=== PATIENT | male | born 1945 | race Caucasian/White ===

== ENCOUNTER 2018-06-15 03:33 | Emergency (ER) | payer OTHER ==
[2018-06-15] MEDS ORDERED: IPRATROPIUM BROM 0.5MG/2.5ML ONE ×2 (04:18→05:23)
[2018-06-15] MEDS ORDERED: ALBUTEROL 2.5 MG/3 ML NEB SOL ONE ×2 (04:18→05:23)
[2018-06-15 04:54] LABS: Absolute Lymphocytes (CBC) 0.8 K/uL (0.7-4.9); Absolute Monocytes 0.6 K/uL (0.1-1.3); Absolute Neutrophil 4.7 K/uL (1.8-8.0); Basophils % 1.5 % (0-1.3); Eosinophils % 1.2 % (0-4.4); Hematocrit 40.9 % (39.6-49.0); Lymphocytes % 12.7 % (15.3-44.8); MPV 9.1 fL (7.6-11.3); Monocytes % 9.4 % (3.3-12.3); RBC Red Blood Cell Count 4.68 M/uL (4.33-5.43)
[2018-06-15 04:59] LABS: Protime INR 1.04
[2018-06-15 05:14] LABS: ALT/SGPT 21 U/L (12-78); AST/SGOT 14 U/L (15-37); Alkaline Phosphatase 92 U/L (45-117); BUN Blood Urea Nitrogen 16 mg/dL (7-18); Bicarbonate 29 mmol/L (21-32); Bilirubin Direct 0.1 mg/dL (0-0.2); Bilirubin Total 0.3 mg/dL (0.2-1.0); CKMB Creatine Kinase MB 2.8 ng/mL (0.3-3.6); Creatine Phosphokinase 183 U/L (39-308); Glucose Level 131 mg/dL (74-106); Lipase 123 U/L (73-393); NT PRO-BNP 2401 pg/mL (<125); Protein, Total 7.6 g/dL (6.4-8.2); Sodium Level 140 mmol/L (136-145); Troponin (Emerg Dept Use Only) < 0.02 ng/mL (0.0-0.045)
--- NOTE | 2018-06-15 06:02 | EDPHYS ---
Physician Documentation [facility] Name: Zelalem Mendiola Age: 72 yrs Sex: Male : 1945 Arrival Date: 06/15/2018 Time: 03:38 Bed 16 Private MD: Ashley Rizzo ED Physician Alfredo Ash HPI: 06/15 04:41 This 72 yrs old Male presents to ER via Wheelchair with complaints of tw4 Breathing Difficulty. 04:41 The patient has shortness of breath at rest. Onset: The symptoms/episode began/occurred tw4 3 day(s) ago. Duration: The symptoms are continuous, and are unchanged since they started. The patient's shortness of breath is aggravated by exertion, is alleviated by rest. Associated signs and symptoms: Pertinent positives: non-productive cough. Severity of symptoms: At their worst the symptoms were moderate in the emergency department the symptoms are unchanged. The patient has not experienced similar symptoms in the past. Historical: - Allergies: 04:00 No Known Allergies; rr5 - PMHx: 04:00 Cataracts; rr5 - PSHx: 04:00 kidney stone; rr5 - Immunization history:: Adult Immunizations not up to date. - Social history:: Smoking status: Patient uses tobacco products, 1 1/2 pack. - Ebola Screening: : Patient negative for fever greater than or equal to 101.5 degrees Fahrenheit, and additional compatible Ebola Virus Disease symptoms Patient denies exposure to infectious person Patient denies travel to an Ebola-affected area in the 21 days before illness onset. ROS: 04:41 Constitutional: Negative for fever, chills, and weight loss, Eyes: Negative for injury, tw4 pain, redness, and discharge, Cardiovascular: Negative for chest pain, palpitations, and edema, Abdomen/GI: Negative for abdominal pain, nausea, vomiting, diarrhea, and constipation. 04:41 Respiratory: Positive for Negative for dyspnea on exertion, hemoptysis, orthopnea, pleurisy, shortness of breath, sputum production. Exam: 04:41 Constitutional: This is a well developed, well nourished patient who is awake, alert, tw4 and in no acute distress. Head/Face: Normocephalic, atraumatic. Chest/axilla: Normal chest wall appearance and motion. Nontender with no deformity. No lesions are appreciated. Cardiovascular: Regular rate and rhythm with a normal S1 and S2. No gallops, murmurs, or rubs. Normal PMI, no JVD. No pulse deficits. 04:41 Abdomen/GI: Soft, non-tender, with normal bowel sounds. No distension or tympany. No guarding or rebound. No evidence of tenderness throughout. Back: No spinal tenderness. No costovertebral tenderness. Full range of motion. MS/ Extremity: Pulses equal, no cyanosis. Neurovascular intact. Full, normal range of motion. Neuro: Awake and alert, GCS 15, oriented to person, place, time, and situation. Cranial nerves II-XII grossly intact. Motor strength 5/5 in all extremities. Sensory grossly intact. Cerebellar exam normal. Normal gait. 04:41 Respiratory: the patient does not display signs of respiratory distress, Respirations: normal, Breath sounds: wheezing: Vital Signs: 03:50 BP 170 / 85; Pulse 95; Resp 23; Temp 98.9; Pulse Ox 96% ; Weight 102.06 kg; Height 5 rr5 ft. 9 in. (175.26 cm); Pain 0/10; 05:00 BP 135 / 70; Pulse 90; Resp 21; Pulse Ox 95% ; rr5 05:30 BP 144 / 79; Pulse 109; Resp 21; Pulse Ox 95% on 3 lpm NC; rr5 06:15 BP 130 / 70; Pulse 99; Resp 20; Pulse Ox 96% on R/A; rr5 03:50 Body Mass Index 33.23 (102.06 kg, 175.26 cm) rr5 MDM: 04:02 Patient medically screened. tw4 04:41 Differential diagnosis: reactive airway disease. Data reviewed: vital signs, nurses tw4 notes. Counseling: I had a detailed discussion with the patient and/or guardian regarding: the historical points, exam findings, and any diagnostic results supporting the discharge/admit diagnosis. 06/15 04:05 Order name: Blood Culture Adult (2) tw4 06/15 04:05 Order name: BMP; Complete Time: 06:04 06/15 06:04 Interpretation: Normal except: GLUC 131; CRE 1.58; GFR 44. tw4 06/15 04:05 Order name: CBC with Diff; Complete Time: 06:04 06/15 06:04 Interpretation: Normal except: ADRIA% 75.2; LYM% 12.7; BASO% 1.5. 06/15 04:05 Order name: Ckmb 06/15 04:05 Order name: CPK 06/15 04:05 Order name: D-Dimer; Complete Time: 06:04 06/15 06:04 Interpretation: Normal except: D-DIMER 771. 06/15 04:05 Order name: XRAY CXR (1 view) 06/15 04:05 Order name: Hepatic Function; Complete Time: 06:04 06/15 06:04 Interpretation: Normal except: AST 14; GLOB 3.6. 06/15 04:05 Order name: Lipase 06/15 04:05 Order name: Magnesium 06/15 04:05 Order name: NT PRO-BNP 06/15 04:05 Order name: PT-INR 06/15 04:05 Order name: Ptt, Activated 06/15 04:05 Order name: Troponin (emerg Dept Use Only) 06/15 04:05 Order name: Cardiac monitoring; Complete Time: 05:10 06/15 04:05 Order name: EKG - Nurse/Tech; Complete Time: 04:13 06/15 04:05 Order name: IV Saline Lock; Complete Time: 04:23 06/15 04:05 Order name: Labs collected and sent; Complete Time: 04:23 06/15 04:05 Order name: O2 Per Protocol; Complete Time: 04:23 06/15 04:05 Order name: O2 Sat Monitoring; Complete Time: 04:23 tw4 EC:59 Rate is 95 beats/min. Rhythm is regular, Sinus arrythmia. [place] interval is normal. QRS tw4 interval is normal. QT interval is prolonged at 384 msec. T waves are Inverted in leads II, III, aVF. No ST changes noted. Clinical impression: NSR w/ Non-specific ST/T Changes. Interpreted by me. Reviewed by me. Administered Medications: 04:10 Drug: DuoNeb (3:1) (2.5 mg - 0.5 mg) 3 ml Route: Nebulizer; rr5 06:00 Follow up: Response: No adverse reaction rr5 05:00 Drug: DuoNeb (3:1) (2.5 mg - 0.5 mg) 3 ml Route: Nebulizer; rr5 06:05 Follow up: Response: No adverse reaction rr5 Disposition: 06/15/18 06:01 Discharged to Home. Impression: Acute bronchospasm. - Condition is Stable. - Discharge Instructions: Bronchospasm, Adult, How to Use an Inhaler. - Prescriptions for Tessalon Perles 100 mg Oral Capsule - take 1 capsule by ORAL route every 8 hours As needed; 15 capsule. Medrol (Farhan) 4 mg Oral Tablets, Dose Pack - take 1 tablet by ORAL route as directed - follow package instructions; 1 packet. Albuterol Sulfate 90 mcg/actuation - inhale 1-2 puff by INHALATION route every 4-6 hours; 1 Inhaler. - Medication Reconciliation Form, Thank You Letter, Antibiotic Education, Prescription Opioid Use form. - Follow up: Ashley Rizzo MD; When: Upon discharge from the Emergency Department; Reason: If symptoms return, Recheck today's complaints, Continuance of care. - Problem is new. - Symptoms have improved. Signatures: Dispatcher [employer] EDLA Lowell Johnson, RN RN jb4 Alfredo Ash MD MD tw4 Bam Taylor, LILA RN rr5 Corrections: (The following items were deleted from the chart) 06:20 06:01 06/15/2018 06:01 Discharged to Home. Impression: Acute bronchospasm. Condition is rr5 Stable. Forms are Medication Reconciliation Form, Thank You Letter, Antibiotic Education, Prescription Opioid Use. Follow up: Ashley Rizzo; When: Upon discharge from the Emergency Department; Reason: If symptoms return, Recheck today's complaints, Continuance of care. Problem is new. Symptoms have improved. tw4
--- NOTE | 2018-06-15 06:02 | ER ---
Nurse's Notes [facility] Name: Zelalem Mendiola Age: 72 yrs Sex: Male : 1945 Arrival Date: 06/15/2018 Time: 03:38 Bed 16 Private MD: Ashley Rizzo Diagnosis: Acute bronchospasm Presentation: 06/15 03:50 Presenting complaint: Patient states: I'm having dry cough for couple of weeks and rr5 colds yesterday. but its getting worse now I feel something that if I will sleep I will not wake up anymore. 03:50 Transition of care: patient was not received from another setting of care. Onset of rr5 symptoms was June 15, 2018. Risk Assessment: Do you want to hurt yourself or someone else? Patient reports no desire to harm self or others. Initial Sepsis Screen: Does the patient meet any 2 criteria? No. Patient's initial sepsis screen is negative. Does the patient have a suspected source of infection? No. Patient's initial sepsis screen is negative. Care prior to arrival: None. 03:50 Method Of Arrival: Wheelchair rr5 03:50 Acuity: PADMAJA 3 rr5 Triage Assessment: 04:00 General: Appears in no apparent distress. uncomfortable, Behavior is calm, cooperative, rr5 appropriate for age. Respiratory: Reports Onset: The symptoms/episode began/occurred gradually, the patient has mild shortness of breath. Historical: - Allergies: 04:00 No Known Allergies; rr5 - PMHx: 04:00 Cataracts; rr5 - PSHx: 04:00 kidney stone; rr5 - Immunization history:: Adult Immunizations not up to date. - Social history:: Smoking status: Patient uses tobacco products, 1 1/2 pack. - Ebola Screening: : Patient negative for fever greater than or equal to 101.5 degrees Fahrenheit, and additional compatible Ebola Virus Disease symptoms Patient denies exposure to infectious person Patient denies travel to an Ebola-affected area in the 21 days before illness onset. Screenin:30 Abuse screen: Denies threats or abuse. Denies injuries from another. Nutritional rr5 screening: No deficits noted. Tuberculosis screening: No symptoms or risk factors identified. Fall Risk IV access (20 points). Total Snow Fall Scale indicates No Risk (0-24 pts). Assessment: 04:00 General: Appears in no apparent distress. uncomfortable, Behavior is calm, cooperative, rr5 appropriate for age. Pain: Denies pain. Neuro: Level of Consciousness is awake, alert, obeys commands, Oriented to person, place, time, situation, Appropriate for age. Cardiovascular: Rhythm is sinus rhythm. Respiratory: Airway is patent Respiratory effort is even, Respiratory pattern is tachypnea Breath sounds with wheezes. GI: No signs and/or symptoms were reported involving the gastrointestinal system. : No signs and/or symptoms were reported regarding the genitourinary system. EENT: No signs and/or symptoms were reported regarding the EENT system. Derm: Skin temperature is warm. Musculoskeletal: Capillary refill < 3 seconds, Range of motion: intact in all extremities. 04:50 Reassessment: Patient appears in no apparent distress at this time. Patient is alert, rr5 oriented x 3, equal unlabored respirations, skin warm/dry/pink. feeling much better Patient denies pain at this time. Patient states feeling better. Patient states symptoms have improved. 05:30 Reassessment: Patient appears in no apparent distress at this time. Patient is alert, rr5 oriented x 3, equal unlabored respirations, skin warm/dry/pink. Patient states feeling better. Patient states symptoms have improved. 06:15 Reassessment: Patient appears in no apparent distress at this time. Patient is alert, rr5 oriented x 3, equal unlabored respirations, skin warm/dry/pink. discharge instruction given and explained without complaints made. Patient denies pain at this time. Patient states feeling better. Patient states symptoms have improved. Vital Signs: 03:50 BP 170 / 85; Pulse 95; Resp 23; Temp 98.9; Pulse Ox 96% ; Weight 102.06 kg; Height 5 rr5 ft. 9 in. (175.26 cm); Pain 0/10; 05:00 BP 135 / 70; Pulse 90; Resp 21; Pulse Ox 95% ; rr5 05:30 BP 144 / 79; Pulse 109; Resp 21; Pulse Ox 95% on 3 lpm NC; rr5 06:15 BP 130 / 70; Pulse 99; Resp 20; Pulse Ox 96% on R/A; rr5 03:50 Body Mass Index 33.23 (102.06 kg, 175.26 cm) rr5 ED Course: 03:38 Patient arrived in ED. es 03:39 Ashley Rizzo MD is Private Physician. es 03:51 Bam Taylor, LILA is Primary Nurse. rr5 04:00 Triage completed. rr5 04:00 Arm band placed on. rr5 04:02 Alfredo Ash MD is Attending Physician. tw4 04:05 Patient has correct armband on for positive identification. Placed in gown. Bed in low rr5 position. Call light in reach. Side rails up X 1. security monitor on. Pulse ox on. NIBP on. 04:05 No provider procedures requiring assistance completed. rr5 04:05 Inserted saline lock: 20 gauge in left antecubital area, using aseptic technique. Blood rr5 collected. 04:10 Initial Neb Treatment Given as ordered Patient was instructed and evaluated on rr5 procedure Patient tolerated procedure well without adverse effect. 04:30 XRAY CXR (1 view) In Process Unspecified. EDMS 05:00 Subsequent Neb Treatment Given as ordered Patient was reinforced on procedure Patient rr5 tolerated procedure well without adverse effect. 05:01 Notified ED physician of a critical lab result(s). 771 d-dimer. bb 06:01 Ashley Rizzo MD is Referral Physician. tw4 06:15 IV discontinued, intact, bleeding controlled, No redness/swelling at site. Pressure rr5 dressing applied. Administered Medications: 04:10 Drug: DuoNeb (3:1) (2.5 mg - 0.5 mg) 3 ml Route: Nebulizer; rr5 06:00 Follow up: Response: No adverse reaction rr5 05:00 Drug: DuoNeb (3:1) (2.5 mg - 0.5 mg) 3 ml Route: Nebulizer; rr5 06:05 Follow up: Response: No adverse reaction rr5 Outcome: 06:01 Discharge ordered by . tw4 06:18 Discharged to home ambulatory, with family. rr5 06:18 Condition: stable 06:18 Discharge instructions given to patient, Instructed on discharge instructions, follow up and referral plans. medication usage, Demonstrated understanding of instructions, follow-up care, medications, Prescriptions given X 3. 06:20 Patient left the ED. rr5 Signatures: Dispatcher [employer] Cheryl Burden Brenda, RN RN bb Wadley, Terrence, MD MD tw4 Bam Taylor RN RN rr5 Corrections: (The following items were deleted from the chart) 05:24 05:00 Initial Neb Treatment Given as ordered Patient was instructed and evaluated on rr5 procedure Patient tolerated procedure well without adverse effect Subsequent Neb Treatment Given as ordered Patient was reinforced on procedure Patient tolerated procedure well without adverse effect rr5
--- NOTE | 2018-06-15 10:17 | RAD REPORT ---
EXAM DESCRIPTION: RAD - Chest Single View - 06/15/2018 4:30 am CLINICAL HISTORY: Dyspnea COMPARISON: June 01 TECHNIQUE: AP portable chest image was obtained 0424 hours . FINDINGS: No focal lung parenchymal process. Lung markings are not substantially different when adju sting for portable technique. No significant failure or volume overload. Heart and vasculature are no rmal. No measurable pleural effusion and no pneumothorax. No acute bony abnormality seen. No acute ao rtic findings suspected. IMPRESSION: No focal mass, consolidation or significant failure finding. Baseline prominence of the interstitial markings could potentially mask early interstitial edema or i nfiltrate.
--- NOTE | 2018-06-15 16:22 | EKG ---
Test Date: 2018-06-15 Test Time: 03:55:40 Nail Setter: EVI MEASUREMENT RESULTS: Intervals: Rate: 95 ND: 162 QRSD: 104 QT: 384 QTc: 482 [place]: P: 74 ND: 162 QRS: 60 T: 254 INTERPRETIVE STATEMENTS: Normal sinus rhythm with sinus arrhythmia ST & T wave abnormality, consider inferior ischemia Prolonged QT Abnormal ECG Compared to ECG 06/15/2018 03:54:14 ST (T wave) deviation now present Possible ischemia now present Prolonged QT interval now present Atrial premature complex(es) no longer present Myocardial infarct finding no longer present Electronically Signed On 06-15-18 16:20:30 COMPONENT INSPECTOR by Willy Medina
== END 2018-06-15 06:20 | disposition home or self-care (01) ==
LOC: ER 03:33
DX: J98.01 Acute bronchospasm (principal); Z72.0 Tobacco use
CPT/HCPCS: 36415; 71045; 80048; 80076; 82550; 82553; 83690; 83735; 83880; 84484; 85025; 85379; 85610; 85730; 87040; 93005; 94640; 99285

== ENCOUNTER 2019-03-05 16:53 | Inpatient (IN) | payer OTHER ==
[2019-03-05] MEDS ORDERED: ASPIRIN 81 MG CHEWABLE TABLET ONE (18:11)
[2019-03-05] MEDS ORDERED: ALBUTEROL 2.5 MG/3 ML NEB SOL ONE (18:11)
[2019-03-05] MEDS ORDERED: IPRATROPIUM BROM 0.5MG/2.5ML ONE (18:11)
[2019-03-05] MEDS ORDERED: PANTOPRAZOLE 40MG TABLET PO ONE (18:12)
[2019-03-05] MEDS ORDERED: predniSONE 20 MG TAB ONE (18:12)
[2019-03-05 18:28] LABS: Absolute Lymphocytes (CBC) 1.9 K/uL (0.7-4.9); Basophils % 1.1 % (0-1.3); Hematocrit 37.9 % (39.6-49.0); Lymphocytes % 25.2 % (15.3-44.8); RBC Red Blood Cell Count 4.44 M/uL (4.33-5.43)
[2019-03-05 18:31] LABS: Protime INR 1.02
[2019-03-05] MEDS ORDERED: FENTANYL CITR 100 MCG/2 ML ONE (18:38)
[2019-03-05 18:52] LABS: ALT/SGPT 23 U/L (12-78); AST/SGOT 16 U/L (15-37); Albumin 3.7 g/dL (3.4-5.0); Alkaline Phosphatase 78 U/L (45-117); BUN Blood Urea Nitrogen 18 mg/dL (7-18); Bicarbonate 28 mmol/L (21-32); Bilirubin Direct 0.1 mg/dL (0-0.2); Bilirubin Total 0.4 mg/dL (0.2-1.0); Glucose Level 90 mg/dL (74-106); Magnesium 2.1 mg/dL (1.8-2.4); NT PRO-BNP 1732 pg/mL (<125); Potassium 3.9 mmol/L (3.5-5.1); Protein, Total 7.3 g/dL (6.4-8.2); Sodium Level 142 mmol/L (136-145); Troponin (Emerg Dept Use Only) < 0.02 ng/mL (0.0-0.045)
--- NOTE | 2019-03-05 19:02 | RAD REPORT ---
EXAM DESCRIPTION: RAD - Chest Single View - 03/05/2019 6:13 pm CLINICAL HISTORY: Left-sided chest pain, left-sided chest pressure COMPARISON: June 2018 TECHNIQUE: AP portable chest image was obtained 1753 hours . FINDINGS: No focal lung parenchymal process. Interstitial pattern is prominent but not clearly diffe rent. Heart and vasculature are normal. No measurable pleural effusion and no pneumothorax. No acute bony abnormality seen. No acute aortic findings suspected. IMPRESSION: No acute cardiopulmonary process. No significant interval change.
--- NOTE | 2019-03-05 21:25 | EDPHYS ---
Physician Documentation [facility] Name: Zelalem Mendiola Age: 73 yrs Sex: Male : 1945 Arrival Date: 03/05/2019 Time: 16:55 Bed 24 Private MD: Ashley Rizzo ED Physician Ivan Hansen HPI: 03/05 19:42 This 73 yrs old Male presents to ER via Ambulatory with complaints of Chest snw Pain. 19:42 Onset: The symptoms/episode began/occurred gradually, 6 month(s) ago, and became worse snw yesterday, and became persistent. Associated signs and symptoms: Pertinent positives: congestion. Modifying factors: The patient symptoms are alleviated by nothing, the patient symptoms are aggravated by coughing. The patient has experienced similar episodes in the past. It is unknown whether or not the patient has recently seen a physician. no diaphoresis, no nausea, no vomiting. Historical: - Allergies: 17:01 No Known Allergies; hb - Home Meds: 17:01 None [Active]; hb - PMHx: 17:01 Cataracts; hb - PSHx: 17:01 kidney stone; hb - Immunization history:: Adult Immunizations up to date. - Social history:: Smoking status: Patient uses tobacco products, smokes one pack cigarettes per day. - Ebola Screening: : No symptoms or risks identified at this time. ROS: 19:42 Constitutional: Negative for fever, chills, and weight loss, Eyes: Negative for injury, snw pain, redness, and discharge, ENT: Negative for injury, pain, and discharge, Neck: Negative for injury, pain, and swelling, Respiratory: Negative for shortness of breath, cough, wheezing, and pleuritic chest pain, Abdomen/GI: Negative for abdominal pain, nausea, vomiting, diarrhea, and constipation, Back: Negative for injury and pain, : Negative for injury, bleeding, discharge, and swelling, MS/Extremity: Negative for injury and deformity, Skin: Negative for injury, rash, and discoloration, Neuro: Negative for headache, weakness, numbness, tingling, and seizure, Psych: Negative for depression, anxiety, suicide ideation, homicidal ideation, and hallucinations. 19:42 Cardiovascular: Positive for chest pain, of the left clavicle, anterior aspect of left upper chest and mid-sternal area. Exam: 19:41 Constitutional: This is a well developed, well nourished patient who is awake, alert, snw and in no acute distress. Head/Face: Normocephalic, atraumatic. Eyes: Pupils equal round and reactive to light, extra-ocular motions intact. Lids and lashes normal. Conjunctiva and sclera are non-icteric and not injected. Cornea within normal limits. Periorbital areas with no swelling, redness, or edema. ENT: Nares patent. No nasal discharge, no septal abnormalities noted. Tympanic membranes are normal and external auditory canals are clear. Oropharynx with no redness, swelling, or masses, exudates, or evidence of obstruction, uvula midline. Mucous membranes moist. Neck: Trachea midline, no thyromegaly or masses palpated, and no cervical lymphadenopathy. Supple, full range of motion without nuchal rigidity, or vertebral point tenderness. No Meningismus. Chest/axilla: Normal chest wall appearance and motion. Nontender with no deformity. No lesions are appreciated. Cardiovascular: Regular rate and rhythm with a normal S1 and S2. No gallops, murmurs, or rubs. Normal PMI, no JVD. No pulse deficits. 19:41 Abdomen/GI: Soft, non-tender, with normal bowel sounds. No distension or tympany. No guarding or rebound. No evidence of tenderness throughout. Back: No spinal tenderness. No costovertebral tenderness. Full range of motion. Skin: Warm, dry with normal turgor. Mushtaq color with no rashes, no lesions, and no evidence of cellulitis. MS/ Extremity: Pulses equal, no cyanosis. Neurovascular intact. Full, normal range of motion. Neuro: Awake and alert, GCS 15, oriented to person, place, time, and situation. Cranial nerves II-XII grossly intact. Motor strength 5/5 in all extremities. Sensory grossly intact. Cerebellar exam normal. Normal gait. 19:41 Respiratory: the patient does not display signs of respiratory distress, Respirations: normal, Breath sounds: rhonchi, + upper airway congestion. Vital Signs: 17:00 BP 110 / 68; Pulse 70; Resp 20; Temp 97.8; Pulse Ox 96% on R/A; Weight 99.79 kg; Height hb 5 ft. 9 in. (175.26 cm); Pain 8/10; 18:24 BP 144 / 79; Pulse 63; Resp 18; Pulse Ox 100% on Nebulizer Mask; mg2 19:24 BP 122 / 74; Pulse 69; Resp 18; Pulse Ox 100% on R/A; mg2 20:50 BP 155 / 67; Pulse 66; Resp 18; Pulse Ox 96% on R/A; mg2 22:00 BP 168 / 104; Pulse 70; Resp 18; Pulse Ox 96% on R/A; mg2 22:26 BP 112 / 76; Pulse 71; Resp 18; Temp 98; Pulse Ox 95% on R/A; mg2 22:54 BP 146 / 76; Pulse 77; Resp 16; Pulse Ox 96% on R/A; rv 17:00 Body Mass Index 32.49 (99.79 kg, 175.26 cm) hb MDM: 17:54 Patient medically screened. snw 21:21 Data reviewed: vital signs, nurses notes. Data interpreted: Pulse oximetry: on room air snw is 96 %. Interpretation: hypoxia. Counseling: I had a detailed discussion with the patient and/or guardian regarding: the historical points, exam findings, and any diagnostic results supporting the discharge/admit diagnosis, the presence of at least one elevated blood pressure reading (>120/80) during this emergency department visit, lab results, radiology results, the need for further work-up and treatment in the hospital, markers negative but pt continues with chest pain. . Physician consultation: Dory Friedman MD was called at 21:23, was contacted at 21:23, regarding admission, to the telemetry unit. 03/05 17:35 Order name: Basic Metabolic Panel; Complete Time: 18:59 kdr 03/05 17:35 Order name: CBC with Diff; Complete Time: 18:33 kdr 03/05 17:35 Order name: LFT's; Complete Time: 18:59 kdr 03/05 17:35 Order name: Magnesium; Complete Time: 18:59 kdr 03/05 17:35 Order name: NT PRO-BNP; Complete Time: 18:59 kdr 03/05 17:35 Order name: PT-INR; Complete Time: 18:39 kdr 03/05 17:35 Order name: Troponin (emerg Dept Use Only); Complete Time: 18:59 kdr 03/05 20:04 Order name: Troponin (emerg Dept Use Only); Complete Time: 20:55 snw 03/05 21:56 Order name: Basic Metabolic Panel EDVT 03/05 21:56 Order name: Basic Metabolic Panel ED[facility] 03/05 21:56 Order name: CBC with Automated Diff EDVT 03/05 21:56 Order name: CBC with Automated Diff EDVT 03/05 21:56 Order name: Lipid Profile EDVT 03/05 21:56 Order name: Lipid Profile ED[facility] 03/05 17:00 Order name: EKG; Complete Time: 17:05 hb 03/05 17:00 Order name: EKG - Nurse/Tech; Complete Time: 17:00 hb 03/05 17:35 Order name: XRAY Chest (1 view); Complete Time: 19:09 kdr 03/05 21:56 Order name: CONS Physician Consult EDVT 03/05 21:56 Order name: Heart Healthy EDVT 03/05 21:56 Order name: Echo with Doppler ED[facility] 03/05 21:56 Order name: EKG Electrocardiogram [facility] 03/05 21:56 Order name: EKG Electrocardiogram [facility] 03/05 21:56 Order name: Troponin I [facility] 03/05 21:56 Order name: Troponin I ED[facility] 03/05 21:56 Order name: Troponin I [facility] 03/05 17:35 Order name: Cardiac monitoring; Complete Time: 18:10 kdr 03/05 17:35 Order name: IV Saline Lock; Complete Time: 18:10 kdr 03/05 17:35 Order name: Labs collected and sent; Complete Time: 18:10 kdr 03/05 17:35 Order name: O2 Per Protocol; Complete Time: 18:10 kdr 03/05 17:35 Order name: O2 Sat Monitoring; Complete Time: 18:10 kdr 03/05 20:04 Order name: EKG - Nurse/Tech; Complete Time: 20:23 snw Administered Medications: 18:18 Drug: Albuterol - atroVENT (3:1) (2.5 mg - 0.5 mg) 3 ml Route: Nebulizer; mg2 19:08 Follow up: Response: No adverse reaction mg2 18:18 Drug: ProTONIX 40 mg Route: PO; mg2 19:07 Follow up: Response: No adverse reaction mg2 18:18 Drug: Aspirin Chewable Tablet 324 mg Route: PO; mg2 19:07 Follow up: Response: No adverse reaction mg2 18:18 Drug: predniSONE 40 mg Route: PO; mg2 19:07 Follow up: Response: No adverse reaction mg2 18:41 Drug: fentaNYL (PF) 25 mcg Route: IVP; Site: right antecubital; mg2 19:07 Follow up: Response: No adverse reaction; Marked relief of symptoms mg2 Disposition: 03/06 07:16 Co-signature as Attending Physician, Ivan Hansen MD I agree with the assessment and kdr plan of care. Disposition: 03/05/19 21:24 Hospitalization ordered by Dory Friedman for Observation. Preliminary diagnosis is Chest pain, unspecified. - Bed requested for Telemetry/MedSurg (observation). - Status is Observation. rv - Condition is Stable. - Problem is an acute exacerbation. - Symptoms are unchanged. UTI on Admission? No Signatures: Dispatcher [employer] EDMS Ivan Hansen MD MD [facility] Linda Silva, WAITER/WAITRESS TOURIST CLASS-C WAITER/WAITRESS TOURIST CLASS-Csnw Taylor Laguerre, RN RN cg Anju Vasques, RN RN Rahat Kong, RN RN mg2 Rubin Hanson, RN RN rv Corrections: (The following items were deleted from the chart) 03/05 22:20 21:24 Hospitalization Ordered by Dory Friedman MD for Observation. Preliminary cg diagnosis is Chest pain, unspecified. Bed requested for Telemetry/MedSurg (observation). Status is Observation. Condition is Stable. Problem is an acute exacerbation. Symptoms are unchanged. UTI on Admission? No. snw 23:00 22:20 03/05/2019 21:24 Hospitalization Ordered by Dory Friedman MD for Observation. rv Preliminary diagnosis is Chest pain, unspecified. Bed requested for Telemetry/MedSurg (observation). Status is Observation. Condition is Stable. Problem is an acute exacerbation. Symptoms are unchanged. UTI on Admission? No. cg
--- NOTE | 2019-03-05 21:25 | ER ---
Nurse's Notes [facility] Name: Zelalem Mendiola Age: 73 yrs Sex: Male : 1945 Arrival Date: 03/05/2019 Time: 16:55 Bed 24 Private MD: Ashley Rizzo Diagnosis: Chest pain, unspecified Presentation: 03/05 16:58 Presenting complaint: Left sided chest pressure 8/10 that started while sitting hb watching television at 1400 today. Denies SOB/nausea. Pain does not radiate. Transition of care: patient was not received from another setting of care. Onset of symptoms was March 05, 2019. Risk Assessment: Do you want to hurt yourself or someone else? Patient reports no desire to harm self or others. Care prior to arrival: None. 16:58 Method Of Arrival: Ambulatory 16:58 Acuity: PADMAJA 3 hb 18:23 Initial Sepsis Screen: Does the patient meet any 2 criteria? No. Patient's initial mg2 sepsis screen is negative. Does the patient have a suspected source of infection? No. Patient's initial sepsis screen is negative. Historical: - Allergies: 17:01 No Known Allergies; hb - Home Meds: 17:01 None [Active]; hb - PMHx: 17:01 Cataracts; hb - PSHx: 17:01 kidney stone; hb - Immunization history:: Adult Immunizations up to date. - Social history:: Smoking status: Patient uses tobacco products, smokes one pack cigarettes per day. - Ebola Screening: : No symptoms or risks identified at this time. Screenin:23 Abuse screen: Denies threats or abuse. Denies injuries from another. Nutritional mg2 screening: No deficits noted. Tuberculosis screening: No symptoms or risk factors identified. Fall Risk IV access (20 points). Assessment: 18:22 General: Appears in no apparent distress. comfortable, Behavior is calm, cooperative. mg2 Pain: Complains of pain in chest Pain does not radiate. Pain currently is 4 out of 10 on a pain scale. Quality of pain is described as aching, Pain began gradually, Is intermittent. Neuro: Level of Consciousness is awake, alert, obeys commands, Oriented to person, place, time, situation. Cardiovascular: Reports chest pain, Capillary refill < 3 seconds Patient's skin is warm and dry. Respiratory: Airway is patent Respiratory effort is even, unlabored, Respiratory pattern is regular, symmetrical. GI: No signs and/or symptoms were reported involving the gastrointestinal system. : No signs and/or symptoms were reported regarding the genitourinary system. EENT: No signs and/or symptoms were reported regarding the EENT system. Derm: Skin is intact, is healthy with good turgor, Skin is pink, warm \T\ dry. normal. Musculoskeletal: Circulation, motion, and sensation intact. Capillary refill < 3 seconds. 20:49 Reassessment: Patient appears in no apparent distress at this time. Patient and/or mg2 family updated on plan of care and expected duration. Pain level reassessed. Patient is alert, oriented x 3, equal unlabored respirations, skin warm/dry/pink. patient informed about the need to wait for the result of the repeat Troponin. Vital Signs: 17:00 BP 110 / 68; Pulse 70; Resp 20; Temp 97.8; Pulse Ox 96% on R/A; Weight 99.79 kg; Height hb 5 ft. 9 in. (175.26 cm); Pain 8/10; 18:24 BP 144 / 79; Pulse 63; Resp 18; Pulse Ox 100% on Nebulizer Mask; mg2 19:24 BP 122 / 74; Pulse 69; Resp 18; Pulse Ox 100% on R/A; mg2 20:50 BP 155 / 67; Pulse 66; Resp 18; Pulse Ox 96% on R/A; mg2 22:00 BP 168 / 104; Pulse 70; Resp 18; Pulse Ox 96% on R/A; mg2 22:26 BP 112 / 76; Pulse 71; Resp 18; Temp 98; Pulse Ox 95% on R/A; mg2 22:54 BP 146 / 76; Pulse 77; Resp 16; Pulse Ox 96% on R/A; rv 17:00 Body Mass Index 32.49 (99.79 kg, 175.26 cm) hb ED Course: 16:55 Patient arrived in ED. mr 16:56 Ashley Rizzo MD is Private Physician. mr 16:59 Triage completed. hb 17:01 Arm band placed on. hb 17:11 EKG done, by master certified rv technician. reviewed by Ivan Hansen MD. sm3 17:35 Ivan Hansen MD is Attending Physician. kdr 17:36 Rahat Kong RN is Primary Nurse. mg2 17:54 Linda Silva FNP-C [facility]. snw 18:10 Initial lab(s) drawn, by me, sent to lab. Inserted saline lock: 20 gauge in right lt1 antecubital area, using aseptic technique. 18:14 XRAY Chest (1 view) In Process Unspecified. EDMS 18:23 Patient has correct armband on for positive identification. security monitor on. Pulse mg2 ox on. NIBP on. 18:24 No provider procedures requiring assistance completed. mg2 21:24 Dory Friedman MD is Hospitalizing Provider. snw 22:26 Patient admitted, IV remains in place. Patient maintains SpO2 saturation greater than mg2 95% on room air. Administered Medications: 18:18 Drug: Albuterol - atroVENT (3:1) (2.5 mg - 0.5 mg) 3 ml Route: Nebulizer; mg2 19:08 Follow up: Response: No adverse reaction mg2 18:18 Drug: ProTONIX 40 mg Route: PO; mg2 19:07 Follow up: Response: No adverse reaction mg2 18:18 Drug: Aspirin Chewable Tablet 324 mg Route: PO; mg2 19:07 Follow up: Response: No adverse reaction mg2 18:18 Drug: predniSONE 40 mg Route: PO; mg2 19:07 Follow up: Response: No adverse reaction mg2 18:41 Drug: fentaNYL (PF) 25 mcg Route: IVP; Site: right antecubital; mg2 19:07 Follow up: Response: No adverse reaction; Marked relief of symptoms mg2 Outcome: 21:24 Decision to Hospitalize by Provider. snw 22:53 Admitted to Tele accompanied by [facility], via wheelchair, room 421, with chart, Report rv called to JANE SHARP 22:53 Condition: good 22:53 Instructed on the need for admit. 23:00 Patient left the ED. rv Signatures: Dispatcher [employer] EDMS Ivan Hansen MD MD [facility] Linda Silva FNP-C FNP-[facility] Viktoria Hernandez Anju Vasques RN RN Rahat Kong RN RN [facility] Kat Lopez 3 Rubin Hanson RN RN rv Liza Glasgow lt1 Corrections: (The following items were deleted from the chart) 17:01 17:00 BP 110 / 68; Pulse 78bpm; Resp 20bpm; Pulse Ox 100% RA; Temp 97.8F; 99.79 kg; hb Height 5 ft. 9 in.; BMI: 32.4; Pain 8/10; hb
[2019-03-05] MEDS ORDERED: ACETAMINOPHEN 500 MG TAB PO PRN (21:52)
[2019-03-05] MEDS ORDERED: ALPRAZOLAM 0.25 MG TABLET PO PRN (21:52)
[2019-03-05] MEDS ORDERED: MORPHINE 4 MG/ML SYR IV PRN (21:52)
[2019-03-06 00:04] VITALS: BMI 33.3
[2019-03-06 03:06] LABS: Urine Appearance CLEAR; Urine Bilirubin NEGATIVE (NEG); Urine Blood NEGATIVE (NEG); Urine Color YELLOW; Urine Glucose 1+ (NEG); Urine Protein NEGATIVE (NEG); Urine Specific Gravity 1.025 (1.005-1.030); Urine Urobilinogen 0.2 mg/dL (0.2-1.0)
[2019-03-06 03:07] LABS: Urine Microscopic Reflex NO UMIC
[2019-03-06 06:20] LABS: Potassium 4.1 mmol/L (3.5-5.1)
--- NOTE | 2019-03-06 06:33 | EKG ---
Test Date: 2019-03-05 Test Time: 20:23:57 Aoc Aadc Operations Staff Officer: RV MEASUREMENT RESULTS: Intervals: Rate: 62 WV: 144 QRSD: 112 QT: 436 QTc: 442 [place]: P: 49 WV: 144 QRS: 67 T: -73 INTERPRETIVE STATEMENTS: Normal sinus rhythm Intraventricular conduction delay ST & T wave abnormality, consider inferolateral ischemia Abnormal ECG Compared to ECG 03/05/2019 17:01:45 Atrial premature complex(es) no longer present ST (T wave) deviation still present Possible ischemia still present Electronically Signed On 03-06-19 06:33:05 CARD WRITER HAND by Micah Powell
--- NOTE | 2019-03-06 06:34 | EKG ---
Test Date: 2019-03-05 Test Time: 17:01:45 Cyanide Pot Hardener: SHANDRA MEASUREMENT RESULTS: Intervals: Rate: 75 OK: 166 QRSD: 110 QT: 426 QTc: 475 [place]: P: 62 OK: 166 QRS: 38 T: -62 INTERPRETIVE STATEMENTS: Sinus rhythm with premature atrial complexes Intraventricular conduction delay ST & T wave abnormality, consider inferior ischemia Abnormal ECG Compared to ECG 06/15/2018 03:55:40 Atrial premature complex(es) now present Sinus arrhythmia no longer present Prolonged QT interval no longer present ST (T wave) deviation still present Electronically Signed On 03-06-19 06:34:30 SWITCH OPERATORS SUPERVISOR by Micah Powell
--- NOTE | 2019-03-06 07:48 | P.HP ---
Certification for Inpatient Patient admitted to: Observation With expected LOS: <2 Midnights Patient will require the following post-hospital care: None Practitioner: I am a practitioner with admitting privileges, knowledge of patient current condition, hospital course, and medical plan of care. Services: Services provided to patient in accordance with Admission requirements found in Title 42 Section 412.3 of the Code of Federal Regulations Patient History Date of Service: 03/05/19 Reason for admission: Chest pain rule out acute coronary syndrome History of Present Illness: Patient is a 73-year-old gentleman who came into the hospital with chest discomfort. Pain was mainly in the sternal region. Patient has been having chest pain on an off for the last few months. However, today was different because he said the pain was waxing and waning. Patient states that the chest pain would come and hit him hard for 5 min but then go away. It would be gone for about 10 min and come back. Since this happen on 2-3 occasions he decided to come to the emergency room for further evaluation. Initial troponins and EKG some changes in the inferior leads. Patient will need further cardiac workup as he has not had a cardiac workup in quite a while. He sees PCP Dr. Rizzo for most of his primary care. He does have some dementia and his gave me most of his history. She states that he gets to be a little forgetful from time to time. Allergies No Known Allergies Allergy (Verified 03/06/19 01:25) Home Medications: NK [No Home Meds] 03/06/19 - Past Medical/Surgical History Has patient received pneumonia vaccine in the past: Yes Diabetic: No -: kidney stone -: davide cataract removal -: davide lens replacement -: lasix - Family History Mother Medical History: Lung disease - Social History Smoking Status: Current every day smoker Alcohol use: No CD- Drugs: No Caffeine use: Yes Place of Residence: Home Review of Systems 10-point ROS is otherwise unremarkable Physical Examination - Vital Signs Temperature: 97.2 F Blood Pressure: 131/64 Pulse: 68 Respirations: 20 Pulse Ox (%): 94 - Physical Exam General: Alert, In no apparent distress, Oriented x3 HEENT: Atraumatic, PERRLA, Mucous membr. moist/pink, EOMI, Sclerae nonicteric Neck: Supple, 2+ carotid pulse no bruit, No LAD, Without JVD or thyroid abnormality Respiratory: Clear to auscultation bilaterally, Normal air movement Cardiovascular: Regular rate/rhythm, Normal S1 S2, No murmurs Gastrointestinal: Normal bowel sounds, Soft and benign, Non-distended, No tenderness Musculoskeletal: No clubbing, No swelling, No tenderness Integumentary: No rashes Neurological: Normal gait, Normal speech, Normal strength at 5/5 x4 extr, Normal tone, Normal affect Lymphatics: No axilla or inguinal lymphadenopathy - Studies Laboratory Data (last 24 hrs) 03/05/19 18:07: PT 12.0, INR 1.02 03/05/19 18:07: WBC 7.5, Hgb 13.4 L, Hct 37.9 L, Plt Count 203 03/05/19 18:07: Sodium 142, Potassium 3.9, BUN 18, Creatinine 1.30, Glucose 90, Magnesium 2.1, Total Bilirubin 0.4, AST 16, ALT 23, Alkaline Phosphatase 78 Assessment & Plan - Problems (Diagnosis) (1) Chest pain, rule out acute myocardial infarction Current Visit: Yes Status: Acute - Plan 1. Serial troponins and EKG 2. Cardiology consultation 3. Echocardiogram and stress test if cardiology is agreeable 4. Anti-platelet therapy, anti coagulation, beta-mateus, statin, and O2 as needed 5. IV morphine for pain 6. Nitro p.r.n. Discharge Plan: Home Plan to discharge in: 24 Hours - Advance Directives Does patient have a Living Will: No Does patient have a Durable POA for Healthcare: No - Code Status/Comfort Care Code Status Assessed: Yes Code Status: Full Code Critical Care: No Time Spent Managing PTS Care (In Minutes): 45
[2019-03-06 07:55] LABS: Absolute Lymphocytes (CBC) 0.5 K/uL (0.7-4.9); Basophils % 1.9 % (0-1.3); Hematocrit 38.3 % (39.6-49.0); Lymphocytes % 5.2 % (15.3-44.8); MPV 8.8 fL (7.6-11.3)
[2019-03-06] MEDS ORDERED: IPRATROPIUM BROM 0.5MG/2.5ML NEB PRN (07:55)
[2019-03-06] MEDS ORDERED: ALBUTEROL 2.5 MG/3 ML NEB SOL NEB PRN (07:55)
[2019-03-06] MEDS: DULERA 100/5 (MOMETASONE/FORMOTEROL) INHALER IH SCH ×2 (09:00→20:49)
[2019-03-06] MEDS: ASPIRIN EC 81 MG TAB PO SCH (09:01)
[2019-03-06] MEDS: METOPROLOL TAR 50 MG TAB PO SCH ×2 (09:02→20:51)
[2019-03-06 09:09] LABS: Blood Morphology Comment NOT SEEN (NOT SEEN); Platelet Estimate ADEQ; Urine White Blood Cell Casts OK
--- NOTE | 2019-03-06 14:55 | P.PN ---
Subjective Date of Service: 03/06/19 Primary Care Provider: Dr. Rizzo Chief Complaint: Chest pain rule out acute coronary syndrome Subjective: Doing well (No more chest pain noted. Patient stable this time) Physical Examination - Vital Signs Temperature: 96.9 F Blood Pressure: 140/67 Pulse: 52 Respirations: 18 Pulse Ox (%): 99 - Physical Exam General: Alert, In no apparent distress, Oriented x3, Cooperative HEENT: Atraumatic Neck: Supple Respiratory: Clear to auscultation bilaterally, Normal air movement Cardiovascular: Normal pulses, Regular rate/rhythm Gastrointestinal: Normal bowel sounds, Soft and benign, Non-distended, No tenderness, No masses, No rebound, No guarding Musculoskeletal: No erythema, No tenderness, No warmth Integumentary: No tenderness/swelling, No erythema, No warmth, No cyanosis Neurological: Normal speech, Normal strength at 5/5 x4 extr, Normal tone - Studies Laboratory Data (last 24 hrs) 03/05/19 18:07: PT 12.0, INR 1.02 03/05/19 18:07: WBC 7.5, Hgb 13.4 L, Hct 37.9 L, Plt Count 203 03/05/19 18:07: Sodium 142, Potassium 3.9, BUN 18, Creatinine 1.30, Glucose 90, Magnesium 2.1, Total Bilirubin 0.4, AST 16, ALT 23, Alkaline Phosphatase 78 Medications List Reviewed: Yes Assessment & Plan Discharge Plan: Home Plan to discharge in: 24 Hours Physician Review Additional Text: Impression: Chest pain Hypertension Hyperlipidemia COPD Tobacco abuse Dementia Plan: Chest pain: So far cardiac enzymes unremarkable. Cardiology recommended cardiac stress test. This will be done tomorrow. If negative plan for discharge tomorrow. Continue aspirin, metoprolol, and statin medication. Continue DVT prophylaxis at this time. Hypertension: Metoprolol started. Continue to adjust medication. Hyperlipidemia: Will start fish oil and Lipitor. COPD: Continue COPD medication. Maintain sats above 90%. Tobacco abuse: Will provide nicotine patch as needed. Tobacco cessation addressed in detail. Dementia: Patient with history of dementia. Patient overall stable at this time. He may follow up with neurology as an outpatient to further address. Time Spent Managing Pts Care (In Minutes): 55
--- NOTE | 2019-03-06 15:31 | CON ---
Chief Complaint: Chest pain. History Of Present Illness: The patient has been having chest pain for several years. He never soug ht medical attention until this hospital visit via the emergency room. He came because his chest mel ns were more severe and more frequent. When he gets the chest pain, it lasts for a second or less. He will have a spell of dozens of them, they will come and go, and then he will go days without any. He had more of the spells that would last for 5 seconds to have less than a second and it would hurt more. None of them sounded like angina. Throughout all of this, he is able to exert himself physic ally, do everything he wants to do. He does not have exertional symptoms, they are all at rest. He has a past history of diabetes and hypertension, although he is on no medications. I think he is a r eluctant medicine taker. He was a cigarette smoker until 2 days ago. Now, he insists he has quit, b ut as far as his history, he is active cigarette smoker, although I am truly hopeful he has stopped. No previous history of myocardial infarction, stroke, or any cardiac workup of any kind. Physical Examination: Vital Signs: 5 feet 9 inches, 226 pounds. General: Obese, alert, oriented, pleasant, not in distress. Lungs: Clear. Carotids: No bruit. Heart: Within normal limits. Extremities: Mildly diminished pulses. Trace edema. No cyanosis, clubbing. Laboratory Data: His electrocardiogram shows sinus rhythm, nonspecific intraventricular conduction d elay, nonspecific ST and T-wave abnormality. Troponins are all normal. Creatinine is 1.3. N-termin al proBNP is 1732. His total cholesterol was 230, triglycerides 334. Blood sugars are 90 and 148 wh en measured twice. Impression: The patient may or may not have ischemic heart disease. It is hard to believe these sym ptoms are due to ischemic heart disease. I think we should do a nuclear stress test and echo Doppler and treated for dyslipidemia and his hypotension. Presently, his blood pressure is 164/67 and encou raged him to follow through with his decision to stop smoking. If the stress test or echo are abnorm al or show significant abnormality, we will talk about doing a cardiac cath tomorrow. ALYSSA Voice ID: [id number] Report ID: [id number]
[2019-03-06] MEDS ORDERED: ENOXAPARIN 40 MG/0.4 ML SQ SCH (17:00)
--- NOTE | 2019-03-06 17:01 | ECHO ---
HEIGHT: 5 ft 9 in WEIGHT: 226 lb 1.6 oz DATE OF STUDY: 03/06/[address]: Dory Friedman MD 2-DIMENSIONAL: YES M.MODE: YES DOPPLER: YES COLOR FLOW: YES TDS: YES PORTABLE: DEFINITY: BUBBLE STUDY: DIAGNOSIS: CHEST PAIN R/O ACS CARDIAC HISTORY: CATHERIZATION: NO SURGERY: NO PROSTHETIC VALVE: NO PACEMAKER: NO MEASUREMENTS (cm) DIASTOLIC (NORMALS) SYSTOLIC (NORMALS) IVSd 1.1 (0.6-1.2) LA Diam 3.7 (1.9-4.0) LVEF 31% LVIDd 6.7 (3.5-5.7) LVIDs 5.7 (2.0-3.5) %FS 15% LVPWd 1.2 (0.6-1.2) Ao Diam 3.0 (2.0-3.7) 2 DIMENSIONAL ASSESSMENT: RIGHT ATRIUM: NORMAL LEFT ATRIUM: DILATED RIGHT VENTRICLE: NORMAL LEFT VENTRICLE: DILATED TRICUSPID VALVE: NORMAL MITRAL VALVE: NORMAL PULMONIC VALVE: NORMAL AORTIC VALVE: NORMAL PERICARDIAL EFFUSION: NONE AORTIC ROOT: NORMAL LEFT VENTRICULAR WALL MOTION: GLOBAL HYPOKINESIS DOPPLER/COLOR FLOW: NORMAL COMMENTS: DEPRESSED LEFT VENTRICULAR EJECTION FRACTION. DILATED LEFT ATRIUM AND LEFT VENTRICLE. TECHNOLOGIST: JONATHON PARRISH
[2019-03-06] MEDS: DOCOSAHEXANOIC AC/EPA 1000 MG PO SCH (20:49)
[2019-03-06] MEDS: ATORVASTATIN 40 MG TAB PO SCH (20:50)
[2019-03-07] MEDS ORDERED: NA CHLORIDE 0.9% 1,000 ML ONE (06:14)
[2019-03-07] MEDS: ASPIRIN EC 81 MG TAB PO SCH (06:26)
[2019-03-07] MEDS: METOPROLOL TAR 50 MG TAB PO SCH ×2 (06:26→21:06)
[2019-03-07] MEDS ORDERED: HEPA 1000U/500MLS 1,000 UNIT/500 ML BAG IV ONE (06:40)
[2019-03-07] MEDS ORDERED: ATROPINE SULF 1 MG/10 ML SYR IV ONE (06:41)
[2019-03-07] MEDS ORDERED: NA CHLORIDE 0.9% 100 ML IV ONE (06:41)
[2019-03-07] MEDS ORDERED: LIDOCAINE 1% MPF 30 ML VIAL ONE (06:41)
[2019-03-07] MEDS ORDERED: FENTANYL CITR 100 MCG/2 ML ONE (07:23)
[2019-03-07] MEDS ORDERED: MIDAZOLAM HCL 2 MG/2 ML INJ ONE (07:23)
[2019-03-07] MEDS ORDERED: PRASUGREL (EFFIENT) 10 MG TAB ONE (08:28)
[2019-03-07] MEDS ORDERED: ASPIRIN 325 MG TAB ONE (08:28)
[2019-03-07] MEDS: DOCOSAHEXANOIC AC/EPA 1000 MG PO SCH ×2 (08:53→21:05)
[2019-03-07] MEDS: DULERA 100/5 (MOMETASONE/FORMOTEROL) INHALER IH SCH ×2 (08:53→21:05)
--- NOTE | 2019-03-07 09:18 | OP ---
Surgeon: Willy Medina MD Admitted by Dr. Firedman on 03/05/2019 with a new onset cardiomyopathy, admitted for heart catheterizatio n today as an inpatient. The patient was brought to the slab worker on 03/07/2019. Procedures: Left heart catheterization, selective coronary arteriogram, LV-gram and primary LAD sten t. Description Of Procedure: Patient was prepped and draped in the routine sterile fashion. Given Vers ed for sedation. A 6-Prydeinig sheath introduced in the right common femoral artery. Angiography there was normal. Angio-Seal was used to close the case. A 6-Prydeinig Ayesha catheter left and right were used respectively for the left main and the right main. The RCA was dominant with moderate plaquing . The circumflex was small and nondominant, but normal. The LAD was noted to have about a 70% steno sis in the mid LAD. An XB 3.5 LAD guide with side hole was used to cannulate the left main for an in tervention. A Ranier wire 0.014 width was used to cross the lesion successfully. A 3.0 x 20 mm Syne rgy stent was placed in the lesion, which covered completely with 0% residual. An LV-gram was done p rior to the stent, showing an ejection fraction of 35% with severe global hypokinesis. End-diastolic pressure was 12 mmHg. There was no gradients. The patient received Angiomax, aspirin, and Effient during the procedure. There were no complications. Blood Loss: 5 cc. Postoperative Diagnoses: 1.Congestive heart failure, severe global hypokinesis, acute systolic. 2.Coronary artery disease, status post successful stent of the left anterior descending, primary. Plan: To continue medical treatment which would include HEATH inhibitors, beta blockers, aspirin, Plav ix, and statin as well as mild diuretic. Patient will be observed overnight. We will send him home in the morning. VALORIE/MATIAS Voice ID: [id number] Report ID: [id number]
--- NOTE | 2019-03-07 12:53 | P.PN ---
Subjective Date of Service: 03/07/19 Primary Care Provider: Dr. Rizzo Chief Complaint: Chest pain rule out acute coronary syndrome Subjective: Other (Patient had heart catheterization today.) Physical Examination - Vital Signs Temperature: 96.8 F Blood Pressure: 150/77 Pulse: 51 Respirations: 18 Pulse Ox (%): 95 - Physical Exam General: Alert, In no apparent distress, Oriented x3, Cooperative HEENT: Atraumatic Neck: Supple Respiratory: Clear to auscultation bilaterally, Normal air movement Cardiovascular: Normal pulses, Regular rate/rhythm Gastrointestinal: Normal bowel sounds, Soft and benign, Non-distended Musculoskeletal: No erythema, No tenderness, No warmth Integumentary: No erythema, No warmth, No cyanosis Neurological: Normal speech, Normal strength at 5/5 x4 extr, Normal tone, Normal affect - Studies Medications List Reviewed: Yes Assessment & Plan Discharge Plan: Home Plan to discharge in: 24 Hours Physician Review Additional Text: Impression: Chest pain status post heart catheterization showing LAD stenosis status post stent Hypertension Hyperlipidemia COPD Tobacco abuse Dementia Plan: Chest painstatus post heart catheterization showing LAD stenosis status post stent: Patient with CAD. Lad showed stenosis. Stent placed. Case discussed with cardiology. Patient will require aspirin, Plavix. Continue with beta- mateus therapy. Patient will likely require HEATH-inhibitor as well. Will continue to monitor closely. Anticipate discharge tomorrow with clinical improvement. Continue post heart catheterization recommendation. Hypertension: Continue metoprolol. Will add lisinopril Continue to adjust medication. Hyperlipidemia: Continue with fish oil and Lipitor. COPD: Continue COPD medication. Maintain sats above 90%. Tobacco abuse: Will provide nicotine patch as needed. Tobacco cessation addressed in detail. Dementia: Patient with history of dementia. Patient overall stable at this time. He may follow up with neurology as an outpatient to further address. Time Spent Managing Pts Care (In Minutes): 55
[2019-03-07] MEDS ORDERED: ACETAMINOPHEN 325 MG TABLET PO PRN (13:00)
[2019-03-07] MEDS ORDERED: DIAZEPAM 5 MG TABLET PO PRN (13:00)
[2019-03-07] MEDS ORDERED: MORPHINE 4 MG/ML SYR IV PRN (13:00)
[2019-03-07] MEDS ORDERED: NITROGLYCERIN 0.4 MG/TAB SL PRN (13:00)
[2019-03-07] MEDS ORDERED: NA CHLORIDE 0.9% 1,000 ML IV SCH (13:00)
[2019-03-07 20:00] VITALS: TEMP 97
[2019-03-07] MEDS ORDERED: LISINOPRIL 10 MG TAB PO SCH (21:00)
[2019-03-07] MEDS: ATORVASTATIN 40 MG TAB PO SCH (21:05)
[2019-03-08 04:26] LABS: Absolute Lymphocytes (CBC) 2.2 K/uL (0.7-4.9); Basophils % 0.5 % (0-1.3); Hematocrit 36.7 % (39.6-49.0); MPV 9.3 fL (7.6-11.3)
[2019-03-08 04:37] LABS: Potassium 3.7 mmol/L (3.5-5.1)
[2019-03-08] MEDS: DULERA 100/5 (MOMETASONE/FORMOTEROL) INHALER IH SCH (08:45)
[2019-03-08] MEDS: METOPROLOL TAR 50 MG TAB PO SCH (08:46)
[2019-03-08] MEDS: DOCOSAHEXANOIC AC/EPA 1000 MG PO SCH (08:46)
[2019-03-08 08:47] VITALS: BP 130/62
[2019-03-08] MEDS ORDERED: CLOPIDOGREL 75 MG TABLET PO SCH (09:00)
[2019-03-08] MEDS ORDERED: ASPIRIN 81 MG CHEWABLE TABLET PO SCH (09:00)
--- NOTE | 2019-03-08 09:34 | P.DS ---
Admission Date: 03/07/19 Discharge Date: 03/08/19 Primary Care Provider: Dr. Rizzo Disposition: ROUTINE DISCHARGE Discharge Condition: GOOD Reason for Admission: Chest pain rule out acute coronary syndrome Consultations: Cardiology-Dr. Medina Procedures: ECHO: EF 31% LEFT VENTRICULAR WALL MOTION: GLOBAL HYPOKINESIS DOPPLER/COLOR FLOW: NORMAL COMMENTS: DEPRESSED LEFT VENTRICULAR EJECTION FRACTION. DILATED LEFT ATRIUM AND LEFT VENTRICLE. Heart Cath: Surgeon: Willy Medina MD Procedures: Left heart catheterization, selective coronary arteriogram, LV- gram and primary LAD stent. Description Of Procedure: The RCA was dominant with moderate plaquing. The circumflex was small and nondominant, but normal. The LAD was noted to have about a 70% stenosis in the mid LAD. A 3.0 x 20 mm Synergy stent was placed in the lesion, which covered completely with 0% residual. An LV-gram was done prior to the stent, showing an ejection fraction of 35% with severe global hypokinesis. End-diastolic pressure was 12 mmHg. There was no gradients. Blood Loss: 5 cc. Postoperative Diagnoses: 1. Congestive heart failure, severe global hypokinesis, acute systolic. 2. Coronary artery disease, status post successful stent of the left anterior descending, primary. Plan: To continue medical treatment which would include HEATH inhibitors, beta blockers, aspirin, Plavix, and statin as well as mild diuretic. Medical Problem List: Chest pain with CAD status post successful stent of the left anterior descending artery with acute on chronic systolic CHF, ejection fraction 35% Hypertension Hyperlipidemia COPD Tobacco abuse Dementia Brief History of Present Illness: 73-year-old male presented to the emergency room with chest pain. Patient was admitted for further evaluation. Hospital Course: Patient presented with chest pain. Patient seen and evaluated by Cardiology. Cardiology recommended heart catheterization evaluation. Echocardiogram revealed systolic CHF with ejection fraction around 31%. Heart catheterization performed. It showed LAD stenosis. Successful stent of left anterior descending artery was done. Ejection fraction 35% noted on heart catheterization. New medication initiated. Patient has done well. At discharge he will continue with aspirin 81 mg daily, Plavix 75 mg daily, lisinopril 10 mg daily, metoprolol 25 mg 1 pill twice daily, Lipitor 40 mg daily , and Lasix 20 mg daily. Education on CAD and CHF will be provided. Patient will continue with a 1500 cc per day fluid restriction and low-salt diet. Patient is to monitor his weight daily. If his weight increases by more than 5 lb he is to contact his PCP or cardiology for further direction. Recommend to follow up with cardiology in 1-2 weeks to follow up this hospitalization and continue his care. Compliance with medication addressed with patient. Patient with hypertension. New medications initiated. It appears patient was not taking any medication prior to admission. At discharge patient will continue with lisinopril 10 mg daily and metoprolol 25 mg 1 pill twice daily. Recommend follow up with cardiology to further monitor and address. Recommend to recheck lab-BMP in 2-4 weeks to monitor his progress. Patient with hyperlipidemia. New medication Lipitor has been added. At discharge he will continue with Lipitor 40 mg daily and fish oil 2000 mg twice daily. Recommend to recheck fasting lipid panel in 6-8 weeks to monitor his progress. Patient with underlying COPD. New medication initiated. At discharge patient will continue with the Dulera 2 puffs twice daily and Pro air 2 puffs 3 times a day as needed for shortness of breath. Recommend to establish care with pulmonology to further monitor and address. Education on COPD will be provided. Patient with tobacco abuse. Tobacco cessation addressed in detail. This can be further addressed by his PCP. Patient with underlying dementia. Recommend to establish care with neurology to further monitor and address. Patient may continue with folic acid 1 mg daily. Vital Signs/Physical Exam: Temp Pulse Resp BP Pulse Ox 97.0 F 66 18 130/62 96 03/08/19 08:00 03/08/19 08:46 03/08/19 08:00 03/08/19 08:46 03/08/19 08:00 General: Alert, In no apparent distress, Oriented x3, Cooperative HEENT: Atraumatic Neck: Supple Respiratory: Clear to auscultation bilaterally, Normal air movement Cardiovascular: Normal pulses, Regular rate/rhythm Gastrointestinal: Normal bowel sounds, Soft and benign, Non-distended, No tenderness, No masses, No rebound, No guarding Musculoskeletal: No erythema, No tenderness, No warmth Integumentary: No erythema, No warmth, No cyanosis Neurological: Normal speech, Normal strength at 5/5 x4 extr, Normal tone Laboratory Data at Discharge: WBC 9.0 K/uL (4.3-10.9) 03/08/19 03:43 Hgb 12.9 g/dL (13.6-17.9) L 03/08/19 03:43 Hct 36.7 % (39.6-49.0) L 03/08/19 03:43 Plt Count 178 K/uL (152-406) 03/08/19 03:43 PT 12.0 SECONDS (9.5-12.5) 03/05/19 18:07 INR 1.02 03/05/19 18:07 Sodium 141 mmol/L (136-145) 03/08/19 03:43 Potassium 3.7 mmol/L (3.5-5.1) 03/08/19 03:43 BUN 17 mg/dL (7-18) 03/08/19 03:43 Creatinine 1.22 mg/dL (0.55-1.3) 03/08/19 03:43 Glucose 91 mg/dL (74-106) 03/08/19 03:43 Magnesium 2.1 mg/dL (1.8-2.4) 03/05/19 18:07 Total Bilirubin 0.4 mg/dL (0.2-1.0) 03/05/19 18:07 AST 16 U/L (15-37) 03/05/19 18:07 ALT 23 U/L (12-78) 03/05/19 18:07 Alkaline Phosphatase 78 U/L (45-117) 03/05/19 18:07 Troponin I < 0.02 ng/mL (0.0-0.045) 03/06/19 08:15 Triglycerides 342 mg/dL (<150) H 03/08/19 03:43 Cholesterol 210 mg/dL (<200) H 03/08/19 03:43 HDL Cholesterol 35 mg/dL (40-60) L 03/08/19 03:43 Cholesterol/HDL Ratio 6.00 03/08/19 03:43 Home Medications: Albuterol Sulfate [Proair Hfa] 2 puff IH TID PRN #1 hfa.aer.ad 03/08/19 Aspirin Chewable [Aspirin Chewable*] 81 mg PO DAILY #90 tab.chew 03/08/19 Atorvastatin Calcium [Lipitor] 40 mg PO BEDTIME #30 tab 03/08/19 Clopidogrel Bisulfate [Plavix*] 75 mg PO DAILY #30 tablet 03/08/19 Docosahexanoic AC/Epa [Fish Oil 1,000 MG*] 2,000 mg PO BID #120 cap 03/08/19 Folic Acid 1 mg PO DAILY #90 tablet 03/08/19 Furosemide [Lasix] 20 mg PO DAILY #30 tab 03/08/19 Lisinopril [Prinivil*] 10 mg PO BEDTIME #30 tab 03/08/19 Metoprolol Tartrate 25 mg PO BID #60 tablet 03/08/19 Mometasone/Formoterol [Dulera 100 Mcg/5 Mcg Inhaler] 2 puff IH BID #1 inhaler New Medications: Albuterol Sulfate [Proair Hfa] 2 puff IH TID PRN #1 hfa.aer.ad PRN Reason: Shortness Of Breath Aspirin Chewable [Aspirin Chewable*] 81 mg PO DAILY #90 tab.chew Atorvastatin Calcium [Lipitor] 40 mg PO BEDTIME #30 tab Clopidogrel Bisulfate [Plavix*] 75 mg PO DAILY #30 tablet Docosahexanoic AC/Epa [Fish Oil 1,000 MG*] 2,000 mg PO BID #120 cap Folic Acid 1 mg PO DAILY #90 tablet Furosemide [Lasix] 20 mg PO DAILY #30 tab Lisinopril [Prinivil*] 10 mg PO BEDTIME #30 tab Metoprolol Tartrate 25 mg PO BID #60 tablet Mometasone/Formoterol [Dulera 100 Mcg/5 Mcg Inhaler] 2 puff IH BID #1 inhaler Patient Discharge Instructions: 1. Recommend follow up with his PCP in 1-2 weeks to follow up this hospitalization. 2. Patient presented with chest pain. Patient seen and evaluated by Cardiology. Cardiology recommended heart catheterization evaluation. Echocardiogram revealed systolic CHF with ejection fraction around 31%. Heart catheterization performed. It showed LAD stenosis. Successful stent of left anterior descending artery was done. Ejection fraction 35% noted on heart catheterization. New medication initiated. Patient has done well. At discharge he will continue with aspirin 81 mg daily, Plavix 75 mg daily, lisinopril 10 mg daily, metoprolol 25 mg 1 pill twice daily , Lipitor 40 mg daily, and Lasix 20 mg daily. Education on CAD and CHF will be provided. Patient will continue with a 1500 cc per day fluid restriction and low-salt diet. Patient is to monitor his weight daily. If his weight increases by more than 5 lb he is to contact his PCP or cardiology for further direction. Recommend to follow up with cardiology in 1-2 weeks to follow up this hospitalization and continue his care. Compliance with medication addressed with patient. 3. Patient with hypertension. New medications initiated. It appears patient was not taking any medication prior to admission. At discharge patient will continue with lisinopril 10 mg daily and metoprolol 25 mg 1 pill twice daily. Recommend follow up with cardiology to further monitor and address. Recommend to recheck lab-BMP in 2-4 weeks to monitor his progress. 4. Patient with hyperlipidemia. New medication Lipitor has been added. At discharge he will continue with Lipitor 40 mg daily and fish oil 2000 mg twice daily. Recommend to recheck fasting lipid panel in 6-8 weeks to monitor his progress. 5. Patient with underlying COPD. New medication initiated. At discharge patient will continue with the Dulera 2 puffs twice daily and Pro air 2 puffs 3 times a day as needed for shortness of breath. Recommend to establish care with pulmonology to further monitor and address. Education on COPD will be provided. 6. Patient with tobacco abuse. Tobacco cessation addressed in detail. This can be further addressed by his PCP. 7. Patient with underlying dementia. Recommend to establish care with neurology to further monitor and address. Patient may continue with folic acid 1 mg daily. Diet: AHA Activity: Ad latoya Time spent managing pt's care (in minutes): 55
[2019-03-08 10:14] VITALS: O2SAT 96
--- NOTE | 2019-03-08 12:31 | PN ---
Date of Progress Note: 03/08/2019 Subjective: Mr. Mendiola was admitted with his heart failure, was found to have an EF of about 30 to 35%. Catheterization was done yesterday of the proximal LAD stent, which was stented successfully. Overnight, he had no arrhythmia. His right groin is intact. Has no complaints. No chest pain. He is breathing comfortably. I will send him home today on aspirin, Plavix, Lipitor, carvedilol, and li sinopril. We will do serial echoes in the office. His ejection fraction improved over 35%. He may be a candidate for Entresto down the road, but we will see how he does with his present regimen. If his ejection fraction does not improve in 90 days, we will consider a defibrillator. He was seen in the office in the next 2 weeks. ASAF Voice ID: [id number] Report ID: [id number]
--- NOTE | 2019-03-10 12:52 | EKG ---
Test Date: 2019-03-08 Test Time: 07:34:40 Production Line Technician: SHANDRA MEASUREMENT RESULTS: Intervals: Rate: 56 PA: 184 QRSD: 120 QT: 502 QTc: 484 [place]: P: 58 PA: 184 QRS: 39 T: 30 INTERPRETIVE STATEMENTS: Sinus bradycardia with sinus arrhythmia Incomplete left bundle branch block ST & T wave abnormality, consider inferior ischemia Abnormal ECG Compared to ECG 03/05/2019 20:23:57 Left bundle-branch block now present Sinus rhythm no longer present Intraventricular conduction delay no longer present ST (T wave) deviation still present Possible ischemia still present Electronically Signed On 03-10-19 12:46:01 HORTICULTURALIST by Willy Medina
== END 2019-03-08 13:35 | disposition home or self-care (01) | DRG 246 ==
LOC: ER 16:53 → ERHOLD 22:05 → 4TH 22:54 → OBSVTOIN 03-07 13:50
PROVIDERS: ADMIT Hospitalist; ATTEND Hospitalist
PROC: 027034Z Dilation of Coronary Artery, One Artery with Drug-eluting Intraluminal Device, Percutaneous Approach (ICD-10-PCS; principal; 2019-03-07)
PROC: 4A023N7 Measurement of Cardiac Sampling and Pressure, Left Heart, Percutaneous Approach (ICD-10-PCS; 2019-03-07)
PROC: B201YZZ Plain Radiography of Multiple Coronary Arteries using Other Contrast (ICD-10-PCS; 2019-03-07)
PROC: B205YZZ Plain Radiography of Left Heart using Other Contrast (ICD-10-PCS; 2019-03-07)
DX: I25.10 Atherosclerotic heart disease of native coronary artery without angina pectoris (principal); I50.21 Acute systolic (congestive) heart failure; E78.5 Hyperlipidemia, unspecified; J44.9 Chronic obstructive pulmonary disease, unspecified; F03.90 Unspecified dementia, unspecified severity, without behavioral disturbance, psychotic disturbance, mood disturbance, and anxiety; I11.0 Hypertensive heart disease with heart failure; F17.210 Nicotine dependence, cigarettes, uncomplicated
CPT/HCPCS: 36415; 71045; 80048; 80061; 80076; 81003; 83735; 83880; 84484; 85025; 85347; 85610; 93005; 93306; 93458; 94640; 96374; 99285; C1725; C1760; C1877; C1893; C9601; G0378; J0583; J1650; J2250; J3010; J7030; J7512; J7606

== ENCOUNTER 2019-05-04 21:29 | Emergency (ER) | payer OTHER ==
--- OUTSIDE RECORDS SUMMARY | 2019-05-04 21:31 | XMS REPORT ---
:1945 Author Organization [employer] Care Team Providers Name Role Phone Ashley Rizzo Provider Role Unavailable Allergies, Adverse Reactions, Alerts Substance Reaction Event Type N.K.D.A. Info Not Available Non Drug Allergy Problems Problem Type Condition Code Onset Dates Condition Status Assessment Dementia without behavioral F03.90 Active disturbance, unspecified dementia type Assessment Follow-up exam Z09 Active Problem Pain in left knee M25.562 Active Assessment Acute systolic congestive heart I50.21 Active failure Problem Pain in right knee M25.561 Active Assessment History of placement of stent in Z95.5 Active LAD coronary artery Problem Other chronic pain G89.29 Active Problem Right leg paresthesias R20.2 Active Problem Elevated blood pressure reading R03.0 Active without diagnosis of hypertension Problem Dementia without behavioral F03.90 Active disturbance, unspecified dementia type Problem Coronary artery disease involving I25.119 Active elim ira coronary artery of elim ira heart with angina pectoris Problem Reduced vision H54.7 Active Problem Acute systolic congestive heart I50.21 Active failure Assessment Coronary artery disease involving I25.119 Active elim ira coronary artery of elim ira heart with angina pectoris Problem Blurry vision H53.8 Active Problem Mixed hyperlipidemia E78.2 Active Problem History of placement of stent in Z95.5 Active LAD coronary artery Problem Chronic diarrhea K52.9 Active Problem Hyperlipidemia, unspecified E78.5 Active hyperlipidemia type Problem Prostate disorder N42.9 Active Problem Cataract extraction status, Z98.49 Active unspecified eye Problem Presence of intraocular lens Z96.1 Active Problem History of kidney stones Z87.442 Active Problem Chronic kidney disease, unspecified N18.9 Active CKD stage Problem Hyperlipemia E78.5 Active Problem Vitamin D deficiency E55.9 Active Medications Medication Code Code Instructions Start End Status Dosage System Date Date Lisinopril ND 67447985081 10 MG Orally Active 1 tablet Once a day Clopidogrel ND 83815194002 75 MG Orally Active 1 tablet Bisulfate Once a day Crestor [facility] 89348727641 20 MG Orally Sept 18, Active 1 tablet Once a day 2018 in evening (for high cholestero l) Ultram [facility] 84684914410 50 MG Orally Active 1 tab as daily needed for severe pain Donepezil HCl [facility] 82246701947 5 MG Orally Mar 21, Active 1 tablet Once a day for 2019 at bedtime dementia Atorvastatin [facility] 28023966316 40 MG Orally Active 1 tablet Calcium Once a day Metoprolol [facility] 99464525855 25 MG Orally Active 1 tablet Tartrate Twice a day with food Advair Diskus [facility] 82514717673 250-50 MCG/DOSE Active 1 puff Inhalation Twice a day Krill Oil [facility] 91861525623 1000 MG Orally Active 1 capsule Twice daily ProAir HFA [facility] 12674673702 108 (90 Base) Active 2 puffs as MCG/ACT needed Inhalation every 6 hrs Aspirin 81 [facility] 18081034640 81 MG Orally Active 1 tablet Once a day Lipitor [facility] 42399196338 10 MG Orally Active 1 tablet Once a day Furosemide [facility] 42187012277 20 MG Orally Active 1 tablet Once a day Results No Known Results Summary Purpose [employer] Submission
--- NOTE | 2019-05-04 22:26 | ER ---
Nurse's Notes [facility] Name: Zelalem Mendiola Age: 73 yrs Sex: Male : 1945 Arrival Date: 05/04/2019 Time: 21:30 Bed 17 Private MD: Diagnosis: Laceration without foreign body of left elbow-skin tear Presentation: 05/04 21:40 Presenting complaint: Patient states: Fall from standing, denies LOC, reports an sg abrasion to the left elbow. Transition of care: patient was not received from another setting of care. Onset of symptoms was May 04, 2019. Risk Assessment: Do you want to hurt yourself or someone else? Patient reports no desire to harm self or others. Initial Sepsis Screen: Does the patient meet any 2 criteria? No. Patient's initial sepsis screen is negative. Does the patient have a suspected source of infection? No. Patient's initial sepsis screen is negative. Care prior to arrival: None. 21:40 Method Of Arrival: Ambulatory sg 21:40 Acuity: PADMAJA 4 sg Triage Assessment: 21:40 General: Appears in no apparent distress. well groomed, well developed, well nourished, sg Behavior is calm, cooperative, appropriate for age. Pain: Denies pain. Neuro: Level of Consciousness is awake, alert, obeys commands, Oriented to person, place, time, Speech is normal, Facial symmetry appears normal. Cardiovascular: Patient's skin is warm and dry. Chest pain is denied. Respiratory: Airway is patent Respiratory effort is even, unlabored, Respiratory pattern is regular, symmetrical, Denies cough, shortness of breath labored breathing. GI: No signs and/or symptoms were reported involving the gastrointestinal system. : No signs and/or symptoms were reported regarding the genitourinary system. Derm: Skin is pink, warm \T\ dry. Musculoskeletal: Circulation, motion, and sensation intact. Injury Description: Abrasion sustained to left elbow was sustained 30-60 minutes ago. Historical: - Allergies: 21:56 No Known Allergies; sg - PMHx: 21:56 Cataracts; sg - PSHx: 21:56 kidney stone; sg - Immunization history:: Adult Immunizations unknown, Last tetanus immunization: unknown. - Social history:: Smoking status: Patient/guardian denies using tobacco. - Ebola Screening: : Patient negative for fever greater than or equal to 101.5 degrees Fahrenheit, and additional compatible Ebola Virus Disease symptoms Patient denies exposure to infectious person Patient denies travel to an Ebola-affected area in the 21 days before illness onset No symptoms or risks identified at this time. Assessment: 22:40 Reassessment: Patient appears in no apparent distress at this time. Patient and/or sg family updated on plan of care and expected duration. Pain level reassessed. Patient is alert, oriented x 3, equal unlabored respirations, skin warm/dry/pink. Patient states feeling better. Vital Signs: 21:49 BP 146 / 65; Pulse 55; Resp 18; Temp 97.2; Pulse Ox 97% on R/A; sg 22:40 BP 142 / 60; Pulse 55; Resp 17; Temp 97.6; Pulse Ox 98% on R/A; sg ED Course: 21:30 Patient arrived in ED. cf2 21:40 Patient has correct armband on for positive identification. Placed in gown. Bed in low sg position. Call light in reach. Pulse ox on. NIBP on. Warm blanket given. Head of bed elevated. 21:41 Feli Tovar, LILA is Primary Nurse. iw 21:57 Arm band placed on. sg 21:58 Triage completed. sg 22:10 Hung Walters PA is PHCP. cp 22:10 Garett Maurer MD is Attending Physician. cp 22:25 No provider procedures requiring assistance completed. Patient did not have IV access sg during this emergency room visit. Dressings: non-adherent dressing x 1 left elbow 4X4s X 1; left elbow. Wound care: to abrasion, located on left elbow was cleaned with Hibiclens, dressed with Neosporin, coban, Patient tolerated well. 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 Exp: 05/16/2021. Lot #: [id number]. } Route: IM; Site: left deltoid; Outcome: 22:25 Discharge ordered by . cp 22:40 Discharged to home ambulatory, with family. sg 22:40 Condition: good 22:40 Discharge instructions given to patient, family, Instructed on discharge instructions, follow up and referral plans. medication usage, safety practices, wound care, Demonstrated understanding of instructions, follow-up care, wound care. 22:42 Patient left the ED. dm5 Signatures: Jasmin De Souza RN RN dm5 Seth Nesbitt RN RN sg Williams, Irene, RN RN iw Page, Corey, PA PA cp Frazier, [facility]
--- NOTE | 2019-05-04 22:26 | EDPHYS ---
Physician Documentation [facility] Name: Zelalem Mendiola Age: 73 yrs Sex: Male : 1945 Arrival Date: 05/04/2019 Time: 21:30 Bed 17 Private MD: ED Physician Garett Maurer HPI: 05/04 22:18 This 73 yrs old Male presents to ER via Ambulatory with complaints of Fall cp Injury, Laceration To Arm. 22:18 The patient or guardian complains of a laceration, irregular. The complaints affect the cp left lateral elbow. Context: The problem was sustained at home, resulted from a fall, against toolbox . Onset: The symptoms/episode began/occurred today. Treatment prior to arrival includes: no previous treatment. Associated signs and symptoms: Pertinent positives: decreased range of motion, pain, heavy bleeding. Historical: - Allergies: 21:56 No Known Allergies; sg - PMHx: 21:56 Cataracts; sg - PSHx: 21:56 kidney stone; sg - Immunization history:: Adult Immunizations unknown, Last tetanus immunization: unknown. - Social history:: Smoking status: Patient/guardian denies using tobacco. - Ebola Screening: : Patient negative for fever greater than or equal to 101.5 degrees Fahrenheit, and additional compatible Ebola Virus Disease symptoms Patient denies exposure to infectious person Patient denies travel to an Ebola-affected area in the 21 days before illness onset No symptoms or risks identified at this time. ROS: 22:20 Constitutional: Negative for fever. cp 22:20 MS/extremity: Negative for decreased range of motion, deformity, pain, paresthesias. 22:20 Skin: Positive for laceration(s), of the left lateral elbow. 22:20 All other systems are negative. Exam: 22:20 Head/Face: Normocephalic, atraumatic. cp 22:20 Constitutional: The patient appears in no acute distress, alert, awake, comfortable, non-toxic, well developed, well nourished. 22:20 Skin: injury, that can be described as no foreign body, irregular, with mild bleeding, skin tear lateral aspect left elbow. Vital Signs: 21:49 BP 146 / 65; Pulse 55; Resp 18; Temp 97.2; Pulse Ox 97% on R/A; sg 22:40 BP 142 / 60; Pulse 55; Resp 17; Temp 97.6; Pulse Ox 98% on R/A; sg MDM: 22:13 Patient medically screened. cp 22:23 Data reviewed: vital signs, nurses notes, and as a result, I will discharge patient. cp Counseling: I had a detailed discussion with the patient and/or guardian regarding: the historical points, exam findings, and any diagnostic results supporting the discharge/admit diagnosis, to return to the emergency department if symptoms worsen or persist or if there are any questions or concerns that arise at home. 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 Exp: 05/16/2021. Lot #: [id number]. } Route: IM; Site: left deltoid; Disposition: 22:45 Chart complete. cp 05/05 07:00 Co-signature as Attending Physician, Garett Maurer MD Available for consultation at ps1 all times. Signing chart for administrative purposes. Not an endorsement of care. . Disposition: 05/04/19 22:25 Discharged to Home. Impression: Laceration without foreign body of left elbow - skin tear. - Condition is Stable. - Discharge Instructions: Skin Tear Care. - Medication Reconciliation Form, Thank You Letter, Antibiotic Education, Prescription Opioid Use form. - Follow up: Private Physician; When: 2 - 3 days; Reason: Wound Recheck. - Problem is new. - Symptoms have improved. Signatures: Jasmin De Souza RN RN dm5 Seth Nesbitt RN RN sg Hung Walters PA PA cp Singer, Phillip, MD MD ps1 Corrections: (The following items were deleted from the chart) 05/04 22:42 22:25 05/04/2019 22:25 Discharged to Home. Impression: Laceration without foreign body dm5 of left elbow - skin tear. Condition is Stable. Forms are Medication Reconciliation Form, Thank You Letter, Antibiotic Education, Prescription Opioid Use. Follow up: Private Physician; When: 2 - 3 days; Reason: Wound Recheck. Problem is new. Symptoms have improved. cp
[2019-05-04] MEDS ORDERED: TETANUS & DIPHTHERIA TOX,ADULT 0.5 ML VIAL ONE (22:38)
[2019-05-04 22:48] VITALS: BP 146/65; TEMP 97.2; O2SAT 97
== END 2019-05-04 22:42 | disposition home or self-care (01) ==
LOC: ER 21:29
DX: S51.012A Laceration without foreign body of left elbow, initial encounter (principal); W18.30XA Fall on same level, unspecified, initial encounter; Y93.89 Activity, other specified; Z23 Encounter for immunization
CPT/HCPCS: 90471; 90714; 99284

== ENCOUNTER 2019-06-15 15:50 | Emergency (ER) | payer OTHER ==
--- OUTSIDE RECORDS SUMMARY | 2019-06-15 15:52 | XMS REPORT ---
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 37880472083 20 MG Orally Sept 18, Active 1 tablet Once a day 2018 in evening (for high cholestero l) Ultram [facility] 46753986738 50 MG Orally Active 1 tab as daily needed for severe pain Donepezil HCl [facility] 21413604252 5 MG Orally Mar 21, Active 1 tablet Once a day for 2019 at bedtime dementia Atorvastatin [facility] 83737773689 40 MG Orally Active 1 tablet Calcium Once a day Metoprolol [facility] 57639737717 25 MG Orally Active 1 tablet Tartrate Twice a day with food Advair Diskus [facility] 98603543978 250-50 MCG/DOSE Active 1 puff Inhalation Twice a day Krill Oil [facility] 80146485600 1000 MG Orally Active 1 capsule Twice daily ProAir HFA [facility] 37726849270 108 (90 Base) Active 2 puffs as MCG/ACT needed Inhalation every 6 hrs Aspirin [address] [facility] 52964950552 81 MG Orally Active 1 tablet Once a day Lipitor [facility] 54892058557 10 MG Orally Active 1 tablet Once a day Furosemide [facility] 69646330860 20 MG Orally Active 1 tablet Once a day Results No Known Results Summary Purpose eClinicalWorks Submission
--- OUTSIDE RECORDS SUMMARY | 2019-06-15 15:53 | XMS REPORT ---
:1945 Author Organization eClinicalWorks Care Team Providers Name Role Phone Ashley Rizzo Provider Role Unavailable Allergies, Adverse Reactions, Alerts Substance Reaction Event Type N.K.D.A. 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 Problem Reduced vision H54.7 Active Problem Systolic congestive heart failure, I50.20 Active unspecified HF chronicity Problem Chronic diarrhea K52.9 Active Problem Blurry vision H53.8 Active Problem Acute systolic congestive heart I50.21 Active failure Problem Dementia without behavioral F03.90 Active disturbance, unspecified dementia type Problem Prostate disorder N42.9 Active Problem Hyperlipemia E78.5 Active Problem Presence of intraocular lens Z96.1 Active Problem Hyperlipidemia, unspecified E78.5 Active hyperlipidemia type Problem Chronic kidney disease, unspecified N18.9 Active CKD stage Problem Pain in left knee M25.562 Active Assessment 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 Problem Vitamin D deficiency E55.9 Active Problem Pain in right knee M25.561 Active Assessment Dementia without behavioral F03.90 Active disturbance, unspecified dementia type Problem History of kidney stones Z87.442 Active Problem Other chronic pain G89.29 Active Medications Medication Code Code Instructions Start End Status Dosage System Date Date Advair Diskus [facility] 17510410063 250-50 MCG/DOSE Active 1 puff Inhalation Twice a day Furosemide ND 99020882745 20 MG Orally Active 1 tablet Once a day Aspirin 81 ND 68173347636 81 MG Orally Oct , Active 1 tablet Once a day 2019 Crestor [facility] 82984270156 20 MG Orally Active 1 tablet Once a day in evening (for high cholestero l) Donepezil HCl [facility] 32981448060 5 MG Orally Active 1 tablet Once a day for at bedtime dementia Folic Acid [facility] 42384045578 1 MG Orally Jun 04, Feb 28, Active 1 tablet Once a day 2019 2019 Metoprolol [facility] 19132558394 25 MG Orally Active 1 tablet Tartrate Twice a day with food Lipitor [facility] 10460051686 10 MG Orally Active 1 tablet Once a day Ultram [facility] 64569293234 50 MG Orally Active 1 tab as daily needed for severe pain Krill Oil [facility] 74974357273 1000 MG Orally Active (otc) 1 Twice daily capsule Clopidogrel [facility] 46947649298 75 MG Orally Active 1 tablet Bisulfate Once a day Lisinopril [facility] 45777263318 10 MG Orally Active 1 tablet Once a day Atorvastatin [facility] 55505968123 40 MG Orally Active 1 tablet Calcium Once a day ProAir HFA [facility] 21760102853 108 (90 Base) Active 2 puffs as MCG/ACT needed Inhalation every 6 hrs Results No Known Results Summary Purpose eClinicalWorks Submission
--- OUTSIDE RECORDS SUMMARY | 2019-06-15 15:53 | XMS REPORT ---
:1945 Author Organization eClinicalWorks Care Team Providers Name Role Phone Ashley Rizzo Provider Role Unavailable Allergies, Adverse Reactions, Alerts Substance Reaction Event Type N.K.D.A. Info Not Available Non Drug Allergy Problems Problem Type Condition Code Onset Dates Condition Status Assessment Right leg paresthesias R20.2 Active Assessment Pain in left knee M25.562 Active Assessment Pain in right knee M25.561 Active Assessment Dementia without behavioral F03.90 Active disturbance, unspecified dementia type Assessment Vitamin D deficiency E55.9 Active Assessment Chronic kidney disease, unspecified N18.9 Active CKD stage Assessment Systolic congestive heart failure, I50.20 Active unspecified HF chronicity Assessment History of placement of stent in Z95.5 Active [place] coronary artery Problem Pain in right knee M25.561 Active Assessment Coronary artery disease involving I25.119 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 Problem Other chronic pain G89.29 Active Assessment Mixed hyperlipidemia E78.2 Active Problem Elevated blood pressure reading R03.0 Active without diagnosis of hypertension Problem Mixed hyperlipidemia E78.2 Active Problem Right leg paresthesias R20.2 Active Problem History of placement of stent in Z95.5 Active [place] coronary artery Problem Coronary artery disease involving I25.119 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 Problem Cataract extraction status, Z98.49 Active unspecified eye Problem Reduced vision H54.7 Active Problem Systolic [...] Problem Pain in left knee M25.562 Active Problem Vitamin D deficiency E55.9 Active Problem History of kidney stones Z87.442 Active Medications Medication Code Code Instructions Start End Status Dosage System Date Date Atorvastatin [facility] 40332061311 40 MG Orally Active 1 tablet Calcium Once a day Furosemide [facility] 40463239618 20 MG Orally Active 1 tablet Once a day Donepezil HCl [facility] 29310086980 5 MG Orally Active 1 tablet Once a day for at bedtime dementia Crestor [facility] 81459036568 20 MG Orally Active 1 tablet Once a day in evening (for high cholestero l) Advair Diskus [facility] 83870765241 250-50 MCG/DOSE Active 1 puff Inhalation Twice a day Metoprolol [facility] 95870581422 25 MG Orally Active 1 tablet Tartrate Twice a day with food Lisinopril [facility] 02562413479 10 MG Orally Active 1 tablet Once a day Ultram [facility] 30619591108 50 MG Orally Active 1 tab as daily needed for severe pain Lipitor [facility] 11205460929 10 MG Orally Active 1 tablet Once a day Krill Oil [facility] 57714849320 1000 MG Orally Active (otc) 1 Twice daily capsule Aspirin 81 [facility] 97724662309 81 MG Orally Active 1 tablet Once a day ProAir HFA [facility] 13234961334 108 (90 Base) Active 2 puffs as MCG/ACT needed Inhalation every 6 hrs Clopidogrel [facility] 32333305589 75 MG Orally Active 1 tablet Bisulfate Once a day Results No Known Results Summary Purpose eClinicalWorks Submission
--- NOTE | 2019-06-15 16:26 | ER ---
Nurse's Notes [facility] Name: Zelalem Mendiola Age: 73 yrs Sex: Male : 1945 Arrival Date: 06/15/2019 Time: 15:53 Bed 8 Private MD: Ashley Rizzo Diagnosis: Cellulitis and acute lymphangitis of trunk-small;Dementia in other diseases classified elsewhere Presentation: 06/15 15:57 Presenting complaint: Patient states: Abscess to left axilla that they noticed today. aj1 Transition of care: patient was not received from another setting of care. Onset of symptoms was June 15, 2019. Risk Assessment: Do you want to hurt yourself or someone else? Patient reports no desire to harm self or others. Initial Sepsis Screen: Does the patient meet any 2 criteria? No. Patient's initial sepsis screen is negative. Does the patient have a suspected source of infection? Yes: Skin breakdown/wound. Care prior to arrival: None. 15:57 Method Of Arrival: Ambulatory aj 15:57 Acuity: PADMAJA 4 aj1 Triage Assessment: 16:02 General: Appears in no apparent distress. comfortable, Behavior is calm, cooperative, aj1 appropriate for age. Pain: Denies pain. Neuro: Level of Consciousness is awake, alert, obeys commands. Cardiovascular: Patient's skin is warm and dry. Respiratory: Airway is patent Respiratory effort is even, unlabored, Respiratory pattern is regular, symmetrical. Historical: - Allergies: 16:02 NKDA; aj1 - PMHx: 16:02 Cataracts; Dementia; Hypertension; Hyperlipidemia; Myocardial infarction; cardiac stent;aj1 - Immunization history:: Flu vaccine is up to date. - Coronavirus screen:: The patient has NOT traveled to [place] in the past 14 days. - Social history:: Smoking status: Patient reports the use of cigarette tobacco products, smokes one-half pack cigarettes per day. - Family history:: not pertinent. - Ebola Screening: : Patient denies travel to an Ebola-affected area in the 21 days before illness onset. Screenin:21 Abuse screen: Denies threats or abuse. Nutritional screening: No deficits noted. em Tuberculosis screening: No symptoms or risk factors identified. Fall Risk None identified. Assessment: 16:20 General: Appears in no apparent distress. comfortable, Behavior is calm, cooperative, em appropriate for age, Denies fever. Pain: Complains of pain in left breast Pain currently is 0 out of 10 on a pain scale. Pain began 1 day ago. Neuro: Level of Consciousness is awake, alert, obeys commands, Oriented to person, place, time, situation, Appropriate for age. Cardiovascular: Capillary refill < 3 seconds Patient's skin is warm and dry. Respiratory: Airway is patent Respiratory effort is even, unlabored, Respiratory pattern is regular, symmetrical. Derm: Skin is intact, is healthy with good turgor, Skin is pink, warm \T\ dry. redness noted to left underarm Wound noted. Vital Signs: 16:02 BP 116 / 86; Pulse 61; Resp 18; Temp 97.9(O); Pulse Ox 97% ; Weight 77.11 kg (R); aj1 Height 5 ft. 9 in. (175.26 cm) (R); Pain 0/10; 16:02 Body Mass Index 25.10 (77.11 kg, 175.26 cm) aj ED Course: 15:53 Patient arrived in ED. rg4 15:53 Ashley Rizzo MD is Private Physician. 4 16:00 Triage completed. aj1 16:02 Arm band placed on Patient placed in an exam room. aj 16:05 Hung Staley MD is Attending Physician. [facility] 16:08 Osiel De Los Santos, LILA is Primary Nurse. em 16:21 Patient has correct armband on for positive identification. Call light in reach. Side em rails up X2. Adult w/ patient. 16:23 Ashley Rizzo MD is Referral Physician. [facility] 16:36 No provider procedures requiring assistance completed. Patient did not have IV access em during this emergency room visit. Administered Medications: 16:30 Drug: Bactrim (160 mg-800 mg (DS) 1 tablet Route: PO; em 16:41 Follow up: Response: No adverse reaction em 16:30 Drug: Doxycycline 100 mg Route: PO; em 16:41 Follow up: Response: No adverse reaction em Outcome: 16:23 Discharge ordered by . shawna 16:40 Discharged to home ambulatory, with family. em 16:40 Condition: good 16:40 Discharge instructions given to patient, family, Instructed on discharge instructions, follow up and referral plans. medication usage, Demonstrated understanding of instructions, follow-up care, medications, Prescriptions given X 2. 16:41 Patient left the ED. em Signatures: Ania Vasques RN RN [email or web address] Hung Staley MD MD cha Munoz, Edgar, RN RN em Garcia, Rubi 4
--- NOTE | 2019-06-15 16:26 | EDPHYS ---
[facility] Name: Zelalem Mendiola Age: 73 yrs Sex: Male : 1945 Arrival Date: 06/15/2019 Time: 15:53 Bed 8 Private MD: Ashley Rizzo ED Physician Hung Staley HPI: 06/15 16:18 This 73 yrs old Male presents to ER via Ambulatory with complaints of Rash. shawna 16:19 the patient presents with a swollen area of the left breast. Description: The affected shawna area is small, confluent, erythematous, swollen. Onset: The symptoms/episode began/occurred 3 day(s) ago. Possible cause(s): unknown. Associated signs and symptoms: The patient has no apparent associated signs or symptoms. Modifying factors: the symptoms are alleviated by nothing, the symptoms are aggravated by nothing. Severity of symptoms: At their worst the symptoms were mild. The patient has not experienced similar symptoms in the past. Historical: - Allergies: 16:02 NKDA; aj1 - PMHx: 16:02 Cataracts; Dementia; Hypertension; Hyperlipidemia; Myocardial infarction; cardiac stent;aj1 - Immunization history:: Flu vaccine is up to date. - Coronavirus screen:: The patient has NOT traveled to [place] in the past 14 days. - Social history:: Smoking status: Patient reports the use of cigarette tobacco products, smokes one-half pack cigarettes per day. - Family history:: not pertinent. - Ebola Screening: : Patient denies travel to an Ebola-affected area in the 21 days before illness onset. ROS: 16:19 Constitutional: Negative for fever, chills, and weight loss, Eyes: Negative for injury, shawna pain, redness, and discharge, ENT: Negative for injury, pain, and discharge, Neck: Negative for injury, pain, and swelling, Cardiovascular: Negative for chest pain, palpitations, and edema, Respiratory: Negative for shortness of breath, cough, wheezing, and pleuritic chest pain, Back: Negative for injury and pain, : Negative for injury, bleeding, discharge, and swelling, MS/Extremity: Negative for injury and deformity, Skin: Negative for injury, rash, and discoloration, Neuro: Negative for headache, weakness, numbness, tingling, and seizure, Psych: Negative for depression, anxiety, suicide ideation, homicidal ideation, and hallucinations, Allergy/Immunology: Negative for hives, rash, and allergies, Endocrine: Negative for neck swelling, polydipsia, polyuria, polyphagia, and marked weight changes, Hematologic/Lymphatic: Negative for swollen nodes, abnormal bleeding, and unusual bruising. 16:19 Abdomen/GI: 16:19 Skin: Positive for erythema, swelling, of the chest. Exam: 16:20 Constitutional: This is a well developed, well nourished patient who is awake, alert, shawna and in no acute distress. Head/Face: Normocephalic, atraumatic. Eyes: Pupils equal round and reactive to light, extra-ocular motions intact. Lids and lashes normal. Conjunctiva and sclera are non-icteric and not injected. Cornea within normal limits. Periorbital areas with no swelling, redness, or edema. ENT: Nares patent. No nasal discharge, no septal abnormalities noted. Tympanic membranes are normal and external auditory canals are clear. Oropharynx with no redness, swelling, or masses, exudates, or evidence of obstruction, uvula midline. Mucous membranes moist. Neck: Trachea midline, no thyromegaly or masses palpated, and no cervical lymphadenopathy. Supple, full range of motion without nuchal rigidity, or vertebral point tenderness. No Meningismus. Chest/axilla: Normal chest wall appearance and motion. Nontender with no deformity. No lesions are appreciated. Cardiovascular: Regular rate and rhythm with a normal S1 and S2. No gallops, murmurs, or rubs. Normal PMI, no JVD. No pulse deficits. Respiratory: Lungs have equal breath sounds bilaterally, clear to auscultation and percussion. No rales, rhonchi or wheezes noted. No increased work of breathing, no retractions or nasal flaring. Abdomen/GI: Soft, non-tender, with normal bowel sounds. No distension or tympany. No guarding or rebound. No evidence of tenderness throughout. Back: No spinal tenderness. No costovertebral tenderness. Full range of motion. MS/ Extremity: Pulses equal, no cyanosis. Neurovascular intact. Full, normal range of motion. Neuro: Awake and alert, GCS 15, oriented to person, place, time, and situation. Cranial nerves II-XII grossly intact. Motor strength 5/5 in all extremities. Sensory grossly intact. Cerebellar exam normal. Normal gait. Psych: Awake, alert, with orientation to person, place and time. Behavior, mood, and affect are within normal limits. 16:20 Skin: Appearance: Color: erythematous, Temperature: warm, Moisture: normal moisture, petechiae, not noted, ecchymosis, diaphoresis is not appreciated, cellulitis, that is mild, induration, that is mild is noted. Vital Signs: 16:02 BP 116 / 86; Pulse 61; Resp 18; Temp 97.9(O); Pulse Ox 97% ; Weight 77.11 kg (R); aj1 Height 5 ft. 9 in. (175.26 cm) (R); Pain 0/10; 16:02 Body Mass Index 25.10 (77.11 kg, 175.26 cm) aj1 MDM: 16:05 Patient medically screened. shawna Administered Medications: 16:30 Drug: Bactrim (160 mg-800 mg (DS) 1 tablet Route: PO; em 16:41 Follow up: Response: No adverse reaction em 16:30 Drug: Doxycycline 100 mg Route: PO; em 16:41 Follow up: Response: No adverse reaction em Disposition: 06/15/19 16:23 Discharged to Home. Impression: Cellulitis and acute lymphangitis of trunk - small, Dementia in other diseases classified elsewhere. - Condition is Stable. - Discharge Instructions: Cellulitis, Adult, Cellulitis, Adult, [id number]. - Prescriptions for Doxycycline Hyclate 100 mg Oral Tablet - take 1 tablet by ORAL route every 12 hours; 20 tablet. Bactrim DS 800- 160 mg Oral Tablet - take 1 tablet by ORAL route every 12 hours for 10 days; 20 tablet. - Medication Reconciliation Form, Thank You Letter, Antibiotic Education, Prescription Opioid Use form. - Follow up: Ashley Rizzo MD; When: 2 - 3 days; Reason: Recheck today's complaints, Continuance of care, Re-evaluation by your physician. - Problem is new. - Symptoms have improved. Signatures: Ania Vasques RN RN aj1 Hung Staley MD MD cha Munoz, Edgar, RN RN em Corrections: (The following items were deleted from the chart) 16:24 16:23 06/15/2019 16:23 Discharged to Home. Impression: Cellulitis and acute shawna lymphangitis of trunk - small. Condition is Stable. Forms are Medication Reconciliation Form, Thank You Letter, Antibiotic Education, Prescription Opioid Use. Follow up: Ashley Rizzo; When: 2 - 3 days; Reason: Recheck today's complaints, Continuance of care, Re-evaluation by your physician. Problem is new. Symptoms have improved. shawna 16:41 16:24 06/15/2019 16:23 Discharged to Home. Impression: Cellulitis and acute em lymphangitis of trunk - small; Dementia in other diseases classified elsewhere. Condition is Stable. Forms are Medication Reconciliation Form, Thank You Letter, Antibiotic Education, Prescription Opioid Use. Follow up: Ashley Rizzo; When: 2 - 3 days; Reason: Recheck today's complaints, Continuance of care, Re-evaluation by your physician. Problem is new. Symptoms have improved. shawna
[2019-06-15] MEDS ORDERED: DOXYCYCLINE 100 MG CAP PO ONE (16:34)
[2019-06-15] MEDS ORDERED: SMZ./TMP. 800/160 MG TABLET ONE (16:34)
[2019-06-15 16:47] VITALS: BP 116/86; TEMP 97.9; O2SAT 97
== END 2019-06-15 16:41 | disposition home or self-care (01) ==
LOC: ER 15:50
DX: L03.319 Cellulitis of trunk, unspecified (principal); I89.1 Lymphangitis; F03.90 Unspecified dementia, unspecified severity, without behavioral disturbance, psychotic disturbance, mood disturbance, and anxiety; F17.210 Nicotine dependence, cigarettes, uncomplicated
CPT/HCPCS: 99283

== ENCOUNTER 2019-11-11 09:02 | Day surgery (SDC) | payer OTHER ==
[2019-11-11 09:39] LABS: MPV 8.9 fL (7.6-11.3)
[2019-11-11 09:43] LABS: Protime INR 0.93
[2019-11-11 09:51] VITALS: BMI 27.3
[2019-11-11 10:16] LABS: Platelet Estimate ADEQ
--- OUTSIDE RECORDS SUMMARY | 2019-11-11 10:39 | XMS REPORT ---
:1945 Author Organization [employer] Care Team Providers Name Role Phone Ashley Rizzo Provider Role Unavailable Allergies No Known Allergies Problems Problem Type Condition Code Onset Dates Condition Statu s Problem Mixed hyperlipidemia E78.2 Active Problem Chronic diarrhea K52.9 Active Problem Blurry vision H53.8 Active Problem Non-intractable vomiting with R11.2 Active nausea, unspecified vomiting type Problem Hyperlipidemia, unspecified E78.5 Active hyperlipidemia type Problem Systolic congestive heart failure, I50.20 Active unspecified HF chronicity Problem Presence of intraocular lens Z96.1 Active Problem Cataract extraction status, Z98.49 Active unspecified eye Problem Cellulitis of chest wall L03.313 Act meredith Problem Acute systolic congestive heart I50.21 Active failure Problem Dementia without behavioral F03.90 Active disturbance, unspecified dementia type Problem History of placement of stent in Z95.5 Active LAD coronary artery Problem Coronary artery disease involving I25.119 Active inupiat coronary artery of inupiat heart with angina pectoris Problem Prostate disorder N42.9 Active Problem Chronic kidney disease, unspecified N18.9 Active CKD stage Problem Hyperlipemia E78.5 Active Problem Vitamin D deficiency E55.9 Active Problem Other chronic pain G89.29 Active Problem Pain in left knee M25.562 Active Problem History of kidney stones Z87.442 Act meredith Problem Elevated blood pressure reading R03.0 Active without diagnosis of hypertension Problem Reduced vision H54.7 Active Problem Pain in right knee M25.561 Active Problem Right leg paresthesias R20.2 Activ e Medications No Known Medications Results No Known Results Summary Purpose eClinicalWorks Submission
--- OUTSIDE RECORDS SUMMARY | 2019-11-11 10:39 | XMS REPORT | Clinical Summary ---
:1945 Author Organization [facility] Address [address] [place] [address] Care Team Providers Name Role Phone Asked, Pcp Primary Care Provider Unavailable Allergies No Known Allergies Medications Not on file Active Problems Not on file Social History Tobacco Use Types Packs/Day Years Used Date Current Some Day Smoker Alcohol Use Drinks/Week oz/Week Comments Yes Sex Assigned at Date Recorded Not on file Job Start Date Occupation Industry Not on file Not on file Not on file Travel History Travel Start Travel End No recent travel history available. 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
--- OUTSIDE RECORDS SUMMARY | 2019-11-11 10:39 | XMS REPORT | Continuity of Care Document ---
:1945 [address] [facility] [place] [place] Address [address] [place] [address] Care Team Providers Name Role Phone Asked, No Pcp Primary Care Physician Unavailable Problems Condition Condition Condition Status Onset Resolution Last Treating Co mments Source Name Details Category Date Date Treatment Clinician Date Dementia Dementia Problem [facility] moria disturbanc disturbanc l e, e, Outpati unspecifie unspecifie en t d dementia d dementia Cl inics type type Pain in Pain in Problem Active [facility] left knee left knee [facility] Acute Acute Problem Active [facility] systolic systolic [facility] - congestive congestive Me moria heart heart l failure failure Outpati ent Clinics Pain in Pain in Problem Active [facility] right knee right knee [facility] [facility] History of History of Problem Active [facility] placement placement [facility] - of stent of stent Memori a in LAD in LAD l coronary coronary Outpat i artery artery ent Clinics Other Other Problem Active [facility] chronic chronic [facility] pain pain [facility] Right leg Right leg Problem Active [facility] paresthesi paresthesi [place] [facility] - as as [facility] ent Clin[facility] Elevated Elevated Problem [facility] blood blood [facility] pressure pressure Mem[facility] a reading reading l without without Outpati diagnosis diagnosis ent of of Clinics hypertensi hypertensi on on Coronary Coronary Problem [facility] artery artery [facility] disease disease [facility] involving involving l [place] Outpati coronary coronary ent artery of artery of Clin ics [place] heart with heart with angina angina pectoris pectoris Reduced Reduced Problem Active [facility] vision vision [facility] Blurry Blurry Problem Active [facility] vision vision [facility] Mixed Mixed Problem Active [facility] hyperlipid hyperlipid [facility] [facility] - emia emia Memoria l [facility] Chronic Chronic Problem Active [facility] diarrhea diarrhea [facility] Hyperlipid Hyperlipid Problem Active [facility] emia, emia, [facility] - unspecifie unspecifie Me moria d d l hyperlipid hyperlipid Ou tpati emia type emia type ent Clinics Prostate Prostate Problem Active [facility] disorder disorder [facility] Cataract Cataract Problem [facility] extraction extraction [place] [facility] - status, status, Memoria unspecifie unspecifie l d eye d eye [facility] Presence Presence Problem Active [facility] of of [facility] - intraocula intraocula Me moria r lens r lens l [facility] History of History of Problem Active [facility] kidney kidney [facility] - stones stones [facility] l [facility] Chronic Chronic Problem Active [facility] kidney kidney [facility] - disease, disease, Memori a unspecifie unspecifie l d CKD d CKD [facility] stage stage ent Clinics Vitamin D Vitamin D Problem Active [facility] deficiency deficiency [place] [facility] - Memoria l [facility] ent Clinics Systolic Systolic Problem Active [facility] congestive congestive [place] - heart heart Memoria failure, failure, l unspecifie unspecifie Ou tpati d HF d HF ent chronicity chronicity Cl inics Non-intrac Non-intrac Problem Active [facility] table table [facility] - vomiting vomiting Memori a with with l nausea, nausea, Outpati unspecifie unspecifie en t d vomiting d vomiting Cl inics type type Cellulitis Cellulitis Problem Active [facility] of chest of chest [facility] - wall wall [facility] l [facility] Frequent Frequent Problem Active [facility] [place] [facility] ent Clinics Essential Essential Problem Active [facility] hypertensi hypertensi [place] - on on Memoria l [facility] ent Clinics Preoperati Preoperati Diagnosis Active [facility] ve ve [facility] - clearance clearance Juanpablo jos l [facility] Allergies, Adverse Reactions, Alerts This patient has no known allergies or adverse reactions. Social History Social Habit Start Date Stop Date Quantity Comments Source Sex Assigned At [facility] ethodist Alcohol intake 2018-06-20 2018-06-20 Current drinker [facility] 00:00:00 00:00:00 of alcohol (finding) Smoking Status Start Date Stop Date Source Current some day smoker 2018-06-20 00:00:00 [place] [facility] Medications Ordered Filled Start Stop Current Ordering Indication Dosage Frequency Signature Comments Components Source Medication Medication Date Date Medication? Clinician (SIG) Name Name Karma Parada Yes Ashley [address] [facility] 2-28 [place] as needed [facility] - 00:00: for Memoria 00 nausea/vom l iting Outpati ent Clinics Folic Acid Folic Acid No Ashley [address] [facility] 2-04 10-31 [place] [facility] - 00:00: 00:00 [facility] 00 :00 l Outpati ent Clinics Donepezil Donepezil 2018-05 Yes Ashley [address] [facility] HCl HCl 1-21 [place] at bedtime [facility] - 00:00: Memoria 00 l Outpati ent Clinics Crestor Crestor Yes Ashley [address] 9-18 [place] in evening Luke s - 00:00: (for high Memoria 00 cholestero l l) Outpati ent Clinics Lisinopril Lisinopril Yes Ashley [address] [facility] [place] [facility] Clopidogrel Clopidogrel Yes Ashley [address] [facility] Bisulfate Bisulfate [place] [facility] Ultram Ultram Yes Ashley [address] [facility] [place] needed for Luke s - severe Memoria pain l Outpati ent Clinics Atorvastati Atorvastati Yes Ashley [address] [facility] n Calcium n Calcium [place] [facility] Metoprolol Metoprolol Yes Ashley [address] [facility] Tartrate Tartrate [place] with food [facility] Advair Advair Yes Ashley [address] [facility] Diskus Diskus [place] [facility] Krill Oil Krill Oil Yes Ashley (otc) [address] [place] capsule [facility] ProAir HFA ProAir HFA Yes Ashley [address] [facility] [place] needed [facility] Lipitor Lipitor Yes Ashley [address] [facility] [place] [facility] Furosemide Furosemide Yes Ashley [address] [facility] [place] [facility] Sulfamethox Sulfamethox Yes Ashley TAKE [address] [facility] azole-Trime azole-Trime [place] TABLET BY [facility] - thoprim thoprim MOUTH Memoria EVERY 12 l HOURS FOR Outpati 10 DAYS ent Clinics Doxycycline Doxycycline Yes Ashley TAKE [address] [facility] Hyclate Hyclate [place] CAPSULE BY [facility] - MOUTH Memoria EVERY 12 l HOURS Outpati ent Clinics Aspirin 81 Aspirin 81 2019- No Ashley [address] [facility] 10-31 [place] [facility] - 00:00 Memoria :00 l Outpati ent Clinics Procedures This patient has no known procedures. Plan of Care Planned Activity Planned Date Details Comments Source Future Scheduled 2019-11-30 INFLUENZA VACCINE [place] [facility] 00:00:00 [code = INFLUENZA VACCINE] Future Scheduled 2012-12-28 65+ PNEUMOCOCCAL [facility] 00:00:00 VACCINE (1 of 2 - PCV13) [code = 65+ PNEUMOCOCCAL VACCINE (1 of 2 - PCV13)] Future Scheduled 1997-12-28 COLONOSCOPY SCREENING [facility] 00:00:00 [code = COLONOSCOPY SCREENING] Future Scheduled 1997-12-28 SHINGLES VACCINES (#1) [place] [facility] 00:00:00 [code = SHINGLES VACCINES (#1)] Encounters Start End Encounter Admission Attending Care Care Encounter Source Date/Time Date/Time Type Type Clinicians Facility Department ID 2019-10-29 2019-10-29 Outpatient Mary Ann Garcia [id number] [facility] 14:45:00 14:45:00 [facility] Medicine Medicine Outpati ent Clinics 2019-08-20 2019-08-20 Outpatient Mary Ann Reeset [id number] [facility] 22:48:00 22:48:00 [facility] Medicine l Medicine Outpati ent Clinics 2019-08-20 2019-08-20 Outpatient Mary Ann Reeset [id number] [facility] 13:00:00 13:00:00 [facility] Medicine Medicine Outpati ent Clinics 2019-08-13 2019-08-13 Outpatient Mary Ann Reeset [id number] [facility] 15:02:00 15:02:00 [facility] Medicine Outpati ent Clinics 2019-06-28 2019-06-28 [facility] [id number] [facility] 14:00:00 14:00:00 [facility] Medicine Outpati ent Clinics 2019-06-04 2019-06-04 [facility] [id number] 10:30:00 10:30:00 [facility] Medicine Outpati ent Clinics 2019-05-21 2019-05-21 [facility] [id number] [facility] 14:30:00 14:30:00 [facility] Outpati ent Clinics 2019-03-20 2019-03-20 [facility] [id number] 14[facility]00:00 14:00:00 [facility] Outpati ent Clinics Results This patient has no known results.
--- OUTSIDE RECORDS SUMMARY | 2019-11-11 10:39 | XMS REPORT ---
:1945 Author Organization eClinicalWorks Care Team Providers Name Role Phone Ashley Rizzo Provider Role Unavailable Allergies, Adverse Reactions, Alerts Substance Reaction Event Type N.K.D.A. Info Not Available Non Drug Allergy Problems Problem Type Condition Code Onset Dates Condition Statu s Assessment Systolic congestive heart failure, I50.20 Active unspecified HF chronicity Assessment Chronic kidney disease, unspecified N18.9 Active CKD stage Assessment Coronary artery disease involving I25.119 Active [place]ahu[place] coronary artery of [place]ahu[place] heart with angina pectoris Assessment History of placement of stent in Z95.5 Active LAD coronary artery Assessment Mixed hyperlipidemia E78.2 Active Assessment Frequent falls R29.6 Active Assessment Essential hypertension I10 Activ e Problem Reduced vision H54.7 Active Problem Cataract extraction status, Z98.49 Active unspecified eye Problem Mixed hyperlipidemia E78.2 Active Problem Blurry vision H53.8 Active Problem Presence of intraocular lens Z96.1 Active Problem Chronic diarrhea K52.9 Active Problem Acute systolic congestive heart I50.21 Active failure Problem Dementia without behavioral F03.90 Active disturbance, unspecified dementia type Problem Non-intractable vomiting with R11.2 Active nausea, unspecified vomiting type Problem Essential hypertension I10 Activ e Problem Vitamin D deficiency E55.9 Active Problem Hyperlipemia E78.5 Active Problem Cellulitis of chest wall L03.313 Act meredith Problem Hyperlipidemia, unspecified E78.5 Active hyperlipidemia type Problem History of placement of stent in Z95.5 Active LAD coronary artery Problem Coronary artery disease involving I25.119 Active [place] coronary artery of [place]ahu[place] heart with angina pectoris Problem Frequent falls R29.6 Active Problem Systolic congestive heart failure, I50.20 Active unspecified HF chronicity Assessment Dementia without behavioral F03.90 Active disturbance, unspecified dementia type Problem History of kidney stones Z87.442 Act meredith Assessment Vitamin D deficiency E55.9 Active Problem Pain in right knee M25.561 Active Assessment Pain in right knee M25.561 Active Problem Prostate disorder N42.9 Active Assessment Pain in left knee M25.562 Active Problem Chronic kidney disease, unspecified N18.9 Active CKD stage Problem Elevated blood pressure reading R03.0 Active without diagnosis of hypertension Assessment Right leg paresthesias R20.2 Activ e Problem Right leg paresthesias R20.2 Activ e Problem Other chronic pain G89.29 Active Problem Pain in left knee M25.562 Active Medications Medication Code Code Instructions Start End Status Dosage System Date Date Doxycycline [facility] 10513268550 100 MG Oral Active TAKE 1 Hyclate CAPSULE BY MOUTH EVERY 12 HOURS Ultram [facility] 26009318527 50 MG Orally Active 1 tab a s daily needed for severe pain Krill Oil [facility] 86897442585 1000 MG Orally Active (ot c) 1 Twice daily capsule Lipitor ND 85045492006 10 MG Orally Active 1 table t Once a day Aspirin 81 [facility] 10460951568 81 MG Orally Active 1 ta blet Once a day Clopidogrel [facility] 51051407663 75 MG Orally Active 1 t ablet Bisulfate Once a day ProAir HFA [facility] 98173587201 108 (90 Base) Active 2 p uffs as MCG/ACT needed Inhalation every 6 hrs Lisinopril [facility] 53608172205 10 MG Orally Active 1 ta blet Once a day Furosemide ND 67760402542 20 MG Orally Active 1 ta blet Once a day Sulfamethoxazole [facility] 77978006919 800-160 MG Oral Act meredith TAKE 1 -Trimethoprim TABLET BY MOUTH EVERY 12 HOURS FOR 10 DAYS Donepezil HCl [facility] 85024280616 5 MG Orally Active 1 tablet Once a day for at bedtim e dementia Atorvastatin [facility] 03075794908 40 MG Orally Active 1 tablet Calcium Once a day Folic Acid [facility] 35981001473 1 MG Orally Jun 04, Feb 28, Active 1 tab let Once a day 2019 2019 Advair Diskus [facility] 17407758525 250-50 MCG/DOSE Active 1 puff Inhalation Twice a day Crestor [facility] 19719213225 20 MG Orally Active 1 table t Once a day in evening (for high cholestero l) Zofran [facility] 78412902719 4 MG Orally Jun 28, Active 1 tab let minutes prior 2019 as needed to taking abx. for (Doxycycline) nausea/vom twice daily iting Metoprolol [facility] 54937107505 25 MG Orally Active 1 ta blet Tartrate Twice a day with food Results No Known Results Summary Purpose eClinicalWorks Submission
--- OUTSIDE RECORDS SUMMARY | 2019-11-11 10:40 | XMS REPORT ---
:1945 Author Organization eClinicalWorks Care Team Providers Name Role Phone Ashley Rizzo Provider Role Unavailable Allergies No Known Allergies Problems Problem Type Condition Code Onset Dates Condition Statu s Problem Reduced vision H54.7 Active Problem Cataract [...] Problem Coronary artery disease involving I25.119 Active [place] coronary artery of [place] heart with angina pectoris Problem Frequent falls R29.6 Active Problem Systolic congestive heart failure, I50.20 Active unspecified HF chronicity Problem History of kidney stones Z87.442 Act meredith Problem Pain in right knee M25.561 Active Problem Prostate disorder N42.9 Active Problem Chronic kidney disease, unspecified N18.9 Active CKD stage Problem Elevated blood pressure reading R03.0 Active without diagnosis of hypertension Problem Right leg paresthesias R20.2 Activ e Problem Other chronic pain G89.29 Active Problem Pain in left knee M25.562 Active Medications No Known Medications Results No Known Results Summary Purpose eClinicalWorks Submission
--- OUTSIDE RECORDS SUMMARY | 2019-11-11 10:40 | XMS REPORT ---
:1945 Author Organization eClinicalWorks Care Team Providers Name Role Phone Ashley Rizzo Provider Role Unavailable Allergies No Known Allergies Problems Problem Type Condition Code Onset Dates Condition Statu s Assessment Preoperative clearance Z01.818 Activ e Problem Reduced vision H54.7 Active [...] Problem Coronary artery disease involving I25.119 Active [place] coronary artery of [place] heart with angina pectoris Problem Frequent falls [...]
--- OUTSIDE RECORDS SUMMARY | 2019-11-11 10:40 | XMS REPORT | Clinical Summary ---
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
--- OUTSIDE RECORDS SUMMARY | 2019-11-11 10:41 | XMS REPORT ---
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
--- OUTSIDE RECORDS SUMMARY | 2019-11-11 10:41 | XMS REPORT | Continuity of Care Document ---
:1945 Author Organization [facility] t Address [address] [place] [address] Care Team Providers Name Role Phone Asked, [...] right knee [place] - Memoria l [facility] History of History of Problem [...] - disease disease Memoria involving involving l [place] Outpati coronary coronary ent artery of artery of Clin ics [place] heart with heart with angina angina pectoris pectoris Reduced Reduced Problem Active [facility] Clinics Blurry Blurry Problem Active [facility] Mixed Mixed Problem Active [facility]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 hyperlipid [place] - emia emia Memoria l [facility]ics Chronic Chronic Problem Active [facility] diarrhea diarrhea [facility]ics Hyperlipid Hyperlipid Problem Active [facility] emia, emia, [facility]ukes - unspecifie unspecifie Me moria d d l hyperlipid hyperlipid Ou tpati emia type emia type ent Clinics Prostate Prostate Problem Active [facility] disorder [facility] Cataract Cataract Problem Active [facility] extraction extraction [place] - status, status, Memoria unspecifie unspecifie l d eye d eye [facility] Clin[facility] Presence Presence Problem Active [facility] t of of [facility] - intraocula intraocula Me moria r lens r lens l [facility] Clin[facility] History of History of Problem Active [facility] kidney kidney [facility] - stones stones Memoria l [facility] Chronic Chronic Problem Active [facility] kidney kidney [facility] - disease, disease, Memori a unspecifie unspecifie l d CKD d CKD [facility] stage stage ent Clinics Vitamin D Vitamin D Problem Active [facility] deficiency deficiency [place] - Memoria l [facility] ent Clinics Systolic Systolic Problem Active [facility] [...] chest [facility] - wall wall Memoria l [facility] Frequent Frequent Problem Active [facility] [place] [facility] l [facility] Clinics Essential Essential Problem Active [facility] hypertensi hypertensi [place] - on on Memoria l [facility] ent Clinics Preoperati Preoperati Diagnosis Active [facility] ve ve [facility] - clearance clearance Juanpablo jos l [facility] Clin[facility] Allergies, Adverse Reactions, Alerts This patient has no known allergies or adverse reactions. Social History Social Habit Start Date Stop Date Quantity Comments Source Sex Assigned At [facility] ethodist Alcohol intake 2018-06-20 2018-06-20 Current drinker [place] 00:00:00 00:00:00 of alcohol (finding) Smoking Status Start Date Stop Date Source Current some day smoker 2018-06-20 00:00:00 [place] Medications Ordered Filled Start Stop Current Ordering [...] Future Scheduled 2019-11-30 INFLUENZA VACCINE [place] [facility] 00:00:00 [code = INFLUENZA VACCINE] Future Scheduled 2012-12-28 65+ PNEUMOCOCCAL [place] Test 00:00:00 VACCINE (1 of 2 - PCV13) [code = 65+ PNEUMOCOCCAL VACCINE (1 of 2 - PCV13)] Future Scheduled 1997-12-28 [facility] 00:00:00 [code = COLONOSCOPY SCREENING] Future Scheduled 1997-12-28 SHINGLES VACCINES (#1) [place] Test 00:00:00 [code = SHINGLES VACCINES (#1)] Encounters Start End Encounter Admission Attending Care Care Encounter Source Date/Time Date/Time Type Type Clinicians Facility Department ID 2019-10-29 2019-10-29 Outpatient Mary Ann Garcia [id number] [facility] 14:45:00 14:45:00 [facility] Medicine Medicine Outpati ent Clinics 2019-08-20 2019-08-20 Outpatient Mary Ann Reeset [id number] [facility] [address] 22:48:00 22:48:00 [facility] Medicine l Medicine Outpati ent Clinics 2019-08-20 2019-08-20 Outpatient Mary Ann Reeset [id number] [facility] 13:00:00 13:00:00 [facility] Medicine Medicine Outpati ent Clinics 2019-08-13 2019-08-13 Outpatient Mary Ann Reeset [id number] [facility] 15:02:00 15:02:00 [facility] Medicine Outpati ent Clinics 2019-06-28 2019-06-28 [facility] [id number] [facility] 14:00:00 14:00:00 [facility] Medicine Outpati ent Clinics 2019-06-04 2019-06-04 [facility] [id number] [address] 10:30:00 10:30:00 [facility] Medicine Outpati ent Clinics 2019-05-21 2019-05-21 [facility] [id number] [facility] 14[facility]30:00 14:30:00 [facility] Outpati ent Clinics 2019-03-20 2019-03-20 [facility] [id number] [address] 14:00:00 14:00:00 [facility] Outpati ent Clinics Results This patient has no known results.
--- OUTSIDE RECORDS SUMMARY | 2019-11-11 10:42 | XMS REPORT ---
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
--- OUTSIDE RECORDS SUMMARY | 2019-11-11 10:42 | XMS REPORT ---
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 Problem Frequent falls [...] End Status Dosage System Date Date Doxycycline [facility] 28819799741 100 MG Oral Active TAKE 1 Hyclate CAPSULE BY MOUTH EVERY 12 HOURS Ultram [facility] 16395165031 50 MG Orally Active 1 tab a s daily needed for severe pain Krill Oil [facility] 45580677116 1000 MG Orally Active (ot c) 1 Twice daily capsule Lipitor ND 68177379736 10 MG Orally Active 1 table t Once a day Aspirin 81 [facility] 23034774418 81 MG Orally Active 1 ta blet Once a day Clopidogrel [facility] 72036388301 75 MG Orally Active 1 t ablet Bisulfate Once a day ProAir HFA [facility] 88226976244 108 (90 Base) Active 2 p uffs as MCG/ACT needed Inhalation every 6 hrs Lisinopril [facility] 39727022122 10 MG Orally Active 1 ta blet Once a day Furosemide ND 31671795626 20 MG Orally Active 1 ta blet Once a day Sulfamethoxazole [facility] 54773810258 800-160 MG Oral Act meredith TAKE 1 -Trimethoprim TABLET BY MOUTH EVERY 12 HOURS FOR 10 DAYS Donepezil HCl [facility] 90747101649 5 MG Orally Active 1 tablet Once a day for at bedtim e dementia Atorvastatin [facility] 24071203003 40 MG Orally Active 1 tablet Calcium Once a day Folic Acid [facility] 63697786177 1 MG Orally Jun 04, Feb 28, Active 1 tab let Once a day 2019 2019 Advair Diskus [facility] 60876372610 250-50 MCG/DOSE Active 1 puff Inhalation Twice a day Crestor [facility] 58666423485 20 MG Orally Active 1 table t Once a day in evening (for high cholestero l) Zofran [facility] 20975903705 4 MG Orally Jun 28, Active 1 tab let minutes prior 2019 as needed to taking abx. for (Doxycycline) nausea/vom twice daily iting Metoprolol [facility] 24671283482 25 MG Orally Active 1 ta blet Tartrate Twice a day with food Results No Known Results Summary Purpose eClinicalWorks Submission
--- OUTSIDE RECORDS SUMMARY | 2019-11-11 10:42 | XMS REPORT ---
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
[2019-11-11 12:56] LABS: CSF Glucose 56 mg/dL (40-70)
--- NOTE | 2019-11-11 13:10 | RAD REPORT ---
EXAM DESCRIPTION: RAD - Lumbar Puncture For Dx - 11/11/2019 12:24 pm CLINICAL HISTORY: G91.2 dementia/possible normal pressure hydrocephalus COMPARISON: None FINDINGS: The risks, benefits and alternatives to the procedure were explained to the patient and in formed consent obtained. The patient was placed prone into the fluoroscopy suite. The skin and subcutaneous tissues were anest hetized with lidocaine. Under fluoroscopic guidance a 22 gauge spinal needle was advanced into the th ecal sac at L2-3 level. 30 cc of CSF was removed and sent to the lab. Patient experienced no immediate complication IMPRESSION: Lumbar puncture. 30 cc CSF removed
[2019-11-11 13:12] LABS: Appearance CLEAR (CLEAR); Body Fluid Source CSF; Body Fluid WBC 0 /mm^3; Color of fluid Colorless (COLORLESS); Fluid Total Volume 28 ml
[2019-11-11 14:41] VITALS: BP 155/58; TEMP 97.4; O2SAT 98
[2019-11-15 00:01] LABS: Albumin, (SPE) 3.7 g/dL (3.8-4.8); Alpha-1-Globulins 0.3 g/dL (0.2-0.3); Alpha-2-Globulins 0.7 g/dL (0.5-0.9); Gamma Globulins 0.8 g/dL (0.8-1.7); INTERPRETATION REPORT
== END 2019-11-11 14:30 | disposition home or self-care (01) ==
LOC: DS 09:02 → RAD 09:02 → EDSTATUS 10:00 → DS 14:30
PROVIDERS: ATTEND Psychiatry & Neurology Neurology with Special Qualifications in Child Neurology
PROC: 009U3ZX Drainage of Spinal Canal, Percutaneous Approach, Diagnostic (ICD-10-PCS; principal; 2019-11-11)
DX: G91.2 (Idiopathic) normal pressure hydrocephalus (principal)
CPT/HCPCS: 36415; 77003; 82945; 84157; 84165; 85049; 85610; 85730; 88108; 89050

== ENCOUNTER 2020-02-19 18:08 | Emergency (ER) | payer OTHER ==
--- OUTSIDE RECORDS SUMMARY | 2020-02-19 18:11 | XMS REPORT | Continuity of Care Document ---
:1945 Author Organization [facility] t Address [facility] [place] [address] Care Team Providers Name Role Phone Asked, Pcp Primary Care Physician Unavailable Problems Condition [...] Me moria heart heart l failure failure [facility] Pain in Pain in Problem Active [facility] right knee right knee [place] - Memoria l [facility] History of History of Problem [...] [place] - as as Memoria l [facility] Elevated Elevated Problem Active [facility] blood blood [facility] - pressure pressure Memori a reading reading l without without Outpati diagnosis diagnosis ent of of Clinics hypertensi hypertensi on on Coronary Coronary Problem Active [facility] artery artery [facility] - disease disease Memoria involving involving l [place]pati coronary coronary ent artery of artery of Clin ics [place] heart with heart with angina angina pectoris pectoris Reduced Reduced Problem Active [facility] Blurry Blurry Problem Active [facility] Mixed Mixed Problem Active [facility]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 hyperlipid [place] - emia emia Memoria l [facility] Chronic Chronic Problem Active [facility] diarrhea diarrhea [facility]ics Hyperlipid Hyperlipid Problem Active [facility] emia, emia, [facility] - unspecifie unspecifie Me moria d d l hyperlipid hyperlipid Ou tpati emia type emia type ent Clinics Prostate Prostate Problem Active [facility] Cataract Cataract Problem Active [facility] t extraction extraction [place] - status, status, Memoria unspecifie unspecifie l d eye d eye [facility] Presence Presence Problem Active [facility] of of [facility] - intraocula intraocula Me moria r lens r lens l [facility] History of History of Problem Active [facility] kidney kidney [facility] - stones stones Memoria l [facility] Chronic Chronic Problem Active [facility] kidney kidney [facility]ukes - disease, disease, Memori a unspecifie unspecifie l d CKD d CKD [facility] stage stage [facility] Clinics Vitamin D Vitamin D Problem Active [facility] deficiency deficiency [place] - Memoria l [facility]ics Systolic Systolic Problem Active [facility] [...] chest [facility] Memoria l [facility] Frequent Frequent Problem Active [facility] [place] [facility] Essential Essential Problem Active [facility] hypertensi hypertensi [place] - on on Memoria l [facility] Allergies, Adverse Reactions, Alerts This patient has no known allergies or adverse reactions. Social History Social Habit Start Date Stop Date Quantity Comments Source Sex Assigned At [place] ethodist Alcohol intake 2018-06-20 2018-06-20 Current drinker [place] 00:00:00 00:00:00 of alcohol (finding) Smoking Status Start Date Stop Date Source Current some day smoker 2018-06-20 00:00:00 [place] Medications Ordered Filled Start Stop Current Ordering [...] Memoria 00 l Outpati ent Clinics Crestor Crestri Yes Ashley [address] [...] Outpati ent Clinics Aspirin 81 Aspirin 81 2020- No Ashley [address] 10-31 [facility] - 00:00 Memoria :00 l Outpati ent Clinics Procedures This patient has no known procedures. Plan of Care Planned Activity Planned Date Details Comments Source Future Scheduled 2019-11-30 INFLUENZA VACCINE [place] [facility] 00:00:00 [code = INFLUENZA VACCINE] Future Scheduled 2012-12-28 65+ PNEUMOCOCCAL [facility] Test 00:00:00 VACCINE (1 of 1 - PPSV23) [code = 65+ PNEUMOCOCCAL VACCINE (1 of 1 - PPSV23)] Future Scheduled 1997-12-28 COLONOSCOPY SCREENING [place] Test 00:00:00 [code = COLONOSCOPY SCREENING] Future Scheduled 1997-12-28 SHINGLES VACCINES (#1) [place] 00:00:00 [code = SHINGLES VACCINES (#1)] Encounters Start End Encounter Admission Attending Care Care Encounter Source Date/Time Date/Time Type Type Clinicians Facility Department ID 2019-10-29 2019-10-29 Outpatient Mary Ann Garcia [id number] 14:45:00 14:45:00 [facility] Medicine l Medicine Outpati ent Clinics 2019-10-18 2019-10-18 Outpatient Mary Ann Reeset [id number] [facility] 15:54:00 15:54:00 [facility] Medicine l Medicine Outpati ent Clinics 2019-08-20 2019-08-20 Outpatient Mary Ann Reeset [id number] 22:48:00 22:48:00 [facility] Medicine l Medicine Outpati ent Clinics 2019-08-20 2019-08-20 Outpatient Mary Ann Reeset [id number] 13:00:00 13:00:00 [facility] Medicine l Medicine Outpati ent Clinics 2019-08-13 2019-08-13 [facility] [id number] [facility] 15:02:00 15:02:00 [facility] Medicine Outpati ent Clinics 2019-06-28 2019-06-28 [facility] [id number] [facility] 14:00:00 14:00:00 [facility] Medicine Outpati ent Clinics 2019-06-04 2019-06-04 [facility] [id number] [facility] 10:30:00 10:30:00 [facility] Medicine Outpati ent Clinics 2019-05-21 2019-05-21 [facility] [id number] [facility] 14:30:00 14:30:00 [facility] Medicine Outpati ent Clinics 2019-03-20 2019-03-20 [facility] [id number] [facility] 14:00:00 14:00:00 [facility] Medicine Outpati ent Clinics Results This patient has no known results.
--- OUTSIDE RECORDS SUMMARY | 2020-02-19 18:11 | XMS REPORT | Clinical Summary ---
:1945 Author Organization [place] [employer] Address [address] [place] [address] Care Team Providers Name Role Phone Asked, Pcp Primary Care Provider Unavailable Allergies No Known Active Allergies Medications Not on file Active Problems Not on file Social History Tobacco Use Types Packs/Day Years Used Date Current Some Day Smoker Alcohol Use Drinks/Week oz/Week Comments Yes Sex Assigned at Date Recorded Not on file Last Filed Vital Signs Not on file Plan of Treatment Health Maintenance Due Date Last Done Comments COLONOSCOPY SCREENING 12/28/1997 SHINGLES VACCINES (#1) 12/28/1997 65+ PNEUMOCOCCAL VACCINE (1 of 1 - PPSV23) 12/28/2012 INFLUENZA VACCINE 11/30/2019 Results Not on fileafter 02/18/2019 Insurance Payer Benefit Plan / Subscriber ID Effective Dates Phone Addre ss Type Group [employer] [id number] [facility] Advance Directives For more information, please contact: [phone] Type Date Recorded 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
[2020-02-19] MEDS ORDERED: NA CHLORIDE 0.9% 500 ML ONE (19:29)
[2020-02-19] MEDS ORDERED: ONDANSETRON 4 MG/2 ML VIAL ONE (19:29)
[2020-02-19 19:49] LABS: Absolute Lymphocytes (CBC) 1.8 K/uL (0.7-4.9); Basophils % 0.8 % (0-1.3); Hematocrit 37.4 % (39.6-49.0); Lymphocytes % 21.5 % (15.3-44.8); MPV 8.6 fL (7.6-11.3); RBC Red Blood Cell Count 4.38 M/uL (4.33-5.43)
--- NOTE | 2020-02-19 19:56 | RAD REPORT ---
EXAM DESCRIPTION: CT - Abdomen Pelvis W Contrast - 02/19/2020 7:42 pm CLINICAL HISTORY: Abdominal pain/diarrhea COMPARISON: 2014 TECHNIQUE: Computed axial tomography of the abdomen pelvis was obtained. 100 cc Isovue-300 was admin istered intravenously. Oral contrast was not requested which limits evaluation of bowel. All CT scans are performed using dose optimization technique as appropriate and may include automated exposure control or mA/KV adjustment according to patient size. FINDINGS: Small hiatal hernia Small hepatic cyst. Small gallstones. No gallbladder wall thickening The spleen, pancreas, adrenal and kidneys appear unremarkable. There is no evidence of diverticulitis. Normal appendix Small right and small to moderate left inguinal hernias contain fat Hemangiomas present within T11 vertebral body. Mild chronic deformity L1 vertebral body. 4 centimeter diverticulum stems from third portion of the d uodenum IMPRESSION: Cholelithiasis without evidence cholecystitis
[2020-02-19 20:11] LABS: ALT/SGPT 20 U/L (12-78); AST/SGOT 14 U/L (15-37); Albumin 3.4 g/dL (3.4-5.0); Alkaline Phosphatase 119 U/L (45-117); BUN Blood Urea Nitrogen 15 mg/dL (7-18); Bicarbonate 30 mmol/L (21-32); Bilirubin Direct < 0.1 mg/dL (0-0.2); Bilirubin Total 0.3 mg/dL (0.2-1.0); Glucose Level 100 mg/dL (74-106); Lipase 214 U/L (73-393); Protein, Total 7.4 g/dL (6.4-8.2); Sodium Level 143 mmol/L (136-145)
--- NOTE | 2020-02-19 21:08 | RAD REPORT ---
EXAM DESCRIPTION: US - Abdomen Exam Limited - 02/19/2020 8:57 pm CLINICAL HISTORY: Abdominal pain. COMPARISON: CT abdomen February 19, 2020 FINDINGS: Gallstones. The common bile duct measures 7 millimeters. Gallbladder wall is not thickened IMPRESSION: Cholelithiasis without evidence of cholecystitis Borderline dilatation of common bile duct
--- NOTE | 2020-02-19 21:38 | EDPHYS ---
Physician Documentation [facility] Name: Zelalem Mendiola Age: 74 yrs Sex: Male : 1945 Arrival Date: 02/19/2020 Time: 18:11 Bed 15 Private MD: Ashley Rizzo ED Physician Conrad Tsang HPI: 02/18 19:19 This 74 yrs old Male presents to ER via Ambulatory with complaints of rn Diarrhea, General Weakness. 19:19 The patient presents to the emergency department with nausea, diarrhea. Onset: The rn symptoms/episode began/occurred 4 day(s) ago. Possible causes: unknown. The symptoms are aggravated by nothing. The symptoms are alleviated by nothing. Severity of symptoms: At their worst the symptoms were moderate in the emergency department the symptoms are unchanged. The patient has not experienced similar symptoms in the past. Family reports long time with bowel and bladder accidents, but worse for last 4 days with watery diarrhea and generalized weakness. Patient does not go anywhere but family member just started working back at [employer]. . Historical: - Allergies: 18:34 NKDA; ca1 - Home Meds: 18:34 donepezil 5 mg oral TbDL 1 tab once daily [Active]; lisinopril 10 mg Oral tab 1 tab ca1 once daily [Active]; folic acid 1 mg Oral tab 1 tab once daily [Active]; metoprolol tartrate 25 mg Oral tab 1 tab 2 times per day [Active]; clopidogrel 75 mg oral tab 1 tab once daily [Active]; furosemide 20 mg Oral tab monday and [Active]; atorvastatin 40 mg oral tab 1 tab once daily [Active]; - PMHx: 18:34 cardiac stent; Cataracts; Dementia; Hyperlipidemia; Hypertension; Myocardial infarction;ca1 - PSHx: 18:34 Neck Surgery; Stents heart; ca1 - Immunization history:: Adult Immunizations up to date, Pneumococcal vaccine is up to date, Flu vaccine is not up to date. - Social history:: Smoking status: Patient reports the use of cigarette tobacco products, smokes one pack cigarettes per day. - Family history:: not pertinent. - Hospitalizations: : No recent hospitalization is reported. ROS: 19:19 Constitutional: Negative for fever, chills, and weight loss, Eyes: Negative for injury, rn pain, redness, and discharge, Neck: Negative for injury, pain, and swelling, Cardiovascular: Negative for chest pain, palpitations, and edema, Respiratory: Negative for shortness of breath, cough, wheezing, and pleuritic chest pain, Abdomen/GI: Negative for abdominal pain, vomiting, and constipation, MS/Extremity: Negative for injury and deformity, Skin: Negative for injury, rash, and discoloration, Neuro: Negative for headache, numbness, tingling, and seizure. Exam: 19:19 Constitutional: This is a well developed, well nourished patient who is awake, alert, rn and in no acute distress. Head/Face: Normocephalic, atraumatic. ENT: dry MM Cardiovascular: Regular rate and rhythm. No pulse deficits. Respiratory: No increased work of breathing, no retractions or nasal flaring. Abdomen/GI: Soft, non-tender Skin: Warm, dry MS/ Extremity: Pulses equal, no cyanosis. Neurovascular intact. Full, normal range of motion. Equal circumference. Neuro: Awake and alert, GCS 15, oriented to person, and situation. Cranial nerves II-XII grossly intact. Motor strength 4/5 in all extremities. Sensory grossly intact. Vital Signs: 18:26 BP 151 / 71; Pulse 60; Resp 15 S; Temp 97.1(TE); Pulse Ox 96% on R/A; Weight 81.65 kg ca1 (R); Height 5 ft. 9 in. (175.26 cm) (R); Pain 0/10; 19:57 Pulse 60; Resp 16 S; Pulse Ox 98% on R/A; ea 20:00 BP 138 / 58; Pulse 49; Resp 18; Pulse Ox 98% ; ea 21:03 BP 144 / 56; Pulse 52; Resp 17 S; Pulse Ox 100% on R/A; jd3 18:26 Body Mass Index 26.58 (81.65 kg, 175.26 cm) ca1 MDM: 19:03 Patient medically screened. rn 21:35 Differential diagnosis: viral gastroenteritis, gastroenteritis, chronic diarrhea. Data rn reviewed: vital signs, nurses notes, lab test result(s), radiologic studies, CT scan, ultrasound, and as a result, I will discharge patient. Counseling: I had a detailed discussion with the patient and/or guardian regarding: the historical points, exam findings, and any diagnostic results supporting the discharge/admit diagnosis, lab results, radiology results, the need for outpatient follow up, to return to the emergency department if symptoms worsen or persist or if there are any questions or concerns that arise at home. Response to treatment: the patient's symptoms have markedly improved after treatment, and as a result, I will discharge patient. Special discussion: I discussed with the patient/guardian in detail that at this point there is no indication for admission to the hospital. It is understood, however, that if the symptoms persist or worsen the patient needs to return immediately for re-evaluation. ED course: NO acute findings on bloodwork or CT or U/S. + small gallstones, but likely not the cause of 3 months of chronic diarrhea, knowles snot have any abd pain or tenderness, reports appetite good, and repeat abd exam does not reveal any tenderness at all. Will dc home with return precautions and GI f/u. . 21:35 ED course: NO diarrhea or vomiting here. . rn 02/18 19:11 Order name: Basic Metabolic Panel; Complete Time: 20:18 02/18 19:11 Order name: CBC with Diff; Complete Time: 20: rn 02/18 19:11 Order name: Hepatic Function; Complete Time: 20:18 rn 02/18 19:11 Order name: Lipase; Complete Time: 20:18 02/18 19:11 Order name: Flu; Complete Time: 20:18 rn 02/18 19:11 Order name: COVID-19 rn 02/18 19:11 Order name: IV Saline Lock; Complete Time: 19:33 rn 02/18 19:11 Order name: Labs collected and sent; Complete Time: 19:33 rn 02/18 19:11 Order name: CT Abd/Pelvis - IV Contrast Only; Complete Time: 20: rn 02/18 20:20 Order name: US Abdomen Limited; Complete Time: 21:12 rn Administered Medications: 19:28 Drug: NS 0.9% 500 ml Route: IV; Rate: bolus; Site: right antecubital; ea 21:51 Follow up: Response: No adverse reaction; IV Status: Completed infusion; IV Intake: jd3 500ml 19:54 Drug: Zofran (Ondansetron) 4 mg Route: IVP; Site: right antecubital; ea 21:51 Follow up: Response: No adverse reaction jd3 21:43 Drug: LoMOTIL 2 tabs Route: PO; jd3 21:51 Follow up: Response: Medication administered at discharge. jd3 Disposition: 02/19/20 21:37 Discharged to Home. Impression: Diarrhea, unspecified, Dehydration, Cholelithiasis. - Condition is Stable. - Discharge Instructions: Food Choices to Help Relieve Diarrhea, Adult, Dehydration, Adult, Diarrhea, Adult, Cholelithiasis. - Medication Reconciliation Form, Thank You Letter, Antibiotic Education, Prescription Opioid Use form. - Follow up: Gurjit Moreno MD; When: As needed; Reason: Recheck today's complaints, Re-evaluation by your physician. - Problem is an ongoing problem. - Symptoms have improved. Signatures: Dispatcher [employer] EDMS Conrad Tsang MD MD rn Antunez, Elena RN Sharan Jefferson ea, RN RN jshanna Ahumada, LILA Rose RN ca1 Corrections: (The following items were deleted from the chart) 21:52 21:37 02/19/2020 21:37 Discharged to Home. Impression: Diarrhea, unspecified; jd3 Dehydration; Cholelithiasis. Condition is Stable. Forms are Medication Reconciliation Form, Thank You Letter, Antibiotic Education, Prescription Opioid Use. Follow up: Gurjit Moreno; When: As needed; Reason: Recheck today's complaints, Re-evaluation by your physician. Problem is an ongoing problem. Symptoms have improved. rn
--- NOTE | 2020-02-19 21:38 | ER ---
Nurse's Notes [facility] Name: Zelalem Mendiola Age: 74 yrs Sex: Male : 1945 Arrival Date: 02/19/2020 Time: 18:11 Bed 15 Private MD: Ashley Rizzo Diagnosis: Diarrhea, unspecified;Dehydration;Cholelithiasis Presentation: 02/18 18:26 Chief complaint: Spouse and/or significant other states: : Diarrhea, on and off for ca1 the last couple months. Worse for the last 4 - 5 days. Denies N/V/abdominal pain. States, "he can't control his bowels anymore. He can't also control his urine. He sleeps all day, 18 hours at a time". Denies fever. Coronavirus screen: Client denies travel out of the [place] in the last 14 days. diarrhea, Client presents with at least one sign or symptom that may indicate coronavirus-19. Standard/surgical mask placed on the client. Provider contacted for isolation considerations. The client denies any previous COVID testing. Ebola Screen: Patient negative for fever greater than or equal to 101.5 degrees Fahrenheit, and additional compatible Ebola Virus Disease symptoms Patient denies exposure to infectious person. Patient denies travel to an Ebola-affected area in the 21 days before illness onset. No symptoms or risks identified at this time. Initial Sepsis Screen: Does the patient meet any 2 criteria? No. Patient's initial sepsis screen is negative. Does the patient have a suspected source of infection? No. Patient's initial sepsis screen is negative. Risk Assessment: Do you want to hurt yourself or someone else? Patient reports no desire to harm self or others. Onset of symptoms was February 19, 2020. 18:26 Method Of Arrival: Ambulatory ca1 18:26 Acuity: PADMAJA 3 ca1 Triage Assessment: 21:50 General: Behavior is calm, cooperative, appropriate for age. jd3 Historical: - Allergies: 18:34 NKDA; ca1 - Home Meds: 18:34 donepezil 5 mg oral TbDL 1 tab once daily [Active]; lisinopril 10 mg Oral tab 1 tab ca1 once daily [Active]; folic acid 1 mg Oral tab 1 tab once daily [Active]; metoprolol tartrate 25 mg Oral tab 1 tab 2 times per day [Active]; clopidogrel 75 mg oral tab 1 tab once daily [Active]; furosemide 20 mg Oral tab monday and [Active]; atorvastatin 40 mg oral tab 1 tab once daily [Active]; - PMHx: 18:34 cardiac stent; Cataracts; Dementia; Hyperlipidemia; Hypertension; Myocardial infarction;ca1 - PSHx: 18:34 Neck Surgery; Stents heart; ca1 - Immunization history:: Adult Immunizations up to date, Pneumococcal vaccine is up to date, Flu vaccine is not up to date. - Social history:: Smoking status: Patient reports the use of cigarette tobacco products, smokes one pack cigarettes per day. - Family history:: not pertinent. - Hospitalizations: : No recent hospitalization is reported. Screenin:04 Abuse screen: Denies threats or abuse. Nutritional screening: No deficits noted. jd3 Tuberculosis screening: No symptoms or risk factors identified. Fall Risk Ambulatory Aid- None/Bed Rest/Nurse Assist (0 pts). Gait- Normal/Bed Rest/Wheelchair (0 pts) Mental Status- Oriented to own ability (0 pts). Total Snow Fall Scale indicates No Risk (0-24 pts). Assessment: 19:03 General: Appears in no apparent distress. uncomfortable, Reports fatigue for 2-3 days. jd3 Pain: Denies pain. Neuro: Level of Consciousness is awake, alert, obeys commands, Oriented to person, place, time, situation. Cardiovascular: Denies chest pain, Heart tones S1 S2 present Capillary refill < 3 seconds Patient's skin is warm and dry. Respiratory: Reports shortness of breath on exertion Airway is patent Respiratory effort is even, unlabored, Respiratory pattern is regular, symmetrical, Breath sounds with wheezes bilaterally. GI: Abdomen is round non-distended, Bowel sounds present X 4 quads. Abd is soft and non tender X 4 quads. Reports diarrhea. : No signs and/or symptoms were reported regarding the genitourinary system. EENT: No signs and/or symptoms were reported regarding the EENT system. Derm: Skin is intact, Skin is dry, Skin is normal, Skin temperature is warm. Musculoskeletal: Circulation, motion, and sensation intact. Range of motion: intact in all extremities. 19:57 Reassessment: Patient appears in no apparent distress at this time. No changes from ea previously documented assessment. Patient and/or family updated on plan of care and expected duration. Pain level reassessed. Patient is alert, oriented x 3, equal unlabored respirations, skin warm/dry/pink. 21:03 Reassessment: Patient appears in no apparent distress at this time. No changes from ea previously documented assessment. Patient and/or family updated on plan of care and expected duration. Pain level reassessed. Patient is alert, oriented x 3, equal unlabored respirations, skin warm/dry/pink. 21:50 Reassessment: Patient appears in no apparent distress at this time. Patient and/or jd3 family updated on plan of care and expected duration. Pain level reassessed. Patient is alert, oriented x 3, equal unlabored respirations, skin warm/dry/pink. Patient states feeling better. Vital Signs: 18:26 BP 151 / 71; Pulse 60; Resp 15 S; Temp 97.1(TE); Pulse Ox 96% on R/A; Weight 81.65 kg ca1 (R); Height 5 ft. 9 in. (175.26 cm) (R); Pain 0/10; 19:57 Pulse 60; Resp 16 S; Pulse Ox 98% on R/A; ea 20:00 BP 138 / 58; Pulse 49; Resp 18; Pulse Ox 98% ; ea 21:03 BP 144 / 56; Pulse 52; Resp 17 S; Pulse Ox 100% on R/A; jd3 18:26 Body Mass Index 26.58 (81.65 kg, 175.26 cm) ca1 ED Course: 18:11 Patient arrived in ED. ag5 18:11 Ashley Rizzo MD is Private Physician. ag5 18:31 Triage completed. ca1 18:34 Arm band placed on right wrist. ca1 19:02 Sharan Long, LILA is Primary Nurse. jd3 19:03 Conrad Tsang MD is Attending Physician. rn 19:04 Patient has correct armband on for positive identification. Placed in gown. Bed in low jd3 position. Call light in reach. Side rails up X 1. Adult w/ patient. Pulse ox on. NIBP on. 19:30 Inserted saline lock: 20 gauge in right antecubital area, using aseptic technique. ea Blood collected. 19:42 CT Abd/Pelvis - IV Contrast Only In Process Unspecified. EDMS 20:57 US Abdomen Limited In Process Unspecified. EDMS 21:37 Gurjit Moreno MD is Referral Physician. rn 21:50 No provider procedures requiring assistance completed. IV discontinued, intact, jd3 bleeding controlled, No redness/swelling at site. Pressure dressing applied. Administered Medications: 19:28 Drug: NS 0.9% 500 ml Route: IV; Rate: bolus; Site: right antecubital; ea 21:51 Follow up: Response: No adverse reaction; IV Status: Completed infusion; IV Intake: jd3 500ml 19:54 Drug: Zofran (Ondansetron) 4 mg Route: IVP; Site: right antecubital; ea 21:51 Follow up: Response: No adverse reaction jd3 21:43 Drug: LoMOTIL 2 tabs Route: PO; jd3 21:51 Follow up: Response: Medication administered at discharge. jd3 Intake: 21:51 IV: 500ml; Total: 500ml. jd3 Outcome: 21:37 Discharge ordered by MD. rn 21:50 Discharged to home ambulatory, with family. jd3 21:50 Condition: stable 21:50 Discharge instructions given to patient, family, Instructed on discharge instructions, follow up and referral plans. Demonstrated understanding of instructions, follow-up care. 21:52 Patient left the ED. jd3 Addendum: 02/24/2020 19:17 Addendum: COVID-19 Result: Negative result given to RN to notify pt. Attempted to i w contact pt regarding negative COVID-19 swab results. Unable to leave voice mail due to the number provided was either not a working number, the voice mail has not been set up, or the voice mailbox is full.. Signatures: Dispatcher [employer] EDIN Feli Tovar RN Conrad Gramajo MD MD rn Antunez, Elena, RN RN ea Davies, Jonathon, RN RN jd3 Acob, Cheryl RN Daniel Hebert ag5 Corrections: (The following items were deleted from the chart) 02/18 21:44 21:03 BP 144 / 46; Pulse 52bpm; Resp 17bpm; Spontaneous; Pulse Ox 100% RA; ea jshanna
[2020-02-19] MEDS ORDERED: DIPHENOX/ATROP SULF 1 TAB PO ONE (21:54)
[2020-02-19 22:01] VITALS: TEMP 97.1
[2020-02-19 22:09] VITALS: BP 144/56; O2SAT 100
== END 2020-02-19 21:52 | disposition home or self-care (01) ==
LOC: ER 18:08
DX: E86.0 Dehydration (principal); K80.20 Calculus of gallbladder without cholecystitis without obstruction; Z20.828 Contact with and (suspected) exposure to other viral communicable diseases; I10 Essential (primary) hypertension; E78.5 Hyperlipidemia, unspecified; F03.90 Unspecified dementia, unspecified severity, without behavioral disturbance, psychotic disturbance, mood disturbance, and anxiety; F17.210 Nicotine dependence, cigarettes, uncomplicated; Z95.818 Presence of other cardiac implants and grafts
CPT/HCPCS: 96361; 85025; 80048; 36415; 82565; 80076; 83690; 87804 ×2; 74177; 76705; 96374; 99284; U0002; Q9967; J7040; J2405

== ENCOUNTER 2020-09-07 00:54 | Emergency (ER) | payer OTHER ==
--- OUTSIDE RECORDS SUMMARY | 2020-09-07 00:58 | XMS REPORT | Continuity of Care Document ---
:1945 Author Organization [facility] t Address [address] [place] [address] Care Team Providers Name Role Phone Erich Tate DO Primary Care Physician Jermaine Payan DO Attending Clinician Callie DEL TORO Attending Clinician Gary Major DO Attending Clinician Rob Rain MD Attending Clinician Saritha JOHNSON Attending Clinician Joshua Jaramillo NP Attending Clinician PEDRITO Admitting Clinician Unavailable Payers Payer Name Policy Type Policy Effective Date Expiration Source Number Date CIGNA [id number] 2020 [facility] 00:00:[address] [facility] [id number] 2020 -PresentHMO Problems Condition Condition Condition Status Onset Resolution Last Treating Co mments Source Name Details Category Date Date Treatment Clinician Date Calculus Calculus Disease Active [place] on of 08-15 Methodi gallbladde gallbladde 00:00: st r without r without 00 cholecysti cholecysti tis tis without without obstructio obstructio n n Allergies, Adverse Reactions, Alerts This patient has no known allergies or adverse reactions. Social History Social Habit Start Date Stop Date Quantity Comments Source Tobacco use and 2020-08-17 2020-08-17 Never used Cristopher Nuñez ethodist exposure 00:00:00 00:00:00 Alcohol intake 2020-08-17 2020-08-17 Current drinker Dominick on [facility] 00:00:00 00:00:00 of alcohol (finding) Sex [birth year] Cristopher bansalodist 00:00:00 00:00:00 Smoking Status Start Date Stop Date Source Current some day smoker 2020-08-17 00:00:00 [place] [facility] Medications Ordered Filled Start Stop Current Ordering Indication Dosage Frequency Signature Comments Components Source Medication Medication Date Date Medication? Clinician (SIG) Name Name isosorbide 2020- Yes 60mg QD Take 1 [place] mononitrate 4-23 05-23 tablet (60 M ethodi (IMDUR) 60 00:00: 23:59 mg total) s t MG 24 hr 00 :00 by mouth tablet daily for 30 days. furosemide Yes 20mg Q.5W Take 20 mg [place] (LASIX) 20 4-22 by mouth 2 Met hodi mg tablet 16:10: (two) st 34 times a week. Takes on Monday and metroNIDAZO 2020- No 500mg [id number] Take 1 Nicholas LE (FlagyL) 4-22 04-29 [id number] tablet Methodi 500 MG 00:00: 23:59 3D ([address] tablet 00 :00 total) by mouth 3 (three) times a day for 7 days. folic acid Yes 1mg QD Take 1 mg [place] (FOLVITE) 1 3-16 by mouth Meth feng MG tablet 00:00: daily. st 00 donepeziL Yes 5mg QD Take 5 mg Marly ston (ARICEPT) 5 3-16 by mouth Meth efng MG tablet 00:00: daily. st 00 metoprolol Yes 25mg Q.5D Take 25 mg [place] tartrate 2-24 by mouth 2 Metho di (LOPRESSOR) 00:00: (two) st 25 mg 00 times a tablet day. atorvastati Yes 40mg QD Take 40 mg Nicholas n (LIPITOR) 2-12 by mouth Meth feng 40 mg 00:00: daily. st tablet 00 clopidogreL Yes 75mg QD Take 75 mg Nicholas (PLAVIX) 75 2-12 by mouth Meth feng mg tablet 00:00: daily. st 00 lisinopriL Yes 10mg QD Take 10 mg [place] (PRINIVIL) 1-16 by mouth Metho di 10 mg 00:00: daily. st tablet 00 Zofran Zofran Yes Ashley [address] [facility] 2[facility]28 [place] [facility] nausea/vom l iting Outpati ent Clinics Folic Acid Folic Acid 2020- No Ashley [address] [facility] 2[facility] [...] [facility] needed [facility] Lipitor Lipitor Yes Ashley [address] [facility] Furosemide Furosemide Yes Ashley [address] [facility] Sulfamethox Sulfamethox Yes Ashley TAKE [address] [facility] azole-Trime azole-Trime [place] TABLET BY [facility] - thoprim thoprim MOUTH [facility]oria EVERY 12 l HOURS FOR Outpati 10 DAYS ent Clinics Doxycycline Doxycycline Yes Ashley TAKE [address] [facility] Hyclate Hyclate [place] CAPSULE BY [facility] - MOUTH [facility] EVERY 12 l HOURS [facility] Aspirin 81 Aspirin 81 2020- No Ashley [address] [facility] [facility] 10-31 [place] [facility]00 [facility]00 l [facility] Vital Signs Vital Name Observation Time Observation Value Comments Source Systolic blood 2020-08-20 11:37:52 122 mm[Hg] Trevon Merrill pressure Diastolic blood 2020-08-20 11:37:52 72 mm[Hg] Dominick Bellamyist pressure Heart rate 2020-08-20 11:37:52 52 /min Cristopher Merrill Respiratory rate 2020-08-20 11:37:52 22 /min Julianna Merrill Oxygen saturation in 2020-08-20 11:37:52 94 /min Cristopher Merrill Arterial blood by Pulse oximetry Body temperature 2020-08-20 07:50:58 37.17 Alma Delia Julianna Merrill Body height 2020-08-17 13:15:00 175.3 cm Cristopher Merrill Body weight 2020-08-17 13:15:00 96.163 kg Cristopher Merrill BMI 2020-08-17 13:15:00 31.31 kg/m2 Cristopher Merrill Procedures Procedure Date / Time Performing Clinician Source Performed CLOSTRIDIUM DIFFICILE 2020-08-20 13:22:00 Chang Cheney TOXIN Pedraza ABO AND RH CONFIRMATION 2020-08-20 05:30:00 Wendy Melara HC COMPLETE BLD COUNT 2020-08-20 04:15:00 Dayton Major W/AUTO DIFF Gary TYPE AND SCREEN 2020-08-20 04:15:00 Wendy Melara PROTHROMBIN TIME WITH INR 2020-08-20 04:15:00 Wendy Melara PARTIAL THROMBOPLASTIN 2020-08-20 04:15:00 Wendy Melara on [facility] TIME (PTT) BASIC METABOLIC PANEL 2020-08-20 04:00:00 Dayton Major [facility] Gary ESTIMATED GFR 2020-08-20 04:00:00 PedritoDayton Nicholas Meth odist Gary B NATRIURETIC PEPTIDE 2020-08-19 10:00:00 Teodoro Aguero on [facility] BASIC METABOLIC PANEL 2020-08-19 04:00:00 [place] Major Gary ESTIMATED GFR 2020-08-19 04:00:00 Pedrito [place] Cristopher Tobias odist Gary HC COMPLETE BLD COUNT 2020-08-18 06:45:00 Dayton Majorist W/AUTO DIFF Gary HEMOGLOBIN A1C 2020-08-18 06:45:00 Pedrito [place] Cristopher Meth odist Gary TTE COMPLETE, W CONTRAST, 2020-08-18 05:50:00 Beth Jaramillo W DOPPLER ([id number]) BASIC METABOLIC PANEL 2020-08-18 04:45:00 [place] Majro Gary ESTIMATED GFR 2020-08-18 04:45:00 Pedrito [place] Cristopher Tobias odist Gary MAGNESIUM LEVEL 2020-08-18 04:45:00 Pedrito [place] Cristopher Meth odist Gary PHOSPHORUS LEVEL 2020-08-18 04:45:00 Dayton Major Met tk Vega CV CARDIAC PET MYOCARDIAL 2020-08-17 13:57:40 Beth Jaramillo PERFUSION IMAGING CV STRESS TEST 2020-08-17 13:50:43 Beth Jaramillo Met tk TAYLOR HEPATOBILIARY W PHARM 2020-08-17 12:23:56 Stefan Payan Jermaine HC COMPLETE BLD COUNT 2020-08-17 05:00:00 Dayton Major W/AUTO DIFF Gary BASIC METABOLIC PANEL 2020-08-17 04:00:00 Dayton Major Gary ESTIMATED GFR 2020-08-17 04:00:00 Pedrito [place] Nicholas Meth odist Gary MAGNESIUM LEVEL 2020-08-17 04:00:00 PedritoDayton Cristopher Meth odist Gary PHOSPHORUS LEVEL 2020-08-17 04:00:00 Pedrito [place] Vega HC COMPLETE BLD COUNT 2020-08-16 04:45:00 Dayton Major W/AUTO DIFF Gary COMPREHENSIVE METABOLIC 2020-08-16 04:00:00 Dayton Major PANEL Gary ESTIMATED GFR 2020-08-16 04:00:00 Pedrito [place] Nicholas Meth odist Gary TROPONIN 2020-08-15 05:12:00 Stefan Payan Az thodist Jermaine LACTIC ACID LEVEL 2020-08-15 05:12:00 Stefan Payan Jermaine URINE CULTURE 2020-08-15 03:44:00 Stefan Payan Az nicholas Dean URINALYSIS SCREEN AND 2020-08-15 03:44:00 Stefan Payan MICROSCOPY, WITH REFLEX TO Jermaine CULTURE TROPONIN 2020-08-15 01:47:00 Stefan Payan Az thodist Jermaine LACTIC ACID LEVEL 2020-08-15 01:47:00 Stefan Payan COVID-19 QUALITATIVE PCR 2020-08-15 00:56:[address] RENAL STONE PROTOCOL 2020-08-15 00:47:52 Stefan Payan Jermaine ECG 12-LEAD 2020-08-14 23:43:10 Stefan Payan Me thodist Jermaine US GALLBLADDER 2020-08-14 23:20:00 Stefan Payan Az thodist Jermaine COMPREHENSIVE METABOLIC 2020-08-14 22:49:00 Stefan Payan PANEL Jermaine LACTIC ACID LEVEL, SEPSIS 2020-08-14 22:49:00 Stefan Payan - NOW AND REPEAT 2X EVERY Jermaine 3 HOURS LIPASE LEVEL 2020-08-14 22:49:00 Stefan Payan Me thodist Jermaine HC COMPLETE BLD COUNT 2020-08-14 22:49:00 Stefan Payan ton [facility] W/AUTO DIFF Jermaine GGT 2020-08-14 22:49:00 Stefan Payan Me thodist Jermaine ESTIMATED GFR 2020-08-14 22:49:00 Stefan Payan Me thodist Jermaine TROPONIN 2020-08-14 22:49:00 Stefan Payan Me thodist Jermaine ECG ED PRELIMINARY 2020-08-14 22:44:32 Stefan Payan [facility] INTERPRETATION Jermaine Plan of Care Planned Activity Planned Date Details Comments Source Future Scheduled 2020-11-29 INFLUENZA VACCINE Juliannato kirsty [facility] Test 00:00:00 [code = INFLUENZA VACCINE] Future Scheduled 1997-12-28 COLONOSCOPY SCREENING [place] [facility] Test 00:00:00 [code = COLONOSCOPY SCREENING] Future Scheduled 1997-12-28 SHINGLES VACCINES (#1) [place] [facility] Test 00:00:00 [code = SHINGLES VACCINES (#1)] Future Scheduled 1965-12-28 Hepatitis C screening [place] [facility] Test 00:00:00 (procedure) [code = 786924264] Future Scheduled 1963 COVID-19 VACCINE (1) Marly ston [facility] Test 00:00:00 [code = COVID-19 VACCINE (1)] Future Scheduled 1953-12-28 65+ P[place]UMOCOCCAL [place] [facility] Test 00:00:00 VACCINE (1 of 2 - PPSV23) [code = 65+ PNEUMOCOCCAL VACCINE (1 of 2 - PPSV23)] Encounters Start End Encounter Admission Attending Care Care Encounter Source Date/Time Date/Time Type Type Clinicians Facility Department ID 2020-09-01 2020-09-01 Outpatient [facility] [id number] SULAIMAN Qureshi 00:00:00 [facility]00:[facility] 2020-08-25 2020-08-25 Outpatient [facility] [id number] SULAIMAN Qureshi 00:00:00 [facility]00:00 [facility] 2020-08-14 2020-08-20 [id number] 00:00:00 00:00:00 DAVID [address] 2020-08-19 2020-08-19 Outpatient [facility] [id number] [facility] 2020-07-21 2020-07-21 [facility] [id number] 2020-05-26 2020-05-26 [facility] [id number] 2020-05-26 2020-05-26 [facility] [id number] 2020-02-19 2020-02-19 [facility] [id number] [facility] 2019-10-29 2019-10-29 [facility] [id number] 14[facility]45:00 14:45:00 [facility] Out[facility] Clinics 2019-10-18 2019-10-18 [facility] [id number] 15:54:00 15:54:00 [facility] Medicine Outpat[facility] ent Clinics 2019-08-20 2019-08-20 [facility] [id number] 22:48:00 22:48:00 [facility] Medicine Outpat[facility] ent Clinics 2019-08-20 2019-08-20 [facility] [id number] 13:00:00 13:00:00 [facility] Outpat[facility] ent Clinics 2019-08-13 2019-08-13 [facility] [id number] 15:02:00 15:02:00 [facility] Medicine Outpati ent Clinics 2019-06-28 2019-06-28 [facility] [id number] [facility] 14:00:00 14:00:00 [facility] Medicine Outpati ent Clinics 2019-06-04 2019-06-04 Outpatient Mary Ann Reeset [id number] 10:30:00 10:30:00 [facility] 2019-05-21 2019-05-21 Outpatient Mary Ann Reeset [id number] 14:30:00 14:30:00 [facility] 2019-03-20 2019-03-20 Outpatient Mary Ann Reeset [id number] 14:00:00 14:00:00 [facility] Results Test Description Test Time Test Results Result Source Comments Comments Transthoracic 2020-07-31 Interface, Radiology [facility] Echocardiogram 0 Results In - Methodis t Complete, (w 11:44:00 08/18/2020 11:45 AM Contrast, Strain CDTFormatting of and 3D if needed) this note might be different from the original. Echocardiography Report [address] [place] [address] Pat.Name: MICHAEL DIAS Pat.ID: [id number] .Date: 08/18/2020 Refer.MD: DAYTON MAJOR MDExam Time: 4:54:00 AM Study Type:Routine Echo Height: 69in Weight: 212lb BSA: 2.12 m2 Age: 8 1945,74Y Sex: MALE BP: 157/62 HR: 59 bpm Sonogrphr: KELLEY Rao Pat. Stat.:Inpatient Room: [place] [address] Study Status:Final Echo Event ID:[id number] Order ID: [id number] Reason for Study:Ventricular Function - Routine surveillance ofventricular function with known CAD an no change in clinical status orcardiac examPreopHistory / Clinical:Hypertensio n Procedures: 2D Echo, Colorflow Doppler, Portable, Intravenous LumasonContrastRace: C SUMM ALONZO: LV size is mildly enlarged. Biplane LV ejection fraction= 45% Overallwall motion is mildly hypokinetic.RV systolic function is normal.Diastolic dysfunction Grade I (Mild): Impaired relaxation with normalLV filling pressures.Insufficie nt TR jet to estimate PA systolic pressure. -----FINDINGS:------ LV: LV size is mildly enlarged. There is moderate eccentric LV hypertrophy. Biplane LV ejection fraction= 45%. LV EF is mildly depressed. Overall wall motion is mildly hypokinetic.RV: RV size is normal. RV systolic function is normal.LA: LA size is normal.RA: RA size is normal.AO: Aortic root diameter is upper limits of normal in size.CEM: There is an anterior space consistent with a prominent epicardial fat pad.AV: No structural AV abnormalities noted.MV: Mitral annular dilation.PV: Pulmonic valve not well seen.TV: Tricuspid valve not well seen.Smalls: Hepatic vein pressure is normal, RA pressure < 5mmHg. Diastolic dysfunction Grade I (Mild): Impaired relaxation with normal LV filling pressures.Other: Insufficient TR jet to estimate PA systolic pressure. -----MEASUREMENTS:-- 2DParasternal Long Ragland Ao An 2.2 cm LVPWd 1.5 cm Ao Rtd 3.8 cm Index 1.8 cm/m2 LA Ds 3.4 cm IVSd 1 cm RWT 0.5 LVIDd 5.6 cm Index 2.6 cm/m2 LV Mass 299.7 g (122-174) LVIDs 4.5 cm LVM Index 141.4 g/m2 LV%fs 20.4 % LVOT 2.1 cm LV EF Biplane LVEDV 178.4 ml (65-193) Index 84.1 ml/m2 LV CI 2.2 l/m/m2 LVESV 98.7 ml Index 46.5 ml/m2 LV SV 79.7 ml LV EF 44.7 % (63-77) HR 59 bpm LV CO 4.7 l/min LA Sng Plane LA Area 19.8 cm2 (8.8-23.4) LA Vol 62.8 ml Index 29.6 ml/m2 LA LngAx 5 cm LVOT LVOT Area 3.5 cm2 DOPPLERLVOT Stroke Vol & Cardiac Out LVOT TVI 20.9 cm HR 57 bpm LVOT LVOT SV 71.4 ml LVOT CO 4.1 l/min SVi 33.7 ml/m2 LVOT CI 1.9 l/m/m2MV E/A Ratio MV pkE 53.4 cm/s (60-130) MV E/A 0.6 MV pkA 83.3 cm/s Signed 08/18/2020 11:44 Nona Cleary MD Cv stress test 2020-08-18 04:56:21 Test Item Value Reference Range Interpretation Comme nts Resting HR (test code = 1165861536) 52 Resting BP (test code = 2249902986) 148&67 Peak MET Achieved (test code = 5 6650012384) Protocol Name (test code = 1243761796) Lexiscan Time in Exercise Phase (test code = 00:01:00 8856439579) Max Systolic BP (test code = 160 2695080477) Max Diastolic BP (test code = 70 5262485966) Max Heart Rate (test code = 82 8729289433) Max Predicted Heart Rate (test code = 148 0637157267) Target HR Formula (test code = (220 - Age)*100% 6742940237) Test Indication (test code = Pre-Op Evaluation 4500844218) Arrhy During Ex (test code = 1456235930) ECG Interp Before EX (test code = 3585437453) ECG Interp During Ex (test code = 4860412397) Ex Summary Comment (test code = 8106777266) Overall HR Response to Exercise (test code = 4440065248) Overall BP Response To Exercise (test code = 7316864318) Reason for Termination (test code = Protocol Complete 2566953095) Stress Test Impression (test code = -Waveform interpreted in report [id number]) associated with image study. No interpretation is provided as part of this Stress ECG report.- Cristopher Shaffer Cardiac PET Myocardial Perfusion [id number] 16:44:35 Interface, Radiology Results In - 08/17/2020 4:44 PM CDT See PDF file for full resultHousaug[facility] hospital Roman CatholicWV Hepatobiliary W Pharm (HIDA Scan w Pharm)2020-08-17 12:29:40Hm Interface, Radiology Results Incoming 08/17/2020 12:32 PM CDT Procedure: NM HEPATOBILIARY W PHARM (HIDA SCAN W PHARM)Clinical History:Biliary colic recurrent gallbladder dyskinesia suspectedTechnique:The patient was injected with 4 mCi of [id number] intravenously, followed by dynamic imaging of the abdomen in the anterior projection for 1 hour. The patient was given a liquid fatty meal consisting of 8 oz of Boost Plus, followed by dynamic imaging of the abdomen for 60 min; these images were used to calculate the gallbladder ejection fraction. Please note that this liquid fatty meal has been shown to be a reasonable and, in fact, more physiological alternative to CCK.Findings:There is normal uptake of tracer by the liver with normal excretion into the biliary tree. Tracer proceeds normally into the gallbladder and small bowel. Gallbladder ejection fraction = 55% (normal is >30%)Impression:1. No evidence of acute isra cystitis or common bile duct obstruction. 2. Normal gallbladder ejection fraction.[facility]-[id number] JosesitoistST. MARY'S [facility] 12 [id number] 08:57:11 Test Item Value Reference Range Interpretation Comments Ventricular rate (test 58 code = 253) Atrial rate (test code 58 = 255) ME interval (test code 146 = 266) QRSD interval (test 96 code = 260) QT interval (test code 482 = 264) QTC interval (test code 473 = 265) P axis 1 (test code = 23 267) QRS axis 1 (test code = 1 268) T wave axis (test code 49 = 270) EKG impression (test Sinus code = 273) bradycardia-Nonspecifi c ST abnormality-Abnormal ECG-In automated comparison with ECG of 20-JUN-2018 18:33,-T wave inversion no longer evident in Inferior leads-Nonspecific T wave abnormality, improved in Lateral leads- Cristopher BellamyistUrine [id number] 04:45:28 Test Item Value Reference Range Interpretation Comments Urine culture (test SEE COMMENT Bacteriu jos screen code = 4285575) negative. [facility] Ren[facility] Stone [id number] 00:56:23Hm Interface, Radiology Results Incoming - 08/15/2020 12:[address] RENAL STONE PROTOCOLCLINICAL INDICATION: RUQ abd and flank painTECHNIQUE: Multidetector CT of the abdomen and pelvis was performed without intravenous administration of iodinated contrast with multiplanar reformats.CT scans are performed using radiation dose reduction tech niques (iterative reconstruction and/or automated exposure control). Technical factors are evaluatedand adjusted to ensure appropriate moderation of exposure. Automated dose management technology is applied to adjust radiation exposure while achieving a diagnostic quality image.COMPARISON: CT 06/20/2018. FINDINGS:Evaluation of abdominopelvic contents limited due to lack of IV contrast.Lung bases: Trace pericardial effusion.Liver: Mild contour irregularity suggesting chronic liver disease. Few subcentimeter hepatic cysts/hypodensities are overall too small to characterize though are likely benign. [No follow-up recommended unless clinically warranted.] Gallbladder and biliary: Gallbladder with 0.5 cm calcification near the fundus. Common bile duct is not dilated. Pancreas: Normal.Spleen: Normal.Gastrointestinal: Moderate hiatal hernia. Sigmoid diverticulosis. Large and small bowel are normal in caliber. Appendix is visualized and appears normal.Adrenals: Normal. Kidneys and ureters: Moderate bilateral renal cortical thinning/scarring. No renal or ureteral calculi are visualized. No hydronephrosis.Urinary bladder: Well- distended. No urinary bladder calculi are visualized.Lymph nodes: Noenlarged lymph nodes in the abdomen or pelvis.Peritoneum: No ascites or free air.Vascular: Moderate atherosclerotic changes of the abdominal aorta and major branch vessels. Evaluation of vessel lumens is limited due to lack of IV contrast.Reproductive organs: Prostate gland measures 5.7 cm transvers e.Abdominal wall: Small bilateral fat-containing inguinal hernias.Bones: Stable mild anterior compression deformity of L1 vertebral body. Degenerative changes of lower lumbar spine.IMPRESSION:1. No renal, ureteral, or urinary bladder calculi are visualized.2. Cholelithiasis. No CT evidence of acute cho lecystitis.3. Sigmoid diverticulosis without diverticulitis.[facility]-[id number] Cristopher Christina [id number] 00:29:24Hm Interface, Radiology Results 08/15/2020 12:32 AM CDTFormatting of this note might be di fferent from the original.EXAMINATION: US GALLBLADDERCLINICAL HISTORY: ; RUQ abd painCOMPARISON: None.IMPRESSION:Gallbladder is contracted, with gallstones in the lumen. No wall thickening or pericholecystic fluid.Common bile duct measures 0.66 cm, within normal limits for patient's age. No intrahepatic biliary ductal dilation.Main portal vein measures 1 cm and demonstrates expected hepatopedal flow.[id number] ED Preliminary Interpretation - Not an [id number] 22:44:32 Test Item Value Reference Range Interpretation Comments TYE (test code = TYE) Stefan Payan DO 08/15/2020 3:14 [facility] ED Preliminary Interpretation - Not an OrderPerformed by: Stefan Payan DOAuthorized by: Stefan Payan DO ECG reviewed by ED Physician in the absence of a tire building supervisor: yes Interpretation: Interpretation: abnormal Rate: ECG rate: 58 ECG rate assessment: bradycardic Rhythm: Rhythm: sinus bradycardia Ectopy: Ectopy: none QRS: QRS axis: Normal QRS intervals: NormalConduction: Conduction: normal ST segments: ST segments: Non-specificT waves: T waves: normal Lab Interpretation Abnormal (test code = 95984-1) Cristopher Merrill
[2020-09-07 02:14] LABS: Absolute Lymphocytes (CBC) 0.8 K/uL (0.7-4.9); Basophils % 0.7 % (0-1.3); Hematocrit 39.3 % (39.6-49.0); Lymphocytes % 10.4 % (15.3-44.8); MPV 8.6 fL (7.6-11.3); RBC Red Blood Cell Count 4.55 M/uL (4.33-5.43)
[2020-09-07 02:33] LABS: Protime INR 1.05
[2020-09-07 02:47] LABS: ALT/SGPT 23 U/L (12-78); AST/SGOT 15 U/L (15-37); Albumin 3.9 g/dL (3.4-5.0); Alkaline Phosphatase 110 U/L (45-117); BUN Blood Urea Nitrogen 18 mg/dL (7-18); Bicarbonate 28 mmol/L (21-32); Bilirubin Direct 0.2 mg/dL (0-0.2); Bilirubin Total 0.7 mg/dL (0.2-1.0); Glucose Level 114 mg/dL (74-106); Magnesium 2.2 mg/dL (1.8-2.4); NT PRO-BNP 2917 pg/mL (<125); Potassium 4.7 mmol/L (3.5-5.1); Protein, Total 7.8 g/dL (6.4-8.2); Sodium Level 142 mmol/L (136-145); Troponin (Emerg Dept Use Only) < 0.02 ng/mL (0.0-0.045)
--- NOTE | 2020-09-07 04:23 | EDPHYS ---
Physician Documentation [facility] Name: Zelalem Mendiola Age: 74 yrs Sex: Male : 1945 Arrival Date: 09/07/2020 Time: 01: Bed 2 Private MD: ED Physician Alfredo Ash HPI: 09/07 06:51 This 74 yrs old Male presents to ER via Wheelchair with complaints of Leg tw4 Swelling, Feet Swelling. 06:51 The patient presents with swelling. The complaints affect the lateral aspect of left tw4 calf, left calf, medial aspect of left calf and left morales, lateral aspect of right calf, right calf, medial aspect of right calf and right morales. Context: The problem was sustained at home. Onset: The symptoms/episode began/occurred today. Modifying factors: The symptoms are alleviated by nothing. the symptoms are aggravated by nothing. The patient has not experienced similar symptoms in the past. Historical: - Allergies: 01:20 NKDA; bb - Home Meds: 01:20 atorvastatin 40 mg Oral tab 1 tab once daily [Active]; clopidogrel 75 mg Oral tab 1 tab bb once daily [Active]; donepezil 5 mg Oral TbDL 1 tab once daily [Active]; folic acid 1 mg Oral tab 1 tab once daily [Active]; furosemide 20 mg Oral tab MONDAY AND MONDAY [Active]; lisinopril 10 mg Oral tab 1 tab once daily [Active]; metoprolol tartrate 25 mg Oral tab 1 tab 2 times per day [Active]; 01:23 isosorbide 60 mg daily [Active]; bb - PMHx: 01:20 cardiac stent; Cataracts; Dementia; Hyperlipidemia; Hypertension; Myocardial infarction;bb - PSHx: 01:20 Neck Surgery; Stents heart; bb - Immunization history:: Adult Immunizations up to date. - Social history:: Smoking status: unknown. ROS: 06:51 Constitutional: Negative for fever, chills, and weight loss, Eyes: Negative for injury, tw4 pain, redness, and discharge, Cardiovascular: Negative for chest pain, palpitations, and edema, Respiratory: Negative for shortness of breath, cough, wheezing, and pleuritic chest pain, Abdomen/GI: Negative for abdominal pain, nausea, vomiting, diarrhea, and constipation, Back: Negative for injury and pain. 06:51 MS/extremity: Positive for swelling, Negative for injury or acute deformity, abrasion, bite, contusion, decreased range of motion, deformity, ecchymosis, erythema. Exam: 06:51 Constitutional: This is a well developed, well nourished patient who is awake, alert, tw4 and in no acute distress. Head/Face: Normocephalic, atraumatic. Chest/axilla: Normal chest wall appearance and motion. Nontender with no deformity. No lesions are appreciated. Cardiovascular: Regular rate and rhythm with a normal S1 and S2. No gallops, murmurs, or rubs. Normal PMI, no JVD. No pulse deficits. Respiratory: Lungs have equal breath sounds bilaterally, clear to auscultation and percussion. No rales, rhonchi or wheezes noted. No increased work of breathing, no retractions or nasal flaring. Abdomen/GI: Soft, non-tender, with normal bowel sounds. No distension or tympany. No guarding or rebound. No evidence of tenderness throughout. Back: No spinal tenderness. No costovertebral tenderness. Full range of motion. Neuro: Awake and alert, GCS 15, oriented to person, place, time, and situation. Cranial nerves II-XII grossly intact. Motor strength 5/5 in all extremities. Sensory grossly intact. Cerebellar exam normal. Normal gait. 06:51 Musculoskeletal/extremity: Extremities: noted in the right leg and left leg: swelling. Vital Signs: 01:17 BP 140 / 69; Pulse 69; Resp 20 S; Temp 98.6(O); Pulse Ox 97% on R/A; Weight 97.98 kg bb (R); Height 5 ft. 9 in. (175.26 cm) (R); Pain 0/10; 02:00 BP 140 / 76; Pulse 56; Resp 18; Pulse Ox 98% on R/A; wh 03:15 BP 142 / 74; Pulse 60; Resp 18; Pulse Ox 94% on R/A; wh 04:30 BP 146 / 68; Pulse 54; Resp 18; Pulse Ox 94% on R/A; wh 01:17 Body Mass Index 31.90 (97.98 kg, 175.26 cm) bb MDM: 04:22 Patient medically screened. 09/07 01:33 Order name: Basic Metabolic Panel 09/07 01:33 Order name: CBC with Diff 09/07 01:33 Order name: LFT's; Complete Time: 04:06 09/07 04:06 Interpretation: Normal except: GLOB 3.9; A/G 1.0. 09/07 01:33 Order name: Magnesium; Complete Time: 04:06 09/07 04:07 Interpretation: Within normal limits: MG 2.2. 09/07 01:33 Order name: NT PRO-BNP; Complete Time: 04:06 09/07 04:07 Interpretation: Abnormal: NT PRO-BNP 2917. 09/07 01:33 Order name: PT-INR; Complete Time: 04:06 09/07 04:07 Interpretation: Within normal limits: PT 12.1. 09/07 01:33 Order name: Troponin (emerg Dept Use Only); Complete Time: 04:06 09/07 04:08 Interpretation: Within normal limits: TROPED < 0.02. 09/07 01:33 Order name: XRAY Chest (1 view) 09/07 01:33 Order name: EKG; Complete Time: 01:34 09/07 01:33 Order name: Cardiac monitoring; Complete Time: 02:06 09/07 01:33 Order name: EKG - Nurse/Tech; Complete Time: 02:06 09/07 01:33 Order name: IV Saline Lock; Complete Time: 02:06 09/07 01:33 Order name: Basic Metabolic Panel; Complete Time: 04:06 ED09/07 04:07 Interpretation: Normal except: CL 108; GLUC 114; CRE 1.66; GFR 41. 09/07 01:33 Order name: CBC with Automated Diff; Complete Time: 04:06 EDMS 09/07 04:07 Interpretation: Normal except: HGB 13.5; HCT 39.3; LYM% 10.4; ADRIA% 75.7. 09/07 01:33 Order name: Labs collected and sent; Complete Time: 02:06 09/07 01:33 Order name: O2 Per Protocol; Complete Time: 02:06 09/07 01:33 Order name: O2 Sat Monitoring; Complete Time: 02:06 tw4 EC:51 Rate is 60 beats/min. Rhythm is regular. QRS [place] is Normal. TX interval is normal. QT tw4 interval is normal. No Q waves. T waves are Inverted in lead aVF. T waves are Flattened in lead aVL. Clinical impression: NSR w/ Non-specific ST/T Changes. Interpreted by me. Reviewed by me. Administered Medications: No medications were administered Disposition: 09/07/20 04:22 Discharged to Home. Impression: Edema, unspecified. - Condition is Stable. - Discharge Instructions: Edema, Peripheral Edema. - Medication Reconciliation Form, Thank You Letter, Antibiotic Education, Prescription Opioid Use form. - Follow up: Private Physician; When: Upon discharge from the Emergency Department; Reason: Recheck today's complaints, Continuance of care, Re-evaluation by your physician. - Problem is new. - Symptoms have improved. Signatures: Dispatcher [employer] EDMS Fina Lawrence RN RN bb Habalo, Winsy, RN RN wh Wadley, Terrence, MD MD tw4 Corrections: (The following items were deleted from the chart) 04:53 04:22 09/07/2020 04:22 Discharged to Home. Impression: Edema, unspecified. Condition is wh Stable. Forms are Medication Reconciliation Form, Thank You Letter, Antibiotic Education, Prescription Opioid Use. Follow up: Private Physician; When: Upon discharge from the Emergency Department; Reason: Recheck today's complaints, Continuance of care, Re-evaluation by your physician. Problem is new. Symptoms have improved. tw4
--- NOTE | 2020-09-07 04:23 | ER ---
Nurse's Notes [facility] Name: Zelalem Mendiola Age: 74 yrs Sex: Male : 1945 Arrival Date: 09/07/2020 Time: 01: Bed 2 Private MD: Diagnosis: Edema, unspecified Presentation: 09/07 01:17 Chief complaint: Spouse and/or significant other states: pt 's feet have been swollen bb the last couple of days. Coronavirus screen: At this time, the client does not indicate any symptoms associated with coronavirus-19. Ebola Screen: No symptoms or risks identified at this time. Initial Sepsis Screen: Does the patient meet any 2 criteria? No. Patient's initial sepsis screen is negative. Does the patient have a suspected source of infection? No. Patient's initial sepsis screen is negative. Risk Assessment: Do you want to hurt yourself or someone else? Patient reports no desire to harm self or others. Onset of symptoms was September 04, 2020. 01:17 Method Of Arrival: Wheelchair bb 01:17 Acuity: PADMAJA 3 bb Triage Assessment: 01:20 General: Appears in no apparent distress. Behavior is calm, cooperative. Pain: Denies bb pain. Neuro: Level of Consciousness is awake, alert, obeys commands, Oriented to person. Cardiovascular: Capillary refill < 3 seconds Patient's skin is warm and dry. Edema is 2+ to left ankle, left foot, right ankle and right foot. Respiratory: Respiratory effort is even, unlabored, Respiratory pattern is regular. GI: No signs and/or symptoms were reported involving the gastrointestinal system. Derm: Skin is pink, warm \T\ dry. Musculoskeletal: Circulation, motion, and sensation intact. Historical: - Allergies: 01:20 NKDA; bb - Home Meds: 01:20 atorvastatin 40 mg Oral tab 1 tab once daily [Active]; clopidogrel 75 mg Oral tab 1 tab bb once daily [Active]; donepezil 5 mg Oral TbDL 1 tab once daily [Active]; folic acid 1 mg Oral tab 1 tab once daily [Active]; furosemide 20 mg Oral tab MONDAY AND MONDAY [Active]; lisinopril 10 mg Oral tab 1 tab once daily [Active]; metoprolol tartrate 25 mg Oral tab 1 tab 2 times per day [Active]; 01:23 isosorbide 60 mg daily [Active]; bb - PMHx: 01:20 cardiac stent; Cataracts; Dementia; Hyperlipidemia; Hypertension; Myocardial infarction;bb - PSHx: 01:20 Neck Surgery; Stents heart; bb - Immunization history:: Adult Immunizations up to date. - Social history:: Smoking status: unknown. Screenin:30 Abuse screen: Denies threats or abuse. Denies injuries from another. Nutritional screening: No deficits noted. Tuberculosis screening: No symptoms or risk factors identified. Fall Risk None identified. Assessment: 01:30 General: Appears in no apparent distress. Behavior is calm, cooperative, appropriate wh for age. Pain: Denies pain. Neuro: Level of Consciousness is awake, alert, obeys commands, Oriented to person, place, time, situation, Appropriate for age. Cardiovascular: Edema pitting to left ankle and right ankle. Respiratory: Airway is patent Respiratory effort is even, unlabored, Respiratory pattern is regular, symmetrical. GI: Abdomen is non-distended. : No signs and/or symptoms were reported regarding the genitourinary system. EENT: No signs and/or symptoms were reported regarding the EENT system. Derm: Skin is intact. Musculoskeletal: Circulation, motion, and sensation intact. 03:00 Reassessment: Patient appears in no apparent distress at this time. No changes from previously documented assessment. Patient and/or family updated on plan of care and expected duration. Pain level reassessed. Patient is alert, oriented x 3, equal unlabored respirations, skin warm/dry/pink. 04:30 Reassessment: Patient appears in no apparent distress at this time. Patient and/or family updated on plan of care and expected duration. Pain level reassessed. Patient is alert, oriented x 3, equal unlabored respirations, skin warm/dry/pink. Vital Signs: 01:17 BP 140 / 69; Pulse 69; Resp 20 S; Temp 98.6(O); Pulse Ox 97% on R/A; Weight 97.98 kg bb (R); Height 5 ft. 9 in. (175.26 cm) (R); Pain 0/10; 02:00 BP 140 / 76; Pulse 56; Resp 18; Pulse Ox 98% on R/A; 03:15 BP 142 / 74; Pulse 60; Resp 18; Pulse Ox 94% on R/A; wh 04:30 BP 146 / 68; Pulse 54; Resp 18; Pulse Ox 94% on R/A; wh 01:17 Body Mass Index 31.90 (97.98 kg, 175.26 cm) ED Course: 01:01 Patient arrived in ED. bp1 01:19 Triage completed. bb 01:20 Arm band placed on. Family accompanied patient. bb 01:25 Alfredo Ash MD is Attending Physician. tw4 01:30 Patient has correct armband on for positive identification. Placed in gown. Bed in low wh position. Call light in reach. Side rails up X 1. quality assurance monitor final on. Pulse ox on. NIBP on. 01:45 Inserted saline lock: 20 gauge in right antecubital area, using aseptic technique. Blood collected. 02:05 Nay Woods, RN is Primary Nurse. 02:28 XRAY Chest (1 view) In Process Unspecified. EDMS 04:53 No provider procedures requiring assistance completed. IV discontinued, intact, bleeding controlled, No redness/swelling at site. Administered Medications: No medications were administered Outcome: 04:22 Discharge ordered by . tw4 04:53 Discharged to home via wheelchair, with family. 04:53 Condition: stable 04:53 Discharge instructions given to patient, family, Instructed on discharge instructions, follow up and referral plans. POC Demonstrated understanding of instructions, follow-up care, POC 04:53 Patient left the ED. Signatures: Dispatcher [employer] EDMS Fina Lawrence RN RN Nay Woods, LILA SHARP Alfredo Ash MD MD tw4 Julissa Olivarez bp1 Corrections: (The following items were deleted from the chart) 03:32 03:15 BP 135 / 92; Pulse 99bpm; Resp 18bpm; Pulse Ox 94% RA; [facility] 03:32 00:30 BP 123 / 79; Pulse 102bpm; Resp 18bpm; Pulse Ox 98% RA; [facility] 04:52 02:00 BP 140 / 76; Pulse 106bpm; Resp 18bpm; Pulse Ox 98% RA; [facility]
[2020-09-07 05:00] VITALS: TEMP 98.6
[2020-09-07 05:03] VITALS: O2SAT 94
[2020-09-07 05:04] VITALS: BP 146/68
--- NOTE | 2020-09-07 07:49 | RAD REPORT ---
EXAM DESCRIPTION: RAD - Chest Single View - 09/07/2020 2:28 am CLINICAL HISTORY: CHEST PAIN COMPARISON: Portable March 2019 TECHNIQUE: AP portable chest image was obtained 09/07/2020 2:28 am . FINDINGS: Slight motion degrades each lung base. No focal lung parenchymal process identified. Inter stitial pattern matches comparison. Heart and vasculature are normal. No measurable pleural effusion and no pneumothorax. No acute bony abnormality seen. No acute aortic findings suspected. IMPRESSION: No acute cardiopulmonary process. Exam is not significantly different from comparison.
== END 2020-09-07 04:53 | disposition home or self-care (01) ==
LOC: ER 00:54
DX: R60.9 Edema, unspecified (principal); I10 Essential (primary) hypertension; E78.5 Hyperlipidemia, unspecified; F03.90 Unspecified dementia, unspecified severity, without behavioral disturbance, psychotic disturbance, mood disturbance, and anxiety; Z95.818 Presence of other cardiac implants and grafts
CPT/HCPCS: 36415; 71045; 80048; 80076; 83735; 83880; 84484; 85025; 85610; 93005; 99284

== ENCOUNTER 2020-10-23 15:36 | Observation (INO) | payer OTHER ==
--- OUTSIDE RECORDS SUMMARY | 2020-10-23 15:40 | XMS REPORT | Continuity of Care Document ---
:1945 Author Organization [facility] t Address [address] [place] [address] Care Team Providers Name Role Phone Erich Tate DO Primary Care Physician Jermaine Payan DO Attending Clinician Callie DEL TORO Attending Clinician Gary Major DO Attending Clinician Rob Rain MD Attending Clinician Saritha JOHNSON Attending Clinician Joshua Jaramillo NP Attending Clinician MD Carmelo DARNELL Attending Clinician Unavailable JOSE Admitting Clinician Unavailable MD Carmelo DARNELL Admitting Clinician Unavailable Payers Payer Name Policy Type Policy Effective Date Expiration Source Number Date CIG[employer] [id number] [facility] [facility] [id number] 2020 -PresentHMO Problems Condition Condition Condition Status Onset Resolution Last Treating Co mments Source Name Details Category Date Date Treatment Clinician Date Calculus Calculus Disease Active [place] on of of 08-15 Methodi gallbladde gallbladde 00:00: st r without r without 00 cholecysti cholecysti tis tis without without obstructio obstructio n n Allergies, Adverse Reactions, Alerts This patient has no known allergies or adverse reactions. Social History Social Habit Start Date Stop Date Quantity Comments Source Tobacco use and 2020-08-17 2020-08-17 Never used Cristopher bansalodist exposure 00:00:00 00:00:00 Alcohol intake 2020-08-17 2020-08-17 Current drinker [place] 00:00:00 00:00:00 of alcohol (finding) Sex [birth year] At [birth year] Cristopher winters 00:00:00 00:00:00 Smoking Status Start Date Stop Date Source Current some day smoker 2020-08-17 00:00:00 [place] Medications Ordered Filled Start Stop Current Ordering Indication Dosage Frequency Signature Comments Components Source Medication Medication Date Date Medication? Clinician (SIG) Name Name isosorbide 2020- No 60mg QD Take 1 [place] mononitrate -23 05-23 tablet (60 M ethodi (IMDUR) 60 00:00: 23:59 mg total) s t MG 24 hr 00 :00 by mouth tablet daily for 30 days. furosemide Yes 20mg Q.5W Take 20 mg [place] (LASIX) 20 4-22 by mouth 2 Met hodi mg tablet 16:10: (two) st 34 times a week. Takes on Monday and metroNIDAZO 2020-0 2020- No 500mg Q.[id number] Take 1 [place] LE (FlagyL) 4-20 08- [id number] tablet Methodi 500 MG 00:00: 23:59 3D ([address] tablet 00 :00 total) by mouth 3 (three) times a day for 7 days. folic acid Yes 1mg QD Take 1 mg [place] (FOLVITE) 1 3-16 by mouth Meth feng MG tablet 00:00: daily. st 00 donepeziL 0 Yes 5mg QD Take 5 mg Marly ston (ARICEPT) 5 3-16 by mouth Meth feng MG tablet 00:00: daily. st 00 metoprolol [...] [facility] Sulfamethox Sulfamethox Yes Ashley TAKE [...] [facility] Vital Signs Vital Name Observation Time Observation Value Comments Source Systolic blood 2020-08-20 11:37:52 122 mm[Hg] Trevon Merrill pressure Diastolic blood 2020-08-20 11:37:52 72 mm[Hg] Dominick sarmiento [place] pressure Heart rate 2020-08-20 11:37:52 52 /min [...] TYPE AND SCREEN 2020-08-20 04:15:00 Wendy Melara odist PROTHROMBIN TIME WITH INR 2020-08-20 04:15:00 Wendy Melara [place] PARTIAL THROMBOPLASTIN 2020-08-20 04:15:00 Wendy Melara on [place] TIME (PTT) BASIC METABOLIC PANEL 2020-08-20 04:00:00 [place] Major [place] Gary ESTIMATED GFR 2020-08-20 04:00:00 [place] Major Meth odist Gary B NATRIURETIC PEPTIDE 2020-08-19 10:00:00 Teodoro Aguero on [place] BASIC METABOLIC PANEL 2020-08-19 04:00:00 [place] Major [place] Gary ESTIMATED GFR 2020-08-19 04:00:00 [place] Major Meth odist Gary HC COMPLETE BLD COUNT 2020-08-18 06:45:00 [place] Major W/AUTO DIFF Gary HEMOGLOBIN A1C 2020-08-18 06:45:00 [place] Major Meth odist Gary TTE COMPLETE, W CONTRAST, 2020-08-18 05:50:00 Beth Jaramillo W DOPPLER ([id number]) BASIC METABOLIC PANEL 2020-08-18 04:45:00 [place] Major [place] Gary ESTIMATED GFR 2020-08-18 04:45:00 [place] Major Meth odist Gary MAGNESIUM LEVEL 2020-08-18 04:45:00 [place] Major Meth odist Gary PHOSPHORUS LEVEL 2020-08-18 04:45:00 [place] Major Met tk Vega CV CARDIAC PET MYOCARDIAL 2020-08-17 13:57:40 Beth Jaramillo PERFUSION IMAGING CV STRESS TEST 2020-08-17 13:50:43 Beth Jaramillo Met tk NM HEPATOBILIARY W PHARM 2020-08-17 12:23:56 Stefan Payan Jermaine HC COMPLETE BLD COUNT 2020-08-17 05:00:00 [place] Major W/AUTO DIFF Gary BASIC METABOLIC PANEL 2020-08-17 04:00:00 [place] Majorist Gary ESTIMATED GFR 2020-08-17 04:00:00 [place] Major Meth odist Gary MAGNESIUM LEVEL 2020-08-17 04:00:00 [place] Major Meth odist Gary PHOSPHORUS LEVEL 2020-08-17 04:00:00 [place] Major Met hodandrzej Vega HC COMPLETE BLD COUNT 2020-08-16 04:45:00 [place] Major W/AUTO DIFF Gary COMPREHENSIVE METABOLIC 2020-08-16 04:00:00 [place] Major [place] PANEL Gary ESTIMATED GFR 2020-08-16 04:00:00 [place] Major odist Gary TROPONIN 2020-08-15 05:12:00 Stefan Payan Mn thodist Jermaine LACTIC ACID LEVEL 2020-08-15 05:12:00 Stefan Payan URINE CULTURE 2020-08-15 03:44:00 Stefan Payan Mn leobardoodist Dean URINALYSIS SCREEN AND 2020-08-15 03:44:00 Stefan Payan MICROSCOPY, WITH REFLEX TO Jermaine CULTURE TROPONIN 2020-08-15 01:47:00 Stefan Payan Mn thodist Jermaine LACTIC ACID LEVEL 2020-08-15 01:47:00 Stefan Payan COVID-19 QUALITATIVE PCR 2020-08-15 00:56:[address] RENAL STONE PROTOCOL 2020-08-15 00:47:52 Stefan Payan Jermaine ECG 12-LEAD 2020-08-14 23:43:10 Stefan Payan Mn thodist Jermaine US GALLBLADDER 2020-08-14 23:20:00 Stefan Payan thodist Jermaine COMPREHENSIVE METABOLIC 2020-08-14 22:49:00 Stefan Payan PANEL Jermaine LACTIC ACID LEVEL, SEPSIS 2020-08-14 22:49:00 Stefan Payan - NOW AND REPEAT 2X EVERY Jermaine 3 HOURS LIPASE LEVEL 2020-08-14 22:49:00 Stefan Payan Mn thodist Jermaine HC COMPLETE BLD COUNT 2020-08-14 22:49:00 Stefan Payan [place] W/AUTO DIFF Jermaine GGT 2020-08-14 22:49:00 Stefan Payan Mn nicholas Dean ESTIMATED GFR 2020-08-14 22:49:00 Stefan Payan Me thodi Jermaine TROPONIN 2020-08-14 22:49:00 Stefan Payan Mn nicholas Dean ECG ED PRELIMINARY 2020-08-14 22:44:32 Stefan Payan INTERPRETATION Jermaine Plan of Care Planned Activity Planned Date Details Comments Source Future Scheduled 2020-11-29 INFLUENZA VACCINE [place] [facility] Test 00:00:00 [code = INFLUENZA VACCINE] Future Scheduled 1997-12-28 COLONOSCOPY SCREENING [place] [facility] Test 00:00:00 [code = COLONOSCOPY SCREENING] Future Scheduled 1997-12-28 SHINGLES VACCINES (#1) [place] [facility] Test 00:00:00 [code = SHINGLES VACCINES (#1)] Future Scheduled 1965-12-28 Hepatitis C screening [place] [facility] Test 00:00:00 (procedure) [code = 521989087] Future Scheduled 1959 COVID-19 VACCINE (1) M[place]on [facility] Test 00:00:00 [code = COVID-19 VACCINE (1)] Future Scheduled 1953[birth year]12-28 65+ PNEUMOCOCCAL [place] [facility] Test 00:00:00 VACCINE (1 of 2 - PPSV23) [code = 65+ PNEUMOCOCCAL VACCINE (1 of 2 - PPSV23)] Encounters Start End Encounter Admission Attending Care Care Encounter Source Date/Time Date/Time Type Type Clinicians Facility Department ID 2020-10-16 2020-10-16 Outpatient [facility] [id number] 2020-10-05 2020-10-05 Outpatient [facility] [id number] 2020-09-08 2020-09-08 [id number] 2020-09-01 2020-09-01 [facility] [id number] [facility] 2020-08-25 2020-08-25 [facility] [id number] [facility] 2020-08-14 2020-08-20 Inpatient [facility] [id number] [place] [address] 00:00:00 00:00:[address] DAVID [address] 2020-08-19 2020-08-19 Out[facility] [id number] [facility] 2020-07-21 2020-07-21 Out[facility] [id number] [facility] 2020-05-26 2020-05-26 [facility] [id number] [facility] 2020-05-26 2020-05-26 [facility] [id number] [facility] 2020-02-19 2020-02-19 Out[facility] [id number] [facility] 2019-10-29 2019-10-29 [facility] [id number] 14:45:00 14:45:00 [facility] l Medicine Outpat[facility] ent Clinics 2019-10-18 2019-10-18 [facility] [id number] 15:54:00 15:54:00 [facility] Medicine l Medicine Outpati ent Clinics 2019-08-20 2019-08-20 [facility] [id number] 22:48:00 22:48:00 [facility] Medicine l Medicine Outpati ent Clinics 2019-08-20 2019-08-20 [facility] [id number] 13:00:00 13:00:00 [facility] Medicine Outpati ent Clinics 2019-08-13 2019-08-13 [facility] [id number] 15:02:00 15:02:00 [facility] Medicine Outpati ent Clinics 2019-06-28 2019-06-28 [facility] [id number] 14:00:00 14:00:00 [facility] Medicine Outpati ent Clinics 2019-06-04 2019-06-04 [facility] [id number] 10:30:00 10:30:00 [facility] Medicine Outpati ent Clinics 2019-05-21 2019-05-21 [facility] [id number] 14:30:00 14:30:00 [facility] Medicine Outpati ent Clinics 2019-03-20 2019-03-20 [facility] [id number] 14:00:00 14:00:00 [facility] Medicine Outpati ent Clinics Results Test Description Test Time Test Results Result Source Comments Comments Transthoracic 2020-07-31 Interface, Radiology [facility] Echocardiogram 0 Results In - Methodis t Complete, (w 11:44:00 08/18/2020 11:45 AM Contrast, Strain CDTFormatting of and 3D if needed) this note might be different from the original. Echocardiography Report [id number] [place] [address] Pat.Name: MICHAEL DIAS Pat.ID: [id number] .Date: 08/18/2020 Refer.MD: DAYTON MAJOR MDExchris Time: 4:54:00 AM Study Type:Routine Echo Height: 69in Weight: 212lb BSA: 2.12 m2 Age: 8 1945,74Y Sex: MALE BP: 157/62 HR: 59 bpm Sonogrphr: Amish Willis [facility] Pat. Stat.:Inpatient Room: E 864 Study Status:Final Echo Event ID:[id number] Order ID: [id number] Reason for Study:Ventricular Function - Routine surveillance [...] estimate PA systolic pressure. -----MEASUREMENTS:-- 2DParasternal [place] Ao An 2.2 cm LVPWd 1.5 cm [...] Comme nts Resting HR (test code = 4603529785) 52 Resting BP (test code = 4663425314) 148&67 Peak MET Achieved (test code = 0 3429271904) Protocol Name (test code = 9827162026) Lexiscan Time in Exercise Phase (test code = 00:01:00 6989825195) Max Systolic BP (test code = 160 8268132228) Max Diastolic BP (test code = 70 4316287719) Max Heart Rate (test code = 82 3006875301) Max Predicted Heart Rate (test code = 148 3099216480) Target HR Formula (test code = (220 - Age)*100% 7341881910) Test Indication (test code = Pre-Op Evaluation 8924205793) Arrhy During Ex (test code = 3532445249) ECG Interp Before EX (test code = 3917291140) ECG Interp During Ex (test code = 3284041845) Ex Summary Comment (test code = 2956619691) Overall HR Response to Exercise (test code = 6668782928) Overall BP Response To Exercise (test code = 8710927194) Reason for Termination (test code = Protocol Complete 2211003416) Stress Test Impression (test code = -Waveform interpreted in report 8220833889) associated with image study. No interpretation is provided as part of this Stress ECG report.-Electronically Signed By Jagjit DEL TORO, Darwin Rhodes ([id number]), deputy editor in chief Ysabel Bui ([id number]) on 08/18/2020 4:56:20 AM Cristopher Shaffer Cardiac PET Myocardial Perfusion [id number] 16:44:35 Interface, Radiology Results In - 08/17/2020 4:44 PM CDT See PDF file for full resultHoumauro Maldonado Hepatobiliary W Pharm (HIDA Scan w Pharm)2020-08-17 12:29:40Hm Interface, Radiology Results Incoming 08/17/2020 12:32 PM CDT Procedure: [facility]ON HEPATOBILIARY W PHARM (HIDA SCAN W PHARM)Clinical History:Biliary colic recurrent gallbladder dyskinesia suspectedTechnique:The patient was injected with 4 mCi of [id number] intravenously, followed by dynamic imaging of the [...] obstruction. 2. Normal gallbladder ejection fraction.[facility]-[id number] MethodandrzejECG 12 [id number] 08:57:11 Test Item Value Reference Range Interpretation Comments Ventricular rate (test 58 code = 253) Atrial rate (test code 58 = 255) AK interval (test code 146 = 266) QRSD [...] wave abnormality, improved in Lateral leads- Cristopher KayeUjqdhjpizHRCS-IgV-7 (COVID-19) RNA [Presence] in Respiratory specimen by AARON with probe [id number] 06:35:29 Test Item Value Reference Range Interpretation Comments SARS-CoV-2 (COVID-19) RNA Not detected Not-Detected [Presence] in Respiratory specimen by AARON with probe detection (test code = 72820-9) Urine [id number] 04:45:28 Test Item Value Reference Range Interpretation Comments Urine culture (test SEE COMMENT Bacteriu jos screen code = 3677301) negative. [place] MoravianMS Renal Stone [id number] 00:56:23Hm Interface, Radiology Results Incoming - 08/15/2020 [...] cho lecystitis.3. Sigmoid diverticulosis without diverticulitis.[facility]-[id number] [facility] [id number] 00:29:24Hm Interface, Radiology Results [facility] - 08/15/2020 12:32 AM CDTFormatting of this note might be di fferent from the original.EXAMINATION: US GALLBLADDERCLINICAL HISTORY: ; RUQ abd painCOMPARISON: None.IMPRESSION:Gallbladder is contracted, with gallstones in the lumen. No wall thickening or pericholecystic fluid.Common bile duct measures 0.66 cm, within normal limits for patient's age. No intrahepatic biliary ductal dilation.Main portal vein measures 1 cm and demonstrates expected hepatopedal flow.[id number] Preliminary Interpretation - Not an [id number] 22:44:32 Test Item Value Reference Range Interpretation Comments TYE (test code = TYE) Stefan Payan DO 08/15/2020 3:14 AMECG ED Preliminary Interpretation - Not an OrderPerformed by: Stefan Payan DOAuthorized by: Stefan Payan DO ECG reviewed by ED Physician in the absence of a drum sander setter: yes Interpretation: Interpretation: abnormal Rate: ECG rate: 58 ECG rate assessment: bradycardic Rhythm: Rhythm: sinus bradycardia Ectopy: Ectopy: none QRS: QRS axis: Normal QRS intervals: NormalConduction: Conduction: normal ST segments: ST segments: Non-specificT waves: T waves: normal Lab Interpretation Abnormal (test code = 00878-2) Cristopher Merrill
[2020-10-23 18:21] LABS: Urine Blood Negative (Negative); Urine Glucose Negative (Negative); Urine Protein Negative (Negative); Urine Specific Gravity 1.025 (1.005-1.030); Urine pH 5.5 (5.0-7.0)
--- NOTE | 2020-10-23 20:28 | RAD REPORT ---
EXAM DESCRIPTION: RAD - Chest Single View - 10/23/2020 8:20 pm CLINICAL HISTORY: edema Chest pain. COMPARISON: Chest Single View dated 09/07/2020; Chest Single View dated 03/05/2019; Chest Single View dated 06/15/2018; CHEST PA AND LAT 2 VIEW dated 06/01/2015 FINDINGS: Portable technique limits examination quality. The lungs are grossly clear. The heart is normal in size. No displaced fractures. IMPRESSION: No acute intrathoracic process suspected.
[2020-10-23 20:53] LABS: Absolute Lymphocytes (CBC) 1.8 K/uL (0.7-4.9); Basophils % 0.8 % (0-1.3); Hematocrit 37.3 % (39.6-49.0); Lymphocytes % 22.4 % (15.3-44.8); MPV 8.4 fL (7.6-11.3); RBC Red Blood Cell Count 4.37 M/uL (4.33-5.43)
[2020-10-23 20:54] LABS: Protime INR 1.07
[2020-10-23 21:07] LABS: ALT/SGPT 24 U/L (12-78); AST/SGOT 17 U/L (15-37); Albumin 3.7 g/dL (3.4-5.0); Alkaline Phosphatase 106 U/L (45-117); BUN Blood Urea Nitrogen 16 mg/dL (7-18); Bicarbonate 30 mmol/L (21-32); Bilirubin Direct 0.1 mg/dL (0-0.2); Bilirubin Total 0.5 mg/dL (0.2-1.0); Glucose Level 84 mg/dL (74-106); Magnesium 2.4 mg/dL (1.8-2.4); NT PRO-BNP 827 pg/mL (<125); Potassium 3.7 mmol/L (3.5-5.1); Protein, Total 7.6 g/dL (6.4-8.2); Sodium Level 143 mmol/L (136-145); Troponin (Emerg Dept Use Only) < 0.02 ng/mL (0.0-0.045)
--- NOTE | 2020-10-23 21:10 | RAD REPORT ---
EXAM DESCRIPTION: US - Extrem Venous W Compress Pancho - 10/23/2020 8:58 pm CLINICAL HISTORY: SWELLING Bilateral leg edema and swelling. COMPARISON: <Comparisons> TECHNIQUE: Real-time sonographic interrogation of the left and right lower extremity deep venous sys tems was performed. FINDINGS: Normal compressibility, flow augmentation, phasic flow and spontaneous flow is identified in both the left and right lower extremity deep venous systems. IMPRESSION: No sonographic evidence of left or right lower extremity deep venous thrombosis.
--- NOTE | 2020-10-23 21:34 | ER ---
Nurse's Notes [facility] Name: Zelalem Mendiola Age: 74 yrs Sex: Male : 1945 Arrival Date: 10/23/2020 Time: 15:37 Bed 6 Private MD: Dwight Tate Diagnosis: Bradycardia, unspecified;Unspecified combined systolic (congestive) and diastolic (congestive) heart failure Presentation: 10/23 17:18 Chief complaint: Patient states: Feet swelling starting Monday and unable to empty kg bladder for several days. Coronavirus screen: Client denies travel out of the [place] in the last 14 days. At this time, unable to obtain information related to travel outside the [place] At this time, the client does not indicate any symptoms associated with coronavirus-19. Ebola Screen: Patient negative for fever greater than or equal to 101.5 degrees Fahrenheit, and additional compatible Ebola Virus Disease symptoms Patient denies exposure to infectious person. Patient denies travel to an Ebola-affected area in the 21 days before illness onset. Initial Sepsis Screen: Does the patient meet any 2 criteria? No. Patient's initial sepsis screen is negative. Does the patient have a suspected source of infection? No. Patient's initial sepsis screen is negative. Risk Assessment: Do you want to hurt yourself or someone else? Patient reports no desire to harm self or others. Onset of symptoms was October 20, 2020. 17:18 Method Of Arrival: Wheelchair kg 17:18 Acuity: PADMAJA 3 kg Triage Assessment: 17:22 General: Appears in no apparent distress. Behavior is calm, cooperative, appropriate kg for age, quiet. Pain: Denies pain. Historical: - Allergies: 17:24 NKDA; kg - Home Meds: 17:26 metoprolol tartrate 25 mg Oral tab 1 tab 2 times per day [Active]; lisinopril 10 mg kg Oral tab 1 tab once daily [Active]; atorvastatin 40 mg Oral tab 1 tab once daily [Active]; donepezil 5 mg Oral TbDL 1 tab once daily [Active]; clopidogrel 75 mg Oral tab 1 tab once daily [Active]; furosemide 20 mg Oral tab MONDAY AND MONDAY [Active]; folic acid 1 mg Oral tab 1 tab once daily [Active]; aspirin 81 mg Oral chew 1 tab once daily [Active]; isosorbide 60 mg daily [Active]; - PMHx: 17:24 cardiac stent; Dementia; Hypertension; Myocardial infarction; Hyperlipidemia; Cataracts;kg - Immunization history:: Adult Immunizations up to date, Client reports having NOT received the Covid vaccine. - Social history:: Smoking status: Patient reports the use of cigarette tobacco products, smokes one-half pack cigarettes per day. Screenin:21 Abuse screen: Denies threats or abuse. Denies injuries from another. Nutritional kg screening: No deficits noted. Tuberculosis screening: No symptoms or risk factors identified. Fall Risk Fall in past 12 months (25 points). No secondary diagnosis (0 pts). No IV (0 pts). Ambulatory Aid- Crutches/Cane/Walker (15 pts). Gait- Impaired (20 pts.). Mental Status- Oriented to own ability (0 pts). Total Snow Fall Scale indicates No Risk (0-24 pts). Assessment: 20:00 General: Appears in no apparent distress. Behavior is calm, cooperative. Neuro: Level bb of Consciousness is awake, alert, obeys commands, Oriented to person, place, situation. Cardiovascular: Capillary refill < 3 seconds Patient's skin is warm and dry. Rhythm is junctional rhythm. Cardiovascular: Edema is 2+ to left ankle, left foot, right ankle and right foot. Respiratory: Respiratory effort is even, unlabored, Respiratory pattern is regular. GI: No signs and/or symptoms were reported involving the gastrointestinal system. : Reports not being able to urinate normally. Derm: Skin is pale. Musculoskeletal: Capillary refill < 3 seconds. 21:43 Reassessment: No changes from previously documented assessment. Patient is alert, bb oriented x 3, equal unlabored respirations, skin warm/dry/pink. Jim Daly BRADDISHER at bedside for discussion of findings and recommendations pt to be admitted pt and family verbalized understanding of and agrees to plan of care. 22:28 Reassessment: Patient is alert, oriented x 3, equal unlabored respirations, skin bb warm/dry/pink. awaiting room assignment, family at bedside. 23:35 Reassessment: Patient and/or family updated on plan of care and expected duration. Pain ea level reassessed. Patient is alert, oriented x 3, equal unlabored respirations, skin warm/dry/pink. 23:56 Reassessment: report called to Larry SHARP for room 401. bb Vital Signs: 17:18 BP 119 / 56; Pulse 48; Resp 18; Temp 98.2(O); Pulse Ox 96% on R/A; Weight 74.84 kg (R); kg Height 5 ft. 9 in. (175.26 cm); Pain 0/10; 20:30 BP 148 / 72; Pulse 41; Resp 16 S; Pulse Ox 97% on R/A; bb 22:28 BP 169 / 79; Pulse 55; Resp 14 S; Pulse Ox 97% on R/A; bb 23:35 BP 152 / 81; Pulse 55; Resp 16; Pulse Ox 98% ; ea 23:50 Temp 97.2(TE); bb 17:18 Body Mass Index 24.37 (74.84 kg, 175.26 cm) kg ED Course: 15:37 Patient arrived in ED. am2 15:38 Dwight Tate DO is Private Physician. am2 17:21 Triage completed. kg 17:22 Arm band placed on right wrist. kg 17:26 Patient has correct armband on for positive identification. kg 19:19 Hung Walters PA is PHCP. cp 19:19 Bean Rocha MD is Attending Physician. cp 20:20 XRAY Chest (1 view) In Process Unspecified. EDMS 20:30 Initial lab(s) drawn, by me, sent to lab. Inserted saline lock: 20 gauge in right bb antecubital area, using aseptic technique. Blood collected. 20:57 Fina Lawrence, RN is Primary Nurse. bb 20:57 US Extremity Venous W Compression Pancho Sent. bb 20:58 US Extremity Venous W Compression Pancho In Process Unspecified. EDMS 21:33 Thee Hollingsworth DO is Hospitalizing Provider. cp 21:42 Bladder scan completed. 25 mLs. bb 21:44 No provider procedures requiring assistance completed. Patient admitted, IV remains in bb place. Administered Medications: 21:42 Drug: Lasix (furosemide) 20 mg Route: IVP; Site: right antecubital; bb 22:29 Follow up: Response: No adverse reaction bb Output: 23:12 Urine: 625ml (Voided); Total: 625ml. bb Outcome: 21:34 Decision to Hospitalize by Provider. cp 21:44 Instructed on the need for admit. bb 22:29 Condition: stable bb 23:56 Admitted to Tele accompanied by tech, via stretcher, room 401, with chart, Report bb called to Larry SHARP 10/24 00:14 Patient left the ED. bharat Signatures: Dispatcher [employer] Fina Domínguez RN RN Hung Olsen, Fany Smiley cp, Elena RN RN Colette Preciado RN RN kg
--- NOTE | 2020-10-23 21:35 | EDPHYS ---
Physician Documentation [facility] Name: Zelalem Mendiola Age: 74 yrs Sex: Male : 1945 Arrival Date: 10/23/2020 Time: 15:37 Bed 6 Private MD: [facility] ED Physician Bean Rocha HPI: 10/23 19:40 This 74 yrs old Male presents to ER via Wheelchair with complaints of Urinary cp Retention, Leg Swelling. 19:40 The patient presents with swelling. cp 19:40 The complaints affect the right foot and left foot. Context: resulted from an unknown cp cause, the patient can fully bear weight, the patient is able to ambulate, with mild difficulty. Onset: The symptoms/episode began/occurred gradually. Associated signs and symptoms: Pertinent negatives calf tenderness, fever, warmth. Treatment prior to arrival includes: no previous treatment. Historical: - Allergies: 17:24 NKDA; kg - Home Meds: 17:26 metoprolol tartrate 25 mg Oral tab 1 tab 2 times per day [Active]; lisinopril 10 mg kg Oral tab 1 tab once daily [Active]; atorvastatin 40 mg Oral tab 1 tab once daily [Active]; donepezil 5 mg Oral TbDL 1 tab once daily [Active]; clopidogrel 75 mg Oral tab 1 tab once daily [Active]; furosemide 20 mg Oral tab MONDAY AND MONDAY [Active]; folic acid 1 mg Oral tab 1 tab once daily [Active]; aspirin 81 mg Oral chew 1 tab once daily [Active]; isosorbide 60 mg daily [Active]; - PMHx: 17:24 cardiac stent; Dementia; Hypertension; Myocardial infarction; Hyperlipidemia; Cataracts;kg - Immunization history:: Adult Immunizations up to date, Client reports having NOT received the Covid vaccine. - Social history:: Smoking status: Patient reports the use of cigarette tobacco products, smokes one-half pack cigarettes per day. ROS: 19:40 Constitutional: Negative for body aches, chills, fever, poor PO intake. cp 19:40 Eyes: Negative for injury, pain, redness, and discharge. cp 19:40 ENT: Negative for ear pain, sore throat, difficulty swallowing, difficulty handling secretions. 19:40 Cardiovascular: Positive for edema, Negative for chest pain, palpitations. 19:40 Respiratory: Negative for cough, shortness of breath, wheezing. 19:40 Abdomen/GI: Negative for abdominal pain, nausea, vomiting, and diarrhea, black/tarry stool, rectal bleeding. 19:40 Neuro: Negative for altered mental status, headache, syncope, weakness. 19:40 : Positive for difficulty urinating, Negative for hematuria, flank pain, burning with cp urination, bladder incontinence. 19:40 All other systems are negative. cp Exam: 19:45 Constitutional: The patient appears in no acute distress, alert, awake, cp non-diaphoretic, non-toxic, well developed, well nourished. 19:45 Head/Face: Normocephalic, atraumatic. cp 19:45 Eyes: Periorbital structures: appear normal, Pupils: equal, round, and reactive to light and accomodation, Extraocular movements: intact throughout, Conjunctiva: normal, no exudate, no injection, Sclera: no appreciated abnormality, Lids and lashes: appear normal, bilaterally. 19:45 ENT: External ear(s): are unremarkable, Nose: is normal, Mouth: Lips: moist, Oral mucosa: moist, Posterior pharynx: Airway: no evidence of obstruction, patent. 19:45 Neck: ROM/movement: is normal, is supple, without pain, no range of motions limitations. 19:45 Chest/axilla: Inspection: normal, Palpation: is normal, no crepitus, no tenderness. 19:45 Cardiovascular: Rate: bradycardic, Rhythm: regular, Edema: pedal edema, that is mild, ankle edema, that is mild, JVD: is not appreciated. 19:45 Respiratory: the patient does not display signs of respiratory distress, Respirations: normal, no use of accessory muscles, no retractions, labored breathing, is not present, Breath sounds: are clear throughout, no decreased breath sounds, no stridor, no wheezing. 19:45 Abdomen/GI: Inspection: abdomen appears normal, Palpation: abdomen is soft and non-tender, in all quadrants. 19:45 Back: pain, is absent, ROM is normal. 19:45 Skin: cellulitis, is not appreciated, no rash present. 19:45 Neuro: Orientation: to person, place \\T\\ time. Mentation: is normal, Motor: moves all fours, strength is normal. 20:33 ECG was reviewed by the Attending Physician. cp Vital Signs: 17:18 BP 119 / 56; Pulse 48; Resp 18; Temp 98.2(O); Pulse Ox 96% on R/A; Weight 74.84 kg (R); kg Height 5 ft. 9 in. (175.26 cm); Pain 0/10; 20:30 BP 148 / 72; Pulse 41; Resp 16 S; Pulse Ox 97% on R/A; bb 22:28 BP 169 / 79; Pulse 55; Resp 14 S; Pulse Ox 97% on R/A; bb 23:35 BP 152 / 81; Pulse 55; Resp 16; Pulse Ox 98% ; ea 23:50 Temp 97.2(TE); bb 17:18 Body Mass Index 24.37 (74.84 kg, 175.26 cm) kg MDM: 19:40 Patient medically screened. cp 20:00 Differential diagnosis: DVT, cellulitis, CHF. cp 21:20 Data reviewed: vital signs, nurses notes, lab test result(s), EKG, radiologic studies, cp plain films, ultrasound. 21:20 Test interpretation: by ED physician or midlevel provider: ECG, plain radiologic cp studies. Physician consultation: Jim SWARTZ was contacted at 21:20, regarding admission, to the telemetry unit. patient's condition. 10/23 18:21 Order name: Urine Dipstick-Ancillary; Complete Time: 19:40 EDSD 10/23 19:42 Order name: Basic Metabolic Panel; Complete Time: 21:08 10/23 21:16 Interpretation: Normal except: CL 108; CRE 1.38; GFR 51. 10/23 19:42 Order name: CBC with Diff; Complete Time: 21:03 10/23 21:03 Interpretation: Normal except: HGB 13.0; HCT 37.3. 10/23 19:42 Order name: LFT's; Complete Time: 21:16 10/23 19:42 Order name: Magnesium; Complete Time: 21:16 cp 10/23 19:42 Order name: NT PRO-BNP; Complete Time: 21:16 10/23 19:42 Order name: PT-INR; Complete Time: 21:03 10/23 19:42 Order name: Troponin (emerg Dept Use Only); Complete Time: 21:16 cp 10/23 19:42 Order name: XRAY Chest (1 view); Complete Time: 21:03 cp 10/23 21:04 Interpretation: Report review. 10/23 19:42 Order name: US Extremity Venous W Compression Pancho; Complete Time: 21:16 cp 10/23 21:51 Order name: COVID-19 : Document "Date of Symptom Onset" if Symptomatic. [email or web address] 10/23 22:57 Order name: SARS-COV-2 RT PCR EDSD 10/23 23:49 Order name: Urine Dipstick-Ancillary EDSD 10/23 19:42 Order name: EKG; Complete Time: 19:42 cp 10/23 19:42 Order name: Cardiac monitoring; Complete Time: 20:57 cp 10/23 19:42 Order name: EKG - Nurse/Tech; Complete Time: 20:57 cp 10/23 19:42 Order name: IV Saline Lock; Complete Time: 20:57 cp 10/23 19:42 Order name: Labs collected and sent; Complete Time: 20:57 cp 10/23 19:42 Order name: O2 Per Protocol; Complete Time: 20:57 cp 10/23 19:42 Order name: O2 Sat Monitoring; Complete Time: 20:57 cp 10/23 19:42 Order name: Bladder Scanner: pre and post void; Complete Time: 21:42 cp EC:33 Rate is 47 beats/min. Rhythm is regular. QRS interval is normal. QT interval is normal. cp T waves are Inverted in leads aVR, V4. Interpreted by me. Reviewed by me. Administered Medications: 21:42 Drug: Lasix (furosemide) 20 mg Route: IVP; Site: right antecubital; kiran 22:29 Follow up: Response: No adverse reaction bb Disposition: 10/24 06:41 Co-signature as Attending Physician, Bean Rocha MD. [email or web address] Disposition: 10/23/20 21:34 Hospitalization ordered by Thee Hollingsworth for Observation. Preliminary diagnosis are Bradycardia, unspecified, Unspecified combined systolic (congestive) and diastolic (congestive) heart failure. - Bed requested for Telemetry/MedSurg (observation). - Status is Observation. ea - Condition is Stable. - Problem is new. - Symptoms are unchanged. Signatures: Dispatcher [employer] EDFina Garsia RN RN bb Jim Wynn, STAGECRAFT PROFESSOR-C STAGECRAFT PROFESSOR-Cla1 Hung Walters, PA PA cp Rocio Velázquez, RN LILA ea Bean Rocha MD MD [facility] Briana Richardson, RN RN rd1 Colette Moreno RN RN kg Corrections: (The following items were deleted from the chart) 10/23 23:23 21:34 Hospitalization Ordered by Thee Hollingsworth DO for Observation. Preliminary rd1 diagnosis is Bradycardia, unspecified; Unspecified combined systolic (congestive) and diastolic (congestive) heart failure. Bed requested for Telemetry/MedSurg (observation). Status is Observation. Condition is Stable. Problem is new. Symptoms are unchanged. cp 10/24 00:14 10/23 23:23 10/23/2020 21:34 Hospitalization Ordered by Thee Hollingsworth DO for ea Observation. Preliminary diagnosis is Bradycardia, unspecified; Unspecified combined systolic (congestive) and diastolic (congestive) heart failure. Bed requested for Telemetry/MedSurg (observation). Status is Observation. Condition is Stable. Problem is new. Symptoms are unchanged. rd1 10/24 20:49 10/23 19:40 All other systems are negative, cp cp
[2020-10-23] MEDS ORDERED: FUROSEMIDE 20 MG/ 2ML VIAL ONE (21:46)
--- NOTE | 2020-10-23 22:09 | P.HP ---
Certification for Inpatient Patient admitted to: Observation With expected LOS: <2 Midnights Patient will require the following post-hospital care: None Practitioner: I am a practitioner with admitting privileges, knowledge of patient current condition, hospital course, and medical plan of care. Services: Services provided to patient in accordance with Admission requirements found in Title 42 Section 412.3 of the Code of Federal Regulations Patient History Date of Service: 10/23/20 Primary Care Provider: Dr. Tate, cardiology Dr. Medina Reason for admission: Bradycardia, CHF exacerbation History of Present Illness: 74-year-old male with history of the chronic systolic congestive heart failure, hypertension, hyperlipidemia, CAD, COPD, dementia presents emergency department for lower extremity edema. Patient family reports the edema as well with the course of the last week or so. Patient evaluated in the emergency department, labs significant for creatinine 1.38 GFR 51 BNP 127 chest x-ray unremarkable, patient noted to have bradycardia and junctional rhythm with a rate of around 41. Patient asymptomatic at this time without any chest pain, dizziness, lightheadedness, syncope. ED provider wishes to admit under observation for bradycardia, acute on chronic systolic congestive heart failure. Allergies No Known Allergies Allergy (Verified 11/11/19 12:19) Home Medications: Albuterol Sulfate [Proair Hfa] 2 puff IH TID PRN #1 [email or web address] 03/08/19 Aspirin Chewable [Aspirin Chewable*] 81 mg PO DAILY #90 tab.chew 03/08/19 Atorvastatin Calcium [Lipitor] 40 mg PO BEDTIME #30 tab 03/08/19 Clopidogrel Bisulfate [Plavix*] 75 mg PO DAILY #30 tablet 03/08/19 Docosahexanoic AC/Epa [Fish Oil 1,000 MG*] 2,000 mg PO BID #120 cap 03/08/19 Folic Acid 1 mg PO DAILY #90 tablet 03/08/19 Mometasone/Formoterol [Dulera 100 Mcg/5 Mcg Inhaler] 2 puff IH BID #1 inhaler 03/08/19 carvediloL [Coreg] 6.25 mg PO BID #60 tab 03/08/19 lisinopriL [Prinivil*] 10 mg PO BEDTIME #30 tab 03/08/19 - Past Medical/Surgical History Diabetic: No -: Chronic systolic congestive heart failure-EF 35% -: CKD 3 -: Hypertension -: Hyperlipidemia -: CAD with stenting to the LAD -: Dementia -: Tobacco abuse -: davide cataract removal -: davide lens replacement -: lasix Psychosocial/ Personal History: Disabled, lives with family - Family History Mother -: Lung disease - Social History Smoking Status: Current some day smoker Alcohol use: No CD- Drugs: No Caffeine use: Yes Place of Residence: Home Review of Systems 10-point ROS is otherwise unremarkable Respiratory: Shortness of Breath Cardiovascular: Edema, As per HPI Physical Examination - Physical Exam General: Alert, In no apparent distress, Oriented x2 HEENT: Atraumatic, PERRLA, Mucous membr. moist/pink Neck: Supple, 2+ carotid pulse no bruit, No LAD Respiratory: Clear to auscultation bilaterally, Normal air movement Cardiovascular: Regular rate/rhythm, Normal S1 S2 Gastrointestinal: Normal bowel sounds, No tenderness Musculoskeletal: No tenderness Integumentary: No rashes Neurological: Normal speech, Normal strength at 5/5 x4 extr, Normal tone, Normal affect Lymphatics: No axilla or inguinal lymphadenopathy - Studies Laboratory Data (last 24 hrs) 10/23/20 20:30: PT 12.3, INR 1.07 10/23/20 20:30: WBC 8.20, Hgb 13.0 L, Hct 37.3 L, Plt Count 210 10/23/20 20:30: Sodium 143, Potassium 3.7, BUN 16, Creatinine 1.38 H, Glucose 84, Magnesium 2.4, Total Bilirubin 0.5, AST 17, ALT 24, Alkaline Phosphatase 106 Assessment and Plan - Plan Assessment New onset junctional rhythm/bradycardia Acute on chronic systolic congestive heart failure CAD S/P stents CKD 3 Hypertension Hyperlipidemia Dementia Plan New onset junctional rhythm/bradycardia: Monitor on telemetry, patient heart rate around 41 but asymptomatic at this time without any chest pain, dizziness, lightheadedness, syncope. Will hold patient's beta-blockers, consult cardiology. DVT prophylaxis Lovenox 40 mg subcutaneously daily. Acute on chronic systolic congestive heart failure: Will gently increase patient's diuretic with Lasix 20 mg IV b.i.d., cardiology consulted, may need to be adjusted at discharge. CAD S/P stents: Stable continue home meds CKD 3: Renal function stable in comparison to previous, continue home medications, adjust as necessary. consult nephrology as necessary. Hypertension: Continue home medications Hyperlipidemia: Continue home medications Dementia: Stable. Discharge Plan: Home Plan to discharge in: 24 Hours - Advance Directives Does patient have a Living Will: No Does patient have a Durable POA for Healthcare: No - Code Status/Comfort Care Code Status Assessed: Yes (Full code) Critical Care: No Time Spent Managing Pts Care (In Minutes): 55
[2020-10-23 23:49] LABS: Urine Blood Negative (Negative); Urine Glucose Negative (Negative); Urine Protein Negative (Negative); Urine Specific Gravity 1.015 (1.005-1.030)
[2020-10-24] MEDS ORDERED: ONDANSETRON 4 MG/2 ML VIAL IV PRN (00:28)
[2020-10-24 02:02] VITALS: O2SAT 97; BMI 30.2
--- NOTE | 2020-10-24 06:14 | P.PN ---
Subjective Date of Service: 10/24/20 Primary Care Provider: Dr. Tate, cardiology Dr. Medina Chief Complaint: Bradycardia, CHF exacerbation Subjective: Improving, Doing well Physical Examination - Vital Signs Temperature: 97.0 F Blood Pressure: 151/67 Pulse: 50 Respirations: 16 Pulse Ox (%): 96 - Studies Laboratory Data (last 24 hrs) 10/23/20 20:30: PT 12.3, INR 1.07 10/23/20 20:30: WBC 8.20, Hgb 13.0 L, Hct 37.3 L, Plt Count 210 10/23/20 20:30: Sodium 143, Potassium 3.7, BUN 16, Creatinine 1.38 H, Glucose 84, Magnesium 2.4, Total Bilirubin 0.5, AST 17, ALT 24, Alkaline Phosphatase 106 Assessment & Plan Discharge Plan: Home Plan to discharge in: 24 Hours Physician Review Additional Text: Physical Exam: General: Alert, In no apparent distress, Oriented x2 HEENT: Atraumatic, PERRLA, Mucous membr. moist/pink Neck: Supple, 2+ carotid pulse no bruit, No LAD Respiratory: Clear to auscultation bilaterally, Normal air movement Cardiovascular: Regular rate/rhythm, Normal S1 S2 Gastrointestinal: Normal bowel sounds, No tenderness Musculoskeletal: No tenderness Integumentary: No rashes Neurological: Normal speech, Normal strength at 5/5 x4 extr, Normal tone, Normal affect Lymphatics: No axilla or inguinal lymphadenopathy Impression: Bradycardia Acute on chronic systolic congestive heart failure with EF around 31% CAD S/P stents CKD 3 Hypertension Hyperlipidemia Dementia Plan Bradycardia: Patient has done well. Patient seen and evaluated by cardiology. Cardiology recommends to discontinue metoprolol. Patient will need to continue with Lasix and fluid restriction at home. Patient with prior LAD stent perform ed in March. Patient with ejection fraction of 31%. Patient will be discharged home with changes to his medication. Acute on chronic systolic congestive heart failure with EF around 31%: Spoke with cardiology. Cardiology recommends to increase Lasix. 1500 cc. Fluid restriction will need to be enforced at home. CAD S/P stents: Stable continue home meds CKD 3: Renal function stable in comparison to previous, continue home medications, adjust as necessary. consult nephrology as necessary. Hypertension: Medications have been adjusted Hyperlipidemia: Continue home medications Dementia: Stable. Code Status: Full code DVT Prophylaxis: Lovenox Advanced care planning 30 min: Home at DC Time Spent Managing Pts Care (In Minutes): 55
--- NOTE | 2020-10-24 06:57 | EKG ---
Test Date: 2020-10-23 Test Time: 20:26:54 Bail Bondsman: PALOMO MEASUREMENT RESULTS: Intervals: Rate: 47 TN: QRSD: 100 QT: 494 QTc: 437 [place]: P: TN: QRS: -10 T: 11 INTERPRETIVE STATEMENTS: Junctional rhythm with occasional premature ventricular complexes Cannot rule out Anterior infarct, age undetermined Abnormal ECG Compared to ECG 09/07/2020 01:49:22 Junctional rhythm now present Ventricular premature complex(es) now present Myocardial infarct finding now present Sinus rhythm no longer present Sinus arrhythmia no longer present ST (T wave) deviation no longer present Electronically Signed On 10-24-20 06:56:14 CDT by Willy Medina
[2020-10-24 07:01] LABS: Urine Appearance CLEAR (Clear); Urine Bilirubin NEGATIVE (Negative); Urine Blood NEGATIVE (Negative); Urine Color YELLOW (Yellow); Urine Glucose NEGATIVE (Negative); Urine Protein NEGATIVE (Negative); Urine Urobilinogen 0.2 mg/dL (0.2-1.0)
[2020-10-24 07:04] LABS: Basophils % 0.6 % (0-1.3); Hematocrit 37.3 % (39.6-49.0); Lymphocytes % 25.8 % (15.3-44.8); MPV 8.4 fL (7.6-11.3); RBC Red Blood Cell Count 4.38 M/uL (4.33-5.43)
[2020-10-24 07:38] LABS: Albumin 3.7 g/dL (3.4-5.0); Bilirubin Total 0.5 mg/dL (0.2-1.0); Magnesium 2.2 mg/dL (1.8-2.4); Potassium 3.4 mmol/L (3.5-5.1); Protein, Total 7.6 g/dL (6.4-8.2)
[2020-10-24 07:43] LABS: Thyroid Stimulating Hormone 3.92 uIU/mL (0.360-3.740)
[2020-10-24 07:49] LABS: Urine Microscopic Reflex NO UMIC
--- NOTE | 2020-10-24 08:49 | P.DS ---
Admission Date: 10/23/20 Discharge Date: 10/24/20 Primary Care Provider: Dr. Tate, Cardiology Dr. Medina Disposition: ROUTINE DISCHARGE Discharge Condition: GOOD Reason for Admission: Bradycardia, CHF exacerbation Consultations: Cardiology-Dr. Medina Procedures: Venous Doppler: FINDINGS: Normal compressibility, flow augmentation, phasic flow and sponta neous flow is identified in both the left and right lower extremity deep venous systems. IMPRESSION: No sonographic evidence of left or right lower extremity deep venous thrombosis. CXR: COMPARISON: Chest Single View dated 09/07/2020; Chest Single View dated 03/05/2019; Chest Single View dated 06/15/2018; CHEST PA AND LAT 2 VIEW dated 06/01/2015 FINDINGS: Portable technique limits examination quality. The lungs are grossly clear. The heart is normal in size. No displaced fractures. IMPRESSION: No acute intrathoracic process suspected. Medical problem list: Bradycardia Acute on Chronic systolic congestive heart failure with EF around 31% CAD S/P stents CKD 3 Hypertension Mixed hyperlipidemia Dementia COPD Brief History of Present Illness: 74-year-old male with history of the chronic systolic congestive heart failure, hypertension, hyperlipidemia, CAD, COPD, dementia presents emergency department for lower extremity edema. Family reports edema to the lower extremities. Patient found to have bradycardia with a rate of 41. Patient was asymptomatic. Patient was admitted for observation. Hospital Course: Patient presented with edema to the lower extremity. Patient also found to have bradycardia. Patient was admitted for treatment. Patient with underlying hi story of chronic systolic CHF with EF around 31%, CAD with prior stent to the LAD, chronic renal disease stage III, hypertension, hyperlipidemia, and dementia. During the hospitalization his beta-mateus medication was discontinued. Patient was given some diuresis for mild acute on chronic systolic CHF. Venous Doppler to the lower extremity negative. Chest x-ray unremarkable. Patient was seen and evaluated by cardiology. Cardiology recommends to discontinue beta-mateus therapymetoprolol at home due to bradycardia. Patient will need to continue with diuretic therapy and HEATH inhibitor. At discharge the patient will continue with aspirin 80 mg daily, Plavix 75 mg daily, lisinopril 10 mg 1 pill twice daily, Lipitor 40 mg daily, and Lasix 40 mg daily. Patient will continue with the 1500 cc/day fluid restriction and low-salt diet. Recommend to monitor his weight daily. If his weight increases by more than 5 pounds he is to contact his PCP or cardiology for further recommendation. Further adjustment in medication may be required. This can be done with the help of his PCP or cardiology. Recommend follow-up with PCP in 1 week. Recommend follow-up with cardiology in 1 to 2 weeks to follow-up hospitalization. Education on CHF, hypertension and bradycardia will be provided. Patient with CAD with prior LAD stent in March. Patient with ejection fraction of 31% with underlying systolic CHF. Continue with above recommendations. At discharge patient will continue with aspirin 81 mg daily, Plavix 25 mg daily and isosorbide mononitrate ER 60 mg daily. Patient will continue with his current medications as above. Patient with hyperlipidemia. At discharge patient will continue with Lipitor 40 mg daily. Will recommend to add fish oil 1000 mg 1 pill twice daily. Recommend to recheck fasting lipid panel in 4 to 6 weeks to monitor his progress. Patient with chronic renal disease stage III. This appears stable at this time. Recommend no further use of nonsteroidal anti-inflammatories. Future medications will need to be renally dosed. Patient would benefit with nephrology evaluation as an outpatient. This can be done with the help of his PCP. Patient with hypertension. As recommended above patient will be taken off his beta-mateus therapymetoprolol. Patient will continue with lisinopril but will increase to 10 mg 1 pill twice daily. Recommend to maintain blood pressure less than 130/80. Further adjustment can be done by his PCP. Patient with underlying dementia. Patient will continue with Aricept 5 mg daily and folic acid 1 mg daily. This can be followed up as an outpatient. Patient with COPD. At discharge patient will continue with Dulera 2 puffs twice daily and albuterol 2 puffs 3 times a day as needed for shortness of breath. Vital Signs/Physical Exam: Temp Pulse Resp BP Pulse Ox 97.0 F 50 16 151/67 H 96 10/24/20 08:47 10/24/20 08:47 10/24/20 08:47 10/24/20 08:47 10/24/20 08:47 General: Alert, In no apparent distress, Demented HEENT: Atraumatic Neck: Supple Respiratory: Clear to auscultation bilaterally, Normal air movement Cardiovascular: Normal pulses, Regular rate/rhythm Gastrointestinal: Normal bowel sounds, No tenderness, No masses, No rebound, No guarding Musculoskeletal: No erythema, No tenderness, No warmth Integumentary: No tenderness/swelling Neurological: Normal speech, Normal strength at 5/5 x4 extr, Normal tone, Dementia Laboratory Data at Discharge: WBC 7.90 K/uL (4.3-10.9) 10/24/20 06:53 Hgb 13.0 g/dL (13.6-17.9) L 10/24/20 06:53 Hct 37.3 % (39.6-49.0) L 10/24/20 06:53 Plt Count 207 K/uL (152-406) 10/24/20 06:53 PT 12.3 SECONDS (9.5-12.5) 10/23/20 20:30 INR 1.07 10/23/20 20:30 Sodium 142 mmol/L (136-145) 10/24/20 06:53 Potassium 3.4 mmol/L (3.5-5.1) L 10/24/20 06:53 BUN 13 mg/dL (7-18) 10/24/20 06:53 Creatinine 1.23 mg/dL (0.55-1.3) 10/24/20 06:53 Glucose 97 mg/dL (74-106) 10/24/20 06:53 Magnesium 2.2 mg/dL (1.8-2.4) 10/24/20 06:53 Total Bilirubin 0.5 mg/dL (0.2-1.0) 10/24/20 06:53 AST 18 U/L (15-37) 10/24/20 06:53 ALT 24 U/L (12-78) 10/24/20 06:53 Alkaline Phosphatase 107 U/L (45-117) 10/24/20 06:53 Triglycerides 228 mg/dL (<150) H 10/24/20 06:53 Cholesterol 137 mg/dL (<200) 10/24/20 06:53 HDL Cholesterol 35 mg/dL (40-60) L 10/24/20 06:53 Cholesterol/HDL Ratio 3.91 10/24/20 06:53 Home Medications: Albuterol Sulfate [Proair Hfa] 2 puff IH TID PRN #1 hfa.aer.ad 03/08/19 Aspirin Chewable [Aspirin Chewable*] 81 mg PO DAILY #90 tab.chew 03/08/19 Atorvastatin Calcium [Lipitor] 40 mg PO BEDTIME #30 tab 03/08/19 Clopidogrel Bisulfate [Plavix*] 75 mg PO DAILY #30 tablet 03/08/19 Folic Acid 1 mg PO DAILY #90 tablet 03/08/19 Mometasone/Formoterol [Dulera 100 Mcg/5 Mcg Inhaler] 2 puff IH BID #1 inhaler 03/08/19 Docosahexanoic AC/Epa [Fish Oil 1,000 MG*] 1,000 mg PO BID #60 cap 10/24/20 Donepezil HCl 5 mg PO DAILY 10/24/20 Furosemide [Lasix*] 40 mg PO DAILY #30 tab 10/24/20 Isosorbide Mononitrate [Isosorbide Mononitrate ER] 60 mg PO DAILY 10/24/20 lisinopriL [Prinivil*] 10 mg PO BID #60 tab 10/24/20 New Medications: Docosahexanoic AC/Epa [Fish Oil 1,000 MG*] 1,000 mg PO BID #60 cap Furosemide [Lasix*] 40 mg PO DAILY #30 tab lisinopriL [Prinivil*] 10 mg PO BID #60 tab Physician Discharge Instructions: Patient presented with edema to the lower extremity. Patient also found to have bradycardia. Patient was admitted for treatment. Patient with underlying history of chronic systolic CHF with EF around 31%, CAD with prior stent to the LAD, chronic renal disease stage III, hypertension, hyperlipidemia, and dementia. During the hospitalization his beta-mateus medication was discontinued. Patient was given some diuresis for mild acute on chronic systolic CHF. Venous Doppler to the lower extremity negative. Chest x-ray unremarkable. Patient was seen and evaluated by cardiology. Cardiology recommends to discontinue beta-mateus therapymetoprolol at home due to bradycardia. Patient will need to continue with diuretic therapy and HEATH inhibitor. At discharge the patient will continue with aspirin 80 mg daily, Plavix 75 mg daily, lisinopril 10 mg 1 pill twice daily, Lipitor 40 mg daily, and Lasix 40 mg daily. Patient will continue with the 1500 cc/day fluid r estriction and low-salt diet. Recommend to monitor his weight daily. If his weight increases by more than 5 pounds he is to contact his PCP or cardiology for further recommendation. Further adjustment in medication may be required. This can be done with the help of his PCP or cardiology. Recommend follow-up with PCP in 1 week. Recommend follow-up with cardiology in 1 to 2 weeks to follow-up hospitalization. Education on CHF, hypertension and bradycardia will be provided. Patient with CAD with prior LAD stent in March. Patient with ejection fraction of 31% with underlying systolic CHF. Continue with above recommendations. At discharge patient will continue with aspirin 81 mg daily, Plavix 25 mg daily and isosorbide mononitrate ER 60 mg daily. Patient will continue with his current medications as above. Patient with hyperlipidemia. At discharge patient will continue with Lipitor 40 mg daily. Will recommend to add fish oil 1000 mg 1 pill twice daily. Recommend to recheck fasting lipid panel in 4 to 6 weeks to monitor his progress. Patient with chronic renal disease stage III. This appears stable at this time. Recommend no further use of nonsteroidal anti-inflammatories. Future medications will need to be renally dosed. Patient would benefit with nephrology evaluation as an outpatient. This can be done with the help of his PCP. Patient with hypertension. As recommended above patient will be taken off his beta-mateus therapymetoprolol. Patient will continue with lisinopril but will increase to 10 mg 1 pill twice daily. Recommend to maintain blood pressure less than 130/80. Further adjustment can be done by his PCP. Patient with underlying dementia. Patient will continue with Aricept 5 mg daily and folic acid 1 mg daily. This can be followed up as an outpatient. Patient with COPD. At discharge patient will continue with Dulera 2 puffs twice daily and albuterol 2 puffs 3 times a day as needed for shortness of breath. Diet: AHA (1500 cc/day fluid restriction) Activity: Fall precautions Followup: Dwight Tate DO [Primary Care Provider] - Time spent managing pt's care (in minutes): 55
[2020-10-24] MEDS ORDERED: ENOXAPARIN 40 MG/0.4 ML SQ SCH (09:00)
[2020-10-24] MEDS ORDERED: DULERA 100/5 (MOMETASONE/FORMOTEROL) INHALER IH SCH (09:00)
[2020-10-24] MEDS ORDERED: FUROSEMIDE 20 MG/ 2ML VIAL IV SCH (09:00)
[2020-10-24] MEDS ORDERED: CLOPIDOGREL 75 MG TABLET PO SCH (09:00)
[2020-10-24] MEDS ORDERED: lisinopriL 10 MG TAB PO SCH (09:00)
[2020-10-24] MEDS ORDERED: ASPIRIN EC 81 MG TAB PO SCH (09:00)
[2020-10-24] MEDS ORDERED: FUROSEMIDE 40 MG TABLET PO SCH (09:00)
[2020-10-24] MEDS ORDERED: HYDRALAZINE HCL 20 MG/ML VIAL IV PRN (13:16)
[2020-10-24 14:29] VITALS: BP 138/62; TEMP 95.6
[2020-10-24] MEDS ORDERED: lisinopriL 20 MG TAB PO SCH (21:00)
[2020-10-24] MEDS ORDERED: ATORVASTATIN 40 MG TAB PO SCH (21:00)
[2020-10-25] MEDS ORDERED: PANTOPRAZOLE 40MG TABLET PO SCH (06:30)
[2020-10-25] MEDS ORDERED: ISOSORBIDE MONO SR 60 MG TAB PO SCH (09:00)
[2020-10-25] MEDS ORDERED: DONEPEZIL HCL 5 MG TAB PO SCH (09:00)
[2020-10-25] MEDS ORDERED: FOLIC ACID 1 MG TABLET PO SCH (09:00)
--- NOTE | 2020-10-26 10:31 | CON ---
Date of Consultation: 10/23/2020 Reason For Admission: Bradycardia and anemia. Reason For Consultation: Edema and bradycardia. History Of Present Illness: Mr. Mendiola is a 74-year-old male with history of hypertension, dyslipid emia, COPD, dementia, CAD status post stent, chronic systolic congestive heart failure, who came in w ith edema, low heart rate. Asymptomatic now. Denied any shortness of breath, PND, palpitations, or syncope. Denied any chest pain. Denied any nausea, vomiting, or diaphoresis. Denied any fever or c hills. Denied any syncope. He is known to have an ejection fraction of 31%, had a negative Lexiscan in September of 2020, has had an LAD stent in March of 2019. His chest x-ray is negative. Venous Dop pler is negative. He had a heart rate of 48. Past Medical History: As stated above. Allergies: NONE. Review of Systems: Negative. Social History: Negative. Family History: Noncontributory. Medications: At home include aspirin, Plavix, Coreg, lisinopril, inhalers, and Lipitor. Physical Examination: Vital Signs: Stable. When I saw him, his heart rate was 72, he was in sinus rhythm. HEENT: Negative. Neck: Supple with no bruit. Chest: Clear. Cardiac: Bradycardia with an S3 gallops. No murmurs or rubs. Abdomen: Benign. Extremities: Trace edema. Diagnostic Data: As stated earlier. Impression And Plan: 1.Bradycardia secondary to beta-mateus. I would hold his Coreg for now. 2.Chronic systolic congestive heart failure. He is on aspirin, Plavix, and Lipitor. I think we layla uld add low-dose Lasix and consider using a low-dose HEATH inhibitor. I will do that as an outpatient. Continue IV Lasix for now. He can probably go home whenever it is okay with Dr. Hollingsworth. I will co ozzie to follow him for now. I will repeat an echocardiogram as an outpatient. 3.His other issues including blood pressure, dyslipidemia, chronic obstructive pulmonary disease, de mentia, coronary artery disease, status post stent are stable. He remains on aspirin, Plavix, and Li pitor. We will continue his lisinopril as well. We will recommend salt restriction and fluid restri ction. NB/MODL Voice ID: [id number] Report ID: [id number]
--- NOTE | 2020-10-26 11:13 | PN ---
Date of Progress Note: 10/24/2020 Mr. Mendoila is a patient with history of CAD, status post stent, chronic systolic congestive heart fa ilure, dementia, COPD, hypertension, dyslipidemia, came in with acute on chronic systolic congestive heart failure exacerbation with mild edema and bradycardia. We held his beta-mateus. We will put h im on IV Lasix. Today, he is asymptomatic. His heart rate is in the 70s. I will continue his home regimen with aspirin, Plavix, lisinopril, inhaler, Lipitor low-dose Lasix. I will make arrangements for him to have another echocardiogram as an outpatient. An appointment to see me in the next week o r 2, otherwise, he can be discharged. VALORIE/MATIAS Voice ID: [id number] Report ID: [id number]
== END 2020-10-24 17:25 | disposition home or self-care (01) ==
LOC: ER 15:36 → ERHOLD 21:49 → 4TH 23:59
PROVIDERS: ADMIT Family Medicine; ATTEND Family Medicine
DX: R00.1 Bradycardia, unspecified (principal); I13.0 Hypertensive heart and chronic kidney disease with heart failure and stage 1 through stage 4 chronic kidney disease, or unspecified chronic kidney disease; I50.23 Acute on chronic systolic (congestive) heart failure; N18.30 Chronic kidney disease, stage 3 unspecified; I25.10 Atherosclerotic heart disease of native coronary artery without angina pectoris; I25.2 Old myocardial infarction; F03.90 Unspecified dementia, unspecified severity, without behavioral disturbance, psychotic disturbance, mood disturbance, and anxiety; E78.2 Mixed hyperlipidemia; J44.9 Chronic obstructive pulmonary disease, unspecified; F17.210 Nicotine dependence, cigarettes, uncomplicated; Z95.5 Presence of coronary angioplasty implant and graft; Z79.02 Long term (current) use of antithrombotics/antiplatelets; Z79.82 Long term (current) use of aspirin; Z79.899 Other long term (current) drug therapy
CPT/HCPCS: 93005; 85025 ×2; 80048; 36415; 83735 ×2; 85610; 80061; 82947; 80076; 84443; 81003 ×3; 84484; 84439; 80053; 83880; 71045; 93970; 96374; 99285; U0003; J1940; J1650; G0378 ×2; J7606

== ENCOUNTER 2021-03-31 23:41 | Emergency (ER) | payer OTHER ==
--- OUTSIDE RECORDS SUMMARY | 2021-03-31 23:44 | XMS REPORT | Continuity of Care Document ---
:1945 Author Organization [facility] t Address [address] [place] [address] Care Team Providers Name Role Phone FESTUS Attending Clinician Unavailable MD Carmelo DARNELL Attending Clinician Unavailable MCCNADIA Admitting Clinician Unavailable MD Carmelo DARNELL Admitting Clinician Unavailable Problems This patient has no known problems. Allergies, Adverse Reactions, Alerts This patient has no known allergies or adverse reactions. Medications Ordered Filled Start Stop Current Ordering Indication Dosage Frequency Signature Comments Components Source Medication Medication Date Date Medication? Clinician (SIG) Name Name Karma Parada Yes Ashley [address] [facility] 2-28 [facility] needed [facility] nausea[facility]vom l [facility]ing [facility] Folic Acid Folic Acid 2020- No Ashley [address] [facility] 2-04 10-31 [facility] Donepezil Donepezil 2018-05 Yes Ashley [address] [facility] HCl HCl 1-21 [place] at bedtime [facility] Crestor Crestor Yes Ashley [address] 9-18 [place] in evening [facility]: (for high [facility] 00 cholestero l l) [facility] Lisinopril Lisinopril Yes Ashley 1 [...] Procedures This patient has no known procedures. Encounters Start End Encounter Admission Attending Care Care Encounter Source Date/Time Date/Time Type Type Clinicians Facility Department ID 2021-02-02 2021-02-02 Outpatient [facility] [id number] [facility] 2021-01-07 2021-01-07 Outpatient [facility] [id number] [facility] 2020-12-16 2020-12-16 [facility] [id number] [facility] 2020-11-06 2020-11-06 [facility] [id number] [facility] 2020-11-03 2020-11-03 [facility] [id number] [facility] 2020-10-23 2020-10-23 [facility] [id number] [facility] 2020-10-16 2020-10-16 [facility] [id number] [facility] 2020-10-05 2020-10-05 [facility] [id number] [facility] 2020-09-08 2020-09-08 [facility] [id number] [facility] 2020-09-01 2020-09-01 [facility] [id number] [facility] 2020-08-25 2020-08-25 [facility] [id number] [facility] 2020-08-14 2020-08-20 Inpatient [facility] [id number] 00:00:00 00:00:00 [address] 2020-08-19 2020-08-19 Out[facility] [id number] [facility] 2020-07-21 2020-07-21 Out[facility] [id number] [facility] 2020-05-26 2020-05-26 [facility] [id number] [facility] 2020-05-26 2020-05-26 [facility] [id number] [facility] 2020-02-19 2020-02-19 [facility] [id number] [facility] 2019-10-29 2019[facility]10-29 [facility] [id number] [facility] 14[facility]45[facility]00 14:45:00 [facility] 2019-10-18 2019-10-18 [facility] [id number] [facility] 15:54:00 15:54:00 [facility] 2019-08-20 2019-08-20 [facility] [id number] [facility] 22:48:00 22:48:00 [facility] 2019-08-20 2019-08-20 [facility] [id number] [facility] 13:00:00 13:00:00 [facility] 2019-08-13 2019-08-13 [facility] [id number] [facility] 15:02:00 15:02:00 [facility] 2019-06-28 2019-06-28 [facility] [id number] 14:00:00 14:00:00 [facility] 2019-06-04 2019-06-04 [facility] [id number] [facility] 10:30:00 10:30:00 [facility] 2019-05-21 2019-05-21 Outpatient [facility] Ann Garcia [id number] [facility] 14:30:00 14:30:00 [facility] 2019-03-20 2019-03-20 Outpatient Mary Ann Garcia [id number] 14:00:00 14:00:00 [facility] Results Test Description Test Time Test Comments Results Result Comments Source SARS-CoV-2 (COVID-19) RNA [Presence] in Respiratory sp ecimen by 2020-08-15 06:35:29 AARON with probe detection Test Item Value Reference Range Interpretation Comme nts SARS-CoV-2 (COVID-19) RNA [Presence] in Respiratory Not detected No t-Detected specimen by AARON with probe detection (test code = 88192-1)
[2021-04-01 00:42] LABS: Protime INR 1.03
[2021-04-01 00:43] LABS: Basophils % 0.5 % (0-1.3); Hematocrit 38.3 % (39.6-49.0); Lymphocytes % 19.3 % (15.3-44.8); MPV 8.4 fL (7.6-11.3); RBC Red Blood Cell Count 4.42 M/uL (4.33-5.43)
[2021-04-01 00:50] LABS: ALT/SGPT 24 U/L (12-78); AST/SGOT 16 U/L (15-37); Albumin 3.4 g/dL (3.4-5.0); Alkaline Phosphatase 100 U/L (45-117); BUN Blood Urea Nitrogen 22 mg/dL (7-18); Bicarbonate 28 mmol/L (21-32); Bilirubin Direct < 0.1 mg/dL (0-0.2); Bilirubin Total 0.3 mg/dL (0.2-1.0); Glucose Level 115 mg/dL (74-106); Lipase 154 U/L (73-393); Magnesium 2.1 mg/dL (1.8-2.4); NT PRO-BNP 935 pg/mL (<125); Potassium 3.9 mmol/L (3.5-5.1); Protein, Total 7.3 g/dL (6.4-8.2); Sodium Level 144 mmol/L (136-145); Troponin (Emerg Dept Use Only) < 0.02 ng/mL (0.0-0.045)
[2021-04-01] MEDS ORDERED: ONDANSETRON 4 MG/2 ML VIAL ONE (03:24)
--- NOTE | 2021-04-01 04:16 | ER ---
Nurse's Notes [facility] Name: Zelalem Mendiola Age: 75 yrs Sex: Male : 1945 Arrival Date: 03/31/2021 Time: 23:46 Bed 19 Private MD: Diagnosis: Chest pain. Cholelilthiasis Presentation: 04/01 00:02 Chief complaint: Patient states: I was about to smoke a cigarette at 2200 this evening ld1 and I had five heavy sharp shooting pains in my lower left chest. Coronavirus screen: At this time, the client does not indicate any symptoms associated with coronavirus-19. Ebola Screen: No symptoms or risks identified at this time. Initial Sepsis Screen: Does the patient meet any 2 criteria? No. Patient's initial sepsis screen is negative. Does the patient have a suspected source of infection? No. Patient's initial sepsis screen is negative. Risk Assessment: Do you want to hurt yourself or someone else? Patient reports no desire to harm self or others. Onset of symptoms was April 01, 2021. 00:02 Method Of Arrival: Ambulatory ld1 00:02 Acuity: PADMAJA 3 ld1 Triage Assessment: 00:04 General: Appears in no apparent distress. comfortable, Behavior is calm, cooperative, ld1 appropriate for age. Pain: Denies pain. EENT: No signs and/or symptoms were reported regarding the EENT system. Neuro: Level of Consciousness is awake, alert, obeys commands, Oriented to person, place, time, situation, Appropriate for age. Cardiovascular: Reports chest pain, Pt denies pain at this time. Stated he had five sharp heavy shooting pains in left lower chest at 2200 this evening. Capillary refill < 3 seconds Patient's skin is warm and dry. Rhythm is regular. Respiratory: Airway is patent Respiratory effort is even, unlabored, Respiratory pattern is regular, symmetrical. GI: Abdomen is round non-distended. : No signs and/or symptoms were reported regarding the genitourinary system. Derm: No signs and/or symptoms reported regarding the dermatologic system. Musculoskeletal: No signs and/or symptoms reported regarding the musculoskeletal system. Historical: - Allergies: 00:04 NKDA; ld1 - Home Meds: 00:04 folic acid 1 mg Oral tab 1 tab once daily [Active]; aspirin 81 mg Oral chew 1 tab once ld1 daily [Active]; atorvastatin 40 mg Oral tab 1 tab once daily [Active]; clopidogrel 75 mg Oral tab 1 tab once daily [Active]; donepezil 5 mg Oral TbDL 1 tab once daily [Active]; furosemide 20 mg Oral tab MONDAY AND MONDAY [Active]; lisinopril 10 mg Oral tab 1 tab once daily [Active]; metoprolol tartrate 25 mg Oral tab 1 tab 2 times per day [Active]; isosorbide 60 mg daily [Active]; - PMHx: 00:04 cardiac stent; Cataracts; Dementia; Hyperlipidemia; Hypertension; Myocardial infarction;ld1 - Immunization history:: Adult Immunizations up to date, Client reports having NOT received the Covid vaccine. - Social history:: Smoking status: Patient reports the use of cigarette tobacco products, smokes two packs cigarettes per day. Patient/guardian denies using alcohol, street drugs. Screenin:21 Abuse screen: Denies threats or abuse. Nutritional screening: No deficits noted. as6 Tuberculosis screening: No symptoms or risk factors identified. Fall Risk None identified. Assessment: 00:06 Reassessment: Upon arrival to ER pt denies chest pain. Patient stated, "I had five ld1 sharp shooting heavy pains in my left lower chest at 2200 this evening, but right now I am not having any chest pain.". 00:19 General: Appears in no apparent distress. comfortable, Behavior is calm, cooperative. as6 Pain: Denies pain. Neuro: Level of Consciousness is awake, alert, obeys commands, Oriented to person, place, situation. Cardiovascular: Capillary refill < 3 seconds Patient's skin is warm and dry. Respiratory: Airway is patent Trachea midline Respiratory effort is even, unlabored, Respiratory pattern is regular, symmetrical. Derm: Skin is intact, is healthy with good turgor. 02:11 Reassessment: Patient and/or family updated on plan of care and expected duration. Pain as6 level reassessed. Patient is alert, oriented x 3, equal unlabored respirations, skin warm/dry/pink. Vital Signs: 00:02 BP 146 / 65; Pulse 80; Resp 17; Temp 98.3(O); Pulse Ox 97% on R/A; Weight 86.18 kg; ld1 Height 5 ft. 9 in. (175.26 cm); Pain 0/10; 01:01 BP 111 / 63; Pulse 64; Resp 20 S; Pulse Ox 95% on R/A; as6 02:04 BP 115 / 83; Pulse 64; Resp 18 S; Pulse Ox 96% on R/A; as6 03:00 BP 111 / 59; Pulse 65; Resp 16 S; Pulse Ox 95% on R/A; as6 04:02 BP 115 / 60; Pulse 67; Resp 19 S; Pulse Ox 93% on R/A; as6 00:02 Body Mass Index 28.06 (86.18 kg, 175.26 cm) ld1 ED Course: 03/31 23:46 Patient arrived in ED. bp1 23:58 Hunter Flores MD is Attending Physician. pkl 04/01 00:00 Anoop Sanford, RN is Primary Nurse. as6 00:04 Triage completed. ld1 00:04 Arm band placed on right wrist. EKG completed in triage. Results shown to MD. ld1 00:21 Inserted saline lock: 18 gauge in right antecubital area, using aseptic technique. as6 Blood collected. 00:22 Placed in gown. Bed in low position. Call light in reach. Side rails up X2. Adult w/ as6 patient. monitoring manager on. Pulse ox on. NIBP on. 00:34 XRAY Chest (1 view) In Process Unspecified. EDMS 01:11 US Abdomen Limited In Process Unspecified. EDMS 04:14 No provider procedures requiring assistance completed. IV discontinued, intact, as6 bleeding controlled, No redness/swelling at site. Pressure dressing applied. Administered Medications: 03:50 Drug: Zofran (Ondansetron) 4 mg Route: IVP; Site: right antecubital; as6 04:15 Follow up: Response: No adverse reaction as6 Outcome: 04:15 Discharge ordered by . pkmima 04:20 Discharged to home ambulatory, with family. as6 04:20 Condition: stable 04:20 Discharge instructions given to patient, family, Instructed on discharge instructions, follow up and referral plans. medication usage, Demonstrated understanding of instructions, follow-up care, medications, Prescriptions given X 1. 04:20 Patient left the ED. as6 Signatures: Dispatcher [employer] EDMS Flores, Pin, Julissa Young MD, Lauren, RN RN ld1 Anoop Sanford, LILA RN as6
--- NOTE | 2021-04-01 04:16 | EDPHYS ---
Physician Documentation [facility] Name: Zelalem Mendiola Age: 75 yrs Sex: Male : 1945 Arrival Date: 03/31/2021 Time: 23:46 Bed 19 Private MD: ED Physician Hunter Flores HPI: 04/01 00:13 This 75 yrs old Male presents to ER via Ambulatory with complaints of Chest Pain > 30 pkl y/o. 00:13 The patient or guardian reports chest pain that is located primarily in the substernal pkl area, epigastric area. Onset: just prior to arrival. The pain radiates to left lower chest. Associated signs and symptoms: Pertinent positives: abdominal pain. The chest pain is described as sharp. Historical: - Allergies: 00:04 NKDA; ld1 - Home Meds: 00:04 folic acid 1 mg Oral tab 1 tab once daily [Active]; aspirin 81 mg Oral chew 1 tab once ld1 daily [Active]; atorvastatin 40 mg Oral tab 1 tab once daily [Active]; clopidogrel 75 mg Oral tab 1 tab once daily [Active]; donepezil 5 mg Oral TbDL 1 tab once daily [Active]; furosemide 20 mg Oral tab MONDAY AND MONDAY [Active]; lisinopril 10 mg Oral tab 1 tab once daily [Active]; metoprolol tartrate 25 mg Oral tab 1 tab 2 times per day [Active]; isosorbide 60 mg daily [Active]; - PMHx: 00:04 cardiac stent; Cataracts; Dementia; Hyperlipidemia; Hypertension; Myocardial infarction;ld1 - Immunization history:: Adult Immunizations up to date, Client reports having NOT received the Covid vaccine. - Social history:: Smoking status: Patient reports the use of cigarette tobacco products, smokes two packs cigarettes per day. Patient/guardian denies using alcohol, street drugs. ROS: 00:13 Eyes: Negative for injury, pain, redness, and discharge, ENT: Negative for injury, pkl pain, and discharge, Neck: Negative for injury, pain, and swelling. 00:13 Cardiovascular: Positive for chest pain. 00:13 Respiratory: Negative for cough, shortness of breath. 00:13 Abdomen/GI: Positive for abdominal pain, of the epigastric area, right upper quadrant and left upper quadrant. 00:13 Back: Negative for acute changes. 00:13 : Negative for urinary symptoms. 00:13 MS/extremity: Negative for acute changes. 00:13 Skin: Negative for rash. 00:13 Neuro: Negative for altered mental status, loss of consciousness. Exam: 00:13 Head/Face: Normocephalic, atraumatic. Eyes: Pupils equal round and reactive to light, pkl extra-ocular motions intact. Lids and lashes normal. Conjunctiva and sclera are non-icteric and not injected. Cornea within normal limits. Periorbital areas with no swelling, redness, or edema. ENT: Nares patent. No nasal discharge, no septal abnormalities noted. Tympanic membranes are normal and external auditory canals are clear. Oropharynx with no redness, swelling, or masses, exudates, or evidence of obstruction, uvula midline. Mucous membranes moist. Neck: Trachea midline, no thyromegaly or masses palpated, and no cervical lymphadenopathy. Supple, full range of motion without nuchal rigidity, or vertebral point tenderness. No Meningismus. Chest/axilla: Normal chest wall appearance and motion. Nontender with no deformity. No lesions are appreciated. Cardiovascular: Regular rate and rhythm with a normal S1 and S2. No gallops, murmurs, or rubs. Normal PMI, no JVD. No pulse deficits. Respiratory: Lungs have equal breath sounds bilaterally, clear to auscultation and percussion. No rales, rhonchi or wheezes noted. No increased work of breathing, no retractions or nasal flaring. Abdomen/GI: Soft, non-tender, with normal bowel sounds. No distension or tympany. No guarding or rebound. No evidence of tenderness throughout. Back: No spinal tenderness. No costovertebral tenderness. Full range of motion. Skin: Warm, dry with normal turgor. Normal color with no rashes, no lesions, and no evidence of cellulitis. MS/ Extremity: Pulses equal, no cyanosis. Neurovascular intact. Full, normal range of motion. Neuro: Awake and alert, GCS 15, oriented to person, place, time, and situation. Cranial nerves II-XII grossly intact. Motor strength 5/5 in all extremities. Sensory grossly intact. Cerebellar exam normal. Normal gait. Vital Signs: 00:02 BP 146 / 65; Pulse 80; Resp 17; Temp 98.3(O); Pulse Ox 97% on R/A; Weight 86.18 kg; ld1 Height 5 ft. 9 in. (175.26 cm); Pain 0/10; 01:01 BP 111 / 63; Pulse 64; Resp 20 S; Pulse Ox 95% on R/A; as6 02:04 BP 115 / 83; Pulse 64; Resp 18 S; Pulse Ox 96% on R/A; as6 03:00 BP 111 / 59; Pulse 65; Resp 16 S; Pulse Ox 95% on R/A; as6 04:02 BP 115 / 60; Pulse 67; Resp 19 S; Pulse Ox 93% on R/A; as6 00:02 Body Mass Index 28.06 (86.18 kg, 175.26 cm) ld1 MDM: 03/31 23:58 Patient medically screened. pkl 04/01 04:10 Data reviewed: vital signs, nurses notes, lab test result(s), EKG, radiologic studies, pkl plain films. ED course: Patient feeling better. Not in any distress. Discussed lab, EKG and imaging studies with patient and . Advised to follow up with his PCP in 2 to 3 days. To return if necessary. Patient and understood instructions. 12 00:06 Order name: Basic Metabolic Panel; Complete Time: 00:52 ld1 04/01 00:06 Order name: CBC with Diff; Complete Time: 00:52 ld1 04/01 00:06 Order name: LFT's; Complete Time: 00:52 ld1 04/01 00:06 Order name: Magnesium; Complete Time: 00:52 ld1 04/01 00:06 Order name: NT PRO-BNP; Complete Time: 00:52 ld1 04/01 00:06 Order name: PT-INR; Complete Time: 00:52 ld1 04/01 00:06 Order name: Troponin (emerg Dept Use Only); Complete Time: 00:52 ld1 04/01 00:06 Order name: XRAY Chest (1 view) ld1 04/01 00:12 Order name: US Abdomen Limited pkl 04/01 00:23 Order name: Lipase; Complete Time: 00:52 EDMS 04/01 02:47 Order name: Troponin (Emerg Dept Use Only); Complete Time: 04:08 EDMS 12/02 00:06 Order name: EKG; Complete Time: 00:07 ld04/01 00:06 Order name: Cardiac monitoring; Complete Time: 00:06 ld04/01 00:06 Order name: EKG - Nurse/Tech; Complete Time: 00:06 ld04/01 00:06 Order name: IV Saline Lock; Complete Time: 00:14 ld04/01 00:06 Order name: Labs collected and sent; Complete Time: 00:16 ld04/01 00:06 Order name: O2 Per Protocol; Complete Time: 00:06 ld04/01 00:06 Order name: O2 Sat Monitoring; Complete Time: 00:06 ld04/01 02:46 Order name: EKG; Complete Time: 02:47 pkl Administered Medications: 03:50 Drug: Zofran (Ondansetron) 4 mg Route: IVP; Site: right antecubital; as6 04:15 Follow up: Response: No adverse reaction as6 Disposition Summary: 04/01/21 04:15 Discharge Ordered Location: Home pkl Problem: new pkl Symptoms: have improved pkl Condition: Stable pkl Diagnosis - Chest pain. Cholelilthiasis pkl Followup: pkl - With: Private Physician - When: 2 - 3 days - Reason: Re-evaluation by your physician Discharge Instructions: - Discharge Summary Sheet pkl Forms: - Medication Reconciliation Form pkl - Thank You Letter pkl - Antibiotic Education pkl - Prescription Opioid Use pkl Prescriptions: - Zofran 4 mg Oral Tablet - take 1 tablet by ORAL route every 12 hours As needed; 12 tablet; Refills: 0, pkl Product Selection Permitted Signatures: Dispatcher [employer] EDMS Hunter Flores MD MD pkl Birdie Maher, RN RN ld1 Anoop Sanford RN RN as6 Corrections: (The following items were deleted from the chart) 00:22 00:13 LIPASE+C.LAB.BRZ ordered. EDMS EDMS 02:58 02:47 Troponin (Emerg Dept Use Only) ordered. EDMS EDMS
[2021-04-01 04:27] VITALS: TEMP 98.3
[2021-04-01 04:33] VITALS: BP 115/60; O2SAT 93
--- NOTE | 2021-04-01 07:51 | RAD REPORT ---
EXAM DESCRIPTION: RAD - Chest Single View - 04/01/2021 12:34 am CLINICAL HISTORY: CHEST PAIN COMPARISON: October 23 TECHNIQUE: AP portable chest image was obtained 04/01/2021 12:34 am . FINDINGS: Lungs are clear. Interstitial pattern matches comparison. Heart and vasculature are normal . No measurable pleural effusion and no pneumothorax. No acute bony abnormality seen. No acute aortic findings suspected. IMPRESSION: No acute cardiopulmonary process. No significant change from comparison study.
--- NOTE | 2021-04-01 08:02 | RAD REPORT ---
EXAM DESCRIPTION: US - Abdomen Exam Limited - 04/01/2021 1:11 am CLINICAL HISTORY: ABD PAIN COMPARISON: Abdomen Exam Complete dated 07/16/2020 FINDINGS: A 12 millimeter mobile gallstone is identified without significant sludge or other stones confirmed. There is no wall thickening or pericholecystic fluid. Common bile duct is upper normal at 7 mm with no duct stone identifiable. No intrahepatic biliary zeus e dilatation seen. IMPRESSION: Cholelithiasis without acute cholecystitis findings identifiable at sonography. Common bile duct is upper normal at 7 mm with no duct stone identifiable.
== END 2021-04-01 04:20 | disposition home or self-care (01) ==
LOC: ER 23:41
DX: K80.20 Calculus of gallbladder without cholecystitis without obstruction (principal); I10 Essential (primary) hypertension; I25.2 Old myocardial infarction; F03.90 Unspecified dementia, unspecified severity, without behavioral disturbance, psychotic disturbance, mood disturbance, and anxiety; F17.210 Nicotine dependence, cigarettes, uncomplicated; Z95.818 Presence of other cardiac implants and grafts; Z79.82 Long term (current) use of aspirin
CPT/HCPCS: 93005 ×2; 85025; 80048; 36415; 83735; 85610; 80076; 84484 ×2; 83690; 83880; 71045; 76705; 96374; 99284; J2405

== ENCOUNTER 2022-03-10 20:25 | Emergency (ER) | payer OTHER ==
--- OUTSIDE RECORDS SUMMARY | 2022-03-10 20:33 | XMS REPORT | Continuity of Care Document ---
:[address] [facility] t Address [address] [place] [address] Care Team Providers Name Role Phone RAÚL CRUZ Primary Care Physician Unavailable DAKOTAH GALLO Attending Clinician Unavailable Dwight Tate Attending Clinician Unavailable Ashley Rizzo Attending Clinician Unavailable Doctor Unassigned, [place] Attending Clinician Unavailable Dakotah Gallo MD Attending Clinician UNRULY MONTOYA Attending Clinician Unavailable Ruperto Mcmullen MD Attending Clinician Beatriz Villarreal MD Attending Clinician Unruly Montoya DO Attending Clinician DAVDI MORTENSEN Attending Clinician Unavailable MD MELVI DARNELL Attending Clinician Unavailable DAKOTAH GALLO Admitting Clinician Unavailable BEATRIZ VILLARREAL Admitting Clinician Unavailable Beatriz Villarreal MD Admitting Clinician DAYTON GARCIA Admitting Clinician Unavailable MD MELVI DARNELL Admitting Clinician Unavailable Payers Payer Name Policy Type Policy Number Effective Date Expiration Date Shahrzad sánchez [facility] [id number] 2021spring 00:00:00 [facility] [id number] 2020 Common S pirit ing Medicare 00:00:00 - [facility] Problems Condition Condition Condition Status Onset Resolution Last Treating Co mments Source Name Details Category Date Date Treatment Clinician Date Altered Altered Disease Active Univers mental mental 6-19 ity of status, status, 00:00: [place] unspecifie unspecifie 00 Me dical d altered d altered Bran ch mental mental status status type type Calculus Calculus Disease Active [place] di of of [address] gallblad[facility] gallbladde 00:00: Ho spita r without r without 00 l cholecysti cholecysti tis tis without without obstructio obstructio n n [id number] 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 - [facility] disease [facility] [id number] Ischemic Problem Active Comm on heart Spirit disease [facility] [id number] Acute on Problem Active Comm on chronic Spirit systolic - [facility] congestive heart [facility] failure [facility] [id number] Cataract Problem Active Comm on extraction Spirit status, - [facility] unspecifie [facility] eye [facility] [id number] Reduced Problem Active Commo n vision [facility] Hyperlipid Hyperlipem Problem Active C ommon aemia ia [facility] [id number] Presence Problem Active Comm on of Spirit intraocula - [facility] r lens [facility] [id number] Chronic Problem Active Commo n diarrhea Spirit [facility] [id number] Blurry Problem Active Common vision [facility] [id number] History of Problem Active Co mmon kidney Spirit stones - [facility] [id number] Chronic Problem Active Commo n kidney Spirit disease, - [facility] unspecifie [facility] CKD [facility] stage [facility] [id number] Other Problem Active Common chronic Spirit pain - [facility] [id number] Pain in Problem Active Common right knee [facility] [id number] Elevated Problem Active Comm on blood Spirit pressure - [facility] reading [facility] diagnosis Medical of Center hypertensi on [id number] [place] in [place] [address] left knee [facility] [id number] Mixed Problem Active Common hyperlipid Spirit emia - [facility] [id number] Right leg Problem Active Co mmon [id number] paresthesi Spiri t as - [facility] [id number] Dementia Problem Active Commo n without Spirit behavioral - [facility] type [id number] Acute Problem Active Common systolic Spirit congestive - [facility] heart failure [facility] [id number] 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 type Vitamin D Vitamin D Problem Active Com mon deficiency deficiency Sp brielle - [facility] [id number] Cellulitis Problem Active Com mon of chest [facility] wall [facility] Disorder Prostate Problem Active Commo n of disorder [facility] prostate [facility] [id number] History of Problem Active Co mmon placement Spirit of stent - [facility]I in LAD coronary [facility] artery [facility] [id number] Systolic Problem Active Commo n congestive Spirit heart - CHI failure, St unspecie [facility] d HF Medical chronicity Center [id number] Frequent Problem Active Comm on falls Spirit [facility] [id number] Essential Problem Active Comm on hypertensi Spirit on [facility] [id number] Tobacco Problem Active Commo n use Spirit disorder - [facility] [id number] Incontinen Problem Active Com mon ce of Spirit feces, - [facility] unspecifie [facility] fecal [facility] incontinen Medica l ce type Center Allergies, Adverse Reactions, Alerts Allergy Allergy Status Severity Reaction(s) Onset Inactive Treating Comm ents Source Name Type Date Date Clinician NO KNOWN Drug Active Univers ALLERGIE Class ity of S [facility] [place] [facility] Social History Social Habit Start Date Stop Date Quantity Comments Source History of Current Smoker Common Spi rit - Tobacco Use [facility] Tobacco use and 2022-02-13 2022-02-13 Smokeless tobacco Un iversity of exposure 00:00:00 00:00:00 non-user [facility] [place] [facility] Exposure to 2022-01-30 2022-02-09 Not sure University of SARS-CoV-2 00:00:00 09:11:00 [place] [facility] (event) Branch Alcohol intake 2020-08-17 2020-08-17 Current drinker [facility] 00:00:00 00:00:00 of alcohol (finding) Sex Assigned At [address] 1945 [facility] 00:00:00 00:00:00 Smoking Status Start Date Stop Date Source Tobacco smoking consumption Univ [facility] unknown Branch Current Smoker 2021-01-31 00:00:00 Common Spiri t - [facility] Ce nter Occasional tobacco smoker 2020-08-14 00:00:00 [facility] Medications Ordered Filled Start Stop Current Ordering Indication Dosage Frequency Signature Comments Components Source Medication Medication Date Date Medication? Clinician (SIG) Name Name atorvastati Yes 40mg Take 40 mg Univers n 40 mg 6-30 by mouth ity of tablet 21:31: every [place] [address] evening. Medical Branch memantine 5 Yes 5mg Take 5 mg U nivers mg tablet 6-30 by mouth ity of 21:31: daily. [place] [address] memantine Medical [facility] Branch atorvastati Yes 40mg Take 40 mg Univers n 40 mg 6-30 by mouth ity of tablet 21:31: every [place] [address] evening. Medical Branch memantine 5 Yes 5mg Take 5 mg U nivers mg tablet 6-30 by mouth ity of 21:31: daily. [address] Branch clopidogreL Yes 75mg Take 75 mg Univers 75 mg 6-30 by mouth ity of tablet 21:31: daily. [address] Branch foLIC acid Yes 1mg Take 1 mg Un ellen 1 mg tablet 6-30 by mouth ity of 21:31: daily. [address] Branch furosemide Yes 20mg Take 20 mg U nivers 20 mg 6-30 by mouth ity of tablet 21:31: as needed. [place] [address] Medical states Branch only taking prn isosorbide Yes 60mg Take 60 mg U nivers mononitrate 6-30 by mouth ity of 60 mg 24 hr 21:31: [place]. [place] tablet [place] donepeziL 5 Yes 5mg Take 5 mg U nivers mg tablet 6-30 by mouth ity of 21:31: at [place] [address] bedtime. Medical Donepezil Branch hcl clopidogreL 2021-0 Yes 75mg Take 75 mg Univers 75 mg 6-30 by mouth ity of tablet 21:31: daily. [place] [address] Medical Branch atorvastati 2021-0 Yes 40mg Take 40 mg Univers n 40 mg 6-30 by mouth ity of tablet 21:31: every [place] [address] evening. Medical Branch memantine 5 2021-0 Yes 5mg Take 5 mg U nivers mg tablet 6-30 by mouth ity of 21:31: daily. [address] Medical Hcl Branch clopidogreL 2021-0 Yes 75mg Take 75 mg Univers 75 mg 6-30 by mouth ity of tablet 21:31: daily. [address] Branch foLIC acid 2021-0 Yes 1mg Take 1 mg Un ellen 1 mg tablet 6-30 by mouth ity of 21:31: daily. [address] Branch furosemide 2021-0 Yes 20mg Take 20 mg U nivers 20 mg 6-30 by mouth ity of tablet 21:31: as needed. [address] Branch only taking prn isosorbide 2021-0 Yes 60mg Take 60 mg U nivers mononitrate 6-30 by mouth ity of 60 mg 24 hr 21:31: daily. [place] [address] Medical Branch donepeziL 5 2021-0 Yes 5mg Take 5 mg U nivers mg tablet 6-30 by mouth ity of 21:31: at [place] [address] bedtime. Medical Donepezil Branch hcl foLIC acid 2021-0 Yes 1mg Take 1 mg Un ellen 1 mg tablet 6-30 by mouth ity of 21:31: daily. [place] [address] Medical Branch atorvastati 2021-0 Yes 40mg Take 40 mg Univers n 40 mg 6-30 by mouth ity of tablet 21:31: every [place] [address] evening. Medical Branch memantine 5 2021-0 Yes 5mg Take 5 mg U nivers mg tablet 6-30 by mouth ity of 21:31: daily. [address] Medical [facility] Branch clopidogreL 2021-0 Yes 75mg Take 75 mg Univers 75 mg 6-30 by mouth ity of tablet 21:31: daily. [address] Branch foLIC acid 2021-0 Yes 1mg Take 1 mg Un ellen 1 mg tablet 6-30 by mouth ity of 21:31: daily. [place] 31 Medical Branch furosemide 2021-0 Yes 20mg Take 20 mg U nivers 20 mg 6-30 by mouth ity of tablet 21:31: as needed. [place] [address] Medical [facility] Branch only taking prn isosorbide 2-0 Yes 60mg Take 60 mg U nivers mononitrate 6-30 by mouth ity of 60 mg 24 hr 21:31: [place]. [place] donepeziL 5 2021-0 Yes 5mg Take 5 mg U nivers mg tablet 6-30 by mouth ity of 21:31: at [place] [address] bedtime. Medical Donepezil Branch hcl atorvastati 2021-0 Yes 40mg Take 40 mg Univers n 40 mg 6-30 by mouth ity of tablet 21:31: every [place] [address] evening. Medical Branch memantine 5 2021-0 Yes 5mg Take 5 mg U nivers mg tablet 6-30 by mouth ity of 21:31: daily. [place] [address] memantine Medical [facility] Branch furosemide 2021-0 Yes 20mg Take 20 mg U nivers 20 mg 6-30 by mouth ity of tablet 21:31: as needed. [address] Branch only taking prn clopidogreL 2021-0 Yes 75mg Take 75 mg Univers 75 mg 6-30 by mouth ity of tablet 21:31: daily. [place] [address] Medical Branch foLIC acid 2021-0 Yes 1mg Take 1 mg Un ellen 1 mg tablet 6-30 by mouth ity of 21:31: daily. [place] [address] Medical Branch furosemide 2021-0 Yes 20mg Take 20 mg U nivers 20 mg 6-30 by mouth ity of tablet 21:31: as needed. [place] [address] Medical [facility] Branch only taking prn isosorbide 2-0 Yes 60mg Take 60 mg U nivers mononitrate 6-30 by mouth ity of 60 mg 24 hr 21:31: [place]. [place] Branch donepeziL 5 2021-0 Yes 5mg Take 5 mg U nivers mg tablet 6-30 by mouth ity of 21:31: at [place] [address] bedtime. Medical Donepezil Branch hcl atorvastati 2021-0 Yes 40mg Take 40 mg Univers n 40 mg 6-30 by mouth ity of tablet 21:31: every [place] [address] evening. Medical Branch memantine 5 2021-0 Yes 5mg Take 5 mg U nivers mg tablet 6-30 by mouth ity of 21:31: daily. [place] [address] memantine Medical Hcl Branch clopidogreL 2021-0 Yes 75mg Take 75 mg Univers 75 mg 6-30 by mouth ity of tablet 21:31: daily. [place] [address] Medical Branch isosorbide 2021-0 Yes 60mg Take 60 mg U nivers mononitrate 6-30 by mouth ity of 60 mg 24 hr 21:31: [place]. [place] foLIC acid 2021-0 Yes 1mg Take 1 mg Un ellen 1 mg tablet 6-30 by mouth ity of 21:31: daily. [place] [address] Medical Branch furosemide 2021-0 Yes 20mg Take 20 mg U nivers 20 mg 6-30 by mouth ity of tablet 21:31: as needed. [place] [address] Medical [facility] Branch only taking prn isosorbide 2021-0 Yes 60mg Take 60 mg U nivers mononitrate 6-30 by mouth ity of 60 mg 24 hr 21:31: [place]. [place] [address] Medical Branch donepeziL 5 2021-0 Yes 5mg Take 5 mg U nivers mg tablet 6-30 by mouth ity of 21:31: at [place] [address] bedtime. Medical Donepezil Branch hcl atorvastati 2021-0 Yes 40mg Take 40 mg Univers n 40 mg 6-30 by mouth ity of tablet 21:31: every [place] [address] evening. Medical Branch memantine 5 2021-0 Yes 5mg Take 5 mg U nivers mg tablet 6-30 by mouth ity of 21:31: daily. [place] [address] memantine Medical Hcl Branch clopidogreL 2021-0 Yes 75mg Take 75 mg Univers 75 mg 6-30 by mouth ity of tablet 21:31: daily. [place] [address] Medical Branch donepeziL 5 2021-0 Yes 5mg Take 5 mg U nivers mg tablet 6-30 by mouth ity of 21:31: at [place] [address] bedtime. Medical Donepezil Branch hcl foLIC acid 2021-0 Yes 1mg Take 1 mg Un ellen 1 mg tablet 6-30 by mouth ity of 21:31: daily. [place] [address] Medical Branch furosemide 2021-0 Yes 20mg Take 20 mg U nivers 20 mg 6-30 by mouth ity of tablet 21:31: as needed. [place] [address] Medical states Branch only taking prn isosorbide 2021-0 Yes 60mg Take 60 mg U nivers mononitrate 6-30 by mouth ity of 60 mg 24 hr 21:31: [place]. [place] Branch donepeziL 5 2021-0 Yes 5mg Take 5 mg U nivers mg tablet 6-30 by mouth ity of 21:31: at [place] [address] bedtime. Medical Donepezil Branch hcl atorvastati 2021-0 Yes 40mg Take 40 mg Univers n 40 mg 6-30 by mouth ity of tablet 21:31: every [place] [address] evening. Medical Branch memantine 5 2021-0 Yes 5mg Take 5 mg U nivers mg tablet 6-30 by mouth ity of 21:31: daily. [place] [address] memantine Medical [facility] Branch clopidogreL 2021-0 Yes 75mg Take 75 mg Univers 75 mg 6-30 by mouth ity of tablet 21:31: daily. [place] [address] Medical Branch foLIC acid 2021-0 Yes 1mg Take 1 mg Un ellen 1 mg tablet 6-30 by mouth ity of 21:31: daily. [place] [address] Medical Branch furosemide 2021-0 Yes 20mg Take 20 mg U nivers 20 mg 6-30 by mouth ity of tablet 21:31: as needed. [place] [address] [facility] Branch only taking prn isosorbide 2021-0 Yes 60mg Take 60 mg U nivers mononitrate 6-30 by mouth ity of 60 mg 24 hr 21:31: [place]. [place] Medical Branch donepeziL 5 2021-0 Yes 5mg Take 5 mg U nivers mg tablet 6-30 by mouth ity of 21:31: at [place] [address] bedtime. Medical Donepezil Branch hcl atorvastati 2021-0 Yes 40mg Take 40 mg Univers n 40 mg 6-30 by mouth ity of tablet 21:31: every [place] [address] evening. Medical Branch memantine 5 2021-0 Yes 5mg Take 5 mg U nivers mg tablet 6-30 by mouth ity of 21:31: daily. [place] [address] memantine Medical [facility] Branch clopidogreL 2021-0 Yes 75mg Take 75 mg Univers 75 mg 6-30 by mouth ity of tablet 21:31: daily. [place] [address] Medical Branch foLIC acid 2021-0 Yes 1mg Take 1 mg Un ellen 1 mg tablet 6-30 by mouth ity of 21:31: daily. [place] [address] Medical Branch furosemide 2021-0 Yes 20mg Take 20 mg U nivers 20 mg 6-30 by mouth ity of tablet 21:31: as needed. [place] [address] [facility] Branch only taking prn isosorbide 2021-0 Yes 60mg Take 60 mg U nivers mononitrate 6-30 by mouth ity of 60 mg 24 hr 21:31: [place]. [place] donepeziL 5 2021-0 Yes 5mg Take 5 mg U nivers mg tablet 6-30 by mouth ity of 21:31: at [place] [address] bedtime. Medical Donepezil Branch hcl atorvastati 2021-0 Yes 40mg Take 40 mg Univers n 40 mg 6-30 by mouth ity of tablet 21:31: every [place] [address] evening. Medical Branch memantine 5 2021-0 Yes 5mg Take 5 mg U nivers mg tablet 6-30 by mouth ity of 21:31: daily. [place] [address] memantine Medical [facility] Branch clopidogreL 2021-0 Yes 75mg Take 75 mg Univers 75 mg 6-30 by mouth ity of tablet 21:31: daily. [place] [address] Medical Branch foLIC acid 2021-0 Yes 1mg Take 1 mg Un ellen 1 mg tablet 6-30 by mouth ity of 21:31: daily. [place] [address] Medical Branch furosemide 2021-0 Yes 20mg Take 20 mg U nivers 20 mg 6-30 by mouth ity of tablet 21:31: as needed. [address] Branch only taking prn isosorbide 2021-0 Yes 60mg Take 60 mg U nivers mononitrate 6-30 by mouth ity of 60 mg 24 hr 21:31: [place]. [place] donepeziL 5 2021-0 Yes 5mg Take 5 mg U nivers mg tablet 6-30 by mouth ity of 21:31: at [place] [address] bedtime. Medical Donepezil Branch hcl atorvastati 2021-0 Yes 40mg Take 40 mg Univers n 40 mg 6-30 by mouth ity of tablet 21:31: every [place] [address] evening. Medical Branch memantine 5 2021-0 Yes 5mg Take 5 mg U nivers mg tablet 6-30 by mouth ity of 21:31: daily. [place] [address] memantine Medical Hcl Branch clopidogreL 2021-0 Yes 75mg Take 75 mg Univers 75 mg 6-30 by mouth ity of tablet 21:31: daily. [place] [address] Medical Branch foLIC acid 2021-0 Yes 1mg Take 1 mg Un ellen 1 mg tablet 6-30 by mouth ity of 21:31: daily. [place] [address] Medical Branch furosemide 2021-0 Yes 20mg Take 20 mg U nivers 20 mg 6-30 by mouth ity of tablet 21:31: as needed. [address] only taking prn isosorbide 2021-0 Yes 60mg Take 60 mg U nivers mononitrate 6-30 by mouth ity of 60 mg 24 hr 21:31: [place]. [place] Branch donepeziL 5 2021-0 Yes 5mg Take 5 mg U nivers mg tablet 6-30 by mouth ity of 21:31: at [place] [address] bedtime. Medical Donepezil Branch hcl atorvastati 2021-0 Yes 40mg Take 40 mg Univers n 40 mg 6-30 by mouth ity of tablet 21:31: every [place] [address] evening. Medical Branch memantine 5 2021-0 Yes 5mg Take 5 mg U nivers mg tablet 6-30 by mouth ity of 21:31: daily. [place] [address] memantine Medical Hcl Branch clopidogreL 2021-0 Yes 75mg Take 75 mg Univers 75 mg 6-30 by mouth ity of tablet 21:31: daily. [place] [address] Medical Branch foLIC acid 2021-0 Yes 1mg Take 1 mg Un ellen 1 mg tablet 6-30 by mouth ity of 21:31: daily. [place] [address] Medical Branch furosemide 2021-0 Yes 20mg Take 20 mg U nivers 20 mg 6-30 by mouth ity of tablet 21:31: as needed. [address] Branch only taking prn isosorbide 2021-0 Yes 60mg Take 60 mg U nivers mononitrate 6-30 by mouth ity of 60 mg 24 hr 21:31: [place]. [place] tablet Medical [place] donepeziL 5 2021-0 Yes 5mg Take 5 mg U nivers mg tablet 6-30 by mouth ity of 21:31: at [place] [address] bedtime. Medical Donepezil Branch hcl lisinopriL 2022-0 Yes 2.5mg Take 1 Univ ers 2.5 mg 6-29 tablet by ity of tablet 00:00: mouth [place] 00 daily. Medical Branch lisinopriL 2022-0 Yes 2.5mg Take 1 Univ ers 2.5 mg 6-29 tablet by ity of tablet 00:00: mouth [place] 00 daily. Medical Branch lisinopriL 2022-0 Yes 2.5mg Take 1 Univ ers 2.5 mg 6-29 tablet by ity of tablet 00:00: mouth [place] 00 daily. Medical Branch lisinopriL 2022-0 Yes 2.5mg Take 1 Univ ers 2.5 mg 6-29 tablet by ity of tablet 00:00: mouth [place] 00 daily. Medical Branch lisinopriL 2-0 Yes 2.5mg Take 1 Univ ers 2.5 mg 6-29 tablet by ity of tablet 00:00: mouth [place] 00 daily. Medical Branch lisinopriL 2-0 Yes 2.5mg Take 1 Univ ers 2.5 mg 6-29 tablet by ity of tablet 00:00: mouth [place] 00 daily. Medical Branch lisinopriL 2-0 Yes 2.5mg Take 1 Univ ers 2.5 mg 6-29 tablet by ity of tablet 00:00: mouth [place] 00 daily. Medical Branch lisinopriL 2-0 Yes 2.5mg Take 1 Univ ers 2.5 mg 6-29 tablet by ity of tablet 00:00: mouth [place] 00 daily. Medical Branch lisinopriL 2-0 Yes 2.5mg Take 1 Univ ers 2.5 mg 6-29 tablet by ity of tablet 00:00: mouth [place] 00 daily. Medical Branch lisinopriL 2022-0 Yes 2.5mg Take 1 Univ ers 2.5 mg 6-29 tablet by ity of tablet 00:00: mouth [place] 00 daily. Medical Branch lisinopriL 2022-0 Yes 2.5mg Take 1 Univ ers 2.5 mg 6-29 tablet by ity of tablet 00:00: mouth [place] 00 daily. Medical Branch lisinopriL 2022-0 Yes 2.5mg Take 1 Univ ers 2.5 mg 6-29 tablet by ity of tablet 00:00: mouth [place] 00 daily. Medical Branch lisinopriL 2022-0 2022- No 20mg Take 20 mg Univers 20 mg 6-28 06-28 by mouth ity of tablet 14:35: 00:00 as needed. [place] 32 :00 [facility] Branch only taking prn lactated 2021- No 500mL at 100 Unive rs ringers IV 10-24 mL/hr, 500 it y of infusion 15:57: 15:58 mL, [place] 500 mL 00 :00 Intravenou Medical s, ONCE, 1 Branch dose, On 10/24/21 at 1100, DIMITRI lisinopriL Yes 2.5mg 2.5 mg, Uni vers (PRINIVIL,Z 10-24 Oral, ity of ESTRIL) 14:00: DAILY, [place] tablet 2.5 00 First dose Med ical mg (after Branch last modificati on) on 10/24/21 at 0900, Until Discontinu ed, Routine ondansetron 2021- No 4mg 4 mg, Slow Univers (ZOFRAN 10-24 IV Push, ity of (PF)) 07:15: 06:13 ONCE, On [place] injection 4 00 :00 Sun Medical mg 10/24/21 at Branch 0215, For 1 dose
Do ses of ondansetro n 16 mg and above need to be administer ed via IV piggyback. For Dose >=24mg ECG monitoring is advisable.
lactated 2021- No 500mL at 999 Unive rs ringers IV 10-24 mL/hr, 500 it y of infusion 01:15: 00:10 mL, [place] 500 mL 00 :00 Intravenou Medical s, ONCE, 1 Branch dose, On 10/23/21 at 2015, Routine thiamine Yes 100mg 100 mg, Unive rs (VITAMIN 10-22 Oral, ity of B1) tablet 14:00: DAILY, [place] 100 mg 00 First dose Medical on Mon Branch 10/22/21 at 0900, Until Discontinu ed, Routine lisinopriL 2021- No 10mg 10 mg, Univ ers (PRINIVIL,Z 10-22 Oral, ity of ESTRIL) 14:00: 00:06 DAILY, [place] tablet 10 00 :50 First dose Medi maximo mg on Mon Branch 10/22/21 at 0900, Until Discontinu ed, Routine lidocaine No 10mL 10 mL, Unive rs 1% (PF) 10-21 Subcutaneo ity o f (XYLOCAINE) 22:00: 22:00 us, ONCE, [place] injection 00 :00 1 dose, On Medi maximo 10 mL [place] Branch 10/21/21 at 1700, Routine lidocaine 2021- No 20mL 20 mL, Unive rs 1% (PF) 10-21 Subcutaneo ity o f (XYLOCAINE) 21:37: 22:00 us, ONCE, [place] injection 00 :00 1 dose, On Medi maximo 20 mL [place] Branch 10/21/21 at 1645, Routine thiamine No 100mg IV Univers (VITAMIN 10-21 Piggyback, ity of B1) 100 mg 14:00: 13:07 DAILY, 3 [place] in NaCl 00 :45 doses, Medical 0.9% (NS) First dose Bran ch piggyback on Gavi 10/21/21 at 0900, Last dose on 10/23/21 at 0900, 50 mL donepeziL Yes 10mg 10 mg, Univer s (ARICEPT) 10-20 Oral, QHS, ity of tablet 10 02:00: First dose [place] mg 00 (after Medical last Branch modificati on) on Mon10/19/21 at 2100, Until Discontinu ed, Routine cyanocobala No 1000ug 1,000 mcg, Univers min 10-19 Intramuscu ity of (VITAMIN 03:30: 10:56 [place], ONCE, [place] B12) 00 :00 1 dose, On Medical injection Mon Branch 1,000 mcg 10/18/21 at 2230, Routine lactated No 500mL at 150 Unive rs ringers IV 10-18- mL/hr, 500 it y of infusion 14:45: 15:50 mL, [place] 500 mL 00 :00 Intravenou Medical s, ONCE, 1 Branch dose, On 10/18/21 at 0945, Routine donepeziL 2022-0 2022- No 5mg 5 mg, Univer s (ARICEPT) 10-18 Oral, QHS, ity of tablet 5 mg 02:00: 21:17 First dose [place] 00 :48 on [facility] 10/17/21 at Branch 2100, Until Discontinu ed, Routine enoxaparin 0 Yes 40mg 40 mg, Unive rs (LOVENOX) 10-17 Subcutaneo ity of injection 22:00: [place], DAILY, [place] 40 mg 00 First dose Medical on [facility] 10/17/21 at 1700, Until Discontinu ed, Routine atorvastati 0 Yes 40mg 40 mg, Univ ers n (LIPITOR) 10-17 Oral, QPM, it y of tablet 40 22:00: First dose [place] mg 00 on [facility] 10/17/21 at Branch 1700, Until Discontinu ed, Routine isosorbide 0 Yes 60mg 60 mg, Unive rs mononitrate 10-17 Oral, ity of (IMDUR) 24 14:00: DAILY, [place] hr tablet 00 First dose Medi maximo 60 mg on [facility] 10/17/21 at 0900, Until Discontinu ed, Routine foLIC acid Yes 1mg 1 mg, Univer s (FOLATE) 10-17 Oral, ity of tablet 1 mg 14:00: DAILY, [place] 00 First dose Medical on [facility] 10/17/21 at 0900, Until Discontinu ed, Routine clopidogreL 0 Yes 75mg 75 mg, Univ ers (PLAVIX) 75 10-17 Oral, ity of mg tablet 14:00: DAILY, [place] 75 mg 00 First dose Medical on [facility] 10/17/21 at 0900, Until Discontinu ed, Routine memantine 2021- No 5mg 5 mg, Univer s (NAMENDA) 10-17 Oral, ity of tablet 5 mg 14:00: 21:17 DAILY, Nilo as 00 :48 First dose Medical on [facility] 10/17/21 at 0900, Until Discontinu ed, Routine
guardian family member approving Restricted medication : GERALDINE CERVANTES thiamine 2021-0 2021- No 200mg IV Univers (VITAMIN 10-17 Piggyback, ity of B1) 200 mg 13:15: 14:19 [place], 3 [place] NaCl 00 :00 doses, Medical 0.9% (NS) First dose Bran ch piggyback on 10/17/21 at 0815, Last dose on 10/18/21 at 0900, 50 mL lactated 2021- No 500mL at 150 Unive rs ringers IV 10-17 mL/hr, 500 it y of infusion 12:15: 13:39 mL, [place] 500 mL 00 :00 Intravenou Medical s, ONCE, 1 Branch dose, On 10/17/21 at 0715, Routine acetaminoph Yes 650mg 650 mg, Un ellen en 10-17 Oral, ity of (TYLENOL) 11:03: Q6HPRN, [place] tablet 650 36 Starting Medic al mg on [place] Branch 10/17/21 at 0603, Until Discontinu ed, Routine, Pain (scale 1-3) donepeziL 2021- No 5mg Take 5 mg Un ellen 10 mg 10-17 by mouth ity of tablet 06:03: 00:00 every [place] 56 :00 morning. Medical Donepezil Branch Hcl isosorbide 2021- No 60mg Take 60 mg Univers mononitrate 10-17 by mouth ity of 120 mg 24 06:03: 00:00 daily. [place] hr tablet 56 :00 Medical Branch iohexol 2021- No [id number] 130mL 130 mL, U nivers (OMNIPAQUE 10-17 Intravenou it y of 350 06:00: 05:39 s, ONCE, 1 [place] BULK-100 00 :00 dose, On Medical mL) [facility] injection 10/17/21 at 130 mL 0100, Routine NaCl 0.9% Yes 5mL 5 mL, Slow Un ellen (NS) 10-17 IV Push, ity of injection 5 04:53: PRN - [place] mL 24 INSTRUCTIO Medical NS, Branch Starting on 10/16/21 at 2353, Until Discontinu ed, 10 mL Vitamin D3 Vitamin D3 2020- No 1{capsu Vitamin D3 57165 UNIT 69118 UNIT 11-03 le} 16473 UNIT 00:00: 00:00 00 :00 Vitamin D3 Vitamin D3 2021- No 1{capsu Vitamin D3 69643 UNIT 28218 UNIT 11-03 le} 26049 UNIT 00:00: 00:00 00 :00 Vitamin D3 Vitamin D3 2020-0 2021- No 1{capsu Vitamin D3 10760 UNIT 97820 UNIT 11-03 le} 86949 UNIT 00:00: 00:00 00 :00 furosemide Yes 20mg Q.5W Take 20 mg M ethodi (LASIX) 20 4-[address] mg tablet 16:10: (two) Hospita 34 times a l week. Takes on Monday and folic acid Yes 1mg QD Take 1 mg Me thodi (FOLVITE) 1 3-[address] MG tablet 00:00: daily. Hospit a 00 l donepeziL Yes 5mg QD Take 5 mg Met hodi (ARICEPT) 5 3-[address] MG tablet 00:00: daily. Hospit a 00 l metoprolol Yes 25mg Q.5D Take 25 mg M ethodi tartrate 2-[address] (LOPRESSOR) 00:00: (two) Hospi ta 25 mg 00 times a l tablet day. atorvastati Yes 40mg QD Take 40 mg Methodi n (LIPITOR) 2-[address] 40 mg 00:00: daily. Hospita tablet 00 l clopidogreL Yes 75mg QD Take 75 mg Methodi (PLAVIX) 75 2-[address] mg tablet 00:00: daily. Hospit a 00 l lisinopriL Yes 10mg QD Take 10 mg M ethodi (PRINIVIL) 1-[address] 10 mg 00:00: daily. Hospita tablet 00 l Zofran Zofran 2019-0 Yes Ashley 1 tablet Comm on 2-28 [place] as needed Spiri t 00:00: for - [facility] 00 nausea/vom [facility] Zofran 4 MG Zofran 4 MG 2020-0 No Zofran 4 2-28 MG 00:00: 00 Zofran 4 MG Zofran 4 MG 2020-0 No Zofran 4 2-28 MG 00:00: 00 Zofran 4 MG Zofran 4 MG 2020-0 No Zofran 4 2-28 MG 00:00: 00 Zofran 4 MG Zofran 4 MG 2020-0 No Zofran 4 2-28 MG 00:00: 00 Zofran 4 MG Zofran 4 MG 2020-0 No Zofran 4 2-28 MG 00:00: 00 Zofran 4 MG Zofran 4 MG 2020-0 No Zofran 4 2-28 MG 00:00: 00 Zofran 4 MG Zofran 4 MG 2020-0 No Zofran 4 2-28 MG 00:00: 00 Zofran 4 MG Zofran 4 MG 2020-0 No Zofran 4 2-28 MG 00:00: 00 Zofran 4 MG Zofran 4 MG 2020-0 No Zofran 4 2-28 MG 00:00: 00 Zofran 4 MG Zofran 4 MG 2020-0 No Zofran 4 2-28 MG 00:00: 00 Zofran 4 MG Zofran 4 MG 2020-0 No Zofran 4 2-28 MG 00:00: 00 Zofran 4 MG Zofran 4 MG 2020-0 No Zofran 4 2-28 MG 00:00: 00 Zofran 4 MG Zofran 4 MG 2020-0 No Zofran 4 2-28 MG 00:00: 00 Zofran 4 MG Zofran 4 MG 2020-0 No Zofran 4 2-28 MG 00:00: 00 Zofran 4 MG Zofran 4 MG 2020-0 No Zofran 4 2-28 MG 00:00: 00 Zofran 4 MG Zofran 4 MG 2020-0 No Zofran 4 2-28 MG 00:00: 00 Folic Acid Folic Acid 2020-0 2020- No Ashley 1 tablet Common 06-04 [facility] 00:00: 00:00 - [facility] 00 :00 [facility] Folic Acid Folic Acid 2020-0 2020- No 1{table QD Folic Acid 1 MG 1 MG 2-02-28 t} 1 MG 00:00: 00:00 00 :00 Donepezil Donepezil 2019-1 Yes Ashley 1 tablet Common HCl HCl 1-21 [place] at bedtime Spir it 00:00: - CHI 00 [facility] Crestor Crestor 2018-0 Yes Ashley 1 tablet Co mmon 9-18 [place] in evening Spir it 00:00: (for high - [facility]I [address] l) [facility] Lisinopril Lisinopril Yes Ashley 1 tablet Common Millender [facility] Clopidogrel Clopidogrel Yes Ashley 1 tablet Common Bisulfate Bisulfate Mill[facility] Ultram Ultram Yes Ashley 1 tab as Common Millender needed for Spir it severe - CHI pain [facility] Atorvastati Atorvastati Yes Ashley 1 tablet Common n Calcium n Calcium Millender [facility] Metoprolol Metoprolol Yes Ashley 1 tablet Common Tartrate Tartrate Millender with food [facility] Advair Advair Yes Ashley 1 puff Common Diskus Diskus Millender [facility] Krill Oil Krill Oil Yes Ashley (otc) 1 C ommon Millender capsule [facility] ProAir HFA ProAir HFA Yes Ashley 2 puffs as Common Millender needed [facility] Lipitor Lipitor Yes Ashley 1 tablet Comm on Millender [facility] Furosemide Furosemide Yes Ashley 1 tablet Common Millender [facility] Sulfamethox Sulfamethox Yes Ashley TAKE 1 Common azole-Trime azole-Trime [place] TABLET BY [facility] thoprim thoprim MOUTH - [facility]I EVERY [address] [facility] HOURS FOR [facility] 10 [facility] Doxycycline Doxycycline Yes Ashley TAKE 1 Common Hyclate Hyclate [place] CAPSULE BY [facility] MOUTH - [facility]I EVERY [address] HOURS [facility] Aspirin 81 Aspirin 81 No 1{table QD Aspirin 81 81 MG 81 MG t} 81 MG Krill Oil Krill Oil No Krill Oil 1000 MG 1000 MG 1000 MG Sulfamethox Sulfamethox No Sulfametho azole-Trime azole-Trime xazole-Tri thoprim thoprim methoprim 800-160 MG 800-160 MG 800-160 MG Lisinopril Lisinopril No 1{table QD Lisinopril 10 MG 10 MG t} 10 MG Furosemide Furosemide No 1{table QD Furosemide 20 MG 20 MG t} 20 MG Lipitor 10 Lipitor 10 No 1{table QD Lipitor 10 MG MG t} MG Metoprolol Metoprolol No 1{table BID Metoprolol Tartrate 25 Tartrate 25 t_with_ Tartrate MG MG food} 25 MG Crestor 20 Crestor 20 No QD Crestor 20 MG MG MG Doxycycline Doxycycline No Doxycyclin Hyclate 100 Hyclate 100 e Hyclate MG MG 100 MG ProAir HFA ProAir HFA No 2{puffs QID ProAir HFA 108 (90 108 (90 _as_nee 108 (90 Base) Base) ded} Base) MCG/ACT MCG/ACT MCG/ACT Advair Advair No 1{puff} BID Advair Diskus Diskus Diskus 250-50 250-50 250-50 MCG/DOSE MCG/DOSE MCG/DOSE Atorvastati Atorvastati No 1{table QD Atorvastat n Calcium n Calcium t} in Calcium 40 MG 40 MG 40 MG Donepezil Donepezil No 1{table Donepezil HCl 5 MG HCl 5 MG t_at_be HCl 5 MG dtime} Ultram 50 Ultram 50 No QD Ultram 50 MG MG MG Clopidogrel Clopidogrel No 1{table QD Clopidogre Bisulfate Bisulfate t} l 75 MG 75 MG Bisulfate 75 MG Aspirin 81 Aspirin 81 No 1{table QD Aspirin 81 81 MG 81 MG t} 81 MG Krill Oil Krill Oil No Krill Oil 1000 MG 1000 MG 1000 MG Sulfamethox Sulfamethox No Sulfametho azole-Trime azole-Trime xazole-Tri thoprim thoprim methoprim 800-160 MG 800-160 MG 800-160 MG Lisinopril Lisinopril No 1{table QD Lisinopril 10 MG 10 MG t} 10 MG Furosemide Furosemide No 1{table QD Furosemide 20 MG 20 MG t} 20 MG Lipitor 10 Lipitor 10 No 1{table QD Lipitor 10 MG MG t} MG Metoprolol Metoprolol No 1{table BID Metoprolol Tartrate 25 Tartrate 25 t_with_ Tartrate MG MG food} 25 MG Crestor 20 Crestor 20 No QD Crestor 20 MG MG MG Doxycycline Doxycycline No Doxycyclin Hyclate 100 Hyclate 100 e Hyclate MG MG 100 MG ProAir HFA ProAir HFA No 2{puffs QID ProAir HFA 108 (90 108 (90 _as_nee 108 (90 Base) Base) ded} Base) MCG/ACT MCG/ACT MCG/ACT Advair Advair No 1{puff} BID Advair Diskus Diskus Diskus 250-50 250-50 250-50 MCG/DOSE MCG/DOSE MCG/DOSE Atorvastati Atorvastati No 1{table QD Atorvastat n Calcium n Calcium t} in Calcium 40 MG 40 MG 40 MG Donepezil Donepezil No 1{table Donepezil HCl 5 MG HCl 5 MG t_at_be HCl 5 MG dtime} Ultram 50 Ultram 50 No QD Ultram 50 MG MG MG Clopidogrel Clopidogrel No 1{table QD Clopidogre Bisulfate Bisulfate t} l 75 MG 75 MG Bisulfate 75 MG Furosemide Furosemide No 1{table QD Furosemide 20 MG 20 MG t} 20 MG Advair Advair No 1{puff} BID Advair Diskus Diskus Diskus 250-50 250-50 250-50 MCG/DOSE MCG/DOSE MCG/DOSE Clopidogrel Clopidogrel No 1{table QD Clopidogre Bisulfate Bisulfate t} l 75 MG 75 MG Bisulfate 75 MG Atorvastati Atorvastati No 1{table QD Atorvastat n Calcium n Calcium t} in Calcium 40 MG 40 MG 40 MG Lisinopril Lisinopril No 1{table QD Lisinopril 10 MG 10 MG t} 10 MG Krill Oil Krill Oil No Krill Oil 1000 MG 1000 MG 1000 MG Metoprolol Metoprolol No 1{table BID Metoprolol Tartrate 25 Tartrate 25 t_with_ Tartrate MG MG food} 25 MG Aspirin 81 Aspirin 81 No 1{table QD Aspirin 81 81 MG 81 MG t} 81 MG Donepezil Donepezil No 1{table Donepezil HCl 5 MG HCl 5 MG t_at_be HCl 5 MG dtime} ProAir HFA ProAir HFA No 2{puffs QID ProAir HFA 108 (90 108 (90 _as_nee 108 (90 Base) Base) ded} Base) MCG/ACT MCG/ACT MCG/ACT Folic Acid Folic Acid No 1{table QD Folic Acid 1 MG 1 MG t} 1 MG Furosemide Furosemide No 1{table QD Furosemide 20 MG 20 MG t} 20 MG Advair Advair No 1{puff} BID Advair Diskus Diskus Diskus 250-50 250-50 250-50 MCG/DOSE MCG/DOSE MCG/DOSE Clopidogrel Clopidogrel No 1{table QD Clopidogre Bisulfate Bisulfate t} l 75 MG 75 MG Bisulfate 75 MG Atorvastati Atorvastati No 1{table QD Atorvastat n Calcium n Calcium t} in Calcium 40 MG 40 MG 40 MG Lisinopril Lisinopril No 1{table QD Lisinopril 10 MG 10 MG t} 10 MG Krill Oil Krill Oil No Krill Oil 1000 MG 1000 MG 1000 MG Metoprolol Metoprolol No 1{table BID Metoprolol Tartrate 25 Tartrate 25 t_with_ Tartrate MG MG food} 25 MG Aspirin 81 Aspirin 81 No 1{table QD Aspirin 81 81 MG 81 MG t} 81 MG Donepezil Donepezil No 1{table Donepezil HCl 5 MG HCl 5 MG t_at_be HCl 5 MG dtime} ProAir HFA ProAir HFA No 2{puffs QID ProAir HFA 108 (90 108 (90 _as_nee 108 (90 Base) Base) ded} Base) MCG/ACT MCG/ACT MCG/ACT Folic Acid Folic Acid No 1{table QD Folic Acid 1 MG 1 MG t} 1 MG Furosemide Furosemide No 1{table QD Furosemide 20 MG 20 MG t} 20 MG Advair Advair No 1{puff} BID Advair Diskus Diskus Diskus 250-50 250-50 250-50 MCG/DOSE MCG/DOSE MCG/DOSE Clopidogrel Clopidogrel No 1{table QD Clopidogre Bisulfate Bisulfate t} l 75 MG 75 MG Bisulfate 75 MG Atorvastati Atorvastati No 1{table QD Atorvastat n Calcium n Calcium t} in Calcium 40 MG 40 MG 40 MG Lisinopril Lisinopril No 1{table QD Lisinopril 10 MG 10 MG t} 10 MG Krill Oil Krill Oil No Krill Oil 1000 MG 1000 MG 1000 MG Metoprolol Metoprolol No 1{table BID Metoprolol Tartrate 25 Tartrate 25 t_with_ Tartrate MG MG food} 25 MG Aspirin 81 Aspirin 81 No 1{table QD Aspirin 81 81 MG 81 MG t} 81 MG Donepezil Donepezil No 1{table Donepezil HCl 5 MG HCl 5 MG t_at_be HCl 5 MG dtime} ProAir HFA ProAir HFA No 2{puffs QID ProAir HFA 108 (90 108 (90 _as_nee 108 (90 Base) Base) ded} Base) MCG/ACT MCG/ACT MCG/ACT Folic Acid Folic Acid No 1{table QD Folic Acid 1 MG 1 MG t} 1 MG Aspirin 81 Aspirin 81 No 1{table QD Aspirin 81 81 MG 81 MG t} 81 MG ProAir HFA ProAir HFA No 2{puffs QID ProAir HFA 108 (90 108 (90 _as_nee 108 (90 Base) Base) ded} Base) MCG/ACT MCG/ACT MCG/ACT Metoprolol Metoprolol No 1{table BID Metoprolol Tartrate 25 Tartrate 25 t_with_ Tartrate MG MG food} 25 MG Furosemide Furosemide No 1{table QD Furosemide 20 MG 20 MG t} 20 MG Advair Advair No 1{puff} BID Advair Diskus Diskus Diskus 250-50 250-50 250-50 MCG/DOSE MCG/DOSE MCG/DOSE Lisinopril Lisinopril No 1{table QD Lisinopril 10 MG 10 MG t} 10 MG Folic Acid Folic Acid No 1{table QD Folic Acid 1 MG 1 MG t} 1 MG Atorvastati Atorvastati No 1{table QD Atorvastat n Calcium n Calcium t} in Calcium 40 MG 40 MG 40 MG Donepezil Donepezil No 1{table Donepezil HCl 5 MG HCl 5 MG t_at_be HCl 5 MG dtime} Clopidogrel Clopidogrel No 1{table QD Clopidogre Bisulfate Bisulfate t} l 75 MG 75 MG Bisulfate 75 MG Krill Oil Krill Oil No Krill Oil 1000 MG 1000 MG 1000 MG Aspirin 81 Aspirin 81 No 1{table QD Aspirin 81 81 MG 81 MG t} 81 MG ProAir HFA ProAir HFA No 2{puffs QID ProAir HFA 108 (90 108 (90 _as_nee 108 (90 Base) Base) ded} Base) MCG/ACT MCG/ACT MCG/ACT Metoprolol Metoprolol No 1{table BID Metoprolol Tartrate 25 Tartrate 25 t_with_ Tartrate MG MG food} 25 MG Furosemide Furosemide No 1{table QD Furosemide 20 MG 20 MG t} 20 MG Advair Advair No 1{puff} BID Advair Diskus Diskus Diskus 250-50 250-50 250-50 MCG/DOSE MCG/DOSE MCG/DOSE Lisinopril Lisinopril No 1{table QD Lisinopril 10 MG 10 MG t} 10 MG Folic Acid Folic Acid No 1{table QD Folic Acid 1 MG 1 MG t} 1 MG Atorvastati Atorvastati No 1{table QD Atorvastat n Calcium n Calcium t} in Calcium 40 MG 40 MG 40 MG Donepezil Donepezil No 1{table Donepezil HCl 5 MG HCl 5 MG t_at_be HCl 5 MG dtime} Clopidogrel Clopidogrel No 1{table QD Clopidogre Bisulfate Bisulfate t} l 75 MG 75 MG Bisulfate 75 MG Krill Oil Krill Oil No Krill Oil 1000 MG 1000 MG 1000 MG Aspirin 81 Aspirin 81 No 1{table QD Aspirin 81 81 MG 81 MG t} 81 MG ProAir HFA ProAir HFA No 2{puffs QID ProAir HFA 108 (90 108 (90 _as_nee 108 (90 Base) Base) ded} Base) MCG/ACT MCG/ACT MCG/ACT Metoprolol Metoprolol No 1{table BID Metoprolol Tartrate 25 Tartrate 25 t_with_ Tartrate MG MG food} 25 MG Furosemide Furosemide No 1{table QD Furosemide 20 MG 20 MG t} 20 MG Lisinopril Lisinopril No 1{table QD Lisinopril 10 MG 10 MG t} 10 MG Krill Oil Krill Oil No Krill Oil 1000 MG 1000 MG 1000 MG Atorvastati Atorvastati No 1{table QD Atorvastat n Calcium n Calcium t} in Calcium 40 MG 40 MG 40 MG Donepezil Donepezil No 1{table Donepezil HCl 5 MG HCl 5 MG t_at_be HCl 5 MG dtime} Clopidogrel Clopidogrel No 1{table QD Clopidogre Bisulfate Bisulfate t} l 75 MG 75 MG Bisulfate 75 MG Folic Acid Folic Acid No Folic Acid 1 MG 1 MG 1 MG Advair Advair No 1{puff} BID Advair Diskus Diskus Diskus 250-50 250-50 250-50 MCG/DOSE MCG/DOSE MCG/DOSE Aspirin 81 Aspirin 81 No 1{table QD Aspirin 81 81 MG 81 MG t} 81 MG ProAir HFA ProAir HFA No 2{puffs QID ProAir HFA 108 (90 108 (90 _as_nee 108 (90 Base) Base) ded} Base) MCG/ACT MCG/ACT MCG/ACT Metoprolol Metoprolol No 1{table BID Metoprolol Tartrate 25 Tartrate 25 t_with_ Tartrate MG MG food} 25 MG Furosemide Furosemide No 1{table QD Furosemide 20 MG 20 MG t} 20 MG Lisinopril Lisinopril No 1{table QD Lisinopril 10 MG 10 MG t} 10 MG Krill Oil Krill Oil No Krill Oil 1000 MG 1000 MG 1000 MG Atorvastati Atorvastati No 1{table QD Atorvastat n Calcium n Calcium t} in Calcium 40 MG 40 MG 40 MG Donepezil Donepezil No 1{table Donepezil HCl 5 MG HCl 5 MG t_at_be HCl 5 MG dtime} Clopidogrel Clopidogrel No 1{table QD Clopidogre Bisulfate Bisulfate t} l 75 MG 75 MG Bisulfate 75 MG Folic Acid Folic Acid No Folic Acid 1 MG 1 MG 1 MG Advair Advair No 1{puff} BID Advair Diskus Diskus Diskus 250-50 250-50 250-50 MCG/DOSE MCG/DOSE MCG/DOSE Aspirin 81 Aspirin 81 No 1{table QD Aspirin 81 81 MG 81 MG t} 81 MG ProAir HFA ProAir HFA No 2{puffs QID ProAir HFA 108 (90 108 (90 _as_nee 108 (90 Base) Base) ded} Base) MCG/ACT MCG/ACT MCG/ACT Metoprolol Metoprolol No 1{table BID Metoprolol Tartrate 25 Tartrate 25 t_with_ Tartrate MG MG food} 25 MG Furosemide Furosemide No 1{table QD Furosemide 20 MG 20 MG t} 20 MG Lisinopril Lisinopril No 1{table QD Lisinopril 10 MG 10 MG t} 10 MG Krill Oil Krill Oil No Krill Oil 1000 MG 1000 MG 1000 MG Atorvastati Atorvastati No 1{table QD Atorvastat n Calcium n Calcium t} in Calcium 40 MG 40 MG 40 MG Donepezil Donepezil No 1{table Donepezil HCl 5 MG HCl 5 MG t_at_be HCl 5 MG dtime} Clopidogrel Clopidogrel No 1{table QD Clopidogre Bisulfate Bisulfate t} l 75 MG 75 MG Bisulfate 75 MG Folic Acid Folic Acid No Folic Acid 1 MG 1 MG 1 MG Advair Advair No 1{puff} BID Advair Diskus Diskus Diskus 250-50 250-50 250-50 MCG/DOSE MCG/DOSE MCG/DOSE Donepezil Donepezil No 1{table Donepezil HCl 5 MG HCl 5 MG t_at_be HCl 5 MG dtime} Advair Advair No 1{puff} BID Advair Diskus Diskus Diskus 250-50 250-50 250-50 MCG/DOSE MCG/DOSE MCG/DOSE Clopidogrel Clopidogrel No 1{table QD Clopidogre Bisulfate Bisulfate t} l 75 MG 75 MG Bisulfate 75 MG Krill Oil Krill Oil No Krill Oil 1000 MG 1000 MG 1000 MG Folic Acid Folic Acid No Folic Acid 1 MG 1 MG 1 MG Isosorbide Isosorbide No Isosorbide Mononitrate Mononitrate Mononitrat ER 60 MG ER 60 MG e ER 60 MG Aspirin 81 Aspirin 81 No 1{table QD Aspirin 81 81 MG 81 MG t} 81 MG Furosemide Furosemide No 1{table QD Furosemide 20 MG 20 MG t} 20 MG ProAir HFA ProAir HFA No 2{puffs QID ProAir HFA 108 (90 108 (90 _as_nee 108 (90 Base) Base) ded} Base) MCG/ACT MCG/ACT MCG/ACT Atorvastati Atorvastati No 1{table QD Atorvastat n Calcium n Calcium t} in Calcium 40 MG 40 MG 40 MG Lisinopril Lisinopril No 1{table BID Lisinopril 10 MG 10 MG t} 10 MG Donepezil Donepezil No 1{table Donepezil HCl 5 MG HCl 5 MG t_at_be HCl 5 MG dtime} Advair Advair No 1{puff} BID Advair Diskus Diskus Diskus 250-50 250-50 250-50 MCG/DOSE MCG/DOSE MCG/DOSE Clopidogrel Clopidogrel No 1{table QD Clopidogre Bisulfate Bisulfate t} l 75 MG 75 MG Bisulfate 75 MG Krill Oil Krill Oil No Krill Oil 1000 MG 1000 MG 1000 MG Folic Acid Folic Acid No Folic Acid 1 MG 1 MG 1 MG Isosorbide Isosorbide No Isosorbide Mononitrate Mononitrate Mononitrat ER 60 MG ER 60 MG e ER 60 MG Aspirin 81 Aspirin 81 No 1{table QD Aspirin 81 81 MG 81 MG t} 81 MG Furosemide Furosemide No 1{table QD Furosemide 20 MG 20 MG t} 20 MG ProAir HFA ProAir HFA No 2{puffs QID ProAir HFA 108 (90 108 (90 _as_nee 108 (90 Base) Base) ded} Base) MCG/ACT MCG/ACT MCG/ACT Atorvastati Atorvastati No 1{table QD Atorvastat n Calcium n Calcium t} in Calcium 40 MG 40 MG 40 MG Lisinopril Lisinopril No 1{table BID Lisinopril 10 MG 10 MG t} 10 MG Donepezil Donepezil No 1{table Donepezil HCl 5 MG HCl 5 MG t_at_be HCl 5 MG dtime} Advair Advair No 1{puff} BID Advair Diskus Diskus Diskus 250-50 250-50 250-50 MCG/DOSE MCG/DOSE MCG/DOSE Clopidogrel Clopidogrel No 1{table QD Clopidogre Bisulfate Bisulfate t} l 75 MG 75 MG Bisulfate 75 MG Krill Oil Krill Oil No Krill Oil 1000 MG 1000 MG 1000 MG Folic Acid Folic Acid No Folic Acid 1 MG 1 MG 1 MG Isosorbide Isosorbide No Isosorbide Mononitrate Mononitrate Mononitrat ER 60 MG ER 60 MG e ER 60 MG Aspirin 81 Aspirin 81 No 1{table QD Aspirin 81 81 MG 81 MG t} 81 MG Furosemide Furosemide No 1{table QD Furosemide 20 MG 20 MG t} 20 MG ProAir HFA ProAir HFA No 2{puffs QID ProAir HFA 108 (90 108 (90 _as_nee 108 (90 Base) Base) ded} Base) MCG/ACT MCG/ACT MCG/ACT Atorvastati Atorvastati No 1{table QD Atorvastat n Calcium n Calcium t} in Calcium 40 MG 40 MG 40 MG Lisinopril Lisinopril No 1{table BID Lisinopril 10 MG 10 MG t} 10 MG Atorvastati Atorvastati No 1{table QD Atorvastat n Calcium n Calcium t} in Calcium 40 MG 40 MG 40 MG Advair Advair No 1{puff} BID Advair Diskus Diskus Diskus 250-50 250-50 250-50 MCG/DOSE MCG/DOSE MCG/DOSE Isosorbide Isosorbide No Isosorbide Mononitrate Mononitrate Mononitrat ER 60 MG ER 60 MG e ER 60 MG Folic Acid Folic Acid No Folic Acid 1 MG 1 MG 1 MG Clopidogrel Clopidogrel No 1{table QD Clopidogre Bisulfate Bisulfate t} l 75 MG 75 MG Bisulfate 75 MG Donepezil Donepezil No 1{table Donepezil HCl 5 MG HCl 5 MG t_at_be HCl 5 MG dtime} ProAir HFA ProAir HFA No 2{puffs QID ProAir HFA 108 (90 108 (90 _as_nee 108 (90 Base) Base) ded} Base) MCG/ACT MCG/ACT MCG/ACT Aspirin 81 Aspirin 81 No 1{table QD Aspirin 81 81 MG 81 MG t} 81 MG Furosemide Furosemide No 1{table QD Furosemide 20 MG 20 MG t} 20 MG Krill Oil Krill Oil No Krill Oil 1000 MG 1000 MG 1000 MG Vitamin D3 Vitamin D3 No 1{capsu Vitamin D3 31593 UNIT 71090 UNIT le} 18488 UNIT Lisinopril Lisinopril No 1{table BID Lisinopril 10 MG 10 MG t} 10 MG Atorvastati Atorvastati No 1{table QD Atorvastat n Calcium n Calcium t} in Calcium 40 MG 40 MG 40 MG Vitamin D3 Vitamin D3 No Vitamin D3 1.25 MG 1.25 MG 1.25 MG (74722 UT) (14772 UT) (08381 UT) Vitamin D3 Vitamin D3 No 1{capsu Vitamin D3 72407 UNIT 68047 UNIT le} 77753 UNIT Advair Advair No 1{puff} BID Advair Diskus Diskus Diskus 250-50 250-50 250-50 MCG/DOSE MCG/DOSE MCG/DOSE Lisinopril Lisinopril No 1{table BID Lisinopril 20 MG 20 MG t} 20 MG Krill Oil Krill Oil No Krill Oil 1000 MG 1000 MG 1000 MG Folic Acid Folic Acid No Folic Acid 1 MG 1 MG 1 MG Isosorbide Isosorbide No Isosorbide Mononitrate Mononitrate Mononitrat ER 60 MG ER 60 MG e ER 60 MG Aspirin 81 Aspirin 81 No 1{table QD Aspirin 81 81 MG 81 MG t} 81 MG Donepezil Donepezil No 1{table Donepezil HCl 5 MG HCl 5 MG t_at_be HCl 5 MG dtime} ProAir HFA ProAir HFA No 2{puffs QID ProAir HFA 108 (90 108 (90 _as_nee 108 (90 Base) Base) ded} Base) MCG/ACT MCG/ACT MCG/ACT Clopidogrel Clopidogrel No 1{table QD Clopidogre Bisulfate Bisulfate t} l 75 MG 75 MG Bisulfate 75 MG Furosemide Furosemide No 1{table QD Furosemide 20 MG 20 MG t} 20 MG Clopidogrel Clopidogrel No 1{table QD Clopidogre Bisulfate Bisulfate t} l 75 MG 75 MG Bisulfate 75 MG Aspirin 81 Aspirin 81 No 1{table QD Aspirin 81 81 MG 81 MG t} 81 MG Doxycycline Doxycycline No Doxycyclin Hyclate 100 Hyclate 100 e Hyclate MG MG 100 MG Donepezil Donepezil No 1{table Donepezil HCl 5 MG HCl 5 MG t_at_be HCl 5 MG dtime} Lipitor 10 Lipitor 10 No 1{table QD Lipitor 10 MG MG t} MG Furosemide Furosemide No 1{table QD Furosemide 20 MG 20 MG t} 20 MG Metoprolol Metoprolol No 1{table BID Metoprolol Tartrate 25 Tartrate 25 t_with_ Tartrate MG MG food} 25 MG Advair Advair No 1{puff} BID Advair Diskus Diskus Diskus 250-50 250-50 250-50 MCG/DOSE MCG/DOSE MCG/DOSE Ultram 50 Ultram 50 No QD Ultram 50 MG MG MG Lisinopril Lisinopril No 1{table QD Lisinopril 10 MG 10 MG t} 10 MG Crestor 20 Crestor 20 No QD Crestor 20 MG MG MG Atorvastati Atorvastati No 1{table QD Atorvastat n Calcium n Calcium t} in Calcium 40 MG 40 MG 40 MG Sulfamethox Sulfamethox No Sulfametho azole-Trime azole-Trime xazole-Tri thoprim thoprim methoprim 800-160 MG 800-160 MG 800-160 MG ProAir HFA ProAir HFA No 2{puffs QID ProAir HFA 108 (90 108 (90 _as_nee 108 (90 Base) Base) ded} Base) MCG/ACT MCG/ACT MCG/ACT Krill Oil Krill Oil No Krill Oil 1000 MG 1000 MG 1000 MG Aspirin 81 Aspirin 81 2020- Ashley 1 tablet [facility] 02-28 [facility] 00:[facility] - [facility] :00 [facility] Immunizations Ordered Immunization Filled Immunization Date Status Commen ts Source Name Name FLUZONE HIGH DOSE FLUZONE HIGH DOSE 2019-02-14 Completed [facility] OVER 65 OVER 65 09:28:00 - [facility] FLUZONE HIGH DOSE FLUZONE HIGH DOSE 2019-02-14 Completed [facility] OVER 65 OVER 65 09:28:00 - [facility] FLUZONE HIGH DOSE FLUZONE HIGH DOSE 2019-02-14 Completed [facility] OVER 65 OVER 65 09:28:00 - [facility] FLUZONE HIGH DOSE FLUZONE HIGH DOSE 2019-02-14 Completed [facility] OVER 65 OVER 65 09:28:00 - [facility] FLUZONE HIGH DOSE FLUZONE HIGH DOSE 2019-02-14 Completed [facility] OVER 65 OVER 65 09:28:00 - [facility] FLUZONE HIGH DOSE FLUZONE HIGH DOSE 2019-02-14 Completed [facility] OVER 65 OVER 65 09:28:00 - [facility] FLUZONE HIGH DOSE FLUZONE HIGH DOSE 2019-02-14 Completed [facility] OVER 65 OVER 65 09:28:00 - [facility] FLUZONE HIGH DOSE FLUZONE HIGH DOSE 2019-02-14 Completed [facility] OVER 65 OVER 65 09:28:00 - [facility] FLUZONE HIGH DOSE FLUZONE HIGH DOSE 2019-02-14 Completed [facility] OVER 65 OVER 65 09:28:00 - [facility] FLUZONE HIGH DOSE FLUZONE HIGH DOSE 2019-02-14 Completed [facility] OVER 65 OVER 65 09:28:00 - [facility] FLUZONE HIGH DOSE FLUZONE HIGH DOSE 2019-02-14 Completed [facility] OVER 65 OVER 65 09:28:00 - [facility] FLUZONE HIGH DOSE FLUZONE HIGH DOSE 2019-02-14 Completed [facility] OVER 65 OVER 65 09:28:00 - [facility] FLUZONE HIGH DOSE FLUZONE HIGH DOSE 2019-02-14 Completed [facility] OVER 65 OVER 65 09:28:00 - [facility] FLUZONE HIGH DOSE FLUZONE HIGH DOSE 2019-02-14 Completed [facility] OVER 65 OVER 65 09:28:00 - [facility] FLUZONE HIGH DOSE FLUZONE HIGH DOSE 2019-02-14 Completed [facility] OVER 65 OVER 65 09:28:00 - [facility] FLUZONE HIGH DOSE FLUZONE HIGH DOSE 2019-02-14 Completed [facility] OVER 65 OVER 65 09:28:00 - [facility] Vital Signs Vital Name Observation Time Observation Value Comments Source Systolic blood 2022-02-09 14:34:00 116 mm[Hg] Univer sity of pressure [facility] Diastolic blood 2022-02-09 14:34:00 60 mm[Hg] Unive rsity of [facility] Heart rate 2022-02-09 14:34:00 59 /min Universi ty [facility] Body temperature 2022-02-09 14:34:00 36.72 Alma Delia [facility] Respiratory rate 2022-02-09 14:34:00 12 /min [facility] Body height 2022-02-09 14:34:00 175.3 cm Universi ty [facility] Body weight 2022-02-09 14:34:00 87.499 kg Universi ty of [facility] BMI 2022-02-09 14:34:00 28.49 kg/m2 [facility] Oxygen saturation in 2022-02-09 14:34:00 98 /min [facility] Arterial blood by [facility] Pulse oximetry Branch Systolic blood 2021-10-28 21:35:00 148 mm[Hg] Univer sity of pressure [facility] Diastolic blood 2021-10-28 21:35:00 74 mm[Hg] Unive rsity of pressure [facility] Heart rate 2021-10-28 21:35:00 59 /min Universi ty [facility] Body temperature 2021-10-28 21:35:00 36.78 Alma Delia [facility] Res[facility] rate 2021-10-28 21:35:00 17 /min [facility] Oxygen saturation in 2021-10-28 21:35:00 93 /min University of Arterial blood by [facility] Pulse oximetry [place] Body height 2021-10-17 04:53:00 175.3 cm [facility] Body weight 2021-10-17 04:53:00 99.791 kg [facility] BMI 2021-10-17 04:53:00 32.49 kg/m2 [facility] height 2021-02-02 13:00:00 69.25 [in_i] Common [facility] weight 2021-02-02 13:00:00 212 [lb_av] [facility] temperature 2021-02-02 13:00:00 98 [degF] [facility] bmi 2021-02-02 13:00:00 31.08 kg/m2 [facility] blood pressure 2021-02-02 13:00:00 122 mm[Hg] Common [facility] - systolic [facility] blood pressure 2021-02-02 13:00:00 70 mm[Hg] Common [facility] - diastolic [facility] height 2021-01-07 14:00:00 69.25 [in_i] [facility] weight 2021-01-07 14:00:00 213.2 [lb_av] [facility] temperature 2021-01-07 14:00:00 97.2 [degF] [facility] bmi 2021-01-07 14:00:00 31.25 kg/m2 [facility] oximetry 2021-01-07 14:00:00 95 % [facility] respiratory rate 2021-01-07 14:00:00 17 /min Comm on [facility] blood pressure 2021-01-07 14:00:00 128 mm[Hg] Common [facility] - systolic [facility] blood pressure 2021-01-07 14:00:00 68 mm[Hg] Common [facility] - diastolic [facility] height 2020-11-03 15:20:00 69.25 [in_i] [facility] 2020-11-03 15:20:00 218.1 [lb_av] Common [facility] temperature 2020-11-03 15:20:00 97.2 [degF] [facility] 2020-11-03 15:20:00 31.97 kg/m2 Common S [facility] oximetry 2020-11-03 15:20:00 95 % Common S [facility] respiratory rate 2020-11-03 15:20:00 18 /min Comm on [facility] blood pressure 2020-11-03 15:20:00 138 mm[Hg] Common [facility] - systolic [facility] blood pressure 2020-11-03 15:20:00 70 mm[Hg] Common [facility] - diastolic [facility] height 2020-09-01 11:30:00 69.25 [in_i] Common [facility] weight 2020-09-01 11:30:00 216.9 [lb_av] [facility] temperature 2020-09-01 11:30:00 97.0 [degF] Common [facility] bmi 2020-09-01 11:30:00 31.8 kg/m2 [facility] oximetry 2020-09-01 11:30:00 96 % Common [facility] respiratory rate 2020-09-01 11:30:00 17 /min Comm on [facility] blood pressure 2020-09-01 11:30:00 133 mm[Hg] Common [facility] - systolic [facility] blood pressure 2020-09-01 11:30:00 70 mm[Hg] Common [facility] - diastolic [facility] height 2020-07-21 09:50:00 69.25 [in_i] Common [facility] weight 2020-07-21 09:50:00 214.5 [lb_av] Common [facility] temperature 2020-07-21 09:50:00 97.3 [degF] Common S pirit [facility] bmi 2020-07-21 09:50:00 31.44 kg/m2 Common S pirit [facility] oximetry 2020-07-21 09:50:00 97 % [facility] respiratory rate 2020-07-21 09:50:00 18 /min Comm on [facility] blood pressure 2020-07-21 09:50:00 135 mm[Hg] Common [facility] - systolic [facility] blood pressure 2020-07-21 09:50:00 70 mm[Hg] Common [facility] - diastolic [facility] height 2020-05-26 09:00:00 69.25 [in_i] Common S [facility] weight 2020-05-26 09:00:00 212.7 [lb_av] [facility] temperature 2020-05-26 09:00:00 97.3 [degF] Common [facility] bmi 2020-05-26 09:00:00 31.18 kg/m2 [facility] 2020-05-26 09:00:00 97 % [facility] respiratory rate 2020-05-26 09:00:00 19 /min Comm on [facility] blood pressure 2020-05-26 09:00:00 137 mm[Hg] Common [facility] - systolic [facility] blood pressure 2020-05-26 09:00:00 75 mm[Hg] Common [facility] - diastolic [facility] height 2020-05-26 09:00:00 69.25 [in_i] Common [facility] weight 2020-05-26 09:00:00 212.7 [lb_av] [facility] temperature 2020-05-26 09:00:00 97.3 [degF] Common S pirit [facility] bmi 2020-05-26 09:00:00 31.18 kg/m2 Common S [facility]irit - [facility] oximetry 2020-05-26 09:00:00 97 % Common S [facility]irit - [facility] blood pressure 2020-05-26 09:00:00 137 mm[Hg] [facility] - systolic [facility] blood pressure 2020-05-26 09:00:00 75 mm[Hg] [facility] - diastolic [facility] Procedures Procedure Date / Time Performing Source Performed Clinician EXTERNAL PROVIDER RECORDS 2022-02-15 Doctor Unassigned, [facility] 05:01:00 [facility] ASSIGNMENT OF BENEFITS 2022-02-09 Doctor Unassigned, [facility] 14:17:19 [facility] COVID-19 (ID NOW RAPID 2021-10-28 [facility] 19:23:00 [facility] [place] LAB ONLY COVID INTERPRETATION 2021-10-28 [facility] 19:23:00 [facility] [place] BASIC METABOLIC PANEL (NA, K, 2021-10-26 [facility] CL, CO2, GLUCOSE, BUN, 10:49:00 Medical B ranch CREATININE, [place]) COVID-19 (ID NOW RAPID 2021-10-25 [facility] TESTING) 19:00:00 Medical Branch LAB ONLY COVID INTERPRETATION 2021-10-25 [facility] 19:00:00 Medical Branch MAGNESIUM 2021-10-25 [facility] 10:38:00 Medical Branch HEPATIC FUNCTION PANEL 2021-10-25 [facility] ([id number]) (ALB,T.PRO,BILI 10:38:00 Medical Branch T,BU/BC,ALT,AST,ALK PHOS) BASIC METABOLIC PANEL (NA, K, 2021-10-25 [facility] CL, CO2, GLUCOSE, BUN, 10:38:00 Medical [facility] CREATININE, CA) CBC WITH DIFF 2021-10-25 [facility] 10:38:00 Medical Branch PROTHROMBIN TIME / INR 2021-10-25 [facility] 10:38:00 [facility] MAGNESIUM 2021-10-24 Naldo [facility] 10:22:00 [facility] BASIC METABOLIC PANEL (NA, K, 2021-10-24 [facility], CO2, GLUCOSE, BUN, 10:22:00 [facility] CREATININE, CA) CBC WITH DIFF 2021-10-24 Naldo [facility] 10:22:00 [facility] POCT GLUCOSE (AUTOMATED) 2021-10-24 Beatriz Villarreal [facility] 00:09:00 [facility] CEREBROSPINAL FLUID PROTEIN 2021-10-21 Naldo [facility] 22:45:00 [facility] CEREBROSPINAL FLUID GLUCOSE 2021-10-21 Naldo [facility] 22:45:00 [facility] BODY FLUID DIRECT COUNT 2021-10-21 Naldo Milad [facility] 22:45:00 [facility] 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 2021-10-21 Naldo [facility] 22:45:00 [facility] FUNGUS (ROUTINE) CULTURE 2021-10-21 Naldo [facility] 22:45:00 [facility] EXTRA TUBE CSF 2021-10-21 [facility] 22:45[facility]00 [facility] CSF CULTURE 2021-10-21 Naldo [facility] 22:45:00 [facility] MAGNESIUM 2021-10-20 Naldo [facility] 08:38:00 [facility] BASIC METABOLIC PANEL (NA, K, 2021-10-20 Milad Hitchcock [facility] CL, CO2, GLUCOSE, BUN, 08:38:00 [facility] CREATININE, CA) CBC WITH DIFF 2021-10-20 Naldo [facility] 08:38:00 [facility] MISCELLANEOUS SEND OUT TEST 2021-10-20 Naldo [facility] 08:38:00 [facility] THYROID PEROXIDASE (TPO) AB 2021-10-20 Vickiejanelangus Milad [facility] 08:38:00 [facility] MR BRAIN WO CONTRAST 2021-10-20 [facility] 02:09:16 [facility] TRANSTHORACIC ECHO (TTE) 2021-10-18 [facility] COMPLETE 13:42:10 Medical Branch MAGNESIUM 2021-10-18 [facility] 09:35:00 [facility] BASIC METABOLIC PANEL (NA, K, 2021-10-18 [facility] CL, CO2, GLUCOSE, BUN, 09:35:00 Medical ranch CREATININE, CA) CBC WITH DIFF 2021-10-18 [facility] 09:35:00 [facility] ELECTROENCEPHALOGRAM 2021-10-18 [facility] 00:00:00 Medical [place] URINE CULTURE 2021-10-17 [facility] 19:13:00 [facility] AMMONIA, PLASMA 2021-10-17 [facility] 19:07:00 [facility] URINE DRUG (LCMSMS) - 2021-10-17 [facility] COMPREHENSIVE DRUG PANEL 19:07:00 [facility] XR BONE SURVEY 2021-10-17 [facility] 15:36:00 Medical Branch XR CHEST 1 VW 2021-10-17 [facility] 15:36:00 Medical [place] XR KUB 2021-10-17 [facility] 15:36:00 [facility] CT ABDOMEN PELVIS WO CONTRAST 2021-10-17 [facility] 14:14:11 Medical [place] VITAMIN B6, PLASMA 2021-10-17 Ramiro [facility] 11:49:00 [facility] HB ECG ROUTINE & RHYTHM STRIP 2021-10-17 Ruperto Mcmullen [facility] 11:41:49 [facility] Branch CREATINE KINASE 2021-10-17 Ramiro [facility] 11:29:00 Medical Branch VITAMIN B12, LEVEL 2021-10-17 Ramiro [facility] 11:29:00 [facility] FOLATE 2021-10-17 Ramiro [facility] 11:29:00 [facility] Branch HEPATIC FUNCTION PANEL 2021-10-17 Stefan Rubio [facility] ([id number]) (ALB,T.PRO,BILI 11:29:00 [facility] T,BU/BC,ALT,AST,ALK PHOS) BASIC METABOLIC PANEL (NA, K, 2021-10-17 Ramiro [facility] CL, CO2, GLUCOSE, BUN, 11:29:00 Medical ranch CREATININE, CA) CBC WITH DIFF 2021-10-17 Ramiro [facility] 11:29:00 [facility] VITAMIN B1 (THIAMINE), WHOLE 2021-10-17 Stefan Rubio [facility] BLOOD 11:29:00 [facility] HB ECG ROUTINE & RHYTHM STRIP 2021-10-17 Ramiro [facility] 06:18:05 [facility] XR STROKE CHEST 1 VW 2021-10-17 Ruperto Mcmullen [facility] 06:14:35 [facility] URINE DRUG (IMMUNOASSAY) - 2021-10-17 Stefan Rubio [facility] COMPREHENSIVE DRUG SCREEN 06:04:00 [facility] URINALYSIS 2021-10-17 Ruperto Mcmullen [facility] 06:04:00 [facility] CT STROKE HEAD WO CONTRAST 2021-10-17 Ruperto Mcmullen [facility] 05:53:01 [facility] CT STROKE ANGIOGRAM HEAD 2021-10-17 Ruperto Mcmullen [facility] 05:53:01 [facility] Branch CT STROKE ANGIOGRAM NECK 2021-10-17 Ruperto Mcmullen [facility] 05:53:01 [facility] CT STROKE PERFUSION W 2021-10-17 Ruperto Mcmullen [facility] CONTRAST 05:53:01 [facility] Branch COVID-19 (ID NOW RAPID 2021-10-17 Ruperto Mcmullne [facility] TESTING) 05:35:00 Medical [place] LAB ONLY COVID INTERPRETATION 2021-10-17 Ruperto Mcmullen [facility] 05:35:00 Medical Branch MAGNESIUM 2021-10-[address] [facility] ex 04:55:00 Medical Branch TROPONIN I 2021-10-[address] [facility] ex 04:55:00 Medical Branch BASIC METABOLIC PANEL (NA, K, 2021-10-17 Ruperto Mcmullen [facility] CL, CO2, GLUCOSE, BUN, 04:55:00 Medical [facility] CREATININE, CA) CBC WITHOUT DIFF 2021-10-17 Ruperto Mcmullen [facility] 04:55:00 Medical Branch PROTHROMBIN TIME / INR 2021-10-17 Ruperto Mcmullen [facility] 04:55:00 Medical Branch ACTIVATED PARTIAL THRMPLAS 2021-10-17 Ruperto Mcmullen [facility] CRISTAL 04:55:00 Medical Branch NOTICE OF PRIVACY PRACTICES 2021-10-17 Doctor Unarancho, [facility] 04:49:54 [facility] HB ECG ROUTINE & RHYTHM STRIP 2021-10-17 Ruperto Mcmullen [facility] 04:48:12 Medical Branch POCT GLUCOSE (AUTOMATED) 2021-10-17 Doctor Unarancho, [facility] 04:46:00 [facility] CONSENT/REFUSAL FOR DIAGNOSIS 2021-10-17 Doctor Unarancho, [facility] AND TREATMENT 04:45:39 [facility] AGREEMENTS AUTHORIZATIONS AND 2021-10-16 Doctor Gladys, [facility] IRREVOCABLE ASSIGNMENTS (FORM 05:01:00 [facility] [place] [facility] 2000) Plan of Care Planned Activity Planned Date Details Comments Source Future Scheduled 2022-03-02 HEPATITIS B VACCINES Met [facility] Test 14:01:18 (1 of 3 - 3-dose series) [code = HEPATITIS B VACCINES (1 of 3 - 3-dose series)] Future Scheduled 2022-03-02 COVID-19 VACCINE (#1) [facility] Test 14:01:18 [code = COVID-19 VACCINE (#1)] Future Scheduled 2022-03-02 65+ PNEUMOCOCCAL [facility] Test 14:01:18 VACCINE (1 - PCV) [code = 65+ PNEUMOCOCCAL VACCINE (1 - PCV)] Future Scheduled 2022-03-02 Hepatitis C screening [facility] Test 14:01:18 (procedure) [code = 593288305] Future Scheduled 2022-03-02 COLONOSCOPY SCREENING [facility] Test 14:01:18 [code = COLONOSCOPY SCREENING] Future Scheduled 2022-03-02 SHINGLES VACCINES (1 Met [facility] Test 14:01:18 of 2) [code = SHINGLES VACCINES (1 of 2)] Future Scheduled 2022-03-02 INFLUENZA VACCINE Method [facility] Test 14:01:18 [code = INFLUENZA VACCINE] Encounters Start End Encounter Admission Attending Care Care Encounter Source Date/Time Date/Time Type Type Clinicians Facility Department ID 2022-02-18 [id number] Univers 07:46:08 DAKOTAH wagner [facility] 2021-05-26 Out[facility] Tate, [facility] Common 13:56:33 Dwight 28117 [facility] 2021-05-26 [facility] 13:47:39 Dwight 26196 [facility] 2021-05-26 [facility] 13:22:07 Wdight 83040 [facility] 2021-05-26 [facility] 12:54:37 Dwight 95849 [facility] 2021-05-26 [facility] [id number] Common 12:40:48 Dwight 52766 [facility] 2021-05-26 [facility] [id number] Common 12:25:17 Dwight 71621 [facility] 2021-05-26 [facility] Mill[facility] [id number] Common 12:23:22 [facility] 67709 [facility] 2021-05-26 [facility] [id number] Common 11:31:54 Ashley 68671 [facility] 2021-05-26 Outpatient Millender, [facility] [id number] Common 11:05:19 Ashley 08941 [facility] 2021-05-26 Outpatient RATNA Rizzo [facility] [id number] Common 11:02:17 Ashley 50228 [facility] 2021-05-26 Outpatient RATNA Rizzo [facility] [id number] Common 11:02:16 Ashley 83078 [facility] 2022-02-15 2022-02-15 Orders Doctor MELCHOR [id number] Univers 00:00:00 00:00:00 Only Unassigned, TAVO [id number] ity of [facility] [id number] Nilo as [id number] [address] 2022-02-11 2022-02-11 Letter Sabino [facility] [id number] Univers 00:00:00 00:00:00 (Out) [facility] [id number] [id number] [id number] [address] OFFICE BUILDING 2022-02-10 2022-02-10 Telephone Sabino TXBONITA [id number] Univers 00:00:00 00:00:00 [facility] [id number] [id number] [id number] [address] OFFICE BUILDING 2022-02-09 2022-02-09 Outpatient R SABINO [facility] [id number] Univers 09:30:00 14:41:33 DAKOTAH ity of [facility] 2022-02-09 2022-02-09 Office Sabino [facility] [id number] Univers 09:30:00 14:41:33 Visit [facility] [id number] [id number] [id number] [address] OFFICE BUILDING 2022-02-09 2022-02-09 Orders Doctor ROCHE [id number] Univers 00:00:00 00:00:00 Only Unassigned, TAVO [id number] ity of [facility] [id number] [facility] 009 Branch 2022-02-09 2022-02-09 Telephone [facility] [id number] Univers 00:00:00 00:00:00 [facility] [id number] [id number] [id number] [address] OFFICE BUILDING 2021-12-30 2021-12-30 Telephone [facility] [id number] Univers 00:00:00 00:00:00 [facility] [id number] [id number] [id number] [address] OFFICE BUILDING 2021-10-16 2021-10-28 Inpatient [facility] [id number] Univers 23:49:00 19:00:00 UNRULY ity [facility] 2021-10-16 2021-10-28 Hospital Ruperto Mcmullen 1.2.840. [id number] Univers 23:49:00 19:00:00 Encounter Beatriz Villarreal [id number] 10 ity of [facility] [id number] [place] [id number] [place] [id number] [place] 2021-02-02 2021-02-02 OFFICE STLMLC STLC [id number] Co mmon 00:00:00 00:00:00 VISIT [facility] ESTAB PT - CHI LEVEL 4 [facility] 2021-01-07 2021-01-07 OFFICE STLMLC STLMLC [id number] Co mmon 00:00:00 00:00:00 [facility] ESTAB PT - CHI LEVEL 4 [facility] 2020-12-16 2020-12-16 (TEL) STLMLC STLMLC [id number] Co mmon 00:00:00 00:00:00 [facility] 2020-11-06 2020-11-06 (TEL) STLMLC STLMLC [id number] Co mmon 00:00:00 00:00:00 [facility] 2020-11-03 2020-11-03 (HOSP F/U) STLMLC STLMLC [id number] Common 00:00:00 00:00:00 [facility] 2020-10-23 2020-10-23 (TEL) STLMLC STLMLC [id number] Co mmon 00:00:00 00:00:00 [facility] 2020-10-16 2020-10-16 (TEL) STLMLC STLMLC [id number] Co mmon 00:00:00 00:00:00 [facility] 2020-10-05 2020-10-05 (TEL) STLMLC STLMLC [id number] Co mmon 00:00:00 00:00:00 [facility] 2020-09-08 2020-09-08 (TEL) STLMLC STLMLC [id number] Co mmon 00:00:00 00:00:00 [facility] 2020-09-01 2020-09-01 OFFICE STLMLC STLMLC [id number] Co mmon 00:00:00 00:00:00 VISIT [facility] PT - CHI LEVEL 5 [facility] 2020-08-25 2020-08-25 (TEL) STLMLC STLMLC [id number] Co mmon 00:00:00 00:00:00 [facility] 2020-08-14 2020-08-20 Inpatient [facility]ST[facility], [place] [id number] [place] 00:00:00 00:00:00 DAVID [address] 2020-08-19 2020-08-19 (TEL) STLMLC STLMLC [id number] Co mmon 00:00:00 00:00:00 [facility] 2020-07-21 2020-07-21 OFFICE STLMLC STLMLC [id number] Co mmon 00:00:00 00:00:00 VISIT [facility] PT - CHI LEVEL 4 [facility] 2020-05-26 2020-05-26 OFFICE STLMLC STLMLC [id number] Co mmon 00:00:00 00:00:00 [facility]IT [facility] ESTAB PT - CHI LEVEL 4 [facility] 2020-05-26 2020-05-26 SUB ANNUAL STLMLC STLMLC [id number] Common 00:00:00 00:00:00 MCR [facility] WELLNESS - CHI VISIT [facility] 2020-02-19 2020-02-19 (TEL) STLMLC STLMLC [id number] Co mmon 00:00:00 00:00:00 [facility] 2019-10-29 2019-10-29 Out[facility] [id number] Common 14:45:00 14:45:00 [facility] [address] Sp[address] Road [facility] 2019-10-18 2019-10-18 Outpatient [facility] [id number] Common 15:54:00 15:54:00 t [facility] [address] Spir [address] Road [facility] 2019-08-20 2019-08-20 Outpatient [facility] [id number] Common 22:48:00 22:48:00 t [facility] [address] Spir it Road [facility] 2019-08-20 2019-08-20 Outpatient [facility] [id number] Common 13:00:00 13:00:[address] [facility] 2019-08-13 2019-08-13 Outpatient [facility] [id number] Common 15:02:00 15:02:[address] Sp[address] [facility] 2019-06-28 2019-06-28 Outpatient [facility] [id number] Common 14:00:00 14:00:[address] [facility] 2019-06-04 2019-06-04 Outpatient [facility] [id number] Common 10:30:00 10:30:[address] [facility] 2019-05-21 2019-05-21 Outpatient [facility] [id number] Common 14:30:00 14:30:00 [facility] it Road [facility] 2019-03-20 2019-03-20 Outpatient Mary Ann Garcia [id number] Common 14:00:00 14:00:[address] [facility] Spir it Road [facility] Results Test Description Test Time Test Comments Results Result Comments Source Mis. Sendout- Autoimmune Encephalitis Panel From [facility] [id number] 2021-10-28 13:47:34 Test Item Value Reference Range Interpretation Comme nts Miscellaneous Test (test code = 1359531495) See scanned report Performing Lab (test code = 8903941941) [facility] (NA, K, CL, CO2, GLUCOSE, BUN, CREATININE, CA)2021-10-26 12:06:39 Test Item Value Reference Range Interpretation Comments NA (test code = 136 mmol/L 135-145 2603457784) K (test code = 4.2 mmol/L 3.5-5.0 5196224636) CL (test code = 105 mmol/L 98-108 1679200568) CO2 TOTAL (test code 25 mmol/L 23-31 = 9921777256) AGAP (test code = 2-16 7008841451) BUN (test code = 23 mg/dL 7-23 1213252848) GLUCOSE (test code = 91 mg/dL 70-110 8444179635) CREATININE (test code 1.25 mg/dL 0.60-1.25 = 4116976981) CALCIUM (test code = 8.8 mg/dL 8.6-10.6 6625320739) eGFR (test code = mL/min/1.73m2 2509691676) TYE (test code = TYE) Association of Glomerular Filtration Rate (GFR) and Staging of Kidney Disease* + + +- +| GFR (mL/min/1.73 m2) ?| With Kidney Damage ?| ?Without Kidney Damage+ ------+ ----+ ------+| ?>90 ?| ?Stage one ?| ? Normal ?+ -+ + -+| ?60-89 ?| ?Stage two ?| ? Decreased GFR ? + + +- +| ?30-59 ?| ?Stage three ?| ? Stage three ? + + +- +| ?15-29 ?| ?Stage four ? | ? Stage four ?+ -+ + -+| ?<15 (or dialysis) ? ?| ?Stage five ? | ? Stage five ?+ -+ + -+ *Each stage assumes the associated GFR level has been in effect for at least three months. ?Stages 1 to 5, with or without kidney disease, indicate chronic kidney disease. Notes: Determination of stages one and two (with eGFR >59mL/min/1.73 m2) requires estimation of kidney damage for at least three months as defined by structural or functional abnormalities of the kidney, manifested by either:Pathological abnormalities or Markers of kidney damage (including abnormalities in the composition of the blood or urine or abnormalities in imaging tests). [facility] METABOLIC PANEL (NA, K, CL, CO2, GLUCOSE, BUN, CREATININE, CA)2021-10-25 11:25:18 Test Item Value Reference Range Interpretation Comments NA (test code = 139 mmol/L 135-145 0681880207) K (test code = 4.2 mmol/L 3.5-5.0 7610734775) CL (test code = 108 mmol/L 98-108 5396234515) CO2 TOTAL (test code = 26 mmol/L 23-31 3080990805) AGAP (test code = 2-16 1447381796) BUN (test code = 27 mg/dL 7-23 H 4489298426) GLUCOSE (test code = 95 mg/dL 70-110 5374479853) CREATININE (test code = 1.65 mg/dL 0.60-1.25 H 4817572985) CALCIUM (test code = 8.8 mg/dL 8.6-10.6 0861855044) eGFR (test code = mL/min/1.73m2 8348015782) TYE (test code = TYE) Association of Glomerular Filtration Rate (GFR) and Staging of Kidney Disease* + --+ --+ ------+| GFR (mL/min/1.73 m2) ?| With Kidney Damage ?| ?Without Kidney Damage+ --------+ --------+ +| ?>90 ?| ?Stage one ?| ? Normal ?+ ---+ ---+ -------+| ?60-89 ?| ?Stage two ?| ? Decreased GFR ? + --+ --+ ------+| ?30-59 ?| ?Stage three ?| ? Stage three ? + --+ --+ ------+| ?15-29 ?| ?Stage four ? | ? Stage four ?+ ---+ ---+ -------+| ?<15 (or dialysis) ? ?| ?Stage five ? | ? Stage five ?+ ---+ ---+ -------+ *Each stage assumes the associated GFR level has been in effect for at least three months. ?Stages 1 to 5, with or without kidney disease, indicate chronic kidney disease. Notes: Determination of stages one and two (with eGFR >59mL/min/1.73 m2) requires estimation of kidney damage for at least three months as defined by structural or functional abnormalities of the kidney, manifested by either:Pathological abnormalities or Markers of kidney damage (including abnormalities in the composition of the blood or urine or abnormalities in imaging tests). Lab Interpretation Abnormal (test code = 38430-1) [facility] (ALB,T.PRO,BILI T,BU/BC,ALT,AST,ALK PHOS)2021-10-25 11:25:18 Test Item Value Reference Range Interpretation Comments TOTAL BILI (test code = 5364007310) 0.5 mg/dL 0.1-1.1 BILI UNCON (test code = 1935972596) 0.5 mg/dL 0.1-1.1 BILI CONJ (test code = 2600028561) 0.0 mg/dL 0.0-0.3 T PROTEIN (test code = 6917430407) 6.9 g/dL 6.3-8.2 ALBUMIN (test code = 1653263648) 3.8 g/dL 3.5-5.0 ALK PHOS (test code = 8819600798) 84 U/L 34-122 ALTv (test code = 1742-6) 39 U/L 5-50 AST(SGOT) (test code = 6856936557) 48 U/L 13-40 H Lab Interpretation (test code = Abnormal 55430-9) [facility] 11:25:18 Test Item Value Reference Range Interpretation Comments MAGNESIUM (test code = 0504909777) 2.2 mg/dL 1.7-2.4 Lab Interpretation (test code = Normal 13310-6) [facility] WITH [id number] 11:03:54 Test Item Value Reference Range Interpretation Comments WBC (test code = See_Comment [Automated 6690-2) message] The sy stem which generated this result transmitted reference range : 4.20 - 10.70 10*3/?L. The reference range was not used to interpret this result as normal/abnormal . RBC (test code = See_Comment L [Automated 789-8) message] The sy stem which generated this result transmitted reference range : 4.26 - 5.52 10*6/?L. The reference range was not used to interpret this result as normal/abnormal . HGB (test code = 12.3 g/dL 12.2-16.4 718-7) HCT (test code = 35.5 % 38.4-49.3 L 4544-3) MCV (test code = 83.7 fL 81.7-95.6 787-2) MCH (test code = 29.0 pg 26.1-32.7 785-6) MCHC (test code = 34.6 g/dL 31.2-35.0 786-4) RDW-SD (test code = 39.5 fL 38.5-51.6 83519-1) RDW-CV (test code = 13.0 % 12.1-15.4 788-0) PLT (test code = See_Comment [Automated 777-3) message] The sy stem which generated this result transmitted reference range : 150 - 328 10*3/ ?L. The reference r mey was not used to interpret this result as normal/abnormal . MPV (test code = 10.9 fL 9.8-13.0 10797-7) NRBC/100 WBC (test See_Comment [Automat ed code = 5009602481) message] The system which generated this result transmitted reference range : 0.0 - 10.0 /100 WBCs. The refer ence range was not u sed to interpret th is result as normal/abnormal . NRBC x10^3 (test code <0.01 See_Comment [Auto mated = 0410457616) message] The s ystem which generated this result transmitted reference range : 10*3/?L. The reference range was not used to interpret this result as normal/abnormal . GRAN MAT (NEUT) % 66.4 % (test code = 770-8) IMM GRAN % (test code 1.20 % = 8386089522) LYMPH % (test code = 21.9 % 736-9) MONO % (test code = 7.2 % 5905-5) EOS % (test code = 2.7 % 713-8) BASO % (test code = 0.6 % 706-2) GRAN MAT x10^3(ANC) 5.66 10*3/uL 1.99-6.95 (test code = 2099595736) IMM GRAN x10^3 (test 0.10 10*3/uL 0.00-0.06 H code = 0241411305) LYMPH x10^3 (test code 1.86 10*3/uL 1.09-3.23 = 731-0) MONO x10^3 (test code 0.61 10*3/uL 0.36-1.02 = 742-7) EOS x10^3 (test code = 0.23 10*3/uL 0.06-0.53 711-2) BASO x10^3 (test code 0.05 10*3/uL 0.01-0.09 = 704-7) Lab Interpretation Abnormal (test code = 14398-6) [facility] / [id number] 11:03:54 Test Item Value Reference Range Interpretation Comments PROTIME PATIENT (test See_Comment H [Auto mated message] code = 5964-2) The system [employer] ich generated this result transmitted ref erence range: 10.1 - 1 2.6 Seconds. The reference range was not used to int erpret this result as normal/abnormal . INR (test code = 6301-6) Nor mal INR <1.1; Warfarin Therap eutic range 2.0 to 3. 0 or 2.5 to 3.5, dep ending upon the indica tions. Lab Interpretation (test Abnormal code = 52596-3) [facility] [id number] 12:44:57 Test Item Value Reference Range Interpretation Comments CSF CULTURE (test No organisms isolated code = 606-4) Gram stain (test code Moderate Mononuclear = 664-3) cells [facility] METABOLIC PANEL (NA, K, CL, CO2, GLUCOSE, BUN, CREATININE, CA)2021-10-24 10:58:18 Test Item Value Reference Range Interpretation Comments NA (test code = 138 mmol/L 135-145 0070288904) K (test code = 4.3 mmol/L 3.5-5.0 1237166448) CL (test code = 108 mmol/L 98-108 9464771906) CO2 TOTAL (test code = 24 mmol/L 23-31 0292631534) AGAP (test code = 2-16 4749466394) BUN (test code = 24 mg/dL 7-23 H 1316332104) GLUCOSE (test code = 109 mg/dL 70-110 7585715286) CREATININE (test code = 1.81 mg/dL 0.60-1.25 H 8945974919) CALCIUM (test code = 8.7 mg/dL 8.6-10.6 1510416050) eGFR (test code = mL/min/1.73m2 9862253893) TYE (test code = TYE) Association of Glomerular Filtration Rate (GFR) and Staging of Kidney Disease* + --+ --+ ------+| GFR (mL/min/1.73 m2) ?| With Kidney Damage ?| ?Without Kidney Damage+ --------+ --------+ +| ?>90 ?| ?Stage one ?| ? Normal ?+ ---+ ---+ -------+| ?60-89 ?| ?Stage two ?| ? Decreased GFR ? + --+ --+ ------+| ?30-59 ?| ?Stage three ?| ? Stage three ? + --+ --+ ------+| ?15-29 ?| ?Stage four ? | ? Stage four ?+ ---+ ---+ -------+| ?<15 (or dialysis) ? ?| ?Stage five ? | ? Stage five ?+ ---+ ---+ -------+ *Each stage assumes the associated GFR level has been in effect for at least three months. ?Stages 1 to 5, with or without kidney disease, indicate chronic kidney disease. Notes: Determination of stages one and two (with eGFR >59mL/min/1.73 m2) requires estimation of kidney damage for at least three months as defined by structural or functional abnormalities of the kidney, manifested by either:Pathological abnormalities or Markers of kidney damage (including abnormalities in the composition of the blood or urine or abnormalities in imaging tests). Lab Interpretation Abnormal (test code = 93046-8) [facility] 10:58:18 Test Item Value Reference Range Interpretation Comments MAGNESIUM (test code = 0498991574) 2.2 mg/dL 1.7-2.4 Lab Interpretation (test code = Normal 02968-6) [facility] WITH [id number] 10:33:57 Test Item Value Reference Range Interpretation Comments WBC (test code = See_Comment [Automated 2690-2) message] The sy stem which generated this result transmitted reference range : 4.20 - 10.70 10*3/?L. The reference range was not used to interpret this result as normal/abnormal . RBC (test code = See_Comment [Automated 339-8) message] The sy stem which generated this result transmitted reference range : 4.26 - 5.52 10*6/?L. The reference range was not used to interpret this result as normal/abnormal . HGB (test code = 12.8 g/dL 12.2-16.4 718-7) HCT (test code = 36.5 % 38.4-49.3 L 4544-3) MCV (test code = 82.2 fL 81.7-95.6 787-2) MCH (test code = 28.8 pg 26.1-32.7 785-6) MCHC (test code = 35.1 g/dL 31.2-35.0 H 786-4) RDW-SD (test code = 38.7 fL 38.5-51.6 32622-9) RDW-CV (test code = 13.1 % 12.1-15.4 788-0) PLT (test code = See_Comment [Automated 777-3) message] The sy stem which generated this result transmitted reference range : 150 - 328 10*3/ ?L. The reference r mey was not used to interpret this result as normal/abnormal . MPV (test code = 10.8 fL 9.8-13.0 20132-0) NRBC/100 WBC (test See_Comment [Automat ed code = 0569601162) message] The system which generated this result transmitted reference range : 0.0 - 10.0 /100 WBCs. The refer ence range was not u sed to interpret th is result as normal/abnormal . NRBC x10^3 (test code <0.01 See_Comment [Auto mated = 4463854838) message] The s ystem which generated this result transmitted reference range : 10*3/?L. The reference range was not used to interpret this result as normal/abnormal . GRAN MAT (NEUT) % 73.8 % (test code = 770-8) IMM GRAN % (test code 1.10 % = 4405360497) LYMPH % (test code = 15.7 % 736-9) MONO % (test code = 7.2 % 5905-5) EOS % (test code = 1.7 % 713-8) BASO % (test code = 0.5 % 706-2) GRAN MAT x10^3(ANC) 7.69 10*3/uL 1.99-6.95 H (test code = 5443920284) IMM GRAN x10^3 (test 0.11 10*3/uL 0.00-0.06 H code = 3146632318) LYMPH x10^3 (test code 1.63 10*3/uL 1.09-3.23 = 731-0) MONO x10^3 (test code 0.75 10*3/uL 0.36-1.02 = 742-7) EOS x10^3 (test code = 0.18 10*3/uL 0.06-0.53 711-2) BASO x10^3 (test code 0.05 10*3/uL 0.01-0.09 = 704-7) Lab Interpretation Abnormal (test code = 99704-1) [facility] GLUCOSE (AUTOMATED)2021-10-24 00:15:25 Test Item Value Reference Range Interpretation Comments POCT GLU (test code = 4439309688) 151 mg/dL 70-110 H Lab Interpretation (test code = Abnormal 70535-7) [facility] [id number] 00:14:41 Test Item Value Reference Range Interpretation Comments GLU CSF (test code = 53 mg/dL 50-80 1549488945) UNSPUN BODY FLUID Colorless COLOR (test code = 9451619018) UNSPUN BODY FLUID Clear CLARITY (test code = 6308998211) SPUN BODY FLUID COLOR Colorless (test code = 9654586908) SPUN BODY FLUID Clear CLARITY (test code = 5730866023) Sediment (test code = The sediment volume is 9446835990) <0.1 mLs of the total fluid volume of 3.0 mLs and its color is red. [facility] DIRECT [id number] 00:09:39 Test Item Value Reference Range Interpretation Comments BF COLOR (test code = Clear 8504584762) BF WBC Count (test See_Comment [Automat ed message] The code = 9614172739) system [facility] generated this result transmit missy reference range : 0 - 5 /?L. The reference r mey was not used to interpr et this result as nikita l/abnormal. BF RBC Count (test See_Comment [Automat ed message] The code = 6894770995) system [facility] generated this result transmit missy reference range : /?L. The reference range was not used to interpr et this result as nikita l/abnormal. [facility] FLUID MANUAL [id number] 00:09:39 Test Item Value Reference Range Interpretation Comments BF SEGS% (test code = 61830-5) 9 % 0-7 H BF LYMPHS% (test code = 05146-3) 45 % 28-96 BF MACROPHAGE% (test code = 13845-5) 45 % 16-56 BF #CELLS CNTD (test code = cells/uL 4109704879) Lab Interpretation (test code = Abnormal 72629-6) [facility] [id number] 00:00:26 Test Item Value Reference Range Interpretation Comments T. PRO CSF (test code = 49.0 mg/dL 15.0-45.0 H 2607677687) UNSPUN BODY FLUID COLOR Colorless (test code = 5267616749) UNSPUN BODY FLUID CLARITY Clear (test code = 6152756186) SPUN BODY FLUID COLOR Colorless (test code = 6163554691) SPUN BODY FLUID CLARITY Clear (test code = 2114777429) Sediment (test code = The sediment volume 4341654196) is <0.1 mLs of the total fluid volume of 3.0 mLs and its color is red. Lab Interpretation (test Abnormal code = 63556-7) [facility]IT[facility]IN B1 (THIAMINE), WHOLE [id number] 12:43:40 Test Item Value Reference Range Interpretation Comments Vitamin B1, Whole 65 nmol/L 70-180 L INTERPRETI VE Blood (test code = INFORMATI ON: Vitamin 27999-6) B1, Whole Blood This assay measures the concentration o f thiamine diphos phate (TDP), the prim dawn active form of vitamin B1. Approximate ly 90 percent of lisa min B1 present in whol e blood is TDP. Thiamin e and thiamine monophosphate, which comprise the re maining 10 percent, are not measured. This test was developed a nd its performance characteristics determined by [facility]. I t has not been cleare d or approved by the [place] Food and Drug Administration. This test was perfor med in a CLIA certifie d laboratory and is intended for cl inical purposes.Perfor med By: [facility] [address] [place] [id number] Director: Elenita Cano MD Lab Interpretation Abnormal (test code = 80173-6) [facility] HospitalTHYROID PEROXIDASE (TPO) [id number] 21:58:47 Test Item Value Reference Interpretation Comments Range TPO Ab IgG (test See_Comment [Automated code = 7203786234) message] The system which generated this result transmitted reference range : 0.0 - 100.0 WHO Units. The reference range was not used to interpret this result as normal/abnormal . TYE (test code = Interpretation: TYE) Negative: ?<= 100 WHO UnitsPositive: ? > 100 WHO Units A positive result indicates the presence of TPO antibodies and suggests thepossibility of Nestor's thyroiditis and/or Graves' disease. ?A negativeresult indicates no TPO antibodies or levels below the negative cut-off ofthe assay. ?The presence of antibodies to TPO can be used in conjunction withclinical findings and other laboratory tests to aid in the diagnosis ofautoimmune thyroid diseases such as Nestor's thyroiditis and Graves'disease. Lab Interpretation Normal (test code = 50551-4) [facility] HospitalVITAMIN B6, [id number] 18:05:10 Test Item Value Reference Range Interpretation Comments VIT B6 (test 43.5 nmol/L 20.0-125.0 INTERPRETIVE IN FORMATION: code = 38940-9) Vitamin B6 ( Pyridoxal 5-Phosphate) Py ridoxal 5'-phosphate me asured in a specimen collec missy following an 8- hour or overnight fast accurately indicates vitam in B6 nutritional sta tus. Non-fasting spe cimen concentration r eflects recent vitamin intake. This test was d eveloped and its perform ance characteristics determined by [facility]. It has not been cl eared or approved by the US Food and Drug Admini stration. This test was p erformed in a CLIA certifie d laboratory and is intended for clinical purposes.Perfor med By: [facility] [address] [place], [place] [id number] [facility] Director: Elenita Cano MD [facility] (NA, K, CL, CO2, GLUCOSE, BUN, CREATININE, CA)2021-10-20 09:25:40 Test Item Value Reference Range Interpretation Comments NA (test code = 138 mmol/L 135-145 0141393532) K (test code = 4.0 mmol/L 3.5-5.0 6618539695) CL (test code = 107 mmol/L 98-108 3168689689) CO2 TOTAL (test code = 27 mmol/L 23-31 3466270478) AGAP (test code = 2-16 5031523595) BUN (test code = 15 mg/dL 7-23 7538988428) GLUCOSE (test code = 108 mg/dL 70-110 0125474875) CREATININE (test code = 1.02 mg/dL 0.60-1.25 4976185534) CALCIUM (test code = 8.5 mg/dL 8.6-10.6 L 5416851915) eGFR (test code = mL/min/1.73m2 8783537492) TYE (test code = TYE) Association of Glomerular Filtration Rate (GFR) and Staging of Kidney Disease* + --+ --+ ------+| GFR (mL/min/1.73 m2) ?| With Kidney Damage ?| ?Without Kidney Damage+ --------+ --------+ +| ?>90 ?| ?Stage one ?| ? Normal ?+ ---+ ---+ -------+| ?60-89 ?| ?Stage two ?| ? Decreased GFR ? + --+ --+ ------+| ?30-59 ?| ?Stage three ?| ? Stage three ? + --+ --+ ------+| ?15-29 ?| ?Stage four ? | ? Stage four ?+ ---+ ---+ -------+| ?<15 (or dialysis) ? ?| ?Stage five ? | ? Stage five ?+ ---+ ---+ -------+ *Each stage assumes the associated GFR level has been in effect for at least three months. ?Stages 1 to 5, with or without kidney disease, indicate chronic kidney disease. Notes: Determination of stages one and two (with eGFR >59mL/min/1.73 m2) requires estimation of kidney damage for at least three months as defined by structural or functional abnormalities of the kidney, manifested by either:Pathological abnormalities or Markers of kidney damage (including abnormalities in the composition of the blood or urine or abnormalities in imaging tests). Lab Interpretation Abnormal (test code = 05281-7) [facility] 09:25:40 Test Item Value Reference Range Interpretation Comments MAGNESIUM (test code = 7574482881) 2.0 mg/dL 1.7-2.4 Lab Interpretation (test code = Normal 92091-4) [facility] WITH [id number] 09:05:38 Test Item Value Reference Range Interpretation Comments WBC (test code = See_Comment [Automated 3090-2) message] The sy stem which generated this result transmitted reference range : 4.20 - 10.70 10*3/?L. The reference range was not used to interpret this result as normal/abnormal . RBC (test code = See_Comment L [Automated 209-8) message] The sy stem which generated this result transmitted reference range : 4.26 - 5.52 10*6/?L. The reference range was not used to interpret this result as normal/abnormal . HGB (test code = 12.0 g/dL 12.2-16.4 L 718-7) HCT (test code = 33.8 % 38.4-49.3 L 4544-3) MCV (test code = 81.8 fL 81.7-95.6 787-2) MCH (test code = 29.1 pg 26.1-32.7 785-6) MCHC (test code = 35.5 g/dL 31.2-35.0 H 786-4) RDW-SD (test code = 37.2 fL 38.5-51.6 L 95510-2) RDW-CV (test code = 12.4 % 12.1-15.4 788-0) PLT (test code = See_Comment [Automated 777-3) message] The sy stem which generated this result transmitted reference range : 150 - 328 10*3/ ?L. The reference r mey was not used to interpret this result as normal/abnormal . MPV (test code = 10.6 fL 9.8-13.0 17788-5) NRBC/100 WBC (test See_Comment [Automat ed code = 0205559073) message] The system which generated this result transmitted reference range : 0.0 - 10.0 /100 WBCs. The refer ence range was not u sed to interpret th is result as normal/abnormal . NRBC x10^3 (test code <0.01 See_Comment [Auto mated = 3996175977) message] The s ystem which generated this result transmitted reference range : 10*3/?L. The reference range was not used to interpret this result as normal/abnormal . GRAN MAT (NEUT) % 71.3 % (test code = 770-8) IMM GRAN % (test code 0.80 % = 3839948559) LYMPH % (test code = 17.3 % 736-9) MONO % (test code = 7.8 % 5905-5) EOS % (test code = 2.4 % 713-8) BASO % (test code = 0.4 % 706-2) GRAN MAT x10^3(ANC) 5.93 10*3/uL 1.99-6.95 (test code = 3049065372) IMM GRAN x10^3 (test 0.07 10*3/uL 0.00-0.06 H code = 6264085790) LYMPH x10^3 (test code 1.44 10*3/uL 1.09-3.23 = 731-0) MONO x10^3 (test code 0.65 10*3/uL 0.36-1.02 = 742-7) EOS x10^3 (test code = 0.20 10*3/uL 0.06-0.53 711-2) BASO x10^3 (test code 0.03 10*3/uL 0.01-0.09 = 704-7) Lab Interpretation Abnormal (test code = 48326-5) [facility]an[facility] ([facility]2021-10-18 16:30:48 Test Item Value Reference Range Interpretation Comments Height (test code = in 6267178475) Weight (test code = lbs 7787257563) Systolic BP (test code = mmHg 8060343904) Diastolic BP (test code mmHg = 1888994625) Heart Rate (test code = bpm 2599740044) LVOT stroke volume (test 36.20 cm3 code = 6807566778) EF(Teich) (test code = 42.20 % 5079552681) LVIDD (test code = 5.80 cm 2799263662) LVIDS (test code = 4.50 cm 6037038369) IVS (test code = 1.02 cm 9258677772) LVPWD (test code = 1.09 cm 8063175751) LVOT diameter (test code 1.98 cm = 9870342293) FS (test code = 21 % 9089066056) MV Peak E Ronnie (test code 59.6 cm/s = 4104167140) E wave decelartion time 0.22 s (test code = 6068698137) MV E/e' septal (test 5.7 cm/s code = 8373307112) LVOT peak ronnie (test code 68.6 cm/s = 7779957606) LVOT mn grad (test code mmHg = 9374225236) BSA (test code = 2.15 m2 2890890092) LA size (test code = 3.1 cm 0000752492) LAV(MOD-sp4) (test code 22.20 mL = 4865236531) Tapse (test code = 2.5 cm 7252122687) AV LVOT peak gradient mmHg (test code = 2190165050) LVOT peak VTI (test code 11.8 cm = 9839550680) LV V1 mean (test code = 40.80 cm/s 1072024874) MV Prop V (test code = 43.50 cm/s 7026385624) Ao root annulus (test 3.7 cm code = 2576951053) Ao root diam (test code 3.70 cm = 5932800342) Aortic root (test code = 3.7 cm 0967475679) PW (test code = 1.09 cm 0.6-1.1 3931694451) EF - 2D (test code = 42.20 % 17158567) Interventricular Septum 1.02 cm Diastolic Thickness by 2D (test code = 4967870) Aortic valve mean 57.0 cm/s velocity (test code = 9471060965) Ao peak ronnie (test code = 90.9 cm/s 9651961873) Ao VTI (test code = 18.1 cm 0004818566) AV area by cont VTI 2.0 cm2 (test code = 1913900621) AV area peak ronnie (test 2.3 cm2 code = 8843894396) Ao max PG (test code = 3.30 mm[Hg] 1701290915) AV peak gradient (test mmHg code = 7812000314) AV valve area (test code 2.00 cm2 = 5445561777) AV mean gradient (test mmHg code = 8426249347) Radiology Study observation (narrative) (test code = 63737-6) TYE (test code = TYE) ?Left?Ventricle: Systolic function appears at least moderately to severely reduced as it is extremely difficult to visualize endocardial borders for accurate assessment. Unable to assess diastolic function due to poor image quality. ?Right?Ventricle: Not well visualized. Grossly normal systolic function. ?Tricuspid?Valve: Trace transvalvular regurgitation. Insufficient regurgant jet to estimate RVSP. ?Consider repeat study with contrast to further assess LV function when patient more stable. [facility] METABOLIC PANEL (NA, K, CL, CO2, GLUCOSE, BUN, CREATININE, CA)2021-10-18 10:22:01 Test Item Value Reference Range Interpretation Comments NA (test code = 142 mmol/L 135-145 2392134330) K (test code = 3.6 mmol/L 3.5-5.0 2541985863) CL (test code = 111 mmol/L 98-108 H 2043104979) CO2 TOTAL (test code = 29 mmol/L 23-31 5511709325) AGAP (test code = 2-16 9580975481) BUN (test code = 22 mg/dL 7-23 3330048967) GLUCOSE (test code = 93 mg/dL 70-110 2344776695) CREATININE (test code = 1.28 mg/dL 0.60-1.25 H 6978077343) CALCIUM (test code = 8.7 mg/dL 8.6-10.6 4033838070) eGFR (test code = mL/min/1.73m2 2405428165) TYE (test code = TYE) Association of Glomerular Filtration Rate (GFR) and Staging of Kidney Disease* + --+ --+ ------+| GFR (mL/min/1.73 m2) ?| With Kidney Damage ?| ?Without Kidney Damage+ --------+ --------+ +| ?>90 ?| ?Stage one ?| ? Normal ?+ ---+ ---+ -------+| ?60-89 ?| ?Stage two ?| ? Decreased GFR ? + --+ --+ ------+| ?30-59 ?| ?Stage three ?| ? Stage three ? + --+ --+ ------+| ?15-29 ?| ?Stage four ? | ? Stage four ?+ ---+ ---+ -------+| ?<15 (or dialysis) ? ?| ?Stage five ? | ? Stage five ?+ ---+ ---+ -------+ *Each stage assumes the associated GFR level has been in effect for at least three months. ?Stages 1 to 5, with or without kidney disease, indicate chronic kidney disease. Notes: Determination of stages one and two (with eGFR >59mL/min/1.73 m2) requires estimation of kidney damage for at least three months as defined by structural or functional abnormalities of the kidney, manifested by either:Pathological abnormalities or Markers of kidney damage (including abnormalities in the composition of the blood or urine or abnormalities in imaging tests). Lab Interpretation Abnormal (test code = 17027-0) [facility] Test Item Value Reference Range Interpretation Comments MAGNESIUM (test code = 1419599292) 2.2 mg/dL 1.7-2.4 Lab Interpretation (test code = Normal 88258-4) [facility] acute hospital WITH [id number] 09:59:41 Test Item Value Reference Range Interpretation Comments WBC (test code = See_Comment [Automated 6690-2) message] The sy stem which generated this result transmitted reference range : 4.20 - 10.70 10*3/?L. The reference range was not used to interpret this result as normal/abnormal . RBC (test code = See_Comment L [Automated 789-8) message] The sy stem which generated this result transmitted reference range : 4.26 - 5.52 10*6/?L. The reference range was not used to interpret this result as normal/abnormal . HGB (test code = 12.2 g/dL 12.2-16.4 718-7) HCT (test code = 35.9 % 38.4-49.3 L 4544-3) MCV (test code = 84.9 fL 81.7-95.6 787-2) MCH (test code = 28.8 pg 26.1-32.7 785-6) MCHC (test code = 34.0 g/dL 31.2-35.0 786-4) RDW-SD (test code = 40.1 fL 38.5-51.6 15910-2) RDW-CV (test code = 13.0 % 12.1-15.4 788-0) PLT (test code = See_Comment [Automated 777-3) message] The sy stem which generated this result transmitted reference range : 150 - 328 10*3/ ?L. The reference r mey was not used to interpret this result as normal/abnormal . MPV (test code = 10.8 fL 9.8-13.0 06044-4) NRBC/100 WBC (test See_Comment [Automat ed code = 6127339244) message] The system which generated this result transmitted reference range : 0.0 - 10.0 /100 WBCs. The refer ence range was not u sed to interpret th is result as normal/abnormal . NRBC x10^3 (test code <0.01 See_Comment [Auto mated = 2278900000) message] The s ystem which generated this result transmitted reference range : 10*3/?L. The reference range was not used to interpret this result as normal/abnormal . GRAN MAT (NEUT) % 64.1 % (test code = 770-8) IMM GRAN % (test code 0.50 % = 6105174339) LYMPH % (test code = 22.8 % 736-9) MONO % (test code = 8.8 % 5905-5) EOS % (test code = 3.3 % 713-8) BASO % (test code = 0.5 % 706-2) GRAN MAT x10^3(ANC) 4.66 10*3/uL 1.99-6.95 (test code = 2017691037) IMM GRAN x10^3 (test 0.04 10*3/uL 0.00-0.06 code = 1193096723) LYMPH x10^3 (test code 1.66 10*3/uL 1.09-3.23 = 731-0) MONO x10^3 (test code 0.64 10*3/uL 0.36-1.02 = 742-7) EOS x10^3 (test code = 0.24 10*3/uL 0.06-0.53 711-2) BASO x10^3 (test code 0.04 10*3/uL 0.01-0.09 = 704-7) Lab Interpretation Abnormal (test code = 21260-6) [facility], [id number] 19:35:05 Test Item Value Reference Range Interpretation Comments AMMONIA (test code = 5433050147) <9 9-33 L Lab Interpretation (test code = Abnormal 47117-5) [facility]VIT[facility] B12, [id number] 19:31:59 Test Item Value Reference Range Interpretation Comments VIT B12 (test code = 241 pg/mL 240-930 2512795188) TYE (test code = TYE) Biotin has been reported to cause a positive bias, interpret results relative to patient's use of biotin. Lab Interpretation (test Normal code = 86177-9) [facility] 15:35:26 Test Item Value Reference Range Interpretation Comments FOLATE SER (test code = 11.7 ng/mL 3.0-20.0 8416038941) Lab Interpretation (test code = Normal 55889-2) [facility]CREAT[facility] [id number] 12:12:54 Test Item Value Reference Range Interpretation Comments CK (test code = 9746304456) 992 U/L 33-194 H Lab Interpretation (test code = Abnormal 01847-5) [facility]HEPAT[facility] FUNCTION PANEL (06570) (ALB,T.PRO,BILI T,BU/BC,ALT,AST,ALK PHOS)2021-10-17 12:12:54 Test Item Value Reference Range Interpretation Comments TOTAL BILI (test code = 7401350384) 0.8 mg/dL 0.1-1.1 BILI UNCON (test code = 1901828186) 0.7 mg/dL 0.1-1.1 BILI CONJ (test code = 4961538562) 0.0 mg/dL 0.0-0.3 T PROTEIN (test code = 1638485050) 7.0 g/dL 6.3-8.2 ALBUMIN (test code = 4391484017) 3.9 g/dL 3.5-5.0 ALK PHOS (test code = 3562650274) 81 U/L 34-122 ALTv (test code = 1742-6) 19 U/L 5-50 AST(SGOT) (test code = 5920134014) 47 U/L 13-40 H Lab Interpretation (test code = Abnormal 00613-7) [facility] (NA, K, CL, CO2, GLUCOSE, BUN, CREATININE, CA)2021-10-17 12:12:54 Test Item Value Reference Range Interpretation Comments NA (test code = 143 mmol/L 135-145 1857917792) K (test code = 3.7 mmol/L 3.5-5.0 4271732921) CL (test code = 109 mmol/L 98-108 H 7243088943) CO2 TOTAL (test code = 26 mmol/L 23-31 7341938201) AGAP (test code = 2-16 2650651189) BUN (test code = 22 mg/dL 7-23 7008361307) GLUCOSE (test code = 101 mg/dL 70-110 1029095770) CREATININE (test code = 1.28 mg/dL 0.60-1.25 H 2090516503) CALCIUM (test code = 9.0 mg/dL 8.6-10.6 0943791098) eGFR (test code = mL/min/1.73m2 6255181277) TYE (test code = TYE) Association of Glomerular Filtration Rate (GFR) and Staging of Kidney Disease* + --+ --+ ------+| GFR (mL/min/1.73 m2) ?| With Kidney Damage ?| ?Without Kidney Damage+ --------+ --------+ +| ?>90 ?| ?Stage one ?| ? Normal ?+ ---+ ---+ -------+| ?60-89 ?| ?Stage two ?| ? Decreased GFR ? + --+ --+ ------+| ?30-59 ?| ?Stage three ?| ? Stage three ? + --+ --+ ------+| ?15-29 ?| ?Stage four ? | ? Stage four ?+ ---+ ---+ -------+| ?<15 (or dialysis) ? ?| ?Stage five ? | ? Stage five ?+ ---+ ---+ -------+ *Each stage assumes the associated GFR level has been in effect for at least three months. ?Stages 1 to 5, with or without kidney disease, indicate chronic kidney disease. Notes: Determination of stages one and two (with eGFR >59mL/min/1.73 m2) requires estimation of kidney damage for at least three months as defined by structural or functional abnormalities of the kidney, manifested by either:Pathological abnormalities or Markers of kidney damage (including abnormalities in the composition of the blood or urine or abnormalities in imaging tests). Lab Interpretation Abnormal (test code = 91538-7) General acute hospital WITH [id number] 11:57:57 Test Item Value Reference Range Interpretation Comments WBC (test code = See_Comment [Automated 3890-2) message] The sy stem which generated this result transmitted reference range : 4.20 - 10.70 10*3/?L. The reference range was not used to interpret this result as normal/abnormal . RBC (test code = See_Comment [Automated 789-8) message] The sy stem which generated this result transmitted reference range : 4.26 - 5.52 10*6/?L. The reference range was not used to interpret this result as normal/abnormal . HGB (test code = 12.5 g/dL 12.2-16.4 718-7) HCT (test code = 36.6 % 38.4-49.3 L 4544-3) MCV (test code = 85.5 fL 81.7-95.6 787-2) MCH (test code = 29.2 pg 26.1-32.7 785-6) MCHC (test code = 34.2 g/dL 31.2-35.0 786-4) RDW-SD (test code = 39.8 fL 38.5-51.6 78328-8) RDW-CV (test code = 12.9 % 12.1-15.4 788-0) PLT (test code = See_Comment [Automated 777-3) message] The sy stem which generated this result transmitted reference range : 150 - 328 10*3/ ?L. The reference r mey was not used to interpret this result as normal/abnormal . MPV (test code = 10.6 fL 9.8-13.0 44229-7) NRBC/100 WBC (test See_Comment [Automat ed code = 0674660128) message] The system which generated this result transmitted reference range : 0.0 - 10.0 /100 WBCs. The refer ence range was not u sed to interpret th is result as normal/abnormal . NRBC x10^3 (test code <0.01 See_Comment [Auto mated = 6630222115) message] The s ystem which generated this result transmitted reference range : 10*3/?L. The reference range was not used to interpret this result as normal/abnormal . GRAN MAT (NEUT) % 71.9 % (test code = 770-8) IMM GRAN % (test code 0.40 % = 7511595181) LYMPH % (test code = 17.4 % 736-9) MONO % (test code = 8.4 % 5905-5) EOS % (test code = 1.7 % 713-8) BASO % (test code = 0.2 % 706-2) GRAN MAT x10^3(ANC) 6.44 10*3/uL 1.99-6.95 (test code = 1449197457) IMM GRAN x10^3 (test 0.04 10*3/uL 0.00-0.06 code = 6499319818) LYMPH x10^3 (test code 1.56 10*3/uL 1.09-3.23 = 731-0) MONO x10^3 (test code 0.75 10*3/uL 0.36-1.02 = 742-7) EOS x10^3 (test code = 0.15 10*3/uL 0.06-0.53 711-2) BASO x10^3 (test code <0.03 0.01-0.09 = 704-7) Lab Interpretation Abnormal (test code = 63272-9) [facility] 06:29:14 Test Item Value Reference Range Interpretation Comments MAGNESIUM (test code = 5881457542) 1.9 mg/dL 1.7-2.4 Lab Interpretation (test code = Normal 52127-3) [facility] HospitalTroponin I - Code [id number] 05:24:52 Test Item Value Reference Interpretation Comments Range TROPONIN I (test 0.017 ng/mL See_Comment [Automated code = 5276772043) message] The system which generated this result transmitted reference range : <=0.034. The reference range was not used to interpret this result as normal/abnormal . TYE (test code = Reference (Normal) TYE) Range (defined by the 99th percentile reference limit): <= 0.034 ng/mL Note: Cardiac troponin begins to rise 3-4 hours after the onset of ischemia. Repeat in 4-6 hours if the sample was drawn within 3-4 hours of the onset of the symptom and found normal. Diagnosis of myocardial injury is made with acute changes in cTn concentrations with at least one serial sample above the 99th percentile upper reference limit (URL), taken together with the patient's clinical presentation. Biotin has been reported to cause a negative bias, interpret results relative to patient's use of biotin. Lab Interpretation Normal (test code = 52859-0) [facility] Metabolic Panel (NA, K, CL, CO2, Glucose, BUN, Creatinine, CA) - Code [id number] 05:13:10 Test Item Value Reference Range Interpretation Comments NA (test code = 144 mmol/L 135-145 9964220113) K (test code = 4.3 mmol/L 3.5-5.0 4549762185) CL (test code = 106 mmol/L 98-108 0702339900) CO2 TOTAL (test code = 26 mmol/L 23-31 3764315857) AGAP (test code = 2-16 9269461048) BUN (test code = 23 mg/dL 7-23 6995786127) GLUCOSE (test code = 123 mg/dL 70-110 H 1255348921) CREATININE (test code = 1.29 mg/dL 0.60-1.25 H 2880474802) CALCIUM (test code = 9.7 mg/dL 8.6-10.6 2458860242) eGFR (test code = mL/min/1.73m2 5501122408) TYE (test code = TYE) Association of Glomerular Filtration Rate (GFR) and Staging of Kidney Disease* + --+ --+ ------+| GFR (mL/min/1.73 m2) ?| With Kidney Damage ?| ?Without Kidney Damage+ --------+ --------+ +| ?>90 ?| ?Stage one ?| ? Normal ?+ ---+ ---+ -------+| ?60-89 ?| ?Stage two ?| ? Decreased GFR ? + --+ --+ ------+| ?30-59 ?| ?Stage three ?| ? Stage three ? + --+ --+ ------+| ?15-29 ?| ?Stage four ? | ? Stage four ?+ ---+ ---+ -------+| ?<15 (or dialysis) ? ?| ?Stage five ? | ? Stage five ?+ ---+ ---+ -------+ *Each stage assumes the associated GFR level has been in effect for at least three months. ?Stages 1 to 5, with or without kidney disease, indicate chronic kidney disease. Notes: Determination of stages one and two (with eGFR >59mL/min/1.73 m2) requires estimation of kidney damage for at least three months as defined by structural or functional abnormalities of the kidney, manifested by either:Pathological abnormalities or Markers of kidney damage (including abnormalities in the composition of the blood or urine or abnormalities in imaging tests). Lab Interpretation Abnormal (test code = 38592-4) [facility]aPTT - Code [id number] 05:10:54 Test Item Value Reference Range Interpretation Comments APTT Patient (test See_Comment [Automat ed code = 3173-2) message] The system which generated this result transmitted reference range : 23 - 38 Seconds . The reference range was not used to interpr et this result as normal/abnormal . TYE (test code = TYE) The [facility] patient population mean normal value for aPTT is 30 seconds. Lab Interpretation Normal (test code = 36162-2) [facility] HospitalProthrombin Time / INR - Code [id number] 05:08:54 Test Item Value Reference Range Interpretation Comments PROTIME PATIENT (test See_Comment [Auto mated message] code = 5964-2) The system [employer] generated this result transmitted ref erence range: 12.0 - 1 4.7 Seconds. The re ference range was not u sed to interpret this result as normal/abnor mal. INR (test code = 6301-6) Nor mal INR <1.1; Warfarin Therap eutic range 2.0 to 3. 0 or 2.5 to 3.5, dep ending upon the indica tions. Lab Interpretation (test Normal code = 35159-6) [facility]CBC without Diff - Code [id number] 05:00:52 Test Item Value Reference Range Interpretation Comments WBC (test code = 6690-2) See_Comment H [A utomated message] The system [employer] generated this result transmit missy reference range : 4.20 - 10.70 10*3/?L. The reference range was not used to interpret this result as normal/abnormal . RBC (test code = 789-8) See_Comment [Au tomated message] The system [employer] generated this result transmit missy reference range : 4.26 - 5.52 10* 6/?L. The reference r emy was not used to interpret this result as normal/abnormal . HGB (test code = 718-7) 14.3 g/dL 12.2-16.4 HCT (test code = 4544-3) 41.9 % 38.4-49.3 MCH (test code = 785-6) 28.7 pg 26.1-32.7 MCV (test code = 787-2) 84.1 fL 81.7-95.6 MCHC (test code = 786-4) 34.1 g/dL 31.2-35.0 PLT (test code = 777-3) See_Comment [Au tomated message] The system [employer] generated this result transmit missy reference range : 150 - 328 10*3/?L. The reference range was not used to interpret this result as normal/abnormal . MPV (test code = 10.4 fL 9.8-13.0 48488-8) RDW-CV (test code = 12.6 % 12.1-15.4 788-0) RDW-SD (test code = 38.5 fL 38.5-51.6 18418-0) NRBC x10^3 (test code = <0.01 See_Comment [Au tomated message] 2151538389) The system [employer] generated this result transmit missy reference range : 10*3/?L. The reference range was not used to interpret this result as normal/abnormal . NRBC/100 WBC (test code See_Comment [Au tomated message] = 5844715004) The system [employer] generated this result transmit missy reference range : 0.0 - 10.0 /100 WBC s. The reference r mey was not used to interpret this result as normal/abnormal . IPF % (test code = 5548653035) Lab Interpretation (test Abnormal code = 40850-0) [facility]PO[facility] GLUCOSE (AUTOMATED)2021-10-17 04:55:16 Test Item Value Reference Range Interpretation Comments POCT GLU (test code = 0723040889) 113 mg/dL 70-110 H Lab Interpretation (test code = Abnormal 36823-5) [facility] HospitalSARS-CoV-2 (COVID-19) RNA [Presence] in Respiratory specimen by AARON with probe [id number] 06:35:29 Test Item Value Reference Range Interpretation Comments SARS-CoV-2 (COVID-19) RNA Not detected Not-Detected [Presence] in Respiratory specimen by AARON with probe detection (test code = 08797-2) EILEEN DANIELSON"
--- NOTE | 2022-03-10 21:49 | RAD REPORT ---
EXAM DESCRIPTION: CT - CTHCSPWOC - 03/10/2022 9:36 pm CLINICAL HISTORY: Trauma, head and neck injury. Altered mental status COMPARISON: No comparisons TECHNIQUE: Axial 5 mm thick images of the head were obtained. Axial 2 mm thick images of the cervical spine were obtained with sagittal and coronal reconstruction images generated and reviewed. All CT scans are performed using dose optimization technique as appropriate and may include automated exposure control or mA/KV adjustment according to patient size. FINDINGS: CT HEAD WITHOUT CONTRAST: No acute hemorrhage, hydrocephalus or extra-axial collection is identified.No areas of brain edema or midline shift. Ventriculomegaly, likely related to cerebral atrophy. . Remote appearing right rodriguez radiata infarct. Mastoid fluid bilaterally.Mucous retention cyst in the left maxillary sinus. CT CERVICAL SPINE WITHOUT CONTRAST: No fracture or subluxation.No prevertebral soft tissues swelling is identified. Multilevel cervical s pondylosis with varying degrees of neural foraminal narrowing. Mild central spinal stenosis is suspec t a C5-6 and C6-7. IMPRESSION: No acute intracranial or cervical spine findings.
--- NOTE | 2022-03-10 22:28 | RAD REPORT ---
EXAM DESCRIPTION: RAD - Chest Single View - 03/10/2022 10:20 pm CLINICAL HISTORY: COUGH COMPARISON: Chest Single View dated 04/01/2021; Chest Single View dated 10/23/2020; Chest Single View dated 09/07/2020; Chest Single View dated 03/05/2019 FINDINGS: Lines: None. Lungs: No evidence of edema or pneumonia. Pleural: No significant pleural effusions or pneumothorax. Cardiac: The heart size is within normal limits. Mediastinum: Within normal limits. Bones: No acute fractures. Other: None IMPRESSION: No acute cardiopulmonary disease.
[2022-03-10 22:50] LABS: SARS-CoV-2 Antigen Rapid Res Negative (Negative)
[2022-03-10 23:49] LABS: Absolute Lymphocytes (CBC) 0.3 K/uL (0.7-4.9); Hematocrit 34.7 % (39.6-49.0); MCV 84.1 fL (80-100); MPV 8.3 fL (7.6-11.3); RBC Red Blood Cell Count 4.13 M/uL (4.33-5.43)
[2022-03-10 23:57] LABS: Protime INR 1.13
[2022-03-11 00:09] LABS: Albumin 3.4 g/dL (3.4-5.0); Bilirubin Direct 0.1 mg/dL (0-0.2); Bilirubin Total 0.4 mg/dL (0.2-1.0); Magnesium 1.9 mg/dL (1.8-2.4); Potassium 3.8 mmol/L (3.5-5.1); Protein, Total 7.1 g/dL (6.4-8.2); Troponin High Sensitivity 12.8 pg/mL (<58.9)
--- NOTE | 2022-03-11 00:13 | ER ---
Nurse's Notes [facility] Name: Zelalem Mendiola Age: 76 yrs Sex: Male : 1945 Arrival Date: 03/10/2022 Time: 20:35 Bed 24 Private MD: Diagnosis: Fall on same level, unspecified;Unspecified injury of head, initial encounter;Dementia in other diseases classified elsewhere without behavioral disturbance Presentation: 03/10 20:36 Chief complaint: EMS states: pt fell in bathroom, no LOC. reports altered mental eh3 status past couple weeks. Nausea yesterday after dinner. Exposed to flu last weekend. Coronavirus screen: Vaccine status: Patient reports being unvaccinated. Ebola Screen: No symptoms or risks identified at this time. Initial Sepsis Screen: Does the patient meet any 2 criteria? No. Patient's initial sepsis screen is negative. Does the patient have a suspected source of infection? No. Patient's initial sepsis screen is negative. Risk Assessment: Do you want to hurt yourself or someone else? Patient reports no desire to harm self or others. Onset of symptoms was March 10, 2022. 20:36 Method Of Arrival: EMS: [facility] 20:36 Acuity: PADMAJA 3 eh3 Triage Assessment: 20:36 General: Appears in no apparent distress. uncomfortable. General: Behavior is calm, eh3 cooperative, appropriate for age, drowsy. Pain: Denies pain. EENT: No signs and/or symptoms were reported regarding the EENT system. Neuro: Level of Consciousness is awake, obeys commands, Oriented to person, place, Healthcare Applications Analyst are equal bilaterally Moves all extremities. Speech is normal, Facial symmetry appears normal, Pupils are Intact R pupil elongated from previous eye surgery, L pupil PERRLA. Cardiovascular: Capillary refill < 3 seconds Patient's skin is warm and dry. Respiratory: Airway is patent Respiratory effort is even, unlabored, Respiratory pattern is regular, symmetrical. GI: Abdomen is round non-distended. : No signs and/or symptoms were reported regarding the genitourinary system. Derm: No signs and/or symptoms reported regarding the dermatologic system. Musculoskeletal: Circulation, motion, and sensation intact. Range of motion: intact in all extremities. Historical: - Allergies: 20:52 NKDA; eh3 - PMHx: 20:52 cardiac stent; Cataracts; Dementia; Hyperlipidemia; Hypertension; Myocardial infarction;eh3 - Immunization history:: Adult Immunizations up to date, Flu vaccine is not up to date. It has been more than one year since last vaccine. - Social history:: Smoking status: Patient reports the use of cigarette tobacco products, denies chronic smoking, but will smoke occasionally, Patient/guardian denies using alcohol. - Family history:: not pertinent. Screenin:00 Abuse screen: Denies threats or abuse. Denies injuries from another. Nutritional eh3 screening: No deficits noted. Tuberculosis screening: No symptoms or risk factors identified. Fall Risk Fall in past 12 months (25 points). Secondary diagnosis (15 points) dementia, IV access (20 points). Total Snow Fall Scale indicates High Risk Score (45 or more points). Fall prevention measures have been instituted. Side Rails Up X 2 Placed Close to Nursing Station Frequent Obs/Assessments Occuring Family Present and informed to notify staff if the need to leave the bedside As available patient and family educated on Fall Prevention Program and Strategies. Assessment: 21:00 Reassessment: No changes from previously documented assessment. See triage assessment. eh3 22:00 Reassessment: Patient and/or family updated on plan of care and expected duration. Pain eh3 level reassessed. Patient is alert, oriented x 3, equal unlabored respirations, skin warm/dry/pink. 23:00 Reassessment: Patient and/or family updated on plan of care and expected duration. Pain eh3 level reassessed. Patient is alert, oriented x 3, equal unlabored respirations, skin warm/dry/pink. 03/11 00:00 Reassessment: Patient and/or family updated on plan of care and expected duration. Pain eh3 level reassessed. Patient is alert, oriented x 3, equal unlabored respirations, skin warm/dry/pink. 09:06 Reassessment: Called at [phone] in regards to patient leaving home meds in [facility] ED. Was not able to leave a message, will attempt to call back at a later time. Charge nurse aware. Vital Signs: 03/10 20:36 BP 140 / 55; Pulse 71; Resp 16; Temp 98.5(O); Pulse Ox 93% on R/A; Weight 86.18 kg; eh3 Height 5 ft. 11 in. (180.34 cm); Pain 0/10; 21:00 BP 151 / 62; Pulse 78; Resp 19; Pulse Ox 94% on R/A; eh3 22:00 BP 145 / 74; Pulse 85; Resp 20; Pulse Ox 97% on R/A; eh3 23:00 BP 131 / 81; Pulse 86; Resp 22; Pulse Ox 96% on R/A; eh3 03/11 00:00 BP 127 / 79; Pulse 89; Resp 20; Pulse Ox 97% on R/A; eh3 03/10 20:36 Body Mass Index 26.50 (86.18 kg, 180.34 cm) eh3 ED Course: 03/10 20:35 Patient arrived in ED. eh3 20:36 Arm band placed on right wrist. eh3 20:45 Hung Staley MD is Attending Physician. [facility] 20:52 Triage completed. eh3 21:00 Patient has correct armband on for positive identification. Placed in gown. Bed in low eh3 position. Call light in reach. Side rails up X2. Adult w/ patient. Client placed on continuous cardiac and pulse oximetry monitoring. NIBP monitoring applied. Door closed. Noise minimized. Warm blanket given. 21:38 CT Head C Spine In Process Unspecified. EDMS 22:05 Yeimi Aponte, RN is Primary Nurse. eh3 22:18 SARS RAPID Sent. eh3 22:22 XRAY Chest (1 view) In Process Unspecified. EDMS 23:39 Flu Sent. eh3 23:39 Inserted saline lock: 20 gauge in left upper arm, using aseptic technique. Blood eh3 collected. 03/11 00:13 Marcelo Toro MD is Referral Physician. [facility] 00:17 No provider procedures requiring assistance completed. IV discontinued, intact, eh3 bleeding controlled, No redness/swelling at site. Pressure dressing applied. Administered Medications: 03/10 23:44 Drug: NS 0.9% 500 ml Route: IV; Rate: bolus; Site: left upper arm; eh3 03/11 00:15 Follow up: IV Status: Completed infusion; IV Intake: 500ml eh3 Medication: 00:17 VIS not applicable for this client. eh3 Intake: 00:15 IV: 500ml; Total: 500ml. eh3 Outcome: 00:13 Discharge ordered by . shawna 00:20 Discharged to home via wheelchair, with family. eh3 00:20 Condition: stable 00:20 Discharge instructions given to patient, family, Instructed on discharge instructions, follow up and referral plans. Demonstrated understanding of instructions, follow-up care. 00:20 Patient left the ED. eh3 Signatures: Dispatcher [employer] EDHung Rojas MD MD cha Garcia, Victoria, RN RN vg1 Yeimi Aponte RN RN eh3 Corrections: (The following items were deleted from the chart) 03/10 20:57 20:36 Chief complaint: EMS states: pt fell in shower, no LOC, did not hit head. eh3 reports altered mental status starting today eh3
--- NOTE | 2022-03-11 00:14 | EDPHYS ---
Physician Documentation [facility] Name: Zelalem Mendiola Age: 76 yrs Sex: Male : 1945 Arrival Date: 03/10/2022 Time: 20:35 Bed 24 Private MD: ED Physician Hung Staley HPI: 03/10 22:21 This 76 yrs old Male presents to ER via EMS with complaints of Altered Mental shawna Status. 22:21 The patient presents with trouble concentrating. Onset: The symptoms/episode shawna began/occurred 1 year(s) ago. Possible causes: head injury. 22:22 Trauma demographics: County: The injury occurred in [place] Location of Injury: The shawna injury occurred at home. Mechanism of injury: Fall:. Associated injuries: The patient sustained injury to the head, contusion. Associated signs and symptoms: The patient has no apparent associated signs or symptoms. Current symptoms: In the emergency department the patient's symptoms are unchanged from the initial presentation. Patient's baseline: Neuro: alert but confused, Motor: no deficits, Ambulation: walks with assist only, Speech: normal. Historical: - Allergies: 20:52 NKDA; eh3 - PMHx: 20:52 cardiac stent; Cataracts; Dementia; Hyperlipidemia; Hypertension; Myocardial infarction;eh3 - Immunization history:: Adult Immunizations up to date, Flu vaccine is not up to date. It has been more than one year since last vaccine. - Social history:: Smoking status: Patient reports the use of cigarette tobacco products, denies chronic smoking, but will smoke occasionally, Patient/guardian denies using alcohol. - Family history:: not pertinent. ROS: 22:22 Constitutional: Negative for fever, chills, and weight loss, Eyes: Negative for injury, shawna pain, redness, and discharge, ENT: Negative for injury, pain, and discharge, Neck: Negative for injury, pain, and swelling, Cardiovascular: Negative for chest pain, palpitations, and edema, Respiratory: Negative for shortness of breath, cough, wheezing, and pleuritic chest pain, Abdomen/GI: Negative for abdominal pain, nausea, vomiting, diarrhea, and constipation, Back: Negative for injury and pain, : Negative for injury, bleeding, discharge, and swelling, MS/Extremity: Negative for injury and deformity, Skin: Negative for injury, rash, and discoloration, Psych: Negative for depression, anxiety, suicide ideation, homicidal ideation, and hallucinations, Allergy/Immunology: Negative for hives, rash, and allergies, Endocrine: Negative for neck swelling, polydipsia, polyuria, polyphagia, and marked weight changes, Hematologic/Lymphatic: Negative for swollen nodes, abnormal bleeding, and unusual bruising. 22:22 Neuro: Positive for weakness. Exam: 22:22 Constitutional: This is a well developed, well nourished patient who is awake, alert, shawna and in no acute distress. Head/Face: Normocephalic, atraumatic. Eyes: Pupils equal round and reactive to light, extra-ocular motions intact. Lids and lashes normal. Conjunctiva and sclera are non-icteric and not injected. Cornea within normal limits. Periorbital areas with no swelling, redness, or edema. ENT: Nares patent. No nasal discharge, no septal abnormalities noted. Tympanic membranes are normal and external auditory canals are clear. Oropharynx with no redness, swelling, or masses, exudates, or evidence of obstruction, uvula midline. Mucous membranes moist. Neck: Trachea midline, no thyromegaly or masses palpated, and no cervical lymphadenopathy. Supple, full range of motion without nuchal rigidity, or vertebral point tenderness. No Meningismus. Chest/axilla: Normal chest wall appearance and motion. Nontender with no deformity. No lesions are appreciated. Cardiovascular: Regular rate and rhythm with a normal S1 and S2. No gallops, murmurs, or rubs. Normal PMI, no JVD. No pulse deficits. Respiratory: Lungs have equal breath sounds bilaterally, clear to auscultation and percussion. No rales, rhonchi or wheezes noted. No increased work of breathing, no retractions or nasal flaring. Abdomen/GI: Soft, non-tender, with normal bowel sounds. No distension or tympany. No guarding or rebound. No evidence of tenderness throughout. Back: No spinal tenderness. No costovertebral tenderness. Full range of motion. Male : Normal genitalia with no discharge or lesions. Skin: Warm, dry with normal turgor. Normal color with no rashes, no lesions, and no evidence of cellulitis. MS/ Extremity: Pulses equal, no cyanosis. Neurovascular intact. Full, normal range of motion. Neuro: Awake and alert, GCS 15, oriented to person, place, time, and situation. Cranial nerves II-XII grossly intact. Motor strength 5/5 in all extremities. Sensory grossly intact. Cerebellar exam normal. Normal gait. Psych: Awake, alert, with orientation to person, place and time. Behavior, mood, and affect are within normal limits. 22:22 ECG was reviewed by the Attending Physician. Vital Signs: 20:36 BP 140 / 55; Pulse 71; Resp 16; Temp 98.5(O); Pulse Ox 93% on R/A; Weight 86.18 kg; 3 Height 5 ft. 11 in. (180.34 cm); Pain 0/10; 21:00 BP 151 / 62; Pulse 78; Resp 19; Pulse Ox 94% on R/A; 3 22:00 BP 145 / 74; Pulse 85; Resp 20; Pulse Ox 97% on R/A; 3 23:00 BP 131 / 81; Pulse 86; Resp 22; Pulse Ox 96% on R/A; [facility] 03/11 00:00 BP 127 / 79; Pulse 89; Resp 20; Pulse Ox 97% on R/A; [facility] 03/10 20:36 Body Mass Index 26.50 (86.18 kg, 180.34 cm) [facility] MDM: 03/10 20:45 Patient medically screened. shawna 22:24 Differential diagnosis: closed head injury. Differential Diagnosis: CVA, electrolyte shawna abnormality, hypoglycemia, intracranial bleed, pneumonia, TIA, UTI, volume depletion. Data reviewed: vital signs, nurses notes, EMS record, lab test result(s), EKG, radiologic studies, CT scan, plain films. Data interpreted: bus driver/monitor: rate is 78 beats/min, rhythm is regular, Pulse oximetry: on room air is 94 %. Test interpretation: by ED physician or midlevel provider: ECG, plain radiologic studies. Counseling: I had a detailed discussion with the patient and/or guardian regarding: the historical points, exam findings, and any diagnostic results supporting the discharge/admit diagnosis, lab results, radiology results, the need for outpatient follow up, for definitive care, a family practitioner, a neurologist. Medical screen evaluation completed. EMTALA emergency medical condition absent. Medical screen evaluation completed. EMTALA emergency medical condition absent. 03/10 20:49 Order name: Basic Metabolic Panel; Complete Time: 00:10 [facility] 03/10 20:49 Order name: CBC with Diff; Complete Time: 23:59 [facility] 03/10 20:49 Order name: LFT's; Complete Time: 00:10 [facility] 03/10 20:49 Order name: Magnesium; Complete Time: 00:10 [facility] 03/10 20:49 Order name: NT PRO-BNP; Complete Time: 00:10 [facility] 03/10 20:49 Order name: PT-INR; Complete Time: 23:59 [facility] 03/10 20:49 Order name: Troponin HS; Complete Time: 00:10 [facility] 03/10 20:49 Order name: XRAY Chest (1 view); Complete Time: 22:38 [facility] 03/10 20:49 Order name: SARS RAPID; Complete Time: 23:27 [facility] 03/10 21:14 Order name: CT Head C Spine; Complete Time: 22:16 2 03/10 22:21 Order name: Flu [facility] 03/10 20:49 Order name: EKG; Complete Time: 20:50 [facility] 03/10 20:49 Order name: Cardiac monitoring; Complete Time: 20:57 [facility] 03/10 20:49 Order name: EKG - Nurse/Tech; Complete Time: 22:18 [facility] 03/10 20:49 Order name: IV Saline Lock; Complete Time: 23:39 [facility] 03/10 20:49 Order name: Labs collected and sent; Complete Time: 23:39 [facility] 03/10 20:49 Order name: O2 Per Protocol; Complete Time: 20:57 [facility] 03/10 20:49 Order name: O2 Sat Monitoring; Complete Time: 20:57 [facility] EC:22 Rate is 89 beats/min. Rhythm is regular. QRS Sawyer is Normal. ND interval is normal. QRS shawna interval is normal. QT interval is prolonged at 464 msec. T waves are Normal. No ST changes noted. Clinical impression: NSR w/ Non-specific ST/T Changes and No evidence of ischemia. Administered Medications: 23:44 Drug: NS 0.9% 500 ml Route: IV; Rate: bolus; Site: left upper arm; eh3 03/11 00:15 Follow up: IV Status: Completed infusion; IV Intake: 500ml 3 Disposition Summary: 03/11/22 00:13 Discharge Ordered Location: Home shawna Problem: new shawna Symptoms: have improved shawna Condition: Stable shawna Diagnosis - Fall on same level, unspecified shawna - Unspecified injury of head, initial encounter shawna - Dementia in other diseases classified elsewhere without behavioral disturbance shawna Followup: shawna - With: Private Physician - When: 2 - 3 days - Reason: Recheck today's complaints, Continuance of care, Re-evaluation by your physician Followup: shawna - With: - When: 2 - 3 days - Reason: Recheck today's complaints, Re-evaluation by your physician Discharge Instructions: - Discharge Summary Sheet shawna - Dementia shawna - Head Injury, Adult shawna - Fall Prevention in the Home, Adult shawna - Fall Prevention in the Home, Adult, [id number] shawna - Head Injury, Adult, [id number] shawna - Dementia, [id number] shawna - Dementia Caregiver Guide shawna Forms: - Medication Reconciliation Form shawna - Thank You Letter shawna - Antibiotic Education shawna - Prescription Opioid Use shawna Signatures: Dispatcher [employer] EDMS Hung Staley MD MD cha Hall, Erin RN RN eh3 Corrections: (The following items were deleted from the chart) 03/10 21:24 20:54 Head Brain Wo [id number].[id number] ordered. EDMS EDMS
[2022-03-11 01:41] VITALS: TEMP 98.5
[2022-03-11 01:44] VITALS: BP 127/79; O2SAT 97
--- NOTE | 2022-03-11 15:57 | EKG ---
Test Date: 2022-03-10 Test Time: 22:15:19 Pharmacy Technician Infusion: [facility] MEASUREMENT RESULTS: Intervals: Rate: 89 IN: 170 QRSD: 100 QT: 382 QTc: 464 Allyn: P: 66 IN: 170 QRS: 36 T: 70 INTERPRETIVE STATEMENTS: Normal sinus rhythm Low voltage QRS Nonspecific ST and T wave abnormality Prolonged QT Abnormal ECG Compared to ECG 04/01/2021 03:44:26 Low QRS voltage now present ST (T wave) deviation now present Prolonged QT interval now present Sinus bradycardia no longer present Sinus arrhythmia no longer present Left-axis deviation no longer present Myocardial infarct finding no longer present Electronically Signed On 03-11-22 15:55:16 ENVIRONMENTAL ANALYST by Ty Delaney
== END 2022-03-11 00:20 | disposition home or self-care (01) ==
LOC: ER 20:25
DX: S09.90XA Unspecified injury of head, initial encounter (principal); F03.90 Unspecified dementia, unspecified severity, without behavioral disturbance, psychotic disturbance, mood disturbance, and anxiety; W18.30XA Fall on same level, unspecified, initial encounter; Z20.822 Contact with and (suspected) exposure to COVID-19; Z95.818 Presence of other cardiac implants and grafts; F17.210 Nicotine dependence, cigarettes, uncomplicated
CPT/HCPCS: 36415; 70450; 71045; 72125; 80048; 80076; 83735; 83880; 84484; 85025; 85610; 87804; 87811; 93005; 96360; 99284

== ENCOUNTER 2023-02-20 16:02 | Inpatient (IN) | payer OTHER ==
--- OUTSIDE RECORDS SUMMARY | 2023-02-20 16:15 | XMS REPORT | Continuity of Care Document ---
:1945 Author Organization [facility] t Address [address] [facility] [address] [place] [address] Care Team Providers Name Role Phone Dwight Tate DO Erich Primary Care Physician [phone] MAX MCCABE Attending Clinician Unavailable Dwight Tate Attending Clinician Unavailable Ashley Rizzo Attending Clinician Unavailable DEJUAN PICHARDO Attending Clinician Unavailable RANDI TORREZ Attending Clinician Unavailable Rahat Garcia RN Attending Clinician Unavailable KEN TORREZ Attending Clinician Unavailable Skyler Kyle MD Attending Clinician Ken Torrez MD Attending Clinician Cayrn Ross MD Attending Clinician Karina Disla MD Attending Clinician Lisa Villa MD Attending Clinician TIM WASHINGTON Attending Clinician Unavailable Tim [place] MD Attending Clinician Max Mccabe MD Attending Clinician Sgrpruchi AGACNP, Alma Attending Clinician CUBA ELMORE S Attending Clinician Unavailable Ramírez PAC, [place] S Attending Clinician Doctor Unassigned, Lequire Attending Clinician Unavailable Kylee DEL TORO, Dejuan Attending Clinician Unruly BERMUDEZ Attending Clinician Unavailable Unruly Lloyd Attending Clinician Torrez LONG WALL MINING MACHINE TENDER, Randi Attending Clinician NICOLAS WILSON Attending Clinician Unavailable Nurse, [facility] Surgery Gu Attending Clinician Unavailable Katie DEL TORO, Nicolas Attending Clinician Renae SHARP, Amy Trejo Attending Clinician Unavailable MICHAEL BERNSTEIN Attending Clinician Unavailable Benedict DEL TORO, Ruperto Markham Attending Clinician Michael Bernstein DO Attending Clinician Robinson Stewart MD Attending Clinician Asim JONES, Janet A Attending Clinician Unavailable Herbie Juares MD Attending Clinician SEBASTIEN DAVIDSON Attending Clinician Unavailable Dirk HOP, Sherwin Attending Clinician HERBIE JUARES Attending Clinician Unavailable HERBIE JUARES Attending Clinician Unavailable Laisha PT, Rach T Attending Clinician Unavailable TIKA SAL Attending Clinician Unavailable Tika Sal MD Attending Clinician Nano Harper LCSW Attending Clinician KANDIS VASQUES Attending Clinician Unavailable Kandis Vasques DO Attending Clinician SHERWIN CAVAZOS Attending Clinician Unavailable SU BRIONES Attending Clinician Unavailable Luz BRAN, Su Rhodes Attending Clinician Hector Chatterjee MD Attending Clinician Natalie SWEET, Norma Attending Clinician ABIGAIL BERKOWITZ Attending Clinician Unavailable Beatriz Steel MD Attending Clinician Jan FRANKLIN Abigail Attending Clinician DAVID MORTENSEN Attending Clinician Unavailable MD MELVI DARNELL Attending Clinician Unavailable MAX MCCABE Admitting Clinician Unavailable KEN TORREZ Admitting Clinician Unavailable eKn Torrez MD Admitting Clinician CUBA ELMORE Admitting Clinician Unavailable ROBINSON STEWART Admitting Clinician Unavailable Robinson Stewart MD Admitting Clinician SHERWIN CAVAZOS Admitting Clinician Unavailable KANDIS VASQUES Admitting Clinician Unavailable Max Mccabe MD Admitting Clinician BEATRIZ STEEL Admitting Clinician Unavailable Beatriz Steel MD Admitting Clinician DAYTON GARCIA Admitting Clinician Unavailable MD MELVI DARNELL Admitting Clinician Unavailable Payers Payer Name Policy Type Policy Number Effective Date Expiration Date Shahrzad sánchez [employer] [id number] 2021spring 00:00:00 [id number] C1 [id number] 2020 Common S pirit ing Medicare 00:00:00 [facility] Problems Condition Condition Condition Status Onset Resolution Last Treating Co mments Source Name Details Category Date Date Treatment Clinician Date Acute Acute Disease Active Univers kidney kidney 3-21 ity of injury injury 00:00: [place] superimpos superimpos 00 Me dical ed on CKD ed on CKD Bran ch Dyslipidem Dyslipidem Disease Active U nivers ia ia 3-21 ity of 00:00: [place] 00 Medical Branch Coronary Coronary Disease Active Unive rs artery artery 3-21 ity of disease disease 00:00: [place] involving involving 00 Medi maximo [place] Branch coronary coronary artery of artery of [place] heart heart without without angina angina pectoris pectoris Elevated Elevated Disease Active Unive rs troponin I troponin I 3-21 it y of level level 00:00: [place] 00 Medical Branch Elevated Elevated Disease Active Unive rs brain brain 3-21 ity of natriureti natriureti [place] c peptide c peptide 00 Medi maximo (BNP) (BNP) Branch level level Generalize Generalize Disease Active U nivers d weakness d weakness 1-19 it y of 00:00: [place] [facility] Acute Acute Disease Active 2021-05 Univers encephalop encephalop 1-21 it y of athy athy 00:00: [place] [id number] Medical Branch Normal Normal Disease Active 2021-05 Univers pressure pressure 1-11 ity of hydrocepha hydrocepha 00:[place] chela chela 00 Medical Branch Altered Altered Disease Active Univers mental mental 6-19 ity of status, status, 00:00: [place] unspecifie unspecifie 00 Me dical d altered d altered Bran ch mental mental status status type type Calculus Calculus Disease Active [facility] di of of 4-17 st gallbladde gallbladde 00:00: Ho spita r without r without 00 l cholecysti cholecysti tis tis without without obstructio obstructio n n [id number] 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 - [facility] disease [facility] [id number] Ischemic Problem Comm on heart Spirit disease - [facility] [id number] Acute on Problem Comm on chronic Spirit systolic - [facility] congestive heart [facility] failure Medical Center [id number] Cataract Problem Comm on extraction Spirit status, - [facility] unspecifie [facility] eye [facility] [id number] Reduced Problem Commo n vision [facility] Hyperlipid Hyperlipem Problem C ommon aemia ia [facility] [id number] Presence Problem Comm on of Spirit intraocula - [facility] r lens [facility] [id number] Chronic Problem Commo n diarrhea [facility] [id number] Blurry Problem Common vision [facility] [id number] History of Problem Co mmon kidney Spirit stones - [facility] [id number] Chronic Problem Commo n kidney Spirit disease, - [facility] unspecifie [facility] CKD [facility] stage [facility] [id number] Other Problem Common chronic Spirit pain - [facility] [id number] Pain in Problem Common right knee [facility] [id number] Elevated Problem Comm on blood Spirit pressure - [facility]I reading St without [facility] diagnosis Medical of Center hypertensi on [id number] Pain in Problem Comm on left knee Spirit - [facility] [id number] Mixed Problem Common hyperlipid Spirit emia - [facility] [id number] Right leg Problem Co mmon [id number] paresthesi Spiri t as - [facility] [id number] Dementia Problem Commo n without Spirit behavioral - [facility] disturb[facility] type [id number] Acute Problem Common systolic Spirit congestive - [facility] heart failure [facility] [id number] Coronary Problem Com mon 107 artery Spirit disease - [facility] involving [place] [facility] coronary Medical artery of [place] heart with angina pectoris [id number] Non-intrac Problem Com mon table Spirit vomiting - [facility] with [facility] un[facility] Medica l d vomiting Center type Vitamin D Vitamin D Problem Com mon deficiency deficiency Sp brielle - [facility] [id number] Cellulitis Problem Com mon of chest Spirit wall - [facility] Disorder Prostate Problem Commo n of disorder Spirit prostate - [facility] [id number] History of Problem Co mmon placement Spirit of stent - [facility] in LAD coronary [facility] artery [facility] [id number] Systolic Problem Commo n congestive Spirit heart - [facility] failure, St unspecifie [facility] d HF Medical chronicity Center [id number] Frequent Problem Comm on falls Spirit - CHI [facility] [id number] Essential Problem Comm on hypertensi Spirit on - [facility] [id number] Tobacco Problem Commo n use Spirit disorder - [facility] [id number] Incontinen Problem Com mon ce of Spirit feces, - [facility]I unspecifie [facility] fecal [facility] incontinen Medica l ce type Center Allergies, Adverse Reactions, Alerts Allergy Allergy Status Severity Reaction(s) Onset Inactive Treating Comm ents Source Name Type Date Date Clinician NO KNOWN Drug Active Univers ALLERGIE Class ity of [facility] Medical Branch Social History Social Habit Start Date Stop Date Quantity Comments Source History SDOH Social Unive rsity of [facility] Med ical Together Branch History SDOH Social Unive rsity of [facility] Branch History SDOH Social Unive rsity of [facility] Medical Membership Branch History SDOH Social Unive rsity of [facility] Medical Meetings Branch History SDOH University o f Housing Places [facility] Gender identity Universit y of [place] [facility] History of tobacco Cigarette Smoker University of use [facility] Branch Sexual orientation [facility] Exposure to 2022-09-04 2022-09-14 Not sure University of SARS-CoV-2 (event) 00:00:00 10:18:00 [place] [facility] History SDOH 2022-07-21 2022-07-21 1 University o f Alcohol Frequency 00:00:00 00:00:00 [place] M edical Branch History SDOH 2022-07-21 2022-07-21 0 University o f Alcohol Std Drinks 00:00:00 00:00:00 [place] [facility] History SDOH 2022-07-21 2022-07-21 1 University o f Alcohol Binge 00:00:00 00:00:00 [place] Medic al Branch History SDOH Social 2022-07-21 2022-07-21 5 Unive rsity of Connections Phone 00:00:00 00:00:00 [facility] edical Branch History SDOH Social 2022-07-21 2022-07-21 6 Unive rsity of Connections Living 00:00:00 00:00:00 [place] [facility] History SDOH 2022-07-21 2022-07-21 0 University o f Physical Activity 00:00:00 00:00:00 [place] M edical DPW Branch History SDOH 2022-07-21 2022-07-21 0 University o f Physical Activity 00:00:00 00:00:00 [place] M edical MPS Branch History SDOH 2022-07-21 2022-07-21 5 University o f Financial 00:00:00 00:00:00 [place] [facility] History SDOH Food 2022-07-21 2022-07-21 1 Univers ity of Worry 00:00:00 00:00:00 [place] [facility] History SDOH Food 2022-07-21 2022-07-21 1 Univers ity of Scarcity 00:00:00 00:00:00 [place] [facility] History SDOH 2022-07-21 2022-07-21 2 University o f Transport Med 00:00:00 00:00:00 [place] Medic al Branch History SDOH 2022-07-21 2022-07-21 2 University o f Transport Non-Med 00:00:00 00:00:00 [place] M edical Branch History SDOH 2022-07-21 2022-07-21 2 University o f Housing Unable to 00:00:00 00:00:00 [place] M edical Pay Branch History SDOH 2022-07-21 2022-07-21 2 University o f Housing Homeless 00:00:00 00:00:00 [facility] dical Last Year Branch Tobacco use and 2022-03-17 2022-03-17 Smokeless Universit y of exposure 00:00:00 00:00:00 tobacco non-user [facility] dical Branch Education 2022-03-11 2022-03-11 13 University of 00:00:00 00:00:00 [facility] History of Social 2020-08-20 2020-08-[address] function 00:00:00 00:00:00 Hospital Alcohol intake 2020-08-17 2020-08-17 Current drinker [facility] dist 00:00:00 00:00:00 of alcohol Hospital (finding) Sex Ass[birth year] At [birth year] Hoahaoism 00:00:00 00:00:00 Hospital Smoking Status Start Date Stop Date Source Occasional tobacco smoker 2022-03-17 00:00:00 Un iversity of [place] [facility] Tobacco smoking consumption Univ ersity of [facility] Branch Current Smoker 2021-01-31 00:00:00 Common Spiri t - [facility] nter Medications Ordered Filled Start Stop Current Ordering Indication Dosage Frequency Signature Comments Components Source Medication Medication Date Date Medication? Clinician (SIG) Name Name atorvastati Yes 40mg Take 1 Univ ers n 40 mg 9-27 tablet by ity of tablet 18:54: mouth [place] [address] every Medical evening. Branch memantine 5 2022- Yes 5mg Take 1 Univ ers mg tablet 9-27 tablet by ity o f 18:54: mouth in [place] [address] the Medical morning. Branch memantine Hcl clopidogreL Yes 75mg Take 1 Univ ers 75 mg 9-27 tablet by ity of tablet 18:54: mouth in [place] [address] the Medical morning. Branch foLIC acid 2022- Yes 1mg Take 1 Unive rs 1 mg tablet 9-27 tablet by ity of 18:54: mouth in [place] [address] the Medical morning. Branch furosemide 2022-0 Yes 20mg Take 1 Unive rs 20 mg 9-27 tablet by ity of tablet 18:54: mouth as [place] 49 needed. Medical Branch states only taking prn isosorbide 2023-0 Yes 60mg Take 1 Unive rs mononitrate 9-27 tablet by ity of 60 mg 24 hr 18:54: mouth [place] 49 the Medical morning. Branch donepeziL 5 3-0 Yes 5mg Take 1 Univ ers mg tablet 9-27 tablet by ity o f 18:54: mouth at [place] 49 bedtime. Medical Donepezil Branch hcl atorvastati 3-0 Yes 40mg Take 1 Univ ers n 40 mg 9-27 tablet by ity of tablet 18:54: mouth [place] 49 every Medical evening. Branch memantine 5 3-0 Yes 5mg Take 1 Univ ers mg tablet 9-27 tablet by ity o f 18:54: mouth in [place] 49 the Medical morning. Branch memantine Hcl clopidogreL 3-0 Yes 75mg Take 1 Univ ers 75 mg 9-27 tablet by ity of tablet 18:54: mouth in [place] 49 the Medical morning. Branch foLIC acid 2023-0 Yes 1mg Take 1 Unive rs 1 mg tablet 9-27 tablet by ity of 18:54: mouth in [place] 49 the Medical morning. Branch furosemide 2023-0 Yes 20mg Take 1 Unive rs 20 mg 9-27 tablet by ity of tablet 18:54: mouth as [place] 49 needed. Medical Branch states only taking prn isosorbide 2023-0 Yes 60mg Take 1 Unive rs mononitrate 9-27 tablet by ity of 60 mg 24 hr 18:54: mouth in [place] tablet 49 the Medical morning. Branch donepeziL 5 3-0 Yes 5mg Take 1 Univ ers mg tablet 9-27 tablet by ity o f 18:54: mouth at [place] 49 bedtime. Medical Donepezil Branch hcl atorvastati 2023-0 Yes 40mg Take 1 Univ ers n 40 mg 9-27 tablet by ity of tablet 18:54: mouth [place] 49 every Medical evening. Branch memantine 5 2023-0 Yes 5mg Take 1 Univ ers mg tablet 9-27 tablet by ity o f 18:54: mouth in [place] 49 the Medical morning. Branch memantine Hcl clopidogreL 2023-0 Yes 75mg Take 1 Univ ers 75 mg 9-27 tablet by ity of tablet 18:54: mouth in [place] 49 the Medical morning. Branch foLIC acid 3-0 Yes 1mg Take 1 Unive rs 1 mg tablet 9-27 tablet by ity of 18:54: mouth in [place] 49 the Medical morning. Branch furosemide 2023-0 Yes 20mg Take 1 Unive rs 20 mg 9-27 tablet by ity of tablet 18:54: mouth as [place] 49 needed. Medical Branch states only taking prn isosorbide 2023-0 Yes 60mg Take 1 Unive rs mononitrate 9-27 tablet by ity of 60 mg 24 hr 18:54: mouth in [place] tablet 49 the Medical morning. Branch donepeziL 5 3-0 Yes 5mg Take 1 Univ ers mg tablet 9-27 tablet by ity o f 18:54: mouth at [place] bedtime. Medical Donepezil Branch hcl atorvastati 3-0 Yes 40mg Take 1 Univ ers n 40 mg 9-27 tablet by ity of tablet 18:54: mouth [place] 49 every Medical evening. Branch memantine 5 3-0 Yes 5mg Take 1 Univ ers mg tablet 9-27 tablet by ity o f 18:54: mouth in [place] 49 the Medical morning. Branch memantine Hcl clopidogreL 3-0 Yes 75mg Take 1 Univ ers 75 mg 9-27 tablet by ity of tablet 18:54: mouth in [place] 49 the Medical morning. Branch foLIC acid 3-0 Yes 1mg Take 1 Unive rs 1 mg tablet 9-27 tablet by ity of 18:54: mouth in [place] 49 the Medical morning. Branch furosemide 3-0 Yes 20mg Take 1 Unive rs 20 mg 9-27 tablet by ity of tablet 18:54: mouth as [place] needed. Medical Branch states only taking prn isosorbide 2023-0 Yes 60mg Take 1 Unive rs mononitrate 9-27 tablet by ity of 60 mg 24 hr 18:54: mouth in [place] tablet 49 the Medical morning. Branch donepeziL 5 3-0 Yes 5mg Take 1 Univ ers mg tablet 9-27 tablet by ity o f 18:54: mouth at [place] bedtime. Medical Donepezil Branch hcl atorvastati 2023-0 Yes 40mg Take 1 Univ ers n 40 mg 9-27 tablet by ity of tablet 18:54: mouth [place] 49 every Medical evening. Branch memantine 5 3-0 Yes 5mg Take 1 Univ ers mg tablet 9-27 tablet by ity o f 18:54: mouth in [place] 49 the Medical morning. Branch memantine Hcl clopidogreL 3-0 Yes 75mg Take 1 Univ ers 75 mg 9-27 tablet by ity of tablet 18:54: mouth in [place] 49 the Medical morning. Branch foLIC acid 2023-0 Yes 1mg Take 1 Unive rs 1 mg tablet 9-27 tablet by ity of 18:54: mouth in [place] 49 the Medical morning. Branch furosemide 2023-0 Yes 20mg Take 1 Unive rs 20 mg 9-27 tablet by ity of tablet 18:54: mouth as [place] needed. Medical Branch states only taking prn isosorbide 2023-0 Yes 60mg Take 1 Unive rs mononitrate 9-27 tablet by ity of 60 mg 24 hr 18:54: mouth in [facility] 49 the Medical morning. Branch donepeziL 5 3-0 Yes 5mg Take 1 Univ ers mg tablet 9-27 tablet by ity o f 18:54: mouth at [place] bedtime. Medical Donepezil Branch hcl atorvastati 3-0 Yes 40mg Take 1 Univ ers n 40 mg 9-27 tablet by ity of tablet 18:54: mouth [place] 49 every Medical evening. Branch memantine 5 3-0 Yes 5mg Take 1 Univ ers mg tablet 9-27 tablet by ity o f 18:54: mouth in [place] 49 the Medical morning. Branch memantine Hcl clopidogreL 3-0 Yes 75mg Take 1 Univ ers 75 mg 9-27 tablet by ity of tablet 18:54: mouth in [place] 49 the Medical morning. Branch foLIC acid 2023-0 Yes 1mg Take 1 Unive rs 1 mg tablet 9-27 tablet by ity of 18:54: mouth in [place] 49 the Medical morning. Branch furosemide 2023-0 Yes 20mg Take 1 Unive rs 20 mg 9-27 tablet by ity of tablet 18:54: mouth as [place] 49 needed. Medical Branch states only taking prn isosorbide 2023-0 Yes 60mg Take 1 Unive rs mononitrate 9-27 tablet by ity of 60 mg 24 hr 18:54: mouth in [place] tablet 49 the Medical morning. Branch donepeziL 5 3-0 Yes 5mg Take 1 Univ ers mg tablet 9-27 tablet by ity o f 18:54: mouth at [place] bedtime. Medical Donepezil Branch hcl atorvastati 3-0 Yes 40mg Take 1 Univ ers n 40 mg 9-27 tablet by ity of tablet 18:54: mouth [place] 49 every Medical evening. Branch memantine 5 3-0 Yes 5mg Take 1 Univ ers mg tablet 9-27 tablet by ity o f 18:54: mouth in [place] 49 the Medical morning. Branch memantine Hcl clopidogreL 3-0 Yes 75mg Take 1 Univ ers 75 mg 9-27 tablet by ity of tablet 18:54: mouth in [place] the Medical morning. Branch foLIC acid 3-0 Yes 1mg Take 1 Unive rs 1 mg tablet 9-27 tablet by ity of 18:54: mouth in [place] the Medical morning. Branch furosemide 3-0 Yes 20mg Take 1 Unive rs 20 mg 9-27 tablet by ity of tablet 18:54: mouth as [place] 49 needed. Medical Branch states only taking prn isosorbide 3-0 Yes 60mg Take 1 Unive rs mononitrate 9-27 tablet by ity of 60 mg 24 hr 18:54: mouth in [place] tablet 49 the Medical morning. Branch donepeziL 5 3-0 Yes 5mg Take 1 Univ ers mg tablet 9-27 tablet by ity o f 18:54: mouth at [place] [address] bedtime. Medical Donepezil Branch hcl atorvastati 3-0 Yes 40mg Take 1 Univ ers n 40 mg 9-27 tablet by ity of tablet 18:54: mouth [place] 49 every Medical evening. Branch memantine 5 3-0 Yes 5mg Take 1 Univ ers mg tablet 9-27 tablet by ity o f 18:54: mouth in [place] 49 the Medical morning. Branch memantine Hcl clopidogreL 2023-0 Yes 75mg Take 1 Univ ers 75 mg 9-27 tablet by ity of tablet 18:54: mouth in [place] the Medical morning. Branch foLIC acid 2023-0 Yes 1mg Take 1 Unive rs 1 mg tablet 9-27 tablet by ity of 18:54: mouth in [place] 49 the Medical morning. Branch furosemide 3-0 Yes 20mg Take 1 Unive rs 20 mg 9-27 tablet by ity of tablet 18:54: mouth as [place] 49 needed. Medical Branch states only taking prn isosorbide 2023-0 Yes 60mg Take 1 Unive rs mononitrate 9-27 tablet by ity of 60 mg 24 hr 18:54: mouth in [place] tablet 49 the Medical morning. Branch donepeziL 5 3-0 Yes 5mg Take 1 Univ ers mg tablet 9-27 tablet by ity o f 18:54: mouth at [place] [address] bedtime. Medical Donepezil Branch hcl D5W 0.45% 2023-0 Yes 1000mL at 100 Univ ers NaCl 9-24 mL/hr, ity of (1/2NS) IV 18:00: 1,000 mL, [place] infusion 00 IV Medical 1,000 mL Infusion, Branch CONTINUOUS , Starting on 01/22/23 at 1300, Until Discontinu ed, Routine D5W 0.45% 2023-0 Yes 1000mL at 100 Univ ers NaCl 9-24 mL/hr, ity of (1/2NS) IV 18:00: 1,000 mL, [place] infusion 00 IV Medical 1,000 mL Infusion, Branch CONTINUOUS , Starting on Mon01/22/23 at 1300, Until Discontinu ed, Routine isosorbide 3-0 Yes 20mg 20 mg, Unive rs dinitrate - Oral, ity of (ISORDIL) 17:00: TIDHOL, [place] tablet 20 00 First dose Medi maximo mg on Mon01/20/23 at 1200, Until Discontinu ed, Routine isosorbide 3-0 Yes 20mg 20 mg, Unive rs dinitrate - Oral, ity of (ISORDIL) 17:00: TIDHOL, [place] tablet 20 00 First dose Medi maximo mg on Mon Branch 01/20/23 at 1200, Until Discontinu ed, Routine docusate 2023-0 Yes 100mg 100 mg, Unive rs (COLACE) 50 9-20 Enteral, ity of mg/5 mL 13:00: BID, [place] solution 00 dose on Medical 100 mg Mon01/18/23 at 0800, Until Discontinu ed, Routine docusate 2023-0 Yes 100mg 100 mg, Unive rs (COLACE) 50 01-18 Enteral, ity of mg/5 mL 13:00: BID, [place] solution 00 dose on Medical 100 mg Mon Branch 01/18/23 at 0800, Until Discontinu ed, Routine NaCl 0.9% 2022- No 1000mL at 125 Uni vers (NS) IV 01-18 09-24 mL/hr, IV ity of infusion 06:00: 16:56 Infusion, [place] 1,000 mL 00 :33 CONTINUOUS Medic al , Starting Branch on Mon01/18/23 at 0100, Until Mon01/22/23 at 1156, Routine cyanocobala 2022- No 1000ug 1,000 mcg, Univers min (DODEX) 01-1618 Intramuscu i ty of injection 20:45: 22:03 lar, ONCE, [place] 1,000 mcg 00 :00 1 dose, On Medi maximo Mon Branch 01/16/23 at 1545, Routine ipratropium 2023-0 Yes .5mg 0.5 mg, Uni vers (ATROVENT) 01-15 Inhalation ity of 0.02 % 19:00: , TID, [place] nebulizer 00 First dose Medi maximo solution (after Branch 0.5 mg last modificati on) on Mon01/15/23 at 1400, Until Discontinu ed, Routine ipratropium 2023-0 Yes .5mg 0.5 mg, Uni vers (ATROVENT) 01-15 Inhalation ity of 0.02 % 19:00: , TID, [place] nebulizer 00 First dose Medi maximo solution (after Branch 0.5 mg last modificati on) on Mon01/15/23 at 1400, Until Discontinu ed, Routine hydralAZINE 2023-0 Yes 10mg 10 mg, Univ ers (APRESOLINE 9-16 Slow IV ity o f ) injection 04:08: Push, [place] 10 mg 16 Q6HPRN, Medical Starting Branch on Mon01/13/23 at 2308, Until Discontinu ed, Routine, DBP=>10 0; SBP=>180 hydralAZINE 2023-0 Yes 10mg 10 mg, Univ ers (APRESOLINE 9-16 Slow IV ity o f ) injection 04:08: Push, [place] 10 mg 16 Q6HPRN, Medical Starting Branch on Mon01/13/23 at 2308, Until Discontinu ed, Routine, DBP=>10 0; SBP=>180 thiamine 2022- No 100mg IV Univers (VITAMIN 01-13 Piggyback, ity of B1) 100 mg 20:30: 20:57 ONCE, 1 [place] in NaCl 00 :00 dose, On Medical 0.9% (NS) Mon Branch piggyback 01/13/23 at 1530, 50 mL clopidogreL 2022- No 75mg 75 mg, Uni vers (PLAVIX) 75 01-12 Oral, ity of mg tablet 14:00: 18:57 DAILY, [place] 75 mg 00 :14 First dose Medical on Mon Branch 01/12/23 at 0900, Until Discontinu ed, Routine ceFEPIme 2022- No 2000mg 2,000 mg, U nivers (MAXIPIME) 01-12 IV ity of 2,000 mg in 11:00: 02:03 Piggyback, [place] NaCl 0.9% 00 :00 Q12H ABX, Medic al (NS) 100 mL 10 doses, [facility] MINI-BAG First dose on Mon01/12/23 at 0600, Last dose on Mon01/16/23 at 1800, Administer over 4 Hours, 100 mL
Reas on for Anti-Infec tive: Documented Infection& lt;br>Docu mented Infection Site: Urine
D uration of Therapy: 7 days heparin Yes 5000U 5,000 Univers (porcine) 9-14 Units, ity of injection 03:00: [place]o [place] 5,000 Units 00 us, Q8H, [facility] maximo First dose Branch on Mon01/11/23 at 2200, Until Discontinu ed, Routine heparin Yes 5000U 5,000 Univers (porcine) 9-14 Units, ity of injection 03:00: [place]o [place] 5,000 Units 00 us, Q8H, [facility] maximo First dose Branch on Mon01/11/23 at 2200, Until Discontinu ed, Routine ipratropium 2022- No .5mg 0.5 mg, Un ellen (ATROVENT) 01-12 Inhalation it y of 0.02 % 01:00: 16:41 , QID, [place] nebulizer 00 :34 First dose Medi maximo solution on Mon [place] 0.5 mg 01/11/23 at 2000, Until Discontinu ed, Routine ceFEPIme 3-0 2023- No 2000mg 2,000 mg, U nivers (MAXIPIME) 01-11 IV ity of 2,000 mg in 23:00: 02:42 Piggyback, [place] NaCl 0.9% 00 :00 ONCE, 1 Medical (NS) 100 mL dose, On [facility] MINI-BAG [facility] 01/11/23 at 1800, Administer over 4 Hours, 100 mL
R ngozi for Anti-Infec tive: Documented Infection< br>Documen missy Infection Site: Urine
D uration of Therapy: Other (see Comments) albuterol 2022-0 Yes 2.5mg 2.5 mg, [facility] ers (PROVENTIL) 01-11 Inhalation it y of 2.5 mg /3 21:38: , Q6HPRN, [place] mL (0.083 38 Starting Medica l %) on [place] nebulizer 01/11/23 at solution 1638, 2.5 mg Until Discontinu ed, Routine, Shortness of Breath, Wheezing albuterol 2022-0 Yes 2.5mg 2.5 mg, [facility] ers (PROVENTIL) 01-11 Inhalation it y of 2.5 mg /3 21:38: , Q6HPRN, [place] mL (0.083 38 Starting Medica l %) on [place] nebulizer 01/11/23 at solution 1638, 2.5 mg Until Discontinu ed, Routine, Shortness of Breath, Wheezing donepeziL 3-0 Yes 5mg 5 mg, [facility] (ARICEPT) 9-13 Oral, QHS, ity of tablet 5 mg 02:00: First dose on [facility] 01/10/23 at Branch 2100, Until Discontinu ed, Routine donepeziL 3-0 Yes 5mg 5 mg, [facility] (ARICEPT) 9-13 Oral, QHS, ity of tablet 5 mg 02:00: First dose on [facility] 01/10/23 at Branch 2100, Until Discontinu ed, Routine atorvastati 3-0 Yes 40mg 40 mg, Univ ers n (LIPITOR) 9-12 Oral, QPM, it y of tablet 40 22:00: First dose [place] mg 00 on [facility] 01/10/23 at [place] 1700, Until Discontinu ed, Routine atorvastati 3-0 Yes 40mg 40 mg, Univ ers n (LIPITOR) 9-12 Oral, QPM, it y of tablet 40 22:00: First dose [place] mg 00 on [facility] 01/10/23 at [place] 1700, Until Discontinu ed, Routine atorvastati 2022-0 Yes 40mg Take 1 Univ ers n 40 mg 9-12 tablet by ity of tablet 18:12: mouth [place] [address] every Medical evening. Branch memantine 5 2022-0 Yes 5mg Take 1 Univ ers mg tablet 9-12 tablet by ity o f 18:12: mouth in [place] [address] the Medical morning. Branch memantine Hcl clopidogreL 2022-0 Yes 75mg Take 1 Univ ers 75 mg 9-12 tablet by ity of tablet 18:12: mouth in [place] [address] the Medical morning. Branch foLIC acid 2022-0 Yes 1mg Take 1 Unive rs 1 mg tablet 9-12 tablet by ity of 18:12: mouth in [place] [address] the Medical morning. Branch furosemide 3-0 Yes 20mg Take 1 Unive rs 20 mg 9-12 tablet by ity of tablet 18:12: mouth as [place] [address] needed. Medical Branch states only taking prn isosorbide 3-0 Yes 60mg Take 1 Unive rs mononitrate 9-12 tablet by ity of 60 mg 24 hr 18:12: mouth in [place] tablet 27 the Medical morning. Branch donepeziL 5 2022-0 Yes 5mg Take 1 Univ ers mg tablet 9-12 tablet by ity o f 18:12: mouth at [place] [address] bedtime. Medical Donepezil Branch hcl memantine 3-0 Yes 5mg 5 mg, Univers (NAMENDA) 9-12 Oral, ity of tablet 5 mg 14:00: [place] Medical on [facility] 01/10/23 at 0900, Until Discontinu ed, Routine
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 Restricted medication : PEPE KYLE foLIC acid 2022-0 Yes 1mg 1 mg, Univer s (FOLATE) 01-10 Oral, ity of tablet 1 mg 14:00: [place] First dose Medical on [facility] 01/10/23 at 0900, Until Discontinu ed, Routine memantine 2022-0 Yes 5mg 5 mg, Univers (NAMENDA) 01-10 Oral, ity of tablet 5 mg 14:00: [place] First dose Medical on [facility] 01/10/23 at 0900, Until Discontinu ed, Routine
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 Restricted medication : PEPE KYLE foLIC acid 2022-0 Yes 1mg 1 mg, Univer s (FOLATE) 01-10 Oral, ity of tablet 1 mg 14:00: [place] First dose Medical on [facility] 01/10/23 at 0900, Until Discontinu ed, Routine isosorbide 0 2022- No 60mg 60 mg, Univ ers mononitrate 01-10 Oral, ity of (IMDUR) 24 14:00: 15:31 DAILY, [place] hr tablet 00 :18 First dose Medi maximo 60 mg on [facility] 01/10/23 at 0900, Until Discontinu ed, Routine famotidine 2022-0 Yes 20mg 20 mg, Unive rs (PEPCID AC) 01-10 Oral, BID, it y of tablet 20 13:00: First dose [place] mg 00 on [facility] 01/10/23 at Branch 0800, Until Discontinu ed, Routine famotidine 2022-0 Yes 20mg 20 mg, Unive rs (PEPCID AC) 01-10 Oral, BID, it y of tablet 20 13:00: First dose [place] mg 00 on [facility] 01/10/23 at Branch 0800, Until Discontinu ed, Routine docusate 2022-0 2022- No 100mg 100 mg, Univ ers (COLACE) 01-10 Oral, BID, ity of capsule 100 13:00: 12:27 First dose [place] mg 00 :45 on [facility] 01/10/23 at Branch 0800, Until Discontinu ed, Routine NaCl 0.9% 0 2023- No 1000mL at 100 Uni vers (NS) IV 01-10 09-18 mL/hr, IV ity of infusion 10:45: 19:59 Infusion, [place] 1,000 mL 00 :14 CONTINUOUS Medic al , Starting Branch on Mon01/10/23 at 0545, Until 01/16/23 at 1459, Routine ondansetron 2023-0 Yes 4mg 4 mg, Slow Univers (ZOFRAN 12 IV Push, ity of (PF)) 10:07: Q6HPRN, [place] injection 4 22 Starting Medi maximo mg on Branch 01/10/23 at 0507, Until Discontinu ed, Routine, Nausea and Vomiting (N/V) ondansetron 2023-0 Yes 4mg 4 mg, Slow Univers (ZOFRAN 01-10 IV Push, ity of (PF)) 10:07: Q6HPRN, [place] injection 4 22 Starting Medi maximo mg on Mon Branch 01/10/23 at 0507, Until Discontinu ed, Routine, Nausea and Vomiting (N/V) morpHINE (2 2022-0 Yes 2mg 2 mg, Slow Univers mg/mL) 01-10 IV Push, ity of injection 2 09:27: Q2HPRN, [place] mg 04 Starting Medical on [facility] 01/10/23 at 0427, Until Discontinu ed, Routine, Pain (scale 7-10) morpHINE (2 3-0 Yes 2mg 2 mg, Slow Univers mg/mL) 912 IV Push, ity of injection 2 09:27: Q2HPRN, [place] mg 04 Starting Medical on [facility] 01/10/23 at 0427, Until Discontinu ed, Routine, Pain (scale 7-10) acetaminoph 2023-0 Yes 325mg 325 mg, Un ellen en -12 Oral, ity of (TYLENOL) 09:26: Q6HPRN, [place] tablet 325 58 Starting Medic al mg on [facility] 01/10/23 at 0426, Until Discontinu ed, Routine, Pain (scale 1-3) acetaminoph 2023-0 Yes 325mg 325 mg, Un ellen en -12 Oral, ity of (TYLENOL) 09:26: Q6RN, [place] tablet 325 58 Starting Medic al mg on Mon01/10/23 at 0426, Until Discontinu ed, Routine, Pain (scale 1-3) bisacodyL 2023-0 Yes 10mg 10 mg, Univer s (DULCOLAX) 9-12 Rectal, ity of suppository 09:24: QHSPRN, [place] 10 mg 26 Starting Medical on [place] 01/10/23 at 0424, Until Discontinu ed, Routine, Constipati on NaCl 0.9% 2023-0 Yes 5mL 5 mL, Slow Un ellen (NS) 9-12 IV Push, ity of injection 5 09:24: PRN - SEE [place] mL 26 [facility], Branch Starting on 01/10/23 at 0424, Until Discontinu ed, 10 mL bisacodyL 3-0 Yes 10mg 10 mg, Univer s (DULCOLAX) 9-12 Rectal, ity of suppository 09:24: QHSPRN, [place] 10 mg 26 Starting Medical on [place] 01/10/23 at 0424, Until Discontinu ed, Routine, Constipati on NaCl 0.9% 3-0 Yes 5mL 5 mL, Slow Un ellen (NS) 9-12 IV Push, ity of injection 5 09:24: PRN - SEE [place] mL 26 [facility], Branch Starting on Mon01/10/23 at 0424, Until Discontinu ed, 10 mL atorvastati 3-0 Yes 40mg Take 1 Univ ers n 40 mg 9-12 tablet by ity of tablet 04:27: mouth [place] 50 every Medical evening. Branch memantine 5 2022-0 Yes 5mg Take 1 Univ ers mg tablet 9-12 tablet by ity o f 04:27: mouth in [place] 50 the Medical morning. Branch memantine Hcl clopidogreL 2022-0 Yes 75mg Take 1 Univ ers 75 mg 9-12 tablet by ity of tablet 04:27: mouth in [place] 50 the Medical morning. Branch foLIC acid 2022-0 Yes 1mg Take 1 Unive rs 1 mg tablet 9-12 tablet by ity of 04:27: mouth in [place] 50 the Medical morning. Branch furosemide 3-0 Yes 20mg Take 1 Unive rs 20 mg 9-12 tablet by ity of tablet 04:27: mouth as [place] 50 needed. Medical Branch states only taking prn isosorbide 0 Yes 60mg Take 1 Unive rs mononitrate 9-12 tablet by ity of 60 mg 24 hr 04:27: mouth in [place] tablet 50 the Medical morning. Branch donepeziL 5 0 Yes 5mg Take 1 Univ ers mg tablet 9-12 tablet by ity o f 04:27: mouth at [place] 50 bedtime. Medical Donepezil Branch hcl NaCl 0.9% 2022- No 1000mL at 999 Uni vers (NS) bolus 01-10 mL/hr, ity of infusion 03:15: 03:36 1,000 mL, [place] 1,000 mL 00 :00 [facility] ON[facility], [facility] dose, On [facility] 01/09/23 at 2215, STAT iopamidol 2022- No [id number] 95mL 95 mL, U nivers (ISOVUE 01-09 Intravenou ity o f 370-500 mL) 05:15: 05:15 s, ONCE, 1 [place] injection 00 :00 dose, On Medica l 95 mL [facility] 01/09/23 at 0015, Routine cefTRIAXone 2022- No 1000mg 1,000 mg, Univers (ROCEPHIN) 12-26 IV ity of 1,000 mg in 18:45: 19:21 [place], [place] NaCl 0.9% 00 :00 ONCE, 1 Medical (NS) 100 mL dose, On Bran ch MINI-BAG [facility] 12/26/22 at 1345, Administer over 30 Minutes, 100 mL
Reas on for Anti-Infec tive: Documented Infection< br>Documen missy Infection Site: Urine<br&g t;Duration of Therapy: Other (see Comments) cefdinir 2022-0 2022- Yes [id number] 300mg Take 1 U nivers 300 mg 12-26 capsule by ity of capsule 00:00: 04:59 mouth [place] 00 :00 every 12 Medical (twelve) Branch hours for 10 days. cefdinir 2022-0 2022- Yes [id number] 300mg Take 1 U nivers 300 mg 12-26 capsule by ity of capsule 00:00: 04:59 mouth [place] 00 :00 every 12 Medical (twelve) Branch hours for 10 days. cefdinir 2023-0 2023- Yes [id number] 300mg Take 1 U nivers 300 mg 12-26 capsule by ity of capsule 00:00: 04:59 mouth [place] 00 :00 every 12 Medical (twelve) Branch hours for 10 days. cefdinir 2023-0 2023- Yes [id number] 300mg Take 1 U nivers 300 mg 12-26 capsule by ity of capsule 00:00: 04:59 mouth [place] 00 :00 every 12 Medical (twelve) Branch hours for 10 days. atorvastati 3-0 Yes 40mg Take 1 Univ ers n 40 mg 4-10 tablet by ity of tablet 16:36: mouth [place] every Medical evening. Branch memantine 5 2022-0 Yes 5mg Take 1 Univ ers mg tablet 4-10 tablet by ity o f 16:36: mouth in [place] [address] the Medical morning. Branch memantine Hcl clopidogreL 2022-0 Yes 75mg Take 1 Univ ers 75 mg 4-10 tablet by ity of tablet 16:36: mouth in [place] [address] the Medical morning. Branch foLIC acid 2022-0 Yes 1mg Take 1 Unive rs 1 mg tablet 4-10 tablet by ity of 16:36: mouth in [place] [address] the Medical morning. Branch furosemide 2022-0 Yes 20mg Take 1 Unive rs 20 mg 4-10 tablet by ity of tablet 16:36: mouth as [place] [address] needed. Medical Branch states only taking prn isosorbide 3-0 Yes 60mg Take 1 Unive rs mononitrate 4-10 tablet by ity of 60 mg 24 hr 16:36: mouth in [place] tablet 33 the Medical morning. Branch donepeziL 5 2022-0 Yes 5mg Take 1 Univ ers mg tablet 4-10 tablet by ity o f 16:36: mouth at [place] [address] bedtime. Medical Donepezil Branch hcl atorvastati 3-0 Yes 40mg Take 1 Univ ers n 40 mg 4-10 tablet by ity of tablet 16:36: mouth [place] every Medical evening. Branch memantine 5 3-0 Yes 5mg Take 1 Univ ers mg tablet 4-10 tablet by ity o f 16:36: mouth in [place] [address] the Medical morning. Branch memantine Hcl clopidogreL 2023-0 Yes 75mg Take 1 Univ ers 75 mg 4-10 tablet by ity of tablet 16:36: mouth in [place] the Medical morning. Branch foLIC acid 2023-0 Yes 1mg Take 1 Unive rs 1 mg tablet 4-10 tablet by ity of 16:36: mouth in [place] [address] the Medical morning. Branch furosemide 2023-0 Yes 20mg Take 1 Unive rs 20 mg 4-10 tablet by ity of tablet 16:36: mouth as [place] [address] needed. Medical Branch states only taking prn isosorbide 2023-0 Yes 60mg Take 1 Unive rs mononitrate 4-10 tablet by ity of 60 mg 24 hr 16:36: mouth in [place] tablet 33 the Medical morning. Branch donepeziL 5 2023-0 Yes 5mg Take 1 Univ ers mg tablet 4-10 tablet by ity o f 16:36: mouth at [place] [address] bedtime. Medical Donepezil Branch hcl atorvastati 2023-0 Yes 40mg Take 1 Univ ers n 40 mg 4-10 tablet by ity of tablet 16:36: mouth [place] every Medical evening. Branch memantine 5 2023-0 Yes 5mg Take 1 Univ ers mg tablet 4-10 tablet by ity o f 16:36: mouth in [place] [address] the Medical morning. Branch memantine Hcl clopidogreL 3-0 Yes 75mg Take 1 Univ ers 75 mg 4-10 tablet by ity of tablet 16:36: mouth in [place] [address] the Medical morning. Branch foLIC acid 2023-0 Yes 1mg Take 1 Unive rs 1 mg tablet 4-10 tablet by ity of 16:36: mouth in [place] [address] the Medical morning. Branch furosemide 2023-0 Yes 20mg Take 1 Unive rs 20 mg 4-10 tablet by ity of tablet 16:36: mouth as [place] [address] needed. Medical Branch states only taking prn isosorbide 2023-0 Yes 60mg Take 1 Unive rs mononitrate 4-10 tablet by ity of 60 mg 24 hr 16:36: mouth in [place] tablet 33 the Medical morning. Branch donepeziL 5 2023-0 Yes 5mg Take 1 Univ ers mg tablet 4-10 tablet by ity o f 16:36: mouth at [place] [address] bedtime. Medical Donepezil Branch hcl atorvastati 2023-0 Yes 40mg Take 1 Univ ers n 40 mg 4-10 tablet by ity of tablet 16:36: mouth [place] every Medical evening. Branch memantine 5 2023-0 Yes 5mg Take 1 Univ ers mg tablet 4-10 tablet by ity o f 16:36: mouth in [place] [address] the Medical morning. Branch memantine Hcl clopidogreL 2023-0 Yes 75mg Take 1 Univ ers 75 mg 4-10 tablet by ity of tablet 16:36: mouth in [place] [address] the Medical morning. Branch foLIC acid 2023-0 Yes 1mg Take 1 Unive rs 1 mg tablet 4-10 tablet by ity of 16:36: mouth in [place] [address] the Medical morning. Branch furosemide 2023-0 Yes 20mg Take 1 Unive rs 20 mg 4-10 tablet by ity of tablet 16:36: mouth as [place] [address] needed. Medical Branch states only taking prn isosorbide 2023-0 Yes 60mg Take 1 Unive rs mononitrate 4-10 tablet by ity of 60 mg 24 hr 16:36: mouth in [place] [address] the Medical morning. Branch donepeziL 5 2023-0 Yes 5mg Take 1 Univ ers mg tablet 4-10 tablet by ity o f 16:36: mouth at [place] [address] bedtime. Medical Donepezil Branch hcl atorvastati 2023-0 Yes 40mg Take 1 Univ ers n 40 mg 4-10 tablet by ity of tablet 16:36: mouth [place] [address] every Medical evening. Branch memantine 5 2023-0 Yes 5mg Take 1 Univ ers mg tablet 4-10 tablet by ity o f 16:36: mouth in [place] [address] the Medical morning. Branch memantine Hcl clopidogreL 2023-0 Yes 75mg Take 1 Univ ers 75 mg 4-10 tablet by ity of tablet 16:36: mouth in [place] [address] the Medical morning. Branch foLIC acid 2023-0 Yes 1mg Take 1 Unive rs 1 mg tablet 4-10 tablet by ity of 16:36: mouth in [place] [address] the Medical morning. Branch furosemide 2023-0 Yes 20mg Take 1 Unive rs 20 mg 4-10 tablet by ity of tablet 16:36: mouth as [place] [address] needed. Medical Branch states only taking prn isosorbide 2023-0 Yes 60mg Take 1 Unive rs mononitrate 4-10 tablet by ity of 60 mg 24 hr 16:36: mouth in [place] tablet 33 the Medical morning. Branch donepeziL 5 3-0 Yes 5mg Take 1 Univ ers mg tablet 4-10 tablet by ity o f 16:36: mouth at [place] [address] bedtime. Medical Donepezil Branch hcl atorvastati 3-0 Yes 40mg Take 1 Univ ers n 40 mg 4-10 tablet by ity of tablet 16:36: mouth [place] every Medical evening. Branch memantine 5 2023-0 Yes 5mg Take 1 Univ ers mg tablet 4-10 tablet by ity o f 16:36: mouth in [place] the Medical morning. Branch memantine Hcl clopidogreL 3-0 Yes 75mg Take 1 Univ ers 75 mg 4-10 tablet by ity of tablet 16:36: mouth in [place] the Medical morning. Branch foLIC acid 3-0 Yes 1mg Take 1 Unive rs 1 mg tablet 4-10 tablet by ity of 16:36: mouth in [place] [address] the Medical morning. Branch furosemide 2023-0 Yes 20mg Take 1 Unive rs 20 mg 4-10 tablet by ity of tablet 16:36: mouth as [place] [address] needed. Medical Branch states only taking prn isosorbide 3-0 Yes 60mg Take 1 Unive rs mononitrate 4-10 tablet by ity of 60 mg 24 hr 16:36: mouth in [place] tablet 33 the Medical morning. Branch donepeziL 5 3-0 Yes 5mg Take 1 Univ ers mg tablet 4-10 tablet by ity o f 16:36: mouth at [place] [address] bedtime. Medical Donepezil Branch hcl atorvastati 2023-0 Yes 40mg Take 1 Univ ers n 40 mg 4-10 tablet by ity of tablet 16:36: mouth [place] every Medical evening. Branch memantine 5 2023-0 Yes 5mg Take 1 Univ ers mg tablet 4-10 tablet by ity o f 16:36: mouth in [place] the Medical morning. Branch memantine Hcl clopidogreL 2023-0 Yes 75mg Take 1 Univ ers 75 mg 4-10 tablet by ity of tablet 16:36: mouth in [place] [address] the Medical morning. Branch foLIC acid 2023-0 Yes 1mg Take 1 Unive rs 1 mg tablet 4-10 tablet by ity of 16:36: mouth in [place] the Medical morning. Branch furosemide 2023-0 Yes 20mg Take 1 Unive rs 20 mg 4-10 tablet by ity of tablet 16:36: mouth as [place] [address] needed. Medical Branch states only taking prn isosorbide 2023-0 Yes 60mg Take 1 Unive rs mononitrate 4-10 tablet by ity of 60 mg 24 hr 16:36: mouth in [place] tablet 33 the Medical morning. Branch donepeziL 5 2023-0 Yes 5mg Take 1 Univ ers mg tablet 4-10 tablet by ity o f 16:36: mouth at [place] [address] bedtime. Medical Donepezil Branch hcl atorvastati 3-0 Yes 40mg Take 1 Univ ers n 40 mg 4-10 tablet by ity of tablet 16:36: mouth [place] every Medical evening. Branch memantine 5 3-0 Yes 5mg Take 1 Univ ers mg tablet 4-10 tablet by ity o f 16:36: mouth in [place] [address] the Medical morning. Branch memantine Hcl clopidogreL 3-0 Yes 75mg Take 1 Univ ers 75 mg 4-10 tablet by ity of tablet 16:36: mouth in [place] [address] the Medical morning. Branch foLIC acid 2023-0 Yes 1mg Take 1 Unive rs 1 mg tablet 4-10 tablet by ity of 16:36: mouth in [place] [address] the Medical morning. Branch furosemide 2023-0 Yes 20mg Take 1 Unive rs 20 mg 4-10 tablet by ity of tablet 16:36: mouth as [place] [address] needed. Medical Branch states only taking prn isosorbide 2023-0 Yes 60mg Take 1 Unive rs mononitrate 4-10 tablet by ity of 60 mg 24 hr 16:36: mouth in [place] tablet 33 the Medical morning. Branch donepeziL 5 3-0 Yes 5mg Take 1 Univ ers mg tablet 4-10 tablet by ity o f 16:36: mouth at [place] [address] bedtime. Medical Donepezil Branch hcl atorvastati 2023-0 Yes 40mg Take 1 Univ ers n 40 mg 4-10 tablet by ity of tablet 16:36: mouth [place] every Medical evening. Branch memantine 5 2023-0 Yes 5mg Take 1 Univ ers mg tablet 4-10 tablet by ity o f 16:36: mouth in [place] [address] the Medical morning. Branch memantine Hcl clopidogreL 2023-0 Yes 75mg Take 1 Univ ers 75 mg 4-10 tablet by ity of tablet 16:36: mouth in [place] [address] the Medical morning. Branch foLIC acid 2023-0 Yes 1mg Take 1 Unive rs 1 mg tablet 4-10 tablet by ity of 16:36: mouth in [place] [address] the Medical morning. Branch furosemide 2023-0 Yes 20mg Take 1 Unive rs 20 mg 4-10 tablet by ity of tablet 16:36: mouth as [place] [address] needed. Medical Branch states only taking prn isosorbide 2023-0 Yes 60mg Take 1 Unive rs mononitrate 4-10 tablet by ity of 60 mg 24 hr 16:36: mouth in [facility] tablet the Medical morning. Branch donepeziL 5 2023-0 Yes 5mg Take 1 Univ ers mg tablet 4-10 tablet by ity o f 16:36: mouth at [place] [address] bedtime. Medical Donepezil Branch hcl atorvastati 3-0 Yes 40mg Take 1 Univ ers n 40 mg 4-10 tablet by ity of tablet 16:36: mouth [place] [address] every Medical evening. Branch memantine 5 2023-0 Yes 5mg Take 1 Univ ers mg tablet 4-10 tablet by ity o f 16:36: mouth in [place] [address] the Medical morning. Branch memantine Hcl clopidogreL 2023-0 Yes 75mg Take 1 Univ ers 75 mg 4-10 tablet by ity of tablet 16:36: mouth in [place] [address] the Medical morning. Branch foLIC acid 2023-0 Yes 1mg Take 1 Unive rs 1 mg tablet 4-10 tablet by ity of 16:36: mouth in [place] [address] the Medical morning. Branch furosemide 2023-0 Yes 20mg Take 1 Unive rs 20 mg 4-10 tablet by ity of tablet 16:36: mouth as [place] [address] needed. Medical Branch states only taking prn isosorbide 2023-0 Yes 60mg Take 1 Unive rs mononitrate 4-10 tablet by ity of 60 mg 24 hr 16:36: mouth in [place] tablet the Medical morning. Branch donepeziL 5 2023-0 Yes 5mg Take 1 Univ ers mg tablet 4-10 tablet by ity o f 16:36: mouth at [place] [address] bedtime. Medical Donepezil Branch hcl atorvastati 2023-0 Yes 40mg Take 1 Univ ers n 40 mg 4-10 tablet by ity of tablet 16:36: mouth [place] every Medical evening. Branch memantine 5 2023-0 Yes 5mg Take 1 Univ ers mg tablet 4-10 tablet by ity o f 16:36: mouth in [place] 33 the Medical morning. Branch memantine Hcl clopidogreL 2023-0 Yes 75mg Take 1 Univ ers 75 mg 4-10 tablet by ity of tablet 16:36: mouth in [place] the Medical morning. Branch foLIC acid 2023-0 Yes 1mg Take 1 Unive rs 1 mg tablet 4-10 tablet by ity of 16:36: mouth in [place] the Medical morning. Branch furosemide 2023-0 Yes 20mg Take 1 Unive rs 20 mg 4-10 tablet by ity of tablet 16:36: mouth as [place] [address] needed. Medical Branch states only taking prn isosorbide 2023-0 Yes 60mg Take 1 Unive rs mononitrate 4-10 tablet by ity of 60 mg 24 hr 16:36: mouth in [place] tablet 33 the Medical morning. Branch donepeziL 5 2023-0 Yes 5mg Take 1 Univ ers mg tablet 4-10 tablet by ity o f 16:36: mouth at [place] [address] bedtime. Medical Donepezil Branch hcl atorvastati 3-0 Yes 40mg Take 1 Univ ers n 40 mg 4-10 tablet by ity of tablet 16:36: mouth [place] every Medical evening. Branch memantine 5 2023-0 Yes 5mg Take 1 Univ ers mg tablet 4-10 tablet by ity o f 16:36: mouth in [place] the Medical morning. Branch memantine Hcl clopidogreL 2023-0 Yes 75mg Take 1 Univ ers 75 mg 4-10 tablet by ity of tablet 16:36: mouth in [place] the Medical morning. Branch foLIC acid 2023-0 Yes 1mg Take 1 Unive rs 1 mg tablet 4-10 tablet by ity of 16:36: mouth in [place] 33 the Medical morning. Branch furosemide 2023-0 Yes 20mg Take 1 Unive rs 20 mg 4-10 tablet by ity of tablet 16:36: mouth as [place] [address] needed. Medical Branch states only taking prn isosorbide 2023-0 Yes 60mg Take 1 Unive rs mononitrate 4-10 tablet by ity of 60 mg 24 hr 16:36: mouth in [place] tablet 33 the Medical morning. Branch donepeziL 5 3-0 Yes 5mg Take 1 Univ ers mg tablet 4-10 tablet by ity o f 16:36: mouth at [place] [address] bedtime. Medical Donepezil Branch hcl atorvastati 3-0 Yes 40mg Take 1 Univ ers n 40 mg 4-10 tablet by ity of tablet 16:36: mouth [place] every Medical evening. Branch memantine 5 2023-0 Yes 5mg Take 1 Univ ers mg tablet 4-10 tablet by ity o f 16:36: mouth in [place] [address] the Medical morning. Branch memantine Hcl clopidogreL 2023-0 Yes 75mg Take 1 Univ ers 75 mg 4-10 tablet by ity of tablet 16:36: mouth in [place] the Medical morning. Branch foLIC acid 3-0 Yes 1mg Take 1 Unive rs 1 mg tablet 4-10 tablet by ity of 16:36: mouth in [place] [address] the Medical morning. Branch furosemide 2023-0 Yes 20mg Take 1 Unive rs 20 mg 4-10 tablet by ity of tablet 16:36: mouth as [place] [address] needed. Medical Branch states only taking prn isosorbide 2023-0 Yes 60mg Take 1 Unive rs mononitrate 4-10 tablet by ity of 60 mg 24 hr 16:36: mouth in [place] tablet 33 the Medical morning. Branch donepeziL 5 3-0 Yes 5mg Take 1 Univ ers mg tablet 4-10 tablet by ity o f 16:36: mouth at [place] [address] bedtime. Medical Donepezil Branch hcl atorvastati 2023-0 Yes 40mg Take 1 Univ ers n 40 mg 4-10 tablet by ity of tablet 16:36: mouth [place] every Medical evening. Branch memantine 5 2023-0 Yes 5mg Take 1 Univ ers mg tablet 4-10 tablet by ity o f 16:36: mouth in [place] [address] the Medical morning. Branch memantine Hcl clopidogreL 2023-0 Yes 75mg Take 1 Univ ers 75 mg 4-10 tablet by ity of tablet 16:36: mouth in [place] [address] the Medical morning. Branch foLIC acid 2023-0 Yes 1mg Take 1 Unive rs 1 mg tablet 4-10 tablet by ity of 16:36: mouth in [place] the Medical morning. Branch furosemide 2023-0 Yes 20mg Take 1 Unive rs 20 mg 4-10 tablet by ity of tablet 16:36: mouth as [place] needed. Medical Branch states only taking prn isosorbide 2023-0 Yes 60mg Take 1 Unive rs mononitrate 4-10 tablet by ity of 60 mg 24 hr 16:36: mouth in [place] tablet 33 the Medical morning. Branch donepeziL 5 2023-0 Yes 5mg Take 1 Univ ers mg tablet 4-10 tablet by ity o f 16:36: mouth at [place] [address] bedtime. Medical Donepezil Branch hcl atorvastati 2023-0 Yes 40mg Take 1 Univ ers n 40 mg 4-10 tablet by ity of tablet 16:36: mouth [place] every Medical evening. Branch memantine 5 3-0 Yes 5mg Take 1 Univ ers mg tablet 4-10 tablet by ity o f 16:36: mouth in [place] [address] the Medical morning. Branch memantine Hcl clopidogreL 3-0 Yes 75mg Take 1 Univ ers 75 mg 4-10 tablet by ity of tablet 16:36: mouth in [place] [address] the Medical morning. Branch foLIC acid 2023-0 Yes 1mg Take 1 [facility] rs 1 mg tablet 4-10 tablet by ity of 16:36: mouth in [place] the Medical morning. Branch furosemide 2023-0 Yes 20mg Take 1 [facility] rs 20 mg 4-10 tablet by ity of tablet 16:36: mouth as [place] [address] needed. Medical Branch states only taking prn isosorbide 2023-0 Yes 60mg Take 1 [facility] rs mononitrate 4-10 tablet by ity of 60 mg 24 hr 16:36: mouth in [place] tablet 33 the Medical morning. Branch donepeziL 5 2023-0 Yes 5mg Take 1 Univ ers mg tablet 4-10 tablet by ity o f 16:36: mouth at [place] bedtime. Medical Donepezil Branch hcl atorvastati 2023-0 Yes 40mg Take 1 [facility] ers n 40 mg 4-10 tablet by ity of tablet 16:36: mouth [place] 33 every Medical evening. Branch memantine 5 2023-0 Yes 5mg Take 1 Univ ers mg tablet 4-10 tablet by ity o f 16:36: mouth in [place] [address] the Medical morning. Branch memantine Hcl clopidogreL 2023-0 Yes 75mg Take 1 Univ ers 75 mg 4-10 tablet by ity of tablet 16:36: mouth in [place] [address] the Medical morning. Branch foLIC acid 2023-0 Yes 1mg Take 1 [facility] rs 1 mg tablet 4-10 tablet by ity of 16:36: mouth in [place] [address] the Medical morning. Branch furosemide 2023-0 Yes 20mg Take 1 [facility] rs 20 mg 4-10 tablet by ity of tablet 16:36: mouth as [place] [address] needed. Medical Branch states only taking prn isosorbide 2023-0 Yes 60mg Take 1 [facility] rs mononitrate 4-10 tablet by ity of 60 mg 24 hr 16:36: mouth [place] tablet the Medical morning. Branch donepeziL 5 2023-0 Yes 5mg Take 1 [facility] ers mg tablet 4-10 tablet by ity o f 16:36: mouth at [place] [address] bedtime. Medical Donepezil Branch hcl atorvastati 3-0 Yes 40mg Take 1 [facility] ers n 40 mg 4-10 tablet by ity of tablet 16:36: mouth [place] every Medical evening. Branch memantine 5 3-0 Yes 5mg Take 1 [facility] ers mg tablet 4-10 tablet by ity o f 16:36: mouth in [place] [address] the Medical morning. Branch memantine Hcl clopidogreL 2023-0 Yes 75mg Take 1 [facility] ers 75 mg 4-10 tablet by ity of tablet 16:36: mouth in [place] [address] the Medical morning. Branch foLIC acid 2023-0 Yes 1mg Take 1 [facility] rs 1 mg tablet 4-10 tablet by ity of 16:36: mouth in [place] [address] the Medical morning. Branch furosemide 2023-0 Yes 20mg Take 1 [facility] rs 20 mg 4-10 tablet by ity of tablet 16:36: mouth as [place] [address] needed. Medical Branch states only taking prn isosorbide 2023-0 Yes 60mg Take 1 [facility] rs mononitrate 4-10 tablet by ity of 60 mg 24 hr 16:36: mouth in [place] tablet 33 the Medical morning. Branch donepeziL 5 2023-0 Yes 5mg Take 1 [facility] ers mg tablet 4-10 tablet by ity o f 16:36: mouth at [place] 33 bedtime. Medical Donepezil Branch hcl tamsulosin 2023-0 2023- No [id number] .4mg Take 1 [facility] 0.4 mg 24 3-24 04-24 capsule by ity of hr capsule 00:00: 04:59 mouth in [place] 00 :00 the Medical morning Branch for 30 days. tamsulosin 2023-0 2023- No [id number] .4mg Take 1 [facility] 0.4 mg 24 3-24 04-24 capsule by ity of hr capsule 00:00: 04:59 mouth in [place] 00 :00 the Medical morning Branch for 30 days. tamsulosin 2023-0 2023- No [id number] .4mg Take 1 [facility] 0.4 mg 24 3-24 04-24 capsule by ity of hr capsule 00:00: 04:59 mouth in [place] 00 :00 the Medical morning Branch for 30 days. tamsulosin 2023-0 3- No [id number] .4mg Take 1 [facility] 0.4 mg 24 3-24 04-24 capsule by ity of hr capsule 00:00: 04:59 mouth in [place] 00 :00 the Medical morning Branch for 30 days. atorvastati 3-0 Yes 40mg Take 1 [facility] ers n 40 mg 3-23 tablet by ity of tablet 16:37: mouth [place] 06 every Medical evening. Branch memantine 5 3-0 Yes 5mg Take 1 [facility] ers mg tablet 3-23 tablet by ity o f 16:37: mouth in [place] [address] the Medical morning. Branch memantine Hcl clopidogreL 3-0 Yes 75mg Take 1 [facility] ers 75 mg 3-23 tablet by ity of tablet 16:37: mouth in [place] 06 the Medical morning. Branch foLIC acid 3-0 Yes 1mg Take 1 [facility] rs 1 mg tablet 3-23 tablet by ity of 16:37: mouth in [place] 06 the Medical morning. Branch furosemide 2023-0 Yes 20mg Take 1 [facility] rs 20 mg 3-23 tablet by ity of tablet 16:37: mouth as [place] [address] needed. Medical Branch states only taking prn isosorbide 2023-0 Yes 60mg Take 1 [facility] rs mononitrate 3-23 tablet by ity of 60 mg 24 hr 16:37: mouth in [place] tablet 06 the Medical morning. Branch donepeziL 5 3-0 Yes 5mg Take 1 [facility] ers mg tablet 3-23 tablet by ity o f 16:37: mouth at [place] 06 bedtime. Medical Donepezil Branch hcl atorvastati 3-0 Yes 40mg Take 1 [facility] ers n 40 mg 3-23 tablet by ity of tablet 16:37: mouth [place] 06 every Medical evening. Branch memantine 5 3-0 Yes 5mg Take 1 [facility] ers mg tablet 3-23 tablet by ity o f 16:37: mouth in [place] 06 the Medical morning. Branch memantine Hcl clopidogreL 3-0 Yes 75mg Take 1 Univ ers 75 mg 3-23 tablet by ity of tablet 16:37: mouth in [place] 06 the Medical morning. Branch foLIC acid 3-0 Yes 1mg Take 1 [facility] rs 1 mg tablet 3-23 tablet by ity of 16:37: mouth in [place] 06 the Medical morning. Branch furosemide 3-0 Yes 20mg Take 1 [facility] rs 20 mg 3-23 tablet by ity of tablet 16:37: mouth as [place] [address] needed. Medical Branch states only taking prn isosorbide 3-0 Yes 60mg Take 1 [facility] rs mononitrate 3-23 tablet by ity of 60 mg 24 hr 16:37: mouth in [place] tablet 06 the Medical morning. Branch donepeziL 5 3-0 Yes 5mg Take 1 Univ ers mg tablet 3-23 tablet by ity o f 16:37: mouth at [place] [address] bedtime. Medical Donepezil Branch hcl fluconazole 3-0 3- No [id number] 100mg Take 1 [facility] 100 mg 3-23 -06 tablet by ity of tablet 00:00: 04:59 mouth [place] 00 :00 every 24 Medical (twenty-fo Branch ur) hours for 13 days. fluconazole 2023-0 2023- No [id number] 100mg Take 1 [facility] 100 mg 3-23 -06 tablet by ity of tablet 00:00: 04:59 mouth [place] 00 :00 every 24 Medical (twenty-fo Branch ur) hours for 13 days. levoFLOXaci 2023-0 2023- No [id number] 250mg Take 1 [facility] n 250 mg 3-23 - tablet by ity o f tablet 00:00: 04:59 mouth [place] 00 :00 every 24 Medical (- Branch ur) hours for 4 days. levoFLOXaci 2022- No [id number] 250mg Take 1 Univers n 250 mg 07-2128 tablet by ity o f tablet 00:00: 04:59 mouth [place] 00 :00 every 24 Medical (- Branch ur) hours for 4 days. fluconazole 2022- No 100mg 100 mg, U nivers (DIFLUCAN) 07-20 0404 Oral, Q24H it y of tablet 100 23:00: 22:59 ABX, 13 [place] mg 00 :00 doses, Medical First dose Branch on Mon07/20/22 at 1800, Last dose on Mon08/01/22 at 1800, DIMITRI
Re ason for Anti-Infec tive: Documented Infection< br>Documen missy Infection Site: Urine
D uration of Therapy: 14 days KCL 2022- No 20meq 20 mEq, Univers (KLOR-CON 07-20 Oral, ity of M20) tablet 16:15: 17:01 ONCE, 1 [place] 20 mEq 00 :00 dose, On Medical Mon Branch 07/20/22 at 1115, Routine sulfur 2022- No [id number] 5mL 5 mL, Unive rs hexafluorid 07-20 Intravenou i ty of e microsphr 15:45: 15:45 s, ONCE, 1 [place] (LUMASON) 00 :00 dose, On Medica l injection Mon Branch 07/20/22 at 1045, Routine
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 Restricted medication : DECLAN SOLO donepeziL Yes 5mg 5 mg, Univers (ARICEPT) 07-20 Oral, QHS, ity of tablet 5 mg 02:00: First dose [place] 00 on Mon07/19/22 at Branch 2100, Until Discontinu ed, Routine fluconazole 2022- No 200mg at 100 [facility] (DIFLUCAN) 07-2022 mL/hr, IV ity of Piggyback 00:00: 16:11 [place], [place] 200 mg 00 :30 Q24H ABX, Medical First dose Branch on Mon07/19/22 at 1900, Until Discontinu ed, DIMITRI
Do Not Refrigerat e.
atorvastati 2022-0 Yes 40mg 40 mg, Univ ers n (LIPITOR) 3- Oral, QPM, it y of tablet 40 22:00: First dose [place] mg 00 on [facility] 07/19/22 at Branch 1700, Until Discontinu ed, Routine tamsulosin 2022-0 Yes .4mg 0.4 mg, Univ ers (FLOMAX) 3- Oral, ity of capsule 0.4 14:15: DAILY, [place] mg 00 First dose Medical on [facility] 07/19/22 at 0915, Until Discontinu ed, Routine memantine 0 Yes 5mg 5 mg, Univers (NAMENDA) 07-19 Oral, ity of tablet 5 mg 14:00: DAILY, [place] 00 First dose Medical on [facility] 07/19/22 at 0900, Until Discontinu ed, Routine
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 Restricted medication : ROBINSON STEWART isosorbide 0 Yes 60mg 60 mg, Unive rs mononitrate 07-19 Oral, ity of (IMDUR) 24 14:00: DAILY, [place] hr tablet 00 First dose Medi maximo 60 mg on [facility] 07/19/22 at 0900, Until Discontinu ed, Routine foLIC acid 0 Yes 1mg 1 mg, Univer s (FOLATE) 07-19 Oral, ity of tablet 1 mg 14:00: DAILY, [place] 00 First dose Medical on [facility] 07/19/22 at 0900, Until Discontinu ed, Routine clopidogreL 2022-0 Yes 75mg 75 mg, Univ ers (PLAVIX) 75 07-19 Oral, ity of mg tablet 14:00: DAILY, [place] 75 mg 00 First dose Medical on [facility] 07/19/22 at 0900, Until Discontinu ed, Routine heparin 2022-0 Yes 5000U 5,000 Univers (porcine) 3- Units, ity of injection 13:00: [place]cut[place] 5,000 Units 00 us, Q12H, Med ical First dose Branch on 07/19/22 at 0800, Until Discontinu ed, Routine cefTRIAXone 2022-0 2023- No 1000mg 1,000 mg, Univers (ROCEPHIN) 07-19 IV ity of 1,000 mg in 10:15: 10:14 [place], [place] NaCl 0.9% 00 :00 Q24H ABX, Medic al (NS) 100 mL 5 doses, Bran ch MINI-BAG First dose on Mon07/19/22 at 0515, Last dose on Mon07/23/22 at 0515, Administer over 30 Minutes, 100 mL
Reas on for Anti-Infec tive: Empiric Therapy for Suspected Infection< br>Empiric Therapy Site: Urine
D uration of therapy: 5 days NaCl 0.9% 2022-0 Yes 1000mL at 100 Univ ers (NS) IV 3-21 mL/hr, IV ity of infusion 05:00: Infusion, [place] 1,000 mL 00 CONTINUOUS Medic al , Starting Branch on Mon07/19/22 at 0000, Until Discontinu ed, Routine ondansetron 2022-0 Yes 4mg 4 mg, Slow Univers (ZOFRAN 07-19 IV Push, ity of (PF)) 04:55: Q6HPRN, [place] injection 4 23 Starting Medi maximo mg on Mon Branch 07/18/22 at 2355, Until Discontinu ed, Routine, Nausea and Vomiting (N/V) acetaminoph 2022-0 Yes 650mg 650 mg, Un ellen en 07-19 Oral, ity of (TYLENOL) 04:54: Q6HPRN, [place] tablet 650 59 Starting Medic al mg on Mon07/18/22 at 2354, Until Discontinu ed, Routine, Pain (scale 1-3) NaCl 0.9% 2022-0 202- No 1000mL at 999 Uni vers (NS) bolus 07-19-21 mL/hr, ity of infusion 01:30: 06:01 1,000 mL, [place] 1,000 mL 00 :00 IV Medical Infusion, Branch ONCE, 1 dose, On Mon07/18/22 at 2030, STAT ondansetron 2022-0 202- No 4mg 4 mg, Slow Univers (ZOFRAN 07-19 IV Push, ity of (PF)) 00:30: 01:46 ONCE, 1 [place] injection 4 00 :00 dose, On Medi maximo mg [facility] 07/18/22 at 1930, DIMITRI iopamidol 2022- No [id number] 75mL 75 mL, U nivers (ISOVUE 07-12 Intravenou ity o f 370-500 mL) 06:15: 06:15 s, ONCE, 1 [place] injection 00 :00 dose, On Medica l 75 mL [facility] 07/12/22 at 0115, Routine cefTRIAXone 2022- No 1000mg 1,000 mg, Univers (ROCEPHIN) 07-12 IV ity of 1,000 mg in 05:45: 06:26 [place], [place] NaCl 0.9% 00 :00 ONCE, 1 Medical (NS) 100 mL dose, On Bran ch MINI-BAG [facility] 07/12/22 at 0045, Administer over 30 Minutes, 100 mL
Reas on for Anti-Infec tive: Documented Infection< br>Documen missy Infection Site: Urine<br&g t;Duration of Therapy: 7 days NaCl 0.9% No 1000mL at 999 Uni vers (NS) bolus 07-12 mL/hr, ity of infusion 05:45: 05:51 1,000 mL, [place] 1,000 mL 00 :00 IV Medical Infusion, Branch ONCE, 1 dose, On [facility] 07/12/22 at 0045, STAT ketorolac 2022- No 15mg 15 mg, Unive rs (TORADOL) 07-12 Slow IV ity of injection 04:45: 06:43 Push, [place] 15 mg 00 :00 ONCE, 1 Medical dose, On Branch [facility] 07/11/22 at 2345, DIMITRI ondansetron 2022- No 4mg 4 mg, Slow Univers (ZOFRAN 07-12 IV Push, ity of (PF)) 04:45: 04:54 ONCE, 1 [place] injection 4 00 :00 dose, On Medi maximo mg [facility] 07/11/22 at 2345, DIMITRI cefdinir 2022- No [id number] 300mg Take 1 U nivers 300 mg 3-14 03-23 capsule by ity of capsule 00:00: 00:00 mouth [place] 00 :00 every 12 Medical (twelve) Branch hours for 7 days. cefdinir 3-0 3- No [id number] 300mg Take 1 U nivers 300 mg 3-14 - capsule by ity of capsule 00:00: 04:59 mouth [place] 00 :00 every 12 Medical (twelve) Branch hours for 7 days. cefdinir 2023-0 2023- No [id number] 300mg Take 1 U nivers 300 mg 3-14 - capsule by ity of capsule 00:00: 04:59 mouth [place] 00 :00 every 12 Medical (twelve) Branch hours for 7 days. atorvastati 0 Yes 40mg Take 40 mg Univers n 40 mg 1-30 by mouth ity of tablet 14:57: every [place] evening. Medical Branch memantine 5 0 Yes 5mg Take 5 mg U nivers mg tablet 1-30 by mouth ity of 14:57: daily. [facility] Branch clopidogreL Yes 75mg Take 75 mg Univers 75 mg 1-30 by mouth ity of tablet 14:57: daily. Medical Branch foLIC acid 0 Yes 1mg Take 1 mg [place] 1 mg tablet 1-30 by mouth ity of 14:57: daily. Medical Branch furosemide 0 Yes 20mg Take 20 mg U nivers 20 mg 1-30 by mouth ity of tablet 14:57: as needed. [facility] Branch only taking prn isosorbide 0 Yes 60mg Take 60 mg U nivers mononitrate 1-30 by mouth ity of 60 mg 24 hr 14:57: [place]. [place] tablet Medical Branch donepeziL 5 0 Yes 5mg Take 5 mg U nivers mg tablet 1-30 by mouth ity of 14:57: at [place] [address] bedtime. Medical Donepezil Branch hcl atorvastati 0 Yes 40mg Take 40 mg Univers n 40 mg 1-30 by mouth ity of tablet 14:57: every evening. Medical Branch memantine 5 2022-0 Yes 5mg Take 5 mg U nivers mg tablet 1-30 by mouth ity of 14:57: daily. memantine Medical [facility] Branch clopidogreL 2022-0 Yes 75mg Take 75 mg Univers 75 mg 1-30 by mouth ity of tablet 14:57: daily. [place] Medical Branch foLIC acid 2022-0 Yes 1mg Take 1 mg [place] 1 mg tablet 1-30 by mouth ity of 14:57: daily. [place] Medical Branch furosemide 2022-0 Yes 20mg Take 20 mg U nivers 20 mg 1-30 by mouth ity of tablet 14:57: as needed. [place] [facility] Branch only taking prn isosorbide 2022-0 Yes 60mg Take 60 mg U nivers mononitrate 1-30 by mouth ity of 60 mg 24 hr 14:57: daily. [place] tablet Medical Branch donepeziL 5 0 Yes 5mg Take 5 mg U nivers mg tablet 1-30 by mouth ity of 14:57: at [place] bedtime. Medical Donepezil Branch hcl atorvastati 0 Yes 40mg Take 40 mg Univers n 40 mg 1-30 by mouth ity of tablet 14:57: every evening. Medical Branch memantine 5 2022-0 Yes 5mg Take 5 mg U nivers mg tablet 1-30 by mouth ity of 14:57: daily. [place] memantine Medical Hcl Branch clopidogreL 2022-0 Yes 75mg Take 75 mg Univers 75 mg 1-30 by mouth ity of tablet 14:57: daily. [place] [address] Medical Branch foLIC acid 2022-0 Yes 1mg Take 1 mg [place] 1 mg tablet 1-30 by mouth ity of 14:57: daily. [place] Medical Branch furosemide 2022-0 Yes 20mg Take 20 mg U nivers 20 mg 1-30 by mouth ity of tablet 14:57: as needed. [place] [facility] only taking prn isosorbide 2022-0 Yes 60mg Take 60 mg U nivers mononitrate 1-30 by mouth ity of 60 mg 24 hr 14:57: daily. [place] tablet Medical Branch donepeziL 5 0 Yes 5mg Take 5 mg U nivers mg tablet 1-30 by mouth ity of 14:57: at [place] [address] bedtime. Medical Donepezil Branch hcl atorvastati 2022-0 Yes 40mg Take 40 mg Univers n 40 mg 1-30 by mouth ity of tablet 14:57: every evening. Medical Branch memantine 5 2022-0 Yes 5mg Take 5 mg U nivers mg tablet 1-30 by mouth ity of 14:57: daily. memantine Medical Hcl Branch clopidogreL 2022-0 Yes 75mg Take 75 mg Univers 75 mg 1-30 by mouth ity of tablet 14:57: daily. Medical Branch foLIC acid 2022-0 Yes 1mg Take 1 mg [place] 1 mg tablet 1-30 by mouth ity of 14:57: daily. Medical Branch furosemide 2022-0 Yes 20mg Take 20 mg U nivers 20 mg 1-30 by mouth ity of tablet 14:57: as needed. [facility] Branch only taking prn isosorbide 2022-0 Yes 60mg Take 60 mg U nivers mononitrate 1-30 by mouth ity of 60 mg 24 hr 14:57: daily. [place] tablet Medical Branch donepeziL 5 2022-0 Yes 5mg Take 5 mg U nivers mg tablet 1-30 by mouth ity of 14:57: at [place] bedtime. Medical Donepezil Branch hcl atorvastati 0 Yes 40mg Take 40 mg Univers n 40 mg 1-30 by mouth ity of tablet 14:57: every evening. Medical Branch memantine 5 2022-0 Yes 5mg Take 5 mg U nivers mg tablet 1-30 by mouth ity of 14:57: daily. memantine Medical Hcl Branch clopidogreL 2022-0 Yes 75mg Take 75 mg Univers 75 mg 1-30 by mouth ity of tablet 14:57: daily. Medical Branch foLIC acid 2022-0 Yes 1mg Take 1 mg [place] 1 mg tablet 1-30 by mouth ity of 14:57: daily. [place] Medical Branch furosemide 2022-0 Yes 20mg Take 20 mg U nivers 20 mg 1-30 by mouth ity of tablet 14:57: as needed. [facility] Branch only taking prn isosorbide 2022-0 Yes 60mg Take 60 mg U nivers mononitrate 1-30 by mouth ity of 60 mg 24 hr 14:57: daily. [place] tablet Medical Branch donepeziL 5 2022-0 Yes 5mg Take 5 mg U nivers mg tablet 1-30 by mouth ity of 14:57: at [place] bedtime. Medical Donepezil Branch hcl atorvastati 2022-0 Yes 40mg Take 40 mg Univers n 40 mg 1-30 by mouth ity of tablet 14:57: every evening. Medical Branch memantine 5 2022-0 Yes 5mg Take 5 mg U nivers mg tablet 1-30 by mouth ity of 14:57: daily. memantine Medical [facility] Branch clopidogreL 2022-0 Yes 75mg Take 75 mg Univers 75 mg 1-30 by mouth ity of tablet 14:57: daily. Medical Branch foLIC acid 2022-0 Yes 1mg Take 1 mg [place] 1 mg tablet 1-30 by mouth ity of 14:57: daily. Medical Branch furosemide 0 Yes 20mg Take 20 mg U nivers 20 mg 1-30 by mouth ity of tablet 14:57: as needed. [facility] only taking prn isosorbide 2022-0 Yes 60mg Take 60 mg U nivers mononitrate 1-30 by mouth ity of 60 mg 24 hr 14:57: daily. [place] tablet Medical Branch donepeziL 5 0 Yes 5mg Take 5 mg U nivers mg tablet 1-30 by mouth ity of 14:57: at [place] bedtime. Medical Donepezil Branch hcl atorvastati 2022-0 Yes 40mg Take 40 mg Univers n 40 mg 1-30 by mouth ity of tablet 14:57: every evening. Medical Branch memantine 5 0 Yes 5mg Take 5 mg U nivers mg tablet 1-30 by mouth ity of 14:57: daily. memantine Medical [facility] Branch clopidogreL 2022-0 Yes 75mg Take 75 mg Univers 75 mg 1-30 by mouth ity of tablet 14:57: daily. Medical Branch foLIC acid 2022-0 Yes 1mg Take 1 mg [place] 1 mg tablet 1-30 by mouth ity of 14:57: daily. Medical Branch furosemide 2022-0 Yes 20mg Take 20 mg U nivers 20 mg 1-30 by mouth ity of tablet 14:57: as needed. [facility] Branch only taking prn isosorbide 2022-0 Yes 60mg Take 60 mg U nivers mononitrate 1-30 by mouth ity of 60 mg 24 hr 14:57: daily. [place] tablet Medical Branch donepeziL 5 0 Yes 5mg Take 5 mg U nivers mg tablet 1-30 by mouth ity of 14:57: at bedtime. Medical Donepezil Branch hcl atorvastati 0 Yes 40mg Take 40 mg Univers n 40 mg 1-30 by mouth ity of tablet 14:57: every evening. Medical Branch memantine 5 0 Yes 5mg Take 5 mg U nivers mg tablet 1-30 by mouth ity of 14:57: daily. [facility] Branch clopidogreL 0 Yes 75mg Take 75 mg Univers 75 mg 1-30 by mouth ity of tablet 14:57: daily. Medical Branch foLIC acid 0 Yes 1mg Take 1 mg [place] 1 mg tablet 1-30 by mouth ity of 14:57: daily. Medical Branch furosemide 2022-0 Yes 20mg Take 20 mg U nivers 20 mg 1-30 by mouth ity of tablet 14:57: as needed. [facility] Branch only taking prn isosorbide 2022-0 Yes 60mg Take 60 mg U nivers mononitrate 1-30 by mouth ity of 60 mg 24 hr 14:57: daily. [place] tablet Medical Branch donepeziL 5 0 Yes 5mg Take 5 mg U nivers mg tablet 1-30 by mouth ity of 14:57: at bedtime. Medical Donepezil Branch hcl atorvastati 0 Yes 40mg Take 40 mg Univers n 40 mg 1-30 by mouth ity of tablet 14:57: every evening. Medical Branch memantine 5 0 Yes 5mg Take 5 mg U nivers mg tablet 1-30 by mouth ity of 14:57: daily. [facility] Branch clopidogreL 0 Yes 75mg Take 75 mg Univers 75 mg 1-30 by mouth ity of tablet 14:57: daily. Medical Branch foLIC acid 2022-0 Yes 1mg Take 1 mg [place] 1 mg tablet 1-30 by mouth ity of 14:57: daily. [place] Medical Branch furosemide 2022-0 Yes 20mg Take 20 mg U nivers 20 mg 1-30 by mouth ity of tablet 14:57: as needed. [place] [facility] only taking prn isosorbide 2022-0 Yes 60mg Take 60 mg U nivers mononitrate 1-30 by mouth ity of 60 mg 24 hr 14:57: daily. [place] tablet Medical Branch donepeziL 5 2022-0 Yes 5mg Take 5 mg U nivers mg tablet 1-30 by mouth ity of 14:57: at bedtime. Medical Donepezil Branch hcl atorvastati 2022-0 Yes 40mg Take 40 mg Univers n 40 mg 1-30 by mouth ity of tablet 14:57: every evening. Medical Branch memantine 5 2022-0 Yes 5mg Take 5 mg U nivers mg tablet 1-30 by mouth ity of 14:57: daily. [place] [facility] Branch clopidogreL 2022-0 Yes 75mg Take 75 mg Univers 75 mg 1-30 by mouth ity of tablet 14:57: daily. [place] Medical Branch foLIC acid 2022-0 Yes 1mg Take 1 mg [place] 1 mg tablet 1-30 by mouth ity of 14:57: daily. [place] Medical Branch furosemide 2022-0 Yes 20mg Take 20 mg U nivers 20 mg 1-30 by mouth ity of tablet 14:57: as needed. [place] [facility] only taking prn isosorbide 3-0 Yes 60mg Take 60 mg U nivers mononitrate 1-30 by mouth ity of 60 mg 24 hr 14:57: daily. [place] tablet Medical Branch donepeziL 5 2022-0 Yes 5mg Take 5 mg U nivers mg tablet 1-30 by mouth ity of 14:57: at bedtime. Medical Donepezil Branch hcl atorvastati 2022-0 Yes 40mg Take 40 mg Univers n 40 mg 1-30 by mouth ity of tablet 14:57: every evening. Medical Branch memantine 5 2022-0 Yes 5mg Take 5 mg U nivers mg tablet 1-30 by mouth ity of 14:57: daily. memantine Medical [facility] Branch clopidogreL 2022-0 Yes 75mg Take 75 mg Univers 75 mg 1-30 by mouth ity of tablet 14:57: daily. [place] Medical Branch foLIC acid 2022-0 Yes 1mg Take 1 mg [place] 1 mg tablet 1-30 by mouth ity of 14:57: daily. [place] Medical Branch furosemide 2022-0 Yes 20mg Take 20 mg U nivers 20 mg 1-30 by mouth ity of tablet 14:57: as needed. [place] [facility] only taking prn isosorbide 2022-0 Yes 60mg Take 60 mg U nivers mononitrate 1-30 by mouth ity of 60 mg 24 hr 14:57: daily. [place] tablet Medical Branch donepeziL 5 0 Yes 5mg Take 5 mg U nivers mg tablet 1-30 by mouth ity of 14:57: at [place] bedtime. Medical Donepezil Branch hcl atorvastati 0 Yes 40mg Take 40 mg Univers n 40 mg 1-30 by mouth ity of tablet 14:57: every evening. Medical Branch memantine 5 2022-0 Yes 5mg Take 5 mg U nivers mg tablet 1-30 by mouth ity of 14:57: daily. [place] memantine Medical [facility] Branch clopidogreL 2022-0 Yes 75mg Take 75 mg Univers 75 mg 1-30 by mouth ity of tablet 14:57: daily. [address] Branch foLIC acid 2022-0 Yes 1mg Take 1 mg [place] 1 mg tablet 1-30 by mouth ity of 14:57: daily. [place] Medical Branch furosemide 2022-0 Yes 20mg Take 20 mg U nivers 20 mg 1-30 by mouth ity of tablet 14:57: as needed. [place] [facility] only taking prn isosorbide 2022-0 Yes 60mg Take 60 mg U nivers mononitrate 1-30 by mouth ity of 60 mg 24 hr 14:57: daily. [place] tablet Medical [place] donepeziL 5 0 Yes 5mg Take 5 mg U nivers mg tablet 1-30 by mouth ity of 14:57: at [place] [address] bedtime. Medical Donepezil Branch hcl atorvastati 2022-0 Yes 40mg Take 40 mg Univers n 40 mg 1-30 by mouth ity of tablet 14:57: every evening. Medical Branch memantine 5 0 Yes 5mg Take 5 mg U nivers mg tablet 1-30 by mouth ity of 14:57: daily. memantine Medical Hcl Branch clopidogreL 2022-0 Yes 75mg Take 75 mg Univers 75 mg 1-30 by mouth ity of tablet 14:57: daily. [place] Medical Branch foLIC acid 2022-0 Yes 1mg Take 1 mg [place] 1 mg tablet 1-30 by mouth ity of 14:57: daily. [place] Medical Branch furosemide 0 Yes 20mg Take 20 mg U nivers 20 mg 1-30 by mouth ity of tablet 14:57: as needed. [place] [facility] Branch only taking prn isosorbide 2022-0 Yes 60mg Take 60 mg U nivers mononitrate 1-30 by mouth ity of 60 mg 24 hr 14:57: [place] donepeziL 5 0 Yes 5mg Take 5 mg U nivers mg tablet 1-30 by mouth ity of 14:57: at [place] bedtime. Medical Donepezil Branch hcl atorvastati 0 Yes 40mg Take 40 mg Univers n 40 mg 1-30 by mouth ity of tablet 14:57: every evening. Medical Branch memantine 5 0 Yes 5mg Take 5 mg U nivers mg tablet 1-30 by mouth ity of 14:57: daily. [facility] Medical Hcl Branch clopidogreL 0 Yes 75mg Take 75 mg Univers 75 mg 1-30 by mouth ity of tablet 14:57: daily. [place] Medical Branch foLIC acid 2022-0 Yes 1mg Take 1 mg Un [place]en 1 mg tablet 1-30 by mouth ity of 14:57: daily. [place] Medical Branch furosemide 2022-0 Yes 20mg Take 20 mg U nivers 20 mg 1-30 by mouth ity of tablet 14:57: as needed. [place] [address] [facility] Branch only taking prn isosorbide 2022-0 Yes 60mg Take 60 mg U nivers mononitrate 1-30 by mouth ity of 60 mg 24 hr 14:57: [place] donepeziL 5 2023-0 Yes 5mg Take 5 mg U nivers mg tablet 1-30 by mouth ity of 14:57: at [place] 01 bedtime. Medical Donepezil Branch hcl cefTRIAXone 2022- No 1000mg 1,000 mg, Univers (ROCEPHIN) 05-14 IV ity of 1,000 mg in 00:00: 00:50 [place], [place] NaCl 0.9% 00 :00 ONCE, 1 Medical () 50 mL dose, On Bran h MINI-BAG Mon05/13/22 at 1800, Administer over 30 Minutes, 50 mL
Reas on for Anti-Infec tive: Documented Infection< br>Documen misys Infection Site: Urine<br&g t;Duration of Therapy: 7 days cefdinir 2022- No [id number] 300mg Take 1 Univers 300 mg 05-13 capsule by ity of capsule 00:00: 05:59 mouth [place] 00 :00 every 12 Medical ([facility]) Branch hours for 7 days. cefdinir 2022- No [id number] 300mg Take 1 Univers 300 mg 05-13 capsule by ity of capsule 00:00: 05:59 mouth [place] 00 :00 every 12 Medical (twelve) Branch hours for 7 days. cefdinir 2022- No [id number] 300mg Take 1 Univers 300 mg 05-13 capsule by ity of capsule 00:00: 05:59 mouth [place] 00 :00 every 12 Medical (twelve) Branch hours for 7 days. pantoprazol 2021-05- No [id number] 40mg Take 20 mL Univers e 2 mg/mL 06-06 through ity of oral 00:00: 05:59 enteral [place] suspension 00 :00 tube in Medica l the Branch morning for 30 days. docusate 50 2021-05- No [id number] 100mg Take 10 mL Univers mg/5 mL 06-06 through ity of solution 00:00: 05:59 enteral [place] 00 :00 tube in Medical the Branch morning for 30 days. pantoprazol 2021-05- No [id number] 40mg Take 20 mL Univers e 2 mg/mL 06-06 through ity of oral 00:00: 05:59 enteral [place] suspension 00 :00 tube in [facility] morning for 30 days. docusate 50 2021-05- No [id number] 100mg Take 10 mL Univers mg/5 mL 06-06 through ity of solution 00:00: 05:59 enteral [place] 00 :00 tube in [facility] morning for 30 days. pantoprazol 2021-05- No [id number] 40mg Take 20 mL Univers e 2 mg/mL 06-06 through ity of oral 00:00: 05:59 enteral [place] suspension 00 :00 tube in [facility] morning for 30 days. docusate 50 2021-05- No [id number] 100mg Take 10 mL Univers mg/5 mL 06-06 through ity of solution 00:00: 05:59 enteral [place] 00 :00 tube in [facility] morning for 30 days. pantoprazol 2021-05- No [id number] 40mg Take 20 mL Univers e 2 mg/mL 06-06 through ity of oral 00:00: 05:59 enteral [place] suspension 00 :00 tube in [facility] morning for 30 days. docusate 50 2021-05- No [id number] 100mg Take 10 mL Univers mg/5 mL 06-06 through ity of solution 00:00: 05:59 enteral [place] 00 :00 tube in [facility] morning for 30 days. foLIC acid 2021-05 Yes 1mg Take 1 mg Un [place] 1 mg tablet 2-05 by mouth ity of 17:39: daily. [address] furosemide 2021-05 Yes 20mg Take 20 mg U nivers 20 mg 2-05 by mouth ity of tablet 17:39: as needed. [address] Branch only taking prn isosorbide 2021-05 Yes 60mg Take 60 mg U nivers mononitrate 2-05 by mouth ity of 60 mg 24 hr 17:39: daily. [address] donepeziL 5 2021-05 Yes 5mg Take 5 mg U nivers mg tablet 2-05 by mouth ity of 17:39: at [place] [address] [facility] Donepezil Branch hcl atorvastati 2021-05 Yes 40mg Take 40 mg Univers n 40 mg 2-05 by mouth ity of tablet 17:39: every [place] [address] evening. Medical Branch memantine 5 2021-05 Yes 5mg Take 5 mg U nivers mg tablet 2-05 by mouth ity of 17:39: daily. [place] [address] memantine Medical Hcl Branch clopidogreL 2021-05 Yes 75mg Take 75 mg Univers 75 mg 2-05 by mouth ity of tablet 17:39: daily. [address] Branch foLIC acid 2021-05 Yes 1mg Take 1 mg [place] 1 mg tablet 2-05 by mouth ity of 17:39: daily. [place] [address] Medical Branch furosemide 2021-05 Yes 20mg Take 20 mg U nivers 20 mg 2-05 by mouth ity of tablet 17:39: as needed. [place] [address] [facility] Branch only taking prn isosorbide 2021-05 Yes 60mg Take 60 mg U nivers mononitrate 2-05 by mouth ity of 60 mg 24 hr 17:39: [place]. [place] donepeziL 5 2021-05 Yes 5mg Take 5 mg U nivers mg tablet 2-05 by mouth ity of 17:39: at [place] [address] bedtime. Medical Donepezil Branch hcl atorvastati 2021-05 Yes 40mg Take 40 mg Univers n 40 mg 2-05 by mouth ity of tablet 17:39: every [place] [address] evening. Medical Branch memantine 5 2021-05 Yes 5mg Take 5 mg U nivers mg tablet 2-05 by mouth ity of 17:39: daily. [place] [address] [facility] Branch clopidogreL 2021-05 Yes 75mg Take 75 mg Univers 75 mg 2-05 by mouth ity of tablet 17:39: daily. [place] [address] Medical Branch foLIC acid 2021-05 Yes 1mg Take 1 mg [place] 1 mg tablet 2-05 by mouth ity of 17:39: daily. [place] [address] Medical Branch furosemide 2021-05 Yes 20mg Take 20 mg U nivers 20 mg 2-05 by mouth ity of tablet 17:39: as needed. [address] Branch only taking prn isosorbide 2021-05 Yes 60mg Take 60 mg U nivers mononitrate 2-05 by mouth ity of 60 mg 24 hr 17:39: [place]. [place] donepeziL 5 2021-05 Yes 5mg Take 5 mg U nivers mg tablet 2-05 by mouth ity of 17:39: at [place] [address] bedtime. Medical Donepezil Branch hcl atorvastati 2021-05 Yes 40mg Take 40 mg Univers n 40 mg 2-05 by mouth ity of tablet 17:39: every [place] 48 evening. Medical Branch memantine 5 2021-05 Yes 5mg Take 5 mg U nivers mg tablet 2-05 by mouth ity of 17:39: daily. [address] Medical [facility] Branch clopidogreL 2021-05 Yes 75mg Take 75 mg Univers 75 mg 2-05 by mouth ity of tablet 17:39: daily. [address] Branch foLIC acid 2021-05 Yes 1mg Take 1 mg [place] 1 mg tablet 2-05 by mouth ity of 17:39: daily. [place] [address] Medical Branch furosemide 2021-05 Yes 20mg Take 20 mg U nivers 20 mg 2-05 by mouth ity of tablet 17:39: as needed. [place] [address] [facility] only taking prn isosorbide 2021-05 Yes 60mg Take 60 mg U nivers mononitrate 2-05 by mouth ity of 60 mg 24 hr 17:39: daily. [facility] [place] [address] Medical Branch donepeziL 5 2021-05 Yes 5mg Take 5 mg U nivers mg tablet 2-05 by mouth ity of 17:39: at [place] [address] bedtime. Medical Donepezil Branch hcl atorvastati 2021-05 Yes 40mg Take 40 mg Univers n 40 mg 2-05 by mouth ity of tablet 17:39: every [place] [address] evening. Medical Branch memantine 5 2021-05 Yes 5mg Take 5 mg U nivers mg tablet 2-05 by mouth ity of 17:39: daily. [address] Branch clopidogreL 2021-05 Yes 75mg Take 75 mg Univers 75 mg 2-05 by mouth ity of tablet 17:39: daily. [address] foLIC acid 2021-05 Yes 1mg Take 1 mg [place] 1 mg tablet 2-05 by mouth ity of 17:39: daily. [address] furosemide 2021-05 Yes 20mg Take 20 mg U nivers 20 mg 2-05 by mouth ity of tablet 17:39: as needed. [place] [address] [facility] [place] Branch only taking prn isosorbide 2021-05 Yes 60mg Take 60 mg U nivers mononitrate 2-05 by mouth ity of 60 mg 24 hr 17:39: [place]. [place] Branch donepeziL 5 2021-05 Yes 5mg Take 5 mg U nivers mg tablet 2-05 by mouth ity of 17:39: at [place] [address] bedtime. Medical Donepezil Branch hcl atorvastati 2021-05 Yes 40mg Take 40 mg Univers n 40 mg 2-05 by mouth ity of tablet 17:39: every [place] [address] evening. Medical Branch memantine 5 2021-05 Yes 5mg Take 5 mg U nivers mg tablet 2-05 by mouth ity of 17:39: daily. [address] Branch clopidogreL 2021-05 Yes 75mg Take 75 mg Univers 75 mg 2-05 by mouth ity of tablet 17:39: daily. [address] Branch foLIC acid 2021-05 Yes 1mg Take 1 mg [place] 1 mg tablet 2-05 by mouth ity of 17:39: daily. [place] [address] Medical Branch furosemide 2021-05 Yes 20mg Take 20 mg U nivers 20 mg 2-05 by mouth ity of tablet 17:39: as needed. [address] Branch only taking prn isosorbide 2021-05 Yes 60mg Take 60 mg U nivers mononitrate 2-05 by mouth ity of 60 mg 24 hr 17:39: [place]. [place] Branch donepeziL 5 2021-05 Yes 5mg Take 5 mg U nivers mg tablet 2-05 by mouth ity of 17:39: at [place] [address] bedtime. Medical Donepezil Branch hcl atorvastati 2021-05 Yes 40mg Take 40 mg Univers n 40 mg 2-05 by mouth ity of tablet 17:39: every [place] [address] evening. Medical Branch memantine 5 2021-05 Yes 5mg Take 5 mg U nivers mg tablet 2-05 by mouth ity of 17:39: daily. [address] Branch clopidogreL 2021-05 Yes 75mg Take 75 mg Univers 75 mg 2-05 by mouth ity of tablet 17:39: daily. [place] [address] Medical Branch foLIC acid 2021-05 Yes 1mg Take 1 mg [place] 1 mg tablet 2-05 by mouth ity of 17:39: daily. [place] [address] Medical Branch furosemide 2021-05 Yes 20mg Take 20 mg U nivers 20 mg 2-05 by mouth ity of tablet 17:39: as needed. [place] [address] [facility] Branch only taking prn isosorbide 2021-05 Yes 60mg Take 60 mg U nivers mononitrate 2-05 by mouth ity of 60 mg 24 hr 17:39: [place]. [place] Branch donepeziL 5 2021-05 Yes 5mg Take 5 mg U nivers mg tablet 2-05 by mouth ity of 17:39: at [place] [address] bedtime. Medical Donepezil Branch hcl atorvastati 2021-05 Yes 40mg Take 40 mg Univers n 40 mg 2-05 by mouth ity of tablet 17:39: every [place] [address] evening. Medical Branch memantine 5 2021-05 Yes 5mg Take 5 mg U nivers mg tablet 2-05 by mouth ity of 17:39: daily. [address] Medical [facility] Branch clopidogreL 2021-05 Yes 75mg Take 75 mg Univers 75 mg 2-05 by mouth ity of tablet 17:39: daily. [place] [address] Medical Branch foLIC acid 2021-05 Yes 1mg Take 1 mg [place] 1 mg tablet 2-05 by mouth ity of 17:39: daily. [place] [address] Medical Branch furosemide 2021-05 Yes 20mg Take 20 mg U nivers 20 mg 2-05 by mouth ity of tablet 17:39: as needed. [address] Branch only taking prn isosorbide 2021-05 Yes 60mg Take 60 mg U nivers mononitrate 2-05 by mouth ity of 60 mg 24 hr 17:39: [place]. [place] Branch donepeziL 5 2021-05 Yes 5mg Take 5 mg U nivers mg tablet 2-05 by mouth ity of 17:39: at [place] [address] bedtime. Medical Donepezil Branch hcl atorvastati 2021-05 Yes 40mg Take 40 mg Univers n 40 mg 2-05 by mouth ity of tablet 17:39: every [place] [address] evening. Medical Branch memantine 5 2021-05 Yes 5mg Take 5 mg U nivers mg tablet 2-05 by mouth ity of 17:39: daily. [place] [address] memantine [address] [facility] Branch clopidogreL 2021-05 Yes 75mg Take 75 mg Univers 75 mg 2-05 by mouth ity of tablet 17:39: daily. [address] Branch foLIC acid 2021-05 Yes 1mg Take 1 mg [place] 1 mg tablet 2-05 by mouth ity of 17:39: daily. [address] furosemide 2021-05 Yes 20mg Take 20 mg U nivers 20 mg 2-05 by mouth ity of tablet 17:39: as needed. [address] only taking prn isosorbide 2021-05 Yes 60mg Take 60 mg U nivers mononitrate 2-05 by mouth ity of 60 mg 24 hr 17:39: daily. [place] donepeziL 5 2021-05 Yes 5mg Take 5 mg U nivers mg tablet 2-05 by mouth ity of 17:39: at [place] [address] bedtime. Medical Donepezil Branch hcl atorvastati 2021-05 Yes 40mg Take 40 mg Univers n 40 mg 2-05 by mouth ity of tablet 17:39: every [place] [address] evening. Medical Branch memantine 5 2021-05 Yes 5mg Take 5 mg U nivers mg tablet 2-05 by mouth ity of 17:39: daily. [address] [facility] Branch clopidogreL 2021-05 Yes 75mg Take 75 mg Univers 75 mg 2-05 by mouth ity of tablet 17:39: daily. [address] foLIC acid 2021-05 Yes 1mg Take 1 mg Un [place] 1 mg tablet 2-05 by mouth ity of 17:39: daily. [place] [address] Medical [place] furosemide 2021-05 Yes 20mg Take 20 mg U nivers 20 mg 2-05 by mouth ity of tablet 17:39: as needed. [address] only taking prn isosorbide 2021-05 Yes 60mg Take 60 mg U nivers mononitrate 2-05 by mouth ity of 60 mg 24 hr 17:39: daily. [place] donepeziL 5 2021-05 Yes 5mg Take 5 mg U nivers mg tablet 2-05 by mouth ity of 17:39: at [place] [address] bedtime. Medical Donepezil Branch hcl atorvastati 2021-05 Yes 40mg Take 40 mg Univers n 40 mg 2-05 by mouth ity of tablet 17:39: every [place] [address] [facility] Branch memantine 5 2021-05 Yes 5mg Take 5 mg U nivers mg tablet 2-05 by mouth ity of 17:39: daily. [address] clopidogreL 2021-05 Yes 75mg Take 75 mg Univers 75 mg 2-05 by mouth ity of tablet 17:39: daily. [address] carbidopa-l 2021-05- No [id number] 1{tbl} Take 1 Univers evodopa 2-05 -05 tablet ity of 25-100 mg 00:00: 05:59 through [place] tablet 00 :00 enteral Medical tube in Branch the morning and 1 tablet at noon and 1 tablet in the evening. Do all this for 30 days. bisacodyL 2021-05- No [id number] 10mg Insert 1 Univers 10 mg 2-08 29-05 Suppositor ity of suppository 00:00: 05:59 y into [place] 00 :00 rectum at Medical bedtime as Branch needed for Constipati on for up to 30 days. carbidopa-l 2021-05- No [id number] 1{tbl} Take 1 Univers evodopa 2-05 -05 tablet ity of 25-100 mg 00:00: 05:59 through [place] tablet 00 :00 enteral Medical tube in [place] the morning and 1 tablet at noon and 1 tablet in the evening. Do all this for 30 days. bisacodyL 2021-05- No [id number] 10mg Insert 1 Univers 10 mg 2-08 29-05 Suppositor ity of suppository 00:00: 05:59 y into [place] 00 :00 rectum at Medical bedtime as Branch needed for Constipati on for up to 30 days. carbidopa-l 2021-05- No [id number] 1{tbl} Take 1 Univers evodopa 2-05 -05 tablet ity of 25-100 mg 00:00: 05:59 through [place] tablet 00 :00 enteral Medical tube in Branch the morning and 1 tablet at noon and 1 tablet in the evening. Do all this for 30 days. bisacodyL 2021-05- No [id number] 10mg Insert 1 Univers 10 mg 06-05 Suppositor ity of suppository 00:00: 05:59 y into [place] 00 :00 rectum at Medical bedtime as Branch needed for Constipati on for up to 30 days. carbidopa-l 2021-05- No [id number] 1{tbl} Take 1 Univers evodopa 06-05- tablet ity of 25-100 mg 00:00: 05:59 through [place] tablet 00 :00 enteral Medical tube in Branch the morning and 1 tablet at noon and 1 tablet in the evening. Do all this for 30 days. bisacodyL 2021-05- No [id number] 10mg Insert 1 Univers 10 mg 06-05 Suppositor ity of suppository 00:00: 05:59 y into [place] 00 :00 rectum at Medical bedtime as Branch needed for Constipati on for up to 30 days. HYDROcodone 2021-05- No [id number] 5mg Take 10 mL Univers -acetaminop 06-05-13 through ity of hen 7.5-325 00:00: 05:59 enteral [place] mg/15 mL 00 :00 tube every Medic al solution 4 (four) Branch hours as needed for Pain (scale 4-6) for up to 7 days. Indication s: acute pain HYDROcodone 2021-05 No [id number] 5mg Take 10 mL Univers -acetaminop 06-05-13 through ity of hen 7.5-325 00:00: 05:59 enteral [place] mg/15 mL 00 :00 tube every Medic al solution 4 (four) Branch hours as needed for Pain (scale 4-6) for up to 7 days. Indication s: acute pain cefTRIAXone 2021-05- No 1000mg 1,000 mg, Univers (ROCEPHIN) 05-29 IV ity of 1,000 mg in 12:00: 12:39 [place], [place] NaCl 0.9% 00 :00 Q24H ABX, Medic al (NS) 50 mL 1 dose, Branch MINI-BAG First dose (after last modificati on) on Mon03/29/22 at 0600, Administer over 30 Minutes, 50 mL
Reas on for Anti-Infec tive: Documented Infection< br>Docu mented Infection Site: Urine
D uration of Therapy: 7 days sulfur 2021-05- No [id number] 5mL 5 mL, Unive rs hexafluorid 05-28 Intravenou i ty of e microsphr 17:53: 17:53 s, ONCE, 1 [place] (LUMASON) 00 :00 dose, On Medica l injection 5 Mon Branch mL 03/28/22 at 1215, Routine
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 Restricted medication : JABIER ASHLEY pantoprazol 2021-05 Yes 40mg 40 mg, Univ ers e 05-28 Enteral, ity of (PROTONIX) 15:00: DAILY, [place] 2 mg/mL 00 First dose Medica l oral (after Branch suspension last 40 mg modificati on) on Mon03/28/22 at 0900, Until Discontinu ed, Routine labetaloL 2021-05 Yes 20mg 20 mg, Univer s (NORMODYNE) 05-28 Slow IV ity o f injection 14:22: [place], [place] 20 mg 55 Q4HPRN, Medical Starting Branch on Mon03/28/22 at 0822, Until Discontinu ed, Routine, SBP goal <160 mmHg hydralAZINE 2021-05 Yes 5mg 5 mg, Slow Univers (APRESOLINE 05-28 IV Push, ity of ) injection 14:22: Q4HPRN, [place] 5 mg 41 Starting Medical on Mon Branch 03/28/22 at 0822, Until Discontinu ed, Routine, SBP goal <16 0 mmHg sodium 2021-05 Yes 1{spray 1 [place], Univ ers chloride 05-26 } Nasal, ity of (OCEAN MIST 16:34: PRN, [place] NASAL) 0.65 43 Starting Medi maximo % nasal on [facility] Branch spray 1 03/26/22 [place] at 1034, Until Discontinu ed, Routine, nasal congestion nystatin 2021-05 Yes Topical, Unive rs (NYSTOP) 05-26 BID, First ity o f powder 14:00: dose on [place] [facility] Medical 03/26/22 Branch at 0800, Until Discontinu ed, Routine NaCl 0.9% 2021-05 Yes 1000mL at 42 Unive rs (NS) IV 1-25 mL/hr, IV ity of infusion 16:45: Infusion, [place] 1,000 mL 00 CONTINUOUS Medic al , Starting Branch on Mon03/25/22 at 1045, Until Discontinu ed, Routine niCARdipine 2021-05 No 2.5mg/h 2.5-15 Univers (CARDENE 05-25 mg/hr ity of I.V.) 40 mg 07:59: 14:23 (12.5-75 [place] in NaCL 200 41 :10 mL/hr), IV Me dical mL (RTU) Infusion, Branch infusion TITRATE, SBP <110, Starting on Mon03/25/22 at 0159
In itiate infusion at 2.5 mg/hr.&nbs p; Ti trate by 2.5 mg/hr every 5 minutes to 15 minutes as needed to achieve and maintain goal blood pressure. Maximum dose = 15 mg/hr. If goal not maintained at maximum allowed dose, contact prescriber .
hydralAZINE 2021-05 No 5mg 5 mg, Slow Univers (APRESOLINE 05-25 IV [place], ity of ) injection 06:18: 14:23 Q4HPRN, [place] 5 mg 00 :10 Starting Medical on Mon Branch 03/25/22 at 0018, Until Mon03/28/22 at 0823, Routine, SBP >110 labetaloL 2021-05 No 20mg 20 mg, Unive rs (NORMODYNE) 05-25 Slow IV ity of injection 06:18: 14:23 [place], [place] 20 mg 00 :10 Q4HPRN, Medical Starting Branch on Mon03/25/22 at 0018, Until Mon03/28/22 at 0823, Routine, SBP >110 sodium 2021-05 Yes 4mL 4 mL, Univers chloride 7% 05-24 Inhalation it y of (HYPER-NADEEN) 15:00: , DAILY, [place] nebulizer 00 First dose Medi maximo solution 4 on [place] Branch mL 03/24/22 at 0900, Until Discontinu ed, Routine cefTRIAXone 2021-05 No 1000mg 1,000 mg, Univers (ROCEPHIN) 05-24 IV ity of 1,000 mg in 12:15: 11:43 [facility] [place] NaCl 0.9% 00 :00 Q24H ABX, Medic al (NS) 50 mL 5 doses, Branc h MINI-BAG First dose (after last modificati on) on [place] 03/24/22 at 0615, Last dose on 03/28/22 at 0615, Administer over 30 Minutes, 50 mL
Reas on for Anti-Infec tive: Documented Infection< br>Documen missy Infection Site: Urine
D uration of Therapy: 7 days D5W IV 2021-05 No 1000mL at 100 Univer s infusion 05-23 11- mL/hr, IV ity o f 1,000 mL 20:45: 17:30 Infusion, [place] 00 :11 CONTINUOUS Medical , Starting Branch on Mon03/23/22 at 1445, Until Mon03/25/22 at 1130, Routine clopidogreL 2021-05 Yes 75mg 75 mg, Univ ers (PLAVIX) 75 05-23 Enteral, ity of mg tablet 16:15: DAILY, [place] 75 mg 00 First dose Medical on Mon Branch 03/23/22 at 1015, Until Discontinu ed, Routine pantoprazol 2021-05 No 40mg 40 mg, Uni vers e 05-23 Oral, ity of (PROTONIX) 15:00: 14:23 DAILY, [place] 2 mg/mL 00 :10 First dose Medica l oral on Mon Branch suspension 03/23/22 40 mg at 0900, Until Discontinu ed, Routine isosorbide 2021-05 Yes 30mg 30 mg, Unive rs dinitrate 05-23 Enteral, ity of (ISORDIL) 14:00: BID, First [place] tablet 30 00 dose Medical mg (after Branch last modificati on) on Mon03/23/22 at 0800, Until Discontinu ed, Routine KCL 20 2021-05 No 40meq 40 mEq, Univer s mEq/15 mL 05-23 Oral, ity of solution 40 10:45: 10:30 ONCE, 1 [place] mEq 00 :00 dose, On Medical Wed Branch 03/23/22 at 0445, Routine D5W IV 2021-05- No 1000mL at 60 Univers infusion 1-22 11-23 mL/hr, IV ity o f 1,000 mL 23:45: 20:38 Infusion, [place] 00 :40 CONTINUOUS Medical , Starting Branch on Mon03/22/22 at 1745, Until Mon03/23/22 at 1438, Routine atorvastati 2021-05 Yes 40mg 40 mg, Univ ers n (LIPITOR) 05-22 Enteral, ity of tablet 40 23:00: QPM, First [place] mg 00 dose Medical (after Branch last modificati on) on Mon03/22/22 at 1700, Until Discontinu ed, Routine atorvastati 2021-05 Yes 40mg 40 mg, Univ ers n (LIPITOR) 05-22 Enteral, ity of tablet 40 23:00: QPM, First [place] mg 00 dose Medical (after Branch last modificati on) on Mon03/22/22 at 1700, Until Discontinu ed, Routine acetaminoph 2021-05 Yes 325mg 325 mg, Un [place]en en 05-22 Enteral, ity of (TYLENOL) 19:08: Q4HPRN, [place] 160 mg/5 mL 12 Starting Medi maximo oral liquid on Mon 325 mg 03/22/22 at 1308, Until Discontinu ed, Routine, Pain (scale 1-3) HYDROcodone 2021-05 Yes 5mg 5 mg, Unive rs -acetaminop 05-22 Enteral, ity of hen (HYCET) 19:05: Q4HPRN, [place] 7.5-325 51 Starting Medical mg/15 mL on Mon solution 5 03/22/22 mg at 1305, Until Discontinu ed, Routine, Pain (scale 4-6) Memantine 2021-05 Yes 5mg 5 mg, Univers (NAMENDA) 2 05-22 Enteral, ity of mg/mL 15:00: DAILY, [place] solution 5 00 First dose Med ical mg on Mon03/22/22 at 0900, Until Discontinu ed, Routine foLIC acid 2021-05 Yes 1mg 1 mg, Univer s (FOLATE) 05-22 Enteral, ity of tablet 1 mg 15:00: DAILY, [place] 00 First dose Medical (after Branch last modificati on) on Mon03/22/22 at 0900, Until Discontinu ed, Routine docusate 2021-05 Yes 100mg 100 mg, Unive rs (COLACE) 50 05-22 Enteral, ity of mg/5 mL 15:00: DAILY, [place] solution 00 First dose Medic al 100 mg on 03/22/22 at 0900, Until Discontinu ed, Routine Memantine 2021-05 Yes 5mg 5 mg, Univers (NAMENDA) 2 05-22 Enteral, ity of mg/mL 15:00: DAILY, [place] solution 5 00 First dose Med ical mg on 03/22/22 at 0900, Until Discontinu ed, Routine foLIC acid 2021-05 Yes 1mg 1 mg, Univer s (FOLATE) 05-22 Enteral, ity of tablet 1 mg 15:00: DAILY, [place] 00 First dose Medical (after Branch last modificati on) on Mon03/22/22 at 0900, Until Discontinu ed, Routine docusate 2021-05 Yes 100mg 100 mg, Unive rs (COLACE) 50 05-22 Enteral, ity of mg/5 mL 15:00: DAILY, [place] solution 00 First dose Medic al 100 mg on [facility] 03/22/22 at 0900, Until Discontinu ed, Routine cefTRIAXone 2021-05 No 1000mg 1,000 mg, Univers (ROCEPHIN) 05-22 IV ity of 1,000 mg in 12:15: 06:34 [place], [place] NaCl 0.9% 00 :19 Q24H ABX, Medic al (NS) 50 mL 3 doses, Branc h MINI-BAG First dose on Mon03/22/22 at 0615, Last dose on Mon03/24/22 at 0615, Administer over 30 Minutes, 50 mL
Reas on for Anti-Infec tive: Documented Infection< br>Documen missy Infection Site: Urine
D uration of Therapy: 7 days piperacilli 2021-05 No 3.375g 3.375 g, Univers n-tazobacta 05-22 IV ity of m (ZOSYN) 10:15: 10:14 [place], [place] 3.375 g in 00 :00 Q12H ABX, Medi maximo NaCl 0.9% 10 doses, Branc h (NS) 50 mL First dose MINI-BAG on Mon03/22/22 at 0415, Last dose on Mon03/26/22 at 1615, Administer over 4 Hours, 50 mL
Reas on for Anti-Infec tive: Empiric Therapy for Suspected Infection< br>Empiric Therapy Site: Abdominal< br>Duratio n of therapy: 5 days piperacilli 2021-05 No 3.375g 3.375 g, Univers n-tazobacta 05-22 IV ity of m (ZOSYN) 10:15: 11:10 [place], [place] 3.375 g in 00 :04 Q12H ABX, Medi maximo NaCl 0.9% 10 doses, Branc h (NS) 50 mL First dose MINI-BAG on Mon03/22/22 at 0415, Last dose on Mon03/26/22 at 1615, Administer over 4 Hours, 50 mL
Reas on for Anti-Infec tive: Empiric Therapy for Suspected Infection< br>Empiric Therapy Site: Abdominal< br>Duratio n of therapy: 5 days potassium 2021-05- No 20meq 20 mEq, IV Univers chloride in 05-22 Piggyback, i ty of water (KCL) 10:00: 15:15 Q2H, 2 [place] 20 mEq/100 00 :00 doses, Medical mL RTU IVPB First dose Br anch 20 mEq on Mon03/22/22 at 0400, Last dose on Mon03/22/22 at 0600, 100 mL heparin 2021-05 Yes 5000U 5,000 Univers (porcine) - Units, ity of injection 04:00: [place]cut[place] 5,000 Units 00 us, Q8H, Medi maximo First dose Branch on Mon03/21/22 at 2200, Until Discontinu ed, Routine heparin 2021-05 Yes 5000U 5,000 Univers (porcine) -22 Units, ity of injection 04:00: [place]cut[place] 5,000 Units 00 us, Q8H, Medi maximo First dose Branch on Mon03/21/22 at 2200, Until Discontinu ed, Routine donepeziL 2021-05 Yes 5mg 5 mg, Univers (ARICEPT) 05-22 Enteral, ity of tablet 5 mg 03:00: QHS, [facility] 00 dose Medical (after Branch last modificati on) on Mon03/21/22 at 2100, Until Discontinu ed, Routine donepeziL 2021-05 Yes 5mg 5 mg, Univers (ARICEPT) 05-22 Enteral, ity of tablet 5 mg 03:00: QHS, 00 dose Medical (after Branch last modificati on) on Mon03/21/22 at 2100, Until Discontinu ed, Routine carbidopa-l 2021-05 Yes 1{tbl} 1 tablet, Univers evodopa 05-22 Enteral, ity of (SINEMET-25 02:00: TID, [facility] ) 00 dose Medical 25-100 mg (after Branch tablet 1 last tablet modificati on) on Mon03/21/22 at 2000, Until Discontinu ed, Routine carbidopa-l 2021-05 Yes 1{tbl} 1 tablet, Univers evodopa 05-22 Enteral, ity of (SINEMET-25 02:00: TID, [facility] ) 00 dose Medical 25-100 mg (after Branch tablet 1 last tablet modificati on) on Mon03/21/22 at 2000, Until Discontinu ed, Routine acetaminoph 2021-05 Yes 325mg 325 mg, [place]en en 05-22 Enteral, ity of (TYLENOL) 01:38: Q4HPR, [place] 160 mg/5 mL 14 Starting Medi maximo oral liquid on Mon 325 mg 03/21/22 at 1938, Until Discontinu ed, Routine, Pain (scale 4-6), Pain (scale 1-3) piperacilli 2021-05 No 3.375g 3.375 g, Univers n-tazobacta 05-21 IV ity of m (ZOSYN) 22:30: 00:32 Piggyback, [place] 3.375 g in 00 :32 ONCE, 1 Medica l NaCl 0.9% dose, On Branch (NS) 50 mL Mon MINI-BAG 03/21/22 at 1630, Administer over 30 Minutes, 50 mL
Reas on for Anti-Infec tive: Empiric Therapy for Suspected Infection< br>Empiric Therapy Site: Abdominal< br>Duratio n of therapy: 5 days NaCl 0.9% 2021-05 No 1000mL at 999 Uni vers (NS) IV 05-21 mL/hr, IV ity of infusion 22:30: 22:28 Infusion, [place] 1,000 mL 00 :00 ONCE, 1 Medical dose, On Branch Mon03/21/22 at 1630, Routine enoxaparin 2021-05 No 40mg 40 mg, Univ ers (LOVENOX) 05-21 Subcutaneo ity of injection 12:30: 21:37 us, Q24H, [place] 40 mg 00 :40 First dose Medical on Mon Branch 03/21/22 at 0630, Until Discontinu ed, Routine acetaminoph 2021-05- No 1000mg 1,000 mg, Univers en ADULT 05-21 IV ity of (OFIRMEV) 11:04: 11:03 Infusion, [place] injection 06 :06 at 400 Medical 1,000 mg mL/hr Branch Administer over 15 Minutes, Q8HPRN, Starting on Mon03/21/22 at 0504, Until Mon03/22/22 at 0503, Routine, Pain (scale 4-6), fever
I ndication: Non-periop erative Patient
Approved by: Per Policy (NPO Status) acetaminoph 2021-05 No 1000mg 1,000 mg, Univers en ADULT 05-21 IV ity of (OFIRMEV) 11:04: 11:03 Infusion, [place] injection 06 :06 at 400 Medical 1,000 mg mL/hr Branch Administer over 15 Minutes, Q8HPRN, Starting on Mon03/21/22 at 0504, Until Mon03/22/22 at 0503, Routine, Pain (scale 4-6), fever
I ndication: Non-periop erative Patient
Approved by: Per Policy (NPO Status) QUEtiapine 2021-05 No 25mg 25 mg, [facility] ers (SEROQUEL) 05-20 Oral, QHS, it y of tablet 25 07:15: 15:51 First dose [place] mg 00 :01 on [facility] 03/20/22 Branch at 0115, Until Discontinu ed, Routine carbidopa-l 2021-05- No 1{tbl} 1 tablet, Univers evodopa 05-19 Oral, TID, ity o f (SINEMET-25 21:15: 01:30 First dose [place] /100) 00 :49 on [facility] Medical 25-100 mg 03/19/22 Branch tablet 1 at 1515, tablet Until Discontinu ed, Routine pantoprazol 2021-05 Yes 40mg 40 mg, Univ ers e 05-19 Slow IV ity of (PROTONIX) 14:00: Push, [place] injection 00 Q12H, Medical 40 mg First dose Branch on [facility] 03/19/22 at 0800, Until Discontinu ed pantoprazol 2021-05 No 40mg 40 mg, Uni vers e 05-19 Slow IV ity of (PROTONIX) 14:00: 19:08 Push, [place] injection 00 :25 Q12H, Medical 40 mg First dose Branch on [facility] 03/19/22 at 0800, Until Discontinu ed cyanocobala 2021-05 No 1000ug 1,000 mcg, Univers min (DODEX) 05-19 Intramuscu i ty of injection 11:30: 11:29 lar, Q24H, [place] 1,000 mcg 00 :00 3 doses, Medica l First dose Branch on [facility] 03/19/22 at 0530, Last dose on 03/21/22 at 0530, Routine vancomycin 2021-05 No 1000mg 1,000 mg, Univers (VANCOCIN) 05-19 IV ity of 1,000 mg in 00:00: 18:14 [place], [place] NaCl 0.9% 00 :00 Q8H ABX, 3 Medi maximo (NS) 250 mL doses, Branch VIAL-purchasing director dose IV on Mon piggyback 03/18/22 at 1800, Last dose on [facility] 03/19/22 at 1000, Administer over 60 Minutes, 250 mL
Reas on for Anti-Infec tive: Surgical Prophylaxi s
Surgi maximo Prophylaxi s: Neurosurge ry
Dura tion of therapy: within 24 hours of surgery vancomycin 2021-05 Yes PRN, Univers (VANCOCIN) 05-18 Starting ity o f 1 g in 16:43: on Mon [place] sodium 03/18/22 Medical chloride at 1043, Branch 0.9 % Until irrigation Discontinu ed, 1,000 mL, Intra-op vancomycin 2021-05 Yes PRN, Univers (VANCOCIN) 05-18 Starting ity o f 1 g in 16:43: on Mon [place] sodium 03/18/22 Medical chloride at 1043, Branch 0.9 % Until irrigation Discontinu ed, 1,000 mL, Intra-op bupivacaine 2021-05 Yes PRN, Univer s -epinephrin 05-18 Starting ity of e-pf 16:39: on Mon [place] (SENSORCAIN 03/18/22 Medi maximo E at 1039, Branch W/EPINEPHRI Until NE) 0.5 Discontinu %-1:200,000 ed, injection Routine, Intra-op bupivacaine 2021-05 Yes PRN, Univer s -epinephrin 05-18 Starting ity of e-pf 16:39: on Mon [place] (SENSORCAIN 03/18/22 Medi maximo E at 1039, Branch W/EPINEPHRI Until NE) 0.5 Discontinu %-1:200,000 ed, injection Routine, Intra-op enoxaparin 2021-05- No 40mg 40 mg, Univ ers (LOVENOX) 05-17 Subcutaneo ity of injection 15:00: 15:28 us, Q24H, [place] 40 mg 00 :00 1 dose, Medical First dose Branch (after last modificati on) on [place] 03/17/22 at 0900, Routine sodium 2021-05 Yes Slow IV Univers bicarbonate 05-14 Push, PRN, it y of 8.4 % (1 17:13: Starting [place] mEq/mL) 03 on Mon Medical injection 03/14/22 Branch at 1113, Until Discontinu ed, Routine sodium 2021-05- No Slow IV Univers bicarbonate -14 03-22 Push, PRN, i ty of 8.4 % (1 17:13: 22:40 [place] mEq/mL) 03 :26 on Mon Medical injection 03/14/22 Branch at 1113, Until 11/22/22 at 1640, Routine lidocaine 2021-05 Yes PRN, Univers 1% (PF) 1-14 Starting ity of (XYLOCAINE) 17:12: on Mon [place] injection 39 03/14/22 Medica l at 1112, Branch Until Discontinu ed, Routine lidocaine 2021-05 Yes PRN, Univers 1% (PF) 1-14 Starting ity of (XYLOCAINE) 17:12: on Mon [place] injection 39 03/14/22 Medica l at 1112, Branch Until Discontinu ed, Routine enoxaparin 2021-05- No 40mg 40 mg, [facility] ers (LOVENOX) 05-1417 Subcutaneo ity of injection 15:00: 13:25 us, Q24H, [place] 40 mg 00 :03 First dose Medical on [facility] 03/14/22 at 0900, Until Discontinu ed, Routine KCL 2021-05- No 40meq 40 mEq, Univers (KLOR-CON 05-1414 Oral, ity of M20) tablet 11:45: 11:44 ONCE, 1 [place] 40 mEq 00 :00 dose, On Medical [facility] 03/14/22 at 0545, Routine NaCl 0.9% 2021-05- No 1000mL at 42 [facility] ers (NS) IV -13 11-13 mL/hr, IV ity of infusion 00:35: 14:00 Infusion, [place] 1,000 mL 00 :00 ONCE, 1 Medical dose, On Branch [facility] 03/12/22 at 1845, Routine NaCl 0.9% 2021-05- No 500mL at 999 [facility] ers (NS) bolus -12 11-13 mL/hr, 500 it y of infusion 23:45: 00:15 mL, IV [place] 500 mL 00 :28 Piggyback, Medical ONCE, 1 Branch dose, On [facility] 03/12/22 at 1745, STAT albuterol 2021-05 Yes 2.5mg 2.5 mg, [facility] ers (PROVENTIL) 12 Inhalation it y of 2.5 mg /3 18:00: , QID, [place] mL (0.083 00 First dose Medi maximo %) on [facility] nebulizer 03/12/22 solution at 1200, 2.5 mg Until Discontinu ed, Routine ipratropium 2021-05 Yes .5mg 0.5 mg, Uni vers (ATROVENT) -12 Inhalation ity of 0.02 % 18:00: , QID, [place] nebulizer 00 First dose Medi maximo solution on Sat Branch 0.5 mg 03/12/22 at 1200, Until Discontinu ed, Routine albuterol 2021-05 Yes 2.5mg 2.5 mg, Univ ers (PROVENTIL) 05-12 Inhalation it y of 2.5 mg /3 18:00: , QID, [place] mL (0.083 00 First dose Medi maximo %) on Sat Branch nebulizer 03/12/22 solution at 1200, 2.5 mg Until Discontinu ed, Routine ipratropium 2021-05 Yes .5mg 0.5 mg, Uni vers (ATROVENT) 05-12 Inhalation ity of 0.02 % 18:00: , QID, [place] nebulizer 00 First dose Medi maximo solution on [facility] Branch 0.5 mg 03/12/22 at 1200, Until Discontinu ed, Routine midazolam 2021-05- No 1mg 1 mg, IV Uni vers (VERSED) 05-12 Push, ity of injection 1 15:30: 16:15 ONCE, 1 [place] mg 00 :00 dose, On Medical Sat Branch 03/12/22 at 0930, Routine FENTanyl PF 2021-05 No 50ug 50 mcg, Un ellen (SUBLIMAZE 05-12 Slow IV ity o f (PF)) 15:30: 15:52 Push, [place] injection 00 :00 ONCE, 1 Medical 50 mcg dose, On Branch 03/12/22 at 0930, Routine lidocaine 2021-05- No 20mL 20 mL, Unive rs 1% 05-12 Infiltrati ity of (XYLOCAINE) 15:30: 16:00 on, ONCE, [place] 10 mg/mL (1 00 :00 1 dose, On Me dical %) Sat Branch injection 03/12/22 20 mL at 0930, Routine isosorbide 2021-05 Yes 60mg 60 mg, Unive rs mononitrate 05-12 Oral, ity of (IMDUR) 24 15:00: DAILY, [place] hr tablet 00 First dose Medi maximo 60 mg on Sat Branch 03/12/22 at 0900, Until Discontinu ed, Routine isosorbide 2021-05 No 60mg 60 mg, Univ ers mononitrate 05-12 Oral, ity of (IMDUR) 24 15:00: 19:08 DAILY, [place] hr tablet 00 :41 First dose Medi maximo 60 mg on [facility] 03/12/22 at 0900, Until Discontinu ed, Routine foLIC acid 2021-05 No 1mg 1 mg, Unive rs (FOLATE) 05-12 Oral, ity of tablet 1 mg 15:00: 01:30 DAILY, [place] 00 :49 First dose Medical on [facility] 03/12/22 at 0900, Until Discontinu ed, Routine memantine 2021-05 No 5mg 5 mg, Univer s (NAMENDA) 05-12 Oral, ity of tablet 5 mg 15:00: 01:30 DAILY, [place] 00 :49 First dose Medical on [facility] 03/12/22 at 0900, Until Discontinu ed, Routine
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 Restricted medication : [employer]EE furosemide 2021-05 No 20mg 20 mg, Univ ers (LASIX) 05-12 Oral, ity of tablet 20 15:00: 21:36 DAILY, [place] mg 00 :36 First dose Medical (after Branch last modificati on) on [facility] 03/12/22 at 0900, Until Discontinu ed, Routine lisinopriL 2021-05 No 2.5mg 2.5 mg, Un [place]en (PRINIVIL,Z 05-12 Oral, ity of ESTRIL) 15:00: 21:36 DAILY, [place] tablet 2.5 00 :36 First dose Med ical mg on [facility] 03/12/22 at 0900, Until Discontinu ed, Routine clopidogreL 2021-05 No 75mg 75 mg, Uni vers (PLAVIX) 75 05-12 Oral, ity of mg tablet 15:00: 21:16 DAILY, [place] 75 mg 00 :58 First dose Medical on [facility] 03/12/22 at 0900, Until Discontinu ed, Routine donepeziL 2021-05 No 5mg 5 mg, Univer s (ARICEPT) 05-12 Oral, QHS, ity of tablet 5 mg 03:00: 01:30 First dose [place] 00 :49 on [facility] 03/11/22 Branch at 2100, Until Discontinu ed, Routine famotidine 2021-05- No 20mg 20 mg, Univ ers (PEPCID AC) 05-12 Oral, BID, i ty of tablet 20 02:00: 01:30 First dose [place] mg 00 :49 on [facility] 03/11/22 Branch at 2000, Until Discontinu ed, Routine docusate 2021-05- No 100mg 100 mg, [facility] ers (COLACE) 05-12 Oral, BID, ity of capsule 100 02:00: 01:30 First dose [place] mg 00 :49 on [facility] 03/11/22 Branch at 2000, Until Discontinu ed, Routine atorvastati 2021-05- No 40mg 40 mg, Uni vers n (LIPITOR) 05-11 Oral, QPM, i ty of tablet 40 23:00: 01:30 First dose [place] mg 00 :49 on [facility] 03/11/22 Branch at 1700, Until Discontinu ed, Routine HYDROcodone 2021-05 Yes 1{tbl} 1 tablet, Univers -acetaminop 05-11 Oral, ity of hen (NORCO 16:20: Q6HPRN, [place] 5) 5-325 mg 13 Starting Medi maximo tablet 1 on Fri Branch tablet 03/11/22 at 1020, Until Discontinu ed, Routine, Pain (scale 7-10) HYDROcodone 2021-05 No 1{tbl} 1 tablet, Univers -acetaminop 05-11 Oral, ity of hen (NORCO 16:20: 19:08 Q6HPRN, [place] 5) 5-325 mg 13 :25 Starting Medi maximo tablet 1 on Fri Branch tablet 03/11/22 at 1020, Until 03/22/22 at 1308, Routine, Pain (scale 7-10) acetaminoph 2021-05 No 325mg 325 mg, U nivers en 05-11 Oral, ity of (TYLENOL) 16:20: 01:30 Q4HPRN, [place] tablet 325 07 :49 Starting Medic al mg on Mon Branch 03/11/22 at 1020, Until 03/21/22 at 1930, Routine, Pain (scale 4-6) bisacodyL 2021-05 Yes 10mg 10 mg, Univer s (DULCOLAX) 1-11 Rectal, ity of suppository 16:16: QHSPRN, [place] 10 mg 46 Starting Medical on Mon Branch 03/11/22 at 1016, Until Discontinu ed, Routine, Constipati on NaCl 0.9% 2021-05 Yes 5mL 5 mL, Slow [place] (NS) 1-11 IV Push, ity of injection 5 16:16: PRN - SEE [place] mL 46 [employer]STRUCT Medical , Branch Starting on Mon03/11/22 at 1016, Until Discontinu ed, 10 mL bisacodyL 2021-05 Yes 10mg 10 mg, Univer s (DULCOLAX) 1-11 Rectal, ity of suppository 16:16: QHSPRN, [place] 10 mg 46 Starting Medical on Mon Branch 03/11/22 at 1016, Until Discontinu ed, Routine, Constipati on NaCl 0.9% 2021-05 Yes 5mL 5 mL, Slow [place]en (NS) 1-11 IV Push, ity of injection 5 16:16: PRN - SEE [place] mL 46 [facility] Medical , Branch Starting on Mon03/11/22 at 1016, Until Discontinu ed, 10 mL atorvastati 2021-05 Yes 40mg Take 40 mg Univers n 40 mg -11 by mouth ity of tablet 10:20: every [place] [address] evening. Medical Branch memantine 5 2021-05 Yes 5mg Take 5 mg U nivers mg tablet -11 by mouth ity of 10:20: daily. [place] [address] memantine [facility] Branch clopidogreL 2021-05 Yes 75mg Take 75 mg Univers 75 mg -11 by mouth ity of tablet 10:20: daily. [address] foLIC acid 2021-05 Yes 1mg Take 1 mg [place] 1 mg tablet -11 by mouth ity of 10:20: daily. [address] furosemide 2021-05 Yes 20mg Take 20 mg U nivers 20 mg -11 by mouth ity of tablet 10:20: as needed. [place] [address] Medical states Branch only taking prn isosorbide 2021-05 Yes 60mg Take 60 mg U nivers mononitrate 1-11 by mouth ity of 60 mg 24 hr 10:20: daily. [place] tablet 31 Medical Branch donepeziL 5 2021-05 Yes 5mg Take 5 mg U nivers mg tablet 1-11 by mouth ity of 10:20: at [place] [address] bedtime. Medical Donepezil Branch hcl atorvastati 2021-05 Yes 40mg Take 40 mg Univers n 40 mg 1-11 by mouth ity of tablet 10:20: every [place] [address] evening. Medical Branch memantine 5 2021-05 Yes 5mg Take 5 mg U nivers mg tablet 1-11 by mouth ity of 10:20: daily. [place] [address] memantine Medical Hcl Branch clopidogreL 2021-05 Yes 75mg Take 75 mg Univers 75 mg 1-11 by mouth ity of tablet 10:20: daily. [address] Branch foLIC acid 2021-05 Yes 1mg Take 1 mg [place] 1 mg tablet 1-11 by mouth ity of 10:20: daily. [place] [address] Medical Branch furosemide 2021-05 Yes 20mg Take 20 mg U nivers 20 mg 1-11 by mouth ity of tablet 10:20: as needed. [place] [address] [facility] Branch only taking prn isosorbide 2021-05 Yes 60mg Take 60 mg U nivers mononitrate 1-11 by mouth ity of 60 mg 24 hr 10:20: daily. [place] tablet Medical Branch donepeziL 5 2021-05 Yes 5mg Take 5 mg U nivers mg tablet 1-11 by mouth ity of 10:20: at [place] [address] bedtime. Medical Donepezil Branch hcl atorvastati 2021-05 Yes 40mg Take 40 mg Univers n 40 mg 1-11 by mouth ity of tablet 10:20: every [place] [address] evening. Medical Branch memantine 5 2021-05 Yes 5mg Take 5 mg U nivers mg tablet 1-11 by mouth ity of 10:20: daily. [place] [address] [facility] Hcl Branch clopidogreL 2021-05 Yes 75mg Take 75 mg Univers 75 mg 1-11 by mouth ity of tablet 10:20: daily. [place] [address] Medical Branch foLIC acid 2021-05 Yes 1mg Take 1 mg [place] 1 mg tablet 1-11 by mouth ity of 10:20: daily. [place] [address] Medical Branch furosemide 2021-05 Yes 20mg Take 20 mg U nivers 20 mg 1-11 by mouth ity of tablet 10:20: as needed. [place] [address] Medical [facility] Branch only taking prn isosorbide 2021-05 Yes 60mg Take 60 mg U nivers mononitrate 1-11 by mouth ity of 60 mg 24 hr 10:20: [place]. [place] tablet Medical Branch donepeziL 5 2021-05 Yes 5mg Take 5 mg U nivers mg tablet 1-11 by mouth ity of 10:20: at [place] [address] bedtime. Medical Donepezil Branch hcl atorvastati Yes 40mg Take 40 mg Univers n 40 mg 6-30 by mouth ity of tablet 21:31: every [place] [address] evening. Medical Branch memantine 5 Yes 5mg Take 5 mg U nivers mg tablet 6-30 by mouth ity of 21:31: daily. [place] [address] memantine Medical [facility] Branch atorvastati Yes 40mg Take 40 mg Univers n 40 mg 6-30 by mouth ity of tablet 21:31: every [place] [address] evening. Medical Branch memantine 5 Yes 5mg Take 5 mg U nivers mg tablet 6-30 by mouth ity of 21:31: daily. [address] Branch clopidogreL Yes 75mg Take 75 mg Univers 75 mg 6-30 by mouth ity of tablet 21:31: daily. [address] Branch foLIC acid Yes 1mg Take 1 mg [place] 1 mg tablet 6-30 by mouth ity of 21:31: daily. [place] [address] Medical Branch furosemide Yes 20mg Take 20 mg U nivers 20 mg 6-30 by mouth ity of tablet 21:31: as needed. [place] [address] [facility] Branch only taking prn isosorbide 2021- Yes 60mg Take 60 mg U nivers mononitrate 6-30 by mouth ity of 60 mg 24 hr 21:31: [place]. [place] tablet Medical Branch donepeziL 5 Yes 5mg Take 5 mg U nivers mg tablet 6-30 by mouth ity of 21:31: at [place] [address] bedtime. Medical Donepezil Branch hcl clopidogreL 2021-0 Yes 75mg Take 75 mg Univers 75 mg 6-30 by mouth ity of tablet 21:31: daily. [place] [address] Medical Branch atorvastati 2021-0 Yes 40mg Take 40 mg Univers n 40 mg 6-30 by mouth ity of tablet 21:31: every [place] [address] evening. Medical Branch memantine 5 2021-0 Yes 5mg Take 5 mg U nivers mg tablet 6-30 by mouth ity of 21:31: daily. [address] [facility] Branch clopidogreL 2021-0 Yes 75mg Take 75 mg Univers 75 mg 6-30 by mouth ity of tablet 21:31: daily. [address] Branch foLIC acid 2021-0 Yes 1mg Take 1 mg [place] 1 mg tablet 6-30 by mouth ity of 21:31: daily. [address] Branch furosemide 2021-0 Yes 20mg Take 20 mg U nivers 20 mg 6-30 by mouth ity of tablet 21:31: as needed. [place] [address] [facility] Branch only taking prn isosorbide 2021-0 Yes 60mg Take 60 mg U nivers mononitrate 6-30 by mouth ity of 60 mg 24 hr 21:31: daily. [place] [address] Medical Branch donepeziL 5 2021-0 Yes 5mg Take 5 mg U nivers mg tablet 6-30 by mouth ity of 21:31: at [place] [address] bedtime. Medical Donepezil Branch hcl foLIC acid 2021-0 Yes 1mg Take 1 mg [place] 1 mg tablet 6-30 by mouth ity of 21:31: daily. [place] [address] Medical Branch atorvastati 2021-0 Yes 40mg Take 40 mg Univers n 40 mg 6-30 by mouth ity of tablet 21:31: every [place] [address] evening. Medical Branch memantine 5 2021-0 Yes 5mg Take 5 mg U nivers mg tablet 6-30 by mouth ity of 21:31: daily. [address] Medical [facility] Branch clopidogreL 2021-0 Yes 75mg Take 75 mg Univers 75 mg 6-30 by mouth ity of tablet 21:31: daily. [address] Branch foLIC acid 2021-0 Yes 1mg Take 1 mg [place] 1 mg tablet 6-30 by mouth ity of 21:31: daily. [place] [address] Medical Branch furosemide 2021-0 Yes 20mg Take 20 mg U nivers 20 mg 6-30 by mouth ity of tablet 21:31: as needed. [place] [address] Medical [facility] Branch only taking prn isosorbide 2021-0 Yes 60mg Take 60 mg U nivers mononitrate 6-30 by mouth ity of 60 mg 24 hr 21:31: [place]. [place] tablet Medical Branch donepeziL 5 2021-0 Yes 5mg Take 5 mg U nivers mg tablet 6-30 by mouth ity of 21:31: at [place] [address] bedtime. Medical Donepezil Branch hcl atorvastati 2021-0 Yes 40mg Take 40 mg Univers n 40 mg 6-30 by mouth ity of tablet 21:31: every [place] [address] evening. Medical Branch memantine 5 2021-0 Yes 5mg Take 5 mg U nivers mg tablet 6-30 by mouth ity of 21:31: daily. [place] [address] [facility] Branch furosemide 2021-0 Yes 20mg Take 20 mg U nivers 20 mg 6-30 by mouth ity of tablet 21:31: as needed. [address] Branch only taking prn clopidogreL 2021-0 Yes 75mg Take 75 mg Univers 75 mg 6-30 by mouth ity of tablet 21:31: daily. [place] [address] Medical Branch foLIC acid 2021-0 Yes 1mg Take 1 mg [place] 1 mg tablet 6-30 by mouth ity of 21:31: daily. [place] [address] Medical Branch furosemide 2021-0 Yes 20mg Take 20 mg U nivers 20 mg 6-30 by mouth ity of tablet 21:31: as needed. [address] Branch only taking prn isosorbide 2021-0 Yes 60mg Take 60 mg U nivers mononitrate 6-30 by mouth ity of 60 mg 24 hr 21:31: [place]. [place] tablet Medical Branch donepeziL 5 2021-0 Yes 5mg Take 5 mg U nivers mg tablet 6-30 by mouth ity of 21:31: at [place] [address] bedtime. Medical Donepezil Branch hcl atorvastati 2021-0 Yes 40mg Take 40 mg Univers n 40 mg 6-30 by mouth ity of tablet 21:31: every [place] 31 evening. Medical Branch memantine 5 2021-0 Yes 5mg Take 5 mg U nivers mg tablet 6-30 by mouth ity of 21:31: daily. [place] [address] memantine Medical Hcl Branch clopidogreL 2021-0 Yes 75mg Take 75 mg Univers 75 mg 6-30 by mouth ity of tablet 21:31: daily. [place] [address] Medical Branch isosorbide 2021-0 Yes 60mg Take 60 mg U nivers mononitrate 6-30 by mouth ity of 60 mg 24 hr 21:31: [place]. [place] tablet Medical [place] foLIC acid 2021-0 Yes 1mg Take 1 mg [place] 1 mg tablet 6-30 by mouth ity of 21:31: daily. [place] [address] Medical Branch furosemide 2021-0 Yes 20mg Take 20 mg U nivers 20 mg 6-30 by mouth ity of tablet 21:31: as needed. [address] Branch only taking prn isosorbide 2021-0 Yes 60mg Take 60 mg U nivers mononitrate 6-30 by mouth ity of 60 mg 24 hr 21:31: [place]. [place] [address] Medical Branch donepeziL 5 2021-0 Yes 5mg Take 5 mg U nivers mg tablet 6-30 by mouth ity of 21:31: at [place] [address] bedtime. Medical Donepezil Branch hcl atorvastati 2021-0 Yes 40mg Take 40 mg Univers n 40 mg 6-30 by mouth ity of tablet 21:31: every [place] [address] evening. Medical Branch memantine 5 2021-0 Yes 5mg Take 5 mg U nivers mg tablet 6-30 by mouth ity of 21:31: daily. [place] [address] memantine Medical Hcl Branch clopidogreL 2021-0 Yes 75mg Take 75 mg Univers 75 mg 6-30 by mouth ity of tablet 21:31: daily. [place] [address] Medical Branch donepeziL 5 2021-0 Yes 5mg Take 5 mg U nivers mg tablet 6-30 by mouth ity of 21:31: at [place] [address] bedtime. Medical Donepezil Branch hcl foLIC acid 2021-0 Yes 1mg Take 1 mg [place] 1 mg tablet 6-30 by mouth ity of 21:31: daily. [address] Branch furosemide 2021-0 Yes 20mg Take 20 mg U nivers 20 mg 6-30 by mouth ity of tablet 21:31: as needed. [place] [address] Medical states Branch only taking prn isosorbide 2021-0 Yes 60mg Take 60 mg U nivers mononitrate 6-30 by mouth ity of 60 mg 24 hr 21:31: daily. [place] tablet [place] Branch donepeziL 5 2021-0 Yes 5mg Take 5 mg U nivers mg tablet 6-30 by mouth ity of 21:31: at [place] [address] bedtime. Medical Donepezil Branch hcl atorvastati 2021-0 Yes 40mg Take 40 mg Univers n 40 mg 6-30 by mouth ity of tablet 21:31: every [place] evening. Medical Branch memantine 5 2021-0 Yes 5mg Take 5 mg U nivers mg tablet 6-30 by mouth ity of 21:31: daily. [place] [address] memantine Medical Hcl Branch clopidogreL 2021-0 Yes 75mg Take 75 mg Univers 75 mg 6-30 by mouth ity of tablet 21:31: daily. [place] [address] Medical Branch foLIC acid 2021-0 Yes 1mg Take 1 mg Un ellen 1 mg tablet 6-30 by mouth ity of 21:31: daily. [place] [address] Medical Branch furosemide 2021-0 Yes 20mg Take 20 mg U nivers 20 mg 6-30 by mouth ity of tablet 21:31: as needed. [place] [address] [facility] only taking prn isosorbide 2021-0 Yes 60mg Take 60 mg U nivers mononitrate 6-30 by mouth ity of 60 mg 24 hr 21:31: [place] donepeziL 5 2021-0 Yes 5mg Take 5 mg U nivers mg tablet 6-30 by mouth ity of 21:31: at [place] [address] bedtime. Medical Donepezil Branch hcl atorvastati 2021-0 Yes 40mg Take 40 mg Univers n 40 mg 6-30 by mouth ity of tablet 21:31: every [place] [address] evening. Medical Branch memantine 5 2021-0 Yes 5mg Take 5 mg U nivers mg tablet 6-30 by mouth ity of 21:31: daily. [place] [address] memantine Medical Hcl Branch clopidogreL 2021-0 Yes 75mg Take 75 mg Univers 75 mg 6-30 by mouth ity of tablet 21:31: daily. [place] [address] Medical Branch foLIC acid 2021-0 Yes 1mg Take 1 mg Un ellen 1 mg tablet 6-30 by mouth ity of 21:31: daily. [place] [address] Medical Branch furosemide 2021-0 Yes 20mg Take 20 mg U nivers 20 mg 6-30 by mouth ity of tablet 21:31: as needed. [place] [address] Medical [facility] Branch only taking prn isosorbide 2021-0 Yes 60mg Take 60 mg U nivers mononitrate 6-30 by mouth ity of 60 mg 24 hr 21:31: [place]. [place] donepeziL 5 2021-0 Yes 5mg Take 5 mg U nivers mg tablet 6-30 by mouth ity of 21:31: at [place] [address] bedtime. Medical Donepezil Branch hcl atorvastati 2021-0 Yes 40mg Take 40 mg Univers n 40 mg 6-30 by mouth ity of tablet 21:31: every [place] [address] evening. Medical Branch memantine 5 2021-0 Yes 5mg Take 5 mg U nivers mg tablet 6-30 by mouth ity of 21:31: daily. [place] [address] memantine [address] [facility] Branch clopidogreL 2021-0 Yes 75mg Take 75 mg Univers 75 mg 6-30 by mouth ity of tablet 21:31: daily. [address] Branch foLIC acid 2021-0 Yes 1mg Take 1 mg Un ellen 1 mg tablet 6-30 by mouth ity of 21:31: daily. [place] [address] Medical Branch furosemide 2021-0 Yes 20mg Take 20 mg U nivers 20 mg 6-30 by mouth ity of tablet 21:31: as needed. [place] [address] Medical [facility] Branch only taking prn isosorbide 2021-0 Yes 60mg Take 60 mg U nivers mononitrate 6-30 by mouth ity of 60 mg 24 hr 21:31: [place]. [place] donepeziL 5 2021-0 Yes 5mg Take 5 mg U nivers mg tablet 6-30 by mouth ity of 21:31: at [place] [address] bedtime. Medical Donepezil Branch hcl atorvastati 2021-0 Yes 40mg Take 40 mg Univers n 40 mg 6-30 by mouth ity of tablet 21:31: every [place] [address] evening. Medical Branch memantine 5 2021-0 Yes 5mg Take 5 mg U nivers mg tablet 6-30 by mouth ity of 21:31: daily. [place] [address] memantine Medical Hcl Branch clopidogreL 2021-0 Yes 75mg Take 75 mg Univers 75 mg 6-30 by mouth ity of tablet 21:31: daily. [place] [address] Medical Branch foLIC acid 2021-0 Yes 1mg Take 1 mg Un ellen 1 mg tablet 6-30 by mouth ity of 21:31: daily. [place] [address] Medical Branch furosemide 2021-0 Yes 20mg Take 20 mg U nivers 20 mg 6-30 by mouth ity of tablet 21:31: as needed. [place] [address] [facility] Branch only taking prn isosorbide 2021-0 Yes 60mg Take 60 mg U nivers mononitrate 6-30 by mouth ity of 60 mg 24 hr 21:31: [place]. [place] donepeziL 5 2021-0 Yes 5mg Take 5 mg U nivers mg tablet 6-30 by mouth ity of 21:31: at [place] [address] bedtime. Medical Donepezil Branch hcl atorvastati 0 Yes 40mg Take 40 mg Univers n 40 mg 6-30 by mouth ity of tablet 21:31: every [place] [address] evening. Medical Branch memantine 5 2021-0 Yes 5mg Take 5 mg U nivers mg tablet 6-30 by mouth ity of 21:31: daily. [place] [address] memantine Medical Hcl Branch clopidogreL 2021-0 Yes 75mg Take 75 mg Univers 75 mg 6-30 by mouth ity of tablet 21:31: daily. [address] Branch foLIC acid 2021-0 Yes 1mg Take 1 mg Un ellen 1 mg tablet 6-30 by mouth ity of 21:31: daily. [place] [address] Medical Branch furosemide 2021-0 Yes 20mg Take 20 mg U nivers 20 mg 6-30 by mouth ity of tablet 21:31: as needed. [place] [address] [facility] Branch only taking prn isosorbide 2021-0 Yes 60mg Take 60 mg U nivers mononitrate 6-30 by mouth ity of 60 mg 24 hr 21:31: [place]. [place] tablet [place] donepeziL 5 2021-0 Yes 5mg Take 5 mg U nivers mg tablet 6-30 by mouth ity of 21:31: at [place] [address] bedtime. Medical Donepezil Branch hcl lisinopriL 2022-0 [...] of tablet 00:00: mouth [place] 00 daily. [facility] lisinopriL 2021-0 Yes 2.5mg Take 1 Univ ers 2.5 mg 6-29 tablet by ity of tablet 00:00: mouth [place] 00 daily. [facility] lisinopriL 2021-0 Yes 2.5mg Take 1 Univ ers 2.5 mg 6-29 tablet by ity of tablet 00:00: mouth [place] 00 daily. [facility] lisinopriL 2021-0 2022- No 2.5mg Take 1 Uni vers 2.5 mg 6-29 12-05 tablet by ity of tablet 00:00: 00:00 mouth [place] 00 :00 daily. [facility] lisinopriL 2021-2021- No 20mg Take 20 mg Univers 20 mg -28 10-26 by mouth ity of tablet 14:35: 00:00 [place]. [place] 32 :00 [facility] only taking prn lactated 2021- No 500mL at 100 Unive rs ringers IV 10-24 mL/hr, 500 it y of infusion 15:57: 15:58 mL, [place] 500 mL 00 :00 Intravenou Medical s, ONCE, 1 Branch dose, On 10/24/21 at 1100, DIMITRI lisinopriL Yes 2.5mg 2.5 mg, Uni vers (PRINIVIL,Z 10-24 Oral, ity of ESTRIL) 14:00: DAILY, [place] tablet 2.5 00 First dose Med ical mg (after [place] last modificati on) on 10/24/21 at 0900, Until Discontinu ed, Routine ondansetron 2021- No 4mg 4 mg, Slow Univers (ZOFRAN 10-24 IV Push, ity of (PF)) 07:15: 06:13 ONCE, On [place] injection 4 00 :00 [facility] mg 10/24/21 at Branch 0215, For 1 dose
Do ses of ondansetro n 16 mg and above need to be administer ed via IV piggyback. For Dose >=24mg ECG monitoring is advisable.
lactated 2021-0 2021- No 500mL at 999 Unive rs ringers IV 10-24- mL/hr, 500 it y of infusion 01:15: [...] at 0900, Until Discontinu ed, Routine lidocaine 2021- No 10mL 10 mL, Unive rs 1% [...] 1 dose, On Medi maximo 20 mL [facility] Branch 10/21/21 at 1645, Routine thiamine 2021- No 100mg IV Univers (VITAMIN 10-21 Piggyback, [...] 00 :00 1 dose, On Medical injection [facility] 1,000 mcg 10/18/21 at 2230, Routine lactated No 500mL at 150 Unive rs ringers IV 10-18 mL/hr, 500 it y of infusion 14:45: 15:50 mL, [place] 500 mL 00 :00 Intravenou Medical s, ONCE, 1 Branch dose, On Mon10/18/21 at 0945, Routine donepeziL No 5mg 5 mg, Univer s (ARICEPT) 10-18 Oral, QHS, ity of tablet 5 mg 02:00: 21:17 First dose [place] 00 :48 on [facility] 10/17/21 at Branch 2100, Until Discontinu ed, Routine enoxaparin Yes 40mg 40 mg, Unive rs (LOVENOX) 10-17 Subcutaneo ity of injection 22:00: [place], DAILY, [place] 40 mg 00 First dose Medical on [facility] 10/17/21 at 1700, Until Discontinu ed, Routine atorvastati Yes 40mg 40 mg, Univ ers n (LIPITOR) 10-17 Oral, QPM, it y of tablet 40 22:00: First dose [place] mg 00 on [facility] 10/17/21 at Branch 1700, Until Discontinu ed, Routine isosorbide Yes 60mg 60 mg, Unive rs mononitrate 10-17 Oral, ity of (IMDUR) 24 14:00: DAILY, [place] hr tablet 00 First dose Medi maximo 60 mg on [facility] 10/17/21 at 0900, Until Discontinu ed, Routine foLIC acid Yes 1mg 1 mg, Univer s (FOLATE) 10-17 Oral, ity of tablet 1 mg 14:00: DAILY, [place] 00 First dose Medical on [facility] 10/17/21 at 0900, Until Discontinu ed, Routine clopidogreL Yes 75mg 75 mg, Univ ers (PLAVIX) 75 10-17 Oral, ity of mg tablet 14:00: DAILY, [place] 75 mg 00 First dose Medical on [facility] 10/17/21 at 0900, Until Discontinu ed, Routine memantine 2021- No 5mg 5 mg, Univer s (NAMENDA) 10-17 Oral, ity of tablet 5 mg 14:00: 21:17 DAILY, [place] 00 :48 First dose Medical on [facility] 10/17/21 at 0900, Until Discontinu ed, Routine
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 Restricted medication : GERALDINE CERVANTES thiamine 2021- No 200mg IV Univers (VITAMIN 10-17 Piggyback, ity of B1) 200 mg 13:15: 14:19 DAILY, 3 [place] in NaCl 00 :00 doses, Medical 0.9% (NS) First dose Bran ch piggyback on [place] 10/17/21 at 0815, Last dose on Mon10/18/21 at 0900, 50 mL lactated 2021- No 500mL at 150 Unive rs ringers IV 10-17 mL/hr, 500 it y of infusion 12:15: 13:39 mL, [place] 500 mL 00 :00 Intravenou Medical s, ONCE, 1 Branch dose, On [place] 10/17/21 at 0715, Routine acetaminoph Yes 650mg 650 mg, Un ellen en 10-17 Oral, ity of (TYLENOL) 11:03: Q6HPRN, [place] tablet 650 36 Starting Medic al mg on [facility] 10/17/21 at 0603, Until Discontinu ed, Routine, Pain (scale 1-3) donepeziL 2021- No 5mg Take 5 mg Un ellen 10 mg 10-17 by mouth ity of tablet 06:03: 00:00 every [place] 56 :00 morning. Medical Donepezil Branch Hcl isosorbide 2021- No 60mg Take 60 mg Univers mononitrate 10-17 by mouth ity of 120 mg 24 06:03: 00:00 daily. [place] hr tablet 56 :00 Medical Branch iohexol 2021- No [id number] 130mL 130 mL, U nivers (OMNIPAQUE 10-17 Intravenou it y of 350 06:00: 05:39 s, ONCE, 1 [place] BULK-100 00 :00 dose, On Medical mL) [place] Branch injection 10/17/21 at 130 mL 0100, Routine NaCl 0.9% Yes 5mL 5 mL, Slow Un ellen (NS) 10-17 IV Push, ity of injection 5 04:53: PRN - SEE [place] mL 24 INSTRUCTIO Medical NS, Branch Starting on 10/16/21 at 2353, Until Discontinu ed, 10 mL Vitamin D3 Vitamin D3 2020- No 1{capsu Vitamin D3 01868 UNIT 85239 UNIT 11-03 le} 80833 UNIT 00:00: 00:00 00 :00 Vitamin D3 Vitamin D3 2020-0 202- No 1{capsu Vitamin D3 79696 UNIT 64836 UNIT 11-03 le} 94157 UNIT 00:00: 00:00 00 :00 Vitamin D3 Vitamin D3 2020-0 202- No 1{capsu Vitamin D3 54025 UNIT 52188 UNIT 11-03 le} 87348 UNIT 00:00: 00:00 00 :00 furosemide 2020-0 Yes 20mg Q.5W Take 20 mg M ethodi (LASIX) 20 4-[address] mg tablet 16:10: (two) Hospita 34 times a l week. Takes on Monday and furosemide 2020-0 Yes 20mg Q.5W Take 20 mg M ethodi (LASIX) 20 4-[address] mg tablet 16:10: (two) Hospita 34 times a l week. Takes on Monday and folic acid 2020-0 Yes 1mg QD Take 1 mg Me thodi (FOLVITE) 1 3-[address] MG tablet 00:00: daily. Hospit a l donepeziL Yes 5mg QD Take 5 mg Met hodi (ARICEPT) 5 3-[address] MG tablet 00:00: daily. Hospit a l folic acid 0 Yes 1mg QD Take 1 mg Me thodi (FOLVITE) 1 3-[address] MG tablet 00:00: daily. Hospit a 00 l donepeziL 2020-0 Yes 5mg QD Take 5 mg Met hodi (ARICEPT) 5 3-[address] MG tablet 00:00: daily. Hospit a 00 l metoprolol 2020-0 Yes 25mg Q.5D Take 25 mg M ethodi tartrate 2-[address] (LOPRESSOR) 00:00: (two) Hospi ta 25 mg 00 times a l tablet day. metoprolol 2020-0 Yes 25mg Q.5D Take 25 mg M ethodi tartrate 2-[address] (LOPRESSOR) 00:00: (two) Hospi ta 25 mg 00 times a l tablet day. atorvastati 2020-0 Yes 40mg QD Take 40 mg Methodi n (LIPITOR) 2-[address] 40 mg 00:00: daily. Hospita tablet 00 l clopidogreL 2020-0 Yes 75mg QD Take 75 mg Methodi (PLAVIX) 75 2-[address] mg tablet 00:00: daily. Hospit a 00 l atorvastati 2020-0 Yes 40mg QD Take 40 mg Methodi n (LIPITOR) 2-[address] 40 mg 00:00: daily. Hospita tablet 00 l clopidogreL 2020-0 Yes 75mg QD Take 75 mg Methodi (PLAVIX) 75 2-[address] mg tablet 00:00: daily. Hospit a 00 l lisinopriL 2020-0 Yes 10mg QD Take 10 mg M ethodi (PRINIVIL) 1-[address] 10 mg 00:00: daily. Hospita tablet 00 l lisinopriL 2020-0 Yes 10mg QD Take 10 mg M ethodi (PRINIVIL) 1-[address] 10 mg 00:00: daily. Hospita tablet 00 l Zofran Zofran 2020-0 Yes [place] 1 tablet Comm on 2-28 [place] as needed Spiri t 00:00: for - [facility] 00 nausea/[place] [facility] [place]an 4 MG Zofran 4 MG 2020-0 [...] Spirit 00:00: 00:00 - [facility] 00 :00 [facility] Folic Acid Folic Acid 2020-0 2020- No 1{table QD Folic Acid 1 MG 1 MG -02-28 t} 1 MG 00:00: 00:00 00 :00 Donepezil Donepezil 2019-1 Yes Ashley 1 tablet Common HCl HCl 1-21 [place] at bedtime Spir it 00:00: - [facility]I 00 [facility] Crestor Crestor 2018-0 Yes Ashley 1 tablet Co mmon 9-18 [place] in evening Spir it 00:00: (for high - [facility] [address] l) [facility] Lisinopril Lisinopril Yes Ashley 1 tablet Common Millender [facility] Clopidogrel Clopidogrel Yes Ashley 1 tablet Common Bisulfate Bisulfate Mill[place] [facility] Ultram Ultram Yes Ashley 1 tab as Common [place] needed for Spir it severe - [facility]I pain [facility] Atorvastati Atorvastati Yes Ashley 1 tablet Common n Calcium n Calcium Millender [facility] Metoprolol Metoprolol Yes Ashley 1 tablet Common Tartrate Tartrate [place] with food [facility] Advair Advair Yes Ashley 1 puff Common Diskus Diskus Millender [facility] Krill Oil Krill Oil Yes Ashley (otc) 1 C ommon [place]ender capsule [facility] ProAir HFA ProAir HFA Yes Ashley 2 puffs as Common [place] needed [facility] Lipitor Lipitor Yes Ashley 1 tablet Comm on Millender [facility] Furosemide Furosemide Yes Ashley 1 tablet Common Millender [facility] Sulfamethox Sulfamethox Yes Ashley TAKE 1 Common azole-Trime azole-Trime [place] TABLET BY Spirit thoprim thoprim MOUTH - [facility]I EVERY [address] St HOURS FOR [facility] 10 [facility] Doxycycline Doxycycline Yes Ashley TAKE 1 Common Hyclate Hyclate [place] CAPSULE BY Spirit MOUTH - [facility]I EVERY [address] St HOURS [facility] Aspirin 81 Aspirin 81 No 1{table QD [...] D3 Vitamin D3 No 1{capsu Vitamin D3 44237 UNIT 09196 UNIT le} 58761 UNIT Lisinopril Lisinopril No 1{table BID Lisinopril 10 MG 10 MG t} 10 MG Atorvastati Atorvastati No 1{table QD Atorvastat n Calcium n Calcium t} in Calcium 40 MG 40 MG 40 MG Vitamin D3 Vitamin D3 No Vitamin D3 1.25 MG 1.25 MG 1.25 MG (39435 UT) (15575 UT) (85434 UT) Vitamin D3 Vitamin D3 No 1{capsu Vitamin D3 81674 UNIT 45224 UNIT le} 50819 UNIT Advair Advair No 1{puff} BID Advair [...] 20 MG 20 MG t} 20 MG Atorvastati Atorvastati No 1{table QD Atorvastat n Calcium n Calcium t} in Calcium 40 MG 40 MG 40 MG Advair Advair No 1{puff} BID Advair Diskus Diskus Diskus 250-50 250-50 250-50 MCG/DOSE MCG/DOSE MCG/DOSE Vitamin D3 Vitamin D3 No 1{capsu Vitamin D3 37171 UNIT 45740 UNIT le} 22595 UNIT ProAir HFA ProAir HFA No 2{puffs QID ProAir HFA 108 (90 108 (90 _as_nee 108 (90 Base) Base) ded} Base) MCG/ACT MCG/ACT MCG/ACT Lisinopril Lisinopril No 1{table BID Lisinopril 20 [...] 5 MG t_at_be HCl 5 MG dtime} Vitamin D3 Vitamin D3 No Vitamin D3 1.25 MG 1.25 MG 1.25 MG (03337 UT) (90628 UT) (88042 UT) Clopidogrel Clopidogrel No 1{table QD Clopidogre Bisulfate [...] 1000 MG Aspirin 81 Aspirin 81 2020- No Ashley 1 tablet Common - Mill[place] Spirit 00:00 - CHI :00 [facility] Vital Signs Vital Name Observation Time Observation Value Comments Source Systolic blood 2023-01-25 129 mm[Hg] University of pressure 23:36:00 [facility] Diastolic blood 2023-01-25 63 mm[Hg] University o f pressure 23:36:00 [facility] Heart rate 2023-01-25 83 /min University of 23:36:00 [place] [facility] Body temperature 2023-01-25 37 Alma Delia University of 23:36:00 [place] [facility] Respiratory rate 2023-01-25 16 /min University of 23:36:00 [place] [facility] Oxygen saturation 2023-01-25 95 /min University of in Arterial blood 23:36:00 [place] Medi maximo by Pulse oximetry Branch Body weight 2023-01-18 92.534 kg University of 17:00:00 [place] [facility] BMI 2023-01-18 30.13 kg/m2 University of 17:00:00 [facility] Body height 2023-01-10 175.3 cm University of 08:04:00 [facility] Branch Systolic blood 2023-01-23 129 mm[Hg] University of pressure 14:15:00 [facility] Branch Diastolic blood 2023-01-23 72 mm[Hg] University o f pressure 14:15:00 [place] [facility] Heart rate 2023-01-23 63 /min University of 14:15:00 [place] [facility] Respiratory rate 2023-01-23 17 /min University of 14:15:00 [facility] Branch Oxygen saturation 2023-01-23 92 /min University of in Arterial blood 14:15:00 [facility] maximo by Pulse oximetry Branch Body temperature 2023-01-23 36.17 Al[place] Delia University of 14:11:00 [place] Medical [place] Body weight 2023-01-18 92.534 kg University of 17:00:00 [facility] BMI 2023-01-18 30.13 kg/m2 University of 17:00:00 [facility] Body height 2023-01-10 175.3 cm University of 08:04:00 [place] [facility] Systolic blood 2023-01-10 150 mm[Hg] University of pressure 07:00:00 [place] [facility] Diastolic blood 2023-01-10 77 mm[Hg] University o f pressure 07:00:00 [facility] Branch Heart rate 2023-01-10 63 /min University of 07:00:00 [facility] Branch Body temperature 2023-01-10 37.28 Al[place] Delia University of 07:00:00 [place] [facility] Respiratory rate 2023-01-10 17 /min University of 07:00:00 [facility] Branch Oxygen saturation 2023-01-10 96 /min University of in Arterial blood 07:00:00 [place] Medi maximo by Pulse oximetry Branch Body weight 2023-01-10 91.627 kg University of 02:19:00 [place] [facility] BMI 2023-01-10 29.83 kg/m2 University of 02:19:00 [place] [facility] Systolic blood 2023-01-09 159 mm[Hg] University of pressure 06:30:00 [facility] Branch Diastolic blood 2023-01-09 92 mm[Hg] University o f pressure 06:30:00 [facility] Branch Heart rate 2023-01-09 50 /min University of 06:30:00 [facility] Branch Body temperature 2023-01-09 37.06 Al[place] Delia University of 06:30:00 [facility] Branch Respiratory rate 2023-01-09 17 /min University of 06:30:00 [facility] Oxygen saturation 2023-01-09 97 /min University of in Arterial blood 06:30:00 [place] Medi maximo by Pulse oximetry Branch Body height 2023-01-09 175.3 cm University of 02:50:00 [facility] Body weight 2023-01-09 91.627 kg University of 02:50:00 [facility] BMI 2023-01-09 29.83 kg/m2 University of 02:50:00 [facility] Systolic blood 2022-12-28 145 mm[Hg] notified University of pressure 16:08:00 provider [place] [facility] Diastolic blood 2022-12-28 71 mm[Hg] notified University o f pressure 16:08:00 provider [facility] Heart rate 2022-12-28 54 /min University of 16:06:00 [facility] Body temperature 2022-12-28 36 [place] Delia University of 16:06:00 [facility] Branch Respiratory rate 2022-12-28 17 /min University of 16:06:00 [facility] Body height 2022-12-28 175.3 cm University of 16:0600 [facility] Body weight 2022-12-28 91.128 kg University of 16:06:00 [facility] BMI 2022-12-28 29.67 kg/m2 University of 16:06:00 [facility] Oxygen saturation 2022-12-28 98 /min University of in Arterial blood 16:06:00 [place] Medi maximo by Pulse oximetry Branch Systolic blood 2022-12-26 145 mm[Hg] University of pressure 19:26:00 [place] [facility] Diastolic blood 2022-12-26 73 mm[Hg] University o f pressure 19:26:00 [facility] Heart rate 2022-12-26 72 /min University of 19:26:00 [facility] Body temperature 2022-12-26 37.06 Al[place] Delia University of 19:26:00 [facility] Respiratory rate 2022-12-26 16 /min University of 19::00 [facility] Oxygen saturation 2022-12-26 97 /min University of in Arterial blood 19:26:00 [place] Medi maximo by Pulse oximetry Branch Body height 2022-12-26 175.3 cm University of 16:33:00 [facility] Body weight 2022-12-26 83.915 kg University of 16:33:00 [facility] BMI 2022-12-26 27.32 kg/m2 University of 16:33:00 [facility] Systolic blood 2022-11-16 140 mm[Hg] University of pressure 16:21:00 [facility] Diastolic blood 2022-11-16 73 mm[Hg] University o f pressure 16:21:00 [facility] Heart rate 2022-11-16 65 /min University of 16:21:00 [facility] Oxygen saturation 2022-11-16 95 /min University of in Arterial blood 16:21:00 [place] Medi maximo by Pulse oximetry Branch Body temperature 2022-11-16 36.67 Al[place] Delia University of 16:20:00 [facility] Respiratory rate 2022-11-16 18 /min University of 16:20:00 [facility] Body weight 2022-11-16 89.359 kg University of 16:20:00 [facility] BMI 2022-11-16 29.09 kg/m2 University of 16:20:00 [facility] Systolic blood 2022-09-14 148 mm[Hg] University of pressure 15:29:00 [facility] Diastolic blood 2022-09-14 67 mm[Hg] University o f pressure 15:29:00 [facility] Heart rate 2022-09-14 66 /min University of 15:29:00 [facility] Body height 2022-09-14 175.3 cm University of 15:28:00 [facility] Body weight 2022-09-14 82.555 kg University of 15:28:00 [facility] BMI 2022-09-14 26.88 kg/m2 University of 15:28:00 [facility] Branch Systolic blood 2022-08-08 133 mm[Hg] University of pressure 21:39:00 [place] [facility] Diastolic blood 2022-08-08 72 mm[Hg] University o f pressure 21:39:00 [facility] Branch Heart rate 2022-08-08 69 /min University of 21:39:00 [facility] Body temperature 2022-08-08 36.83 Al[place] Delia University of 21:39:00 [facility] Branch Body height 2022-08-08 175.3 cm University of 21:39:00 [facility] Branch Body weight 2022-08-08 83.825 kg University of 21:39:00 [facility] BMI 2022-08-08 27.29 kg/m2 University of 21:39:00 [facility] Oxygen saturation 2022-08-08 97 /min University of in Arterial blood 21:39:00 [facility] maximo by Pulse oximetry Branch Systolic blood 2022-07-21 145 mm[Hg] University of pressure 20:26:00 [facility] Branch Diastolic blood 2022-07-21 62 mm[Hg] University o f pressure 20:26:00 [facility] Branch Heart rate 2022-07-21 82 /min University of 20:26:00 [facility] Body temperature 2022-07-21 36.11 Al[place] Delia University of 20:26:00 [facility] Branch Respiratory rate 2022-07-21 18 /min University of 20:26:00 [facility] Branch Oxygen saturation 2022-07-21 96 /min University of in Arterial blood 20:26:00 [facility] maximo by Pulse oximetry Branch Body weight 2022-07-20 87.499 kg University of 08:17:00 [facility] BMI 2022-07-20 28.49 kg/m2 University of 08:17:00 [facility] Body height 2022-07-19 175.3 cm University of 05:57:00 [facility] Branch Systolic blood 2022-07-12 159 mm[Hg] University of pressure 08:00:00 [place] [facility] Diastolic blood 2022-07-12 73 mm[Hg] University o f pressure 08:00:00 [place] [facility] Heart rate 2022-07-12 61 /min University of 08:00:00 [place] [facility] Respiratory rate 2022-07-12 16 /min University of 08:00:00 [facility] Oxygen saturation 2022-07-12 96 /min University of in Arterial blood 08:00:00 [facility] by Pulse oximetry Branch Body temperature 2022-07-12 37.33 Alma Delia University of 04:35:00 [facility] Body height 2022-07-12 175.3 cm University of 04:35:00 [facility] Body weight 2022-07-12 81.647 kg University of 04:35:00 [facility] BMI 2022-07-12 26.58 kg/m2 University of 04:35:00 [facility] Body weight 2022-06-27 83.915 kg University of 19:45:00 [facility] BMI 2022-06-27 27.32 kg/m2 University of 19:45:00 [facility] Systolic blood 2022-06-14 139 mm[Hg] University of pressure 20:43:00 [facility] Diastolic blood 2022-06-14 84 mm[Hg] University o f pressure 20:43:00 [facility] Heart rate 2022-06-14 66 /min University of 20:43:00 [facility] Body temperature 2022-06-14 36.61 Alma Delia University of 20:43:00 [facility] Respiratory rate 2022-06-14 18 /min University of 20:43:00 [facility] Body height 2022-06-14 175.3 cm University of 20:43:00 [facility] Body weight 2022-06-14 84.097 kg University of 20:43:00 [facility] BMI 2022-06-14 27.38 kg/m2 University of 20:43:00 [facility] Oxygen saturation 2022-06-14 96 /min University of in Arterial blood 20:43:00 [facility] by Pulse oximetry Branch Systolic blood 2022-05-30 104 mm[Hg] University of pressure 20:51:00 [facility] Diastolic blood 2022-05-30 58 mm[Hg] University o f pressure 20:51:00 [facility] Heart rate 2022-05-30 73 /min University of 20:51:00 [facility] Oxygen saturation 2022-05-30 92 /min University of in Arterial blood 20:51:00 [facility] by Pulse oximetry Branch Body temperature 2022-05-30 36.94 Alma Delia University of 20:48:00 [facility] Respiratory rate 2022-05-30 18 /min University of 20:48:00 [facility] Body height 2022-05-30 175.3 cm University of 20:48:00 [facility] Body weight 2022-05-30 85.367 kg University of 20:48:00 [facility] BMI 2022-05-30 27.79 kg/m2 University of 20:48:00 [facility] Systolic blood 2022-05-19 136 mm[Hg] University of pressure 21:51:00 [facility] Branch Diastolic blood 2022-05-19 78 mm[Hg] University o f pressure 21:51:00 [facility] Heart rate 2022-05-19 93 /min University of 21:51:00 [facility] Body temperature 2022-05-19 36.72 Alma Delia University of 21:51:00 [facility] Respiratory rate 2022-05-19 16 /min University of 21:51:00 [facility] Body height 2022-05-19 175.3 cm University of 21:51:00 [facility] Body weight 2022-05-19 83.008 kg University of 21:51:00 [facility] BMI 2022-05-19 27.02 kg/m2 University of 21:51:00 [facility] Oxygen saturation 2022-05-19 100 /min University of in Arterial blood 21:51:00 [facility] by Pulse oximetry Branch Systolic blood 2022-05-13 138 mm[Hg] University of pressure 23:52:00 [facility] Diastolic blood 2022-05-13 75 mm[Hg] University o f pressure 23:52:00 [facility] Heart rate 2022-05-13 80 /min University of 23:52:00 [facility] Body temperature 2022-05-13 37.22 Alma Delia University of 23:52:00 [facility] Respiratory rate 2022-05-13 20 /min University of 23:52:00 [facility] Body height 2022-05-13 175.3 cm University of 23:52:00 [facility] Body weight 2022-05-13 83.008 kg University of 23:52:00 [facility] BMI 2022-05-13 27.02 kg/m2 University of 23:52:00 [facility] Oxygen saturation 2022-05-13 100 /min University of in Arterial blood 23:52:00 [facility] by Pulse oximetry Branch Systolic blood 2022-05-11 137 mm[Hg] University of pressure 20:35:00 [facility] Diastolic blood 2022-05-11 69 mm[Hg] University o f pressure 20:35:00 [facility] Heart rate 2022-05-11 80 /min University of 20:35:00 [facility] Body height 2022-05-11 175.3 cm University of 20:35:00 [facility] Body weight 2022-05-11 83.371 kg University of 20:35:00 [facility] BMI 2022-05-11 27.14 kg/m2 University of :35:00 [facility] Systolic blood 2022-05-03 160 mm[Hg] University of pressure :10:00 [facility] Diastolic blood 2022-05-03 77 mm[Hg] University o f pressure :10:00 [facility] Heart rate 2022-05-03 79 /min University of :10:00 [facility] Body temperature 2022-05-03 37.28 Alma Delia University of :10:00 [facility] Respiratory rate 2022-05-03 18 /min University of :10:00 [facility] Body height 2022-05-03 170.2 cm University of :10:00 [facility] Body weight 2022-05-03 79.833 kg University of :10:00 [facility] BMI 2022-05-03 27.57 kg/m2 University of :10:00 [facility] Oxygen saturation 2022-05-03 99 /min University of in Arterial blood 01:10:00 [facility] by Pulse oximetry [place] Heart rate 2022-04-04 63 /min University of :11:00 [facility] Respiratory rate 2022-04-04 18 /min University of :11:00 [facility] Oxygen saturation 2022-04-04 100 /min University of in Arterial blood 22:11:00 [facility] by Pulse oximetry Branch Systolic blood 2022-04-04 147 mm[Hg] University of pressure 21:40:00 [facility] Diastolic blood 2022-04-04 65 mm[Hg] University o f pressure 21:40:00 [facility] Body temperature 2022-04-04 36.56 Alma Delia University of :40:00 [facility] Body weight 2022-03-25 84 kg University of 10:00:00 [facility] BMI 2022-03-25 25.83 kg/m2 University of 10:00:00 [facility] Body height 2022-03-11 180.3 cm University of 19:07:00 [facility] Systolic blood 2022-03-18 153 mm[Hg] University of pressure 17:45:00 [facility] Diastolic blood 2022-03-18 77 mm[Hg] University o f pressure 17:45:00 [facility] Heart rate 2022-03-18 79 /min University of 17:45:00 [facility] Body temperature 2022-03-18 36.22 Alma Delia University of 17:45:00 [facility] Oxygen saturation 2022-03-18 97 /min University of in Arterial blood 17:45:00 [facility] by Pulse oximetry Branch Respiratory rate 2022-03-18 18 /min University of 13:14:00 [facility] Body weight 2022-03-14 89.994 kg bedscale, pt University of 10:58:00 unable to stand [facility] BMI 2022-03-14 27.67 kg/m2 University of 10:58:00 [facility] Body height 2022-03-11 180.3 cm University of 19:07:00 [facility] Systolic blood 2022-02-09 116 mm[Hg] University of pressure 14:34:00 [facility] Diastolic blood 2022-02-09 60 mm[Hg] University o f pressure 14:34:00 [facility] Heart rate 2022-02-09 59 /min University of 14:34:00 [facility] Body temperature 2022-02-09 36.72 Alma Delia University of 14:34:00 [facility] Respiratory rate 2022-02-09 12 /min University of 14:34:00 [facility] Body height 2022-02-09 175.3 cm University of 14:34:00 [facility] Body weight 2022-02-09 87.499 kg University of 14:34:00 [facility] BMI 2022-02-09 28.49 kg/m2 University of 14:34:00 [facility] Oxygen saturation 2022-02-09 98 /min University of in Arterial blood 14:34:00 [place] [facility] by Pulse oximetry Branch Systolic blood 2021-10-28 148 mm[Hg] University of pressure 21:35:00 [facility] Diastolic blood 2021-10-28 74 mm[Hg] University o f pressure 21:35:00 [facility] Heart rate 2021-10-28 59 /min [facility] 21:35:00 [facility] Body temperature 2021-10-[address] [facility] 21:35:00 [facility] Respiratory rate 2021-10-28 17 /min [facility] 21:35:00 [facility] Oxygen saturation 2021-10-28 93 /min [facility] Arterial blood 21:35:00 [facility] by Pulse oximetry [place] Body height 2021-10-[address] [facility] 04:53:00 [facility] Body weight 2021-10-[address] [facility] 04:53:00 [facility] BMI 2021-10-17 32.49 kg/m2 [facility] 04:53:00 [facility] height 2021-02-02 69.25 [in_i] [facility] - 13:00:00 [facility] weight 2021-02-02 212 [lb_av] [facility] - 13:00:00 [facility] temperature 2021-02-02 98 [degF] [facility] - 13:00:00 [facility] bmi 2021-02-02 31.08 kg/m2 [facility] - 13:00:00 [facility] blood pressure 2021-02-02 122 mm[Hg] [facility] - systolic 13:00:00 [facility] blood pressure 2021-02-02 70 mm[Hg] [facility] - diastolic 13:00:00 [facility] height 2021-01-07 69.25 [in_i] [facility] - 14:00:00 [facility] weight 2021-01-07 213.2 [lb_av] [facility] - 14:00:00 [facility] temperature 2021-01-07 97.2 [degF] [facility] - 14:00:00 [facility] bmi 2021-01-07 31.25 kg/m2 [facility] - 14:00:00 [facility] oximetry 2021-01-07 95 % [facility] - 14:00:00 [facility] respiratory rate 2021-01-07 17 /min [facility] - 14:00:00 [facility] blood pressure 2021-01-07 128 mm[Hg] [facility] - systolic 14:00:00 [facility] blood pressure 2021-01-07 68 mm[Hg] [facility] - diastolic 14:00:00 [facility] height 2020-11-03 69.25 [in_i] [facility] - 15:20:00 [facility] weight 2020-11-03 218.1 [lb_av] [facility] - 15:20:00 [facility] temperature 2020-11-03 97.2 [degF] [facility] - 15:20:00 [facility] bmi 2020-11-03 31.97 kg/m2 [facility] - 15:20:00 [facility] oximetry 2020-11-03 95 % [facility] - 15:20:00 [facility] respiratory rate 2020-11-03 18 /min [facility] - 15:20:00 [facility] blood pressure 2020-11-03 138 mm[Hg] [facility] - systolic 15:20:00 [facility] blood pressure 2020-11-03 70 mm[Hg] [facility] - diastolic 15:20:00 [facility] height 2020-09-01 69.25 [in_i] [facility] - 11:30:00 [facility] weight 2020-09-01 216.9 [lb_av] [facility] - 11:30:00 [facility] temperature 2020-09-01 97.0 [degF] [facility] - 11:30:00 [facility] bmi 2020-09-01 31.8 kg/m2 [facility] - 11:30:00 [facility] oximetry 2020-09-01 96 % [facility] - 11:30:00 [facility] respiratory rate 2020-09-01 17 /min [facility] - 11:30:00 [facility] blood pressure 2020-09-01 133 mm[Hg] [facility] - systolic 11:30:00 [facility] blood pressure 2020-09-01 70 mm[Hg] [facility] - diastolic 11:30:00 [facility] height 2020-07-21 69.25 [in_i] [facility] - 09:50:00 [facility] weight 2020-07-21 214.5 [lb_av] [facility] - 09:50:00 [facility] temperature 2020-07-21 97.3 [degF] [facility] - 09:50:00 [facility] bmi 2020-07-21 31.44 kg/m2 [facility] - 09:50:00 [facility] oximetry 2020-07-21 97 % [facility] - 09:50:00 [facility] respiratory rate 2020-07-21 18 /min [facility] - 09:50:00 [facility] blood pressure 2020-07-21 135 mm[Hg] [facility] - systolic 09:50:00 [facility] blood pressure 2020-07-21 70 mm[Hg] [facility] - diastolic 09:50:00 [facility] height 2020-05-26 69.25 [in_i] [facility] - 09:00:00 [facility] weight 2020-05-26 212.7 [lb_av] [facility] - 09:00:00 [facility] temperature 2020-05-26 97.3 [degF] [facility] - 09:00:00 [facility] bmi 2020-05-26 31.18 kg/m2 [facility] - 09:00:00 [facility] oximetry 2020-05-26 97 % [facility] - 09:00:00 [facility] respiratory rate 2020-05-26 19 /min [facility] - 09:00:00 [facility] blood pressure 2020-05-26 137 mm[Hg] [facility] - systolic 09:00:00 [facility] blood pressure 2020-05-26 75 mm[Hg] [facility] - diastolic 09:00:00 [facility] height 2020-05-26 69.25 [in_i] [facility] - 09:00:00 [facility] weight 2020-05-26 212.7 [lb_av] [facility] - 09:00:00 [facility] temperature 2020-05-26 97.3 [degF] [facility] - 09:00:00 [facility] bmi 2020-05-26 31.18 kg/m2 [facility] - 09:00:00 [facility] oximetry 2020-05-26 97 % [facility] - 09:00:00 [facility] blood pressure 2020-05-26 137 mm[Hg] [facility] - systolic 09:00:00 [facility] blood pressure 2020-05-26 75 mm[Hg] [facility] - diastolic 09:00:00 [facility] Systolic blood 2022-03-16 112 mm[Hg] University of pressure 17:55:00 [facility] Diastolic blood 2022-03-16 58 mm[Hg] University o f pressure 17:55:00 [facility] Heart rate 2022-03-16 68 /min [facility] 17:55:00 [facility] Body temperature 2022-03-[address] [facility] 17:55:00 [facility] Respiratory rate 2022-03-16 18 /min [facility] 17:55:00 [facility] Oxygen saturation 2022-03-16 88 /min [facility] Arterial blood 17:55:00 [facility] by Pulse oximetry [place] Body weight 2022-03-14 [address] [facility] 10:58:00 unable to stand [facility] [place] BMI 2022-03-14 27.67 kg/m2 [facility] 10:58:00 [facility] Body height 2022-03-[address] [facility] 19:07:00 [facility] Procedures Procedure Date / Time Performing Source Performed Clinician ESOPHAGOGASTRODUODENOSCOPY 2023-01-23 Lisa Villa rsity of 12:53:00 [facility] PERCUTANEOUS ENDOSCOPIC GASTRIC 2023-01-23 Lisa Villa [place] of TUBE PLACEMENT 12:53:00 [facility] ESOPHAGOGASTRODUODENOSCOPY 2023-01-23 [facility] 12:53:00 [facility] PERCUTANEOUS ENDOSCOPIC GASTRIC 2023-01-23 Lisa Villa [place] of TUBE PLACEMENT 12:53:00 [facility] EGD (ENDO) 2023-01-[address] [facility] :09:58 [facility] EGD (ENDO) 2023[facility]01[facility]23 [facility] 12:09[facility]58 [facility] BASIC METABOLIC PANEL (NA, K, CL, 2023-01-23 [facility] of CO2, GLUCOSE, BUN, CREATININE, CA) 10:42:00 M [facility] CBC WITH DIFF 2023-01-23 [facility] of 10:42:00 M [facility] BASIC METABOLIC PANEL (NA, K, CL, 2023-01-23 [facility] of CO2, GLUCOSE, BUN, CREATININE, CA) 10:42:00 M [facility] CBC WITH DIFF 2023-01-23 [facility] of 10:42:00 M [facility] HEPATIC FUNCTION PANEL ([id number]) 2023-01-21 [facility] of (ALB,T.PRO,BILI 15:41:00 [facility] [place] [facility] T,BU/BC,ALT,AST,ALK PHOS) Branch CBC WITH DIFF 2023-01-21 [facility] of 15:41:00 [facility] PROTHROMBIN TIME / INR 2023-01-21 [facility] of 15:41:00 [facility] HEPATIC FUNCTION PANEL ([id number]) 2023-01-21 [facility] of (ALB,T.PRO,BILI 15:41:00 [place] [facility] T,BU/BC,ALT,AST,ALK PHOS) Branch CBC WITH DIFF 2023-01-21 [facility] of 15:41:00 [facility] PROTHROMBIN TIME / INR 2023-01-21 [facility] of 15:41:00 [facility] URINALYSIS 2023-01-18 Decker, [facility] of 21:27:00 [facility] URINALYSIS 2023-01-18 Decker, [facility] of 21:27:00 [facility] PHOSPHORUS 2023-01-18 Amanda [facility] of 09:45:00 [facility] MAGNESIUM 2023-01-18 Amanda [facility] of 09:45:00 [facility] BASIC METABOLIC PANEL (NA, K, CL, 2023-01-18 Amanda, Karelyyt on University of CO2, GLUCOSE, BUN, CREATININE, CA) 09:45:00 [facility] CBC WITH DIFF 2023-01-18 Amanda [facility] of 09:45:00 [facility] PHOSPHORUS 2023-01-18 Amanda, [facility] of 09:45:00 [facility] MAGNESIUM 2023-01-18 Amanda, [facility] of 09:45:00 [facility] Branch BASIC METABOLIC PANEL (NA, K, CL, 2023-01-18 Amanda, Crayt on University of CO2, GLUCOSE, BUN, CREATININE, CA) 09:45:00 [facility] Branch CBC WITH DIFF 2023-01-18 Amanda, [facility] of 09:45:00 [facility] XR KUB 2023-01-18 [facility] of 01:57:13 [facility] XR KUB 2023-01-18 [facility] of 01:57:13 [facility] XR KUB 2023-01-18 Amanda [facility] of 01:50:16 [facility] XR KUB 2023-01-18 [facility] of 01:50:16 [facility] XR ABDOMEN 1 VW 2023-01-17 [facility] of 23:26:59 [facility] XR ABDOMEN 1 VW 2023-01-17 [facility] of 23:26:59 [facility] XR ABDOMEN 1 2023-01-17 [facility] of 21:28:32 [facility] XR ABDOMEN 1 2023-01-17 [facility] of 21:28:32 [facility] Branch AMMONIA, PLASMA 2023-01-16 Skyler [facility] of 22:02:00 [facility] Branch CBC WITH DIFF 2023-01-16 Skyler [facility] of 22:02:00 [facility] AMMONIA, PLASMA 2023-01-16 Skyler [facility] of 22:02:00 [facility] Branch CBC WITH DIFF 2023-01-16 rianna [facility] of 22:02:00 [facility] Branch VITAMIN B12, LEVEL 2023-01-14 Marlene De La Vega [place] of 13:12:00 [facility] FOLATE 2023-01-14 [facility] of 13:12:00 [facility] VITAMIN B12, LEVEL 2023-01-14 [facility] [place] [facility] 13:12:00 [facility] FOLATE 2023-01-14 [facility] of 13:12:00 [facility] POCT GLUCOSE (AUTOMATED) 2023-01-14 Ken [facility]rez [facility] of 03:20:00 [facility] POCT GLUCOSE (AUTOMATED) 2023-01-14 Ken Torrez [facility] of 03:20:00 [facility] THYROID STIMULATING HORMONE 2023-01-12 Marlene De La Vega Un iversity of 10:07:00 [facility] BASIC METABOLIC PANEL (NA, K, CL, 2023-01-12 Henson, [facility] of CO2, GLUCOSE, BUN, CREATININE, CA) 10:07:00 [facility] CBC WITH DIFF 2023-01-12 [facility] of 10:07:00 [facility] THYROID STIMULATING HORMONE 2023-01-12 Marlene De La Vega Un iversity of 10:07:00 [facility] BASIC METABOLIC PANEL (NA, K, CL, 2023-01-12 [place], [facility] of CO2, GLUCOSE, BUN, CREATININE, CA) 10:07:00 [facility] CBC WITH DIFF 2023-01-12 [facility] of 10:07:00 [facility] XR ABDOMEN 2 VW 2023-01-10 [facility] 09:16:00 [facility] XR CHEST 1 VW 2023-01-10 [facility] 09:16:00 [facility] XR SKULL <4 VW 2023-01-10 [facility] 09:16:00 [facility] XR ABDOMEN 2 VW 2023-01-10 [facility] 09:16:00 [facility] XR CHEST 1 VW 2023-01-10 [facility] 09:16:00 [facility] XR SKULL <4 VW 2023-01-10 [facility] 09:16:00 Daryl Juarez [facility] URINALYSIS 2023-01-10 Tim Washington [place] of 03:34:00 [facility] COMP. METABOLIC PANEL ([id number]) 2023-01-10 Tim Washington Un iversity of 02:40:00 [facility] CBC WITH DIFF 2023-01-10 Tim Washington [place] of 02:40:00 [facility] LACTIC ACID WHOLE BLOOD 2023-01-10 Tim Washington [facility] ty of 02:39:00 [facility] CONSENT/REFUSAL FOR DIAGNOSIS AND 2023-01-10 [facility] 02:08:20 Unassigned, No [facility] XR KUB 2023-01-09 Cuba Elmore [place] of 06:22:[address] [facility] [address] ABDOMEN PELVIS W CONTRAST 2023-01-09 [place] Elmore Uni versity of 04:17:06 [facility] URINALYSIS 2023-01-09 [place] Elmore [place] 03:24:00 [facility] BASIC METABOLIC PANEL (NA, K, CL, 2023-01-09 [place] of CO2, GLUCOSE, BUN, CREATININE, CA) 03:17:00 [facility] CBC WITH DIFF 2023-01-09 [place] Elmore [place] 03:17:00 [facility] PROTHROMBIN TIME / INR 2023-01-09 [facility] 03:17:00 [facility] ACTIVATED PARTIAL THRMPLAS CRISTAL 2023-01-09 [place] Elmore U [facility] of 03:17:00 [facility] CONSENT/REFUSAL FOR DIAGNOSIS AND 2023-01-09 [facility] 02:38:46 Unassigned, No [facility] URINALYSIS 2022-12-26 Urnuly Bermudez [place] of 17:22:00 [facility] CONSENT/REFUSAL FOR DIAGNOSIS AND 2022-12-26 [facility] 16:17:06 Unassigned, No [facility] MAGNESIUM 2022-07-21 Tye Santos [place] of 08:38:00 [facility] BASIC METABOLIC PANEL (NA, K, CL, 2022-07-21 [place], Todd iel University of CO2, GLUCOSE, BUN, CREATININE, CA) 08:38:00 [facility] CBC WITH DIFF 2022-07-21 [facility] 08:38:00 [facility] N-TERMINAL PRO-BNP 2022-07-21 [facility] 08:38[facility]00 [facility] US RETROPERITONEAL COMPLETE 2022-07-20 Kale Reaves iversity of 21:33:00 [facility] TRANSTHORACIC ECHO (TTE) COMPLETE 2022-07-20 [facility] of W/ CONTRAST 14:38:00 [facility] MAGNESIUM 2022-07-20 [facility] of 08:07:00 [facility] TROPONIN I 2022-07-20 [facility] 08:07:00 [facility] BASIC METABOLIC PANEL (NA, K, CL, 2022-07-20 [facility] Todd [facility] CO2, GLUCOSE, BUN, CREATININE, CA) 08:07:00 [facility] [facility] CBC WITH DIFF 2022-07-20 [place] [facility] of 08:07:00 [facility] N-TERMINAL PRO-BNP 2022-07-20 [facility] of 08:07:00 [facility] URINE CULTURE 2022-07-19 [facility] of 23:55:00 [facility] XR SKULL <4 VW 2022-07-19 Ruperto Mcmullen [place] of 05:44:30 [facility] XR CHEST 1 VW 2022-07-19 taiwowaRuperto [place] of 05:40:29 [facility] CT ABDOMEN PELVIS WO CONTRAST 2022-07-19 Ruperto Mcmullen U niversity of 03:05:04 [facility] TROPONIN I 2022-07-19 Garcia, [facility] of 01:46:00 [facility] COMP. METABOLIC PANEL (73157) 2022-07-19 [place] Un iversity of 01:46:00 [facility] LIPID PANEL ([id number])(TOTAL 2022-07-19 Garcia, [facility] sity of CHOLESTEROL, TRIGLYCERIDES, HDL) 01:46:00 [facility] CBC WITH DIFF 2022-07-19 [place] [facility] of 01:46:00 [facility] GLYCOSYLATED HEMOGLOBIN (A1C) 2022-07-19 Ronna Garcia iversity of 01:46:00 [facility] URINALYSIS 2022-07-19 [place] [facility] of 01:46:00 [facility] N-TERMINAL PRO-BNP 2022-07-19 [facility] of 01:46:00 [facility] NOTICE OF PRIVACY PRACTICES 2022-07-18 [facility] ersity of 23:24:03 Unassigned, No [facility] CT ABDOMEN PELVIS W CONTRAST 2022-07-12 [facility] versity of 05:24:26 [facility] LIPASE 2022-07-12 [facility] 04:53:00 [facility] HEPATIC FUNCTION PANEL ([id number]) 2022-07-12 Dirk [facility] niversity of (ALB,T.PRO,BILI 04:53:00 [facility],BU/BC,ALT,AST,ALK PHOS) [place] BASIC METABOLIC PANEL (NA, K, CL, 2022-07-12 [facility] CO2, GLUCOSE, BUN, CREATININE, CA) 04:53:00 [facility] CBC WITH DIFF 2022-07-12 [facility] 04:53:00 [facility] URINALYSIS 2022-07-12 [facility] 04:53:00 [facility] CONSENT/REFUSAL FOR DIAGNOSIS AND 2022-07-12 [facility] TREATMENT 04:29:50 Unassigned, No [facility] OP CLINIC NOTES/CONSULTS 2022-06-16 Doctor [facility] of 06:01:00 Unassigned, No [facility] CT HEAD WO CONTRAST 2022-06-02 Eliot Max [place] o f 19:40:00 [facility] POCT URINALYSIS AUTO 2022-05-[address] [facility] 20:59:00 [facility] AUTHORIZATION TO RELEASE PHI TO 2022-05-30 [facility] 06:01:00 Unassigned, No [facility] REFERRAL- REQUEST/RESPONSE 2022-05-[address] [facility] [place] rsity of 06:01:00 Unassigned, No [facility] CT ABDOMEN PELVIS WO CONTRAST 2022-05-19 Kandis Vasques niversity of 23:39:00 J [facility] CONSENT/REFUSAL FOR DIAGNOSIS AND 2022-05-19 [facility] 21:38:12 Unassigned, No [facility] URINALYSIS 2022-05-13 Sherwin Cavazos [place] of 23:53:00 [facility] CONSENT/REFUSAL FOR DIAGNOSIS AND 2022-05-13 [facility] 23:18:14 Unassigned, No [facility] CONSENT/REFUSAL FOR DIAGNOSIS AND 2022-05-03 [facility] 00:56:52 Unassigned, No [facility] PHOSPHORUS 2022-04-04 Gianni Bhandari [facility] of 10:45:00 [facility] MAGNESIUM 2022-04-04 [facility] of 10:45:00 [facility] BASIC METABOLIC PANEL (NA, K, CL, 2022-04-04 Gianni Bhandari [place] of CO2, GLUCOSE, BUN, CREATININE, CA) 10:45:00 [facility] CBC WITHOUT DIFF 2022-04-04 [facility] of 10:45:00 [facility] COVID-19 (ID NOW RAPID TESTING) 2022-04-03 Gianni Bhandari [facility] of 17:38:00 [facility] LAB ONLY COVID INTERPRETATION 2022-04-03 Gianni Bhandari [facility] iversity of 17:38:00 [facility] POCT GLUCOSE (AUTOMATED) 2022-04-03 Max Mccabe of 13:16:00 [facility] PHOSPHORUS 2022-04-03 Patrick Adkins [place] of 10:05:00 [facility] MAGNESIUM 2022-04-03 Lucille [facility] of 10:05:00 [facility] BASIC METABOLIC PANEL (NA, K, CL, 2022-04-03 Lucille [facility] of CO2, GLUCOSE, BUN, CREATININE, CA) 10:05:00 [facility] CBC WITH DIFF 2022-04-03 Patrick Adkins [place] of 10:05:00 [facility] BASIC METABOLIC PANEL (NA, K, CL, 2022-04-02 Ogasacarolinea, University of CO2, GLUCOSE, BUN, CREATININE, CA) 11:22:00 Chang feliz [facility] CBC WITH DIFF 2022-04-02 [facility], [place] of 11:22:00 Chang Viera [facility] PHOSPHORUS 2022-04-01 [facility] 11:22:00 Daryl [facility] MAGNESIUM 2022-04-01 [place], [place] of 11:22:00 [facility] BASIC METABOLIC PANEL (NA, K, CL, 2022-04-01 [place], [facility] of CO2, GLUCOSE, BUN, CREATININE, CA) 11:22:00 [facility] CBC WITH DIFF 2022-04-01 [place], [facility] 11:22:00 Daryl [facility] PHOSPHORUS 2022-03-31 Av'Gregorio, [facility] 11:20:00 [facility] MAGNESIUM 2022-03-31 Av'Gregorio, [facility] 11:20:00 [facility] BASIC METABOLIC PANEL (NA, K, CL, 2022-03-31 Trina Adkins on University of CO2, GLUCOSE, BUN, CREATININE, CA) 11:20:00 [facility] CBC WITH DIFF 2022-03-31 Lucille, [facility] 11:20:00 [facility] PHOSPHORUS 2022-03-29 [place], [facility] 10:03:00 [facility] MAGNESIUM 2022-03-29 [place], [facility] 10:03:00 [facility] BASIC METABOLIC PANEL (NA, K, CL, 2022-03-29 [place], [facility] of CO2, GLUCOSE, BUN, CREATININE, CA) 10:03:00 [facility] CBC WITH DIFF 2022-03-29 [place], [place] of 10:03:00 [facility] TRANSTHORACIC ECHO (TTE) COMPLETE 2022-03-28 Trina Adkins on University of W/ CONTRAST 17:55:00 [facility] BASIC METABOLIC PANEL (NA, K, CL, 2022-03-28 [place], University of CO2, GLUCOSE, BUN, CREATININE, CA) 16:41:00 Chang Zavala tray [facility] CBC WITH DIFF 2022-03-28 [facility] of 16:41:00 [facility] PHOSPHORUS 2022-03-27 [facility] of 11:49:00 Daryl Juarez [facility] MAGNESIUM 2022-03-27 [facility] of 11:49:00 Daryl Juarez [facility] BASIC METABOLIC PANEL (NA, K, CL, 2022-03-27 [facility] of CO2, GLUCOSE, BUN, CREATININE, CA) 11:49:00 Daryl Juarez [facility] CBC WITH DIFF 2022-03-27 [facility] of 11:49:00 Daryl Juarez [facility] XR CHEST 1 VW 2022-03-26 [facility] of 14:58:00 [facility]OSPHORUS 2022-03-26 [facility] of 11:51:00 [facility] MAGNESIUM 2022-03-26 [facility] of 11:51:00 [facility] BASIC METABOLIC PANEL (NA, K, CL, 2022-03-26 [facility] of CO2, GLUCOSE, BUN, CREATININE, CA) 11:51:00 [facility] CBC WITH DIFF 2022-03-26 [facility] of 11:51:00 [facility] SODIUM 2022-03-25 [facility], [facility] of 20:29:00 [facility] XR CHEST 1 VW 2022-03-25 [facility] of 18:47:00 [facility] PHOSPHORUS 2022-03-25 [facility] 15:07:00 [facility] BASIC METABOLIC PANEL (NA, K, CL, 2022-03-25 Jarrell Michaels [place] of CO2, GLUCOSE, BUN, CREATININE, CA) 15:07:00 Shiva [facility] INTACT PTH CALCIUM GROUP 2022-03-25 [facility] of 15:07:00 [facility] IRON PANEL 2022-03-25 [facility] 15:07:00 [facility] AC PANEL 20 + LACTIC ACID 2022-03-25 Berto Guajardo [facility] of 11:28:00 [facility] BASIC METABOLIC PANEL (NA, K, CL, 2022-03-25 [facility] CO2, GLUCOSE, BUN, CREATININE, CA) 09:34:00 Chang feliz [facility] CBC WITH DIFF 2022-03-25 [facility] of 09:34:00 Chang Viera [facility] AC PANEL 20 + LACTIC ACID 2022-03-25 [facility] sity of 09:34:00 [facility] XR WRIST 3+ VW RIGHT 2022-03-24 [facility] 22:00:07 Churchjean Viera [facility] AC PANEL 20 + LACTIC ACID 2022-03-24 [facility] sity of 11:20:00 [facility] BASIC METABOLIC PANEL (NA, K, CL, 2022-03-24 [facility] CO2, GLUCOSE, BUN, CREATININE, CA) 09:11:00 [facility] CBC WITH DIFF 2022-03-24 [facility] 09:11:00 Daryl Juarez [facility] AC PANEL 20 + LACTIC ACID 2022-03-24 [facility] sity of 09:11:00 [facility] GALV ONLY - INFLUENZA A B RSV PCR 2022-03-24 [facility] 08:13:00 Daryl Larry [facility] BASIC METABOLIC PANEL (NA, K, CL, 2022-03-23 [facility] CO2, GLUCOSE, BUN, CREATININE, CA) 19:11:00 [facility] PHOSPHORUS 2022-03-23 [facility] 08:21:00 [facility] CREATINE KINASE 2022-03-23 Lucille [facility] of 08:21:00 [facility] MAGNESIUM 2022-03-23 [facility] of 08:21:00 [facility] BASIC METABOLIC PANEL (NA, K, CL, 2022-03-23 [facility] CO2, GLUCOSE, BUN, CREATININE, CA) 08:21:00 [facility] CBC WITH DIFF 2022-03-23 Lucille [facility] of 08:21:00 [facility] URINALYSIS 2022-03-23 Lucille [facility] of 08:21:00 [facility] URINE CULTURE 2022-03-23 Lucille [facility] of 08:21:00 [facility] XR CHEST 1 VW 2022-03-22 [facility] of 10:23:00 [facility] CREATINE KINASE 2022-03-[address] [facility] 08:30:00 [facility] BASIC METABOLIC PANEL (NA, K, CL, 2022-03-22 [facility] CO2, GLUCOSE, BUN, CREATININE, CA) 08:30:00 [facility] CBC WITH DIFF 2022-03-22 [facility] of 08:30:00 [facility] URINALYSIS 2022-03-22 [facility] of 07:24:00 [facility] CREATININE, URINE RANDOM 2022-03-22 Kp Marley Unive rsity of 07:24:00 [facility] UREA NITROGEN, URINE RANDOM 2022-03-22 Kp Marley Un iversity of 07:24:00 [facility] POTASSIUM, URINE RANDOM 2022-03-22 Kp [facility] of 07:24:00 [facility] SODIUM, URINE RANDOM 2022-03-22 Kp Marley Universit y of 07:24:00 [facility] XR ABDOMEN 1 2022-03-22 [facility] of 03:54:00 [facility] AC PANEL 20 + LACTIC ACID 2022-03-22 Berto Guajardo [facility] of 02:33:00 [facility] AC PANEL 20 + LACTIC ACID 2022-03-22 Berto Guajardo [facility] sity of 02:33:[address] [facility] CT ABDOMEN PELVIS WO CONTRAST 2022-03-21 Nayeli Villanueva Un iversity of 23:23:18 [facility] CT ABDOMEN PELVIS WO CONTRAST 2022-03-21 Nayeli Villanueva Un iversity of 23:23:18 [facility] EXTRA TUBE URINE 2022-03-21 Max Mccabe [place] of 22:58:00 [facility] URINE CULTURE 2022-03-21 [facility] 22:58:00 Daryl Juarez [facility] EXTRA TUBE URINE 2022-03-21 Eliot, [facility] of 22:58:00 [facility] AC PANEL 20 + LACTIC ACID 2022-03-21 Berto Guajardo [facility] sity of 22:28:00 [facility] AC PANEL 20 + LACTIC ACID 2022-03-21 Berto Guajardo [facility] sity of 22:28:00 [facility] COMP. METABOLIC PANEL ([id number]) 2022-03-21 Nayeli Villanueva Un iversity of 21:07:00 [facility] CBC WITH DIFF 2022-03-21 Kay [facility] of 21:07:00 [facility] COMP. METABOLIC PANEL ([id number]) 2022-03-21 Nayeli Villanueva Un iversity of 21:07:00 [facility] CBC WITH DIFF 2022-03-21 Kay [facility] of 21:07:00 [facility] XR CHEST 1 VW 2022-03-21 Kay [facility] of 19:05:00 [facility] XR KUB 2022-03-21 N[facility] of 19:05:00 [facility] XR CHEST 1 VW 2022-03-21 Nahomy [facility] of 19:05:00 [facility] XR KUB 2022-03-21 [facility] of 19:05:00 [facility] BLOOD CULTURE SCREEN 2022-03-21 Nahomy [facility] of 18:39:00 [facility] BLOOD CULTURE SCREEN 2022-03-21 [facility] of 18:39:00 [facility] BASIC METABOLIC PANEL (NA, K, CL, 2022-03-20 [facility] CO2, GLUCOSE, BUN, CREATININE, CA) 11:21:00 [facility] CBC WITH DIFF 2022-03-20 [facility] of 11:21:00 [facility] BASIC METABOLIC PANEL (NA, K, CL, 2022-03-20 [facility] CO2, GLUCOSE, BUN, CREATININE, CA) 11:21:00 [facility] CBC WITH DIFF 2022-03-20 [facility] of 11:21:00 [facility] XR ABDOMEN 2 VW 2022-03-19 [facility] 02:38:00 Chang Viera [facility] XR CHEST 1 VW 2022-03-19 [facility] of 02:38:00 [facility] XR ABDOMEN 2 VW 2022-03-19 [facility] 02:38:00 [facility] XR CHEST 1 VW 2022-03-19 [facility] 02:38:00 [facility] XR SKULL <4 VW 2022-03-19 [facility] 02:38:00 [facility] CT HEAD WO CONTRAST 2022-03-19 [facility] o f 01:02:57 [facility] CT HEAD WO CONTRAST 2022-03-19 [facility] o f 01:02:57 [facility] FL TIME OR (NON-REPORTABLE) 2022-03-18 [facility] 17:14:00 [facility] FL TIME OR (NON-REPORTABLE) 2022-03-18 Br[facility] ersity of 17:14:00 [facility] CEREBROSPINAL FLUID SHUNT 2022-03-18 Max Mccabe [facility] sity of INSERTION 15:05:00 [facility] CEREBROSPINAL FLUID SHUNT 2022-03-18 [facility] sity of INSERTION 15:05:00 [facility] HB ABO GROUPING 2022-03-18 [facility] 10:58:00 [facility] HB ABO GROUPING 2022-03-18 [facility] 10:58:00 [facility] BASIC METABOLIC PANEL (NA, K, CL, 2022-03-18 [facility] CO2, GLUCOSE, BUN, CREATININE, CA) 10:53:00 [facility] CBC WITH DIFF 2022-03-18 [facility] 10:53:00 [facility] PROTHROMBIN TIME / INR 2022-03-18 [facility] 10:53:00 [facility] ACTIVATED PARTIAL THRMPLAS CRISTAL 2022-03-18 trena, U niversity of 10:53:00 [facility] BASIC METABOLIC PANEL (NA, K, CL, 2022-03-18 [facility] CO2, GLUCOSE, BUN, CREATININE, CA) 10:53:00 [facility] CBC WITH DIFF 2022-03-18 [facility] 10:53:00 [facility] PROTHROMBIN TIME / INR 2022-03-18 Chema, Universit y of 10:53:00 [facility] ACTIVATED PARTIAL THRMPLAS CRISTAL 2022-03-18 Chema, U niversity of 10:53:00 [facility] MR CERVICAL SPINE WO CONTRAST 2022-03-17 Max Mccabe Un iversity of 20:25:00 [facility] MR CERVICAL SPINE WO CONTRAST 2022-03-17 Max Mccabe Un iversity of 20:25:00 [facility] COVID-19 (ID NOW RAPID TESTING) 2022-03-17 [facility] 17:34:00 [facility] LAB ONLY COVID INTERPRETATION 2022-03-17 Chema, Un iversity of 17:34:00 [facility] COVID-19 (ID NOW RAPID TESTING) 2022-03-17 [facility] 17:34:00 [facility] LAB ONLY COVID INTERPRETATION 2022-03-17 Ogtrena, Un iversity of 17:34:00 [facility] BASIC METABOLIC PANEL (NA, K, CL, 2022-03-17 [facility] CO2, GLUCOSE, BUN, CREATININE, CA) 12:12:00 [facility] BASIC METABOLIC PANEL (NA, K, CL, 2022-03-17 [facility] of CO2, GLUCOSE, BUN, CREATININE, CA) 12:12:00 [facility] CBC WITH DIFF 2022-03-17 [facility] 12:11:00 [facility] CBC WITH DIFF 2022-03-17 [facility] 12:11:00 [facility] URINALYSIS 2022-03-16 [facility] 21:55:00 [facility] URINE CULTURE 2022-03-16 [facility] 21:55:00 [facility] URINALYSIS 2022-03-16 [facility] 21:55:00 [facility] URINE CULTURE 2022-03-16 marthacarolinesara, [place] of 21:55:00 [facility] GALV ONLY - INFLUENZA A B RSV PCR 2022-03-16 [facility], [facility] 10:23:00 [facility] GALV ONLY - INFLUENZA A B RSV PCR 2022-03-16 sanya, [place] of 10:23:00 [facility] GALV ONLY - INFLUENZA A B RSV PCR 2022-03-16 Chema, [facility] 10:23:00 [facility] VITAMIN B12, LEVEL 2022-03-16 Chema, [facility] 10:17:00 [facility] VITAMIN B12, LEVEL 2022-03-16 Chema, [facility] 10:17:00 [facility] VITAMIN B1 (THIAMINE), WHOLE BLOOD 2022-03-16 Chema, [facility] 10:17:00 [facility] VITAMIN B12, LEVEL 2022-03-16 snaya, [place] of 10:17:00 [facility] VITAMIN B1 (THIAMINE), WHOLE BLOOD 2022-03-16 [facility] [place] of 10:17:00 [facility] BLOOD CULTURE SCREEN 2022-03-16 Chema, [facility] 10:06:00 [facility] BLOOD CULTURE SCREEN 2022-03-16 [facility] [place] of 10:06:00 [facility] BLOOD CULTURE SCREEN 2022-03-16 Les, [place] of 10:06:00 [facility] XR CHEST 1 VW 2022-03-16 Archiecarolinesara, [place] of 08:20:00 [facility] XR CHEST 1 VW 2022-03-16 Chema, [place] of 08:20:00 [facility] XR CHEST 1 VW 2022-03-16 Chema, [place] of 08:20:00 [facility] CBC WITH DIFF 2022-03-15 [facility] of 10:11:00 [facility] BASIC METABOLIC PANEL (NA, K, CL, 2022-03-15 [place], [facility] of CO2, GLUCOSE, BUN, CREATININE, CA) 10:11:00 [facility] BASIC METABOLIC PANEL (NA, K, CL, 2022-03-15 [place], [facility] of CO2, GLUCOSE, BUN, CREATININE, CA) 10:11:00 [facility] CBC WITH DIFF 2022-03-15 [facility] 10:11:00 [facility] BASIC METABOLIC PANEL (NA, K, CL, 2022-03-15 [place], [facility] of CO2, GLUCOSE, BUN, CREATININE, CA) 10:11:00 [facility] CBC WITH DIFF 2022-03-15 [facility] 10:11:00 [facility] IR SPINAL LUMBAR PUNCTURE 2022-03-14 Ogasaheidi, [facility] sity of DIAGNOSTIC 17:55:37 [facility] IR SPINAL LUMBAR PUNCTURE 2022-03-14 Ogasamary anna, [facility] sity of DIAGNOSTIC 17:55:37 [facility] IR SPINAL LUMBAR PUNCTURE 2022-03-14 Ogasamary anna, [facility] sity of DIAGNOSTIC 17:55:37 [facility] BODY FLUID MANUAL DIFF 2022-03-14 Patrick Adkins Universi ty of 17:42:00 [facility] CEREBROSPINAL FLUID GLUCOSE 2022-03-14 Lucille, Patrick Uni versity of 17:42:00 [facility] CEREBROSPINAL FLUID PROTEIN 2022-03-14 Av'Gregorio, Patrick Uni versity of 17:42:00 [facility] CSF CULTURE 2022-03-14 Trina Adkinson [facility] of 17:42:00 [facility] CEREBROSPINAL FLUID PROTEIN 2022-03-14 Av'Gregorio, Patrick Uni versity of 17:42:00 [facility] CEREBROSPINAL FLUID GLUCOSE 2022-03-14 Lucille, Patrick Uni versity of 17:42:00 [facility] BODY FLUID DIRECT COUNT 2022-03-14 Patrick Adkins Univers ity of 17:42:00 [facility] CSF/INSTRUMENT STERILIZER SHUNT CULTURE 2022-03-14 Lucille [facility] of 17:42:00 [facility] CSF CULTURE 2022-03-14 AvGregorio [facility] of 17:42:00 [facility] CEREBROSPINAL FLUID PROTEIN 2022-03-14 Lucille [facility] versity of 17:42:00 [facility] CEREBROSPINAL FLUID GLUCOSE 2022-03-14 AvGregorio, Norman Uni versity of 17:42:00 [facility] BODY FLUID DIRECT COUNT 2022-03-14 [facility] of 17:42:00 [facility] CSF/INSTRUMENT STERILIZER SHUNT CULTURE 2022-03-14 [facility] 17:42:00 [facility] CSF CULTURE 2022-03-14 AvGregorio [facility] of 17:42:00 [facility] ABORH CONFIRMATION (LAB ONLY) 2022-03-14 Chema, Un iversity of 10:07:00 [facility] ABORH CONFIRMATION (LAB ONLY) 2022-03-14 Chema, Un iversity of 10:07:00 [facility] ABORH CONFIRMATION (LAB ONLY) 2022-03-14 Chema, Un iversity of 10:07:00 [facility] HB ABO GROUPING 2022-03-14 [facility] 09:48:00 [facility] [facility] ABO GROUPING 2022-03-14 [facility] 09:[facility]00 [facility] HB ABO GROUPING 2022-03-14 [facility] 09:48:00 [facility] ACTIVATED PARTIAL THRMPLAS CRISTAL 2022-03-14 Chema, U niversity of 09:46:00 [facility] PROTHROMBIN TIME / INR 2022-03-14 [facility] 09:46[facility]00 [facility] BASIC METABOLIC PANEL (NA, K, CL, 2022-03-14 [facility] CO2, GLUCOSE, BUN, CREATININE, CA) 09:46:00 [facility] CBC WITH DIFF 2022-03-14 [facility] of 09:46:00 [facility] BASIC METABOLIC PANEL (NA, K, CL, 2022-03-14 marthacarolinesara, [place] of CO2, GLUCOSE, BUN, CREATININE, CA) 09:46:00 [facility] CBC WITH DIFF 2022-03-14 Ogasamary anna, [place] of 09:46:00 [facility] PROTHROMBIN TIME / INR 2022-03-14 Ogasamary ann, [facility] 09:46:00 [facility] ACTIVATED PARTIAL THRMPLAS CRISTAL 2022-03-14 Ogasawara, U niversity of 09:46:00 [facility] BASIC METABOLIC PANEL (NA, K, CL, 2022-03-14 [facility] [place] of CO2, GLUCOSE, BUN, CREATININE, CA) 09:46:00 [facility] CBC WITH DIFF 2022-03-14 trena, [place] of 09:46:00 [facility] PROTHROMBIN TIME / INR 2022-03-14 Ogasamary anna, [facility] 09:46:00 [facility] ACTIVATED PARTIAL THRMPLAS CRISTAL 2022-03-14 Luisasamary anna, U niversity of 09:46:00 [facility] COVID-19 (ID NOW RAPID TESTING) 2022-03-14 [facility] of 01:25:00 [facility] LAB ONLY COVID INTERPRETATION 2022-03-14 Chema, Un iversity of 01:25:00 [facility] COVID-19 (ID NOW RAPID TESTING) 2022-03-14 [facility] 01:25:00 [facility] LAB ONLY COVID INTERPRETATION 2022-03-14 Chema, Un iversity of :25:00 [facility] COVID-19 (ID NOW RAPID TESTING) 2022-03-14 [facility] 01:25:00 [facility] LAB ONLY COVID INTERPRETATION 2022-03-14 trena, Un iversity of :25:00 [facility] XR CHEST 2 VW 2022-03-[address] [facility] 21:38:00 [facility] XR CHEST 2 VW 2022-03-11 [facility], [facility] 21:38:00 [facility] XR CHEST 2 VW 2022-03-11 [facility], [facility] 21:38:00 [facility] BASIC METABOLIC PANEL (NA, K, CL, 2022-03-11 [facility] CO2, GLUCOSE, BUN, CREATININE, CA) 16:48:00 [facility] PROTHROMBIN TIME / INR 2022-03-11 [facility], [facility] of 16:48:00 [facility] BASIC METABOLIC PANEL (NA, K, CL, 2022-03-11 [facility] CO2, GLUCOSE, BUN, CREATININE, CA) 16:48:00 [facility] PROTHROMBIN TIME / INR 2022-03-11 [facility], [facility] of 16:48:00 [facility] BASIC METABOLIC PANEL (NA, K, CL, 2022-03-11 [facility], [facility] CO2, GLUCOSE, BUN, CREATININE, CA) 16:48:00 [facility] PROTHROMBIN TIME / INR 2022-03-11 [facility], [facility] y of 16:48:00 [facility] ND DIAGNOSTIC LUMBAR SPINAL 2022-03-11 Ruperto Mcmullen Uni versity of PUNCTURE 11:41:40 [facility] ND DIAGNOSTIC LUMBAR SPINAL 2022-03-11 Ruperto Mcmullen Uni versity of PUNCTURE 11:41:40 [facility] ND DIAGNOSTIC LUMBAR SPINAL 2022-03-11 Ruperto Mcmullen Uni versity of PUNCTURE 11:41:40 [facility] CONSENT/REFUSAL FOR DIAGNOSIS AND 2022-03-11 [facility] 08:48:26 Unassigned, No [facility] CONSENT/REFUSAL FOR DIAGNOSIS AND 2022-03-11 [facility] 08:48:26 Unassigned, No [facility] CONSENT/REFUSAL FOR DIAGNOSIS AND 2022-03-11 [facility] 08:48:26 Unassigned, No [facility] HOSPITAL ADMISSION 2022-03-11 Doctor [facility] of 06:01:00 Unassigned, No [facility] DISCLOSURE AND CONSENT, MEDICAL 2022-03-11 Doctor [place] of AND SURGICAL PROCEDURES 06:01:00 Unassigned, No [facility] dical Name Branch HOSPITAL ADMISSION 2022-03-11 Doctor [place] of 06:01:00 Unassigned, No [place] [facility] EXTERNAL PROVIDER RECORDS 2022-02-15 Doctor [facility] sity of 05:01:00 Unassigned, No [place] [facility] EXTERNAL PROVIDER RECORDS 2022-02-15 Doctor [facility] sity of 05:01:00 Unassigned, No [facility] NOTICE OF BILLING PRACTICES FOR 2022-02-[address] [facility] MEDICARE PATIENTS 14:18:39 Unassigned, No [place] [facility] PATIENT FINANCIAL POLICY 2022-02-09 Doctor Un iversity of 14:18:20 Unassigned, No [facility] [place] [facility] NO SHOW OR MISSED APPOINTMENT 2022-02-09 Doctor Un iversity of POLICY ACKNOWLEDGEMENT 14:18:01 Unassigned, No [place] [facility] CONSENT/REFUSAL FOR DIAGNOSIS AND 2022-02-09 Doctor [place] of TREATMENT 14:17:39 Unassigned, No [place] [facility] ASSIGNMENT OF BENEFITS 2022-02-09 Doctor Universit y of 14:17:19 Unassigned, No [facility] ASSIGNMENT OF BENEFITS 2022-02-09 Doctor Universit y of 14:17:19 Unassigned, No [place] [facility] DISCLOSURE AND CONSENT, MEDICAL 2022-02-09 Doctor [place] of AND SURGICAL PROCEDURES 05:01:00 Unassigned, No [facility] dical Name Branch COVID-19 (ID NOW RAPID TESTING) 2021-10-28 Richard Cano [place] of 19:23:00 [facility] LAB ONLY COVID INTERPRETATION 2021-10-28 Richard Cano iversity of 19:23:00 [facility] BASIC METABOLIC PANEL (NA, K, CL, 2021-10-26 [facility], GLUCOSE, BUN, CREATININE, CA) 10:49:00 [facility] COVID-19 (ID NOW RAPID TESTING) 2021-10-25 Adria Vickers [place] of 19:00:00 [facility] LAB ONLY COVID INTERPRETATION 2021-10-25 [facility] Emergency [facility] of 19:00:00 [facility] MAGNESIUM 2021-10-25 [facility] of 10:38:00 [facility] HEPATIC FUNCTION PANEL ([id number]) 2021-10-25 [facility] of (ALB,T.PRO,BILI 10:38:00 [facility],BU/BC,ALT,AST,ALK PHOS) [place] BASIC METABOLIC PANEL (NA, K, CL, 2021-10-25 [facility] Emergency Department [facility] of CO2, GLUCOSE, BUN, CREATININE, CA) 10:38:00 [facility] CBC WITH DIFF 2021-10-25 [facility] of 10:38:00 [facility] PROTHROMBIN TIME / INR 2021-10-25 [facility] ity of 10:38:00 [facility] MAGNESIUM 2021-10-24 Naldo [facility] of 10:22:00 [facility] BASIC METABOLIC PANEL (NA, K, CL, 2021-10-24 Megan Hitchcock [facility] of CO2, GLUCOSE, BUN, CREATININE, CA) 10:22:00 [facility] CBC WITH DIFF 2021-10-24 Naldo [facility] of 10:22:00 [facility] POCT GLUCOSE (AUTOMATED) 2021-10-24 Beatriz Steel [facility] sity of 00:09:00 A [facility] CEREBROSPINAL FLUID PROTEIN 2021-10-21 Naldo [facility] ersity of 22:45:00 [facility] CEREBROSPINAL FLUID GLUCOSE 2021-10-21 Naldo [facility] ersity of 22:45:00 [facility] BODY FLUID DIRECT COUNT 2021-10-21 Milad Hitchcock [facility] ty of 22:45:00 [facility] CSF/INSTRUMENT STERILIZER SHUNT CULTURE 2021-10-21 [facility] of 22:45:00 [facility] FUNGUS (ROUTINE) CULTURE 2021-10-21 Milad Hitchcock [facility] ity of 22:45:00 [facility] EXTRA TUBE CSF 2021-10-21 Juani Weinstein [place] of 22:45:00 [facility] CSF CULTURE 2021-10-21 Naldo [facility] of 22:45:00 [facility] MAGNESIUM 2021-10-20 Naldo [facility] of 08:38:00 [facility] BASIC METABOLIC PANEL (NA, K, CL, 2021-10-20 Megan Hitchcock [facility] of CO2, GLUCOSE, BUN, CREATININE, CA) 08:38:00 [facility] CBC WITH DIFF 2021-10-20 Naldo [facility] of 08:38:00 [facility] MISCELLANEOUS SEND OUT TEST 2021-10-20 [facility] 08:38:00 [facility] THYROID PEROXIDASE (TPO) AB 2021-10-20 [facility] of 08:38:00 [facility] MR BRAIN WO CONTRAST 2021-10-20 Vickers, [facility] y of 02:09:16 [facility] TRANSTHORACIC ECHO (TTE) COMPLETE 2021-10-18 [facility] Emergency Department [facility] of 13:42:10 [facility] MAGNESIUM 2021-10-18 [facility] of 09:35:00 [facility] BASIC METABOLIC PANEL (NA, K, CL, 2021-10-18 [facility] of CO2, GLUCOSE, BUN, CREATININE, CA) 09:35:00 [facility] CBC WITH DIFF 2021-10-18 [facility] of 09:35:00 [facility] ELECTROENCEPHALOGRAM 2021-10-18 rob [facility] y of 00:00:00 [facility] URINE CULTURE 2021-10-17 [facility] of 19:13:00 [facility] AMMONIA, PLASMA 2021-10-17 [facility] of 19:07:00 [facility] URINE DRUG (LCMSMS) - 2021-10-17 Vickers, [facility] ty of COMPREHENSIVE DRUG PANEL 19:07:00 [facility] XR BONE SURVEY 2021-10-17 Vickers, [facility] of 15:36:00 [facility] XR CHEST 1 VW 2021-10-17 [facility] Emergency [facility] of 15:36:00 [facility] XR KUB 2021-10-17 [facility] of 15:36:[address] [facility] [address] ABDOMEN PELVIS WO CONTRAST 2021-10-17 [facility] of 14:14:11 [facility] VITAMIN B6, PLASMA 2021-10-17 [facility] of 11:49:00 [facility] HB ECG ROUTINE & RHYTHM STRIP 2021-10-17 Ruperto Mcmullen niversity of 11:41:49 [facility] CREATINE KINASE 2021-10-17 [facility] of 11:29:00 [facility] VITAMIN B12, LEVEL 2021-10-17 [facility] 11:29:00 [facility] FOLATE 2021-10-17 [facility] of 11:29:00 [facility] HEPATIC FUNCTION PANEL ([id number]) 2021-10-17 [facility] of (ALB,T.PRO,BILI 11:29:00 [facility],BU/BC,ALT,AST,ALK PHOS) [place] BASIC METABOLIC PANEL (NA, K, CL, 2021-10-17 [facility] of CO2, GLUCOSE, BUN, CREATININE, CA) 11:29:00 [facility] CBC WITH DIFF 2021-10-17 [facility] of 11:29:00 [facility] VITAMIN B1 (THIAMINE), WHOLE BLOOD 2021-10-17 [facility] of 11:29:00 [facility] HB ECG ROUTINE & RHYTHM STRIP 2021-10-17 [facility] 06:18:05 [facility] XR STROKE CHEST 1 VW 2021-10-17 Ruperto Mcmullen [place] of 06:14:35 [facility] URINE DRUG (IMMUNOASSAY) - 2021-10-17 [facility] versity of COMPREHENSIVE DRUG SCREEN 06:04:00 [facility] URINALYSIS 2021-10-17 Ruperto Mcmullen [place] of 06:04:[address] [facility] [address] STROKE HEAD WO CONTRAST 2021-10-17 Ruperto Mcmullen [facility] ersity of 05:53:[address] [facility] [address] STROKE ANGIOGRAM HEAD 2021-10-17 Ruperto Mcmullen [facility] sity of 05:53:[address] [facility] [address] STROKE ANGIOGRAM NECK 2021-10-17 Ruperto Mcmullen [facility] sity of 05:53:[address] [facility] [address] STROKE PERFUSION W CONTRAST 2021-10-17 Ruperto Mcmullen [place] of 05:53:01 [facility] COVID-19 (ID NOW RAPID TESTING) 2021-10-17 Ruperto Mcmullen [place] of 05:35:00 [facility] LAB ONLY COVID INTERPRETATION 2021-10-17 Ruperto Mcmullen niversity of 05:35:00 [facility] MAGNESIUM 2021-10-17 Ruperto Mcmullen [place] of 04:55:00 [facility] TROPONIN I 2021-10-17 Ruperto Mcmullen [place] of 04:55:00 [facility] BASIC METABOLIC PANEL (NA, K, CL, 2021-10-17 Ruperto Mcmullen [place] of CO2, GLUCOSE, BUN, CREATININE, CA) 04:55:00 [facility] CBC WITHOUT DIFF 2021-10-17 Ruperto Mcmullen [place] of 04:55:00 [facility] PROTHROMBIN TIME / INR 2021-10-17 [facility] Mc[facility]ullen [facility] of 04:55:00 [facility] ACTIVATED PARTIAL THRMPLAS CRISTAL 2021-10-17 Ruperto Mcmullen [place] of 04:55:00 [facility] NOTICE OF PRIVACY PRACTICES 2021-10-17 [facility] ersity of 04:49:54 Unassigned, No [facility] HB ECG ROUTINE & RHYTHM STRIP 2021-10-17 Ruperto Mcmullen niversity of 04:48:12 [facility] POCT GLUCOSE (AUTOMATED) 2021-10-17 [facility] ity of 04:46:00 Unassigned, No [facility] CONSENT/REFUSAL FOR DIAGNOSIS AND 2021-10-17 [facility] of TREATMENT 04:45:39 Unassigned, No [facility] AGREEMENTS AUTHORIZATIONS AND 2021-10-16 Doctor Un iversity of IRREVOCABLE ASSIGNMENTS (FORM 05:01:00 Unassigned, No [facility] Plan of Care Planned Activity Planned Date Details Comments Source Future Scheduled 2023-02-15 Screening for [facility] Test 09:31:39 malignant neoplasm of colon (procedure) [code = 671571128] Future Scheduled 2023-02-15 Screening for [facility] Test 09:31:39 malignant neoplasm of colon (procedure) [code = 055567064] Future Scheduled 2023-02-15 Screening for [facility] Test 09:31:39 malignant neoplasm of colon (procedure) [code = 549921911] Future Scheduled 2023-02-15 COVID-19 VACCINE (#1) [facility] Test 09:31:39 [code = COVID-19 VACCINE (#1)] Future Scheduled 2023-02-15 65+ PNEUMOCOCCAL [facility] Test 09:31:39 VACCINE (1 - PCV) [code = 65+ PNEUMOCOCCAL VACCINE (1 - PCV)] Future Scheduled 2023-02-15 Hepatitis C screening [facility] Test 09:31:39 (procedure) [code = 109923037] Future Scheduled 2023-02-15 Screening for [facility] Test 09:31:39 malignant neoplasm of colon (procedure) [code = 674608152] Future Scheduled 2023-02-15 Screening for [facility] Test 09:31:39 malignant neoplasm of colon (procedure) [code = 079067930] Future Scheduled 2023-02-15 SHINGLES VACCINES ([address] [facility] Test 09:31:39 of 2) [code = SHINGLES VACCINES (1 of 2)] Future Scheduled 2023-02-15 HEPATITIS B VACCINES Met [facility] Test 09:31:39 (1 of 3 - Risk 3-dose series) [code = HEPATITIS B VACCINES (1 of 3 - Risk 3-dose series)] Future Scheduled 2023-02-15 RSV VACCINES > [address] YR [address] [facility] Test 09:31:39 (1 - 1-dose 60+ series) [code = RSV VACCINES > 60 YR (1 - 1-dose 60+ series)] Future Scheduled 2023-02-15 INFLUENZA VACCINE (#1) [facility] Test 09:31:39 [code = INFLUENZA VACCINE (#1)] Future Scheduled 2022-03-02 HEPATITIS B VACCINES Met [facility] Test 14:01:18 (1 of 3 - 3-dose series) [code = HEPATITIS B VACCINES (1 of 3 - 3-dose series)] Future Scheduled 2022-03-02 COVID-19 VACCINE (#1) [facility] Test 14:01:18 [code = COVID-19 VACCINE (#1)] Future Scheduled 2022-03-02 65+ [facility]AL [facility] 14:01:18 VACCINE (1 - PCV) [code = 65+ PNEUMOCOCCAL VACCINE (1 - PCV)] Future Scheduled 2022-03-02 Hepatitis C screening [facility] Test 14:01:18 (procedure) [code = 578127314] Future Scheduled 2022-03-02 COLONOSCOPY SCREENING [facility] Test 14:01:18 [code = COLONOSCOPY SCREENING] Future Scheduled 2022-03-02 SHINGLES VACCINES ([address] [facility] Test 14:01:18 of 2) [code = SHINGLES VACCINES (1 of 2)] Future Scheduled 2022-03-02 INFLUENZA VACCINE Method [facility] Test 14:01:18 [code = INFLUENZA VACCINE] Encounters Start End Encounter Admission Attending Care Care Encounter Source Date/Time Date/Time Type Type Clinicians Facility Department ID 2022-02-18 [id number] Univers 07:46:08 MAX wagner [facility] 2021-05-26 Outpatient Tate, [facility] Common 13:56:33 Dwight [id number] [facility] 2021-05-26 Outpatient Tate, [facility] Common 13:47:39 Dwight [address] [facility] 2021-05-26 Outpatient Tate, [facility] Common 13:22:07 Dwight [id number] [facility] 2021-05-26 Outpatient Tate, [facility] Common 12:54:37 Dwight [id number] [facility] 2021-05-26 Outpatient Tate, [facility] Common 12:40:48 Dwight [id number] [facility] 2021-05-26 Outpatient Tate, [facility] [id number] Common 12:25:17 Dwight 90133 [facility] 2021-05-26 [facility] [id number] Common 12:23:22 Ashley 91786 [facility] 2021-05-26 Outpatient So, [facility] [id number] Common 11:31:54 Ashley [id number] [facility] 2021-05-26 Outpatient So, [facility] [id number] Common 11:05:19 Ashley [address]6897 [facility] 2021-05-26 Outpatient So, [facility] [id number] Common 11:02:17 Ashley 11424 [facility] 2021-05-26 Outpatient So, [facility] [id number] Common 11:02:16 Ashley [id number] [facility] 2023-03-01 2023-03-01 [facility]patient [facility] [id number] Univers 12:15:00 12:15:00 MAX ity [facility] 2023-01-26 2023-01-26 Transition YONATHAN Garcia [id number] Univers 00:00:00 00:00:00 of Care Rahat SANDERSON [id number] ity CARLITA [id number] [facility] [id number] [address] 2023-01-10 2023-01-25 Inpatient X SHAN [facility] [id number] Univers 03:04:00 18:45:00 KEN ity [facility] 2023-01-10 2023-01-25 [facility] Skyler Kyle [facility] [id number] Univers 03:04:00 18:45:00 Encounter Ken Torrez [facility] [id number] ity Caryn Ross 4.2.7.2.686 [place] Karina Disla [id number] [address] ([facility]) 2023-01-23 2023-01-23 Surgery [facility] [id number] Univers 08:00:00 09:23:00 Lisa HEALTH [id number] it [place]2.686 [place] [id number] [address] ([facility]) 2023-01-09 2023-01-10 Emergency X JAMMIE, [facility] ERT [id number] Univers 21:09:00 02:29:00 TIM itshadi [facility] 2023-01-09 2023-01-10 Emergency [facility] [id number] Univers 21:09:00 02:29:00 Tim CHOUDHARY [id number] i ty of [place] 4.2.7.2.686 [facility] [id number] [address] 2023-01-10 2023-01-10 Telephone Eliot [facility] [id number] Univers 00:00:00 00:00:00 Max HEALTH [id number] it [place]2.[place] [id number] [address] OFFICE BUILDING 2023-01-10 2023-01-10 Telephone MELCHOR Martinez [id number] Univers 00:00:00 00:00:00 Alma TAVO 350.1.13.10 it y of HOSPITAL 4.2.7.2.686 Nilo as [id number] [place] [address] Branch 2023-01-08 2023-01-09 Emergency X RAMÍREZ [facility] ERT [id number] Univers 21:53:00 01:49:00 CUBA ity [facility] 2023-01-08 2023-01-[address] [facility] [id number] Univers 21:53:00 01:49:00 [place] CHOUDHARY 350.1.13.10 i ty [facility] 4.2.7.2.686 [facility] [id number] [address] 2023-01-05 2023-01-05 Patient Doctor [facility] [id number] Univers 00:00:00 00:00:00 Secure Msg UnassignedShadi HEALTH 350.1.13.10 ity of [place] CLINICS 4.2.7.2.686 [place] [id number] [facility] [address] 2022-12-28 2022-12-28 Office WENDY Pichardo [id number] Univers 11:30:00 12:00:00 Visit Dejuan Johnston [facility] 350.1.13.10 i ty of CLINICS 4.2.7.2.686 [place] [id number] [facility] [address] 2022-12-28 2022-12-28 Outpatient R KYLEE [facility] [id number] Univers 11:30:00 11:30:00 DEJUAN [facility] 2022-12-28 2022-12-28 Telephone WENDY Pichardo [id number] Univers 00:00:00 00:00:00 Dejuan Johnston [facility] 350.1.13.10 i ty of CL[place]ICS 4[place]2.[place].2.[place] [id number] [address] 2022-12-27 2022-12-27 Outpatient [facility] [id number] Univers 11:30:00 11:30:00 RANDI wagner o f [facility] 2022-12-26 2022-12-26 Emergency X AIDAN, K [facility] ERT [id number] Univers 11:35:00 14:27:00 ity [facility] 2022-12-26 2022-12-26 Emergency Aidan, K [facility] [id number] Univers 11:35:00 14:27:00 Nita CHOUDHARY 350.1.13.10 i ty of [place] 4.2.7.2.686 [place] [id number] [facility] [address] 2022-12-26 2022-12-[address] [facility] [id number] [id number] Univers 00:00:00 00:00:00 [facility] 350.1.13.10 i ty of [place]2.[place] [id number] [address] OFFICE BUILDING 2022-11-16 2022-11-16 Outpatient R SHAN [facility] [id number] Univers 11:30:00 11:45:30 RANDI wagner o kaleigh [facility] 2022-11-16 2022-11-[address] [facility] 1.2.840.114 [id number] Univers 11:30:00 11:45:30 Visit Randi CHOUDHARY 350.1.13.10 it[facility] [place] [phone] Ne [address] 2022-10-11 2022-10-11 Outpatient [facility] [id number] Univers 10:00:00 10:00:00 RANDI curry [facility] 2022-10-10 2022-10-10 Outpatient R [facility] [id number] Univers 13:45:00 13:45:00 RANDI curry [facility] 2022-10-07 2022-10-07 Outpatient R KATIE [facility] [id number] Univers 13:00:00 13:49:49 NICOLAS lichashadi [facility] 2022-10-07 2022-10-07 Nurse Nurse, [facility] Surgery [facility] 1.2. 840.114 [id number] Univers 13:00:00 13:49:49 Visit Nicolas Wilson 350.1.13.10 ity [facility] [place] [phone] Ne dical [address] 2022-09-14 2022-09-14 Outpatient R [facility] [id number] Univers 10:15:00 11:06:26 MAX ity [facility] 2022-09-14 2022-09-[address] [facility] 1.2.840.114 [id number] Univers 10:15:00 11:06:26 Visit [facility] 350.1.13.10 it y of [place] [phone] [facility] [address] OFFICE BUILDING 2022-09-05 2022-09-05 Outpatient R KATIE [facility] [id number] Univers 13:00:00 13:53:07 [facility] 2022-09-05 2022-09-05 Nurse Nurse, Adc Surgery [facility] 1.2. 840.114 [id number] Univers 13:00:00 13:53:07 Visit Katie Nicolas JUANREBEKA 350.1.13.10 ity [facility] [place] [phone] Ne dicar NAL 204 [facility] 2022-08-08 2022-08-08 Outpatient R [facility] [id number] Univers 16:30:00 17:17:42 RANDI wagner o f [facility] 2022-08-08 2022-08-[address] [facility] 1.2.840.114 [id number] Univers 16:30:00 17:17:42 Visit Randi CHOUDHARY 350.1.13.10 ity of [facility] [place] [id number] [address] 2022-08-03 2022-08-03 Outpatient [facility] [id number] Univers 13:30:00 13:30:00 MAX [facility] 2022-07-25 2022-07-25 Outpatient R [facility] [id number] Univers 13:00:00 13:00:00 [facility] 2022-07-22 2022-07-22 Transition YONATHAN Macdonald 1.2.840.114 10 [id number] Univers 00:00:00 00:00:00 of Care Amy SANDERSON 350.1.13.10 i ty of [id number] [place] [address] [address] 2022-07-18 2022-07-21 Inpatient X AMANDEEP [facility] [id number] Univers 18:30:00 16:36:00 MICHAEL wagner [facility] 2022-07-18 2022-07-21 Hospital Cuba Elmore [facility] 1.2.840.11 4 [id number] Univers 18:30:00 16:36:00 Encounter Ruperto Mcmullen KENRICK 350.1.13.1 0 ity of Michael Bernstein 4.2.7.2.686 [facility] [id number] [place] [address] [place] 2022-07-14 2022-07-14 Ancillary Janet Dailey [facility] 1.2. 840.114 [id number] Univers 13:45:00 14:30:00 Visit Herbie Juares 350.1.13.10 ity of [place] 4.2.7.2.686 [facility] [phone] Ne dical [facility] [address] BUILDING 2022-07-11 2022-07-12 Emergency X STUART [facility] ERT [id number] Univers 23:26:00 03:29:00 SEBASTIEN [facility] 2022-07-11 2022-07-12 Emergency Dirk [facility] 1.2.365.043 [id number] Univers 23:26:00 03:29:00 Sherwin CHOUDHARY 350.1.13.10 i ty of [place] 4.2.7.2.686 [facility] [phone] [place] [address] [place] 2022-07-08 2022-07-08 Patient Doctor [facility] 1.2.840.114 [id number] Univers 00:00:00 00:00:00 Secure Msg Unassigned, HEALTH 350.1.13.10 ity of [place] 4.2.7.2.686 [facility] [phone] [place] [address] [address] OFFICE BUILDING 2022-07-07 2022-07-07 Outpatient R HERBIE JUARES [facility] [id number] Univers 15:15:00 16:46:52 HERBIE JUARES shadi [facility] 2022-07-07 2022-07-07 Ancillary Rach Interiano [facility] 1.2.84 0.114 [id number] Univers 15:15:00 16:00:00 Visit Herbie Juares 350.1.13.10 ity [facility] [place] [id number] Ne dical NAL 179 [facility] 2022-06-27 2022-06-27 Outpatient R SHAN [facility] [id number] Univers 13:00:00 13:49:57 RANDI hurty o f [facility] 2022-06-27 2022-06-27 Nurse Nurse, Adc Surgery [facility] 1.2. 840.114 [id number] Univers 13:00:00 13:49:57 Visit Torrez, Randi CHOUDHARY 350.1.13. 10 ity of [place] [id number] Ne dical NAL 204 [facility] 2022-06-16 2022-06-16 Ancillary Rach Interiano [facility] 1.2.84 0.114 [id number] Univers 15:15:00 16:07:20 Visit Herbie Juares 350.1.13.10 ity of [facility] 4.2.[place] [id number] Ne dical NAL 179 [facility] 2022-06-16 2022-06-16 Outpatient R JUARES [facility] [id number] Univers 15:15:00 16:07:20 HERBIE wagner [facility] 2022-06-16 2022-06-16 Orders Doctor ROCHE 1.2.840.114 [id number] Univers 00:00:00 00:00:00 Only Unassigned, TAVO 350.1.13.10 ity of [place] [facility] 4.2.7.2.686 [place] as [id number] [address] 2022-06-14 2022-06-14 Outpatient R DORON [facility] [id number] Univers 14:00:00 15:41:48 TIKA wagner [facility] 2022-06-14 2022-06-14 Office Doron [facility] 1.2.498.314 [id number] Univers 14:00:00 15:41:48 Visit Tika CHOUDHARY 350.1.13.10 i ty of [facility] 4.2.[place]2.[place] [id number] Ne dical [facility] 188 [facility] 2022-06-02 2022-06-02 Outpatient R [facility] [id number] Univers 13:26:15 23:59:00 MAX ity of [facility] 2022-06-02 2022-06-[address] [facility] 1.2.203.966 [id number] Univers 13:26:15 23:59:00 Encounter [facility] 350.1.13.10 it[place] of [place] [id number] [facility] [address] ([facility]) 2022-06-02 2022-06-[address] [facility] 1.2.840.114 [id number] Univers 00:00:00 00:00:00 Outreach Nano CHOUDHARY 350.1.13.10 ity of [place] [id number] Ne dical NAL 204 [facility] 2022-05-30 2022-05-[address] [facility] 1.2.840.114 [id number] Univers 14:45:00 16:07:37 Visit Randi CHOUDHARY 350.1.13.10 ity of [facility] 4.2.[place].2.[place] [id number] Ne dical [facility] 204 [facility] 2022-05-30 2022-05-30 Outpatient R [facility] [id number] Univers 14:45:00 16:07:37 RANDI bernard o f [facility] 2022-05-30 2022-05-30 Orders Doctor ROCHE 1.2.840.114 [id number] Univers 00:00:00 00:00:00 Only Unassigned, TAVO 350.1.13.10 ity of [place] HOSPITAL 4.2.7.2.686 [place] as [phone] [facility] [address] 2022-05-27 2022-05-27 Orders Doctor ROCHE 1.2.840.114 [id number] Univers 00:00:00 00:00:00 Only Unassigned, TAVO 350.1.13.10 ity of [place] HOSPITAL 4.2.7.2.686 [place] [phone] [facility] [address] 2022-05-19 2022-05-[address] [facility] ERT [id number] Univers 15:52:00 19:31:00 KANDIS ity [facility] 2022-05-19 2022-05-[address] [facility] 1.2.840.114 [id number] Univers 15:52:00 19:31:00 Kandis CHOUDHARY 350.1.13.10 ity [facility] [place].2.7.2.[place] [phone] [facility] [address] [place] 2022-05-19 2022-05-19 Ancillary Rach Interiano [facility] 1.2.84 0.114 [id number] Univers 15:15:00 16:00:00 Visit Herbie Juares 350.1.13.10 ity [facility] 4.2.7.2.[place] [facility] [phone] Ne dical NAL 179 [facility] 2022-05-19 2022-05-19 Outpatient Sarath JUARES [facility] [id number] Univers 15:15:00 15:15:00 HERBIE [facility] 2022-05-18 2022-05-18 Outpatient Sarath MCCABE [facility] [id number] Univers 14:30:00 14:30:00 MAX [facility] 2022-05-14 2022-05-14 Patient Doctor MELCHOR 1.2.840.114 [id number] Univers 00:00:00 00:00:00 Secure Msg Unassigned, TAVO 350.1.13.10 ity of [place] [facility] 4.2.7.2.686 [place] [id number] [facility] [address] 2022-05-13 2022-05-13 Emergency X DIRK [facility] ERT [id number] Univers 17:54:00 18:52:00 CYNISE ity [facility] 2022-05-13 2022-05-[address] [facility] 1.2.440.769 [id number] Univers 17:54:00 18:52:00 Sherwin CHOUDHARY 350.1.13.10 i ty of [facility] 4.2.[place].2.[place] [id number] [place] [address] [place] 2022-05-13 2022-05-13 Patient Doctor MELCHOR 1.2.840.114 [id number] Univers 00:00:00 00:00:00 Secure Msg Unassigned, TAVO 350.1.13.10 ity of [place] HOSPITAL 4.2.7.2.686 [place] [id number] [place] [address] [address] 2022-05-13 2022-05-13 Patient Doctor MELCHOR 1.2.840.114 [id number] Univers 00:00:00 00:00:00 Secure Msg Unassigned, TAVO 350.1.13.10 ity of [place] HOSPITAL 4.2.7.2.686 [place] [id number] [address] 2022-05-11 2022-05-[address] [facility] 1.2.840.114 [id number] Univers 14:15:00 14:30:00 Visit [facility] 350.1.13.10 it y [place] [id number] [address] OFFICE BUILDING 2022-05-11 2022-05-11 Outpatient R ELIOT [facility] [id number] Univers 14:15:00 14:15:00 MAX wagner [facility] 2022-05-02 2022-05-[address] [facility] ERT [id number] Univers 19:15:00 21:49:00 SU wagner [facility] 2022-05-02 2022-05-[address] [facility] 1.2.983.968 [id number] Univers 19:15:00 21:49:00 Su CHOUDHARY 350.1.13.10 ity of [place] 4.2.7.2.686 [place] [facility] [id number] [address] 2022-04-28 2022-04-[address] [facility] 1.2.840.114 [id number] Univers 00:00:00 00:00:00 [facility] 350.1.13.10 it y of [place].2.[place] [id number] [address] OFFICE BUILDING 2022-04-05 2022-04-[address] [facility] 1.2.840.114 [id number] Univers 00:00:00 00:00:00 Max [facility] 350.1.13.10 it y of [place].2.[place] [id number] [address] OFFICE BUILDING 2022-03-11 2022-04-[address] [facility] SNS [id number] Univers 03:38:00 17:15:00 MAX ity of [facility] 2022-03-11 2022-04-04 Hospital Hector Chatterjee 1.2.840.11 4 [id number] Univers 03:38:00 17:15:00 Encounter Max Mccabe 350.1.13.10 ity of HOSPITAL 4.2.7.2.686 [place] [id number] [facility] [address] 2022-03-18 2022-03-18 Surgery RAF MccabeNIE 1.2.840.114 [id number] Univers 09:00:00 11:47:00 Max VO 350.1.13.10 it y of HOSPITAL 4.2.7.2.686 [place] [id number] [facility] [address] 2022-03-15 2022-03-15 Telephone Natalie, 1.2.840.3 [id number] Univers 00:00:00 00:00:00 Norma 26531.1.1 ity of 3.104.2.7 [place] .3.878076 Medica l .[address] 2022-03-11 2022-03-11 Travel 1.2.840.1 1.2.713.784 [id number] Univers 00:00:00 00:00:00 71428.1.1 350.1.13.10 ity of 3.104.2.7 4[place].3.698 [place] .3.487217 084.8 Medica l .[address] 2022-02-15 2022-02-15 Orders Doctor 1.2.840.2 [id number] Univers 00:00:00 00:00:00 Only Unassigned, 16102.1.1 ity of [place] 3.104.2.7 [place] .3.194985 Medica l .[address] 2022-02-11 2022-02-11 Letter Eliot, 1.2.840.0 [id number] Univers 00:00:00 00:00:00 (Out) Max 86097.1.1 ity of 3.104.2.7 [place] .3.376632 Medica l .[address] 2022-02-10 2022-02-10 Telephone Eliot, 1.2.840.7 [id number] Univers 00:00:00 00:00:00 Max 78960.1.1 ity of 3.104.2.7 [place] .3.737103 Medica l .[address] 2022-02-09 2022-02-09 Outpatient R ELIOT, [facility] [id number] Univers 09:30:00 14:41:33 MAX ity of [facility] 2022-02-09 2022-02-09 Office Eliot, 1.2.840.5 [id number] Univers 09:30:00 14:41:33 Visit Max 13518.1.1 ity of 3.104.2.7 [place] .3.886447 Medica l .[address] 2022-02-09 2022-02-09 Orders Doctor 1.2.840.1 [id number] Univers 00:00:00 00:00:00 Only Unassigned, 55874.1.1 ity of [place] 3.104.2.7 [place] .3.430596 Medica l .[address] 2022-02-09 2022-02-09 Telephone Eliot, 1.2.840.6 [id number] Univers 00:00:00 00:00:00 Mxa 49313.1.1 ity of 3.104.2.7 [place] .3.988584 Medica l .[address] 2022-02-09 2022-02-09 Travel 1.2.840.1 1.2.948.750 [id number] Univers 00:00:00 00:00:00 46678.1.1 350.1.13.10 ity of 3.104.2.7 4[place].3.698 [place] .3.758887 084.8 Medica l .8 Branch 2021-12-30 2021-12-30 Telephone Eliot, 1.2.840.5 [id number] Univers 00:00:00 00:00:00 Max 88414.1.1 ity of 3.104.2.7 [place] .3.778753 Medica l .8 [address] 2021-10-16 2021-10-28 Inpatient X [facility] [id number] Univers 23:49:00 19:00:00 ABIGAIL ity of [facility] 2021-10-16 2021-10-28 [facility] Ruperto Mcmullen 1.2.840. 114 [id number] Univers 23:49:00 19:00:00 Encounter Beatriz Steel 350.1.13. 10 ity of [facility] 4.2.7.2.686 [place] [id number] [facility] [address] 2021-02-02 2021-02-02 OFFICE STLMLC STLMLC [id number] Co mmon 00:00:00 00:00:00 VISIT Spirit ESTAB PT - CHI LEVEL 4 [facility] 2021-01-07 2021-01-07 OFFICE STLMLC STLMLC [id number] Co mmon 00:00:00 00:00:00 VISIT Spirit ESTAB PT - CHI LEVEL 4 [facility] 2020-12-16 2020-12-16 (TEL) STLMLC STLMLC [id number] Co mmon 00:00:00 00:00:00 Spirit - CHI [facility] 2020-11-06 2020-11-06 (TEL) STLMLC STLMLC [id number] Co mmon 00:00:00 00:00:00 [facility] 2020-11-03 2020-11-03 (HOSP F/U) STLMLC STLMLC [id number] Common 00:00:00 00:00:00 [facility] 2020-10-26 2020-10-26 (TEL) STLMLC STLMLC [id number] Co mmon 00:00:00 00:00:00 [facility] 2020-10-23 2020-10-23 (TEL) STLMLC STLMLC [id number] Co mmon 00:00:00 00:00:00 [facility] 2020-10-16 2020-10-16 (TEL) STLMLC STLMLC [id number] Co mmon 00:00:00 00:00:00 [facility] 2020-10-05 2020-10-05 (TEL) STLMLC STLMLC [id number] Co mmon 00:00:00 00:00:00 [facility] 2020-09-08 2020-09-08 (TEL) STLMLC STLMLC [id number] Co mmon 00:00:00 00:00:00 [facility] 2020-09-01 2020-09-01 OFFICE STLMLC STLMLC [id number] Co mmon 00:00:00 00:00:00 VISIT [facility] LEVEL 5 [facility] 2020-08-25 2020-08-25 (TEL) STLMLC STLMLC [id number] Co mmon 00:00:00 00:00:00 [facility] 2020-08-14 2020-08-20 Inpatient [facility], [facility] [id number] [place] [address] 00:00:00 00:00:00 [facility] 2020-08-19 2020-08-19 (TEL) STLMLC STLMLC [id number] Co mmon 00:00:00 00:00:00 [facility] 2020-07-21 2020-07-21 OFFICE STLMLC STLMLC [id number] Co mmon 00:00:00 00:00:00 VISIT Spirit ESTAB PT - CHI LEVEL 4 [facility] 2020-05-26 2020-05-26 OFFICE STLMLC STLMLC [id number] Co mmon 00:00:00 00:00:00 VISIT Spirit ESTAB PT - CHI LEVEL 4 [facility] 2020-05-26 2020-05-26 SUB ANNUAL STLMLC STLMLC [id number] Common 00:00:00 00:00:00 MCR Spirit WELLNESS - CHI VISIT [facility] 2020-02-19 2020-02-19 (TEL) STLMLC STLMLC [id number] Co mmon 00:00:00 00:00:00 Spirit - CHI [facility] 2019-10-29 2019-10-29 Outpatient [facility] [id number] Common 14:45:00 14:45:[address] [facility] [address] [facility] 2019-10-18 2019-10-18 Outpatient [facility] [id number] Common 15:54:00 15:54:00 t [facility] [address] [facility] 2019-08-20 2019-08-20 Outpatient [facility] [id number] Common 22:48:00 22:48:00 t [facility] [address] [facility] 2019-08-20 2019-08-20 Outpatient [facility] [id number] Common 13:00:00 13:00:[address] [facility] 2019-08-13 2019-08-13 Outpatient [facility] 30 [id number] Common 15:02:00 15:02:[address] [facility] 2019-06-28 2019-06-28 Outpatient [facility] [id number] Common 14:00:00 14:00:[address] [facility] 2019-06-04 2019-06-04 Outpatient [facility] [id number] Common 10:30:00 10:30:[address] Spir [facility] 2019-05-21 2019-05-21 Outpatient Mary Ann Mckeon [id number] Common 14:30:00 14:30:00 t [facility] Spir [facility] 2019-03-20 2019-03-20 Outpatient Mary Ann Mckeon [id number] Common 14:00:00 14:00:00 t [facility]ir [facility] Results Test Description Test Time Test Comments Results Result Comments Source BASIC METABOLIC PANEL (NA, K, CL, CO2, GLUCOSE, BUN, 2022-12 11:04:27 CREATININE, [place]) Test Item Value Reference Range Interpretation Comme nts NA (test code = 6696639418) 137 mmol/L 135-145 K (test code = 5912997995) 4.1 mmol/L 3.5-5.0 CL (test code = 5076716452) 103 mmol/L 98-108 CO2 TOTAL (test code = 31 mmol/L 23-31 6058795398) AGAP (test code = 1477978484) 3 2-16 BUN (test code = 5654745467) 21 mg/dL 7-23 GLUCOSE (test code = 6852288577) 106 mg/dL 70-110 CREATININE (test code = 0.93 mg/dL 0.60-1.25 1415710167) CALCIUM (test code = 8575092153) 8.9 mg/dL 8.6-10.6 eGFR (test code = 9819509618) 79.2 mL/min/1.73m2 TYE (test code = TYE) Association of Glomerular Filtration Rate (GFR) and Staging of Kidney Disease* + +--------- + ----+| GFR (mL/min/1.73 m2) ?| With Kidney Damage ?| ?Without Kidney Damage+ +--- + +| ?>90 ?| ?Stage one ?| ? Normal ?+ +-------- + -----+| ?60-89 ?| ?Stage two ?| ? Decreased GFR ? + +--------- + ----+| ?30-59 ?| ?Stage three ?| ? Stage three ? + +--------- + ----+| ?15-29 ?| ?Stage four ? | ? Stage four ?+ +-------- + -----+| ?<15 (or dialysis) ? ?| ?Stage five ? | ? Stage five ?+ +-------- + -----+ *Each stage assumes the associated GFR level [...] or urine or abnormalities in imaging tests). [facility] METABOLIC PANEL (NA, K, CL, CO2, GLUCOSE, BUN, CREATININE, CA)2023-01-23 11:04:27 Test Item Value Reference Range Interpretation Comments NA (test code = 137 mmol/L 135-145 6069222916) K (test code = 4.1 mmol/L 3.5-5.0 9427315662) CL (test code = 103 mmol/L 98-108 2397167157) CO2 TOTAL (test code 31 mmol/L 23-31 = 3757059339) AGAP (test code = 3 2-16 6785284084) BUN (test code = 21 mg/dL 7-23 5793007548) GLUCOSE (test code = 106 mg/dL 70-110 1518661594) CREATININE (test code 0.93 mg/dL 0.60-1.25 = 9421264715) CALCIUM (test code = 8.9 mg/dL 8.6-10.6 4259015787) eGFR (test code = 79.2 mL/min/1.73m2 2849257718) TYE (test code = TYE) Association of [...] or urine or abnormalities in imaging tests). [facility] WITH [id number] 10:46:25 Test Item Value Reference Range Interpretation Comments WBC (test code = 10.31 See_Comment [Automated 2559-2) message] The sy stem which generated this result transmitted reference range : 4.20 - 10.70 10*3/?L. The reference range was not used to interpret this result as normal/abnormal . RBC (test code = 4.26 See_Comment [Automated 889-8) message] The sy stem which generated this result transmitted reference range : 4.26 - 5.52 10*6/?L. The reference range was not used to interpret this result as normal/abnormal . HGB (test code = 12.5 g/dL 12.2-16.4 718-7) HCT (test code = 37.0 % 38.4-49.3 L 4544-3) MCV (test code = 86.9 fL 81.7-95.6 787-2) MCH (test code = 29.3 pg 26.1-32.7 785-6) MCHC (test code = 33.8 g/dL 31.2-35.0 786-4) RDW-SD (test code = 42.4 fL 38.5-51.6 93321-7) RDW-CV (test code = 13.6 % 12.1-15.4 788-0) PLT (test code = 203 See_Comment [Automated 777-3) message] The sy stem which generated this result transmitted reference range : 150 - 328 10*3/ ?L. The reference r mey was not used to interpret this result as normal/abnormal . MPV (test code = 10.6 fL 9.8-13.0 32818-7) NRBC/100 WBC (test 0.0 See_Comment [Automat ed code = 7879151013) message] The system which generated this result transmitted reference range : 0.0 - 10.0 /100 WBCs. The refer ence range was not u sed to interpret th is result as normal/abnormal . NRBC x10^3 (test code See_Comment [Auto mated = 4961672259) message] The s ystem which generated this result transmitted reference range : 10*3/?L. The reference range was not used to interpret this result as normal/abnormal . GRAN MAT (NEUT) % 62.8 % (test code = 770-8) IMM GRAN % (test code 1.70 % = 6792466301) LYMPH % (test code = 21.0 % 736-9) MONO % (test code = 10.8 % 5905-5) EOS % (test code = 3.1 % 713-8) BASO % (test code = 0.6 % 706-2) GRAN MAT x10^3(ANC) 6.48 10*3/uL 1.99-6.95 (test code = [id number]) IMM GRAN x10^3 (test 0.18 10*3/uL 0.00-0.06 H code = [id number]) LYMPH x10^3 (test code 2.16 10*3/uL 1.09-3.23 = 731-0) MONO x10^3 (test code 1.11 10*3/uL 0.36-1.02 H = 742-7) EOS x10^3 (test code = 0.32 10*3/uL 0.06-0.53 711-2) BASO x10^3 (test code 0.06 10*3/uL 0.01-0.09 = 704-7) Lab Interpretation Abnormal (test code = 98155-8) [facility] WITH [id number] 10:46:25 Test Item Value Reference Range Interpretation Comments WBC (test code = 10.31 See_Comment [Automated 6690-2) message] The sy stem which generated this result transmitted reference range : 4.20 - 10.70 10*3/?L. The reference range was not used to interpret this result as normal/abnormal . RBC (test code = 4.26 See_Comment [Automated 789-8) message] The sy stem which generated this result transmitted reference range : 4.26 - 5.52 10*6/?L. The reference range was not used to interpret this result as normal/abnormal . HGB (test code = 12.5 g/dL 12.2-16.4 718-7) HCT (test code = 37.0 % 38.4-49.3 L 4544-3) MCV (test code = 86.9 fL 81.7-95.6 787-2) MCH (test code = 29.3 pg 26.1-32.7 785-6) MCHC (test code = 33.8 g/dL 31.2-35.0 786-4) RDW-SD (test code = 42.4 fL 38.5-51.6 37107-6) RDW-CV (test code = 13.6 % 12.1-15.4 788-0) PLT (test code = 203 See_Comment [Automated 777-3) message] The sy stem which generated this result transmitted reference range : 150 - 328 10*3/ ?L. The reference r mey was not used to interpret this result as normal/abnormal . MPV (test code = 10.6 fL 9.8-13.0 75063-4) NRBC/100 WBC (test 0.0 See_Comment [Automat ed code = [id number]) message] The system which generated this result transmitted reference range : 0.0 - 10.0 /100 WBCs. The refer ence range was not u sed to interpret th is result as normal/abnormal . NRBC x10^3 (test code See_Comment [Auto mated = [id number]) message] The s ystem which generated this result transmitted reference range : 10*3/?L. The reference range was not used to interpret this result as normal/abnormal . GRAN MAT (NEUT) % 62.8 % (test code = 770-8) IMM GRAN % (test code 1.70 % = [id number]) LYMPH % (test code = 21.0 % 736-9) MONO % (test code = 10.8 % 5905-5) EOS % (test code = 3.1 % 713-8) BASO % (test code = 0.6 % 706-2) GRAN MAT x10^3(ANC) 6.48 10*3/uL 1.99-6.95 (test code = [id number]) IMM GRAN x10^3 (test 0.18 10*3/uL 0.00-0.06 H code = [id number]) LYMPH x10^3 (test code 2.16 10*3/uL 1.09-3.23 = 731-0) MONO x10^3 (test code 1.11 10*3/uL 0.36-1.02 H = 742-7) EOS x10^3 (test code = 0.32 10*3/uL 0.06-0.53 711-2) BASO x10^3 (test code 0.06 10*3/uL 0.01-0.09 = 704-7) Lab Interpretation Abnormal (test code = 10813-2) [facility] (ALB,T.PRO,BILI T,BU/BC,ALT,AST,ALK PHOS)2023-01-21 16:12:06 Test Item Value Reference Range Interpretation Comments TOTAL BILI (test code = 8452198142) 0.3 mg/dL 0.1-1.1 BILI UNCON (test code = 7917421854) 0.0 mg/dL 0.1-1.1 L BILI CONJ (test code = 1693793525) 0.0 mg/dL 0.0-0.3 T PROTEIN (test code = 2817563296) 6.6 g/dL 6.3-8.2 ALBUMIN (test code = 3689410611) 3.6 g/dL 3.5-5.0 ALK PHOS (test code = 3581200268) 65 U/L 34-122 ALTv (test code = 1742-6) 18 U/L 5-50 AST(SGOT) (test code = 1772809969) 38 U/L 13-40 Lab Interpretation (test code = Abnormal 76520-9) [facility]64137[facility] (ALB,T.PRO,BILI T,BU/BC,ALT,AST,ALK PHOS)2023-01-21 16:12:06 Test Item Value Reference Range Interpretation Comments TOTAL BILI (test code = 8032914711) 0.3 mg/dL 0.1-1.1 BILI UNCON (test code = 5299156393) 0.0 mg/dL 0.1-1.1 L BILI CONJ (test code = 6161940123) 0.0 mg/dL 0.0-0.3 T PROTEIN (test code = 7012592673) 6.6 g/dL 6.3-8.2 ALBUMIN (test code = 1657439541) 3.6 g/dL 3.5-5.0 ALK PHOS (test code = 4919975162) 65 U/L 34-122 ALTv (test code = 1742-6) 18 U/L 5-50 AST(SGOT) (test code = 3838869625) 38 U/L 13-40 Lab Interpretation (test code = Abnormal 00646-0) [facility] / [id number] 16:03:48 Test Item Value Reference Range Interpretation Comments PROTIME PATIENT (test 12.4 See_Comment [Auto mated message] code = 5964-2) The system [employer] generated this result transmitted ref erence range: 10.1 - 1 2.6 Seconds. The re ference range was not u sed to interpret this result as normal/abnor mal. INR (test code = 6301-6) 1.1 Nor mal INR <1.1; Warfarin Therap eutic range 2.0 to 3. 0 or 2.5 to 3.5, dep ending upon the indica tions. Lab Interpretation (test Normal code = 24428-0) [facility] / [id number] 16:03:48 Test Item Value Reference Range Interpretation Comments PROTIME PATIENT (test 12.4 See_Comment [Auto mated message] code = 5964-2) The system wh ich generated this result transmitted ref erence range: 10.1 - 1 2.6 Seconds. The re ference range was not u sed to interpret this result as normal/abnor mal. INR (test code = 6301-6) 1.1 Nor mal INR <1.1; Warfarin Therap eutic range 2.0 to 3. 0 or 2.5 to 3.5, dep ending upon the indica tions. Lab Interpretation (test Normal code = 75445-1) [facility] WITH [id number] 15:57:25 Test Item Value Reference Range Interpretation Comments WBC (test code = 10.30 See_Comment [Automated 2790-2) message] The sy stem which generated this result transmitted reference range : 4.20 - 10.70 10*3/?L. The reference range was not used to interpret this result as normal/abnormal . RBC (test code = 4.32 See_Comment [Automated 789-8) message] The sy stem which generated this result transmitted reference range : 4.26 - 5.52 10*6/?L. The reference range was not used to interpret this result as normal/abnormal . HGB (test code = 12.5 g/dL 12.2-16.4 718-7) HCT (test code = 37.7 % 38.4-49.3 L 4544-3) MCV (test code = 87.3 fL 81.7-95.6 787-2) MCH (test code = 28.9 pg 26.1-32.7 785-6) MCHC (test code = 33.2 g/dL 31.2-35.0 786-4) RDW-SD (test code = 42.5 fL 38.5-51.6 12888-9) RDW-CV (test code = 13.4 % 12.1-15.4 788-0) PLT (test code = 215 See_Comment [Automated 777-3) message] The sy stem which generated this result transmitted reference range : 150 - 328 10*3/ ?L. The reference r mey was not used to interpret this result as normal/abnormal . MPV (test code = 10.7 fL 9.8-13.0 07376-5) NRBC/100 WBC (test 0.0 See_Comment [Automat ed code = 4775073739) message] The system which generated this result transmitted reference range : 0.0 - 10.0 /100 WBCs. The refer ence range was not u sed to interpret th is result as normal/abnormal . NRBC x10^3 (test code See_Comment [Auto mated = 6172201324) message] The s ystem which generated this result transmitted reference range : 10*3/?L. The reference range was not used to interpret this result as normal/abnormal . GRAN MAT (NEUT) % 71.9 % (test code = 770-8) IMM GRAN % (test code 1.60 % = 7570116997) LYMPH % (test code = 13.8 % 736-9) MONO % (test code = 9.4 % 5905-5) EOS % (test code = 2.6 % 713-8) BASO % (test code = 0.7 % 706-2) GRAN MAT x10^3(ANC) 7.41 10*3/uL 1.99-6.95 H (test code = 8898510181) IMM GRAN x10^3 (test 0.16 10*3/uL 0.00-0.06 H code = 6287052316) LYMPH x10^3 (test code 1.42 10*3/uL 1.09-3.23 = 731-0) MONO x10^3 (test code 0.97 10*3/uL 0.36-1.02 = 742-7) EOS x10^3 (test code = 0.27 10*3/uL 0.06-0.53 711-2) BASO x10^3 (test code 0.07 10*3/uL 0.01-0.09 = 704-7) Lab Interpretation Abnormal (test code = 85641-2) [facility] WITH [id number] 15:57:25 Test Item Value Reference Range Interpretation Comments WBC (test code = 10.30 See_Comment [Automated 9466-2) message] The sy stem which generated this result transmitted reference range : 4.20 - 10.70 10*3/?L. The reference range was not used to interpret this result as normal/abnormal . RBC (test code = 4.32 See_Comment [Automated 789-8) message] The sy stem which generated this result transmitted reference range : 4.26 - 5.52 10*6/?L. The reference range was not used to interpret this result as normal/abnormal . HGB (test code = 12.5 g/dL 12.2-16.4 718-7) HCT (test code = 37.7 % 38.4-49.3 L 4544-3) MCV (test code = 87.3 fL 81.7-95.6 787-2) MCH (test code = 28.9 pg 26.1-32.7 785-6) MCHC (test code = 33.2 g/dL 31.2-35.0 786-4) RDW-SD (test code = 42.5 fL 38.5-51.6 30261-7) RDW-CV (test code = 13.4 % 12.1-15.4 788-0) PLT (test code = 215 See_Comment [Automated 777-3) message] The sy stem which generated this result transmitted reference range : 150 - 328 10*3/ ?L. The reference r mey was not used to interpret this result as normal/abnormal . MPV (test code = 10.7 fL 9.8-13.0 98367-7) NRBC/100 WBC (test 0.0 See_Comment [Automat ed code = 2105872988) message] The system which generated this result transmitted reference range : 0.0 - 10.0 /100 WBCs. The refer ence range was not u sed to interpret th is result as normal/abnormal . NRBC x10^3 (test code See_Comment [Auto mated = 1151564751) message] The s ystem which generated this result transmitted reference range : 10*3/?L. The reference range was not used to interpret this result as normal/abnormal . GRAN MAT (NEUT) % 71.9 % (test code = 770-8) IMM GRAN % (test code 1.60 % = 1977466670) LYMPH % (test code = 13.8 % 736-9) MONO % (test code = 9.4 % 5905-5) EOS % (test code = 2.6 % 713-8) BASO % (test code = 0.7 % 706-2) GRAN MAT x10^3(ANC) 7.41 10*3/uL 1.99-6.95 H (test code = 6497602913) IMM GRAN x10^3 (test 0.16 10*3/uL 0.00-0.06 H code = 7784946015) LYMPH x10^3 (test code 1.42 10*3/uL 1.09-3.23 = 731-0) MONO x10^3 (test code 0.97 10*3/uL 0.36-1.02 = 742-7) EOS x10^3 (test code = 0.27 10*3/uL 0.06-0.53 711-2) BASO x10^3 (test code 0.07 10*3/uL 0.01-0.09 = 704-7) Lab Interpretation Abnormal (test code = 90825-0) [facility] GLUCOSE (AUTOMATED)2023-01-14 03:21:37 Test Item Value Reference Range Interpretation Comments POCT GLU (test code = 6717637910) 100 mg/dL 70-110 Lab Interpretation (test code = Normal 17755-5) [facility] GLUCOSE (AUTOMATED)2023-01-14 03:21:37 Test Item Value Reference Range Interpretation Comments POCT GLU (test code = 7318343244) 100 mg/dL 70-110 Lab Interpretation (test code = Normal 01478-6) [facility]. METABOLIC PANEL (94639)2023-01-10 03:24:31 Test Item Value Reference Range Interpretation Comments NA (test code = 144 mmol/L 135-145 5598283946) K (test code = 4.0 mmol/L 3.5-5.0 1806947169) CL (test code = 109 mmol/L 98-108 H 6887070245) CO2 TOTAL (test code = 27 mmol/L 23-31 6107165559) AGAP (test code = 8 2-16 5697313322) BUN (test code = 20 mg/dL 7-23 5583142666) GLUCOSE (test code = 113 mg/dL 70-110 H 6497185728) CREATININE (test code = 1.46 mg/dL 0.60-1.25 H 3342900350) TOTAL BILI (test code = 0.5 mg/dL 0.1-1.6 2852318456) CALCIUM (test code = 9.4 mg/dL 8.6-10.6 4146937263) T PROTEIN (test code = 8.0 g/dL 6.3-8.2 2757284981) ALBUMIN (test code = 4.5 g/dL 3.5-5.0 0847003001) ALK PHOS (test code = 87 U/L 34-122 2783404088) ALTv (test code = 16 U/L 5-50 1742-6) AST(SGOT) (test code = 25 U/L 13-40 4188502991) eGFR (test code = 47.1 mL/min/1.73m2 9272003006) TYE (test code = TYE) Association of [...] tests). Lab Interpretation Abnormal (test code = 33655-9) [facility] WITH [id number] 03:13:10 Test Item Value Reference Range Interpretation Comments WBC (test code = 10.32 See_Comment [Automated 6690-2) message] The sy stem which generated this result transmitted reference range : 4.20 - 10.70 10*3/?L. The reference range was not used to interpret this result as normal/abnormal . RBC (test code = 4.85 See_Comment [Automated 789-8) message] The sy stem which generated this result transmitted reference range : 4.26 - 5.52 10*6/?L. The reference range was not used to interpret this result as normal/abnormal . HGB (test code = 14.5 g/dL 12.2-16.4 718-7) HCT (test code = 42.0 % 38.4-49.3 4544-3) MCV (test code = 86.6 fL 81.7-95.6 787-2) MCH (test code = 29.9 pg 26.1-32.7 785-6) MCHC (test code = 34.5 g/dL 31.2-35.0 786-4) RDW-SD (test code = 39.8 fL 38.5-51.6 17788-9) RDW-CV (test code = 12.7 % 12.1-15.4 788-0) PLT (test code = 236 See_Comment [Automated 777-3) message] The sy stem which generated this result transmitted reference range : 150 - 328 10*3/ ?L. The reference r mey was not used to interpret this result as normal/abnormal . MPV (test code = 10.2 fL 9.8-13.0 55792-5) NRBC/100 WBC (test 0.0 See_Comment [Automat ed code = 0060715073) message] The system which generated this result transmitted reference range : 0.0 - 10.0 /100 WBCs. The refer ence range was not u sed to interpret th is result as normal/abnormal . NRBC x10^3 (test code See_Comment [Auto mated = 9195908600) message] The s ystem which generated this result transmitted reference range : 10*3/?L. The reference range was not used to interpret this result as normal/abnormal . GRAN MAT (NEUT) % 84.7 % (test code = 770-8) IMM GRAN % (test code 0.60 % = 9395682009) LYMPH % (test code = 8.8 % 736-9) MONO % (test code = 4.9 % 5905-5) EOS % (test code = 0.5 % 713-8) BASO % (test code = 0.5 % 706-2) GRAN MAT x10^3(ANC) 8.74 10*3/uL 1.99-6.95 H (test code = 9532142990) IMM GRAN x10^3 (test 0.06 10*3/uL 0.00-0.06 code = 0004683066) LYMPH x10^3 (test code 0.91 10*3/uL 1.09-3.23 L = 731-0) MONO x10^3 (test code 0.51 10*3/uL 0.36-1.02 = 742-7) EOS x10^3 (test code = 0.05 10*3/uL 0.06-0.53 L 711-2) BASO x10^3 (test code 0.05 10*3/uL 0.01-0.09 = 704-7) Lab Interpretation Abnormal (test code = 29406-8) [facility] [id number] 04:05:01 Test Item Value Reference Range Interpretation Comments APTT Patient (test 29 See_Comment [Automat ed code = 3173-2) message] The system which generated this result transmitted reference range : 23 - 38 Seconds . The reference range was not used to interpr et this result as normal/abnormal . TYE (test code = TYE) The [facility] patient population mean normal value for aPTT is 30 seconds. Lab Interpretation Normal (test code = 33365-3) [facility] / [id number] 04:03:00 Test Item Value Reference Range Interpretation Comments PROTIME PATIENT (test 13.3 See_Comment [Auto mated message] code = 5964-2) The system wh ich generated this result transmitted ref erence range: 12.0 - 1 4.7 Seconds. The re ference range was not u sed to interpret this result as normal/abnor mal. INR (test code = 6301-6) 1.1 Nor mal INR <1.1; Warfarin Therap eutic range 2.0 to 3. 0 or 2.5 to 3.5, dep ending upon the indica tions. Lab Interpretation (test Normal code = 48021-8) [facility] METABOLIC PANEL (NA, K, CL, CO2, GLUCOSE, BUN, CREATININE, CA)2023-01-09 03:50:42 Test Item Value Reference Range Interpretation Comments NA (test code = 144 mmol/L 135-145 6030290763) K (test code = 3.8 mmol/L 3.5-5.0 9433564407) CL (test code = 109 mmol/L 98-108 H 0439037192) CO2 TOTAL (test code = 27 mmol/L 23-31 6800551934) AGAP (test code = 8 2-16 8782287236) BUN (test code = 20 mg/dL 7-23 1665990463) GLUCOSE (test code = 107 mg/dL 70-110 9195212753) CREATININE (test code = 1.53 mg/dL 0.60-1.25 H 3578666458) CALCIUM (test code = 9.2 mg/dL 8.6-10.6 1325639699) eGFR (test code = 44.6 mL/min/1.73m2 6953079407) TYE (test code = TYE) Association of [...] tests). Lab Interpretation Abnormal (test code = 93195-4) [facility] WITH [id number] 03:40:21 Test Item Value Reference Range Interpretation Comments WBC (test code = 7.85 See_Comment [Automated message] 9004-2) The system [employer] generated this result transmitted ref erence range: 4.20 - 1 0.70 10*3/?L. The re ference range was not u sed to interpret this result as normal/abnor mal. RBC (test code = 4.70 See_Comment [Automated message] 609-8) The system [employer] generated this result transmitted ref erence range: 4.26 - 5 .52 10*6/?L. The re ference range was not u sed to interpret this result as normal/abnor mal. HGB (test code = 13.8 g/dL 12.2-16.4 718-7) HCT (test code = 40.5 % 38.4-49.3 4544-3) MCV (test code = 86.2 fL 81.7-95.6 787-2) MCH (test code = 29.4 pg 26.1-32.7 785-6) MCHC (test code = 34.1 g/dL 31.2-35.0 786-4) RDW-SD (test code 39.9 fL 38.5-51.6 = 19291-4) RDW-CV (test code 12.8 % 12.1-15.4 = 788-0) PLT (test code = 232 See_Comment [Automated message] 494-3) The system [employer] generated this result transmitted ref erence range: 150 - 32 8 10*3/?L. The re ference range was not u sed to interpret this result as normal/abnor mal. MPV (test code = 10.0 fL 9.8-13.0 37684-5) NRBC/100 WBC (test 0.0 See_Comment [Automat ed message] code = 0719752293) The syste m which generated this result transmitted ref erence range: 0.0 - 10 .0 /100 WBCs. The refer ence range was not u sed to interpret this result as normal/abnor mal. NRBC x10^3 (test See_Comment [Automated message] code = 5339684955) The syste m which generated this result transmitted ref erence range: 10*3/?L. The reference range was not used to interpr et this result as normal/abnormal . GRAN MAT (NEUT) % 65.1 % (test code = 770-8) IMM GRAN % (test 0.60 % code = 8600618063) LYMPH % (test code 24.6 % = 736-9) MONO % (test code 6.9 % = 5905-5) EOS % (test code = 2.3 % 713-8) BASO % (test code 0.5 % = 706-2) GRAN MAT 5.11 10*3/uL 1.99-6.95 x10^3(ANC) (test code = 7733313162) IMM GRAN x10^3 0.05 10*3/uL 0.00-0.06 (test code = 2246247607) LYMPH x10^3 (test 1.93 10*3/uL 1.09-3.23 code = 731-0) MONO x10^3 (test 0.54 10*3/uL 0.36-1.02 code = 742-7) EOS x10^3 (test 0.18 10*3/uL 0.06-0.53 code = 711-2) BASO x10^3 (test 0.04 10*3/uL 0.01-0.09 code = 704-7) [facility]CHRISTOPH [id number] 14:49:50 Test Item Value Reference Range Interpretation Comments TROPONIN I (test code = 0.023 ng/mL <=0.034 8262551961) TYE (test code = TYE) Reference (Normal) Range (defined by the 99th percentile reference [...] biotin. Lab Interpretation Normal (test code = 43599-1) [facility] WITH [id number] 09:46:23 Test Item Value Reference Range Interpretation Comments WBC (test code = 5.76 See_Comment [Automated 6254-2) message] The sy stem which generated this result transmitted reference range : 4.20 - 10.70 10*3/?L. The reference range was not used to interpret this result as normal/abnormal . RBC (test code = 3.18 See_Comment L [Automated 009-8) message] The sy stem which generated this result transmitted reference range : 4.26 - 5.52 10*6/?L. The reference range was not used to interpret this result as normal/abnormal . HGB (test code = 9.1 g/dL 12.2-16.4 L 718-7) HCT (test code = 27.7 % 38.4-49.3 L 4544-3) MCV (test code = 87.1 fL 81.7-95.6 787-2) MCH (test code = 28.6 pg 26.1-32.7 785-6) MCHC (test code = 32.9 g/dL 31.2-35.0 786-4) RDW-SD (test code = 41.3 fL 38.5-51.6 50539-3) RDW-CV (test code = 13.0 % 12.1-15.4 788-0) PLT (test code = 179 See_Comment [Automated 677-3) message] The sy stem which generated this result transmitted reference range : 150 - 328 10*3/ ?L. The reference r mey was not used to interpret this result as normal/abnormal . MPV (test code = 10.8 fL 9.8-13.0 55350-2) NRBC/100 WBC (test 0.0 See_Comment [Automat ed code = 6387823191) message] The system which generated this result transmitted reference range : 0.0 - 10.0 /100 WBCs. The refer ence range was not u sed to interpret th is result as normal/abnormal . NRBC x10^3 (test code See_Comment [Auto mated = 1751489775) message] The s ystem which generated this result transmitted reference range : 10*3/?L. The reference range was not used to interpret this result as normal/abnormal . GRAN MAT (NEUT) % 58.9 % (test code = 770-8) IMM GRAN % (test code 0.50 % = 7795231999) LYMPH % (test code = 26.4 % 736-9) MONO % (test code = 10.9 % 5905-5) EOS % (test code = 2.8 % 713-8) BASO % (test code = 0.5 % 706-2) GRAN MAT x10^3(ANC) 3.39 10*3/uL 1.99-6.95 (test code = 4295526403) IMM GRAN x10^3 (test 0.03 10*3/uL 0.00-0.06 code = 0146438178) LYMPH x10^3 (test code 1.52 10*3/uL 1.09-3.23 = 731-0) MONO x10^3 (test code 0.63 10*3/uL 0.36-1.02 = 742-7) EOS x10^3 (test code = 0.16 10*3/uL 0.06-0.53 711-2) BASO x10^3 (test code 0.03 10*3/uL 0.01-0.09 = 704-7) Lab Interpretation Abnormal (test code = 85379-6) [facility] [id number] 08:45:40 Test Item Value Reference Range Interpretation Comments NT-proBNP (test code = 5260 pg/mL <=125 H 4502101818) TYE (test code = TYE) Biotin has been reported to cause a negative bias, interpret results relative to patient's use of biotin. Lab Interpretation (test Abnormal code = 49992-8) [facility]2023-[facility]-22 08:36:56 Test Item Value Reference Range Interpretation Comments MAGNESIUM (test code = 0024950918) 1.8 mg/dL 1.7-2.4 Lab Interpretation (test code = Normal 22577-8) [facility] (NA, K, CL, CO2, GLUCOSE, BUN, CREATININE, CA)2022-07-20 08:36:36 Test Item Value Reference Range Interpretation Comments NA (test code = 140 mmol/L 135-145 1006982483) K (test code = 3.3 mmol/L 3.5-5.0 L 8798739013) CL (test code = 109 mmol/L 98-108 H 2881114784) CO2 TOTAL (test code = 25 mmol/L 23-31 6962133938) AGAP (test code = 6 2-16 6607963838) BUN (test code = 43 mg/dL 7-23 H 9152752067) GLUCOSE (test code = 103 mg/dL 70-110 5191112275) CREATININE (test code = 2.40 mg/dL 0.60-1.25 H 1344418040) CALCIUM (test code = 7.4 mg/dL 8.6-10.6 L 5534126939) eGFR (test code = 26.6 mL/min/1.73m2 3895393703) TYE (test code = TYE) Association of [...] tests). Lab Interpretation Abnormal (test code = 74809-9) [facility] METABOLIC PANEL (NA, K, CL, CO2, GLUCOSE, BUN, CREATININE, CA)2022-07-12 05:28:25 Test Item Value Reference Range Interpretation Comments NA (test code = 141 mmol/L 135-145 6008056158) K (test code = 4.4 mmol/L 3.5-5.0 7819521635) CL (test code = 103 mmol/L 98-108 7664054426) CO2 TOTAL (test code = 24 mmol/L 23-31 6812137089) AGAP (test code = 14 2-16 3329322399) BUN (test code = 19 mg/dL 7-23 3975041528) GLUCOSE (test code = 139 mg/dL 70-110 H 6132211811) CREATININE (test code = 1.13 mg/dL 0.60-1.25 8056999825) CALCIUM (test code = 9.3 mg/dL 8.6-10.6 6539775849) eGFR (test code = 63.4 mL/min/1.73m2 4167627800) TYE (test code = TYE) Association of [...] tests). Lab Interpretation Abnormal (test code = 52906-0) [facility]52945[facility] (ALB,T.PRO,BILI T,BU/BC,ALT,AST,ALK PHOS)2022-07-12 05:28:25 Test Item Value Reference Range Interpretation Comments TOTAL BILI (test code = 5349864427) 0.7 mg/dL 0.1-1.1 BILI UNCON (test code = 5533085583) 0.4 mg/dL 0.1-1.1 BILI CONJ (test code = 8319203895) 0.0 mg/dL 0.0-0.3 T PROTEIN (test code = 5904328327) 7.7 g/dL 6.3-8.2 ALBUMIN (test code = 2387120591) 4.6 g/dL 3.5-5.0 ALK PHOS (test code = 1377438316) 78 U/L 34-122 ALTv (test code = 1742-6) 17 U/L 5-50 AST(SGOT) (test code = 6575946695) 24 U/L 13-40 Lab Interpretation (test code = Normal 33448-7) [facility] 05:28:25 Test Item Value Reference Range Interpretation Comments LIPASE (test code = 2171690953) 43 U/L 0-220 Lab Interpretation (test code = Normal 12559-4) [facility] WITH [id number] 05:15:05 Test Item Value Reference Range Interpretation Comments WBC (test code = 11.26 See_Comment H [Automated 6690-2) message] The system which generated this result transmit missy reference range : 4.20 - 10.70 10*3/?L. The reference range was not used to interpret this result as normal/abnormal . RBC (test code = 4.74 See_Comment [Automated 789-8) message] The system which generated this result transmit missy reference range : 4.26 - 5.52 10*6/?L. The reference range was not used to interpret this result as normal/abnormal . HGB (test code = 13.6 g/dL 12.2-16.4 718-7) HCT (test code = 40.1 % 38.4-49.3 4544-3) MCV (test code = 84.6 fL 81.7-95.6 787-2) MCH (test code = 28.7 pg 26.1-32.7 785-6) MCHC (test code = 33.9 g/dL 31.2-35.0 786-4) RDW-SD (test code = 39.5 fL 38.5-51.6 44141-8) RDW-CV (test code = 12.8 % 12.1-15.4 788-0) PLT (test code = 239 See_Comment [Automated 777-3) message] The system which generated this result transmit missy reference range : 150 - 328 10*3/ ?L. The reference range was not u sed to interpret th is result as normal/abnormal . MPV (test code = 10.1 fL 9.8-13.0 91580-5) NRBC/100 WBC (test 0.0 See_Comment [Automat ed code = 9741995929) message] The system which generated this result transmit missy reference range : 0.0 - 10.0 /100 WBCs. The reference range was not used to interpret this result as normal/abnormal . NRBC x10^3 (test code See_Comment [Auto mated = 9308974477) message] The system which generated this result transmit missy reference range : 10*3/?L. The reference range was not used to interpret this result as normal/abnormal . GRAN MAT (NEUT) % 89.8 % (test code = 770-8) IMM GRAN % (test code 0.50 % = [id number]) LYMPH % (test code = 5.9 % 736-9) MONO % (test code = 3.5 % 5905-5) EOS % (test code = 0.0 % 713-8) BASO % (test code = 0.3 % 706-2) GRAN MAT x10^3(ANC) 10.12 10*3/uL 1.99-6.95 H (test code = [id number]) IMM GRAN x10^3 (test 0.06 10*3/uL 0.00-0.06 code = [id number]) LYMPH x10^3 (test code 0.66 10*3/uL 1.09-3.23 L = 731-0) MONO x10^3 (test code 0.39 10*3/uL 0.36-1.02 = 742-7) EOS x10^3 (test code = 0.06-0.53 L 711-2) BASO x10^3 (test code 0.03 10*3/uL 0.01-0.09 = 704-7) Lab Interpretation Abnormal (test code = 38712-0) [facility] URINALYSIS, [id number] 20:59:00 Test Item Value Reference Range Interpretation Comments POCT U SP GRAV (test code = 1.020 mg/dl 1.005-1.025 3255) POCT PH U (test code = 3254) 6 mg/dl 5-8 POCT U LEUK EST (test code = negative Negative - Negative 3263) POCT U NIT (test code = 3262) negative Negative - Negative POCT U PROT (test code = negative Negative - Negative 3259) POCT U GLU (test code = 3256) negative Negative - Negative POCT U KETONE (test code = negative Negative - Negative 3258) POCT U UROBILI (test code = 0.2 mg/dl 0.2-1 3260) POCT U BILI (test code = negative Negative - Negative 3261) POCT U BLD (test code = 3257) negative Negative - Negative POCT U COLOR (test code = yellow 3266) POCT U APPEAR (test code = clear 3267) Lab Interpretation (test code Normal = 72493-4) [facility] URINALYSIS, [id number] 20:59:00 Test Item Value Reference Range Interpretation Comments POCT U SP GRAV (test code = 1.020 mg/dl 1.005-1.025 3255) POCT PH U (test code = 3254) 6 mg/dl 5-8 POCT U LEUK EST (test code = negative Negative - Negative 3263) POCT U NIT (test code = 3262) negative Negative - Negative POCT U PROT (test code = negative Negative - Negative 3259) POCT U GLU (test code = 3256) negative Negative - Negative POCT U KETONE (test code = negative Negative - Negative 3258) POCT U UROBILI (test code = 0.2 mg/dl 0.2-1 3260) POCT U BILI (test code = negative Negative - Negative 3261) POCT U BLD (test code = 3257) negative Negative - Negative POCT U COLOR (test code = yellow 3266) POCT U APPEAR (test code = clear 3267) Lab Interpretation (test code Normal = 77496-2) [facility] URINALYSIS, [id number] 20:59:00 Test Item Value Reference Range Interpretation Comments POCT U SP GRAV (test code = 1.020 mg/dl 1.005-1.025 3255) POCT PH U (test code = 3254) 6 mg/dl 5-8 POCT U LEUK EST (test code = negative Negative - Negative 3263) POCT U NIT (test code = 3262) negative Negative - Negative POCT U PROT (test code = negative Negative - Negative 3259) POCT U GLU (test code = 3256) negative Negative - Negative POCT U KETONE (test code = negative Negative - Negative 3258) POCT U UROBILI (test code = 0.2 mg/dl 0.2-1 3260) POCT U BILI (test code = negative Negative - Negative 3261) POCT U BLD (test code = 3257) negative Negative - Negative POCT U COLOR (test code = yellow 3266) POCT U APPEAR (test code = clear 3267) Lab Interpretation (test code Normal = 83364-7) [facility] [id number] 20:59:00 Test Item Value Reference Range Interpretation Comments POCT U SP GRAV (test code = 1.020 mg/dl 1.005-1.025 3255) POCT PH U (test code = 3254) 6 mg/dl 5-8 POCT U LEUK EST (test code = negative Negative - Negative 3263) POCT U NIT (test code = 3262) negative Negative - Negative POCT U PROT (test code = negative Negative - Negative 3259) POCT U GLU (test code = 3256) negative Negative - Negative POCT U KETONE (test code = negative Negative - Negative 3258) POCT U UROBILI (test code = 0.2 mg/dl 0.2-1 3260) POCT U BILI (test code = negative Negative - Negative 3261) POCT U BLD (test code = 3257) negative Negative - Negative POCT U COLOR (test code = yellow 3266) POCT U APPEAR (test code = clear 3267) Lab Interpretation (test code Normal = 61918-7) [facility] METABOLIC PANEL (NA, K, CL, CO2, GLUCOSE, BUN, CREATININE, CA)2022-04-04 11:24:35 Test Item Value Reference Range Interpretation Comments NA (test code = 136 mmol/L 135-145 2856169579) K (test code = 5.1 mmol/L 3.5-5.0 H 4610660399) CL (test code = 103 mmol/L 98-108 4508744981) CO2 TOTAL (test code = 27 mmol/L 23-31 8909948971) AGAP (test code = 2-16 3890653965) BUN (test code = 29 mg/dL 7-23 H 7362684497) GLUCOSE (test code = 116 mg/dL 70-110 H 7009683617) CREATININE (test code = 1.13 mg/dL 0.60-1.25 0584617860) CALCIUM (test code = 8.4 mg/dL 8.6-10.6 L 7738272821) eGFR (test code = mL/min/1.73m2 2061602228) TYE (test code = TYE) Association of [...] tests). Lab Interpretation Abnormal (test code = 69432-0) [facility] 11:24:35 Test Item Value Reference Range Interpretation Comments MAGNESIUM (test code = 7440034634) 2.0 mg/dL 1.7-2.4 Lab Interpretation (test code = Normal 39826-2) [facility] 11:24:35 Test Item Value Reference Range Interpretation Comments PHOSPHORUS (test code = 8802961764) 4.5 mg/dL 2.5-5.0 Lab Interpretation (test code = Normal 56521-7) [facility] WITHOUT [id number] 11:07:13 Test Item Value Reference Range Interpretation Comments WBC (test code = 6690-2) See_Comment [A utomated message] The system [employer] generated this result transmit missy reference range : 4.20 - 10.70 10*3/?L. The reference range was not used to interpret this result as normal/abnormal . RBC (test code = 789-8) See_Comment L [Au tomated message] The system [employer] generated this result transmit missy reference range : 4.26 - 5.52 10* 6/?L. The reference r mey was not used to interpret this result as normal/abnormal . HGB (test code = 718-7) 9.6 g/dL 12.2-16.4 L HCT (test code = 4544-3) 28.6 % 38.4-49.3 L MCH (test code = 785-6) 29.2 pg 26.1-32.7 MCV (test code = 787-2) 86.9 fL 81.7-95.6 MCHC (test code = 786-4) 33.6 g/dL 31.2-35.0 PLT (test code = 777-3) See_Comment [Au tomated message] The system [employer] generated this result transmit missy reference range : 150 - 328 10*3/?L. The reference range was not used to interpret this result as normal/abnormal . MPV (test code = 10.2 fL 9.8-13.0 76193-2) RDW-CV (test code = 13.8 % 12.1-15.4 788-0) RDW-SD (test code = 42.1 fL 38.5-51.6 70073-1) NRBC x10^3 (test code = See_Comment [Au tomated message] 0464275303) The system [employer] generated this result transmit missy reference range : 10*3/?L. The reference range was not used to interpret this result as normal/abnormal . NRBC/100 WBC (test code See_Comment [Au tomated message] = 0946259145) The system [facility] generated this result transmit missy reference range : 0.0 - 10.0 /100 WBC s. The reference r mey was not used to interpret this result as normal/abnormal . IPF % (test code = 7336715689) Lab Interpretation (test Abnormal code = 06665-9) [facility]22-04-03 13:19:05 Test Item Value Reference Range Interpretation Comments POCT GLU (test code = 6506344399) 126 mg/dL 70-110 H Lab Interpretation (test code = Abnormal 45434-5) [facility] WITH [id number] 11:02:37 Test Item Value Reference Range Interpretation Comments [...] as normal/abnormal . HGB (test code = 9.1 g/dL 12.2-16.4 L 718-7) HCT (test code = 26.7 % 38.4-49.3 L 4544-3) MCV (test code = 86.4 fL 81.7-95.6 787-2) MCH (test code = 29.4 pg 26.1-32.7 785-6) MCHC (test code = 34.1 g/dL 31.2-35.0 786-4) RDW-SD (test code = 41.9 fL 38.5-51.6 64881-7) RDW-CV (test code = 13.5 % 12.1-15.4 788-0) PLT (test code = See_Comment [Automated 777-3) message] The sy stem which generated this result transmitted reference range : 150 - 328 10*3/ ?L. The reference r mey was not used to interpret this result as normal/abnormal . MPV (test code = 10.2 fL 9.8-13.0 92894-8) NRBC/100 WBC (test See_Comment [Automat ed code = 5133387885) message] The system which generated this result transmitted reference range : 0.0 - 10.0 /100 WBCs. The refer ence range was not u sed to interpret th is result as normal/abnormal . NRBC x10^3 (test code See_Comment [Auto mated = 1654142347) message] The s ystem which generated this result transmitted reference range : 10*3/?L. The reference range was not used to interpret this result as normal/abnormal . GRAN MAT (NEUT) % 70.7 % (test code = 770-8) IMM GRAN % (test code 2.80 % = 4016960391) LYMPH % (test code = 16.7 % 736-9) MONO % (test code = 7.1 % 5905-5) EOS % (test code = 2.3 % 713-8) BASO % (test code = 0.4 % 706-2) GRAN MAT x10^3(ANC) 7.55 10*3/uL 1.99-6.95 H (test code = 1760445717) IMM GRAN x10^3 (test 0.30 10*3/uL 0.00-0.06 H code = 1688133323) LYMPH x10^3 (test code 1.79 10*3/uL 1.09-3.23 = 731-0) MONO x10^3 (test code 0.76 10*3/uL 0.36-1.02 = 742-7) EOS x10^3 (test code = 0.25 10*3/uL 0.06-0.53 711-2) BASO x10^3 (test code 0.04 10*3/uL 0.01-0.09 = 704-7) Lab Interpretation Abnormal (test code = 62944-4) [facility] METABOLIC PANEL (NA, K, CL, CO2, GLUCOSE, BUN, CREATININE, CA)2022-04-03 10:58:59 Test Item Value Reference Range Interpretation Comments NA (test code = 136 mmol/L 135-145 3103852011) K (test code = 4.7 mmol/L 3.5-5.0 7378447966) CL (test code = 103 mmol/L 98-108 3638715331) CO2 TOTAL (test code = 29 mmol/L 23-31 5047862473) AGAP (test code = 2-16 6152503504) BUN (test code = 27 mg/dL 7-23 H 6368112747) GLUCOSE (test code = 100 mg/dL 70-110 5662515927) CREATININE (test code = 1.07 mg/dL 0.60-1.25 0770822986) CALCIUM (test code = 8.3 mg/dL 8.6-10.6 L 2169543317) eGFR (test code = mL/min/1.73m2 2460097870) TYE (test code = TYE) Association of [...] tests). Lab Interpretation Abnormal (test code = 83012-8) [facility] 10:58:59 Test Item Value Reference Range Interpretation Comments MAGNESIUM (test code = 2639318022) 2.0 mg/dL 1.7-2.4 Lab Interpretation (test code = Normal 31618-7) [facility] 10:58:59 Test Item Value Reference Range Interpretation Comments PHOSPHORUS (test code = 9366409513) 4.5 mg/dL 2.5-5.0 Lab Interpretation (test code = Normal 74041-8) [facility]22-[facility]-29 01:36:26 Test Item Value Reference Range Interpretation Comments Height (test code = in 3292949972) Weight (test code = lbs 0865610182) Systolic BP (test code mmHg = 2907114882) Diastolic BP (test code mmHg = 5302122224) Heart Rate (test code = bpm 4827956154) LVOT stroke volume 48.20 cm3 (test code = 4297489899) EF(Teich) (test code = 36.30 % 8390565898) LVIDD (test code = 4.10 cm 2534487841) LVIDS (test code = 3.40 cm 6898786168) Left Ventricular End 48.0 mL Systolic Volume by Teichholz Method (test code = 3404617) Left Ventricular End 75.4 mL Diastolic Volume by Teichholz Method (test code = 0831672) IVS (test code = 1.03 cm 4294765232) LVPWD (test code = 1.08 cm 7360113699) LVOT diameter (test 2.30 cm code = 1237453354) LVOT area (test code = 4.10 cm2 0862435634) FS (test code = 17 % 0334595128) MV Peak E Pasha (test 46.1 cm/s code = 7789978795) MV Peak A Pasha (test 71.3 cm/s code = 8469975731) E/A ratio (test code = ratio 9035705612) E wave decelartion time 0.24 s (test code = 2075535743) MV E/e' septal (test 4.5 cm/s code = 1947861112) LA Volume Index (BP) 14.6 mL/m2 (test code = 8131237934) LA volume (BP) (test 29.7 mL code = 6084149566) LVOT peak pasha (test 68.1 cm/s code = 0997431900) LVOT mn grad (test code mmHg = 9155871965) BSA (test code = 2.04 m2 5042758207) LA size (test code = 3.4 cm 9037011912) LAV(MOD-sp2) (test code 20.50 mL = 9286038316) LAV(MOD-sp4) (test code 31.20 mL = 7483986739) Tapse (test code = 1.76 cm 3109042250) AV LVOT peak gradient mmHg (test code = 0358455468) LVOT peak VTI (test 11.6 cm code = 3072081394) LV V1 mean (test code = 43.60 cm/s 3540590863) MV Prop V (test code = 39.10 cm/s 0698473417) Ao root diam (test code 3.70 cm = 1333002481) Aortic root (test code 3.7 cm = 4778206630) Ao root annulus (test 3.7 cm code = 5815462391) PW (test code = 1.08 cm 0.6-1.0 8550657229) EF - 2D (test code = 36.30 % 41643320) Interventricular Septum 1.03 cm Diastolic Thickness by 2D (test code = 6447438) Radiology Study observation (narrative) (test code = 68372-5) TYE (test code = TYE) ?Left?Ventricle: This is a technically difficut study the LV cannot be visualized well despite contrast ?overall the LVEF seems to be moderately to severely reduced ?There seem to be impaired relaxation ?Right?Ventricle: Right ventricle is normal in size and function. ?IVC/SVC: IVC diameter is less than or equal to 21 mm and decreases greater than 50% during inspiration; therefore the estimated right atrial pressure is normal (~0-5 mmHg). Left VentricleThis is a technically difficut studythe LV cannot be visualized well despite contrast overall the LVEF seems to be moderately to severely reduced There seem to be impaired relaxationRight VentricleRight ventricle is normal in size and function.Left AtriumNot well visualized.Right AtriumNot well visualized.IVC/SVCIVC diameter is less than or equal to 21 mm and decreases greater than 50% during inspiration; therefore the estimated right atrial pressure is normal (~0-5 mmHg).Mitral ValveMitral valve structure is normal. No transvalvular regurgitation.Tricuspi d ValveNot well visualized. No transvalvular regurgitation.Aortic ValveNot well visualized. No transvalvular regurgitation.Pulmonic ValveNot well visualized.Ascending AortaNormal sized sinus of Valsalva.PericardiumNo pericardial effusion. Epicardial fat pad.Study DetailsA complete echocardiogram was performed using 2D, color flow Doppler and spectral Doppler. 5 mL of Lumason ultrasound enhancing agent used. [facility] WITH [id number] 17:18:02 Test Item Value Reference Range Interpretation Comments WBC (test code = See_Comment H [Automated 6690-2) message] The system which generated this result transmit missy reference range : 4.20 - 10.70 10*3/?L. The reference range was not used to interpret this result as normal/abnormal . RBC (test code = See_Comment L [Automated 789-8) message] The system which generated this result transmit msisy reference range : 4.26 - 5.52 10*6/?L. The reference range was not used to interpret this result as normal/abnormal . HGB (test code = 9.4 g/dL 12.2-16.4 L 718-7) HCT (test code = 27.6 % 38.4-49.3 L 4544-3) MCV (test code = 84.1 fL 81.7-95.6 787-2) MCH (test code = 28.7 pg 26.1-32.7 785-6) MCHC (test code = 34.1 g/dL 31.2-35.0 786-4) RDW-SD (test code = 37.7 fL 38.5-51.6 L 83501-5) RDW-CV (test code = 12.4 % 12.1-15.4 788-0) PLT (test code = See_Comment [Automated 777-3) message] The system which generated this result transmit missy reference range : 150 - 328 10*3/ ?L. The reference range was not u sed to interpret th is result as normal/abnormal . MPV (test code = 11.0 fL 9.8-13.0 79636-1) NRBC/100 WBC (test See_Comment [Automat ed code = 6969675434) message] The system which generated this result transmit missy reference range : 0.0 - 10.0 /100 WBCs. The reference range was not used to interpret this result as normal/abnormal . NRBC x10^3 (test code See_Comment [Auto mated = 2897452027) message] The system which generated this result transmit missy reference range : 10*3/?L. The reference range was not used to interpret this result as normal/abnormal . GRAN MAT (NEUT) % 78.0 % (test code = 770-8) IMM GRAN % (test code 5.50 % = 1034103812) LYMPH % (test code = 8.2 % 736-9) MONO % (test code = 5.7 % 5905-5) EOS % (test code = 2.1 % 713-8) BASO % (test code = 0.5 % 706-2) GRAN MAT x10^3(ANC) 11.45 10*3/uL 1.99-6.95 H (test code = 7657722639) IMM GRAN x10^3 (test 0.81 10*3/uL 0.00-0.06 H code = 3299302956) LYMPH x10^3 (test code 1.21 10*3/uL 1.09-3.23 = 731-0) MONO x10^3 (test code 0.84 10*3/uL 0.36-1.02 = 742-7) EOS x10^3 (test code = 0.31 10*3/uL 0.06-0.53 711-2) BASO x10^3 (test code 0.07 10*3/uL 0.01-0.09 = 704-7) Lab Interpretation Abnormal (test code = 60753-1) [facility] METABOLIC PANEL (NA, K, CL, CO2, GLUCOSE, BUN, CREATININE, CA)2022-03-28 16:58:54 Test Item Value Reference Range Interpretation Comments NA (test code = 139 mmol/L 135-145 9126772780) K (test code = 4.6 mmol/L 3.5-5.0 5397381751) CL (test code = 104 mmol/L 98-108 2510685384) CO2 TOTAL (test code = 30 mmol/L 23-31 6080432621) AGAP (test code = 2-16 1808275513) BUN (test code = 22 mg/dL 7-23 2877247550) GLUCOSE (test code = 132 mg/dL 70-110 H 0452006076) CREATININE (test code = 1.01 mg/dL 0.60-1.25 3406767049) CALCIUM (test code = 8.0 mg/dL 8.6-10.6 L 3279773098) eGFR (test code = mL/min/1.73m2 1579925438) TYE (test code = TYE) Association of [...] tests). Lab Interpretation Abnormal (test code = 29515-0) [facility] 20:53:17 Test Item Value Reference Range Interpretation Comments NA (test code = 9512523358) 141 mmol/L 135-145 Lab Interpretation (test code = Normal 50590-7) [facility]TH CALCIUM [id number] 17:07:58 Test Item Value Reference Range Interpretation Comments PTH-INTACT (test code = 57.8 pg/mL 12.0-88.0 3858810812) PTH-CA Interpretation Furthe r clinical (test code = 3423406887) luciano a needed for interpretation. CALCIUM (test code = 7.6 mg/dL 8.6-10.6 L 4105761439) Lab Interpretation (test Abnormal code = 69820-1) [facility] [id number] 16:34:22 Test Item Value Reference Range Interpretation Comments IRON (test code = 6614883866) 55 ug/dL 50-160 TIBC (test code = 1233108332) 148 ug/dL 250-410 L % FE SAT (test code = 5670878165) 37 % 20-50 Lab Interpretation (test code = Abnormal 54541-2) [facility]2022-[facility]-25 16:25:23 Test Item Value Reference Range Interpretation Comments PHOSPHORUS (test code = 2551898885) 2.8 mg/dL 2.5-5.0 Lab Interpretation (test code = Normal 47385-4) [facility] METABOLIC PANEL (NA, K, CL, CO2, GLUCOSE, BUN, CREATININE, CA)2022-03-25 15:29:40 Test Item Value Reference Range Interpretation Comments NA (test code = 141 mmol/L 135-145 6047991343) K (test code = 3.9 mmol/L 3.5-5.0 6107987571) CL (test code = 108 mmol/L 98-108 3652236392) CO2 TOTAL (test code = 26 mmol/L 23-31 3075834067) AGAP (test code = 2-16 7070093732) BUN (test code = 29 mg/dL 7-23 H 4858040241) GLUCOSE (test code = 142 mg/dL 70-110 H 0995855174) CREATININE (test code = 1.02 mg/dL 0.60-1.25 2635772307) CALCIUM (test code = 7.6 mg/dL 8.6-10.6 L 4818891719) eGFR (test code = mL/min/1.73m2 8713854996) TYE (test code = TYE) Association of [...] tests). Lab Interpretation Abnormal (test code = 67194-6) [facility] Panel 20 + Lactic [id number] 11:39:09 Test Item Value Reference Range Interpretation Comments PH (test code = 2) 7.35-7.45 H PCO2 (test code = See_Comment [Automate d 0015094681) message] The sy stem which generated this result transmitted reference range : 35 - 45 mmHg. The reference range was not used to interpret this result as normal/abnormal . PO2 (test code = See_Comment [Automated 6715746720) message] The sy stem which generated this result transmitted reference range : 80 - 100 mmHg. The reference range was not used to interpret this result as normal/abnormal . HCO3 (test code = See_Comment [Automate d 5772295229) message] The sy stem which generated this result transmitted reference range : 22 - 26 mEq/L. The reference range was not used to interpret this result as normal/abnormal . BE (test code = See_Comment [Automated 8090319077) message] The sy stem which generated this result transmitted reference range : -3.0 - 3.0 mEq/ L. The reference r mey was not used to interpret this result as normal/abnormal . THB (test code = 12.9 g/dL 13.5-18.0 L 9281452773) %O2HB (test code = 96.4 % 94.0-99.0 2576439356) %COHB ART (test code = 0.3 % 0.0-1.5 6185743470) %METHB ART (test code = 0.0 % 0.4-1.5 L 1818401110) VOL%O2 ART (test code = 17.5 % 15.0-23.0 8688693622) NA (test code = 140 mmol/L 135-145 4392212039) K+ (test code = 4.1 mmol/L 3.5-5.0 2529529555) AC CA IONZ (test code = 4.40 mg/dL 4.50-5.30 L 5214088010) GLUCOSE (test code = 112 mg/dL 70-110 H 3246231597) LACTIC ACID (test code 1.74 mmol/L 0.50-2.20 = 0156712839) Lab Interpretation Abnormal (test code = 76384-9) [facility] METABOLIC PANEL (NA, K, CL, CO2, GLUCOSE, BUN, CREATININE, CA)2022-03-25 11:24:09 Test Item Value Reference Range Interpretation Comments NA (test code = 142 mmol/L 135-145 1634723255) K (test code = 4.2 mmol/L 3.5-5.0 3523790889) CL (test code = 109 mmol/L 98-108 H 2211807225) CO2 TOTAL (test code = 28 mmol/L 23-31 9326787451) AGAP (test code = 2-16 3518775584) BUN (test code = 31 mg/dL 7-23 H 8316392072) GLUCOSE (test code = 125 mg/dL 70-110 H 7444009067) CREATININE (test code = 1.06 mg/dL 0.60-1.25 1197773365) CALCIUM (test code = 7.8 mg/dL 8.6-10.6 L 8673987945) eGFR (test code = mL/min/1.73m2 3871627139) TYE (test code = TYE) Association of [...] tests). Lab Interpretation Abnormal (test code = 63887-8) [facility] WITH [id number] 10:25:42 Test Item Value Reference Range Interpretation Comments WBC (test code = See_Comment H [Automated 9890-2) message] The sy stem which generated this result transmitted reference range : 4.20 - 10.70 10*3/?L. The reference range was not used to interpret this result as normal/abnormal . RBC (test code = See_Comment L [Automated 889-8) message] The sy stem which generated this result transmitted reference range : 4.26 - 5.52 10*6/?L. The reference range was not used to interpret this result as normal/abnormal . HGB (test code = 10.1 g/dL 12.2-16.4 L 718-7) HCT (test code = 30.2 % 38.4-49.3 L 4544-3) MCV (test code = 86.5 fL 81.7-95.6 787-2) MCH (test code = 28.9 pg 26.1-32.7 785-6) MCHC (test code = 33.4 g/dL 31.2-35.0 786-4) RDW-SD (test code = 40.7 fL 38.5-51.6 13986-3) RDW-CV (test code = 13.0 % 12.1-15.4 788-0) PLT (test code = See_Comment [Automated 777-3) message] The sy stem which generated this result transmitted reference range : 150 - 328 10*3/ ?L. The reference r mey was not used to interpret this result as normal/abnormal . MPV (test code = 10.5 fL 9.8-13.0 78233-2) NRBC/100 WBC (test See_Comment [Automat ed code = 8121004477) message] The system which generated this result transmitted reference range : 0.0 - 10.0 /100 WBCs. The refer ence range was not u sed to interpret th is result as normal/abnormal . NRBC x10^3 (test code See_Comment [Auto mated = 8471218494) message] The s ystem which generated this result transmitted reference range : 10*3/?L. The reference range was not used to interpret this result as normal/abnormal . GRAN MAT (NEUT) % 71.6 % (test code = 770-8) IMM GRAN % (test code 5.50 % = 9997925599) LYMPH % (test code = 13.1 % 736-9) MONO % (test code = 6.3 % 5905-5) EOS % (test code = 3.1 % 713-8) BASO % (test code = 0.4 % 706-2) GRAN MAT x10^3(ANC) 9.43 10*3/uL 1.99-6.95 H (test code = 4639118077) IMM GRAN x10^3 (test 0.73 10*3/uL 0.00-0.06 H code = 8037434993) LYMPH x10^3 (test code 1.72 10*3/uL 1.09-3.23 = 731-0) MONO x10^3 (test code 0.83 10*3/uL 0.36-1.02 = 742-7) EOS x10^3 (test code = 0.41 10*3/uL 0.06-0.53 711-2) BASO x10^3 (test code 0.05 10*3/uL 0.01-0.09 = 704-7) Lab Interpretation Abnormal (test code = 62781-0) [facility] + Lactic [id number] 09:49:32 Test Item Value Reference Range Interpretation Comments PH (test code = 2) 7.35-7.45 H PCO2 (test code = See_Comment [Automate d 3445199501) message] The sy stem which generated this result transmitted reference range : 35 - 45 mmHg. The reference range was not used to interpret this result as normal/abnormal . PO2 (test code = See_Comment L [Automated 6309061260) message] The sy stem which generated this result transmitted reference range : 80 - 100 mmHg. The reference range was not used to interpret this result as normal/abnormal . HCO3 (test code = See_Comment [Automate d 5394537492) message] The sy stem which generated this result transmitted reference range : 22 - 26 mEq/L. The reference range was not used to interpret this result as normal/abnormal . BE (test code = See_Comment H [Automated 2299910694) message] The sy stem which generated this result transmitted reference range : -3.0 - 3.0 mEq/ L. The reference r mey was not used to interpret this result as normal/abnormal . THB (test code = 13.1 g/dL 13.5-18.0 L 9847195941) %O2HB (test code = 94.2 % 94.0-99.0 2957659325) %COHB ART (test code = 0.2 % 0.0-1.5 4276965768) %METHB ART (test code = 0.1 % 0.4-1.5 L 3626011743) VOL%O2 ART (test code = 17.4 % 15.0-23.0 7105615026) NA (test code = 140 mmol/L 135-145 4616308479) K+ (test code = 4.1 mmol/L 3.5-5.0 1180535731) AC CA IONZ (test code = 4.60 mg/dL 4.50-5.30 5883231665) GLUCOSE (test code = 120 mg/dL 70-110 H 9546419761) LACTIC ACID (test code 1.64 mmol/L 0.50-2.20 = 2286869466) Lab Interpretation Abnormal (test code = 60153-1) [facility] + Lactic [id number] 11:24:46 Test Item Value Reference Range Interpretation Comments PH (test code = 2) 7.35-7.45 PCO2 (test code = See_Comment [Automate d 5800970752) message] The sy stem which generated this result transmitted reference range : 35 - 45 mmHg. The reference range was not used to interpret this result as normal/abnormal . PO2 (test code = See_Comment [Automated 4861122527) message] The sy stem which generated this result transmitted reference range : 80 - 100 mmHg. The reference range was not used to interpret this result as normal/abnormal . HCO3 (test code = See_Comment H [Automate d [id number]) message] The sy stem which generated this result transmitted reference range : 22 - 26 mEq/L. The reference range was not used to interpret this result as normal/abnormal . BE (test code = See_Comment H [Automated [id number]) message] The sy stem which generated this result transmitted reference range : -3.0 - 3.0 mEq/ L. The reference r mey was not used to interpret this result as normal/abnormal . THB (test code = 11.2 g/dL 13.5-18.0 L 9920493850) %O2HB (test code = 96.4 % 94.0-99.0 9956661447) %COHB ART (test code = 0.3 % 0.0-1.5 6513282946) %METHB ART (test code = 0.0 % 0.4-1.5 L 9304982174) VOL%O2 ART (test code = 15.3 % 15.0-23.0 4030761037) NA (test code = 148 mmol/L 135-145 H 6853034950) K+ (test code = 3.8 mmol/L 3.5-5.0 8279036271) AC CA IONZ (test code = 4.60 mg/dL 4.50-5.30 5932074754) GLUCOSE (test code = 168 mg/dL 70-110 H 2058769074) LACTIC ACID (test code 1.44 mmol/L 0.50-2.20 = 8126321295) Lab Interpretation Abnormal (test code = 64244-9) [facility] WITH [id number] 10:02:11 Test Item Value Reference Range Interpretation Comments WBC (test code = See_Comment H [Automated 6690-2) message] The sy stem which [...] as normal/abnormal . HGB (test code = 9.7 g/dL 12.2-16.4 L 718-7) HCT (test code = 29.7 % 38.4-49.3 L 4544-3) MCV (test code = 88.9 fL 81.7-95.6 787-2) MCH (test code = 29.0 pg 26.1-32.7 785-6) MCHC (test code = 32.7 g/dL 31.2-35.0 786-4) RDW-SD (test code = 44.0 fL 38.5-51.6 43370-1) RDW-CV (test code = 13.6 % 12.1-15.4 788-0) PLT (test code = See_Comment [Automated 777-3) message] The sy stem which generated this result transmitted reference range : 150 - 328 10*3/ ?L. The reference r mey was not used to interpret this result as normal/abnormal . MPV (test code = 10.3 fL 9.8-13.0 98144-7) NRBC/100 WBC (test See_Comment [Automat ed code = 7634165976) message] The system which generated this result transmitted reference range : 0.0 - 10.0 /100 WBCs. The refer ence range was not u sed to interpret th is result as normal/abnormal . NRBC x10^3 (test code See_Comment [Auto mated = 8385429478) message] The s ystem which generated this result transmitted reference range : 10*3/?L. The reference range was not used to interpret this result as normal/abnormal . GRAN MAT (NEUT) % 72.3 % (test code = 770-8) IMM GRAN % (test code 4.40 % = 2668623579) LYMPH % (test code = 13.8 % 736-9) MONO % (test code = 7.2 % 5905-5) EOS % (test code = 1.9 % 713-8) BASO % (test code = 0.4 % 706-2) GRAN MAT x10^3(ANC) 8.07 10*3/uL 1.99-6.95 H (test code = 7526559003) IMM GRAN x10^3 (test 0.49 10*3/uL 0.00-0.06 H code = 5935635340) LYMPH x10^3 (test code 1.54 10*3/uL 1.09-3.23 = 731-0) MONO x10^3 (test code 0.80 10*3/uL 0.36-1.02 = 742-7) EOS x10^3 (test code = 0.21 10*3/uL 0.06-0.53 711-2) BASO x10^3 (test code 0.05 10*3/uL 0.01-0.09 = 704-7) Lab Interpretation Abnormal (test code = 52626-8) [facility] METABOLIC PANEL (NA, K, CL, CO2, GLUCOSE, BUN, CREATININE, CA)2022-03-24 09:46:29 Test Item Value Reference Range Interpretation Comments NA (test code = 150 mmol/L 135-145 H 4319757655) K (test code = 3.6 mmol/L 3.5-5.0 8967096992) CL (test code = 114 mmol/L 98-108 H 8215509449) CO2 TOTAL (test code = 29 mmol/L 23-31 6278156539) AGAP (test code = 2-16 8463695957) BUN (test code = 48 mg/dL 7-23 H 0374880615) GLUCOSE (test code = 152 mg/dL 70-110 H 7806408590) CREATININE (test code = 1.43 mg/dL 0.60-1.25 H 1150132737) CALCIUM (test code = 7.6 mg/dL 8.6-10.6 L 4509533539) eGFR (test code = mL/min/1.73m2 7141839737) TYE (test code = TYE) Association of [...] tests). Lab Interpretation Abnormal (test code = 43770-1) [facility] Lactic [id number] 09:22:56 Test Item Value Reference Range Interpretation Comments PH (test code = 2) 7.35-7.45 PCO2 (test code = See_Comment [Automate d 5065936269) message] The sy stem which generated this result transmitted reference range : 35 - 45 mmHg. The reference range was not used to interpret this result as normal/abnormal . PO2 (test code = See_Comment L [Automated 5203777273) message] The sy stem which generated this result transmitted reference range : 80 - 100 mmHg. The reference range was not used to interpret this result as normal/abnormal . HCO3 (test code = See_Comment H [Automate d 9540329322) message] The sy stem which generated this result transmitted reference range : 22 - 26 mEq/L. The reference range was not used to interpret this result as normal/abnormal . BE (test code = See_Comment [Automated 7041215286) message] The sy stem which generated this result transmitted reference range : -3.0 - 3.0 mEq/ L. The reference r mey was not used to interpret this result as normal/abnormal . THB (test code = 11.3 g/dL 13.5-18.0 L 1780333747) %O2HB (test code = 94.9 % 94.0-99.0 6292008338) %COHB ART (test code = 0.3 % 0.0-1.5 1809970041) %METHB ART (test code = 0.0 % 0.4-1.5 L 7628572653) VOL%O2 ART (test code = 15.2 % 15.0-23.0 6743985495) NA (test code = 149 mmol/L 135-145 H 8363109099) K+ (test code = 3.8 mmol/L 3.5-5.0 4416691458) AC CA IONZ (test code = 4.60 mg/dL 4.50-5.30 7294039634) GLUCOSE (test code = 153 mg/dL 70-110 H 4379430277) LACTIC ACID (test code 1.59 mmol/L 0.50-2.20 = 9597971439) Lab Interpretation Abnormal (test code = 33054-3) [facility] WITH [id number] 09:12:58 Test Item Value Reference Range Interpretation Comments WBC (test code = See_Comment H [Automated 6690-2) message] The system which generated this result transmit missy reference range : 4.20 - 10.70 10*3/?L. The reference range was not used to interpret this result as normal/abnormal . RBC (test code = See_Comment L [Automated 789-8) message] The system which generated this result transmit missy reference range : 4.26 - 5.52 10*6/?L. The reference range was not used to interpret this result as normal/abnormal . HGB (test code = 10.8 g/dL 12.2-16.4 L 718-7) HCT (test code = 32.9 % 38.4-49.3 L 4544-3) MCV (test code = 88.0 fL 81.7-95.6 787-2) MCH (test code = 28.9 pg 26.1-32.7 785-6) MCHC (test code = 32.8 g/dL 31.2-35.0 786-4) RDW-SD (test code = 43.8 fL 38.5-51.6 27859-5) RDW-CV (test code = 13.6 % 12.1-15.4 788-0) PLT (test code = See_Comment [Automated 777-3) message] The system which generated this result transmit missy reference range : 150 - 328 10*3/ ?L. The reference range was not u sed to interpret th is result as normal/abnormal . MPV (test code = 10.4 fL 9.8-13.0 05073-3) NRBC/100 WBC (test See_Comment [Automat ed code = 9853707282) message] The system which generated this result transmit missy reference range : 0.0 - 10.0 /100 WBCs. The reference range was not used to interpret this result as normal/abnormal . NRBC x10^3 (test code See_Comment [Auto mated = 0260459023) message] The system which generated this result transmit missy reference range : 10*3/?L. The reference range was not used to interpret this result as normal/abnormal . GRAN MAT (NEUT) % 80.7 % (test code = 770-8) IMM GRAN % (test code 2.80 % = 1112354986) LYMPH % (test code = 8.7 % 736-9) MONO % (test code = 7.1 % 5905-5) EOS % (test code = 0.4 % 713-8) BASO % (test code = 0.3 % 706-2) GRAN MAT x10^3(ANC) 10.94 10*3/uL 1.99-6.95 H (test code = 5046299118) IMM GRAN x10^3 (test 0.38 10*3/uL 0.00-0.06 H code = 2471575225) LYMPH x10^3 (test code 1.18 10*3/uL 1.09-3.23 = 731-0) MONO x10^3 (test code 0.97 10*3/uL 0.36-1.02 = 742-7) EOS x10^3 (test code = 0.06 10*3/uL 0.06-0.53 711-2) BASO x10^3 (test code 0.04 10*3/uL 0.01-0.09 = 704-7) Lab Interpretation Abnormal (test code = 97519-9) [facility] METABOLIC PANEL (NA, K, CL, CO2, GLUCOSE, BUN, CREATININE, CA)2022-03-23 09:00:54 Test Item Value Reference Range Interpretation Comments NA (test code = 155 mmol/L 135-145 H 8047780957) K (test code = 3.4 mmol/L 3.5-5.0 L 0164836746) CL (test code = 118 mmol/L 98-108 H 7592268278) CO2 TOTAL (test code = 27 mmol/L 23-31 8644660523) AGAP (test code = 2-16 0160701261) BUN (test code = 65 mg/dL 7-23 H 7729398379) GLUCOSE (test code = 157 mg/dL 70-110 H 3525698644) CREATININE (test code = 2.25 mg/dL 0.60-1.25 H 4718506914) CALCIUM (test code = 8.4 mg/dL 8.6-10.6 L 6783190773) eGFR (test code = mL/min/1.73m2 9424677494) TYE (test code = TYE) Association of [...] tests). Lab Interpretation Abnormal (test code = 02109-5) [facility]54 Test Item Value Reference Range Interpretation Comments MAGNESIUM (test code = 9318360854) 2.9 mg/dL 1.7-2.4 H Lab Interpretation (test code = Abnormal 32157-7) [facility] 09:00:54 Test Item Value Reference Range Interpretation Comments PHOSPHORUS (test code = 9493190539) 3.3 mg/dL 2.5-5.0 Lab Interpretation (test code = Normal 87181-7) [facility] [id number] 09:00:54 Test Item Value Reference Range Interpretation Comments CK (test code = 3480241754) 58 U/L 33-194 Lab Interpretation (test code = Normal 91825-3) [facility] [id number] 00:24:26 Test Item Value Reference Range Interpretation Comments CK (test code = 1632263436) 58 U/L 33-194 Lab Interpretation (test code = Normal 98873-0) [facility] (NA, K, CL, CO2, GLUCOSE, BUN, CREATININE, CA)2022-03-22 09:09:04 Test Item Value Reference Range Interpretation Comments NA (test code = 151 mmol/L 135-145 H 6030853694) K (test code = 3.4 mmol/L 3.5-5.0 L 6920239619) CL (test code = 115 mmol/L 98-108 H 2145583191) CO2 TOTAL (test code = 24 mmol/L 23-31 9139743454) AGAP (test code = 2-16 2858913876) BUN (test code = 68 mg/dL 7-23 H 0807983688) GLUCOSE (test code = 138 mg/dL 70-110 H 1139561892) CREATININE (test code = 3.58 mg/dL 0.60-1.25 H 4370954499) CALCIUM (test code = 8.6 mg/dL 8.6-10.6 7288483113) eGFR (test code = mL/min/1.73m2 5265329663) TYE (test code = YTE) Association of Glomerular Filtration Rate (GFR) and [...] tests). Lab Interpretation Abnormal (test code = 72191-5) [facility] WITH [id number] 08:49:01 Test Item Value Reference Range Interpretation Comments WBC (test code = See_Comment H [Automated 6690-2) message] The system which generated this result transmit missy reference range : 4.20 - 10.70 10*3/?L. The reference range was not used to interpret this result as normal/abnormal . RBC (test code = See_Comment L [Automated 789-8) message] The system which generated this result transmit missy reference range : 4.26 - 5.52 10*6/?L. The reference range was not used to interpret this result as normal/abnormal . HGB (test code = 11.4 g/dL 12.2-16.4 L 718-7) HCT (test code = 33.6 % 38.4-49.3 L 4544-3) MCV (test code = 85.5 fL 81.7-95.6 787-2) MCH (test code = 29.0 pg 26.1-32.7 785-6) MCHC (test code = 33.9 g/dL 31.2-35.0 786-4) RDW-SD (test code = 42.2 fL 38.5-51.6 82987-5) RDW-CV (test code = 13.4 % 12.1-15.4 788-0) PLT (test code = See_Comment [Automated 777-3) message] The system which generated this result transmit missy reference range : 150 - 328 10*3/ ?L. The reference range was not u sed to interpret th is result as normal/abnormal . MPV (test code = 10.3 fL 9.8-13.0 89815-2) NRBC/100 WBC (test See_Comment [Automat ed code = 7118813632) message] The system which generated this result transmit missy reference range : 0.0 - 10.0 /100 WBCs. The reference range was not used to interpret this result as normal/abnormal . NRBC x10^3 (test code See_Comment [Auto mated = 7786801651) message] The system which generated this result transmit missy reference range : 10*3/?L. The reference range was not used to interpret this result as normal/abnormal . GRAN MAT (NEUT) % 85.1 % (test code = 770-8) IMM GRAN % (test code 2.00 % = 1027085929) LYMPH % (test code = 5.9 % 736-9) MONO % (test code = 6.8 % 5905-5) EOS % (test code = 0.0 % 713-8) BASO % (test code = 0.2 % 706-2) GRAN MAT x10^3(ANC) 14.95 10*3/uL 1.99-6.95 H (test code = 6693631800) IMM GRAN x10^3 (test 0.36 10*3/uL 0.00-0.06 H code = 3476002377) LYMPH x10^3 (test code 1.03 10*3/uL 1.09-3.23 L = 731-0) MONO x10^3 (test code 1.19 10*3/uL 0.36-1.02 H = 742-7) EOS x10^3 (test code = 0.06-0.53 L 711-2) BASO x10^3 (test code 0.04 10*3/uL 0.01-0.09 = 704-7) Lab Interpretation Abnormal (test code = 38926-7) [facility] + Lactic [id number] 02:36:04 Test Item Value Reference Range Interpretation Comments PH (test code = 2) 7.35-7.45 PCO2 (test code = See_Comment [Automate d 2180042867) message] The sy stem which generated this result transmitted reference range : 35 - 45 mmHg. The reference range was not used to interpret this result as normal/abnormal . PO2 (test code = See_Comment [Automated 6346625160) message] The sy stem which generated this result transmitted reference range : 80 - 100 mmHg. The reference range was not used to interpret this result as normal/abnormal . HCO3 (test code = See_Comment [Automate d 5324698021) message] The sy stem which generated this result transmitted reference range : 22 - 26 mEq/L. The reference range was not used to interpret this result as normal/abnormal . BE (test code = See_Comment [Automated 7569288878) message] The sy stem which generated this result transmitted reference range : -3.0 - 3.0 mEq/ L. The reference r mey was not used to interpret this result as normal/abnormal . THB (test code = 12.8 g/dL 13.5-18.0 L 1326862662) %O2HB (test code = 96.4 % 94.0-99.0 2249912958) %COHB ART (test code = 0.0 % 0.0-1.5 6913542068) %METHB ART (test code = 0.3 % 0.4-1.5 L 9497961907) VOL%O2 ART (test code = 17.4 % 15.0-23.0 7116894992) NA (test code = 148 mmol/L 135-145 H 6557291173) K+ (test code = 3.5 mmol/L 3.5-5.0 6830118715) AC CA IONZ (test code = 4.60 mg/dL 4.50-5.30 1306124833) GLUCOSE (test code = 148 mg/dL 70-110 H 9978338791) LACTIC ACID (test code 1.80 mmol/L 0.50-2.20 = 6341701928) Lab Interpretation Abnormal (test code = 98000-7) [facility] + Lactic [id number] 02:36:04 Test Item Value Reference Range Interpretation Comments PH (test code = 2) 7.35-7.45 PCO2 (test code = See_Comment [Automate d 8218681448) message] The sy stem which generated this result transmitted reference range : 35 - 45 mmHg. The reference range was not used to interpret this result as normal/abnormal . PO2 (test code = See_Comment [Automated 0075755186) message] The sy stem which generated this result transmitted reference range : 80 - 100 mmHg. The reference range was not used to interpret this result as normal/abnormal . HCO3 (test code = See_Comment [Automate d 8154969126) message] The sy stem which generated this result transmitted reference range : 22 - 26 mEq/L. The reference range was not used to interpret this result as normal/abnormal . BE (test code = See_Comment [Automated 6459889586) message] The sy stem which generated this result transmitted reference range : -3.0 - 3.0 mEq/ L. The reference r mey was not used to interpret this result as normal/abnormal . THB (test code = 12.8 g/dL 13.5-18.0 L 0957679796) %O2HB (test code = 96.4 % 94.0-99.0 0273081940) %COHB ART (test code = 0.0 % 0.0-1.5 0868471497) %METHB ART (test code = 0.3 % 0.4-1.5 L 9878469969) VOL%O2 ART (test code = 17.4 % 15.0-23.0 0086162733) NA (test code = 148 mmol/L 135-145 H 9397333242) K+ (test code = 3.5 mmol/L 3.5-5.0 5110476179) AC CA IONZ (test code = 4.60 mg/dL 4.50-5.30 6265962430) GLUCOSE (test code = 148 mg/dL 70-110 H 3986128978) LACTIC ACID (test code 1.80 mmol/L 0.50-2.20 = 1971227945) Lab Interpretation Abnormal (test code = 99766-7) [facility] + Lactic [id number] 22:37:24 Test Item Value Reference Range Interpretation Comments PH (test code = 2) 7.35-7.45 PCO2 (test code = See_Comment L [Automate d 0929730325) message] The sy stem which generated this result transmitted reference range : 35 - 45 mmHg. The reference range was not used to interpret this result as normal/abnormal . PO2 (test code = See_Comment L [Automated 1178062482) message] The sy stem which generated this result transmitted reference range : 80 - 100 mmHg. The reference range was not used to interpret this result as normal/abnormal . HCO3 (test code = See_Comment L [Automate d 9943400989) message] The sy stem which generated this result transmitted reference range : 22 - 26 mEq/L. The reference range was not used to interpret this result as normal/abnormal . BE (test code = See_Comment [Automated 2329069192) message] The sy stem which generated this result transmitted reference range : -3.0 - 3.0 mEq/ L. The reference r mey was not used to interpret this result as normal/abnormal . THB (test code = 14.7 g/dL 13.5-18.0 4291716013) %O2HB (test code = 92.6 % 94.0-99.0 L 7314597707) %COHB ART (test code = 0.2 % 0.0-1.5 5376965080) %METHB ART (test code = 0.3 % 0.4-1.5 L 6695051293) VOL%O2 ART (test code = 19.1 % 15.0-23.0 2639298474) NA (test code = 146 mmol/L 135-145 H 8877472273) K+ (test code = 3.6 mmol/L 3.5-5.0 7641636053) AC CA IONZ (test code = 4.60 mg/dL 4.50-5.30 2069570925) GLUCOSE (test code = 140 mg/dL 70-110 H 0546553167) LACTIC ACID (test code 1.87 mmol/L 0.50-2.20 = 7873661370) Lab Interpretation Abnormal (test code = 24902-4) [facility] + Lactic [id number] 22:37:24 Test Item Value Reference Range Interpretation Comments PH (test code = 2) 7.35-7.45 PCO2 (test code = See_Comment L [Automate d 3515274393) message] The sy stem which generated this result transmitted reference range : 35 - 45 mmHg. The reference range was not used to interpret this result as normal/abnormal . PO2 (test code = See_Comment L [Automated 4922041690) message] The sy stem which generated this result transmitted reference range : 80 - 100 mmHg. The reference range was not used to interpret this result as normal/abnormal . HCO3 (test code = See_Comment L [Automate d 6094161258) message] The sy stem which generated this result transmitted reference range : 22 - 26 mEq/L. The reference range was not used to interpret this result as normal/abnormal . BE (test code = See_Comment [Automated 3032115012) message] The sy stem which generated this result transmitted reference range : -3.0 - 3.0 mEq/ L. The reference r mey was not used to interpret this result as normal/abnormal . THB (test code = 14.7 g/dL 13.5-18.0 5730211256) %O2HB (test code = 92.6 % 94.0-99.0 L 1584750555) %COHB ART (test code = 0.2 % 0.0-1.5 3342312146) %METHB ART (test code = 0.3 % 0.4-1.5 L 0122764017) VOL%O2 ART (test code = 19.1 % 15.0-23.0 0046080941) NA (test code = 146 mmol/L 135-145 H 2715151239) K+ (test code = 3.6 mmol/L 3.5-5.0 8694672611) AC CA IONZ (test code = 4.60 mg/dL 4.50-5.30 1105788608) GLUCOSE (test code = 140 mg/dL 70-110 H 3539931513) LACTIC ACID (test code 1.87 mmol/L 0.50-2.20 = 6303281365) Lab Interpretation Abnormal (test code = 85363-5) [facility] [id number] 12:02:57 Test Item Value Reference Range Interpretation Comments Blood Culture-Aerobic No organisms No growth Previo us (test code = 33910-4) isolated prelim inary verified result was Culture In Progress on 03/16/2022 at 0901 CSTPrevi s preliminary verified result was No growth a t 24 hours on 03/17/2022 at 0601 CSTPreviou s preliminary verified result was No growth a t 48 hours on 03/18/2022 at 0601 CSTPreviou s preliminary verified result was No growth a t 72 hours on 03/19/2022 at 0601 [facility] Blood No organisms No growth Previous Culture-Anaerobic isolated preliminar y (test code = 72885-6) verifi ed result was Culture In Progress on 03/16/2022 at 0901 CSTPreviou s preliminary verified result was No growth a t 24 hours on 03/17[facility]2022 [facility] result was No growth a t 48 hours on 03/18/2022 at 0601 CSTPreviou s preliminary verified result was No growth a t 72 hours on 03/19/2022 at 0601 [facility] Lab Interpretation Normal (test code = 51482-7) [facility] CULTURE [id number] 12:02:57 Test Item Value Reference Range Interpretation Comments Blood Culture-Aerobic No organisms No growth Previo us (test code = 82978-1) isolated prelim inary verified result was Culture In Progress on 03/16/2022 at 0901 CSTPreviou s preliminary verified result was No growth a t 24 hours on 03/17/2022 at 0601 CSTPreviou s preliminary verified result was No growth a t 48 hours on 03/18/2022 at 06 CSTPreviou s preliminary verified result was No growth a t 72 hours on 03/19/2022 at 0601 HOROLOGIST Blood No organisms No growth Previous Culture-Anaerobic isolated preliminar y (test code = 61325-3) verifi ed result was Culture In Progress on 03/16/2022 at 0901 CSTPreviou s preliminary verified result was No growth a t 24 hours on 03/17/2022 at 0601 CSTPreviou s preliminary verified result was No growth a t 48 hours on 03/18/2022 at 06 CSTPreviou s preliminary verified result was No growth a t 72 hours on 03/19/2022 at 0601 HOROLOGIST Lab Interpretation Normal (test code = 52838-2) [facility] CULTURE [id number] 12:02:57 Test Item Value Reference Range Interpretation Comments Blood Culture-Aerobic No organisms No growth Previo us (test code = 54623-6) isolated prelim inary verified result was Culture In Progress on 03/16/2022 at 0901 CSTPreviou s preliminary verified result was No growth a t 24 hours on 03/17/2022 at 0601 CSTPreviou s preliminary verified result was No growth a t 48 hours on 03/18/2022 at 0601 CSTPreviou s preliminary verified result was No growth a t 72 hours on 03/19/2022 at 0601 HOROLOGIST Blood No organisms No growth Previous Culture-Anaerobic isolated preliminar y (test code = 67647-0) verifi ed result was Culture In Progress [facility] result was No growth a t 24 hours on 03/17/[address] [place], [place] [address]Previ s preliminary verified result was No growth a t 48 hours on 03/18/[address] [place], [place] [address]Previ s preliminary verified result was No growth a t 72 hours on 03/19/[address] [place] [address] Lab Interpretation Normal (test code = 96623-8) [facility] [id number] 12:02:57 Test Item Value Reference Range Interpretation Comments Blood Culture-Aerobic No organisms No growth Previo us (test code = 20804-4) isolated prelim inary verified result was Culture In Progress on 03/[facility]2022 [facility] verified result was No growth a t 24 hours on 03/17/[address] [place], [place] [address]Previ s preliminary verified result was No growth a t 48 hours on 03/18/[address] [place], [place] [address]Previ s preliminary verified result was No growth a t 72 hours on 03/19/[address] [place] [address] Blood No organisms No growth Previous Culture-Anaerobic isolated preliminar y (test code = 68195-9) verifi ed result was Culture In Progress on 03/[facility]/2022 [facility] verified result was No growth a t 24 hours on 03/17/[address] [place], [place] [address]Previ s preliminary verified result was No growth a t 48 hours on 03/18/[address] [place], [place] [address]Previ s preliminary verified result was No growth a t 72 hours on 03/19/[address] [place] [address] Lab Interpretation Normal (test code = 96699-2) [facility]IT[facility] (THIAMINE), WHOLE [id number] 02:12:04 Test Item Value Reference Range Interpretation Comments Vitamin B1, Whole 86 nmol/L 70-180 INTERPRETI VE INFORMATION: Blood (test code = Vitamin B 1, Whole Blood 23524-8) This assay jason ures the concentration o f thiamine diphosphate (TD P), the primary active form of vitamin B1. Javed roximately 90 percent of v itamin B1 present in whol e blood is TDP. Thiamine a nd thiamine monophosphate, which comprise the re maining 10 percent, are no t measured. This test was d ashleyd and its perform ance characteristics determined by [facility]. It has not been cl eared or approved by the [place] Food and Drug Admini stration. This test was p erformed in a CLIA certifie d laboratory and is intended for clinical purposes.Perfor med By: [address] [id number] or Director: Jannette Gamez MD, PhD [facility]IT[facility] (THIAMINE), WHOLE [id number] 02:12:04 Test Item Value Reference Range Interpretation Comments Vitamin B1, Whole 86 nmol/L 70-180 INTERPRETI VE INFORMATION: Blood (test code = Vitamin B 1, Whole Blood 15426-1) This assay jason ures the concentration o f thiamine diphosphate (TD P), the primary active form of vitamin B1. Javed roximately 90 percent of v itamin B1 present in whol e blood is TDP. Thiamine a nd thiamine monophosphate, which comprise the re maining 10 percent, are no t measured. This test was d eveloped and its perform ance characteristics determined by [facility]. It has not been cl eared or approved by the Food and Drug Admini stration. This test was p erformed in a CLIA certifie d laboratory and is intended for clinical purposes.Perfor med By: [address] [id number] or Director: Jannette Gamez MD, PhD [facility] (NA, K, CL, CO2, GLUCOSE, BUN, CREATININE, CA)2022-03-20 12:02:28 Test Item Value Reference Range Interpretation Comments NA (test code = 143 mmol/L 135-145 3070926099) K (test code = 3.6 mmol/L 3.5-5.0 8423888382) CL (test code = 106 mmol/L 98-108 7291074188) CO2 TOTAL (test code = 28 mmol/L 23-31 5102083656) AGAP (test code = 2-16 1653005037) BUN (test code = 25 mg/dL 7-23 H 6832995613) GLUCOSE (test code = 107 mg/dL 70-110 6270871409) CREATININE (test code = 1.13 mg/dL 0.60-1.25 6091259016) CALCIUM (test code = 9.0 mg/dL 8.6-10.6 3222728483) eGFR (test code = mL/min/1.73m2 8168181450) TYE (test code = TYE) Association of [...] tests). Lab Interpretation Abnormal (test code = 15236-0) [facility] METABOLIC PANEL (NA, K, CL, CO2, GLUCOSE, BUN, CREATININE, CA)2022-03-20 12:02:28 Test Item Value Reference Range Interpretation Comments NA (test code = 143 mmol/L 135-145 0476973991) K (test code = 3.6 mmol/L 3.5-5.0 1856748180) CL (test code = 106 mmol/L 98-108 8124955013) CO2 TOTAL (test code = 28 mmol/L 23-31 7045546941) AGAP (test code = 2-16 3209409337) BUN (test code = 25 mg/dL 7-23 H 1618892761) GLUCOSE (test code = 107 mg/dL 70-110 2397998170) CREATININE (test code = 1.13 mg/dL 0.60-1.25 2149672300) CALCIUM (test code = 9.0 mg/dL 8.6-10.6 0629425902) eGFR (test code = mL/min/1.73m2 4076447250) TYE (test code = TYE) Association of [...] tests). Lab Interpretation Abnormal (test code = 52094-7) [facility] WITH [id number] 11:43:04 Test Item Value Reference Range Interpretation Comments WBC (test code = See_Comment H [Automated 6690-2) message] The sy stem which [...] as normal/abnormal . HGB (test code = 11.3 g/dL 12.2-16.4 L 718-7) HCT (test code = 32.8 % 38.4-49.3 L 4544-3) MCV (test code = 84.1 fL 81.7-95.6 787-2) MCH (test code = 29.0 pg 26.1-32.7 785-6) MCHC (test code = 34.5 g/dL 31.2-35.0 786-4) RDW-SD (test code = 38.4 fL 38.5-51.6 L 49208-1) RDW-CV (test code = 12.7 % 12.1-15.4 788-0) PLT (test code = See_Comment [Automated 777-3) message] The sy stem which generated this result transmitted reference range : 150 - 328 10*3/ ?L. The reference r mey was not used to interpret this result as normal/abnormal . MPV (test code = 10.6 fL 9.8-13.0 82662-4) NRBC/100 WBC (test See_Comment [Automat ed code = 6091596255) message] The system which generated this result transmitted reference range : 0.0 - 10.0 /100 WBCs. The refer ence range was not u sed to interpret th is result as normal/abnormal . NRBC x10^3 (test code See_Comment [Auto mated = 1900684917) message] The s ystem which generated this result transmitted reference range : 10*3/?L. The reference range was not used to interpret this result as normal/abnormal . GRAN MAT (NEUT) % 80.5 % (test code = 770-8) IMM GRAN % (test code 1.00 % = 8326622623) LYMPH % (test code = 8.2 % 736-9) MONO % (test code = 10.0 % 5905-5) EOS % (test code = 0.1 % 713-8) BASO % (test code = 0.2 % 706-2) GRAN MAT x10^3(ANC) 8.94 10*3/uL 1.99-6.95 H (test code = 2535740555) IMM GRAN x10^3 (test 0.11 10*3/uL 0.00-0.06 H code = 3951910060) LYMPH x10^3 (test code 0.91 10*3/uL 1.09-3.23 L = 731-0) MONO x10^3 (test code 1.11 10*3/uL 0.36-1.02 H = 742-7) EOS x10^3 (test code = 0.06-0.53 L 711-2) BASO x10^3 (test code 0.01-0.09 = 704-7) Lab Interpretation Abnormal (test code = 40040-5) [facility] WITH [id number] 11:43:04 Test Item Value Reference Range Interpretation Comments WBC (test code = See_Comment H [Automated 6690-2) message] The sy stem which [...] as normal/abnormal . HGB (test code = 11.3 g/dL 12.2-16.4 L 718-7) HCT (test code = 32.8 % 38.4-49.3 L 4544-3) MCV (test code = 84.1 fL 81.7-95.6 787-2) MCH (test code = 29.0 pg 26.1-32.7 785-6) MCHC (test code = 34.5 g/dL 31.2-35.0 786-4) RDW-SD (test code = 38.4 fL 38.5-51.6 L 68149-4) RDW-CV (test code = 12.7 % 12.1-15.4 788-0) PLT (test code = See_Comment [Automated 777-3) message] The sy stem which generated this result transmitted reference range : 150 - 328 10*3/ ?L. The reference r mey was not used to interpret this result as normal/abnormal . MPV (test code = 10.6 fL 9.8-13.0 85975-1) NRBC/100 WBC (test See_Comment [Automat ed code = 5377179193) message] The system which generated this result transmitted reference range : 0.0 - 10.0 /100 WBCs. The refer ence range was not u sed to interpret th is result as normal/abnormal . NRBC x10^3 (test code See_Comment [Auto mated = 2804639438) message] The s ystem which generated this result transmitted reference range : 10*3/?L. The reference range was not used to interpret this result as normal/abnormal . GRAN MAT (NEUT) % 80.5 % (test code = 770-8) IMM GRAN % (test code 1.00 % = 6996109530) LYMPH % (test code = 8.2 % 736-9) MONO % (test code = 10.0 % 5905-5) EOS % (test code = 0.1 % 713-8) BASO % (test code = 0.2 % 706-2) GRAN MAT x10^3(ANC) 8.94 10*3/uL 1.99-6.95 H (test code = 1446768135) IMM GRAN x10^3 (test 0.11 10*3/uL 0.00-0.06 H code = 6153332731) LYMPH x10^3 (test code 0.91 10*3/uL 1.09-3.23 L = 731-0) MONO x10^3 (test code 1.11 10*3/uL 0.36-1.02 H = 742-7) EOS x10^3 (test code = 0.06-0.53 L 711-2) BASO x10^3 (test code 0.01-0.09 = 704-7) Lab Interpretation Abnormal (test code = 96830-8) [facility] and Screen - ONCE [id number] 11:55:27 Test Item Value Reference Range Interpretation Comments ABO & RH (test code A POSITIVE Performe d at [facility] = 20) [facility] [address] [facility] s [id number] Free: [phone] A No. [id number] IAT (test code = Negative Performed a t [facility] 1185) [facility] [address] [facility] [address]Bvty Free: [phone] A No. [id number] [facility] Screen - ONCE [id number] 11:55:27 Test Item Value Reference Range Interpretation Comments ABO & RH (test code A POSITIVE Performe d at [facility] = 20) [facility] [address] [place] [address]Dxfg Free: [phone] A No. [id number] IAT (test code = Negative Performed a t [facility] 1185) Laboratory [facility] [address] [place] [address]Phue Free: [phone] A No. [id number] [facility] NorthwestVITAMIN B12, [id number] 12:54:19 Test Item Value Reference Range Interpretation Comments VIT B12 (test code = 334 pg/mL 240-930 1114460074) TYE (test code = TYE) Biotin has been reported to cause a positive bias, interpret results relative to patient's use of biotin. Lab Interpretation (test Normal code = 04556-1) [facility]IT[facility] B12, [id number] 12:54:19 Test Item Value Reference Range Interpretation Comments VIT B12 (test code = 334 pg/mL 240-930 6857232791) TYE (test code = TYE) Biotin has been reported to cause a positive bias, interpret results relative to patient's use of biotin. Lab Interpretation (test Normal code = 28926-0) [facility]IT[facility] B12, [id number] 12:54:19 Test Item Value Reference Range Interpretation Comments VIT B12 (test code = 334 pg/mL 240-930 3037626781) TYE (test code = TYE) Biotin has been reported to cause a positive bias, interpret results relative to patient's use of biotin. Lab Interpretation (test Normal code = 18632-0) [facility] and Screen - ONCE [id number] 10:30:52 Test Item Value Reference Range Interpretation Comments ABO & RH (test code A POSITIVE Performe d at [facility] = 20) Laboratory [facility] [address] [place] [address] s [address]Kpgf Free: [phone] A No. [id number] IAT (test code = Negative Performed a t [facility] 1185) Laboratory [facility] Blood [address] [address]Jtxe Free: [phone] A No. [id number] [facility] and Screen - ONCE [id number] 10:30:52 Test Item Value Reference Range Interpretation Comments ABO & RH (test code A POSITIVE Performe d at [facility] = 20) Laboratory [facility] Blood [address] s [address]Ozqq Free: [phone] A No. [id number] IAT (test code = Negative Performed a t [facility] 1185) Laboratory [facility] Blood [address] s [address]Nkif Free: [phone] A No. [id number] [facility] and Screen - ONCE [id number] 10:30:52 Test Item Value Reference Range Interpretation Comments ABO & RH (test code A POSITIVE Performe d at [facility] = 20) Laboratory [facility] [address] [place] [address] s [id number] Free: [phone] A No. [id number] IAT (test code = Negative Performed a t [facility] 1185) Laboratory [facility] [address] [place] [address] s [address]Pqge Free: [phone] A No. [id number] [facility] Confirmation (Lab Only)2022-03-14 10:24:42 Test Item Value Reference Range Interpretation Comments ABO & RH (test code A Positive Performe d at [facility] = 20) [facility] [address] [place] [address]Kiyp Free: [phone] A No. [id number] [facility] Confirmation (Lab Only)2022-03-14 10:24:42 Test Item Value Reference Range Interpretation Comments ABO & RH (test code A Positive Performe d at [facility] = 20) [facility] [address] [place] [address]Zsha Free: [phone] A No. [id number] [facility] Confirmation (Lab Only)2022-03-14 10:24:42 Test Item Value Reference Range Interpretation Comments ABO & RH (test code A Positive Performe d at [facility] = 20) [facility] [address] [place] [address]Flbj Free: [phone] A No. [id number] [facility]. Sendout- Autoimmune Encephalitis Panel From [facility] [[email or web address]] [id number] 13:47:34 Test Item Value Reference Range Interpretation Comments Miscellaneous Test (test See scanned report code = 3787345129) Performing Lab (test code ARUP = 8741404436) [facility] METABOLIC PANEL (NA, K, CL, CO2, GLUCOSE, BUN, CREATININE, CA)2021-10-26 12:06:39 Test Item Value Reference Range Interpretation Comments NA (test code = 136 mmol/L 135-145 1229850188) K (test code = 4.2 mmol/L 3.5-5.0 8665814629) CL (test code = 105 mmol/L 98-108 9527655074) CO2 TOTAL (test code 25 mmol/L 23-31 = 5040143593) AGAP (test code = 2-16 0550030000) BUN (test code = 23 mg/dL 7-23 3370505866) GLUCOSE (test code = 91 mg/dL 70-110 1708403127) CREATININE (test code 1.25 mg/dL 0.60-1.25 = 8781525093) CALCIUM (test code = 8.8 mg/dL 8.6-10.6 5734169180) eGFR (test code = mL/min/1.73m2 1661959403) TYE (test code = TYE) Association of [...] or urine or abnormalities in imaging tests). [facility] METABOLIC PANEL (NA, K, CL, CO2, GLUCOSE, BUN, CREATININE, CA)2021-10-25 11:25:18 Test Item Value Reference Range Interpretation Comments NA (test code = 139 mmol/L 135-145 7795663094) K (test code = 4.2 mmol/L 3.5-5.0 4489217289) CL (test code = 108 mmol/L 98-108 8758449474) CO2 TOTAL (test code = 26 mmol/L 23-31 5463342613) AGAP (test code = 2-16 4063053940) BUN (test code = 27 mg/dL 7-23 H 4654172260) GLUCOSE (test code = 95 mg/dL 70-110 7261657721) CREATININE (test code = 1.65 mg/dL 0.60-1.25 H 4344772652) CALCIUM (test code = 8.8 mg/dL 8.6-10.6 9441186568) eGFR (test code = mL/min/1.73m2 7772944766) TYE (test code = TYE) Association of [...] tests). Lab Interpretation Abnormal (test code = 83442-2) [facility] PAN[facility] (32768) (ALB,T.PRO,BILI T,BU/BC,ALT,AST,ALK PHOS)2021-10-25 11:25:18 Test Item Value Reference Range Interpretation Comments TOTAL BILI (test code = 4395640021) 0.5 mg/dL 0.1-1.1 BILI UNCON (test code = 7703381223) 0.5 mg/dL 0.1-1.1 BILI CONJ (test code = 6222481332) 0.0 mg/dL 0.0-0.3 T PROTEIN (test code = 1378050143) 6.9 g/dL 6.3-8.2 ALBUMIN (test code = 6095492717) 3.8 g/dL 3.5-5.0 ALK PHOS (test code = 6114223375) 84 U/L 34-122 ALTv (test code = 1742-6) 39 U/L 5-50 AST(SGOT) (test code = 2496371896) 48 U/L 13-40 H Lab Interpretation (test code = Abnormal 37171-2) [facility]IUM2022-06-27 11:25:18 Test Item Value Reference Range Interpretation Comments MAGNESIUM (test code = 0823027793) 2.2 mg/dL 1.7-2.4 Lab Interpretation (test code = Normal 57687-9) [facility] WITH [id number] 11:03:54 Test Item Value Reference Range Interpretation Comments WBC (test code = See_Comment [Automated 6390-2) message] The sy stem which generated this result transmitted reference range : 4.20 - 10.70 10*3/?L. The reference range was not used to interpret this result as normal/abnormal . RBC (test code = See_Comment L [Automated 659-8) message] The sy stem which generated this [...] RDW-SD (test code = 39.5 fL 38.5-51.6 44536-2) RDW-CV (test code = 13.0 % 12.1-15.4 788-0) PLT (test code = See_Comment [Automated 777-3) message] The sy stem which generated this result transmitted reference range : 150 - 328 10*3/ ?L. The reference r mey was not used to interpret this result as normal/abnormal . MPV (test code = 10.9 fL 9.8-13.0 11742-1) NRBC/100 WBC (test See_Comment [Automat ed code = 1602105188) message] The system which generated this result transmitted reference range : 0.0 - 10.0 /100 WBCs. The refer ence range was not u sed to interpret th is result as normal/abnormal . NRBC x10^3 (test code <0.01 See_Comment [Auto mated = 5969021227) message] The s ystem which generated this result transmitted reference range : 10*3/?L. The reference range was not used to interpret this result as normal/abnormal . GRAN MAT (NEUT) % 66.4 % (test code = 770-8) IMM GRAN % (test code 1.20 % = 7792960536) LYMPH % (test code = 21.9 % 736-9) MONO % (test code = 7.2 % 5905-5) EOS % (test code = 2.7 % 713-8) BASO % (test code = 0.6 % 706-2) GRAN MAT x10^3(ANC) 5.66 10*3/uL 1.99-6.95 (test code = 3627411121) IMM GRAN x10^3 (test 0.10 10*3/uL 0.00-0.06 H code = 4716345698) LYMPH x10^3 (test code 1.86 10*3/uL 1.09-3.23 = 731-0) MONO x10^3 (test code 0.61 10*3/uL 0.36-1.02 = 742-7) EOS x10^3 (test code = 0.23 10*3/uL 0.06-0.53 711-2) BASO x10^3 (test code 0.05 10*3/uL 0.01-0.09 = 704-7) Lab Interpretation Abnormal (test code = 46722-6) [facility] NorthwestProthrombin Time / [id number] 11:03:54 Test Item Value Reference Range Interpretation Comments PROTIME PATIENT (test See_Comment H [Auto mated message] code = 5964-2) The system [employer] generated this result transmitted ref erence range: 10.1 - 1 2.6 Seconds. The reference range was not used to int erpret this result as normal/abnormal . INR (test code = 6301-6) Nor mal INR <1.1; Warfarin Therap eutic range 2.0 to 3. 0 or 2.5 to 3.5, dep ending upon the indica tions. Lab Interpretation (test Abnormal code = 92162-3) [id number] 12:44:57 Test Item Value Reference Range Interpretation Comments CSF CULTURE (test No organisms isolated code = 606-4) Gram stain (test code Moderate Mononuclear = 664-3) cells [facility] MET[facility]OL[facility] PAN[facility] (NA, K, CL, CO2, GLUCOSE, BUN, CREATININE, CA)2021-10-24 10:58:18 Test Item Value Reference Range Interpretation Comments NA (test code = 138 mmol/L 135-145 3675648089) K (test code = 4.3 mmol/L 3.5-5.0 4294772761) CL (test code = 108 mmol/L 98-108 4057130472) CO2 TOTAL (test code = 24 mmol/L 23-31 2532954251) AGAP (test code = 2-16 3133701950) BUN (test code = 24 mg/dL 7-23 H 9810678876) GLUCOSE (test code = 109 mg/dL 70-110 3637383280) CREATININE (test code = 1.81 mg/dL 0.60-1.25 H 6110788898) CALCIUM (test code = 8.7 mg/dL 8.6-10.6 4555547287) eGFR (test code = mL/min/1.73m2 1264663073) TYE (test code = TYE) Association of [...] tests). Lab Interpretation Abnormal (test code = 69267-8) [facility]2022-06-26 10:58:18 Test Item Value Reference Range Interpretation Comments MAGNESIUM (test code = 9874164602) 2.2 mg/dL 1.7-2.4 Lab Interpretation (test code = Normal 02309-9) [facility] WITH [id number] 10:33:57 Test Item Value Reference Range Interpretation Comments WBC (test code = See_Comment [Automated 5729-2) message] The sy stem which generated this result transmitted reference range : 4.20 - 10.70 10*3/?L. The reference range was not used to interpret this result as normal/abnormal . RBC (test code = See_Comment [Automated 649-8) message] The sy stem which generated this [...] RDW-SD (test code = 38.7 fL 38.5-51.6 88762-6) RDW-CV (test code = 13.1 % 12.1-15.4 788-0) PLT (test code = See_Comment [Automated 777-3) message] The sy stem which generated this result transmitted reference range : 150 - 328 10*3/ ?L. The reference r mey was not used to interpret this result as normal/abnormal . MPV (test code = 10.8 fL 9.8-13.0 73448-0) NRBC/100 WBC (test See_Comment [Automat ed code = 2767289314) message] The system which generated this result transmitted reference range : 0.0 - 10.0 /100 WBCs. The refer ence range was not u sed to interpret th is result as normal/abnormal . NRBC x10^3 (test code <0.01 See_Comment [Auto mated = 3180112327) message] The s ystem which generated this result transmitted reference range : 10*3/?L. The reference range was not used to interpret this result as normal/abnormal . GRAN MAT (NEUT) % 73.8 % (test code = 770-8) IMM GRAN % (test code 1.10 % = 4008412463) LYMPH % (test code = 15.7 % 736-9) MONO % (test code = 7.2 % 5905-5) EOS % (test code = 1.7 % 713-8) BASO % (test code = 0.5 % 706-2) GRAN MAT x10^3(ANC) 7.69 10*3/uL 1.99-6.95 H (test code = 8703070025) IMM GRAN x10^3 (test 0.11 10*3/uL 0.00-0.06 H code = 1991925196) LYMPH x10^3 (test code 1.63 10*3/uL 1.09-3.23 = 731-0) MONO x10^3 (test code 0.75 10*3/uL 0.36-1.02 = 742-7) EOS x10^3 (test code = 0.18 10*3/uL 0.06-0.53 711-2) BASO x10^3 (test code 0.05 10*3/uL 0.01-0.09 = 704-7) Lab Interpretation Abnormal (test code = 95530-2) [facility] (AUT[facility]ATED)2021-10-24 00:15:25 Test Item Value Reference Range Interpretation Comments POCT GLU (test code = 2714071962) 151 mg/dL 70-110 H Lab Interpretation (test code = Abnormal 46814-3) [facility] NorthwestCerebrospinal Fluid [id number] 00:14:41 Test Item Value Reference Range Interpretation Comments GLU CSF (test code = 53 mg/dL 50-80 5550778019) UNSPUN BODY FLUID Colorless COLOR (test code = 4692896275) UNSPUN BODY FLUID Clear CLARITY (test code = 2859414711) SPUN BODY FLUID COLOR Colorless (test code = 8832223567) SPUN BODY FLUID Clear CLARITY (test code = 6788943246) Sediment (test code = The sediment volume is 0303041760) <0.1 mLs of the total fluid volume of 3.0 mLs and its color is red. [facility] NorthwestBODY FLUID DIRECT [id number] 00:09:39 Test Item Value Reference Range Interpretation Comments BF COLOR (test code = Clear 0719085030) BF WBC Count (test See_Comment [Automat ed message] The code = 1532985741) system [facility] generated this result transmit missy reference range : 0 - 5 /?L. The reference r mey was not used to interpr et this result as nikita l/abnormal. BF RBC Count (test See_Comment [Automat ed message] The code = 3122592868) system [facility] generated this result transmit missy reference range : /?L. The reference range was not used to interpr et this result as nikita l/abnormal. [facility] NorthwestBODY FLUID MANUAL [id number] 00:09:39 Test Item Value Reference Range Interpretation Comments BF SEGS% (test code = 69473-8) 9 % 0-7 H BF LYMPHS% (test code = 43436-4) 45 % 28-96 BF MACROPHAGE% (test code = 13638-8) 45 % 16-56 BF #CELLS CNTD (test code = cells/uL 2088799870) Lab Interpretation (test code = Abnormal 03430-7) [facility] NorthwestCerebrospinal Fluid [id number] 00:00:26 Test Item Value Reference Range Interpretation Comments T. PRO CSF (test code = 49.0 mg/dL 15.0-45.0 H 1652161880) UNSPUN BODY FLUID COLOR Colorless (test code = 5501875442) UNSPUN BODY FLUID CLARITY Clear (test code = 9640714489) SPUN BODY FLUID COLOR Colorless (test code = 3711036386) SPUN BODY FLUID CLARITY Clear (test code = 5422150023) Sediment (test code = The sediment volume 1567718909) is <0.1 mLs of the total fluid volume of 3.0 mLs and its color is red. Lab Interpretation (test Abnormal code = 03923-6) [facility] NorthwestVITAMIN B1 (THIAMINE), WHOLE [id number] 12:43:40 Test Item Value Reference Range Interpretation Comments Vitamin B1, Whole 65 nmol/L 70-180 L INTERPRETI VE Blood (test code = INFORMATI ON: Vitamin 91483-0) B1, Whole Blood This assay measures the [...] nd its performance characteristics determined by [facility]. I t has not been cleare d or approved by the [place] Food and Drug Administration. This test was perfor med in a CLIA certifie d laboratory and is intended for cl inical purposes.Perfor med By: [facility] [[email or web address]] Labor[address] [place] [address]Ahgvoucrws Director: Elenita Cano MD Lab Interpretation Abnormal (test code = 52607-7) [facility] NorthwestTHYROID PEROXIDASE (TPO) [id number] 21:58:47 Test Item Value Reference Interpretation Comments Range TPO Ab IgG (test See_Comment [Automated code = 3370783842) message] The system which generated this result [...] Graves'disease. Lab Interpretation Normal (test code = 18516-4) [facility] NorthwestVITAMIN B6, [id number] 18:05:10 Test Item Value Reference Range Interpretation Comments VIT B6 (test 43.5 nmol/L 20.0-125.0 INTERPRETIVE IN FORMATION: code = 32597-4) Vitamin B6 ( Pyridoxal 5-Phosphate) Py ridoxal [...] intended for clinical purposes.Perfor med By: [facility] [address] [place], [place] [address]Xcfswdr [facility] Director: Elenita Cano MD [facility] METABOLIC PANEL (NA, K, CL, CO2, GLUCOSE, BUN, CREATININE, CA)2021-10-20 09:25:40 Test Item Value Reference Range Interpretation Comments NA (test code = 138 mmol/L 135-145 6604277825) K (test code = 4.0 mmol/L 3.5-5.0 0619706981) CL (test code = 107 mmol/L 98-108 0204096147) CO2 TOTAL (test code = 27 mmol/L 23-31 3359006266) AGAP (test code = 2-16 1984678631) BUN (test code = 15 mg/dL 7-23 2962001610) GLUCOSE (test code = 108 mg/dL 70-110 7197965105) CREATININE (test code = 1.02 mg/dL 0.60-1.25 5090528916) CALCIUM (test code = 8.5 mg/dL 8.6-10.6 L 5853006955) eGFR (test code = mL/min/1.73m2 1294731050) TYE (test code = TYE) Association of [...] tests). Lab Interpretation Abnormal (test code = 34209-9) [facility]MAGN[facility]IUM2022-06-22 09:25:40 Test Item Value Reference Range Interpretation Comments MAGNESIUM (test code = 5115354501) 2.0 mg/dL 1.7-2.4 Lab Interpretation (test code = Normal 34909-6) [facility] WITH [id number] 09:05:38 Test Item Value Reference Range Interpretation [...] (test code = 37.2 fL 38.5-51.6 L 84090-6) RDW-CV (test code = 12.4 % 12.1-15.4 788-0) PLT (test code = See_Comment [Automated 777-3) message] The sy stem which generated this result transmitted reference range : 150 - 328 10*3/ ?L. The reference r mey was not used to interpret this result as normal/abnormal . MPV (test code = 10.6 fL 9.8-13.0 76550-1) NRBC/100 WBC (test See_Comment [Automat ed code = 3494122077) message] The system which generated this result transmitted reference range : 0.0 - 10.0 /100 WBCs. The refer ence range was not u sed to interpret th is result as normal/abnormal . NRBC x10^3 (test code <0.01 See_Comment [Auto mated = 8459041218) message] The s ystem which generated this result transmitted reference range : 10*3/?L. The reference range was not used to interpret this result as normal/abnormal . GRAN MAT (NEUT) % 71.3 % (test code = 770-8) IMM GRAN % (test code 0.80 % = 2335077189) LYMPH % (test code = 17.3 % 736-9) MONO % (test code = 7.8 % 5905-5) EOS % (test code = 2.4 % 713-8) BASO % (test code = 0.4 % 706-2) GRAN MAT x10^3(ANC) 5.93 10*3/uL 1.99-6.95 (test code = 0144856655) IMM GRAN x10^3 (test 0.07 10*3/uL 0.00-0.06 H code = 0740766350) LYMPH x10^3 (test code 1.44 10*3/uL 1.09-3.23 = 731-0) MONO x10^3 (test code 0.65 10*3/uL 0.36-1.02 = 742-7) EOS x10^3 (test code = 0.20 10*3/uL 0.06-0.53 711-2) BASO x10^3 (test code 0.03 10*3/uL 0.01-0.09 = 704-7) Lab Interpretation Abnormal (test code = 95218-4) [facility] 16:30:48 Test Item Value Reference Range Interpretation Comments Height (test code = in 2242492884) Weight (test code = lbs 7543790030) Systolic BP (test code = mmHg 7415313135) Diastolic BP (test code mmHg = 4013335593) Heart Rate (test code = bpm 1764128537) LVOT stroke volume (test 36.20 cm3 code = 0118569009) EF(Teich) (test code = 42.20 % 6009801212) LVIDD (test code = 5.80 cm 4600026375) LVIDS (test code = 4.50 cm 6995769501) IVS (test code = 1.02 cm 4183121936) LVPWD (test code = 1.09 cm 7485634737) LVOT diameter (test code 1.98 cm = 2059337209) FS (test code = 21 % 3092491883) MV Peak E Pasha (test code 59.6 cm/s = 7195994178) E wave decelartion time 0.22 s (test code = 5564392756) MV E/e' septal (test 5.7 cm/s code = 9056520348) LVOT peak pasha (test code 68.6 cm/s = 6356441135) LVOT mn grad (test code mmHg = 4687588059) BSA (test code = 2.15 m2 3739756856) LA size (test code = 3.1 cm 6348294280) LAV(MOD-sp4) (test code 22.20 mL = 8430061756) Tapse (test code = 2.5 cm 9884868394) AV LVOT peak gradient mmHg (test code = 5284254895) LVOT peak VTI (test code 11.8 cm = 8683789485) LV V1 mean (test code = 40.80 cm/s 1425490447) MV Prop V (test code = 43.50 cm/s 0621158476) Ao root annulus (test 3.7 cm code = 8677405001) Ao root diam (test code 3.70 cm = 7850179357) Aortic root (test code = 3.7 cm 8328794475) PW (test code = 1.09 cm 0.6-1.1 6272231351) EF - 2D (test code = 42.20 % 95117557) Interventricular Septum 1.02 cm Diastolic Thickness by 2D (test code = 5126692) Aortic valve mean 57.0 cm/s velocity (test code = 4172254351) Ao peak pasha (test code = 90.9 cm/s 6271869342) Ao VTI (test code = 18.1 cm 6209112179) AV area by cont VTI 2.0 cm2 (test code = 4015927363) AV area peak pasha (test 2.3 cm2 code = 0658067086) Ao max PG (test code = 3.30 mm[Hg] 1758510877) AV peak gradient (test mmHg code = 5194949135) AV valve area (test code 2.00 cm2 = 3449544923) AV mean gradient (test mmHg code = 0660413699) Radiology Study observation (narrative) (test code = 56516-8) TYE (test code = TYE) ?Left?Ventricle: Systolic [...] assess LV function when patient more stable. [facility] METABOLIC PANEL (NA, K, CL, CO2, GLUCOSE, BUN, CREATININE, CA)2021-10-18 10:22:01 Test Item Value Reference Range Interpretation Comments NA (test code = 142 mmol/L 135-145 4275579096) K (test code = 3.6 mmol/L 3.5-5.0 2232916220) CL (test code = 111 mmol/L 98-108 H 9467204470) CO2 TOTAL (test code = 29 mmol/L 23-31 8317898489) AGAP (test code = 2-16 8161040155) BUN (test code = 22 mg/dL 7-23 1716525663) GLUCOSE (test code = 93 mg/dL 70-110 7590146696) CREATININE (test code = 1.28 mg/dL 0.60-1.25 H 6611377582) CALCIUM (test code = 8.7 mg/dL 8.6-10.6 7942259335) eGFR (test code = mL/min/1.73m2 9860569530) TYE (test code = TYE) Association of [...] tests). Lab Interpretation Abnormal (test code = 37379-9) [facility] 10:22:01 Test Item Value Reference Range Interpretation Comments MAGNESIUM (test code = 9605470790) 2.2 mg/dL 1.7-2.4 Lab Interpretation (test code = Normal 76163-8) [facility] WITH [id number] 09:59:41 Test Item Value Reference Range Interpretation Comments WBC (test code = See_Comment [Automated 2190-2) message] The sy stem which generated this result transmitted reference range : 4.20 - 10.70 10*3/?L. The reference range was not used to interpret this result as normal/abnormal . RBC (test code = See_Comment L [Automated 518-8) message] The sy stem which generated this [...] RDW-SD (test code = 40.1 fL 38.5-51.6 89374-6) RDW-CV (test code = 13.0 % 12.1-15.4 788-0) PLT (test code = See_Comment [Automated 777-3) message] The sy stem which generated this result transmitted reference range : 150 - 328 10*3/ ?L. The reference r mey was not used to interpret this result as normal/abnormal . MPV (test code = 10.8 fL 9.8-13.0 78605-4) NRBC/100 WBC (test See_Comment [Automat ed code = 4843966243) message] The system which generated this result transmitted reference range : 0.0 - 10.0 /100 WBCs. The refer ence range was not u sed to interpret th is result as normal/abnormal . NRBC x10^3 (test code <0.01 See_Comment [Auto mated = 4904507969) message] The s ystem which generated this result transmitted reference range : 10*3/?L. The reference range was not used to interpret this result as normal/abnormal . GRAN MAT (NEUT) % 64.1 % (test code = 770-8) IMM GRAN % (test code 0.50 % = 7265239416) LYMPH % (test code = 22.8 % 736-9) MONO % (test code = 8.8 % 5905-5) EOS % (test code = 3.3 % 713-8) BASO % (test code = 0.5 % 706-2) GRAN MAT x10^3(ANC) 4.66 10*3/uL 1.99-6.95 (test code = 8192077991) IMM GRAN x10^3 (test 0.04 10*3/uL 0.00-0.06 code = 0728960657) LYMPH x10^3 (test code 1.66 10*3/uL 1.09-3.23 = 731-0) MONO x10^3 (test code 0.64 10*3/uL 0.36-1.02 = 742-7) EOS x10^3 (test code = 0.24 10*3/uL 0.06-0.53 711-2) BASO x10^3 (test code 0.04 10*3/uL 0.01-0.09 = 704-7) Lab Interpretation Abnormal (test code = 03061-1) [facility] NorthwestAMMONIA, [id number] 19:35:05 Test Item Value Reference Range Interpretation Comments AMMONIA (test code = 5681712768) <9 9-33 L Lab Interpretation (test code = Abnormal 65702-7) [facility] NorthwestVITAMIN B12, [id number] 19:31:59 Test Item Value Reference Range Interpretation Comments VIT B12 (test code = 241 pg/mL 240-930 8661584554) TYE (test code = TYE) Biotin has been reported to cause a positive bias, interpret results relative to patient's use of biotin. Lab Interpretation (test Normal code = 60584-0) [facility] NorthwestFOLATE2022-06-19 15:35:26 Test Item Value Reference Range Interpretation Comments FOLATE SER (test code = 11.7 ng/mL 3.0-20.0 6960788329) Lab Interpretation (test code = Normal 27358-8) [facility] NorthwestCREATINE [id number] 12:12:54 Test Item Value Reference Range Interpretation Comments CK (test code = 7494939293) 992 U/L 33-194 H Lab Interpretation (test code = Abnormal 10343-3) [facility] NorthwestHEPATIC FUNCTION PANEL (41903) (ALB,T.PRO,BILI T,BU/BC,ALT,AST,ALK PHOS)2021-10-17 12:12:54 Test Item Value Reference Range Interpretation Comments TOTAL BILI (test code = 1502701800) 0.8 mg/dL 0.1-1.1 BILI UNCON (test code = 8077349238) 0.7 mg/dL 0.1-1.1 BILI CONJ (test code = 7783894818) 0.0 mg/dL 0.0-0.3 T PROTEIN (test code = 0934889812) 7.0 g/dL 6.3-8.2 ALBUMIN (test code = 3870364646) 3.9 g/dL 3.5-5.0 ALK PHOS (test code = 1554505850) 81 U/L 34-122 ALTv (test code = 1742-6) 19 U/L 5-50 AST(SGOT) (test code = 6020819716) 47 U/L 13-40 H Lab Interpretation (test code = Abnormal 31249-0) [facility] METABOLIC PANEL (NA, K, CL, CO2, GLUCOSE, BUN, CREATININE, CA)2021-10-17 12:12:54 Test Item Value Reference Range Interpretation Comments NA (test code = 143 mmol/L 135-145 0678532398) K (test code = 3.7 mmol/L 3.5-5.0 9174968691) CL (test code = 109 mmol/L 98-108 H 9794206398) CO2 TOTAL (test code = 26 mmol/L 23-31 9202715919) AGAP (test code = 2-16 3512100342) BUN (test code = 22 mg/dL 7-23 1346691629) GLUCOSE (test code = 101 mg/dL 70-110 7141686322) CREATININE (test code = 1.28 mg/dL 0.60-1.25 H 8282615305) CALCIUM (test code = 9.0 mg/dL 8.6-10.6 5220243430) eGFR (test code = mL/min/1.73m2 6978360081) TYE (test code = TYE) Association of [...] tests). Lab Interpretation Abnormal (test code = 99795-3) [facility] WITH [id number] 11:57:57 Test Item Value Reference Range Interpretation Comments WBC (test code = See_Comment [Automated 3090-2) message] The sy stem which generated this result transmitted reference range : 4.20 - 10.70 10*3/?L. The reference range was not used to interpret this result as normal/abnormal . RBC (test code = See_Comment [Automated 649-8) message] The sy stem which generated this [...] RDW-SD (test code = 39.8 fL 38.5-51.6 06139-7) RDW-CV (test code = 12.9 % 12.1-15.4 788-0) PLT (test code = See_Comment [Automated 777-3) message] The sy stem which generated this result transmitted reference range : 150 - 328 10*3/ ?L. The reference r mey was not used to interpret this result as normal/abnormal . MPV (test code = 10.6 fL 9.8-13.0 59506-8) NRBC/100 WBC (test See_Comment [Automat ed code = 4168601270) message] The system which generated this result transmitted reference range : 0.0 - 10.0 /100 WBCs. The refer ence range was not u sed to interpret th is result as normal/abnormal . NRBC x10^3 (test code <0.01 See_Comment [Auto mated = 7540433475) message] The s ystem which generated this result transmitted reference range : 10*3/?L. The reference range was not used to interpret this result as normal/abnormal . GRAN MAT (NEUT) % 71.9 % (test code = 770-8) IMM GRAN % (test code 0.40 % = 1924056633) LYMPH % (test code = 17.4 % 736-9) MONO % (test code = 8.4 % 5905-5) EOS % (test code = 1.7 % 713-8) BASO % (test code = 0.2 % 706-2) GRAN MAT x10^3(ANC) 6.44 10*3/uL 1.99-6.95 (test code = 0529817351) IMM GRAN x10^3 (test 0.04 10*3/uL 0.00-0.06 code = 0679904264) LYMPH x10^3 (test code 1.56 10*3/uL 1.09-3.23 = 731-0) MONO x10^3 (test code 0.75 10*3/uL 0.36-1.02 = 742-7) EOS x10^3 (test code = 0.15 10*3/uL 0.06-0.53 711-2) BASO x10^3 (test code <0.03 0.01-0.09 = 704-7) Lab Interpretation Abnormal (test code = 31330-8) [facility]20[facility] 06:29:14 Test Item Value Reference Range Interpretation Comments MAGNESIUM (test code = 5515091372) 1.9 mg/dL 1.7-2.4 Lab Interpretation (test code = Normal 18774-3) [facility] NorthwestTroponin I - Code [id number] 05:24:52 Test Item Value Reference Interpretation Comments Range TROPONIN I (test 0.017 ng/mL See_Comment [Automated code = 7683741641) message] The system which generated this result [...] biotin. Lab Interpretation Normal (test code = 36707-3) [facility] (NA, K, CL, CO2, Glucose, BUN, Creatinine, CA) - Code [id number] 05:13:10 Test Item Value Reference Range Interpretation Comments NA (test code = 144 mmol/L 135-145 7164439028) K (test code = 4.3 mmol/L 3.5-5.0 9830268101) CL (test code = 106 mmol/L 98-108 6027493589) CO2 TOTAL (test code = 26 mmol/L 23-31 1836602481) AGAP (test code = 2-16 5802661848) BUN (test code = 23 mg/dL 7-23 7533079391) GLUCOSE (test code = 123 mg/dL 70-110 H 3805718310) CREATININE (test code = 1.29 mg/dL 0.60-1.25 H 4749996950) CALCIUM (test code = 9.7 mg/dL 8.6-10.6 2558977099) eGFR (test code = mL/min/1.73m2 8717309477) TYE (test code = TYE) Association of [...] tests). Lab Interpretation Abnormal (test code = 90816-9) [facility] NorthwestaPTT - Code [id number] 05:10:54 Test Item Value Reference Range Interpretation Comments APTT Patient (test See_Comment [Automat ed code = 3173-2) message] The system which generated this result transmitted reference range : 23 - 38 Seconds . The reference range was not used to interpr et this result as normal/abnormal . TYE (test code = TYE) The [facility] patient population mean normal value for aPTT is 30 seconds. Lab Interpretation Normal (test code = 88183-6) [facility] NorthwestProthrombin Time / INR - Code [id number] 05:08:54 Test Item Value Reference Range Interpretation Comments PROTIME PATIENT (test See_Comment [Auto mated message] code = 5964-2) The system wh ich generated this result transmitted ref erence range: 12.0 - 1 4.7 Seconds. The re ference range was not u sed to interpret this result as normal/abnor mal. INR (test code = 6301-6) Nor mal INR <1.1; Warfarin Therap eutic range 2.0 to 3. 0 or 2.5 to 3.5, dep ending upon the indica tions. Lab Interpretation (test Normal code = 51436-6) [facility] without Diff - Code [id number] 05:00:52 Test Item Value Reference Range Interpretation Comments WBC (test code = 6690-2) See_Comment H [A utomated message] The system FlipKey generated this result transmit missy reference range : 4.20 - 10.70 10*3/?L. The reference range was not used to interpret this result as normal/abnormal . RBC (test code = 789-8) See_Comment [Au tomated message] The system [employer] generated this result transmit missy reference range : 4.26 - 5.52 10* 6/?L. The reference r mey was not used [...] 777-3) See_Comment [Au tomated message] The system [employer]ip[employer] generated this result transmit missy reference range : 150 - 328 10*3/?L. The reference range was not used to interpret this result as normal/abnormal . MPV (test code = 10.4 fL 9.8-13.0 24442-2) RDW-CV (test code = 12.6 % 12.1-15.4 788-0) RDW-SD (test code = 38.5 fL 38.5-51.6 86179-2) NRBC x10^3 (test code = <0.01 See_Comment [Au tomated message] 7301057536) The system [employer] generated this result transmit missy reference range : 10*3/?L. The reference range was not used to interpret this result as normal/abnormal . NRBC/100 WBC (test code See_Comment [Au tomated message] = 5732934181) The system GOBA generated this result transmit missy reference range : 0.0 - 10.0 /100 WBC s. The reference r mey was not used to interpret this result as normal/abnormal . IPF % (test code = 0615886988) Lab Interpretation (test Abnormal code = 23573-4) [facility] NorthwestPOMD GLUCOSE (AUTOMATED)2021-10-17 04:55:16 Test Item Value Reference Range Interpretation Comments POCT GLU (test code = 5368922176) 113 mg/dL 70-110 H Lab Interpretation (test code = Abnormal 74030-7) [facility] NorthwestSARS-CoV-2 (COVID-19) RNA [Presence] in Respiratory specimen by AARON with probe [id number] 06:35:29 Test Item Value Reference Range Interpretation Comments SARS-CoV-2 (COVID-19) RNA Not detected Not-Detected [Presence] in Respiratory specimen by AARON with probe detection (test code = 09449-5) EILEEN DANIELSON"
[2023-02-20 16:24] LABS: Absolute Lymphocytes (CBC) 1.2 K/uL (0.7-4.9); Hematocrit 38.1 % (39.6-49.0); Lymphocytes % 8.2 % (15.3-44.8); MCV 85.8 fL (80-100); MPV 8.5 fL (7.6-11.3); Platelets 274 thou/uL (152-406); RBC Red Blood Cell Count 4.45 M/uL (4.33-5.43)
[2023-02-20 16:31] LABS: Protime INR 1.15
[2023-02-20 16:41] LABS: Potassium 4.8 mEq/L (3.5-5.1)
--- NOTE | 2023-02-20 17:06 | RAD REPORT ---
EXAM DESCRIPTION: CT - Pelvis Wo Cont - 02/20/2023 4:32 pm CLINICAL HISTORY: Pelvic pain/sacral ulceration COMPARISON: None. TECHNIQUE: Computed axial tomography of the pelvis was obtained. Coronal and sagittal reconstruction performed All CT scans are performed using dose optimization technique as appropriate and may include automated exposure control or mA/KV adjustment according to patient size. FINDINGS: Increased density is present within the posterior subcutaneous tissues of the posterior pe lvis. Posterior skin thickening is present. Soft tissue abscess is not visualized. No bony destructive lesion of the adjacent coccyx noted. Large left and moderate right inguinal hernias IMPRESSION: No soft tissue abscess. No radiographic evidence of osteomyelitis. If strong clinical suspicion persists for osteomyelitis MRI would be recommended as it is more sensit meredith in detecting early disease then CT
--- NOTE | 2023-02-20 17:13 | RAD REPORT ---
EXAM DESCRIPTION: RAD - Knee Left 3 View - 02/20/2023 4:57 pm CLINICAL HISTORY: Left knee pain and swelling FINDINGS: Bony density adjacent to the tibial tubercle is chronic No acute fracture or dislocation seen. No bony destructive lesion noted. Mild osteoarthritis
--- NOTE | 2023-02-20 17:14 | RAD REPORT ---
EXAM DESCRIPTION: RAD - Foot Left 3 View - 02/20/2023 4:57 pm CLINICAL HISTORY: Left Foot pain and swelling FINDINGS: No fracture or dislocation is seen. No bony destructive lesions seen Bones are osteoporotic
[2023-02-20] MEDS ORDERED: LIDOCAINE 1% MPF 5 ML VIAL ONE (18:19)
--- NOTE | 2023-02-20 18:21 | RAD REPORT ---
EXAM DESCRIPTION: USExtremity Venous Uni Ltd02/20/2023 5:58 pm CLINICAL HISTORY: left leg swelling COMPARISON: None FINDINGS: Left common femoral, superficial femoral, greater saphenous, popliteal and posterior tibi al veins are compressible and demonstrate augmentation. Doppler demonstrates good flow. 3.8 centimeter heterogeneous fluid collection popliteal fossa Grayscale, color and spectral analysis performed on all vessels IMPRESSION: No evidence of deep venous thrombosis involving the left lower extremity. 3.8 centimeter heterogeneous fluid collection popliteal fossa probably a complex Anderson's cyst
[2023-02-20 19:36] LABS: Specific Gravity 1.024 (1.005-1.030); Urine Bacteria <20 /HPF (<20); Urine Bilirubin NEGATIVE (Negative); Urine Blood Negative (Negative); Urine Clarity Extremely Turbid (Clear); Urine Color Yellow (Yellow); Urine Crystals Unidentified Few /HPF (None Seen); Urine Glucose NEGATIVE (Negative); Urine Mucus 1+ /HPF (None Seen); Urine Protein 1+ (Negative); Urine Urobilinogen Normal (Normal); Urine WBC Clump Rare /HPF (None Seen)
[2023-02-20 19:38] LABS: Body Fluid WBC 1259 /mm^3
[2023-02-20 19:45] LABS: Body Fluid Source SYNOVIAL; Color of fluid Red (COLORLESS)
[2023-02-20 19:46] LABS: Appearance SLT. TURBID (CLEAR)
--- NOTE | 2023-02-20 20:24 | ER ---
Nurse's Notes [facility] Name: Zelalem Mendiola Age: 77 yrs Sex: Male : 1945 Arrival Date: 02/20/2023 Time: 16:02 Bed 5 Private MD: Diagnosis: UTI/ Urinary tract infection, site not specified;Weakness;Altered mental status, unspecified;Synovial cyst of popliteal space [Anderson], left knee Presentation: 02/20 16:03 Chief complaint: EMS states: pt was being d/c from [facility], they were iw getting him in the car and he started c/o left knee pain , pt has hx of dementia, nonambulatory, A\T\OX1. Coronavirus screen: At this time, the client does not indicate any symptoms associated with coronavirus-19. Ebola Screen: Patient negative for fever greater than or equal to 101.5 degrees Fahrenheit, and additional compatible Ebola Virus Disease symptoms Patient denies exposure to infectious person. Patient denies travel to an Ebola-affected area in the 21 days before illness onset. No symptoms or risks identified at this time. 16:03 Method Of Arrival: EMS: [facility] iw 16:03 Acuity: PADMAJA 3 iw 22:39 Initial Sepsis Screen: Does the patient meet any 2 criteria? RR > 20 per min. Altered nw1 Mental Status. Does the patient have a suspected source of infection? Yes: Dysuria/Frequency/Urgency/UTI Other: weakness. Risk Assessment: Do you want to hurt yourself or someone else? Unable to obtain. Onset of symptoms is unknown. Triage Assessment: 22:39 General: Appears in no apparent distress. Musculoskeletal: Parent/caregiver report the nw1 patient having weakness. Historical: - Allergies: 16:04 NKDA; iw - PMHx: 16:04 Hyperlipidemia; Dementia; Hypertension; Myocardial infarction; cardiac stent; Cataracts;iw - Immunization history:: Adult Immunizations up to date. - Family history:: not pertinent. - Social history:: Smoking status: Patient denies any tobacco usage or history of. - Hospitalizations: : No recent hospitalization is reported. Screenin:23 [facility] ED Fall Risk Assessment (Adult) History of falling in the last 3 months, db including since admission No falls in past 3 months (0 pts) Confusion or Disorientation Yes (5 pts) Intoxicated or Sedated No (0 pts) Impaired Gait Yes (1 pt) Mobility Assist Device Used Yes (1 pt) Altered Elimination No (0 pt) Score/Fall Risk Level 3 or more points = High Risk Oriented to surroundings, Maintained a safe environment. Abuse screen: Denies threats or abuse. Denies injuries from another. Nutritional screening: No deficits noted. Tuberculosis screening: No symptoms or risk factors identified. Assessment: 17:15 Reassessment: Patient appears in no apparent distress at this time. Patient and/or db family updated on plan of care and expected duration. Pain level reassessed. Patient is alert, oriented x 3, equal unlabored respirations, skin warm/dry/pink. Reassessment: FAMILY IS AT BEDSIDE. General: Appears in no apparent distress. comfortable, Behavior is calm, cooperative. 17:23 Reassessment: Patient appears in no apparent distress at this time. Patient and/or db family updated on plan of care and expected duration. Pain level reassessed. Patient is alert, oriented x 3, equal unlabored respirations, skin warm/dry/pink. 18:30 Reassessment: Patient appears in no apparent distress at this time. Patient and/or db family updated on plan of care and expected duration. Pain level reassessed. Patient is alert, oriented x 3, equal unlabored respirations, skin warm/dry/pink. Pain: Complains of pain in left knee. 19:03 Reassessment: LEFT KNEE ASPIRATION. CONSENT SIGNED AND ON CHART. db 19:45 Reassessment: Report received from day shift RN's. Rounds and introductions made. White nw1 board updated. Pt noted in bed with son at bedside. Noted knowledge deficit of PEG tube care and training. Education on both given and understanding of teaching verbalized by son. Peg tube care given and tolerated, dated and initialed. Abdominal stretch binder placed on patient as son stated concern for pt pulling out PEG tube. Pt repositioned and assessed, Call light at bedside, Will continue to monitor. 22:43 Reassessment: Attempted report. Left on hold. nw1 23:18 Reassessment: Report given to to [facility] nurse. nw1 Vital Signs: 16:25 BP 133 / 92; Pulse 89; Resp 16; Temp 98; Pulse Ox 97% on R/A; iw 17:19 BP 133 / 73; Pulse 88; Resp 16; Pulse Ox 99% ; db 18:20 BP 168 / 77; Pulse 88; Resp 16; Pulse Ox 96% ; iw 20:37 BP 137 / 77; Pulse 84; Resp 15; Pulse Ox 96% ; nw1 22:41 BP 160 / 86; Pulse 86; Pulse Ox 97% ; nw1 ED Course: 16:03 Patient arrived in ED. iw 16:04 Conrad Tsang MD is Attending Physician. rn 16:04 Triage completed. iw 16:05 Arm band placed on. iw 16:09 Kadi Rowe, LILA is Primary Nurse. db 16:24 Inserted saline lock: 22 gauge in right hand, using aseptic technique. Blood collected. iw 16:34 CT Pelvis wo Cont In Process Unspecified. EDMS 16:59 XRAY Knee LEFT 3 view In Process Unspecified. EDMS 16:59 XRAY Foot LEFT 3 View In Process Unspecified. EDMS 18:00 Extremity Venous Uni Ltd US In Process Unspecified. EDMS 18:00 Assist provider with aspiration of left knee using Lidocaine, fluid removed was bloody, iw Specimen sent to lab. Removed 8 ml's of fluid Set up for procedure. Performed by Conrad Tsang MD Dressed with band aid, Patient tolerated well. 18:20 Patient has correct armband on for positive identification. Bed in low position. Call iw light in reach. Side rails up X2. Client placed on continuous cardiac and pulse oximetry monitoring. NIBP monitoring applied. phototypesetting equipment monitor on. Door closed. Noise minimized. Lights dimmed. Warm blanket given. 20:23 Camilo Cox MD is Hospitalizing Provider. rn 20:37 Inserted saline lock: 20 gauge in right antecubital area, using aseptic technique. nw1 Blood collected. 22:40 Provided Education on: to family in reference to POC. nw1 22:40 not discontinued due to admission. nw1 Administered Medications: 20:40 Drug: Rocephin IV 1 grams IV at calculated rate once; Give after culture. slow IV push nw1 per pharmacy instructions Route: IV; Rate: calculated rate; Site: right antecubital; Medication: 19:04 VIS not applicable for this client. db Outcome: 20:24 Decision to Hospitalize by Provider. rn 22:39 Condition: stable nw1 23:20 Admitted to Med/surg accompanied by nurse, room 401, Report called to Larry, room 401 nw1 nurse 02/21 00:13 Patient left the ED. nw1 Signatures: Dispatcher [employer] Feli De La Cruz, Conrad Gramajo RN, MD MD rn Benton, Danielle, RN RN db Williams, Nicole, RN RN nw1
--- NOTE | 2023-02-20 20:24 | EDPHYS ---
Physician Documentation [facility] Name: Zelalem Mendiola Age: 77 yrs Sex: Male : 1945 Arrival Date: 02/20/2023 Time: 16:02 Bed 5 Private MD: ED Physician Conrad Tsang HPI: 02/20 16:46 This 77 yrs old Male presents to ER via EMS with complaints of Knee Pain. rn 16:46 The patient presents with pain, swelling. The complaints affect the left knee. Onset: rn The symptoms/episode began/occurred at an unknown time. Modifying factors: The symptoms are alleviated by remaining still, the symptoms are aggravated by movement. Severity of symptoms: At their worst the symptoms were moderate, in the emergency department the symptoms have improved. It is unknown whether or not the patient has had similar symptoms in the past. The patient has been recently seen by a physician:. reports recent admission for UTI, sent to rehab, was just being discharged today from rehab/usp and was noted to have left knee pain and swelling. No known fall or trauma. Unknown when it began. is concerned that patient was not moved to much in the usp and reports worsening of sacral decubitus ulcers as well as left foot wound. Also reports continued foul smell from the wounds.. Historical: - Allergies: 16:04 NKDA; iw - PMHx: 16:04 Hyperlipidemia; Dementia; Hypertension; Myocardial infarction; cardiac stent; Cataracts;iw - Immunization history:: Adult Immunizations up to date. - Family history:: not pertinent. - Social history:: Smoking status: Patient denies any tobacco usage or history of. - Hospitalizations: : No recent hospitalization is reported. ROS: 16:46 Unable to obtain ROS due to baseline dementia, rn Exam: 16:46 Constitutional: This is a well developed, well nourished patient who is awake, no furniture manager distress Head/Face: Normocephalic, atraumatic. ENT: Dry mucous membranes Cardiovascular: Regular rate and rhythm. No pulse deficits. Respiratory: No increased work of breathing, no retractions or nasal flaring. Abdomen/GI: Soft, non-tender MS/ Extremity: Pulses equal, no cyanosis. Neurovascular intact. Painful range of motion left knee with mild swelling. No erythema or warmth noted. No open wounds anteriorly. Neuro: Awake Vital Signs: 16:25 BP 133 / 92; Pulse 89; Resp 16; Temp 98; Pulse Ox 97% on R/A; iw 17:19 BP 133 / 73; Pulse 88; Resp 16; Pulse Ox 99% ; db 18:20 BP 168 / 77; Pulse 88; Resp 16; Pulse Ox 96% ; iw 20:37 BP 137 / 77; Pulse 84; Resp 15; Pulse Ox 96% ; nw1 22:41 BP 160 / 86; Pulse 86; Pulse Ox 97% ; nw1 Procedures: 18:15 Joint Treatment: Aspiration of left knee using 22-gauge spinal needle. Removed 6 ml's rn of bloody fluid, Specimen sent to lab. Dressed with band aid, Patient tolerated well. Knee aspirated after 3 cc of lidocaine applied locally for anesthesia. Cleansed with Betadine x2. Tolerated well.. MDM: 16:04 Patient medically screened. rn 20:13 Differential diagnosis: Anderson's cyst, septic arthritis, sprain, hemarthrosis. UTI. Data rn reviewed: vital signs, nurses notes, lab test result(s), radiologic studies, CT scan, plain films, ultrasound, and as a result, I will admit patient. Consideration of Admission/Observation Patient was admitted/placed on observation. Escalation of care including admission/observation considered. Management of patient was discussed with the following: Hospitalist: . Counseling: I had a detailed discussion with the patient and/or guardian regarding the historical points, exam findings, and any diagnostic results supporting the discharge/admit diagnosis, lab results, radiology results. 20:19 Response to treatment: the patient's symptoms have mildly improved after treatment, and rn as a result, I will admit patient. 20:19 ED course: Pt with increased weakness per family, they are concerned about taking him rn home like this, still signs of UTI and indwelling catheter, knee aspiration shows more RBCs and inflammatory process, also ultrasound shows anderson's cyst which could explain his knee pain with flexion. Admitted to hospitalist service for further care, cultures and lactate ordered, as well as abx to be given after cultures. . 02/20 16:08 Order name: CBC with Diff; Complete Time: 16:45 rn 02/20 16:08 Order name: Basic Metabolic Panel; Complete Time: 16:45 rn 02/20 16:08 Order name: Protime (+inr); Complete Time: 16:45 rn 02/20 16:08 Order name: Ptt, Activated; Complete Time: 16:45 rn 02/20 18:15 Order name: Fluid Cell Count,Body rn 02/20 18:15 Order name: Fluid Crystals; Complete Time: 19:20 rn 02/20 18:15 Order name: Body Fluid Culture rn 02/20 18:26 Order name: Urinalysis w/ reflexes; Complete Time: 19:45 rn 02/20 19:41 Order name: Urine Culture EDMS 02/20 19:45 Order name: Blood Culture Adult (2) rn 02/20 19:45 Order name: Lactate w/ 2H reflex if indic. rn 02/20 20:35 Order name: Urinalysis w/ reflexes EDMS 02/20 20:35 Order name: CBC with Automated Diff EDMS 02/20 20:35 Order name: CBC with Automated Diff EDMS 02/20 20:35 Order name: Comprehensive Metabolic Panel EDMS 02/20 20:35 Order name: Comprehensive Metabolic Panel EDIN 02/20 16:08 Order name: XRAY Knee LEFT 3 view; Complete Time: 18:26 rn 02/20 16:08 Order name: Extremity Venous Uni Ltd US; Complete Time: 18:26 rn 02/20 16:15 Order name: XRAY Foot LEFT 3 View; Complete Time: 18:26 rn 02/20 16:15 Order name: CT Pelvis wo Cont; Complete Time: 18:26 rn 02/20 16:08 Order name: IV Start; Complete Time: 16:24 rn Administered Medications: 20:40 Drug: Rocephin IV 1 grams IV at calculated rate once; Give after culture. slow IV push nw1 per pharmacy instructions Route: IV; Rate: calculated rate; Site: right antecubital; Disposition Summary: 02/20/23 20:24 Hospitalization Ordered Notes: Hospitalization Status: Observation rn Provider: Camilo Cox rn Location: Telemetry/MedSurg (observation) rn Condition: Stable rn Problem: new rn Symptoms: are unchanged rn Bed/Room Type: Standard rn Room Assignment: 401(02/20/23 22:21) mw Diagnosis - UTI/ Urinary tract infection, site not specified rn - Weakness rn - Altered mental status, unspecified rn - Synovial cyst of popliteal space [Anderson], left knee rn Forms: - Medication Reconciliation Form rn - SBAR form rn - Leadership Thank You Letter rn Signatures: Dispatcher [employer] Jolene De Oliveira RN RN mw Williams, Irene, RN RN iw Nieto, Roman, MD MD rn Williams, Nicole, RN RN nw1 Corrections: (The following items were deleted from the chart) 22:21 20:24 lor dickens
[2023-02-20] MEDS ORDERED: CEFTRIAXONE 1000 MG/VIAL ONE (20:25)
[2023-02-20] MEDS ORDERED: NA CHLORIDE 0.9% 50 ML ONE (20:26)
[2023-02-20] MEDS ORDERED: ONDANSETRON 4 MG/2 ML VIAL IV PRN (20:31)
--- NOTE | 2023-02-20 20:34 | P.HP ---
Certification for Inpatient With expected LOS: >2 Midnights Patient will require the following post-hospital care: Home Health Services Practitioner: I am a practitioner with admitting privileges, knowledge of patient current condition, hospital course, and medical plan of care. Services: Services provided to patient in accordance with Admission requirements found in Title 42 Section 412.3 of the Code of Federal Regulations Patient History Date of Service: 02/21/23 Reason for admission: Urinary tract infection, knee pain. History of Present Illness: This 77-year-old male patient has medical history significant for hypertension, hyperlipidemia, dementia, history of recent urinary tract infection and recurrent wounds which are deemed pressure ulcers was evaluated for episode of knee pain. There was significant concern for septic process in the joint and this was aspirated with a significant findings. He also had elevated white cell count of 15,000 and his urine analysis was very concerning for urinary tract infection. He was started on empiric antibiotic therapy and he was admitted for inpatient care of his suspected infectious process. At the time of encounter patient seems to be slightly altered. Allergies No Known Allergies Allergy (Verified 11/11/19 12:19) Home Medications: Albuterol Sulfate [Proair Hfa] 2 puff IH TID PRN #1 hfa.aer.ad 03/08/19 Aspirin Chewable [Aspirin Chewable*] 81 mg PO DAILY #90 tab.chew 03/08/19 Atorvastatin Calcium [Lipitor] 40 mg PO BEDTIME #30 tab 03/08/19 Clopidogrel Bisulfate [Plavix*] 75 mg PO DAILY #30 tablet 03/08/19 Folic Acid 1 mg PO DAILY #90 tablet 03/08/19 Mometasone/Formoterol [Dulera 100 Mcg/5 Mcg Inhaler] 2 puff IH BID #1 inhaler 03/08/19 Docosahexanoic AC/Epa [Fish Oil 1,000 MG*] 1,000 mg PO BID #60 cap 10/24/20 Donepezil HCl 5 mg PO DAILY 10/24/20 Furosemide [Lasix*] 40 mg PO DAILY #30 tab 10/24/20 Isosorbide Mononitrate [Isosorbide Mononitrate ER] 60 mg PO DAILY 10/24/20 lisinopriL [Prinivil*] 10 mg PO BID #60 tab 10/24/20 - Past Medical/Surgical History Diabetic: No -: Chronic systolic congestive heart failure-EF 35% -: CKD 3 -: Hypertension -: Hyperlipidemia -: CAD with stenting to the LAD -: Dementia -: Tobacco abuse -: davide cataract removal -: davide lens replacement -: lasix Psychosocial/ Personal History: Disabled, lives with family - Family History Mother -: Lung disease - Social History Alcohol use: No CD- Drugs: No Caffeine use: Yes Review of Systems General: Weakness, Malaise Eyes: Unremarkable ENT: Unremarkable Respiratory: Unremarkable Cardiovascular: Unremarkable Gastrointestinal: Unremarkable Genitourinary: Unremarkable Musculoskeletal: Leg Pain Integumentary: As per HPI Neurological: Confusion Physical Examination - Physical Exam General: Delirious HEENT: Atraumatic, Normocephalic Neck: Supple Respiratory: Normal air movement Cardiovascular: Regular rate/rhythm, Normal S1 S2 Gastrointestinal: Soft and benign Musculoskeletal: Tenderness (in knee.) Neurological: Dementia - Studies Laboratory Data (last 24 hrs) 02/20/23 02/20/23 02/20/23 16:17 16:17 16:17 WBC 15.00 H Hgb 13.6 Hct 38.1 L Plt Count 274 PT 12.7 H INR 1.15 APTT 37.3 H Sodium 133 L Potassium 4.8 BUN 40 H Creatinine 1.31 H Glucose 164 H Assessment and Plan - Plan Urinary tract infection: Patient does have significant urinalysis concerns. Urine culture and blood culture have been obtained. We will start empiric Rocephin for management. We will adjust antibiotics based on cultures. Dementia: We will continue oral medication for dementia management and environmental therapy. Knee pain: No finding of septic/infectious process on aspiration. We will monitor symptomatology. Decubitus ulcer: We will continue routine wound care and wound care nurse to evaluate. Hypertension: We will continue her oral antihypertensive medication monitor vital signs per unit protocol. Goal blood pressures less than 130/80 mmHg CKD stage III: Serum creatinine is 1.3. Initial. We will continue with routine management and avoid nephrotoxins. Prophylaxis: Lovenox for DVT prophylaxis CODE STATUS: Full code Disposition: We will monitor and manage urinary tract infection and discharge him when he is deemed clinical stable Discharge Plan: Home - Advance Directives Does patient have a Living Will: No Does patient have a Durable POA for Healthcare: No
[2023-02-21] MEDS: D5 0.45 NS 1,000 ML IV SCH ×3 (01:57→22:07)
[2023-02-21 07:00] LABS: Absolute Lymphocytes (CBC) 1.3 K/uL (0.7-4.9); Hematocrit 36.4 % (39.6-49.0); Lymphocytes % 12.3 % (15.3-44.8); MCV 85.5 fL (80-100); MPV 8.6 fL (7.6-11.3); Platelets 225 thou/uL (152-406); RBC Red Blood Cell Count 4.26 M/uL (4.33-5.43)
[2023-02-21 07:18] LABS: Bilirubin Total 0.4 mg/dL (0.2-1.0); Potassium 4.5 mEq/L (3.5-5.1); Protein, Total 7.3 g/dL (6.4-8.2)
[2023-02-21] MEDS ORDERED: ENOXAPARIN 40 MG/0.4 ML SQ SCH (09:00)
--- NOTE | 2023-02-21 14:34 | P.PN ---
Subjective Date of Service: 02/21/23 Chief Complaint: Urinary tract infection, knee pain. Per RN, no acute events overnight. He appears confused this morning. He is alert and oriented x1. His baseline mental status is unknown. Arthrocentesis is concerning for hemarthrosis. I spoke with Orthopedic Surgery (Dr. Becerril), who recommended serial H&H, wrapping the knee, and elevating as tolerated Review of Systems is unable to be obtained Physical Examination - Vital Signs Temperature: 97.9 F Blood Pressure: 121/58 Pulse: 67 Respirations: 16 Pulse Ox (%): 96 - Physical Exam General: Alert, In no apparent distress, Oriented x1 HEENT: Atraumatic, Mucous membr. moist/pink, Sclerae nonicteric Neck: JVD not distended Respiratory: Clear to auscultation bilaterally, Normal air movement Cardiovascular: No edema, Regular rate/rhythm, Normal S1 S2, No gallops, No rubs, No murmurs Gastrointestinal: Normal bowel sounds, Soft and benign, Non-distended, No tenderness, No rebound, No guarding Musculoskeletal: No clubbing, Swelling (left knee), Tenderness (left knee) Integumentary: No rashes Neurological: Other (unable to obtain due to mental status), Dementia - Studies Laboratory Data (last 24 hrs) 02/20/23 02/20/23 02/20/23 16:17 16:17 16:17 WBC 15.00 H Hgb 13.6 Hct 38.1 L Plt Count 274 PT 12.7 H INR 1.15 APTT 37.3 H Sodium 133 L Potassium 4.8 BUN 40 H Creatinine 1.31 H Glucose 164 H Microbiology Data (last 24 hrs): 02/20/23 18:05 Body Fluid - Left Knee Gram Stain - Final Assessment And Plan - Plan # Suspect Acute Toxic Metabolic Encephalopathy on Dementia likely secondary to Urinary Tract Infection - Evaluation thus far: - Presenting Labs = Na+ 133, Ca2+ 9.2, CO2 27, Glucose 164, BUN 40 - Ordered ammonia, Vitamin B12, TSH - Urinalysis = 2+ nitrite, 500 leukocyte esterase, 5-10 RBCs, >50 WBCs, 1+ protein - Blood cultures x 2 drawn - Management plan: - Requested CT head - Started cetriaxone - Serial neurologic exams # Left Knee Pain secondary to Hemarthrosis - Left lower extremity Doppler = "No evidence of deep venous thrombosis in volving the left lower extremity. 3.8 centimeter heterogeneous fluid collection popliteal fossa probably a complex Anderson's cyst" - Left knee x-ray = "bony density adjacent to the tibial tubercle is chronic. No acute fracture or dislocation seen. No bony destructive lesion noted. Mild osteoarthritis." - S/P arthrocentesis - Synovial fluid: 1259 WBCs, [id number] RBCs - not consistent with septic joint - Spoke with Dr. Becerril (Orthopedic Surgery) - Recommended non-surgical management with compression and elevation - Serial H&H transfuse for hemoglobin less than 7.0 # Stage I Sacral Decubitus Pressure Ulcer # Unstageable Left Heel Pressure Ulcer - CT pelvis = "no soft tissue abscess. No radiographic evidence of osteomyelitis. If strong clinical suspicion persists for osteomyelitis MRI would be recommended as it is more sensitive in detecting early disease then CT" - General Surgery and Wound Care consulted # Coronary Artery Disease s/p PCI # Chronic Compensated Systolic Congestive Heart Failure # Chronic Kidney Disease Stage III # Hypertension # Hyperlipidemia # Tobacco Use Disorder - Reconcile home medictions once verified Jermaine Fried M.D.
[2023-02-21] MEDS ORDERED: CEFTRIAXONE 1,000 MG in NA CHLORIDE 0.9% 50 ML IVPB SCH (14:43)
[2023-02-21 15:33] LABS: Hematocrit 34.2 % (39.6-49.0)
[2023-02-21 16:13] LABS: Thyroid Stimulating Hormone 1.87 uIU/mL (0.358-3.740)
--- NOTE | 2023-02-21 17:57 | RAD REPORT ---
EXAM DESCRIPTION: CT - Head Brain Wo Cont - 02/21/2023 3:12 pm CLINICAL HISTORY: AMS COMPARISON: Head C Spine Mpr Wo Con dated 03/10/2022 TECHNIQUE: Noncontrast head CT images ad were obtained without IV contrast. Multiplanar reformats we re generated and reviewed. All CT scans are performed using dose optimization technique as appropriate and may include automated exposure control or mA/KV adjustment according to patient size. FINDINGS: No intracranial hemorrhage, mass, or edema. Midline structures are unremarkable. Interval placement of a right posterior approach ventricular shunt. Ventricles are slit-like. Caliber of the third ventricle is also markedly reduced. Nonspecific hypoattenuation throughout most of the corpus callosum, may relate to post hydrocephalus decompression changes. Nonspecific hypoattenuation along the right parietal white matter surrounding the shunt tract, which could relate to shunt malfunction although given the appearance of over shunti ng, other possibilities including encephalomalacia in the setting of prior hemorrhage adjacent to the tract should be considered. No evidence of extra-axial abnormal fluid collections or marked dural ve nous sinus distension. Other patchy subinsular and deep white matter areas of hypoattenuation are not significantly changed and suggest chronic small vessel ischemic changes. Pimentel-white matter differentiation is preserved, wi thout evidence of acute infarct. Mastoid air cells show patchy fluid opacification. No acute bony findings. IMPRESSION: Interval placement of a right posterior approach ventricular shunt. Slit-like appearance of the lateral ventricles, suggesting a degree of intracranial hypotension. Please correlate clinica lly. Nonspecific hypoattenuation in the right parietal white matter along the shunt tract, could relate to shunt malfunction, although given the concern for intracranial hypotension, alternative explanations such as sequelae prior hemorrhage should be considered. Additional nonspecific hypoattenuation throughout most of the corpus callosum, suggesting post hydroc ephalus decompression changes. The findings were communicated to Jermaine Fried on 02/21/2023 at 17:49 hours.
[2023-02-21 18:42] LABS: SARS-CoV-2 Antigen Rapid Res Negative (Negative)
--- NOTE | 2023-02-21 20:32 | P.DS ---
Admission Date: 02/20/23 Discharge Date: 02/22/23 Disposition: TRANSFER TO [facility] Discharge Condition: GOOD Reason for Admission: Urinary tract infection, knee pain. Vital Signs/Physical Exam: Temp Pulse Resp BP Pulse Ox 97.2 F 66 17 113/58 L 93 02/21/23 16:28 02/21/23 16:28 02/21/23 16:28 02/21/23 16:28 02/21/23 16:28 Laboratory Data at Discharge: WBC 10.70 thou/uL (4.3-10.9) 02/21/23 06:27 Hgb 11.8 g/dL (13.6-17.9) L 02/21/23 15:02 Hct 34.2 % (39.6-49.0) L 02/21/23 15:02 Plt Count 225 thou/uL (152-406) 02/21/23 06:27 PT 12.7 SECONDS (9.5-12.5) H 02/20/23 16:17 INR 1.15 02/20/23 16:17 APTT 37.3 SECONDS (24.3-36.9) H 02/20/23 16:17 Sodium 136 mEq/L (136-145) 02/21/23 06:27 Potassium 4.5 mEq/L (3.5-5.1) 02/21/23 06:27 BUN 39 mg/dL (7-18) H 02/21/23 06:27 Creatinine 1.27 mg/dL (0.70-1.30) 02/21/23 06:27 Glucose 120 mg/dL (74-106) H 02/21/23 06:27 Total Bilirubin 0.4 mg/dL (0.2-1.0) 02/21/23 06:27 AST 23 U/L (15-37) 02/21/23 06:27 ALT 60 U/L (16-61) 02/21/23 06:27 Alkaline Phosphatase 78 U/L (45-117) 02/21/23 06:27 Home Medications: RX: Albuterol Sulfate [Proair Hfa] 2 puff IH TID PRN #1 hfa.aer.ad 03/08/19 RX: Aspirin Chewable [Aspirin Chewable*] 81 mg PO DAILY #90 tab.chew 03/08/19 RX: Atorvastatin Calcium [Lipitor] 40 mg PO BEDTIME #30 tab 03/08/19 RX: Clopidogrel Bisulfate [Plavix*] 75 mg PO DAILY #30 tablet 03/08/19 RX: Folic Acid 1 mg PO DAILY #90 tablet 03/08/19 RX: Mometasone/Formoterol [Dulera 100 Mcg/5 Mcg Inhaler] 2 puff IH BID #1 inhaler 03/08/19 RX: Docosahexanoic AC/Epa [Fish Oil 1,000 MG*] 1,000 mg PO BID #60 cap 10/24/20 RX: Donepezil HCl 5 mg PO DAILY 10/24/20 RX: Furosemide [Lasix*] 40 mg PO DAILY #30 tab 10/24/20 RX: Isosorbide Mononitrate [Isosorbide Mononitrate ER] 60 mg PO DAILY 10/24/20 RX: lisinopriL [Prinivil*] 10 mg PO BID #60 tab 10/24/20 Followup: NONE,NONE [Primary Care Provider] -
[2023-02-21] MEDS ORDERED: JUVEN PACKET PO SCH (21:00)
[2023-02-21 22:34] LABS: Hematocrit 44.5 % (39.6-49.0)
--- NOTE | 2023-02-21 23:05 | P.PN ---
Date of Service: 02/21/23 At 17:49, I was notified by Dr. Garner that his CT head revealed, "interval placement of a right posterior approach ventricular shunt. Slit-like appearance of the lateral ventricles, suggesting a degree of intracranial hypotension. Please correlate clinically. Nonspecific hypoattenuation in the right parietal white matter along the shunt tract, could relate to shunt malfunction, although given the concern for intracranial hypotension, alternative explanations such as sequelae prior hemorrhage should be considered." His neurologic examination is unchanged. He remains alert and oriented x 1 to person only. His right pupil is reactive, but left pupil is non-reactive. He speaks clearly, but does not follow commands well. I was able to speak with his , Ms. Porter, who reported that this is worse that his mental baseline. I initiated transfer to [facility] at 17:56 and completed doc-to-doc with Dr. Ibanez ([facility] Neurology), who has generously agreed to have Neurovascular Surgery consult on his case once he arrives at their facility. At 18:23, I received a call back from the transfer center and completed doc-to-doc with Dr. Georges ([facility] Hospitalist), who has generously accepted him for transfer. He is currently pending a bed at [facility]. Will continue to monitor closely here with serial neurologic exams until then. For now, Neurology consulted at our facility. Jermaine Fried M.D.
--- NOTE | 2023-02-22 05:12 | P.DS ---
Admission Date: 02/20/23 Discharge Date: 02/22/23 Disposition: TRANSFER TO [facility] Condition: GOOD Reason for Admission: Urinary tract infection, knee pain. Consultations: Neurosurgery service Brief History of Present Illness: This 77-year-old male patient has medical history significant for hypertension, hyperlipidemia, dementia, history of recent urinary tract infection and recurrent wounds which are deemed pressure ulcers was evaluated for episode of knee pain. There was significant concern for septic process in the joint and this was aspirated with a significant findings. He also had elevated white cell count of 15,000 and his urine analysis was very concerning for urinary tract infection. He was started on empiric antibiotic therapy and he was admitted for inpatient care of his suspected infectious process. At the time of encounter patient seems to be slightly altered. Hospital Course: Family reported patient had significant changes in mentation after he had procedure in which a ventriculoperitoneal shunt was placed. Because of this finding CT of the head was done and findings were concerning. Primary physician initiated transfer to higher level of care secondary to significant concerns about ventriculoperitoneal shunt related issues/neurologic decompensation. Discussions were made with neurosurgical service at [facility] and patient was admitted for neurological evaluation. He was transferred in stable condition to [facility]. Vital Signs/Physical Exam: Temp Pulse Resp BP Pulse Ox 96.8 F 67 17 120/57 L 96 02/22/23 04:00 02/22/23 04:00 02/22/23 04:00 02/22/23 04:00 02/22/23 04:00 General: In no apparent distress HEENT: Normocephalic Respiratory: Normal air movement Cardiovascular: Regular rate/rhythm, Normal S1 S2 Gastrointestinal: Soft and benign Laboratory Data at Discharge: WBC 10.70 thou/uL (4.3-10.9) 02/21/23 06:27 Hgb 14.6 g/dL (13.6-17.9) D 02/21/23 22:00 Hct 44.5 % (39.6-49.0) 02/21/23 22:00 Plt Count 225 thou/uL (152-406) 02/21/23 06:27 PT 12.7 SECONDS (9.5-12.5) H 02/20/23 16:17 INR 1.15 02/20/23 16:17 APTT 37.3 SECONDS (24.3-36.9) H 02/20/23 16:17 Sodium 136 mEq/L (136-145) 02/21/23 06:27 Potassium 4.5 mEq/L (3.5-5.1) 02/21/23 06:27 BUN 39 mg/dL (7-18) H 02/21/23 06:27 Creatinine 1.27 mg/dL (0.70-1.30) 02/21/23 06:27 Glucose 120 mg/dL (74-106) H 02/21/23 06:27 Total Bilirubin 0.4 mg/dL (0.2-1.0) 02/21/23 06:27 AST 23 U/L (15-37) 02/21/23 06:27 ALT 60 U/L (16-61) 02/21/23 06:27 Alkaline Phosphatase 78 U/L (45-117) 02/21/23 06:27 Home Medications: Albuterol Sulfate [Proair Hfa] 2 puff IH TID PRN #1 hfa.aer.ad 03/08/19 Aspirin Chewable [Aspirin Chewable*] 81 mg PO DAILY #90 tab.chew 03/08/19 Atorvastatin Calcium [Lipitor] 40 mg PO BEDTIME #30 tab 03/08/19 Clopidogrel Bisulfate [Plavix*] 75 mg PO DAILY #30 tablet 03/08/19 Folic Acid 1 mg PO DAILY #90 tablet 03/08/19 Mometasone/Formoterol [Dulera 100 Mcg/5 Mcg Inhaler] 2 puff IH BID #1 inhaler 03/08/19 Docosahexanoic AC/Epa [Fish Oil 1,000 MG*] 1,000 mg PO BID #60 cap 10/24/20 Donepezil HCl 5 mg PO DAILY 10/24/20 Furosemide [Lasix*] 40 mg PO DAILY #30 tab 10/24/20 Isosorbide Mononitrate [Isosorbide Mononitrate ER] 60 mg PO DAILY 10/24/20 lisinopriL [Prinivil*] 10 mg PO BID #60 tab 10/24/20 Followup: NONE,NONE [Primary Care Provider] -
[2023-02-23 14:32] VITALS: BP 120/57; TEMP 96.8; O2SAT 97; BMI 27.4
== END 2023-02-22 05:59 | disposition short-term general hospital (02) | DRG 689 ==
LOC: ER 16:02 → ERHOLD 20:31 → 4TH 23:58
PROVIDERS: ADMIT Internal Medicine Nephrology; ATTEND Internal Medicine
PROC: 0S9D3ZZ Drainage of Left Knee Joint, Percutaneous Approach (ICD-10-PCS; principal; 2023-02-20)
DX: N39.0 Urinary tract infection, site not specified (principal); G92.8 Other toxic encephalopathy; I50.22 Chronic systolic (congestive) heart failure; I13.0 Hypertensive heart and chronic kidney disease with heart failure and stage 1 through stage 4 chronic kidney disease, or unspecified chronic kidney disease; M25.062 Hemarthrosis, left knee; N18.30 Chronic kidney disease, stage 3 unspecified; M71.22 Synovial cyst of popliteal space [Baker], left knee; L89.151 Pressure ulcer of sacral region, stage 1; E78.5 Hyperlipidemia, unspecified; M17.12 Unilateral primary osteoarthritis, left knee; F03.90 Unspecified dementia, unspecified severity, without behavioral disturbance, psychotic disturbance, mood disturbance, and anxiety; I25.10 Atherosclerotic heart disease of native coronary artery without angina pectoris; I25.2 Old myocardial infarction; Z96.1 Presence of intraocular lens; Z95.5 Presence of coronary angioplasty implant and graft; Z79.82 Long term (current) use of aspirin; Z98.42 Cataract extraction status, left eye; Z98.41 Cataract extraction status, right eye; Z79.02 Long term (current) use of antithrombotics/antiplatelets; Z79.899 Other long term (current) drug therapy
CPT/HCPCS: 36415; 70450; 72192; 80048; 80053; 81001; 82140; 82607; 83605; 84443; 85014; 85018; 85025; 85610; 85730; 87040; 87070; 87077; 87086; 87088; 87186; 87811; 89050; 89060; 93971; 96374; 99285; J0696; J2001; J7799

== ENCOUNTER → 2023-05-18 | Emergency (ER) | payer OTHER ==
--- NOTE | 2023-05-18 02:08 | EDPHYS ---
Physician Documentation [facility] Name: Zelalem Mendiola Age: 77 yrs Sex: Male : 1945 Arrival Date: 05/18/2023 Time: 02:05 Bed 5 Private MD: ED Physician Tawanda Mccallum HPI: 05/18 02:10 This 77 yrs old Male presents to ER via EMS with complaints of winkler issue. ec2 02:10 Patient arrives today for evaluation after an accidental Winkler removal. Patient has ec2 indwelling Winkler catheter, this was removed with Winkler balloon output. Patient having bleeding from the penis. No other injuries, no other concerns, no abdominal pain.. Historical: - Allergies: 02:09 NKDA; jb4 - PMHx: 02:09 cardiac stent; Hyperlipidemia; Dementia; Cataracts; Hypertension; Myocardial infarction;jb4 - Immunization history:: Adult Immunizations up to date. - Social history:: Smoking status: Patient denies any tobacco usage or history of. ROS: 02:10 Constitutional: as per hpi ec2 Exam: 02:10 Constitutional: GEN: NAD Head: atraumatic Eyes: EOMI Ears: External ears are ec2 normal. CV: regular rate LUNGS: no respiratory distress ABD: non-distended. : Blood at the urethral meatus SKIN: no evidence of rashes MSK: no evidence of trauma NEURO: moves all extremities equally Vital Signs: 02:08 BP 125 / 70; Pulse 75; Resp 16; Temp 97.5(TE); Pulse Ox 95% on R/A; Weight 99.79 kg jb4 (R); Height 5 ft. 9 in. ; Pain 0/10; 02:08 Body Mass Index 32.49 (99.79 kg, 175.26 cm) jb4 02:08 Pain Scale: Adult jb4 MDM: 02:08 Patient medically screened. ec2 02:10 Data reviewed: vital signs. ED course: Patient arrives today for a urethral injury. ec2 Examination remarkable for bleeding at the urethral meatus. Nursing replaced Winkler without issue, scant amount of blood present, otherwise yellow urine evacuated without issue. Will discharge home and have him follow-up with urology. Return precautions given.. 05/18 02:10 Order name: Winkler; Complete Time: 02:11 ec2 Administered Medications: No medications were administered Disposition Summary: 05/18/23 02:08 Discharge Ordered Condition: Stable ec2 Diagnosis - Unspecified injury of urethra, initial encounter ec2 Followup: ec2 - With: Private Physician - When: - Reason: Recheck today's complaints Followup: ec2 - With: Reji Wolf MD - When: - Reason: Recheck today's complaints Discharge Instructions: - Discharge Summary Sheet ec2 - Indwelling Urinary Catheter Insertion ec2 Forms: - Medication Reconciliation Form ec2 - Thank You Letter ec2 - Antibiotic Education ec2 - Prescription Opioid Use ec2 - Patient Portal Instructions ec2 - Leadership Thank You Letter ec2 Signatures: Lowell Johnson RN RN jb4 Tawanda Mccallum MD MD ec2
--- NOTE | 2023-05-18 02:15 | ER ---
Nurse's Notes [facility] Name: Zelalem Mendiola Age: 77 yrs Sex: Male : 1945 Arrival Date: 05/18/2023 Time: 02:05 Bed 5 Private MD: Diagnosis: Unspecified injury of urethra, initial encounter Presentation: 05/18 02:08 Chief complaint: EMS states: [facility] staff called to report Elmore catheter was jb4 removed at shift change and is bleeding. Coronavirus screen: At this time, the client does not indicate any symptoms associated with coronavirus-19. Ebola Screen: No symptoms or risks identified at this time. Initial Sepsis Screen: Does the patient meet any 2 criteria? No. Patient's initial sepsis screen is negative. Does the patient have a suspected source of infection? No. Patient's initial sepsis screen is negative. Risk Assessment: Do you want to hurt yourself or someone else? Patient reports no desire to harm self or others. Onset of symptoms was May 18, 2023. Transition of care: patient was not received from another setting of care. 02:08 Method Of Arrival: EMS: [facility] jb4 02:08 Acuity: PADMAJA 4 jb4 Historical: - Allergies: 02:09 NKDA; jb4 - PMHx: 02:09 cardiac stent; Hyperlipidemia; Dementia; Cataracts; Hypertension; Myocardial infarction;jb4 - Immunization history:: Adult Immunizations up to date. - Social history:: Smoking status: Patient denies any tobacco usage or history of. Screenin:09 [facility] ED Fall Risk Assessment (Adult) History of falling in the last 3 months, jb4 including since admission No falls in past 3 months (0 pts) Confusion or Disorientation No (0 pts). Abuse screen: Denies threats or abuse. Nutritional screening: No deficits noted. Tuberculosis screening: No symptoms or risk factors identified. Assessment: 02:09 General: Appears in no apparent distress. comfortable, Behavior is calm, cooperative, jb4 appropriate for age. Pain: Denies pain. Neuro: Level of Consciousness is awake, alert, obeys commands, Oriented to person, place, time, situation. Cardiovascular: Patient's skin is warm and dry. Respiratory: Airway is patent Respiratory effort is even, unlabored, Respiratory pattern is regular, symmetrical. GI: No signs and/or symptoms were reported involving the gastrointestinal system. : No signs and/or symptoms were reported regarding the genitourinary system. EENT: No signs and/or symptoms were reported regarding the EENT system. Derm: Skin is intact, Skin is pink, warm \T\ dry. Musculoskeletal: Circulation, motion, and sensation intact. Range of motion: intact in all extremities. Vital Signs: 02:08 BP 125 / 70; Pulse 75; Resp 16; Temp 97.5(TE); Pulse Ox 95% on R/A; Weight 99.79 kg jb4 (R); Height 5 ft. 9 in. ; Pain 0/10; 02:08 Body Mass Index 32.49 (99.79 kg, 175.26 cm) jb4 02:08 Pain Scale: Adult jb4 ED Course: 02:07 Patient arrived in ED. rv1 02:07 Tawanda Mccallum MD is Attending Physician. ec2 02:07 Lowell Johnson RN is Primary Nurse. jb4 02:08 Reji Wolf MD is Referral Physician. ec2 02:09 Triage completed. jb4 02:09 Arm band placed on right wrist. jb4 02:09 Patient has correct armband on for positive identification. Bed in low position. Call jb4 light in reach. Side rails up X 1. 02:09 No provider procedures requiring assistance completed. Elmore cath inserted, using jb4 sterile technique, 16 Fr., by ky, balloon inflated, to gravity drainage. Patient did not have IV access during this emergency room visit. Administered Medications: No medications were administered Outcome: 02:08 Discharge ordered by . ec2 02:09 Discharged to home ambulatory, jb4 02:09 Condition: stable 02:09 Discharge instructions given to patient, Instructed on discharge instructions, follow up and referral plans. Demonstrated understanding of instructions, follow-up care, 02:14 Patient left the ED. jb4 Signatures: Lowell Johnson, LILA RN 4 Nano Swift rv1 Tawanda Mccallum MD MD ec2
[2023-05-18 08:38] VITALS: BP 125/70; TEMP 97.5; O2SAT 95
== END ==
LOC: ER 02:05
DX: T83.021A Displacement of indwelling urethral catheter, initial encounter (principal); S37.39XA Other injury of urethra, initial encounter; X58.XXXA Exposure to other specified factors, initial encounter; Y93.89 Activity, other specified; Y92.019 Unspecified place in single-family (private) house as the place of occurrence of the external cause; I25.2 Old myocardial infarction; I10 Essential (primary) hypertension; E78.5 Hyperlipidemia, unspecified; F03.90 Unspecified dementia, unspecified severity, without behavioral disturbance, psychotic disturbance, mood disturbance, and anxiety; Z95.5 Presence of coronary angioplasty implant and graft
CPT/HCPCS: 51702; 99284